=== PATIENT | male | born 1930 | race Two or more races ===

== ENCOUNTER 2017-03-19 10:44 | Inpatient (IN) | payer MEDICAID ==
[~2017-03-19] VITALS: Ht 160 cm; Wt 72.6 kg
[2017-03-19 10:45] VITALS: BP 132/61
[2017-03-19 11:13] LABS: BASOPHILS % (AUTO) 0.6 % (0.0-2.0); EOSINOPHILS % (AUTO) 1.2 % (0.0-3.0); LYMPHOCYTES % (AUTO) 19.1 % (20.0-45.0); MEAN CORPUSCULAR HEMOGLOBIN 29.5 PG (27.0-31.0); MEAN CORPUSCULAR HGB CONC 32.2 G/DL (32.0-36.0); MEAN CORPUSCULAR VOLUME 92 FL (80-99); MEAN PLATELET VOLUME 6.8 FL (6.5-10.1); MONOCYTES % (AUTO) 8.9 % (1.0-10.0); NEUTROPHILS % (AUTO) 70.3 % (45.0-75.0); PLATELET COUNT 199 K/UL (150-450); RED CELL DISTRIBUTION WIDTH 12.7 % (11.6-14.8); WHITE BLOOD COUNT 10.2 K/UL (4.8-10.8)
[2017-03-19] MEDS ORDERED: FLEET ENEMA133 ML RECTAL (11:20)
[2017-03-19] MEDS ORDERED: FERROUS SULFAT325 MG ORAL (11:20)
[2017-03-19] MEDS ORDERED: COLACE100 MG ORAL (11:20)
[2017-03-19] MEDS ORDERED: ASPIR 8181 MG ORAL (11:20)
[2017-03-19] MEDS ORDERED: MILK OF MA400 MG/51 ORAL (11:20)
[2017-03-19] MEDS ORDERED: NAMENDA5 MG ORAL (11:20)
[2017-03-19] MEDS ORDERED: DONEPEZIL HCL10 M2 ORAL (11:20)
[2017-03-19] MEDS ORDERED: TYLENOL325 MG ORAL (11:20)
[2017-03-19] MEDS ORDERED: BISACODYL5 MG RECTAL (11:20)
[2017-03-19 11:21] LABS: APPEARANCE,URINE CLEAR; KETONES,URINE NEGATIVE (NEGATIVE); LEUKOCYTE ESTERASE ,URINE NEGATIVE (NEGATIVE); NITRITE,URINE NEGATIVE (NEGATIVE); PH,URINE 6 (4.5-8.0); PROTEIN,URINE 1+ (NEGATIVE); UROBILINOGEN,URINE NORMAL MG/DL (0.0-1.0)
[2017-03-19 11:30] LABS: TROPONIN I < 0.30 ng/mL (<=0.30)
[2017-03-19 11:33] LABS: ALANINE AMINOTRANSFERASE 14 U/L (3-41); ANION GAP 13 (5-15); ASPARTATE AMINO TRANSFERASE 26 U/L (5-40); CALCIUM 9.7 mg/dL (8.6-10.2); CARBON DIOXIDE 32 mEQ/L (20-30); CHLORIDE 91 mEQ/L (98-107); CREATININE 1.3 mg/dL (0.7-1.2); HEMOLYSIS 2; POTASSIUM 3.2 mEQ/L (3.4-4.9); SODIUM 136 mEQ/L (135-145); TOTAL PROTEIN 7.3 g/dL (6.6-8.7)
[2017-03-19 11:39] LABS: BACTERIA,URINE OCCASIONAL /HPF; RBC,URINE 0-2 /HPF (0 - 0); SQUAMOUS EPITHELIAL CELL,UR OCCASIONAL /LPF (NONE/OCC); WBC,URINE 0-2 /HPF (0 - 0)
[2017-03-19 11:44] LABS: CKMB < 1.5 ng/mL (< 6.7)
[2017-03-19 12:00] VITALS: BP 137/65
--- NOTE | 2017-03-19 12:00 | Diagnostic Imaging Report ---
Indication: Chest Pain Comparison: None A single view chest radiograph was obtained. Findings: Scattered interstitial prominence noted nonspecific. Heart size is normal. Aorta is mildly ectatic. Bones are osteopenic. Impression: Prominence of the pulmonary interstitium, nonspecific.
[2017-03-19] MEDS ORDERED: cefTRIAXone 1 GM in NS 55 ML IVPB ONE (12:45)
[2017-03-19 14:00] VITALS: BP 132/61
--- NOTE | 2017-03-19 14:07 | Emergency Room Report ---
History of Present Illness General Chief Complaint: Abnormal Labs Source: Medical Record, EMS Present Illness HPI 86-year-old male presents to ED for evaluation. Per EMS patient noted to have low potassium. Last blood work showed potassium of 2.9. Upon arrival patient showing no signs of distress. [facility]. Patient has dementia. No reported fevers or chills. No reported chest pain or shortness of breath. No aggravating or relieving factors. No other associated symptoms Allergies: Coded Allergies: No Known Allergies (Unverified , 03/19/17) Patient History Past Medical History: DM, HTN, dementia Past Surgical History: none Pertinent Family History: none Social History: Denies: alcohol use, drug use, smoking Immunizations: UTD Reviewed Nursing Documentation: PMH: Agreed, PSxH: Agreed Nursing Documentation-PMH Past Medical History: No History, Except For Hx Hypertension: Yes Hx Diabetes: Yes Hx Dialysis: No - ACUTE KIDNEY FAILURE Hx Neurological Problems: Yes - ALZHEIMER Hx Cerebrovascular Accident: No - HIP FX Review of Systems All Other Systems: negative except mentioned in HPI Physical Exam Vital Signs Date Time Temp Pulse Resp B/P Pulse Ox O2 Delivery O2 Flow Rate FiO2 03/19/17 10:39 99.1 103 20 118/85 97 03/19/17 10:45 Room Air Sp02 EP Interpretation: reviewed, normal General Appearance: no apparent distress, other - dementia Head: normocephalic, atraumatic Eyes: bilateral eye PERRL, bilateral eye normal inspection ENT: hearing grossly normal, normal pharynx, no angioedema, normal voice Neck: full range of motion, supple/symm/no masses Respiratory: chest non-tender, lungs clear, normal breath sounds, speaking full sentences Cardiovascular #1: regular rate, rhythm, no edema Cardiovascular #2: 2+ carotid (R), 2+ carotid (L), 2+ radial (R), 2+ radial (L) , 2+ dorsalis pedis (R), 2+ dorsalis pedis (L) Gastrointestinal: normal bowel sounds, non tender, soft, non-distended, no guarding, no rebound Rectal: deferred Genitourinary: normal inspection, no CVA tenderness Musculoskeletal: back normal, gait/station normal, normal range of motion, non- tender Neurologic: other - dementia Psychiatric: other - dementia Reflexes: 3+ bicep (R), 3+ bicep (L), 3+ tricep (R), 3+ tricep (L), 3+ knee (R) , 3+ knee (L) Skin: normal color, no rash, warm/dry, well hydrated Lymphatic: no adenopathy Medical Decision Making Diagnostic Impression: Primary Impression: Hypokalemia Additional Impressions: ARF (acute renal failure) Qualified Codes: N17.9 - Acute kidney failure, unspecified UTI (urinary tract infection) Qualified Codes: N39.0 - Urinary tract infection, site not specified ER Course 86 yo M presents to ED for evaluation of abnormal labs. Noted to have low potassium Differential-hypokalemia, dehydration, sepsis Patient placed on stretcher. After initial history physical exam reveals an elderly male in no acute distress. I ordered labs, IV fluids, EKG, chest x-ray Labs-no leukocytosis, hemoglobin/hematocrit stable, creatinine 1.3, potassium 3.2, UA positive bacteria EKG-normal sinus rhythm no acute changes Chest x-ray unremarkable Given IV fluids, potassium repleted, abx given Case discussed with Dr. Elizabeth and he agreed to admit the patient to his service for further care and support diagnosis - hypokalemia, ARF, UTI admitted to floor in serious condition Labs Test 03/19/17 11:01 03/19/17 11:05 White Blood Count 10.2 K/UL (4.8-10.8) Red Blood Count 5.10 M/UL (4.70-6.10) Hemoglobin 15.1 G/DL (14.2-18.0) Hematocrit 46.8 % (42.0-52.0) Mean Corpuscular Volume 92 FL (80-99) Mean Corpuscular Hemoglobin 29.5 PG (27.0-31.0) Mean Corpuscular Hemoglobin Concent 32.2 G/DL (32.0-36.0) Red Cell Distribution Width 12.7 % (11.6-14.8) Platelet Count 199 K/UL (150-450) Mean Platelet Volume 6.8 FL (6.5-10.1) Neutrophils (%) (Auto) 70.3 % (45.0-75.0) Lymphocytes (%) (Auto) 19.1 % (20.0-45.0) Monocytes (%) (Auto) 8.9 % (1.0-10.0) Eosinophils (%) (Auto) 1.2 % (0.0-3.0) Basophils (%) (Auto) 0.6 % (0.0-2.0) Sodium Level 136 mEQ/L (135-145) Potassium Level 3.2 mEQ/L (3.4-4.9) Chloride Level 91 mEQ/L (98-107) Carbon Dioxide Level 32 mEQ/L (20-30) Anion Gap 13 (5-15) Blood Urea Nitrogen 14 mg/dL (7-23) Creatinine 1.3 mg/dL (0.7-1.2) Estimat Glomerular Filtration Rate mL/min (>60) Glucose Level 178 mg/dL (74-106) Calcium Level 9.7 mg/dL (8.6-10.2) Total Bilirubin 0.6 mg/dL (0.0-1.2) Aspartate Amino Transf (AST/SGOT) 26 U/L (5-40) Alanine Aminotransferase (ALT/SGPT) 14 U/L (3-41) Alkaline Phosphatase 149 U/L (40-129) Total Creatine Kinase 54 U/L (38-174) Creatine Kinase MB < 1.5 ng/mL (< 6.7) Creatine Kinase MB Relative Index Troponin I < 0.30 ng/mL (<=0.30) Pro-B-Type Natriuretic Peptide 412 pg/mL (0-450) Total Protein 7.3 g/dL (6.6-8.7) Albumin 3.8 g/dL (3.5-5.2) Globulin 3.5 g/dL Albumin/Globulin Ratio 1.0 (1.0-2.7) Urine Color Pale yellow Urine Appearance Clear Urine pH 6 (4.5-8.0) Urine Specific [place] 1.015 (1.005-1.035) Urine Protein 1+ (NEGATIVE) Urine Glucose (UA) 2+ (NEGATIVE) Urine Ketones Negative (NEGATIVE) Urine Occult Blood 1+ (NEGATIVE) Urine Nitrite Negative (NEGATIVE) Urine Bilirubin Negative (NEGATIVE) Urine Urobilinogen Normal MG/DL (0.0-1.0) Urine Leukocyte Esterase Negative (NEGATIVE) Urine RBC 0-2 /HPF (0 - 0) Urine WBC 0-2 /HPF (0 - 0) Urine Squamous Epithelial Cells Occasional /LPF Urine Bacteria Occasional /HPF (NONE) EKG Diagnostic Results Rate: normal Rhythm: NSR ST Segments: no acute changes ASA given to the pt in ED: No Rhythm Strip Diag. Results EP Interpretation: yes Rhythm: NSR, no PVC's, no ectopy Chest X-Ray Diagnostic Results EP Interpretation: No Findings: no consolidation, no effusion, no pneumothorax, no acute cardiopulmonary disease Number of Views: 1 Last Vital Signs Date Time Temp Pulse Resp B/P Pulse Ox O2 Delivery O2 Flow Rate FiO2 03/19/17 10:45 89 16 Room Air 03/19/17 10:45 99.9 132/61 95 Status: improved Disposition: ADMITTED INPATIENT Condition: Serious Referrals: Gurmeet Elizabeth MD (PCP) ELLIS ESQUEDA M.D. March 19, 2017 14:07
[2017-03-19] MEDS ORDERED: Fleet's Enema 133ml RECTAL PRN (14:45)
[2017-03-19] MEDS ORDERED: Acetaminophen 500mg (ES) tab ORAL ONE (14:45)
[2017-03-19] MEDS ORDERED: Milk of Magnesia 30ml Ud ORAL PRN (14:45)
[2017-03-19 16:14] VITALS: BP 150/68
[2017-03-19] MEDS: Docusate 100mg cap ORAL SCH (17:06)
--- NOTE | 2017-03-19 19:28 | History and Physical Report ---
DATE OF ADMISSION: 03/19/2017 HISTORY OF PRESENT ILLNESS: The patient is transferred to the ER because the patient had a potassium of 2.9 [facility] the [facility]. The patient also has azotemia and being admitted for azotemia, dehydration, and hypokalemia. The patient denies nausea, vomiting, or diarrhea. No fever or chills. No shortness of breath. Denies cough. No abdominal pain. PAST MEDICAL HISTORY: 1. GERD. 2. History of hypertension. 3. History of anemia. 4. History of psychosis and mood disorder. PAST SURGICAL HISTORY: Denies. SOCIAL HISTORY: Denies smoking, alcohol, or illicit drug abuse. FAMILY HISTORY: Noncontributory. REVIEW OF SYSTEMS: HEENT: Denies headache. Respiratory: Denies shortness of breath. Denies cough. Cardiovascular: Denies chest pain. GI: Denies nausea, vomiting, or diarrhea. Extremities: Denies pain in the lower extremities. 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 PHYSICAL EXAMINATION: VITAL SIGNS: Temperature is 97.2 degrees, pulse 70, and blood pressure 130/70. HEENT: PERRLA. NECK: Supple. No lymphadenopathy. CHEST: Clear to auscultation. GI: Soft, nontender, and nondistended. No organomegaly. EXTREMITIES: No edema. Moves all four extremities. NEUROLOGIC: Sensory is intact to light touch. LABORATORY DATA: Laboratory hernandez is significant for creatinine of 1.3, carbon dioxide of 32, and potassium of 3.2. ASSESSMENT: 1. Hypokalemia. 2. Dehydration. 3. Azotemia. PLAN: I have asked Dr. Ashraf to see the patient for the hypokalemia as well as for dehydration and for IV fluids. Gurmeet Elizabeth M.D. DR: RED JOB#: [id number] CC:
[2017-03-19 19:49] VITALS: BP 119/66
[2017-03-19] MEDS: Memantine 5 MG TAB ORAL SCH (21:11)
[2017-03-19] MEDS: Donepezil 10mg tab ORAL SCH (21:11)
[2017-03-19 23:52] VITALS: BP 126/68
[2017-03-20] VITALS: BP 126/68
[2017-03-20 04:00] VITALS: BP 125/68
[2017-03-20 06:43] LABS: BASOPHILS % (AUTO) 0.7 % (0.0-2.0); EOSINOPHILS % (AUTO) 1.5 % (0.0-3.0); LYMPHOCYTES % (AUTO) 24.4 % (20.0-45.0); MEAN CORPUSCULAR HEMOGLOBIN 30.2 PG (27.0-31.0); MEAN CORPUSCULAR VOLUME 92 FL (80-99); MEAN PLATELET VOLUME 7.1 FL (6.5-10.1); MONOCYTES % (AUTO) 9.7 % (1.0-10.0); NEUTROPHILS % (AUTO) 63.8 % (45.0-75.0); PLATELET COUNT 188 K/UL (150-450); RED BLOOD COUNT 4.51 M/UL (4.70-6.10); RED CELL DISTRIBUTION WIDTH 12.7 % (11.6-14.8); WHITE BLOOD COUNT 9.6 K/UL (4.8-10.8)
[2017-03-20 06:59] LABS: HEMOGLOBIN A1C 5.9 % (< 6.0)
[2017-03-20 07:25] LABS: THYROID STIMULATING HORMONE 0.374 uIU/mL (0.300-4.500)
[2017-03-20 07:33] LABS: ALANINE AMINOTRANSFERASE 11 U/L (3-41); ALBUMIN/GLOBULIN RATIO 0.7 (1.0-2.7); ANION GAP 13 (5-15); ASPARTATE AMINO TRANSFERASE 20 U/L (5-40); CALCIUM 9.6 mg/dL (8.6-10.2); CARBON DIOXIDE 29 mEQ/L (20-30); CHLORIDE 94 mEQ/L (98-107); CREATININE 1.3 mg/dL (0.7-1.2); CRP QUANT 17.9 mg/dL (< 0.5); HEMOLYSIS 7; MAGNESIUM 1.4 mg/dL (1.7-2.5); PHOSPHORUS 2.8 mg/dL (2.5-4.8); POTASSIUM 3.2 mEQ/L (3.4-4.9); SODIUM 136 mEQ/L (135-145); TOTAL PROTEIN 7.3 g/dL (6.6-8.7); URIC ACID 7.3 mg/dL (3.0-7.5)
[2017-03-20 08:00] VITALS: BP 116/70
[2017-03-20] MEDS: Memantine 5 MG TAB ORAL SCH ×2 (09:14→21:15)
[2017-03-20] MEDS: Aspirin EC 81mg tab ORAL SCH (09:16)
[2017-03-20] MEDS: Acetaminophen 500mg (ES) tab ORAL PRN (09:16)
[2017-03-20] MEDS: Docusate 100mg cap ORAL SCH ×3 (09:16→17:31)
--- NOTE | 2017-03-20 10:41 | General Progress Note ---
Assessment/Plan Problem List: (1) Hypokalemia ICD Codes: E87.6 - Hypokalemia SNOMED: 51084646 (2) ARF (acute renal failure) ICD Codes: N17.9 - Acute kidney failure, unspecified SNOMED: 20518558 Qualifiers: Qualified Codes: N17.9 - Acute kidney failure, unspecified Status: progressing Assessment/Plan check lytes arf dehyration is improving afebrile vitals stable Subjective ROS Limited/Unobtainable: Yes Constitutional: Reports: no symptoms Allergies: Coded Allergies: No Known Allergies (Unverified , 03/19/17) Objective Last 24 Hour Vital Signs Date Time Temp Pulse Resp B/P Pulse Ox O2 Delivery O2 Flow Rate FiO2 03/20/17 10:15 97.5 03/20/17 08:00 97.5 103 18 116/70 95 Room Air 03/20/17 04:00 98.4 99 18 125/68 94 Room Air 03/20/17 00:00 98.4 102 18 126/68 94 Room Air 03/19/17 23:52 98.4 102 18 126/68 94 Room Air 03/19/17 19:49 98.6 112 20 119/66 92 Room Air 03/19/17 16:14 97.3 98 23 150/68 93 Room Air 03/19/17 15:19 95 17 130/65 96 Room Air 03/19/17 14:00 98.7 92 18 132/61 97 Room Air 03/19/17 12:00 98.6 94 19 137/65 97 Room Air 03/19/17 10:45 89 16 Room Air 03/19/17 10:45 99.9 89 16 132/61 95 Room Air Intake and Output 03/19/17 03/20/17 19:00 07:00 Intake Total 555 ml Output Total 326 ml 700 ml Balance 229 ml -700 ml IV Total 555 ml Output Urine Total 325 ml 700 ml Stool Total 1 ml # Bowel Movements 2 Laboratory Tests 03/19/17 11:01: White Blood Count 10.2, Red Blood Count 5.10, Hemoglobin 15.1, Hematocrit 46.8, Mean Corpuscular Volume 92, Mean Corpuscular Hemoglobin 29.5, Mean Corpuscular Hemoglobin Concent 32.2, Red Cell Distribution Width 12.7, Platelet Count 199, Mean Platelet Volume 6.8, Neutrophils (%) (Auto) 70.3, Lymphocytes (%) (Auto) 19.1L, Monocytes (%) (Auto) 8.9, Eosinophils (%) (Auto) 1.2, Basophils (%) (Auto ) 0.6, Sodium Level 136, Potassium Level 3.2L, Chloride Level 91L, Carbon Dioxide Level 32H, Anion Gap 13, Blood Urea Nitrogen 14, Creatinine 1.3H, Estimat Glomerular Filtration Rate , Glucose Level 178H, Calcium Level 9.7, Total Bilirubin 0.6, Aspartate Amino Transf (AST/SGOT) 26, Alanine Aminotransferase (ALT/SGPT) 14, Alkaline Phosphatase 149H, Total Creatine Kinase 54, Creatine Kinase MB < 1.5, Creatine Kinase MB Relative Index , Troponin I < 0.30, Pro-B-Type Natriuretic Peptide 412, Total Protein 7.3, Albumin 3.8, Globulin 3.5, Albumin/Globulin Ratio 1.0 03/19/17 11:05: Urine Color Pale yellow, Urine Appearance Clear, Urine pH 6, Urine Specific Dixon 1.015, Urine Protein 1+H, Urine Glucose (UA) 2+H, Urine Ketones Negative , Urine Occult Blood 1+H, Urine Nitrite Negative, Urine Bilirubin Negative, Urine Urobilinogen Normal, Urine Leukocyte Esterase Negative, Urine RBC 0-2H, Urine WBC 0-2, Urine Squamous Epithelial Cells Occasional, Urine Bacteria Occasional 03/20/17 05:20: White Blood Count 9.6, Red Blood Count 4.51L, Hemoglobin 13.6L, Hematocrit 41.3L , Mean Corpuscular Volume 92, Mean Corpuscular Hemoglobin 30.2, Mean Corpuscular Hemoglobin Concent 33.0, Red Cell Distribution Width 12.7, Platelet Count 188, Mean Platelet Volume 7.1, Neutrophils (%) (Auto) 63.8, Lymphocytes (% ) (Auto) 24.4, Monocytes (%) (Auto) 9.7, Eosinophils (%) (Auto) 1.5, Basophils ( %) (Auto) 0.7, Sodium Level 136, Potassium Level 3.2L, Chloride Level 94L, Carbon Dioxide Level 29, Anion Gap 13, Blood Urea Nitrogen 15, Creatinine 1.3H, Estimat Glomerular Filtration Rate , Glucose Level 140H, Calcium Level 9.6, Total Bilirubin 0.6, Aspartate Amino Transf (AST/SGOT) 20, Alanine Aminotransferase (ALT/SGPT) 11, Alkaline Phosphatase 135H, Total Creatine Kinase 44, Pro-B-Type Natriuretic Peptide 571H, Total Protein 7.3, Albumin 3.1L , Globulin 4.2, Albumin/Globulin Ratio 0.7L, Hemoglobin A1c 5.9, Uric Acid 7.3, Phosphorus Level 2.8, Magnesium Level 1.4L, Gamma Glutamyl Transpeptidase 58, C- Reactive Protein, Quantitative 17.9H, Thyroid Stimulating Hormone (TSH) 0.374 Height (Feet): 5 Height (Inches): 3.00 Weight (Pounds): 160 EENT: PERRL/EOMI Neck: supple Cardiovascular: normal rate Respiratory/Chest: lungs clear Gurmeet Elizabeth MD March 20, 2017 10:41
--- NOTE | 2017-03-20 11:02 | Consultation ---
Consult Note Consult Note asked to eval for hypokalemia 86-year-old male presents to ED for evaluation. Per EMS patient noted to have low potassium. Last blood work showed potassium of 2.9. Upon arrival patient showing no signs of distress. Patient resides in [facility]. Patient has dementia. No reported fevers or chills. No reported chest pain or shortness of breath. No aggravating or relieving factors. No other associated symptoms Past Medical History: DM, HTN, dementia Past Surgical History: none Past Medical History: No History, Except For Hx Hypertension: Yes Hx Diabetes: Yes Hx Dialysis: No - ACUTE KIDNEY FAILURE Hx Neurological Problems: Yes - ALZHEIMER Hx Cerebrovascular Accident: No - HIP FX Patient examined- data reviewed . Assessment/Plan status: elevated serum Cr , with UA abnormal (2+ protein) , likely Diabetic Nephropathy Hypokalemia ? increase loss of GI Dementia DM Plan: K supplement IV bollous U Na Flomax FU lytes and renal parameters MARIA ESTHER CARIAS March 20, 2017 11:02
[2017-03-20 12:00] VITALS: BP 119/68
--- NOTE | 2017-03-20 12:47 | Cardiology Report ---
APPROVED REPORT EKG Measurement Heart [id number] Normal sinus rhythm Normal ECG
[2017-03-20 16:00] VITALS: BP 115/59
[2017-03-20 19:38] VITALS: BP 141/56
[2017-03-20] MEDS: Tamsulosin 0.4mg cap ORAL SCH (21:15)
[2017-03-20] MEDS: Donepezil 10mg tab ORAL SCH (21:15)
--- NOTE | 2017-03-20 23:07 | Consultation ---
Consult Note Consult Note HEMATOLOGY/ONCOLOGY CONSULT REASON FOR CONSULTATION: weight loss DATE OF ADMISSION: 03/19/2017 DATE OF CONSULT: 03/20/17 MERE MD: ANA HISTORY OF PRESENT ILLNESS: 86y old male with a pmhx DM, HTN transferred to the ER from [facility], because the [facility]. The patient also has azotemia and being admitted for azotemia, dehydration, and hypokalemia. The patient denies nausea, vomiting, or diarrhea. No fever or chills. No shortness of breath. Denies cough. No abdominal pain. Patient's BSA was 1.76 73kg and oncology service was consulted for further evaluation and treatment. PAST MEDICAL HISTORY: 1. GERD. 2. History of hypertension. 3. History of anemia. 4. History of psychosis and mood disorder. PAST SURGICAL HISTORY: Denies. SOCIAL HISTORY: Denies smoking, alcohol, or illicit drug abuse. FAMILY HISTORY: Noncontributory. REVIEW OF SYSTEMS: Constitutional: No fever, no chills, no night sweats, no fatigue Skin: No rashes, lumps, itchiness, dryness HEENT: No LUO, ear ache, visual changes, double vision, nosebleeds, sore throat, lumps, swollen glands Breasts: No lumps, pain, discharge Pulmonary: No cough, sputum, shortness of breath, coughing up blood, hemoptysis Cardiovascular: No chest pain, tightness, palpitations, syncope, claudication, orthopnea, PND GI: No nausea, vomiting, diarrhea, melena, hematochezia, change in appetite, abdominal pain : No dysuria, frequency, urgency, urinary incontinence, foamy urine Musculoskeletal: No joint swelling or muscle pain, trauma, back pain Neurologic: No dizziness, fainting, seizures, changes in smell or taste Psychiatric: No nervousness, stress, or depression, anxiety, hallucinations Endocrine: No weight change, heat or cold intolerance, tremor, insomnia PHYSICAL EXAMINATION: VITAL SIGNS: Reviewed and clinically stable HEENT: PERRLA. NECK: Supple. No lymphadenopathy. CHEST: Clear to auscultation. GI: Soft, nontender, and nondistended. No organomegaly. EXTREMITIES: No edema. Moves all four extremities. NEUROLOGIC: Sensory is intact to light touch. LABORATORY DATA: Creatinine of 1.3, carbon dioxide of 32, and potassium of 3.2. ASSESSMENT AND RECS: #. Weight loss - will need to obtain [facility] and send off for tumor markers. His BSA is 1.76, this is his 1st admission at [facility], need to establish a baseline. At this time, given advanced age and current functional status, hold off from aggressive imaging as would likely not receive aggressive therapy if malignancy found #. Anemia 2/2 chronic disease - monitor closely, is mild #. Hypokalemia. #. Dehydration. #. Azotemia. #. DM hx #. HTN Damian Batres March 20, 2017 23:07
[2017-03-21] VITALS: BP 139/57
[2017-03-21 04:00] VITALS: BP 142/55
[2017-03-21 07:44] LABS: ALANINE AMINOTRANSFERASE 12 U/L (3-41); ALBUMIN/GLOBULIN RATIO 0.7 (1.0-2.7); ANION GAP 13 (5-15); ASPARTATE AMINO TRANSFERASE 20 U/L (5-40); CALCIUM 9.5 mg/dL (8.6-10.2); CARBON DIOXIDE 29 mEQ/L (20-30); CHLORIDE 96 mEQ/L (98-107); CREATININE 1.3 mg/dL (0.7-1.2); HEMOLYSIS 2; MAGNESIUM 1.4 mg/dL (1.7-2.5); PHOSPHORUS 3.1 mg/dL (2.5-4.8); POTASSIUM 3.5 mEQ/L (3.4-4.9); SODIUM 138 mEQ/L (135-145)
[2017-03-21 07:53] VITALS: BP 109/60
[2017-03-21] MEDS: Memantine 5 MG TAB ORAL SCH ×2 (07:58→21:01)
[2017-03-21] MEDS: Docusate 100mg cap ORAL SCH ×3 (07:59→17:00)
[2017-03-21] MEDS: Aspirin EC 81mg tab ORAL SCH (07:59)
--- NOTE | 2017-03-21 10:51 | General Progress Note ---
Assessment/Plan Assessment/Plan ASSESSMENT AND RECS: #. Weight loss - will need to obtain records from shelter, his BSA is 1.76 , this is his 1st admission at [facility], need to establish a baseline. At this time, given advanced age and current functional status, hold off from aggressive imaging as would likely not receive aggressive therapy if malignancy found. tumor markers have been reviewed and thus far have yasemin negative #. Anemia 2/2 chronic disease - monitor closely, is mild only, does not require transfusions #. Hypokalemia #. Dehydration #. Azotemia #. DM hx #. HTN Subjective Constitutional: Reports: no symptoms HEENT: Reports: no symptoms Cardiovascular: Reports: no symptoms Respiratory: Reports: no symptoms Genitourinary: Reports: no symptoms Neurologic/Psychiatric: Reports: no symptoms Endocrine: Reports: no symptoms Hematologic/Lymphatic: Reports: no symptoms Allergies: Coded Allergies: No Known Allergies (Unverified , 03/19/17) Subjective stable, no events to review, no fevers or chills noted Objective Last 24 Hour Vital Signs Date Time Temp Pulse Resp B/P Pulse Ox O2 Delivery O2 Flow Rate FiO2 03/21/17 07:53 97.2 105 21 109/60 92 Room Air 03/21/17 04:00 98.2 58 20 142/55 97 Room Air 03/21/17 00:00 98.2 58 18 139/57 96 Room Air 03/20/17 19:38 98.9 98 20 141/56 98 Room Air 03/20/17 16:00 97.8 88 18 115/59 97 Room Air 03/20/17 12:00 98.2 93 18 119/68 97 Room Air Intake and Output 03/20/17 03/21/17 19:00 07:00 Intake Total 1200 ml Output Total 600 ml 550 ml Balance 600 ml -550 ml Intake Oral 700 ml IV Total 500 ml Output Urine Total 600 ml 550 ml # Bowel Movements 1 1 Laboratory Tests 03/20/17 13:00: Urine Random Sodium 66 03/21/17 04:35: Sodium Level 138, Potassium Level 3.5, Chloride Level 96L, Carbon Dioxide Level 29, Anion Gap 13, Blood Urea Nitrogen 18, Creatinine 1.3H, Estimat Glomerular Filtration Rate , Glucose Level 139H, Calcium Level 9.5, Phosphorus Level 3.1, Magnesium Level 1.4L, Ferritin 121, Total Bilirubin 0.5, Aspartate Amino Transf (AST/SGOT) 20, Alanine Aminotransferase (ALT/SGPT) 12, Alkaline Phosphatase 134H , Total Protein 7.0, Albumin 3.0L, Globulin 4.0, Albumin/Globulin Ratio 0.7L, Alpha Fetoprotein [Pending], Carcinoembryonic Antigen 2.0, CA 19-9 Antigen 6.35 , CA 125 Antigen [Pending] Height (Feet): 5 Height (Inches): 3.00 Weight (Pounds): 160 General Appearance: no apparent distress EENT: TMs normal Neck: normal alignment Cardiovascular: regular rhythm Respiratory/Chest: normal breath sounds Abdomen: no organomegaly Extremities: non-tender Edema: 1+ Leg (L), 1+ Leg (R) Edema: mild edema Neurologic: alert Skin: warm/dry Damian Batres March 21, 2017 10:51
[2017-03-21 12:00] VITALS: BP 108/61
--- NOTE | 2017-03-21 12:19 | General Progress Note ---
Assessment/Plan Status: stable Assessment/Plan Status: elevated serum Cr , with UA abnormal (2+ protein) , likely Diabetic Nephropathy Hypokalemia ? increase loss of GI : corrected Dementia DM Plan: K supplement Mag supplement- U Na : 66 Flomax FU lytes and renal parameters Subjective ROS Limited/Unobtainable: No Allergies: Coded Allergies: No Known Allergies (Unverified , 03/19/17) Objective Last 24 Hour Vital Signs Date Time Temp Pulse Resp B/P Pulse Ox O2 Delivery O2 Flow Rate FiO2 03/21/17 07:53 97.2 105 21 109/60 92 Room Air 03/21/17 04:00 98.2 58 20 142/55 97 Room Air 03/21/17 00:00 98.2 58 18 139/57 96 Room Air 03/20/17 19:38 98.9 98 20 141/56 98 Room Air 03/20/17 16:00 97.8 88 18 115/59 97 Room Air Intake and Output 03/20/17 03/21/17 19:00 07:00 Intake Total 1200 ml Output Total 600 ml 550 ml Balance 600 ml -550 ml Intake Oral 700 ml IV Total 500 ml Output Urine Total 600 ml 550 ml # Bowel Movements 1 1 Laboratory Tests 03/20/17 13:00: Urine Random Sodium 66 03/21/17 04:35: Sodium Level 138, Potassium Level 3.5, Chloride Level 96L, Carbon Dioxide Level 29, Anion Gap 13, Blood Urea Nitrogen 18, Creatinine 1.3H, Estimat Glomerular Filtration Rate , Glucose Level 139H, Calcium Level 9.5, Phosphorus Level 3.1, Magnesium Level 1.4L, Ferritin 121, Total Bilirubin 0.5, Aspartate Amino Transf (AST/SGOT) 20, Alanine Aminotransferase (ALT/SGPT) 12, Alkaline Phosphatase 134H , Total Protein 7.0, Albumin 3.0L, Globulin 4.0, Albumin/Globulin Ratio 0.7L, Alpha Fetoprotein [Pending], Carcinoembryonic Antigen 2.0, CA 19-9 Antigen 6.35 , CA 125 Antigen [Pending] Height (Feet): 5 Height (Inches): 3.00 Weight (Pounds): 160 General Appearance: no apparent distress Cardiovascular: other - variable Abdomen: soft Objective PE not changed MARIA ESTHER CARIAS March 21, 2017 12:19
[2017-03-21 16:00] VITALS: BP 120/58
[2017-03-21 20:10] VITALS: BP 124/70
[2017-03-21] MEDS: Tamsulosin 0.4mg cap ORAL SCH (21:01)
[2017-03-21] MEDS: Donepezil 10mg tab ORAL SCH (21:03)
[2017-03-22 00:03] VITALS: BP 134/70
[2017-03-22] MEDS: Acetaminophen 500mg (ES) tab ORAL PRN (01:50)
[2017-03-22 08:05] VITALS: BP 133/95
[2017-03-22] MEDS: Docusate 100mg cap ORAL SCH ×3 (08:37→17:26)
[2017-03-22] MEDS: Memantine 5 MG TAB ORAL SCH ×2 (08:37→21:56)
[2017-03-22] MEDS: Aspirin EC 81mg tab ORAL SCH (08:37)
--- NOTE | 2017-03-22 09:42 | General Progress Note ---
Assessment/Plan Status: stable Assessment/Plan Status: elevated serum Cr , with UA abnormal (2+ protein) , likely Diabetic Nephropathy Hypokalemia ? increase loss of GI : corrected Dementia DM Plan: no labs today K supplement as needed Mag supplement- as needed U Na : 66 Flomax FU lytes and renal parameters ? DC Subjective ROS Limited/Unobtainable: No Constitutional: Reports: malaise Allergies: Coded Allergies: No Known Allergies (Unverified , 03/19/17) Objective Last 24 Hour Vital Signs Date Time Temp Pulse Resp B/P Pulse Ox O2 Delivery O2 Flow Rate FiO2 03/22/17 08:05 97.9 85 19 133/95 95 Room Air 03/22/17 02:49 97.2 03/22/17 00:03 97.2 99 22 134/70 94 Room Air 03/21/17 20:10 98.4 95 22 124/70 92 Room Air 03/21/17 16:00 96.6 96 20 120/58 93 Room Air 03/21/17 12:00 96.4 104 20 108/61 92 Room Air Intake and Output 03/21/17 03/22/17 19:00 07:00 Intake Total 300 ml 200 ml Output Total 500 ml 400 ml Balance -200 ml -200 ml Intake Oral 300 ml IV Total 200 ml Output Urine Total 500 ml 400 ml # Voids 2 Height (Feet): 5 Height (Inches): 3.00 Weight (Pounds): 160 General Appearance: no apparent distress Objective PE not changed MARIA ESTHER CARIAS March 22, 2017 09:42
[2017-03-22 12:15] VITALS: BP 142/81
--- NOTE | 2017-03-22 14:45 | General Progress Note ---
Assessment/Plan Problem List: (1) Hypokalemia ICD Codes: E87.6 - Hypokalemia SNOMED: [id number] (2) ARF (acute renal failure) ICD Codes: N17.9 - Acute kidney failure, unspecified SNOMED: 96757604 Qualifiers: Qualified Codes: N17.9 - Acute kidney failure, unspecified Status: progressing Assessment/Plan afebrile lyte abnormality is improving vitals stable Subjective ROS Limited/Unobtainable: Yes Constitutional: Reports: no symptoms Allergies: Coded Allergies: No Known Allergies (Unverified , 03/19/17) Objective Last 24 Hour Vital Signs Date Time Temp Pulse Resp B/P Pulse Ox O2 Delivery O2 Flow Rate FiO2 03/22/17 12:15 97.8 75 20 142/81 98 Room Air 03/22/17 08:05 97.9 85 19 133/95 95 Room Air 03/22/17 02:49 97.2 03/22/17 00:03 97.2 99 22 134/70 94 Room Air 03/21/17 20:10 98.4 95 22 124/70 92 Room Air 03/21/17 16:00 96.6 96 20 120/58 93 Room Air Intake and Output 03/21/17 03/22/17 19:00 07:00 Intake Total 300 ml 200 ml Output Total 500 ml 400 ml Balance -200 ml -200 ml Intake Oral 300 ml IV Total 200 ml Output Urine Total 500 ml 400 ml # Voids 2 Height (Feet): 5 Height (Inches): 3.00 Weight (Pounds): 160 EENT: PERRL/EOMI Neck: supple Cardiovascular: normal rate Respiratory/Chest: lungs clear Gurmeet Elizabeth MD March 22, 2017 14:45
[2017-03-22 15:48] VITALS: BP 127/68
--- NOTE | 2017-03-22 16:52 | General Progress Note ---
Assessment/Plan Assessment/Plan ASSESSMENT AND RECS: #. Weight loss - will need to obtain records from [facility] and send off for tumor markers. #. Anemia 2/2 chronic disease - monitor closely, is mild #. Hypokalemia. #. Dehydration. #. Azotemia. #. DM hx #. HTN Medardo Otero M.D. March 20, 2017 23:07 Subjective Constitutional: Reports: no symptoms HEENT: Reports: no symptoms Cardiovascular: Reports: no symptoms Respiratory: Reports: no symptoms Gastrointestinal/Abdominal: Reports: no symptoms Genitourinary: Reports: no symptoms Neurologic/Psychiatric: Reports: no symptoms Endocrine: Reports: no symptoms Hematologic/Lymphatic: Reports: no symptoms Allergies: Coded Allergies: No Known Allergies (Unverified , 03/19/17) Objective Last 24 Hour Vital Signs Date Time Temp Pulse Resp B/P Pulse Ox O2 Delivery O2 Flow Rate FiO2 03/22/17 15:48 98.0 85 20 127/68 97 Room Air 03/22/17 12:15 97.8 75 20 142/81 98 Room Air 03/22/17 08:05 97.9 85 19 133/95 95 Room Air 03/22/17 02:49 97.2 03/22/17 00:03 97.2 99 22 134/70 94 Room Air 03/21/17 20:10 98.4 95 22 124/70 92 Room Air Intake and Output 03/21/17 03/22/17 19:00 07:00 Intake Total 300 ml 200 ml Output Total 500 ml 400 ml Balance -200 ml -200 ml Intake Oral 300 ml IV Total 200 ml Output Urine Total 500 ml 400 ml # Voids 2 Height (Feet): 5 Height (Inches): 3.00 Weight (Pounds): 160 General Appearance: no apparent distress EENT: normal ENT inspection Neck: supple Cardiovascular: regular rhythm Respiratory/Chest: lungs clear Abdomen: non tender Pelvis: no masses Extremities: non-tender Edema: no edema noted Arm (L), no edema noted Arm (R), no edema noted Leg (L), no edema noted Leg (R), no edema noted Pedal (L), no edema noted Pedal (R), no edema noted Generalized Neurologic: alert Skin: warm/dry Lymphatic: normal anterior cervical (L), normal anterior cervical (R), normal axillary (L), normal axillary (R), normal inguinal (L), normal inguinal (R), normal other, normal posterior cervical (L), normal posterior cervical (R), normal submandibular (L), normal submandibular (R), normal supraclavicular (L), normal supraclavicular (R) KOKO SALAZAR March 22, 2017 16:52
[2017-03-22 19:59] VITALS: BP 125/68
[2017-03-22] MEDS: Donepezil 10mg tab ORAL SCH (21:57)
[2017-03-22] MEDS: Tamsulosin 0.4mg cap ORAL SCH (21:57)
[2017-03-23] VITALS: BP 119/66
[2017-03-23 04:00] VITALS: BP 114/68
[2017-03-23 08:00] VITALS: BP 122/61
[2017-03-23] MEDS: Memantine 5 MG TAB ORAL SCH ×2 (09:09→21:19)
[2017-03-23] MEDS: Docusate 100mg cap ORAL SCH ×3 (09:09→17:13)
[2017-03-23] MEDS: Aspirin EC 81mg tab ORAL SCH (09:09)
--- NOTE | 2017-03-23 09:16 | General Progress Note ---
Assessment/Plan Problem List: (1) Hypokalemia ICD Codes: E87.6 - Hypokalemia SNOMED: 94110481 (2) ARF (acute renal failure) ICD Codes: N17.9 - Acute kidney failure, unspecified SNOMED: 64133916 Qualifiers: Qualified Codes: N17.9 - Acute kidney failure, unspecified Status: progressing Assessment/Plan lyte abnormailty afebrile vitals stable no cp dc planning lytes normalized Subjective ROS Limited/Unobtainable: Yes Allergies: Coded Allergies: No Known Allergies (Unverified , 03/19/17) Objective Last 24 Hour Vital Signs Date Time Temp Pulse Resp B/P Pulse Ox O2 Delivery O2 Flow Rate FiO2 03/23/17 08:00 97.5 98 20 122/61 98 Room Air 03/23/17 04:00 97.9 69 20 114/68 97 Room Air 03/23/17 00:00 97.9 72 20 119/66 99 Room Air 03/22/17 19:59 97.9 91 20 125/68 99 Room Air 03/22/17 15:48 98.0 85 20 127/68 97 Room Air 03/22/17 12:15 97.8 75 20 142/81 98 Room Air Intake and Output 03/22/17 03/23/17 19:00 07:00 Intake Total 1380 ml 120 ml Output Total 1380 ml 750 ml Balance 0 ml -630 ml Intake Oral 1380 ml 120 ml Output Urine Total 1380 ml 750 ml # Voids 4 # Bowel Movements 1 Height (Feet): 5 Height (Inches): 3.00 Weight (Pounds): 160 Cardiovascular: normal rate Respiratory/Chest: lungs clear Gurmeet Elizabeth MD March 23, 2017 09:16
[2017-03-23] MEDS ORDERED: NS 275ml ONE (09:32)
[2017-03-23] MEDS ORDERED: NS 550ML IV ONE (09:32)
--- NOTE | 2017-03-23 10:28 | General Progress Note ---
Assessment/Plan Status: stable Assessment/Plan Status: elevated serum Cr , with UA abnormal (2+ protein) , likely Diabetic Nephropathy Hypokalemia ? increase loss of GI : corrected Dementia DM Plan: no labs today K supplement as needed Mag supplement- as needed U Na : 66 Flomax FU lytes and renal parameters ? DC Subjective ROS Limited/Unobtainable: No Constitutional: Reports: malaise Allergies: Coded Allergies: No Known Allergies (Unverified , 03/19/17) Objective Last 24 Hour Vital Signs Date Time Temp Pulse Resp B/P Pulse Ox O2 Delivery O2 Flow Rate FiO2 03/23/17 08:00 97.5 98 20 122/61 98 Room Air 03/23/17 04:00 97.9 69 20 114/68 97 Room Air 03/23/17 00:00 97.9 72 20 119/66 99 Room Air 03/22/17 19:59 97.9 91 20 125/68 99 Room Air 03/22/17 15:48 98.0 85 20 127/68 97 Room Air 03/22/17 12:15 97.8 75 20 142/81 98 Room Air Intake and Output 03/22/17 03/23/17 19:00 07:00 Intake Total 1380 ml 120 ml Output Total 1380 ml 750 ml Balance 0 ml -630 ml Intake Oral 1380 ml 120 ml Output Urine Total 1380 ml 750 ml # Voids 4 # Bowel Movements 1 Height (Feet): 5 Height (Inches): 3.00 Weight (Pounds): 160 General Appearance: no apparent distress Objective PE not changed MARIA ESTHER CARIAS March 23, 2017 10:28
[2017-03-23 11:56] VITALS: BP 129/76
--- NOTE | 2017-03-23 13:32 | General Progress Note ---
Assessment/Plan Assessment/Plan ASSESSMENT AND RECS: #. Weight loss - will need to obtain records from [facility], his BSA is 1.76 , this is his 1st admission at [facility], need to establish a baseline. At this time, given advanced age and current functional status, hold off from aggressive imaging as would likely not receive aggressive therapy if malignancy found. tumor markers have been reviewed and thus far have been negative #. Anemia 2/2 chronic disease - monitor closely, is mild only, does not require transfusions #. Hypokalemia #. Dehydration #. Azotemia #. DM hx #. HTN Subjective Constitutional: Reports: no symptoms HEENT: Reports: no symptoms Cardiovascular: Reports: no symptoms Respiratory: Reports: no symptoms Gastrointestinal/Abdominal: Reports: poor appetite Genitourinary: Reports: no symptoms Neurologic/Psychiatric: Reports: no symptoms Endocrine: Reports: no symptoms Hematologic/Lymphatic: Reports: anemia Allergies: Coded Allergies: No Known Allergies (Unverified , 03/19/17) Subjective stable, no events to review, no fevers or chills noted Objective Last 24 Hour Vital Signs Date Time Temp Pulse Resp B/P Pulse Ox O2 Delivery O2 Flow Rate FiO2 03/23/17 11:56 97.7 90 16 129/76 96 Room Air 03/23/17 08:00 97.5 98 20 122/61 98 Room Air 03/23/17 04:00 97.9 69 20 114/68 97 Room Air 03/23/17 00:00 97.9 72 20 119/66 99 Room Air 03/22/17 19:59 97.9 91 20 125/68 99 Room Air 03/22/17 15:48 98.0 85 20 127/68 97 Room Air Intake and Output 03/22/17 03/23/17 19:00 07:00 Intake Total 1380 ml 120 ml Output Total 1380 ml 750 ml Balance 0 ml -630 ml Intake Oral 1380 ml 120 ml Output Urine Total 1380 ml 750 ml # Voids 4 # Bowel Movements 1 Height (Feet): 5 Height (Inches): 3.00 Weight (Pounds): 160 General Appearance: alert EENT: TMs normal Neck: supple Cardiovascular: regular rhythm Respiratory/Chest: no respiratory distress Abdomen: no organomegaly Extremities: non-tender Edema: 1+ Leg (L), 1+ Leg (R) Edema: mild edema Neurologic: alert Skin: warm/dry Kleynberg,Damian L. March 23, 2017 13:32
[2017-03-23 16:00] VITALS: BP 133/74
[2017-03-23 20:10] VITALS: BP 128/70
[2017-03-23] MEDS: Donepezil 10mg tab ORAL SCH (21:19)
[2017-03-23] MEDS: Tamsulosin 0.4mg cap ORAL SCH (21:19)
[2017-03-24 00:12] VITALS: BP 127/77
[2017-03-24 04:00] VITALS: BP 126/71
[2017-03-24] MEDS: Acetaminophen 500mg (ES) tab ORAL PRN (04:03)
[2017-03-24 08:01] VITALS: BP 122/68
--- NOTE | 2017-03-24 08:02 | General Progress Note ---
Assessment/Plan Problem List: (1) Hypokalemia ICD Codes: E87.6 - Hypokalemia SNOMED: 72322300 (2) ARF (acute renal failure) ICD Codes: N17.9 - Acute kidney failure, unspecified SNOMED: 24802014 Qualifiers: Qualified Codes: N17.9 - Acute kidney failure, unspecified Status: progressing Assessment/Plan afebrile lytes normalized dc to snf Subjective ROS Limited/Unobtainable: Yes Constitutional: Reports: no symptoms Allergies: Coded Allergies: No Known Allergies (Unverified , 03/19/17) Objective Last 24 Hour Vital Signs Date Time Temp Pulse Resp B/P Pulse Ox O2 Delivery O2 Flow Rate FiO2 03/24/17 04:00 97.5 86 22 126/71 94 Room Air 03/24/17 00:12 97.5 96 22 127/77 95 Room Air 03/23/17 20:10 97.5 88 22 128/70 94 Room Air 03/23/17 16:00 97.3 87 21 133/74 95 Room Air 03/23/17 11:56 97.7 90 16 129/76 96 Room Air 03/23/17 08:00 97.5 98 20 122/61 98 Room Air Intake and Output 03/23/17 03/24/17 19:00 07:00 Intake Total 480 ml Output Total 400 ml 900 ml Balance 80 ml -900 ml Intake Oral 480 ml Output Urine Total 400 ml 900 ml # Bowel Movements 2 1 Height (Feet): 5 Height (Inches): 3.00 Weight (Pounds): 160 Cardiovascular: normal rate Respiratory/Chest: lungs clear Abdomen: soft Gurmeet Elizabeth MD March 24, 2017 08:02
[2017-03-24] MEDS: Docusate 100mg cap ORAL SCH ×2 (08:25→12:55)
[2017-03-24] MEDS: Aspirin EC 81mg tab ORAL SCH (08:25)
[2017-03-24] MEDS: Memantine 5 MG TAB ORAL SCH (08:25)
[2017-03-24 12:02] VITALS: BP 124/72
--- NOTE | 2017-03-24 12:35 | General Progress Note ---
Assessment/Plan Assessment/Plan ASSESSMENT AND RECS: #. Weight loss - will need to obtain records from [facility], his BSA is 1.76 , this is his 1st admission at [place], need to establish a baseline. At this time, given advanced age and current functional status, hold off from aggressive imaging as would likely not receive aggressive therapy if malignancy found. tumor markers have been reviewed and thus far have been negative #. Anemia 2/2 chronic disease - monitor closely, is mild only, does not require transfusions, hgb >7 #. Hypokalemia #. Dehydration #. Azotemia #. DM hx #. HTN Subjective Constitutional: Reports: no symptoms HEENT: Reports: no symptoms Cardiovascular: Reports: no symptoms Respiratory: Reports: no symptoms Gastrointestinal/Abdominal: Reports: poor fluid intake Genitourinary: Reports: no symptoms Neurologic/Psychiatric: Reports: no symptoms Endocrine: Reports: no symptoms Hematologic/Lymphatic: Reports: anemia Allergies: Coded Allergies: No Known Allergies (Unverified , 03/19/17) Subjective stable, no events to review, no fevers Objective Last 24 Hour Vital Signs Date Time Temp Pulse Resp B/P Pulse Ox O2 Delivery O2 Flow Rate FiO2 03/24/17 12:02 97.3 87 20 124/72 96 Room Air 03/24/17 08:01 97.6 106 20 122/68 98 Room Air 03/24/17 04:00 97.5 86 22 126/71 94 Room Air 03/24/17 00:12 97.5 96 22 127/77 95 Room Air 03/23/17 20:10 97.5 88 22 128/70 94 Room Air 03/23/17 16:00 97.3 87 21 133/74 95 Room Air Intake and Output 03/23/17 03/24/17 19:00 07:00 Intake Total 480 ml Output Total 400 ml 900 ml Balance 80 ml -900 ml Intake Oral 480 ml Output Urine Total 400 ml 900 ml # Bowel Movements 2 1 Height (Feet): 5 Height (Inches): 3.00 Weight (Pounds): 160 General Appearance: alert EENT: normal ENT inspection Neck: supple Cardiovascular: normal rate Respiratory/Chest: normal breath sounds Abdomen: no organomegaly Extremities: non-tender Edema: 1+ Leg (L), 1+ Leg (R) Edema: mild edema Neurologic: alert Skin: warm/dry Damian Batres March 24, 2017 12:35
--- NOTE | 2017-03-25 07:52 | Discharge Summary ---
Discharge Summary Hospital Course Date of Admission March 19, 2017 at 12:18 Date of Discharge March 24, 2017 at 14:10 Admitting Diagnosis ARF, hypokalemia SANDRA Middleton is a 86 year old male who was admitted on March 19, 2017 at 12:18 for Acute Renal Failure,Hypokalemia Hospital Course d/c summary #[id number] Discharge Medications Continued Medications: Acetaminophen (Tylenol) 325 Mg Tablet 650 MG ORAL Q6H PRN for Prn Pain/Headache/Temp > 101, #30 TAB 0 Refills Aspirin* (Aspir 81*) 81 Mg Tablet.dr 81 MG ORAL DAILY, TAB Bisacodyl* (Dulcolax*) 5 Mg Tablet.dr 10 MG RECTAL DAILY PRN for Constipation, #10 TAB 0 Refills Docusate Sodium* (Colace*) 100 Mg Capsule 100 MG ORAL DAILY, CAP Donepezil Hcl* (Donepezil Hcl*) 10 Mg Tab.rapdis 10 MG ORAL BEDTIME, TAB Ferrous Sulfate* (Ferrous Sulfate*) 325 Mg Tablet 325 MG ORAL THREE TIMES A DAY, #90 TAB 0 Refills Magnesium Hydroxide* (Milk Of Magnesia*) 400 Mg/5 Ml Oral.susp 30 ML ORAL DAILY PRN for Constipation, ML Memantine Hcl* (Namenda*) 5 Mg Tablet 5 MG ORAL TWICE A DAY, TAB Na Phos,M-B/Na Phos,Di-Ba* (Fleet Enema*) 133 Ml Enema 133 ML RECTAL DAILY PRN for Constipation, ML 0 Refills Discharge Condition Upon Discharge: stable Discharge Disposition Patient was discharged to SNF/Subacute Facility(03) Discharge Diagnoses: Discharge Instructions Discharge Instructions Special Instructions I have been assigned to complete a D/C Summary on this account. I was not involved in the patient management Jane Herrera NP (Vanchtein) March 25, 2017 07:52
--- NOTE | 2017-03-26 02:01 | Discharge Summary 2 SIG ---
DATE OF ADMISSION: 03/19/2017 DATE OF DISCHARGE: 03/24/2017 REASON FOR ADMISSION: 86-year-old male was sent from the alf facility for evaluation of hypokalemia and weight loss. In the emergency department, the patient himself could not provide any information since he had an underlying dementia. There was no reported fever or chills. No reported chest pain or shortness of breath. The patient with underlying history of diabetes, hypertension and Alzheimer dementia. Vital signs were stable. The patient noted to have potassium- 3.2, BUN- 14 and creatinine- 1.3. Troponin was negative. EKG revealed normal sinus rhythm. No acute changes. Chest x-ray was unremarkable. No leukocytosis. Stable hemoglobin and hematocrit. Urinalysis revealed +1 protein, +2 glucose, no pyuria, negative for nitrate, and occasional bacteria. The patient was given IV bolus. Potassium was repleted. The patient was given empiric antibiotics for possible UTI . The patient was admitted for further management. ADMITTING DIAGNOSES: 1. Acute renal failure vs chronic with elevated creatinine 2. Hypokalemia. 3. Possible urinary tract infection. 4. Dementia. 5. Diabetes mellitus. HOSPITAL COURSE: The patient was admitted to the floor. Nephrology and hematology/ oncology consults were requested. Cement Paver seen and evaluated the patient in lieu of the acute renal failure as well as the proteinuria. According to the applied biology professor, possibly diabetic nephropathy. The patient was managed with IV fluids. Potassium was replaced as needed. Magnesium was replaced as needed. The patient was started on Flomax. Renal parameters and electrolytes were closely monitored. Nephrotoxics were avoided. Hypokalemia corrected likely to increased loss from the GI tract. Urine sodium was checked and was 66. Per metal weather stripper / oncologist due to reported from SNF weight loss cancer tumor markers were checked. Alpha-fetoprotein, CEA, CA 19-9, PSA, and CA-125 - all negative. The patient had a mild anemia. Albumin- 3.0. There was no baseline since this was a first admission for this patient to the [facility]. Given advanced age and current functional status, oncologist /metal weather stripper choose to hold down from aggressive imaging as the patient likely will not receive aggressive therapies should malignancy be found. Anemia was mild, not required blood transfusion. Dehydration resolved after IV hydration. Creatinine without change, chronic renal insufficiency, likely diabetic nephropathy . Blood pressure was stable without any antihypertensive medication. Blood sugar was elevated just for one day, other than that it was normal . Hemoglobin A1c - 5.9. The patient was stable for discharge. FINAL DIAGNOSES: , 1. Acute renal failure on chronic renal insufficiency 2. Likely diabetic nephropathy. 3. Electrolyte imbalance (hypokalemia, hypomagnesemia). 4. Dementia. 5. Dehydration-resolved. 6. Anemia of chronic disease. 7. History of hypertension. 8. History of diabetes. DISCHARGE MEDICATIONS: See medication reconciliation list. DISCHARGE INSTRUCTIONS: The patient was discharged to alf facility. FOLLOWUP: Follow up with medical doctor at the facility. Gurmeet Elizabeth M.D. I have been assigned to dictate discharge summary on this account and I was not involved in the patient's management. Jane MoranWoodhull Medical CenterCharles N.PMendez DR: AUTUMN JOB#: [id number] CC: LILY
== END 2017-03-24 14:10 | DRG 460 ==
LOC: EDBD 10:44 → EMR 11:50 → 4W 12:18 → EDBEDREQ 15:17 → 4W 18:51
DX: N17.9 Acute kidney failure, unspecified (principal); E11.21 Type 2 diabetes mellitus with diabetic nephropathy; G30.9 Alzheimer's disease, unspecified; F02.80 Dementia in other diseases classified elsewhere, unspecified severity, without behavioral disturbance, psychotic disturbance, mood disturbance, and anxiety; E87.6 Hypokalemia; E86.0 Dehydration; K21.9 Gastro-esophageal reflux disease without esophagitis; I10 Essential (primary) hypertension; D63.8 Anemia in other chronic diseases classified elsewhere; E83.42 Hypomagnesemia; R63.4 Abnormal weight loss
CPT/HCPCS: 36415; 71010; 80053; 81003; 82105; 82378; 82550; 82553; 82728; 82962; 82977; 83036; 83735; 83880; 84100; 84153; 84300; 84443; 84484; 84550; 85025; 86140; 86301; 86304; 87081; 93005; J8499

== ENCOUNTER 2017-07-14 09:10 | Inpatient (IN) | payer MEDICAID ==
[~2017-07-14] VITALS: Ht 165.1 cm; Wt 72.6 kg
[~2017-07-14 09:10] MED LIST: ASPIR 8181 MG ORAL; BISACODYL5 MG RECTAL; COLACE100 MG ORAL; DONEPEZIL HCL10 M2 ORAL; FERROUS SULFAT325 MG ORAL; FLEET ENEMA133 ML RECTAL; MILK OF MA400 MG/51 ORAL; NAMENDA5 MG ORAL; TYLENOL325 MG ORAL
[2017-07-14] MEDS ORDERED: TRAZODONE HCL50 MG ORAL (09:16)
--- NOTE | 2017-07-14 09:16 | Emergency Room Report ---
History of Present Illness General Source: Medical Record, PMD Present Illness HPI [id number] sent from SNF by PMD For 2 days rectal bleeding EMS left before I was able to obtain additional information Patient unreliable historian d/t dementia PMD Not sure how long he has had rectal bleed PMD not sure what medical problems he has had Patient denies chest pain, SOB, abd pain, nausea/vomiting, fever/chills Medical problems from previous admission 1. Acute renal failure on chronic renal insufficiency 2. Likely diabetic nephropathy. 3. Electrolyte imbalance (hypokalemia, hypomagnesemia). 4. Dementia. 5. Dehydration-resolved. 6. Anemia of chronic disease. 7. History of hypertension. 8. History of diabetes. Allergies: Coded Allergies: No Known Allergies (Unverified , 03/19/17) Patient History Past Medical History: DM, HTN, dementia Past Surgical History: none Pertinent Family History: none Social History: Denies: smoking, alcohol use, drug use Immunizations: UTD Reviewed Nursing Documentation: PMH: Agreed, PSxH: Agreed Nursing Documentation-PMH Hx Hypertension: Yes Hx Diabetes: Yes - type2 Hx Dialysis: No - ACUTE KIDNEY FAILURE Hx Neurological Problems: Yes - ALZHEIMER Hx Cerebrovascular Accident: No - HIP FX Hx Dementia: Yes Hx Alzheimer's Disease: Yes Review of Systems All Other Systems: limited - dementia Physical Exam Sp02 EP Interpretation: reviewed, normal General Appearance: normal inspection, well appearing, no apparent distress, alert, GCS 15, non-toxic, other - Well appearing elderly male Head: normocephalic, atraumatic Eyes: bilateral eye PERRL, bilateral eye EOMI ENT: normal ENT inspection, hearing grossly normal, normal voice Neck: normal inspection, full range of motion, supple, no bony tend Respiratory: normal inspection, lungs clear, normal breath sounds, no respiratory distress, no retraction, no wheezing Cardiovascular #1: regular rate, rhythm, no edema Gastrointestinal: normal inspection, normal bowel sounds, non tender, soft, no guarding, no hernia Rectal: normal rectal tone, other - Scattered areas of bright red blood around rectum and in diaper. No active hemorrhage. No fissure. No hemmorhoids. Genitourinary: no CVA tenderness Musculoskeletal: normal inspection, back normal, normal range of motion, Jose Luis' s Sign negative Neurologic: normal inspection, alert, oriented x3, responsive, passenger conductor III-XII nml as tested, motor strength/tone normal, speech normal Psychiatric: normal inspection, judgement/insight normal, mood/affect normal Skin: normal inspection, normal color, no rash Lymphatic: normal inspection Medical Decision Making Medicare Attestation I Lauro Dow MD hereby attest that the medical record entry for date of service, 07/14/17 accurately reflects signatures/notations that I made in my capacity as MD when I treated/diagnosed the above listed Medicare beneficiary. I attest that this information is true, accurate and complete to the best of my knowledge. I understand that any falsification, omission, or concealment of material fact may subject me to administrative, civil, or criminal liability. This patient warrants hospital admission for extreme of age and has a condition that cannot be treated as outpatient. Diagnostic Impression: Primary Impression: Rectal bleeding Additional Impressions: YAMIL (acute kidney injury) CKD (chronic kidney disease) Qualified Codes: N18.9 - Chronic kidney disease, unspecified Pancreatitis Qualified Codes: K85.90 - Acute pancreatitis without necrosis or infection, unspecified Proctitis Colitis ER Course VSS. Afebrile No active rectal bleed Endorsed to Dr Han for med/surg admission at 1000am Dr Acuna consulted at Dr Han's result No need for acute transfusion at this time H&H stable Lipase elevated but CT does not show pancreatitis CT does show colitis/proctitis which could be source for bright red blood per rectum SerumCr 1.4 is at baseline EKG Diagnostic Results Rate: normal Rhythm: NSR ST Segments: no acute changes ASA given to the pt in ED: No Rhythm Strip Diag. Results EP Interpretation: yes Rate: 75 Rhythm: NSR, no PVC's, no ectopy Status: improved Disposition: ADMITTED INPATIENT Condition: Serious LAURO DOW M.D. Jul 14, 2017 09:16
[2017-07-14 09:45] LABS: BASOPHILS % (AUTO) 0.8 % (0.0-2.0); EOSINOPHILS % (AUTO) 2.1 % (0.0-3.0); LYMPHOCYTES % (AUTO) 27.4 % (20.0-45.0); MEAN CORPUSCULAR HEMOGLOBIN 30.1 PG (27.0-31.0); MEAN CORPUSCULAR HGB CONC 32.5 G/DL (32.0-36.0); MEAN CORPUSCULAR VOLUME 93 FL (80-99); MONOCYTES % (AUTO) 6.5 % (1.0-10.0); NEUTROPHILS % (AUTO) 63.3 % (45.0-75.0); PLATELET COUNT 198 K/UL (150-450); RED BLOOD COUNT 5.42 M/UL (4.70-6.10); RED CELL DISTRIBUTION WIDTH 12.4 % (11.6-14.8); WHITE BLOOD COUNT 7.1 K/UL (4.8-10.8)
[2017-07-14 09:51] VITALS: BP 113/60
[2017-07-14 09:51] LABS: APPEARANCE,URINE CLEAR; KETONES,URINE NEGATIVE (NEGATIVE); LEUKOCYTE ESTERASE ,URINE NEGATIVE (NEGATIVE); NITRITE,URINE NEGATIVE (NEGATIVE); PH,URINE 6 (4.5-8.0); PROTEIN,URINE NEGATIVE (NEGATIVE); UROBILINOGEN,URINE NORMAL MG/DL (0.0-1.0)
[2017-07-14 09:55] LABS: ALANINE AMINOTRANSFERASE 11 U/L (3-41); ANION GAP 11 (5-15); ASPARTATE AMINO TRANSFERASE 18 U/L (5-40); CARBON DIOXIDE 32 mEQ/L (20-30); CHLORIDE 95 mEQ/L (98-107); CREATININE 1.4 mg/dL (0.7-1.2); HEMOLYSIS 7; LIPASE 85 U/L (< 60); POTASSIUM 3.4 mEQ/L (3.4-4.9); SODIUM 138 mEQ/L (135-145); TOTAL PROTEIN 8.1 g/dL (6.6-8.7)
[2017-07-14 09:58] LABS: INR 0.9 (0.9-1.1); PROTHROMBIN TIME 9.8 SEC (9.30-11.50)
[2017-07-14 10:12] LABS: BACTERIA,URINE OCCASIONAL /HPF; SQUAMOUS EPITHELIAL CELL,UR OCCASIONAL /LPF (NONE/OCC); WBC,URINE 0-2 /HPF (0 - 0)
--- NOTE | 2017-07-14 11:08 | Diagnostic Imaging Report ---
Indication: PAIN rectal bleeding x2 days, elevated lipase Technique: Spiral acquisitions obtained through the abdomen and pelvis. No oral contrast utilized, per emergency room physician request No IV contrast utilized, per referring physician request.. Multiplanar reconstructions were generated. Total dose length product 943 mGycm. CTDIvol(s) 17 mGy. Dose reduction achieved using automated exposure control Comparison: None Findings: Lack of enteric contrast limits assessment of the GI tract. The appendix is normal. There is marked wall thickening of the rectum and distal sigmoid, as well as infiltration of the perirectal and perisigmoid fat. There is equivocal minimal infiltration of the fat surrounding the cecum as well as the distal transverse colon, but no gross wall thickening is evident. There are a few scattered colonic diverticula. No small bowel distention. No free or loculated intraperitoneal air or fluid. There is a tiny fat-containing umbilical hernia. Lack of IV contrast limits assessment of the solid organs. The liver is grossly unremarkable. The gallbladder and bile ducts are unremarkable. The pancreas is somewhat atrophic. The spleen, adrenals are unremarkable. The kidneys are unremarkable. No pelvic mass or adenopathy. Unremarkable bladder, prostate, seminal vesicles. The included lung bases demonstrate multiple calcified nodules. There is a noncalcified somewhat irregular opacity measuring 10 mm, incompletely included, at the right lung base. Scattered areas of reticulonodular opacity are seen at both lung bases. The bones demonstrate fairly extensive degenerative spondylosis. Surgical hardware is seen reducing an old left hip fracture. Unusual dense focal infiltration of the subcutaneous fat of the bilateral upper buttocks is noted. Impression: Marked wall thickening of the rectum and distal sigmoid, with associated infiltration of the perirectal and perisigmoid fat. Findings most likely represent colitis/proctitis, otherwise nonspecific as regards etiology. The possibility of underlying neoplasm should also be considered. Diverticulitis is a less likely possibility, as no definite diverticula are noted in this area. No evidence of associated abscess. Very questionable minimal infiltration of the fat surrounding the proximal ascending and distal transverse colon, without associated wall thickening. Doubt significance, but if real could indicate mild focal colitis changes. Bilateral pulmonary parenchymal calcified nodules and reticulonodular opacities, likely on the basis of post inflammatory change. 10 mm noncalcified irregular opacity at the right lung base, incompletely included. Consider further evaluation with chest CT if clinically indicated Unusual dense focal infiltration of the deep subcutaneous fat of the bilateral upper buttocks. Significance uncertain, could represent small areas of contusion. Incidental findings as noted, including small fat-containing umbilical hernia, somewhat atrophic pancreas, degenerative spondylosis, postsurgical and posttraumatic changes of the left hip The CT scanner at [facility] is accredited by the [employer] and the scans are performed using protocols designed to limit radiation exposure to as low as reasonably achievable to attain images of sufficient resolution adequate for diagnostic evaluation.
[2017-07-14] MEDS ORDERED: Nulytely 4L ORAL ONE (12:15)
[2017-07-14] MEDS ORDERED: Sorbitol Solution UD 30ml ORAL ONE (12:30)
[2017-07-14 12:34] VITALS: BP 119/67
[2017-07-14] MEDS: D5 1/2NS 1,000 ML IV SCH (14:17)
[2017-07-14] MEDS ORDERED: D5 1/2NS 1000ml IV ONE (16:13)
[2017-07-14 16:59] VITALS: BP 126/46
[2017-07-14] MEDS: Memantine 10mg tab ORAL SCH (17:09)
[2017-07-14 20:00] VITALS: BP 125/58
[2017-07-14] MEDS: TraZODone HCl 25 mg tablet ORAL SCH (21:11)
[2017-07-14] MEDS: Donepezil 10mg tab ORAL SCH (21:11)
--- NOTE | 2017-07-14 23:30 | Consultation ---
DATE OF CONSULTATION: 07/14/2017 CHIEF COMPLAINT: Rectal bleeding. HISTORY OF PRESENT ILLNESS: Most of the history was obtained per chart. This is an 87-year-old male with a past medical history of dementia, hypertension, renal insufficiency, and diabetes, came to the hospital with rectal bleeding. Imaging showed evidence of proctitis, thickening of the colonic wall, suggestive of the ileocolitis, unlikely to be diverticulitis. This patient was admitted for GI bleeding. PAST MEDICAL HISTORY: 1. Diabetes. 2. Hypertension. 3. Renal insufficiency. 4. Dementia. ALLERGIES: No known allergies. MEDICATIONS: Please see medication reconciliation list. SOCIAL HISTORY: Unable to obtain. PAST SURGICAL HISTORY: None. FAMILY HISTORY: Noncontributory. REVIEW OF SYSTEMS: Limited given the patient's current dementia. PHYSICAL EXAMINATION: GENERAL: This is a well-developed man, in no acute distress. VITAL SIGNS: Temperature is 98.2, pulse 85, respirations 17, and blood pressure 113/60. HEENT: Normocephalic and atraumatic. Sclerae anicteric. NECK: Supple. No lymphadenopathy. CARDIOVASCULAR: Regular rhythm. Plus S1 and S2. LUNGS: Clear to auscultation bilaterally. ABDOMEN: Positive bowel sounds. Soft and nontender. No rebound. No guarding. No peritoneal sign. EXTREMITIES: No cyanosis. No clubbing. No edema. LABORATORY AND DIAGNOSTIC DATA: White count is 7.1, hemoglobin 16, hematocrit 50, and platelet count is 198,000. Chemistry, sodium 138, potassium 3.4, BUN is 20, and creatinine is 1.4. Lipase was elevated at 85. Imaging studies, CT of the abdomen and pelvis showed evidence of atrophic pancreas, thickening of the rectosigmoid area, no obvious other findings except for umbilical hernia. ASSESSMENT AND PLAN: This is an 87-year-old male with gastrointestinal bleeding. CT showed evidence of proctitis and colitis. Plan to send the stool studies for culture and C. difficile. The patient to be prepped to have a colonoscopy tomorrow. Monitor for laboratories, hold off transfusion at this time. Repeat amylase and lipase for tomorrow. I want to thank, Dr. Elizabeth, for this kind referral. Bladimir Eduarda Escalante DR: MELODY JOB#: [id number] CC:
[2017-07-15] VITALS (10 sets, daily range): BP systolic 118–139; BP diastolic 65–90
[2017-07-15 06:58] LABS: BASOPHILS % (AUTO) 0.5 % (0.0-2.0); EOSINOPHILS % (AUTO) 3.1 % (0.0-3.0); LYMPHOCYTES % (AUTO) 33.4 % (20.0-45.0); MEAN CORPUSCULAR HEMOGLOBIN 31.9 PG (27.0-31.0); MEAN CORPUSCULAR HGB CONC 34.8 G/DL (32.0-36.0); MEAN CORPUSCULAR VOLUME 92 FL (80-99); MEAN PLATELET VOLUME 7.5 FL (6.5-10.1); MONOCYTES % (AUTO) 7.8 % (1.0-10.0); NEUTROPHILS % (AUTO) 55.3 % (45.0-75.0); PLATELET COUNT 178 K/UL (150-450); RED BLOOD COUNT 4.81 M/UL (4.70-6.10); RED CELL DISTRIBUTION WIDTH 12.5 % (11.6-14.8); WHITE BLOOD COUNT 7.7 K/UL (4.8-10.8)
[2017-07-15] MEDS ORDERED: Propofol 10mg/ml 20ml IV ONE (07:00)
[2017-07-15] MEDS ORDERED: Midazolam 2mg/2ml Inj ONE (07:00)
[2017-07-15 07:13] LABS: ANION GAP 13 (5-15); CALCIUM 9.7 mg/dL (8.6-10.2); CARBON DIOXIDE 29 mEQ/L (20-30); CHLORIDE 96 mEQ/L (98-107); CREATININE 1.1 mg/dL (0.7-1.2); HEMOLYSIS 4; POTASSIUM 3.2 mEQ/L (3.4-4.9); SODIUM 138 mEQ/L (135-145)
[2017-07-15] MEDS ORDERED: NS 550ML IV ONE (07:30)
--- NOTE | 2017-07-15 07:32 | Pre-Procedure Note/Attestation ---
Pre-Procedure Note/Attestation Complete Prior to Procedure Planned Procedure: not applicable Procedure Narrative: colonoscopy Indications for Procedure Pre-Operative Diagnosis: hematochezia, abnormal CT Attestation I attest that I discussed the nature of the procedure; its benefits; risks and complications; and alternatives (and the risks and benefits of such alternatives ), prior to the procedure, with the patient (or the patient's legal sales representative). I attest that, if there was a reasonable possibility of needing a blood transfusion, the patient (or the patient's legal sales representative) was given the [facility] standardized written summary, pursuant to the Lexa Yaneth Blood Safety Act ([place] Health and Safety Code # 1645, as amended). I attest that I re-evaluated the patient just prior to the surgery and that there has been no change in the patient's H&P, except as documented below: BOUCHRA BLUE Jul 15, 2017 07:32
--- NOTE | 2017-07-15 08:09 | General Progress Note ---
Assessment/Plan Assessment/Plan Assessment - Hematochezia - abnormal CT - DM - OBS Recommendations - NPO - Monitor labs - Colonoscopy today Post procedure - Colonoscopy: Proctitis from 5-15 cm, possible sigmoid inflammation, multiple biopsies obtained - Recommendation: PO diet, Mesalamine enemas, f/u path Subjective Allergies: Coded Allergies: No Known Allergies (Unverified , 03/19/17) Subjective Patient seen in GI lab confused NAD d/w family re planned procedure Objective Last 24 Hour Vital Signs Date Time Temp Pulse Resp B/P (MAP) Pulse Ox O2 Delivery O2 Flow Rate FiO2 07/15/17 04:00 96.4 81 19 139/90 97 Room Air 07/15/17 00:00 96.6 87 19 121/65 97 Room Air 07/14/17 20:00 97.0 96 20 125/58 Room Air 07/14/17 16:59 97.9 85 19 126/46 94 Room Air 07/14/17 12:34 97.1 75 20 119/67 96 Room Air 07/14/17 12:07 98.2 79 16 113/60 98 Room Air 07/14/17 12:05 98.2 79 16 98 Room Air 07/14/17 09:51 98.2 85 17 113/60 97 Room Air 07/14/17 09:11 98.2 87 16 130/76 99 Room Air Laboratory Tests 07/14/17 09:25: Urine Color Pale yellow, Urine Appearance Clear, Urine pH 6, Urine Specific [place] 1.015, Urine Protein Negative, Urine Glucose (UA) Negative, Urine Ketones Negative, Urine Occult Blood 1+H, Urine Nitrite Negative, Urine Bilirubin Negative, Urine Urobilinogen Normal, Urine Leukocyte Esterase Negative , Urine RBC 2-4H, Urine WBC 0-2, Urine Squamous Epithelial Cells Occasional, Urine Bacteria Occasional 07/14/17 09:33: White Blood Count 7.1, Red Blood Count 5.42, Hemoglobin 16.3, Hematocrit 50.2, Mean Corpuscular Volume 93, Mean Corpuscular Hemoglobin 30.1, Mean Corpuscular Hemoglobin Concent 32.5, Red Cell Distribution Width 12.4, Platelet Count 198, Mean Platelet Volume 8.0, Neutrophils (%) (Auto) 63.3, Lymphocytes (%) (Auto) 27.4, Monocytes (%) (Auto) 6.5, Eosinophils (%) (Auto) 2.1, Basophils (%) (Auto ) 0.8, Prothrombin Time 9.8, Prothromb Time International Ratio 0.9, Activated Partial Thromboplast Time 27, Sodium Level 138, Potassium Level 3.4, Chloride Level 95L, Carbon Dioxide Level 32H, Anion Gap 11, Blood Urea Nitrogen 20, Creatinine 1.4H, Estimat Glomerular Filtration Rate , Glucose Level 218H, Calcium Level 10.0, Total Bilirubin 0.6, Aspartate Amino Transf (AST/SGOT) 18, Alanine Aminotransferase (ALT/SGPT) 11, Alkaline Phosphatase 165H, Total Protein 8.1, Albumin 4.1, Globulin 4.0, Albumin/Globulin Ratio 1.0, Lipase 85H 07/14/17 11:30: Stool Occult Blood Positive 07/14/17 12:30: Stool Occult Blood [Pending] 07/15/17 05:35: White Blood Count 7.7, Red Blood Count 4.81, Hemoglobin 15.4, Hematocrit 44.2, Mean Corpuscular Volume 92, Mean Corpuscular Hemoglobin 31.9H, Mean Corpuscular Hemoglobin Concent 34.8, Red Cell Distribution Width 12.5, Platelet Count 178, Mean Platelet Volume 7.5, Neutrophils (%) (Auto) 55.3, Lymphocytes (%) (Auto) 33.4, Monocytes (%) (Auto) 7.8, Eosinophils (%) (Auto) 3.1H, Basophils (%) (Auto ) 0.5, Sodium Level 138, Potassium Level 3.2L, Chloride Level 96L, Carbon Dioxide Level 29, Anion Gap 13, Blood Urea Nitrogen 14, Creatinine 1.1, Estimat Glomerular Filtration Rate , Glucose Level 166H, Calcium Level 9.7 Height (Feet): 5 Height (Inches): 5.00 Weight (Pounds): 160 Objective NCAT supple CTA RRR abd soft ND NT no edema non focal, confused HILARIOBOUCHRA PAT Jul 15, 2017 08:09
--- NOTE | 2017-07-15 08:41 | Anethesia Preoperative Eval ---
Anesthesia Pre-op PMH/ROS General Date of Evaluation: Jul 15, 2017 Time of Evaluation: 07:22 Anesthesiologist: Aisha ASA Score: ASA 3 Mallampati Score Class I : Soft palate, uvula, fauces, pillars visible Class II: Soft palate, uvula, fauces visible Class III: Soft palate, base of uvula visible Class IV: Only hard plate visible Mallampati Classification: Class II Surgeon: Imani Diagnosis: Rectal bleeding Surgical Procedure: Colonoscopy Anesthesia History: none Family History: no anesthesia problems Allergies: Coded Allergies: No Known Allergies (Unverified , 03/19/17) Medications: see eMAR Past Medical History Cardiovascular: Reports: HTN, Denies: CAD, [place], valve dz, arrhythmia, other Pulmonary: Denies: asthma, COPD, OMAR, other Gastrointestinal/Genitourinary: Reports: GERD Neurologic/Psychiatric: Reports: dementia, Denies: CVA, depression/anxiety, TIA, other Endocrine: Reports: DM, Denies: hypothyroidism, steroids, other HEENT: Denies: cataract (L), cataract (R), glaucoma, RENO-SPARKS (L), RENO-SPARKS (R), other Hematology/Immune: Denies: anemia, DVT, bleeding disorder, other Musculoskeletal/Integumentary: Denies: OA, RA, DJD, DDD, edema, other PMH Narrative: as above admitted for acute rectal bleeding PSxH Narrative: see chart Anesthesia Pre-op Phys. Exam Physician Exam Last Vital Signs Date Time Temp Pulse Resp B/P (MAP) Pulse Ox O2 Delivery O2 Flow Rate FiO2 07/15/17 08:30 97.8 77 13 136/77 100 Nasal Cannula 3.0 Constitutional: NAD Neurologic: other - unable to obtaine Cardiovascular: RRR Respiratory: CTA Gastrointestinal: S/NT/ND Airway Exam Mallampati Score: Class III MO: limited Neck: stiff ROM: limited Teeth: missing Dentures: no upper, no lower Anesthesia Pre-op A/P Labs Hematology Test 07/14/17 09:33 07/15/17 05:35 White Blood Count 7.1 K/UL (4.8-10.8) 7.7 K/UL (4.8-10.8) Red Blood Count 5.42 M/UL (4.70-6.10) 4.81 M/UL (4.70-6.10) Hemoglobin 16.3 G/DL (14.2-18.0) 15.4 G/DL (14.2-18.0) Hematocrit 50.2 % (42.0-52.0) 44.2 % (42.0-52.0) Mean Corpuscular Volume 93 FL (80-99) 92 FL (80-99) Mean Corpuscular Hemoglobin 30.1 PG (27.0-31.0) 31.9 PG (27.0-31.0) H Mean Corpuscular Hemoglobin Concent 32.5 G/DL (32.0-36.0) 34.8 G/DL (32.0-36.0) Red Cell Distribution Width 12.4 % (11.6-14.8) 12.5 % (11.6-14.8) Platelet Count 198 K/UL (150-450) 178 K/UL (150-450) Mean Platelet Volume 8.0 FL (6.5-10.1) 7.5 FL (6.5-10.1) Neutrophils (%) (Auto) 63.3 % (45.0-75.0) 55.3 % (45.0-75.0) Lymphocytes (%) (Auto) 27.4 % (20.0-45.0) 33.4 % (20.0-45.0) Monocytes (%) (Auto) 6.5 % (1.0-10.0) 7.8 % (1.0-10.0) Eosinophils (%) (Auto) 2.1 % (0.0-3.0) 3.1 % (0.0-3.0) H Basophils (%) (Auto) 0.8 % (0.0-2.0) 0.5 % (0.0-2.0) Coagulation Test 07/14/17 09:33 Prothrombin Time 9.8 SEC (9.30-11.50) Prothromb Time International Ratio 0.9 (0.9-1.1) Activated Partial Thromboplast Time 27 SEC (23-33) Chemistry Test 07/14/17 09:33 07/15/17 05:35 Sodium Level 138 mEQ/L (135-145) 138 mEQ/L (135-145) Potassium Level 3.4 mEQ/L (3.4-4.9) 3.2 mEQ/L (3.4-4.9) L Chloride Level 95 mEQ/L (98-107) L 96 mEQ/L (98-107) L Carbon Dioxide Level 32 mEQ/L (20-30) H 29 mEQ/L (20-30) Anion Gap 11 (5-15) 13 (5-15) Blood Urea Nitrogen 20 mg/dL (7-23) 14 mg/dL (7-23) Creatinine 1.4 mg/dL (0.7-1.2) H 1.1 mg/dL (0.7-1.2) Estimat Glomerular Filtration Rate mL/min (>60) mL/min (>60) Glucose Level 218 mg/dL (74-106) H 166 mg/dL (74-106) H Calcium Level 10.0 mg/dL (8.6-10.2) 9.7 mg/dL (8.6-10.2) Total Bilirubin 0.6 mg/dL (0.0-1.2) Aspartate Amino Transf (AST/SGOT) 18 U/L (5-40) Alanine Aminotransferase (ALT/SGPT) 11 U/L (3-41) Alkaline Phosphatase 165 U/L (40-129) H Total Protein 8.1 g/dL (6.6-8.7) Albumin 4.1 g/dL (3.5-5.2) Globulin 4.0 g/dL Albumin/Globulin Ratio 1.0 (1.0-2.7) Lipase 85 U/L (< 60) H Risk Assessment & Plan Assessment: ASA 3 Plan: MAC Status Change Before Surgery: No Pre-Antibiotics Drug: none AWA COATES M.D. Jul 15, 2017 08:41
--- NOTE | 2017-07-15 08:43 | Immediate Post-Op Evaluation ---
Immediate Post-Op Evalulation Immediate Post-Op Evalulation Procedure: Colonoscopy Date of Evaluation: Jul 15, 2017 Time of Evaluation: 08:10 IV Fluids: 300 Blood Products: none Estimated Blood Loss: min Urinary Output: none Blood Pressure Systolic: 132 Blood Pressure Diastolic: 72 Pulse Rate: 74 Respiratory Rate: 20 O2 Sat by Pulse Oximetry: 98 Temperature (Fahrenheit): 97.6 Pain Score (1-10): 2 Nausea: No Vomiting: No Complications none Patient Status: reacts, patent, none Hydration Status: adequate AWA COATES M.D. Jul 15, 2017 08:43
--- NOTE | 2017-07-15 08:45 | 48 Hour Post Anesthesia Eval ---
Post Anesthesia Evaluation Procedure: Colonoscopy Date of Evaluation: Jul 15, 2017 Time of Evaluation: 08:43 Blood Pressure Systolic: 128 0: 68 Pulse Rate: 72 Respiratory Rate: 20 Temperature (Fahrenheit): 97.6 O2 Sat by Pulse Oximetry: 98 Airway: patent Nausea: No Vomiting: No Pain Intensity: 2 Hydration Status: adequate Cardiopulmonary Status: stable Mental Status/LOC: patient returned to baseline Follow-up Care/Observations: n/a Post-Anesthesia Complications: none Follow-up care needed: N/A AWA COATES M.D. Jul 15, 2017 08:45
--- NOTE | 2017-07-15 10:16 | History and Physical Report ---
DATE OF ADMISSION: 07/14/2017 REASON FOR ADMISSION: Rectal bleeding. HISTORY OF PRESENT ILLNESS: The patient according to the staff at the group home had 2 rectal bleeds. The patient also denies any abdominal pain. Denies nausea, vomiting, or diarrhea. The patient is a relatively poor historian. Denies shortness of breath. Denies cough. Denies chills. PAST MEDICAL HISTORY: Constipation, iron-deficiency anemia, advanced dementia, and mood disorder. PAST SURGICAL HISTORY: Denies. ALLERGIES: No known allergies. MEDICATIONS: Bisacodyl, aspirin, Colace, benazepril, ferrous sulfate, Namenda, and trazodone. FAMILY HISTORY: Noncontributory. SOCIAL HISTORY: Denies history of alcohol or illicit drug abuse. He lives in a group home. REVIEW OF SYSTEMS: HEENT: Denies headaches. Respiratory: Denies shortness of breath. Denies cough. Cardiovascular: Denies chest pain. Gastrointestinal: Denies nausea, vomiting, or diarrhea. Extremities: Denies pain. However, the patient is a very poor historian. PHYSICAL EXAMINATION: VITAL SIGNS: Temperature is 98.2, pulse is 87, and blood pressure is 130/76. HEENT: PERRLA. NECK: Supple. No lymphadenopathy. CHEST: Clear to auscultation. GASTROINTESTINAL: Soft, nontender, and nondistended. No organomegaly. EXTREMITIES: No edema. NEUROLOGIC: Reflexes are equal on both sides. Oriented to name only. LABORATORY DATA: Labs showed WBC of 7.1, hemoglobin 16.3, and platelets 198. Sodium is 138, potassium 3.4, BUN of 20, creatinine 1.4, glucose of 218. Lipase of 85. ASSESSMENT AND PLAN: 1. Rectal bleeding. I have asked Dr. Escalante to see the patient for the gastrointestinal bleed, rectal bleeding, and further workup. 2. For azotemia, I have asked Dr. Ashraf to see him for the azotemia dehydration. Gurmeet Elizabeth M.D. DR: DEBBY JOB#: [id number] CC:
[2017-07-15] MEDS: D5 1/2NS 1,000 ML IV SCH (11:00)
[2017-07-15] MEDS: Mesalamine Enema 4gm/60ml RECTAL SCH ×2 (11:00→20:36)
[2017-07-15] MEDS: Memantine 10mg tab ORAL SCH ×2 (11:00→17:01)
--- NOTE | 2017-07-15 12:56 | Consultation ---
Consult Note Consult Note asked to eval for Cr 1.4 admitted with Lower GI bleed Assessment/Plan - Cr 1.4 likely dehydration - Hematochezia - abnormal CT - DM - OBS - Anemia Plan: Per GI Hydrate Monitor renal parameters and lytes and H&H Per orders MARIA ESTHER CARIAS Jul 15, 2017 12:56
[2017-07-15] MEDS: Donepezil 10mg tab ORAL SCH (20:35)
[2017-07-15] MEDS: TraZODone HCl 25 mg tablet ORAL SCH (20:35)
--- NOTE | 2017-07-15 21:01 | General Progress Note ---
Assessment/Plan Problem List: (1) Colitis ICD Codes: K52.9 - Noninfective gastroenteritis and colitis, unspecified SNOMED: 13259722 (2) Rectal bleeding ICD Codes: K62.5 - Hemorrhage of anus and rectum SNOMED: 23750467 (3) CKD (chronic kidney disease) ICD Codes: N18.9 - Chronic kidney disease, unspecified SNOMED: 549938610 Qualifiers: Qualified Codes: N18.9 - Chronic kidney disease, unspecified Status: progressing Assessment/Plan afebrile vitals stable gi bleed colonscopy per gi obs cri check h/h moniter for bleeding Subjective ROS Limited/Unobtainable: Yes Constitutional: Reports: no symptoms Allergies: Coded Allergies: No Known Allergies (Unverified , 03/19/17) Objective Last 24 Hour Vital Signs Date Time Temp Pulse Resp B/P (MAP) Pulse Ox O2 Delivery O2 Flow Rate FiO2 07/15/17 20:00 97.2 85 20 125/72 94 Room Air 07/15/17 15:56 97.0 79 19 121/71 Room Air 07/15/17 12:30 97.0 77 19 120/70 95 Room Air 07/15/17 09:02 97.6 82 20 118/75 95 Room Air 07/15/17 08:45 72 20 98 07/15/17 08:43 74 20 98 07/15/17 08:30 97.8 77 13 136/77 100 Nasal Cannula 3.0 07/15/17 08:17 74 14 138/79 100 Nasal Cannula 3.0 07/15/17 08:12 74 13 131/80 97 Nasal Cannula 3.0 07/15/17 08:07 97.2 78 15 132/81 97 Nasal Cannula 3.0 07/15/17 04:00 96.4 81 19 139/90 97 Room Air 07/15/17 00:00 96.6 87 19 121/65 97 Room Air Intake and Output 07/15/17 07/16/17 18:59 06:59 Intake Total 960 ml Output Total 380 ml Balance 580 ml Intake Oral 360 ml IV Total 600 ml Output Urine Total 380 ml # Voids 6 # Bowel Movements 1 Laboratory Tests 07/15/17 05:35: White Blood Count 7.7, Red Blood Count 4.81, Hemoglobin 15.4, Hematocrit 44.2, Mean Corpuscular Volume 92, Mean Corpuscular Hemoglobin 31.9H, Mean Corpuscular Hemoglobin Concent 34.8, Red Cell Distribution Width 12.5, Platelet Count 178, Mean Platelet Volume 7.5, Neutrophils (%) (Auto) 55.3, Lymphocytes (%) (Auto) 33.4, Monocytes (%) (Auto) 7.8, Eosinophils (%) (Auto) 3.1H, Basophils (%) (Auto ) 0.5, Sodium Level 138, Potassium Level 3.2L, Chloride Level 96L, Carbon Dioxide Level 29, Anion Gap 13, Blood Urea Nitrogen 14, Creatinine 1.1, Estimat Glomerular Filtration Rate , Glucose Level 166H, Calcium Level 9.7 Height (Feet): 5 Height (Inches): 5.00 Weight (Pounds): 160 Neck: supple Cardiovascular: normal rate Gurmeet Elizabeth MD Jul 15, 2017 21:01
--- NOTE | 2017-07-15 21:33 | Endoscopy Procedure Note ---
Endoscopy Procedure Note Indication for Procedure: gib Procedures Performed: colonoscopy Operative Findings/Diagnosis: Proctitis from 5-15 cm, possible sigmoid inflammation, Specimen: yes Pt Tolerated Procedure Well: Yes Estimated Blood Loss: none Anesthesiologist: see note Anesthesia: MAC Medication Given: see anesthesia record Implant(s) used?: No 50 yrs or older w/o bx or poly: Not Applicable 10yrs. F/U not recommended: Not Applicable If not recommended, why?: BOUCHRA BLUE Jul 15, 2017 21:33
--- NOTE | 2017-07-15 21:35 | Brief Operative Note ---
Immediate Post Operative Note Operative Note Chief Complaint: BRBPR Pre-op Diagnosis: hematochezia, abnormal CT Procedure: colon bx Post-op Diagnosis: Proctitis from 5-15 cm, possible sigmoid inflammation, Surgeon: fredi Anesthesiologist: see report Anesthesia: MAC Specimen: yes Complications: none Condition: stable Fluids: per anesthesia Estimated Blood Loss: none Drains: none Implant(s) used?: No BOUCHRA BLUE Jul 15, 2017 21:35
--- NOTE | 2017-07-15 22:00 | Procedure Note ---
DATE OF PROCEDURE: 07/15/2017 PROCEDURE: Colonoscopy with biopsy. SURGEON: Shayy Viramontes M.D. ANESTHESIA: Please see the Anesthesia report for details. PRE-ENDOSCOPIC DIAGNOSES: Hematochezia and abnormal CT scan. POST-ENDOSCOPIC DIAGNOSIS: Proctitis with mild patchy sigmoid inflammation, status post random biopsies. DESCRIPTION OF PROCEDURE: The procedure, its risks, indications, and alternatives were explained to the patient's family and an informed consent was obtained. The patient was then sedated in the left lateral decubitus position and a diagnostic colonoscope was introduced into the rectum and advanced to the terminal ileum up to 50 cm without difficulty. The colonoscope was then gradually withdrawn and mucosa examined carefully. Examination of the terminal ileal mucosa and much of the proximal colonic mucosa was unremarkable. In the sigmoid colon at approximately 30 cm davin, there was some patchy inflammation. The rectum had severe inflammation starting at about 5 to 6 cm into the rectum and going up to about 15 cm. The very distal rectum appeared to be spared. Inflammatory changes consisted of mucosal edema, friability, and granularity. Random biopsies were obtained throughout the colon as well as the terminal ileum and sent to pathology for review. The colonoscope was removed and the patient was sent to recovery in good condition. COMPLICATIONS: None ASSESSMENT: This examination was notable for distal colitis. The rectal level inflammation seen on this examination corresponds to the changes seen on the CT scan. The other areas noted on the CT scan as being mildly abnormal, however, appeared to be normal on this examination. Biopsies will be evaluated to rule out microscopic evidence of disease. In the meantime, the patient can be started on Rowasa enemas for presumptive diagnosis of inflammatory bowel disease. Further recommendation will be made once the pathology has been reviewed. RECOMMENDATIONS: 1. Begin Rowasa enemas every 12 hours. 2. Resume oral diet. Thank you for asking me to participate in the care of this patient. Shayy Viramontes M.D. DR: Gigi JOB#: [id number] CC:
[2017-07-16] VITALS: BP 116/64
[2017-07-16 04:00] VITALS: BP 118/79
[2017-07-16 08:09] VITALS: BP 98/58
[2017-07-16] MEDS: Memantine 10mg tab ORAL SCH ×2 (09:49→18:22)
[2017-07-16 11:26] VITALS: BP 122/81
--- NOTE | 2017-07-16 11:30 | Consultation ---
DATE OF CONSULTATION: 07/15/2017 HEMATOLOGY/ONCOLOGY CONSULTATION CONSULTING PHYSICIAN: Damian Batres M.D. REQUESTING PHYSICIAN: Gurmeet Elizabeth M.D. REASON FOR CONSULTATION: Evaluation of GI bleed and rectal bleeding. IDENTIFICATION DATA: Dear Dr. Gurmeet Elizabeth, The patient is a pleasant 87-year-old male with past medical history significant for constipation, history of iron-deficiency anemia, advanced dementia, and mood disorder, at this time presents with two episodes of rectal bleeding at the residential, otherwise denies any abdominal pain. night sweats noted at this moment. Denies any cough. Nephrology service consulted. Creatinine 1.4. GI service consulted as well. Imaging did show evidence of proctitis, thickening of the colonic wall, suggestive of ileocolitis, unlikely diverticulitis. PAST MEDICAL HISTORY: Diabetes mellitus, hypertension, renal insufficiency, and dementia. PAST SURGICAL HISTORY: None noted. MEDICATIONS: Reviewed. ALLERGIES: No known drug allergies. SOCIAL HISTORY: Difficult to obtain. FAMILY HISTORY: Noncontributory. REVIEW OF SYSTEMS: Limited . PHYSICAL EXAMINATION: VITAL SIGNS: Reviewed. GENERAL: The patient is in no acute distress. PULMONARY: Decreased breath sounds. CARDIOVASCULAR: Regular rate. No S3 or S4. ABDOMEN: Soft, nontender, and nondistended. EXTREMITIES: A 1+ edema. LABORATORY AND DIAGNOSTIC DATA: WBC of 7.1, hemoglobin 16, hematocrit 50, and platelet count of 198,000. CAT scan of the abdomen and pelvis shows atrophic pancreas and thickening of the rectosigmoid area. ASSESSMENT AND PLAN: 1. Gastrointestinal bleed noted. Currently, hemoglobin and hematocrit is stable. Continue to monitor this. CT did show evidence of proctitis and colitis. The patient did undergo a colonoscopy, results are pending. It was completed on 07/15/2017. 2. Colitis, noninfected. Continue to monitor as per GI team. 3. Acute kidney injury, creatinine currently has improved. administration. 4. failure, very mild at this time. Continue to monitor. Potentially reactive process. Thank you for the consultation. Damian Batres M.D. DR: CHLOE JOB#: [id number] CC:
[2017-07-16 11:32] LABS: BASOPHILS % (AUTO) 1.1 % (0.0-2.0); EOSINOPHILS % (AUTO) 4.7 % (0.0-3.0); LYMPHOCYTES % (AUTO) 35.8 % (20.0-45.0); MEAN CORPUSCULAR HEMOGLOBIN 30.6 PG (27.0-31.0); MEAN CORPUSCULAR HGB CONC 33.1 G/DL (32.0-36.0); MEAN CORPUSCULAR VOLUME 93 FL (80-99); MEAN PLATELET VOLUME 7.1 FL (6.5-10.1); MONOCYTES % (AUTO) 6.9 % (1.0-10.0); NEUTROPHILS % (AUTO) 51.5 % (45.0-75.0); PLATELET COUNT 179 K/UL (150-450); RED BLOOD COUNT 4.83 M/UL (4.70-6.10); RED CELL DISTRIBUTION WIDTH 12.4 % (11.6-14.8)
[2017-07-16 11:56] LABS: ALANINE AMINOTRANSFERASE 9 U/L (3-41); ALBUMIN/GLOBULIN RATIO 0.8 (1.0-2.7); ANION GAP 9 (5-15); ASPARTATE AMINO TRANSFERASE 16 U/L (5-40); CALCIUM 9.3 mg/dL (8.6-10.2); CARBON DIOXIDE 28 mEQ/L (20-30); CHLORIDE 102 mEQ/L (98-107); CHOLESTEROL 154 mg/dL (< 200); CHOLESTEROL/HDL RATIO 3.3 (3.3-4.4); CREATININE 1.3 mg/dL (0.7-1.2); HEMOLYSIS 7; LDL CHOLESTEROL (CALC.) 85 mg/dL (60-99); SODIUM 139 mEQ/L (135-145); TOTAL PROTEIN 6.8 g/dL (6.6-8.7)
[2017-07-16 11:57] LABS: CRP QUANT 3.7 mg/dL (< 0.5); MAGNESIUM 1.4 mg/dL (1.7-2.5); PHOSPHORUS 3.2 mg/dL (2.5-4.8); URIC ACID 7.6 mg/dL (3.0-7.5)
[2017-07-16 12:12] LABS: THYROID STIMULATING HORMONE 0.221 uIU/mL (0.300-4.500)
[2017-07-16] MEDS: Mesalamine Enema 4gm/60ml RECTAL SCH ×2 (13:01→20:47)
--- NOTE | 2017-07-16 13:58 | General Progress Note ---
Assessment/Plan Problem List: (1) Colitis ICD Codes: K52.9 - Noninfective gastroenteritis and colitis, unspecified SNOMED: 08883342 (2) Rectal bleeding ICD Codes: K62.5 - Hemorrhage of anus and rectum SNOMED: 56384608 (3) CKD (chronic kidney disease) ICD Codes: N18.9 - Chronic kidney disease, unspecified SNOMED: 825070868 Qualifiers: Qualified Codes: N18.9 - Chronic kidney disease, unspecified Status: progressing Assessment/Plan afebrile vitals stable gi bleeding none today psych patient moniter for bleeding Subjective ROS Limited/Unobtainable: Yes Constitutional: Reports: no symptoms Allergies: Coded Allergies: No Known Allergies (Unverified , 03/19/17) Objective Last 24 Hour Vital Signs Date Time Temp Pulse Resp B/P (MAP) Pulse Ox O2 Delivery O2 Flow Rate FiO2 07/16/17 11:26 98.2 91 20 122/81 98 Room Air 07/16/17 08:09 98.0 94 20 98/58 98 Room Air 07/16/17 04:00 98.1 102 118/79 95 Room Air 07/16/17 00:00 97.0 82 20 116/64 97 Room Air 07/15/17 20:00 97.2 85 20 125/72 94 Room Air 07/15/17 15:56 97.0 79 19 121/71 Room Air Intake and Output 07/16/17 07/17/17 19:00 07:00 Intake Total 840 ml Output Total 400 ml Balance 440 ml Intake Oral 840 ml Output Urine Total 400 ml # Bowel Movements 3 Laboratory Tests 07/16/17 11:25: White Blood Count 6.0, Red Blood Count 4.83, Hemoglobin 14.8, Hematocrit 44.7, Mean Corpuscular Volume 93, Mean Corpuscular Hemoglobin 30.6, Mean Corpuscular Hemoglobin Concent 33.1, Red Cell Distribution Width 12.4, Platelet Count 179, Mean Platelet Volume 7.1, Neutrophils (%) (Auto) 51.5, Lymphocytes (%) (Auto) 35.8, Monocytes (%) (Auto) 6.9, Eosinophils (%) (Auto) 4.7H, Basophils (%) (Auto ) 1.1, Sodium Level 139, Potassium Level 4.0, Chloride Level 102, Carbon Dioxide Level 28, Anion Gap 9, Blood Urea Nitrogen 19, Creatinine 1.3H, Estimat Glomerular Filtration Rate , Glucose Level 113H, Hemoglobin A1c 7.0H, Uric Acid 7.6H, Calcium Level 9.3, Phosphorus Level 3.2, Magnesium Level 1.4L, Total Bilirubin 0.4, Gamma Glutamyl Transpeptidase 68H, Aspartate Amino Transf (AST/ SGOT) 16, Alanine Aminotransferase (ALT/SGPT) 9, Alkaline Phosphatase 126, Total Creatine Kinase 49, C-Reactive Protein, Quantitative 3.7H, Pro-B-Type Natriuretic Peptide 170, Total Protein 6.8, Albumin 3.2L, Globulin 3.6, Albumin/ Globulin Ratio 0.8L, Triglycerides Level 115, Cholesterol Level 154, LDL Cholesterol 85, HDL Cholesterol 46, Cholesterol/HDL Ratio 3.3, Vitamin B12 Level 1369H, Thyroid Stimulating Hormone (TSH) 0.221L Height (Feet): 5 Height (Inches): 5.00 Weight (Pounds): 160 EENT: PERRL/EOMI Neck: supple Cardiovascular: normal rate Respiratory/Chest: lungs clear Gurmeet Elizabeth MD Jul 16, 2017 13:58
--- NOTE | 2017-07-16 14:03 | General Progress Note ---
Assessment/Plan Status: stable Status Narrative mag Low Assessment/Plan - Cr 1.4 likely dehydration now 1.3 - Hematochezia - abnormal CT - DM - OBS - Anemia stable H&H Plan: Mag supplement Per GI Hydrate Monitor renal parameters and lytes and H&H Per orders Subjective ROS Limited/Unobtainable: No Constitutional: Reports: malaise Allergies: Coded Allergies: No Known Allergies (Unverified , 03/19/17) Objective Last 24 Hour Vital Signs Date Time Temp Pulse Resp B/P (MAP) Pulse Ox O2 Delivery O2 Flow Rate FiO2 07/16/17 11:26 98.2 91 20 122/81 98 Room Air 07/16/17 08:09 98.0 94 20 98/58 98 Room Air 07/16/17 04:00 98.1 102 118/79 95 Room Air 07/16/17 00:00 97.0 82 20 116/64 97 Room Air 07/15/17 20:00 97.2 85 20 125/72 94 Room Air 07/15/17 15:56 97.0 79 19 121/71 Room Air Intake and Output 07/16/17 07/17/17 19:00 07:00 Intake Total 840 ml Output Total 400 ml Balance 440 ml Intake Oral 840 ml Output Urine Total 400 ml # Bowel Movements 3 Laboratory Tests 07/16/17 11:25: White Blood Count 6.0, Red Blood Count 4.83, Hemoglobin 14.8, Hematocrit 44.7, Mean Corpuscular Volume 93, Mean Corpuscular Hemoglobin 30.6, Mean Corpuscular Hemoglobin Concent 33.1, Red Cell Distribution Width 12.4, Platelet Count 179, Mean Platelet Volume 7.1, Neutrophils (%) (Auto) 51.5, Lymphocytes (%) (Auto) 35.8, Monocytes (%) (Auto) 6.9, Eosinophils (%) (Auto) 4.7H, Basophils (%) (Auto ) 1.1, Sodium Level 139, Potassium Level 4.0, Chloride Level 102, Carbon Dioxide Level 28, Anion Gap 9, Blood Urea Nitrogen 19, Creatinine 1.3H, Estimat Glomerular Filtration Rate , Glucose Level 113H, Hemoglobin A1c 7.0H, Uric Acid 7.6H, Calcium Level 9.3, Phosphorus Level 3.2, Magnesium Level 1.4L, Total Bilirubin 0.4, Gamma Glutamyl Transpeptidase 68H, Aspartate Amino Transf (AST/ SGOT) 16, Alanine Aminotransferase (ALT/SGPT) 9, Alkaline Phosphatase 126, Total Creatine Kinase 49, C-Reactive Protein, Quantitative 3.7H, Pro-B-Type Natriuretic Peptide 170, Total Protein 6.8, Albumin 3.2L, Globulin 3.6, Albumin/ Globulin Ratio 0.8L, Triglycerides Level 115, Cholesterol Level 154, LDL Cholesterol 85, HDL Cholesterol 46, Cholesterol/HDL Ratio 3.3, Vitamin B12 Level 1369H, Thyroid Stimulating Hormone (TSH) 0.221L Height (Feet): 5 Height (Inches): 5.00 Weight (Pounds): 160 General Appearance: no apparent distress Objective no change MARIA ESTHER CARIAS Jul 16, 2017 14:03
[2017-07-16 15:49] VITALS: BP 123/73
--- NOTE | 2017-07-16 17:44 | General Progress Note ---
Assessment/Plan Assessment/Plan ASSESSMENT AND PLAN: 1. Gastrointestinal bleed noted. Currently, hemoglobin and hematocrit is stable. ---> Continue to monitor this. --> CT did show evidence of proctitis and colitis. --> colo showed Proctitis from 5-15 cm, possible sigmoid inflammation, biopsies obtained 3. Acute kidney injury, creatinine currently has improved. Subjective Constitutional: Reports: no symptoms HEENT: Reports: no symptoms Cardiovascular: Reports: no symptoms Respiratory: Reports: no symptoms Gastrointestinal/Abdominal: Reports: no symptoms Genitourinary: Reports: no symptoms Neurologic/Psychiatric: Reports: no symptoms Endocrine: Reports: no symptoms Hematologic/Lymphatic: Reports: no symptoms Allergies: Coded Allergies: No Known Allergies (Unverified , 03/19/17) Subjective no distress, bm with no blood Objective Last 24 Hour Vital Signs Date Time Temp Pulse Resp B/P (MAP) Pulse Ox O2 Delivery O2 Flow Rate FiO2 07/16/17 15:49 97.6 80 20 123/73 95 Room Air 07/16/17 11:26 98.2 91 20 122/81 98 Room Air 07/16/17 08:09 98.0 94 20 98/58 98 Room Air 07/16/17 04:00 98.1 102 118/79 95 Room Air 07/16/17 00:00 97.0 82 20 116/64 97 Room Air 07/15/17 20:00 97.2 85 20 125/72 94 Room Air Intake and Output 07/16/17 07/17/17 19:00 07:00 Intake Total 840 ml Output Total 400 ml Balance 440 ml Intake Oral 840 ml Output Urine Total 400 ml # Bowel Movements 3 Laboratory Tests 07/16/17 11:25: White Blood Count 6.0, Red Blood Count 4.83, Hemoglobin 14.8, Hematocrit 44.7, Mean Corpuscular Volume 93, Mean Corpuscular Hemoglobin 30.6, Mean Corpuscular Hemoglobin Concent 33.1, Red Cell Distribution Width 12.4, Platelet Count 179, Mean Platelet Volume 7.1, Neutrophils (%) (Auto) 51.5, Lymphocytes (%) (Auto) 35.8, Monocytes (%) (Auto) 6.9, Eosinophils (%) (Auto) 4.7H, Basophils (%) (Auto ) 1.1, Sodium Level 139, Potassium Level 4.0, Chloride Level 102, Carbon Dioxide Level 28, Anion Gap 9, Blood Urea Nitrogen 19, Creatinine 1.3H, Estimat Glomerular Filtration Rate , Glucose Level 113H, Hemoglobin A1c 7.0H, Uric Acid 7.6H, Calcium Level 9.3, Phosphorus Level 3.2, Magnesium Level 1.4L, Total Bilirubin 0.4, Gamma Glutamyl Transpeptidase 68H, Aspartate Amino Transf (AST/ SGOT) 16, Alanine Aminotransferase (ALT/SGPT) 9, Alkaline Phosphatase 126, Total Creatine Kinase 49, C-Reactive Protein, Quantitative 3.7H, Pro-B-Type Natriuretic Peptide 170, Total Protein 6.8, Albumin 3.2L, Globulin 3.6, Albumin/ Globulin Ratio 0.8L, Triglycerides Level 115, Cholesterol Level 154, LDL Cholesterol 85, HDL Cholesterol 46, Cholesterol/HDL Ratio 3.3, Vitamin B12 Level 1369H, Thyroid Stimulating Hormone (TSH) 0.221L Height (Feet): 5 Height (Inches): 5.00 Weight (Pounds): 160 General Appearance: no apparent distress EENT: normal ENT inspection Neck: normal alignment Cardiovascular: normal peripheral pulses Abdomen: no organomegaly 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
[2017-07-16 20:08] VITALS: BP 128/71
[2017-07-16] MEDS: TraZODone HCl 25 mg tablet ORAL SCH (20:46)
[2017-07-16] MEDS: Donepezil 10mg tab ORAL SCH (20:46)
--- NOTE | 2017-07-16 21:30 | General Progress Note ---
Assessment/Plan Assessment/Plan Assessment - Proctitis from 5-15 cm, possible sigmoid inflammation, multiple biopsies obtained - DM - OBS Recommendations - PO diet - f/u path - mesalamine enemas - Monitor labs Subjective Allergies: Coded Allergies: No Known Allergies (Unverified , 03/19/17) Subjective (+) BM no bleeding Objective Last 24 Hour Vital Signs Date Time Temp Pulse Resp B/P (MAP) Pulse Ox O2 Delivery O2 Flow Rate FiO2 07/16/17 20:08 97.0 82 17 128/71 93 Room Air 07/16/17 15:49 97.6 80 20 123/73 95 Room Air 07/16/17 11:26 98.2 91 20 122/81 98 Room Air 07/16/17 08:09 98.0 94 20 98/58 98 Room Air 07/16/17 04:00 98.1 102 118/79 95 Room Air 07/16/17 00:00 97.0 82 20 116/64 97 Room Air Intake and Output 07/16/17 07/17/17 19:00 07:00 Intake Total 1200 ml Output Total 400 ml Balance 800 ml Intake Oral 1200 ml Output Urine Total 400 ml # Voids 3 # Bowel Movements 3 Laboratory Tests 07/16/17 11:25: White Blood Count 6.0, Red Blood Count 4.83, Hemoglobin 14.8, Hematocrit 44.7, Mean Corpuscular Volume 93, Mean Corpuscular Hemoglobin 30.6, Mean Corpuscular Hemoglobin Concent 33.1, Red Cell Distribution Width 12.4, Platelet Count 179, Mean Platelet Volume 7.1, Neutrophils (%) (Auto) 51.5, Lymphocytes (%) (Auto) 35.8, Monocytes (%) (Auto) 6.9, Eosinophils (%) (Auto) 4.7H, Basophils (%) (Auto ) 1.1, Sodium Level 139, Potassium Level 4.0, Chloride Level 102, Carbon Dioxide Level 28, Anion Gap 9, Blood Urea Nitrogen 19, Creatinine 1.3H, Estimat Glomerular Filtration Rate , Glucose Level 113H, Hemoglobin A1c 7.0H, Uric Acid 7.6H, Calcium Level 9.3, Phosphorus Level 3.2, Magnesium Level 1.4L, Total Bilirubin 0.4, Gamma Glutamyl Transpeptidase 68H, Aspartate Amino Transf (AST/ SGOT) 16, Alanine Aminotransferase (ALT/SGPT) 9, Alkaline Phosphatase 126, Total Creatine Kinase 49, C-Reactive Protein, Quantitative 3.7H, Pro-B-Type Natriuretic Peptide 170, Total Protein 6.8, Albumin 3.2L, Globulin 3.6, Albumin/ Globulin Ratio 0.8L, Triglycerides Level 115, Cholesterol Level 154, LDL Cholesterol 85, HDL Cholesterol 46, Cholesterol/HDL Ratio 3.3, Vitamin B12 Level 1369H, Thyroid Stimulating Hormone (TSH) 0.221L Height (Feet): 5 Height (Inches): 5.00 Weight (Pounds): 160 Objective NCAT supple CTA RRR abd soft ND NT no edema non focal, confused BOUCHRA BLUE Jul 16, 2017 21:30
[2017-07-17 00:31] VITALS: BP 125/80
[2017-07-17 04:00] VITALS: BP 113/65
[2017-07-17 07:50] VITALS: BP 104/56
[2017-07-17] MEDS: Mesalamine Enema 4gm/60ml RECTAL SCH ×2 (08:38→21:43)
[2017-07-17] MEDS: Memantine 10mg tab ORAL SCH ×2 (08:38→17:15)
--- NOTE | 2017-07-17 10:22 | General Progress Note ---
Assessment/Plan Assessment/Plan Assessment - Proctitis from 5-15 cm, possible sigmoid inflammation, multiple biopsies obtained - DM - OBS Recommendations - PO diet - f/u patholy results - mesalamine enemas -> add po mesalamine - Monitor labs Subjective Allergies: Coded Allergies: No Known Allergies (Unverified , 03/19/17) Subjective (+) BM tolerating PO d/w sitter at bedside no GI complaints patient refusing Rowasa Enemas path still pending Objective Last 24 Hour Vital Signs Date Time Temp Pulse Resp B/P (MAP) Pulse Ox O2 Delivery O2 Flow Rate FiO2 07/17/17 07:50 97.2 83 19 104/56 93 Room Air 07/17/17 04:00 97.2 85 17 113/65 96 Room Air 07/17/17 00:31 97.9 80 17 125/80 94 Room Air 07/16/17 20:08 97.0 82 17 128/71 93 Room Air 07/16/17 15:49 97.6 80 20 123/73 95 Room Air 07/16/17 11:26 98.2 91 20 122/81 98 Room Air Intake and Output 07/17/17 07/18/17 19:00 07:00 # Bowel Movements 1 Laboratory Tests 07/16/17 11:25: White Blood Count 6.0, Red Blood Count 4.83, Hemoglobin 14.8, Hematocrit 44.7, Mean Corpuscular Volume 93, Mean Corpuscular Hemoglobin 30.6, Mean Corpuscular Hemoglobin Concent 33.1, Red Cell Distribution Width 12.4, Platelet Count 179, Mean Platelet Volume 7.1, Neutrophils (%) (Auto) 51.5, Lymphocytes (%) (Auto) 35.8, Monocytes (%) (Auto) 6.9, Eosinophils (%) (Auto) 4.7H, Basophils (%) (Auto ) 1.1, Sodium Level 139, Potassium Level 4.0, Chloride Level 102, Carbon Dioxide Level 28, Anion Gap 9, Blood Urea Nitrogen 19, Creatinine 1.3H, Estimat Glomerular Filtration Rate , Glucose Level 113H, Hemoglobin A1c 7.0H, Uric Acid 7.6H, Calcium Level 9.3, Phosphorus Level 3.2, Magnesium Level 1.4L, Total Bilirubin 0.4, Gamma Glutamyl Transpeptidase 68H, Aspartate Amino Transf (AST/ SGOT) 16, Alanine Aminotransferase (ALT/SGPT) 9, Alkaline Phosphatase 126, Total Creatine Kinase 49, C-Reactive Protein, Quantitative 3.7H, Pro-B-Type Natriuretic Peptide 170, Total Protein 6.8, Albumin 3.2L, Globulin 3.6, Albumin/ Globulin Ratio 0.8L, Triglycerides Level 115, Cholesterol Level 154, LDL Cholesterol 85, HDL Cholesterol 46, Cholesterol/HDL Ratio 3.3, Vitamin B12 Level 1369H, Thyroid Stimulating Hormone (TSH) 0.221L Height (Feet): 5 Height (Inches): 5.00 Weight (Pounds): 160 Objective NCAT supple CTA RRR abd soft ND NT no edema non focal, confused BOUCHRA BLUE Jul 17, 2017 10:22
[2017-07-17 12:00] VITALS: BP 126/92
--- NOTE | 2017-07-17 15:47 | General Progress Note ---
Assessment/Plan Status: stable Assessment/Plan - Cr 1.4 likely dehydration now 1.3 - Hematochezia - abnormal CT - DM - OBS - Anemia stable H&H Plan: Per GI Hydrate Monitor renal parameters and lytes and H&H Per orders Subjective ROS Limited/Unobtainable: No Constitutional: Reports: malaise Allergies: Coded Allergies: No Known Allergies (Unverified , 03/19/17) Objective Last 24 Hour Vital Signs Date Time Temp Pulse Resp B/P (MAP) Pulse Ox O2 Delivery O2 Flow Rate FiO2 07/17/17 12:00 96.3 82 19 126/92 95 Room Air 07/17/17 07:50 97.2 83 19 104/56 93 Room Air 07/17/17 04:00 97.2 85 17 113/65 96 Room Air 07/17/17 00:31 97.9 80 17 125/80 94 Room Air 07/16/17 20:08 97.0 82 17 128/71 93 Room Air 07/16/17 15:49 97.6 80 20 123/73 95 Room Air Intake and Output 07/17/17 07/18/17 19:00 07:00 # Bowel Movements 1 Height (Feet): 5 Height (Inches): 5.00 Weight (Pounds): 160 General Appearance: no apparent distress Objective no change MARIA ESTHER CARIAS Jul 17, 2017 15:47
[2017-07-17 16:23] VITALS: BP 134/70
[2017-07-17 20:05] VITALS: BP 104/66
[2017-07-17] MEDS: Donepezil 10mg tab ORAL SCH (21:39)
[2017-07-17] MEDS: TraZODone HCl 25 mg tablet ORAL SCH (21:40)
--- NOTE | 2017-07-17 21:44 | General Progress Note ---
Assessment/Plan Problem List: (1) Colitis ICD Codes: K52.9 - Noninfective gastroenteritis and colitis, unspecified SNOMED: 28199080 (2) Rectal bleeding ICD Codes: K62.5 - Hemorrhage of anus and rectum SNOMED: 89795943 (3) CKD (chronic kidney disease) ICD Codes: N18.9 - Chronic kidney disease, unspecified SNOMED: 221134158 Qualifiers: Qualified Codes: N18.9 - Chronic kidney disease, unspecified Status: progressing Assessment/Plan afebrile vitals stable gi bleeding no gi bleeding dc in am to snf h/h stable Subjective ROS Limited/Unobtainable: Yes Allergies: Coded Allergies: No Known Allergies (Unverified , 03/19/17) Objective Last 24 Hour Vital Signs Date Time Temp Pulse Resp B/P (MAP) Pulse Ox O2 Delivery O2 Flow Rate FiO2 07/17/17 20:05 97.4 74 18 104/66 95 Room Air 07/17/17 16:23 97.3 78 20 134/70 95 Room Air 07/17/17 12:00 96.3 82 19 126/92 95 Room Air 07/17/17 07:50 97.2 83 19 104/56 93 Room Air 07/17/17 04:00 97.2 85 17 113/65 96 Room Air 07/17/17 00:31 97.9 80 17 125/80 94 Room Air Intake and Output 07/17/17 07/18/17 19:00 07:00 Intake Total 400 ml Output Total 450 ml 50 ml Balance -50 ml -50 ml Intake Oral 400 ml Output Urine Total 450 ml 50 ml # Bowel Movements 2 1 Height (Feet): 5 Height (Inches): 5.00 Weight (Pounds): 160 EENT: PERRL/EOMI Respiratory/Chest: lungs clear Abdomen: soft Gurmeet Elizabeth MD Jul 17, 2017 21:44
[2017-07-18 00:02] VITALS: BP 110/60
[2017-07-18 04:08] VITALS: BP 111/66
[2017-07-18 08:00] VITALS: BP 96/62
--- NOTE | 2017-07-18 08:42 | General Progress Note ---
Assessment/Plan Assessment/Plan ASSESSMENT AND PLAN: 1. Gastrointestinal bleed noted. Currently, hemoglobin and hematocrit is stable. ---> Remains stable, no need for iron. --> CT did show evidence of proctitis and colitis. --> colo showed Proctitis from 5-15 cm, possible sigmoid inflammation, biopsies obtained 3. Acute kidney injury, creatinine currently has improved. Subjective Date patient seen: Jul 17, 2017 Constitutional: Reports: no symptoms HEENT: Reports: no symptoms Cardiovascular: Reports: no symptoms Respiratory: Reports: no symptoms Gastrointestinal/Abdominal: Reports: no symptoms Genitourinary: Reports: no symptoms Neurologic/Psychiatric: Reports: no symptoms Endocrine: Reports: no symptoms Hematologic/Lymphatic: Reports: no symptoms Allergies: Coded Allergies: No Known Allergies (Unverified , 03/19/17) Subjective no rectal bleeding, afebrile Objective Last 24 Hour Vital Signs Date Time Temp Pulse Resp B/P (MAP) Pulse Ox O2 Delivery O2 Flow Rate FiO2 07/18/17 08:00 97.0 91 17 96/62 96 Room Air 07/18/17 04:08 97.2 68 16 111/66 98 Room Air 07/18/17 00:02 97.9 70 18 110/60 96 07/17/17 20:05 97.4 74 18 104/66 95 Room Air 07/17/17 16:23 97.3 78 20 134/70 95 Room Air 07/17/17 12:00 96.3 82 19 126/92 95 Room Air Height (Feet): 5 Height (Inches): 5.00 Weight (Pounds): 160 General Appearance: no apparent distress EENT: normal ENT inspection Neck: normal alignment Cardiovascular: normal peripheral pulses, normal rate Respiratory/Chest: chest wall non-tender Abdomen: no organomegaly Skin: normal pigmentation Damian Batres Jul 18, 2017 08:42
[2017-07-18] MEDS: Memantine 10mg tab ORAL SCH (09:35)
[2017-07-18] MEDS: Mesalamine Enema 4gm/60ml RECTAL SCH (09:35)
--- NOTE | 2017-07-18 09:53 | General Progress Note ---
Assessment/Plan Status: stable Assessment/Plan - Cr 1.4 likely dehydration now 1.3 - Hematochezia - abnormal CT - DM - OBS - Anemia stable H&H Plan: no labs today Per GI ? DC Monitor renal parameters and lytes and H&H Per orders Subjective ROS Limited/Unobtainable: No Allergies: Coded Allergies: No Known Allergies (Unverified , 03/19/17) Objective Last 24 Hour Vital Signs Date Time Temp Pulse Resp B/P (MAP) Pulse Ox O2 Delivery O2 Flow Rate FiO2 07/18/17 08:00 97.0 91 17 96/62 96 Room Air 07/18/17 04:08 97.2 68 16 111/66 98 Room Air 07/18/17 00:02 97.9 70 18 110/60 96 07/17/17 20:05 97.4 74 18 104/66 95 Room Air 07/17/17 16:23 97.3 78 20 134/70 95 Room Air 07/17/17 12:00 96.3 82 19 126/92 95 Room Air Height (Feet): 5 Height (Inches): 5.00 Weight (Pounds): 160 General Appearance: no apparent distress Objective no change MARIA ESTHER CARIAS Jul 18, 2017 09:53
[2017-07-18 12:00] VITALS: BP 111/69
--- NOTE | 2017-07-18 13:07 | General Progress Note ---
Assessment/Plan Assessment/Plan ASSESSMENT AND PLAN: 1. Gastrointestinal bleed noted. Currently, hemoglobin and hematocrit is stable. ---> Remains stable, no need for iron. --> no rectal bleeding --> CT did show evidence of proctitis and colitis. --> colo showed Proctitis from 5-15 cm, possible sigmoid inflammation, biopsies obtained 3. Acute kidney injury, creatinine currently has improved. Subjective Constitutional: Reports: no symptoms HEENT: Reports: no symptoms Cardiovascular: Reports: no symptoms Respiratory: Reports: no symptoms Gastrointestinal/Abdominal: Reports: no symptoms Genitourinary: Reports: no symptoms Neurologic/Psychiatric: Reports: no symptoms Endocrine: Reports: no symptoms Hematologic/Lymphatic: Reports: no symptoms Allergies: Coded Allergies: No Known Allergies (Unverified , 03/19/17) Subjective no changes, no labs, dc planned for today Objective Last 24 Hour Vital Signs Date Time Temp Pulse Resp B/P (MAP) Pulse Ox O2 Delivery O2 Flow Rate FiO2 07/18/17 12:00 97.2 75 17 111/69 96 Room Air 07/18/17 08:00 97.0 91 17 96/62 96 Room Air 07/18/17 04:08 97.2 68 16 111/66 98 Room Air 07/18/17 00:02 97.9 70 18 110/60 96 07/17/17 20:05 97.4 74 18 104/66 95 Room Air 07/17/17 16:23 97.3 78 20 134/70 95 Room Air Intake and Output 07/18/17 07/19/17 19:00 07:00 Intake Total 250 ml Output Total 550 ml Balance -300 ml Intake Oral 250 ml Output Urine Total 550 ml Height (Feet): 5 Height (Inches): 5.00 Weight (Pounds): 160 General Appearance: no apparent distress EENT: normal ENT inspection Neck: normal inspection Respiratory/Chest: no respiratory distress Edema: no edema noted Pedal (L), no edema noted Pedal (R) Neurologic: embalmer 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
--- NOTE | 2017-07-18 15:26 | General Progress Note ---
Assessment/Plan Assessment/Plan Assessment - Proctitis from 5-15 cm, possible sigmoid inflammation, multiple biopsies obtained - path c/w distal colitis - DM - OBS Recommendations - PO diet - po mesalamine - Monitor labs - d/c planning Subjective Allergies: Coded Allergies: No Known Allergies (Unverified , 03/19/17) Subjective (+) BM tolerating PO d/w sitter at bedside no GI complaints path - proctitis Objective Last 24 Hour Vital Signs Date Time Temp Pulse Resp B/P (MAP) Pulse Ox O2 Delivery O2 Flow Rate FiO2 07/18/17 12:00 97.2 75 17 111/69 96 Room Air 07/18/17 08:00 97.0 91 17 96/62 96 Room Air 07/18/17 04:08 97.2 68 16 111/66 98 Room Air 07/18/17 00:02 97.9 70 18 110/60 96 07/17/17 20:05 97.4 74 18 104/66 95 Room Air 07/17/17 16:23 97.3 78 20 134/70 95 Room Air Intake and Output 07/18/17 07/19/17 19:00 07:00 Intake Total 370 ml Output Total 550 ml Balance -180 ml Intake Oral 370 ml Output Urine Total 550 ml Height (Feet): 5 Height (Inches): 5.00 Weight (Pounds): 160 Objective NCAT supple CTA RRR abd soft ND NT no edema non focal, confused BOUCHRA BLUE Jul 18, 2017 15:26
[2017-07-21] MEDS ORDERED: ROWASA4 GM/60 ML RECTAL (08:57)
[2017-07-21] MEDS ORDERED: ASACOL HD800 MG ORAL (08:57)
--- NOTE | 2017-07-21 09:02 | Discharge Summary ---
Discharge Summary Hospital Course Date of Admission Jul 14, 2017 at 11:52 Date of Discharge Jul 18, 2017 at 16:07 Admitting Diagnosis Rectal bleeding HPI Yoshi Middleton is a 87 year old male who was admitted on Jul 14, 2017 at 11:52 for Rectal Bleeding Hospital Course dc summary #[id number] Discharge Medications New Medications: Mesalamine (Asacol Hd) 800 Mg Tablet.dr 1600 MG ORAL THREE TIMES A DAY for 90 Days, TAB Do not break outer coating Mesalamine (Mesalamine) 4 Gm/60 Ml Enema 4 GM RECTAL Q12HR, #30 EA Continued Medications: Acetaminophen (Tylenol) 325 Mg Tablet 650 MG ORAL Q6H PRN for Prn Pain/Headache/Temp > 101, #30 TAB 0 Refills Aspirin* (Aspir 81*) 81 Mg Tablet.dr 81 MG ORAL DAILY, TAB Bisacodyl* (Dulcolax*) 5 Mg Tablet.dr 10 MG RECTAL DAILY PRN for Constipation, #10 TAB 0 Refills Docusate Sodium* (Colace*) 100 Mg Capsule 100 MG ORAL DAILY, CAP Donepezil Hcl* (Donepezil Hcl*) 10 Mg Tab.rapdis 10 MG ORAL BEDTIME, TAB Ferrous Sulfate* (Ferrous Sulfate*) 325 Mg Tablet 325 MG ORAL BID, #90 TAB 0 Refills Magnesium Hydroxide* (Milk Of Magnesia*) 400 Mg/5 Ml Oral.susp 30 ML ORAL DAILY PRN for Constipation, ML Memantine Hcl* (Namenda*) 5 Mg Tablet 5 MG ORAL TWICE A DAY, TAB Na Phos,M-B/Na Phos,Di-Ba* (Fleet Enema*) 133 Ml Enema 133 ML RECTAL DAILY PRN for Constipation, ML 0 Refills Trazodone Hcl* (Desyrel*) 50 Mg Tablet 25 MG ORAL BEDTIME, TAB Discharge Condition Upon Discharge: stable Discharge Disposition Patient was discharged to SNF/Subacute Facility(03) Discharge Diagnoses: Discharge Instructions Discharge Instructions Special Instructions I have been assigned to complete a D/C Summary on this account. I was not involved in the patient management Jane Herrera NP ([facility]) Jul 21, 2017 09:02
--- NOTE | 2017-07-22 00:15 | Discharge Summary 2 SIG ---
DATE OF ADMISSION: 07/14/2017 DATE OF DISCHARGE: 07/18/2017 REASON FOR ADMISSION: This is an 87-year-old male with history of hypertension, diabetes, Alzheimer dementia, anemia, and chronic renal insufficiency, was [facility] for evaluation for two days of rectal bleeding. Upon evaluation in the emergency department, noted that hemoglobin and hematocrit were stable. Lipase elevated at 85. CT of the abdomen and pelvis revealed no evidence of pancreatitis, but showed evidence of colitis and proctitis. CT of the abdomen and pelvis was done without IV contrast because creatinine was 1.4. Again findings were most likely representing colitis/pancreatitis/proctitis. GI consult was requested. The patient subsequently undergone colonoscopy with biopsy on 07/15/2017, which found proctitis with mild patchy sigmoid inflammation. Biopsy revealed no active or chronic colitis. No hyperplasia. No malignancy. The patient was started on Rowasa enema q.12 h. and Asacol oral t.i.d. Nephrology followed. Per Nephrology, the patient initially have acute kidney injury likely due to the dehydration. With IV hydration, creatinine initially improved to 1.1 and then up to 1.3 again baseline for this patient. Hemoglobin and hematocrit remained in the baseline and stable. Per Hematology, hemoglobin and hematocrit remained stable. No need for the iron. No evidence of active rectal bleeding. The patient was cleared for discharge. DISCHARGE DIAGNOSES: 1. Rectal bleeding. 2. Proctitis. 3. Status post colonoscopy with biopsy. 4. Acute kidney injury on chronic renal insufficiency likely due to dehydration. 5. Dehydration, resolved. 6. Alzheimer dementia. DISCHARGE MEDICATIONS: See medication reconciliation list. DISCHARGE INSTRUCTIONS: [facility]charged to jail facility. FOLLOWUP: Follow up with medical doctor at the facility. ADMITTING DIAGNOSES: 1. Rectal bleeding. 2. Alzheimer dementia. 3. Acute kidney injury. Gurmeet Elizabeth M.D. I have been assigned to dictate discharge summary on this account and I was not involved in the patient's management. Jane Morannyu [facility] hospitalCharles NMendezPMendez DR: Colette JOB#: [id number] CC:
== END 2017-07-18 16:07 | DRG 253 ==
LOC: EDBD 09:10 → EMR 09:47 → EDBEDREQ 10:46 → 4E 11:52
PROC: 0DBE8ZX Excision of Large Intestine, Via Natural or Artificial Opening Endoscopic, Diagnostic (ICD-10-PCS; principal; 2017-07-15 07:37)
DX: K62.5 Hemorrhage of anus and rectum (principal); N17.9 Acute kidney failure, unspecified; E11.22 Type 2 diabetes mellitus with diabetic chronic kidney disease; G30.9 Alzheimer's disease, unspecified; E86.0 Dehydration; F02.80 Dementia in other diseases classified elsewhere, unspecified severity, without behavioral disturbance, psychotic disturbance, mood disturbance, and anxiety; D64.9 Anemia, unspecified; K62.89 Other specified diseases of anus and rectum; I12.9 Hypertensive chronic kidney disease with stage 1 through stage 4 chronic kidney disease, or unspecified chronic kidney disease; N18.9 Chronic kidney disease, unspecified; K52.9 Noninfective gastroenteritis and colitis, unspecified
CPT/HCPCS: 36415; 74176; 80048; 80053; 80061; 81003; 82270; 82550; 82607; 82962; 82977; 83036; 83690; 83735; 83880; 84100; 84443; 84550; 85025; 85610; 85730; 86140; 86850; 86900; 86901; 87045; 87081; 94003; 94150; 99285; J2250; J8499

== ENCOUNTER 2018-02-16 11:08 | Inpatient (IN) | payer MEDICAID ==
[~2018-02-16] VITALS: Ht 167.6 cm; Wt 71.2 kg
[~2018-02-16 11:08] MED LIST changes: +ASACOL HD800 MG ORAL; +ROWASA4 GM/60 ML RECTAL; +TRAZODONE HCL50 MG ORAL
[2018-02-16] MEDS ORDERED: MELATONIN1 M2 PO (11:20)
[2018-02-16 11:49] LABS: BASOPHILS % (AUTO) 0.8 % (0.0-2.0); EOSINOPHILS % (AUTO) 4.4 % (0.0-3.0); HEMATOCRIT 43.7 % (42.0-52.0); HEMOGLOBIN 14.7 G/DL (14.2-18.0); LYMPHOCYTES % (AUTO) 22.2 % (20.0-45.0); MEAN CORPUSCULAR VOLUME 90 FL (80-99); MONOCYTES % (AUTO) 9.2 % (1.0-10.0); NEUTROPHILS % (AUTO) 63.4 % (45.0-75.0); PLATELET COUNT 153 K/UL (150-450); RED BLOOD COUNT 4.84 M/UL (4.70-6.10); RED CELL DISTRIBUTION WIDTH 11.3 % (11.6-14.8); WHITE BLOOD COUNT 7.9 K/UL (4.8-10.8)
[2018-02-16 11:50] VITALS: BP 131/66
[2018-02-16 12:03] LABS: ANION GAP 5 mmol/L (5-15); BLOOD UREA NITROGEN 24 mg/dL (7-18); CALCIUM 8.9 MG/DL (8.5-10.1); CARBON DIOXIDE 32 MMOL/L (21-32); CHLORIDE 96 MMOL/L (98-107); CREATININE 1.5 MG/DL (0.55-1.30); POTASSIUM 3.5 MMOL/L (3.5-5.1); SODIUM 133 MMOL/L (136-145)
[2018-02-16 12:17] LABS: ALANINE AMINOTRANSFERASE 21 U/L (12-78); ALBUMIN/GLOBULIN RATIO 0.7 (1.0-2.7); ALKALINE PHOSPHATASE 133 U/L (46-116); ASPARTATE AMINO TRANSFERASE 23 U/L (15-37); BILIRUBIN,TOTAL 0.8 MG/DL (0.2-1.0); CKMB 0.8 NG/ML (0.0-3.6); CREATINE KINASE 150 U/L (26-308); PHOSPHORUS 3.2 MG/DL (2.5-4.9)
[2018-02-16] MEDS ORDERED: Albuterol ud Inhalation HHN ONE (12:30)
[2018-02-16] MEDS ORDERED: Ipratropium 0.02% Inh Soln 2.5ml UD HHN ONE (12:30)
[2018-02-16] MEDS ORDERED: Albuterol/Ipratropium 3ml neb HHN ONE (12:30)
[2018-02-16 12:46] LABS: APPEARANCE,URINE CLEAR; BILIRUBIN, URINE NEGATIVE (NEGATIVE); COLOR,URINE YELLOW; GLUCOSE, URINE (UA) NEGATIVE (NEGATIVE); KETONES,URINE NEGATIVE (NEGATIVE); LEUKOCYTE ESTERASE ,URINE NEGATIVE (NEGATIVE); NITRITE,URINE NEGATIVE (NEGATIVE); PH,URINE 6 (4.5-8.0); PROTEIN,URINE 2+ (NEGATIVE); UROBILINOGEN,URINE NORMAL MG/DL (0.0-1.0)
[2018-02-16 13:33] VITALS: BP 130/68
--- NOTE | 2018-02-16 13:42 | Emergency Room Report ---
History of Present Illness General Chief Complaint: Dyspnea/Respdistress Source: Medical Record Present Illness HPI Patient is an 87-year-old male sent in by PMD for increased productive cough and difficulty with breathing. Patient had been sent in from shelter. Patient had prior history of dementia. History is markedly limited by patient' s mental status. Allergies: Coded Allergies: No Known Allergies (Unverified , 03/19/17) Patient History Past Medical History: see triage record Reviewed Nursing Documentation: PMH: Agreed; PSxH: Agreed Nursing Documentation-PMH Past Medical History Deferred: Pt Cognitively Impaired Hx Cardiac Problems: Yes - Hypomagnesia Hx Hypertension: Yes Hx Diabetes: Yes - DM II Hx Cancer: No Hx Gastrointestinal Problems: No - hemmorhage of anus and rectum, acute kidney failure, hypomagnesemia Hx Dialysis: No - ACUTE KIDNEY FAILURE Hx Neurological Problems: Yes - diffculty walking, muscle weakness Hx Cerebrovascular Accident: No - HIP FX Hx Dementia: Yes Hx Alzheimer's Disease: Yes Hx Weakness: Yes Review of Systems All Other Systems: limited - by mental status Physical Exam Vital Signs Date Time Temp Pulse Resp B/P (MAP) Pulse Ox O2 Delivery O2 Flow Rate FiO2 02/16/18 11:10 99.1 90 20 119/76 90 Room Air 99.1 02/16/18 12:34 21 Sp02 EP Interpretation: reviewed, normal General Appearance: alert, obese, Chronically Ill Head: atraumatic ENT: normal ENT inspection, hearing grossly normal Neck: normal inspection, no bony tend, limited range of motion Respiratory: normal inspection, no retraction, wheezing Cardiovascular #1: regular rate, rhythm, no edema Gastrointestinal: normal inspection, non tender, soft, no guarding, no hernia Genitourinary: no CVA tenderness Musculoskeletal: normal inspection, back normal, normal range of motion Neurologic: alert, responsive, speech normal, other - aphasic Psychiatric: normal inspection, judgement/insight normal, mood/affect normal Skin: normal inspection, normal color, no rash Medical Decision Making Diagnostic Impression: Primary Impression: CHF exacerbation Additional Impressions: Type 2 diabetes mellitus Dementia ER Course Patient was ever shortness of breath. Differential included but was not limited to anemia, pneumonia, pneumothorax, myocardial infarction, pericardial effusion, congestive heart failure, acidosis. Because of complexity of patient' s case laboratory testing and imaging studies were ordered. EKG interpreted by me showed normal sinus rhythm with a rate of [address] changes. The patient was given breathing treatment. Dr. Gurmeet Bowers was contacted for inpatient management due to primary care physician Labs Test 02/16/18 11:35 02/16/18 12:07 White Blood Count 7.9 K/UL (4.8-10.8) Red Blood Count 4.84 M/UL (4.70-6.10) Hemoglobin 14.7 G/DL (14.2-18.0) Hematocrit 43.7 % (42.0-52.0) Mean Corpuscular Volume 90 FL (80-99) Mean Corpuscular Hemoglobin 30.4 PG (27.0-31.0) Mean Corpuscular Hemoglobin Concent 33.6 G/DL (32.0-36.0) Red Cell Distribution Width 11.3 % (11.6-14.8) Platelet Count 153 K/UL (150-450) Mean Platelet Volume 7.1 FL (6.5-10.1) Neutrophils (%) (Auto) 63.4 % (45.0-75.0) Lymphocytes (%) (Auto) 22.2 % (20.0-45.0) Monocytes (%) (Auto) 9.2 % (1.0-10.0) Eosinophils (%) (Auto) 4.4 % (0.0-3.0) Basophils (%) (Auto) 0.8 % (0.0-2.0) Sodium Level 133 MMOL/L (136-145) Potassium Level 3.5 MMOL/L (3.5-5.1) Chloride Level 96 MMOL/L (98-107) Carbon Dioxide Level 32 MMOL/L (21-32) Anion Gap 5 mmol/L (5-15) Blood Urea Nitrogen 24 mg/dL (7-18) Creatinine 1.5 MG/DL (0.55-1.30) Estimat Glomerular Filtration Rate mL/min (>60) Glucose Level 227 MG/DL (74-106) Lactic Acid Level 1.70 mmol/L (0.66-2.22) Calcium Level 8.9 MG/DL (8.5-10.1) Phosphorus Level 3.2 MG/DL (2.5-4.9) Magnesium Level 1.5 MG/DL (1.8-2.4) Total Bilirubin 0.8 MG/DL (0.2-1.0) Aspartate Amino Transf (AST/SGOT) 23 U/L (15-37) Alanine Aminotransferase (ALT/SGPT) 21 U/L (12-78) Alkaline Phosphatase 133 U/L (46-116) Total Creatine Kinase 150 U/L (26-308) Creatine Kinase MB 0.8 NG/ML (0.0-3.6) Creatine Kinase MB Relative Index 0.5 Troponin I 0.012 ng/mL (0.000-0.056) Pro-B-Type Natriuretic Peptide 485 pg/mL (0-125) Total Protein 7.5 G/DL (6.4-8.2) Albumin 3.0 G/DL (3.4-5.0) Globulin 4.5 g/dL Albumin/Globulin Ratio 0.7 (1.0-2.7) Urine Color Yellow Urine Appearance Clear Urine pH 6 (4.5-8.0) Urine Specific [place] 1.015 (1.005-1.035) Urine Protein 2+ (NEGATIVE) Urine Glucose (UA) Negative (NEGATIVE) Urine Ketones Negative (NEGATIVE) Urine Occult Blood 1+ (NEGATIVE) Urine Nitrite Negative (NEGATIVE) Urine Bilirubin Negative (NEGATIVE) Urine Urobilinogen Normal MG/DL (0.0-1.0) Urine Leukocyte Esterase Negative (NEGATIVE) Urine RBC 5-10 /HPF (0 - 0) Urine WBC 0-2 /HPF (0 - 0) Urine Squamous Epithelial Cells Occasional /LPF Urine Bacteria Few /HPF (NONE) EKG Diagnostic Results Rate: normal Rhythm: NSR ST Segments: no acute changes Rhythm Strip Diag. Results EP Interpretation: yes Rhythm: NSR, no PVC's, no ectopy Last Vital Signs Date Time Temp Pulse Resp B/P (MAP) Pulse Ox O2 Delivery O2 Flow Rate FiO2 02/16/18 12:55 85 18 94 Room Air 02/16/18 12:39 21 02/16/18 11:50 97.9 131/66 97.9 Status: unchanged Disposition: ADMITTED INPATIENT Condition: Serious Referrals: Gurmeet Elizabeth MD (PCP) Mikael Flores Feb 16, 2018 13:42
--- NOTE | 2018-02-16 13:49 | Diagnostic Imaging Report ---
Indication: Dyspnea Comparison: 03/19/2017 A single view chest radiograph was obtained. Findings: No definite infiltrate or pulmonary vascular congestion identified. The heart is enlarged. The aorta is mildly enlarged consistent with atherosclerotic vascular disease. The bones are osteopenic. Impression: No acute disease
[2018-02-16 15:26] VITALS: BP 125/69
[2018-02-16] MEDS ORDERED: ROBITUSSIN COU237 M1 PO ×2 (16:22→16:24)
--- NOTE | 2018-02-16 17:30 | Consultation ---
Consult Note Consult Note asked to eval for renal failure and abnormal lytes Patient is an 87-year-old male sent in by PMD for increased productive cough and difficulty with breathing. [facility]. Patient had prior history of dementia. History is markedly limited by patient' s mental status. Past Medical History Deferred: Pt Cognitively Impaired Hx Cardiac Problems: Yes - Hypomagnesia Hx Hypertension: Yes Hx Diabetes: Yes - DM II Hx Gastrointestinal Problems: No - hemmorhage of anus and rectum, acute kidney failure, hypomagnesemia Hx Dialysis: No - ACUTE KIDNEY FAILURE Hx Neurological Problems: Yes - diffculty walking, muscle weakness Hx Cerebrovascular Accident: No - HIP FX Hx Dementia: Yes Hx Alzheimer's Disease: Yes Hx Weakness: Yes examined data reviewed . Assessment/Plan CHF exacerbation Renal failure- likely diabetic Type 2 diabetes mellitus, proteinuria Dementia Plan: Slow hydrate- urine studies correct MARIA ESTHER Beckwith Feb 16, 2018 17:30
[2018-02-16] MEDS ORDERED: Bisacodyl EC 5mg tab ORAL PRN ×3 (17:45→18:45)
[2018-02-16] MEDS ORDERED: Milk of Magnesia 30ml Ud ORAL PRN (18:15)
[2018-02-16] MEDS: Docusate 100mg cap ORAL SCH (18:36)
[2018-02-16 20:00] VITALS: BP 124/71
[2018-02-16] MEDS: Tamsulosin 0.4mg cap ORAL SCH (20:40)
[2018-02-16] MEDS: TraZODone HCl 25 mg tablet ORAL SCH (20:40)
[2018-02-16] MEDS: Donepezil 10mg tab ORAL SCH (20:40)
[2018-02-16] MEDS ORDERED: Albuterol/Ipratropium 3ml neb HHN PRN (21:45)
--- NOTE | 2018-02-16 22:07 | Consultation ---
Consult Note Assessment/Plan [facility] DICT # [id number] LANDON PAYNE M.D. Feb 16, 2018 22:07
[2018-02-16] MEDS: Guaifenesin/DM 10ml syrup ORAL PRN (22:41)
--- NOTE | 2018-02-16 23:00 | Consultation ---
DATE OF CONSULTATION: 02/16/2018 PULMONARY CONSULTATION CONSULTING PHYSICIAN: Sebastian Pappas M.D. REFERRING PHYSICIAN: Gurmeet Elizabeth M.D. REASON FOR CONSULTATION: Respiratory illness. HISTORY OF PRESENT ILLNESS: The patient is an 87-year-old male with a history of dementia, proctitis in the past, and diabetes, who presented with several days of shortness of breath, cough, and congestion from a facility. History is limited given the patient's mental status. He is sitting and unwilling to cooperate with the exam at the time of my evaluation. Nonetheless since presenting to the hospital, he has been afebrile. Vital signs have been stable except for brief periods of sinus tachycardia. Chest x-ray done in the emergency department and reviewed by myself did not demonstrate any acute findings. The patient's white count was 7.9. The remainder of his labs were normal except for a creatinine of 1.5. It was 1.3 at the time of his last discharge. He also had a sodium of 133, elevated CRP, and low albumin. Urinalysis, 2+ protein and 1+ occult blood. Rapid influenza A and B was negative. The patient was admitted in July with proctitis. He had endoscopy at that time. Nonetheless, he is admitted for further management of a respiratory illness. He has not received any antibiotics. PAST MEDICAL HISTORY: 1. Dementia. 2. Proctitis. 3. Possible underlying kidney disease. MEDICATIONS: Prior to admission medications reviewed. Current medications reviewed. ALLERGIES: No known drug allergies. SOCIAL HISTORY: [facility] resident. No known history of tobacco, alcohol, or drug use. FAMILY HISTORY: Unobtainable. REVIEW OF SYSTEMS: Unobtainable. PHYSICAL EXAMINATION: VITAL SIGNS: Temperature is 97.3, pulse 114, blood pressure 124/71, respiratory rate 20, and saturation 96% on room air. GENERAL: An elderly confused demented male, non-cooperative, and disheveled. HEENT: Normocephalic and atraumatic. Oropharynx is clear. NECK: Supple without lymphadenopathy or jugular venous distention. CHEST: Coarse bilateral breath sounds with end-expiratory wheezing. HEART: Regular rate and rhythm. ABDOMEN: Soft, nontender, and nondistended. EXTREMITIES: No cyanosis, clubbing, or edema. ANCILLARY DATA: White count 7.9, hemoglobin 14.3, and platelet count 153,000. Sodium 133, potassium 3.5, chloride 96, bicarbonate 32, BUN 24, and creatinine 1.5. Glucose 227. Lactic acid 1.7. Calcium 8.9, phosphorus 3.2, and magnesium 1.5. Total bilirubin 0.8. AST 23, ALT 21, and alkaline phosphatase 133. CK 150. Troponin 0.012. CRP 6.2. ProBNP 485. Albumin 3 and globulin 0.7. IMAGING: Chest x-ray does not show any acute findings. ASSESSMENT: The patient is an 87-year-old male with a history of diabetes, possible chronic kidney disease, dementia, admission previously with proctitis, now presenting for respiratory illness likely viral upper respiratory infection with superimposed tracheobronchitis. He had significant bronchospasm and wheezing. There was initially concern for a decompensated heart failure from the emergency room, but he appears euvolemic on exam. In fact, he may have a degree of prerenal azotemia. PROBLEM LIST: 1. Viral upper respiratory infection plus or minus superimposed tracheobronchitis. 2. Bronchospasm and wheezing. 3. Acute kidney injury, unlikely chronic kidney disease. 4. Elevated BNP, but no evidence of heart failure. 5. Dementia. 6. 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 7. Diabetes. TREATMENT PLAN: 1. Optimize pulmonary hygiene/mobilize as tolerated. 2. P.r.n. O2. 3. Gwawl-bqa-dhtnc and p.r.n. DuoNebs. 4. P.r.n. Robitussin DM. 5. Observe off antibiotics with a low threshold to start community-acquired pneumonia coverage. 6. Monitor volumes and renal function, agree with gentle IV fluid hydration. 7. Follow up echocardiogram. 8. Swallow evaluation. 9. Aspiration precautions. 10. DVT prophylaxis with heparin subcutaneous. 11. The patient is a Full Code. Dr. Elizabeth, thank you for allowing me to assist in the care of your patient. If I may be of any assistance in the future, please do not hesitate to ask. Sebastian Pappas M.D. : SAHRA JOB#: [id number] CC:
--- NOTE | 2018-02-16 23:00 | History and Physical Report ---
DATE OF ADMISSION: 02/16/2018 HISTORY OF PRESENT ILLNESS: The patient is a poor historian, comes here, admitted for CHF exacerbation. The patient also was coughing at the long-term. He had difficulty breathing. The patient has also had some wheezing as well. The patient denies nausea, vomiting, diarrhea. Denies fever, chills. Denies orthopnea. Denies headache. PAST MEDICAL HISTORY: Electrolyte imbalance, organic brain syndrome, history of hypertension, history of diabetes mellitus, history of renal failure, history of lower extremity weakness, history of BPH, GERD, constipation. ALLERGIES: There are no known allergies. PAST SURGICAL HISTORY: Denies. MEDICATIONS: Bisacodyl, Colace, benazepril, ferrous sulfate, melatonin, trazodone. FAMILY HISTORY: Noncontributory. SOCIAL HISTORY: Unable to obtain. REVIEW OF SYSTEMS: Unable to obtain. Poor historian. PHYSICAL EXAMINATION: VITAL SIGNS: Temperature 97.9, pulse 88, blood pressure 125/69. HEENT: PERRLA. NECK: Supple. CHEST: Bibasilar wheezing CARDIOVASCULAR: Regular rate and rhythm. GASTROINTESTINAL: Soft. Positive bowel sounds. Nontender. EXTREMITIES: A 1+ edema. Reflexes on both sides. He has generalized weakness. LABORATORY DATA: WBC of 7.9, hemoglobin 14.7, platelet of 153,000. Sodium 133, potassium 3.5, BUN of 24, creatinine 1.5, glucose of 227. ASSESSMENT AND PLAN: Rule out CHF exacerbation, shortness of breath, cough. I have asked Dr. Ashraf and Dr. Sebastian Pappas to see the patient for the management of fluid and management of the CHF as well as for the hypokalemia and hyponatremia. Gurmeet Elizabeth M.D. DR: Srinath JOB#: [id number] CC:
[2018-02-17] VITALS: BP 120/80
[2018-02-17] MEDS: Albuterol/Ipratropium 3ml neb HHN SCH ×5 (01:00→18:56)
[2018-02-17] MEDS: Guaifenesin/DM 10ml syrup ORAL PRN ×3 (03:21→22:55)
[2018-02-17 04:00] VITALS: BP 132/78
[2018-02-17] MEDS: NovoLOG Insulin Flexpen SUBQ SCH ×4 (07:20→21:44)
[2018-02-17 07:31] LABS: BASOPHILS % (AUTO) 0.7 % (0.0-2.0); EOSINOPHILS % (AUTO) 2.1 % (0.0-3.0); HEMATOCRIT 43.4 % (42.0-52.0); HEMOGLOBIN 14.9 G/DL (14.2-18.0); LYMPHOCYTES % (AUTO) 14.1 % (20.0-45.0); MEAN CORPUSCULAR VOLUME 91 FL (80-99); MONOCYTES % (AUTO) 9.6 % (1.0-10.0); NEUTROPHILS % (AUTO) 73.5 % (45.0-75.0); PLATELET COUNT 160 K/UL (150-450); RED BLOOD COUNT 4.78 M/UL (4.70-6.10); RED CELL DISTRIBUTION WIDTH 11.2 % (11.6-14.8); WHITE BLOOD COUNT 10.1 K/UL (4.8-10.8)
[2018-02-17 07:53] LABS: ALANINE AMINOTRANSFERASE 20 U/L (12-78); ALBUMIN 3.1 G/DL (3.4-5.0); ALBUMIN/GLOBULIN RATIO 0.7 (1.0-2.7); ALKALINE PHOSPHATASE 141 U/L (46-116); ANION GAP 4 mmol/L (5-15); ASPARTATE AMINO TRANSFERASE 26 U/L (15-37); BLOOD UREA NITROGEN 32 mg/dL (7-18); CALCIUM 8.5 MG/DL (8.5-10.1); CARBON DIOXIDE 32 MMOL/L (21-32); CHLORIDE 99 MMOL/L (98-107); CHOLESTEROL 149 MG/DL (< 200); CREATINE KINASE 193 U/L (26-308); CREATININE 1.7 MG/DL (0.55-1.30); GAMMA GLUTAMYL TRANSPEPTIDASE 102 U/L (5-85); HDL CHOLESTEROL 51 MG/DL (40-60); PHOSPHORUS 3.5 MG/DL (2.5-4.9); POTASSIUM 3.5 MMOL/L (3.5-5.1); SODIUM 135 MMOL/L (136-145); TRIGLYCERIDES 57 MG/DL (30-150)
[2018-02-17 08:00] VITALS: BP 105/64
--- NOTE | 2018-02-17 08:54 | Pulmonology Progress Note ---
Assessment/Plan Assessment/Plan ASSESSMENT: The patient is an 87-year-old male with a history of diabetes, possible chronic kidney disease, dementia, admission previously with proctitis, now presenting for respiratory illness likely viral upper respiratory infection with superimposed tracheobronchitis. He had significant bronchospasm and wheezing. There was initially concern for acute decompensated heart failure from the emergency room, but he appears euvolemic on exam. In fact, he may have a degree of prerenal azotemia. PROBLEM LIST: 1. Viral upper respiratory infection plus or minus superimposed tracheobronchitis. 2. Bronchospasm and wheezing. 3. Acute kidney injury, unlikely chronic kidney disease. 4. Elevated BNP, but no evidence of heart failure. 5. Dementia. 6. 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 7. Diabetes. TREATMENT PLAN: 1. Optimize pulmonary hygiene/mobilize as tolerated. 2. P.r.n. O2. 3. Yscyq-tsy-ylcxd and p.r.n. DuoNebs. 4. P.r.n. Robitussin DM. 5. Observe off antibiotics with a low threshold to start community-acquired pneumonia coverage. 6. Monitor volumes and renal function, agree with gentle IV fluid hydration. 7. Follow up echocardiogram. 8. Swallow evaluation. 9. Aspiration precautions. 10. DVT prophylaxis with heparin subcutaneous. 11. The patient is a Full Code. Subjective Allergies: Coded Allergies: No Known Allergies (Unverified , 03/19/17) Subjective AFVSS, stable on 2-3L + cough, + congestion, + wheezing, no F/C ABG noted Cr 1.7 Objective Last 24 Hour Vital Signs Date Time Temp Pulse Resp B/P (MAP) Pulse Ox O2 Delivery O2 Flow Rate FiO2 02/17/18 04:00 106 02/17/18 04:00 97.8 106 19 132/78 96 Room Air 97.8 02/17/18 01:05 119 94 Nasal Cannula 4.0 36 02/17/18 01:05 Nasal Cannula 4.0 36 02/17/18 00:00 98.0 121 22 120/80 94 Room Air 98.0 02/17/18 00:00 121 02/16/18 23:26 97 Nasal Cannula 3.0 32 02/16/18 23:26 Nasal Cannula 3.0 32 02/16/18 20:00 97.3 114 20 124/71 96 Room Air 97.3 02/16/18 20:00 118 02/16/18 15:49 97.9 88 21 125/69 92 Room Air 21 97.9 02/16/18 15:26 97.9 88 21 125/69 92 Room Air 21 97.9 02/16/18 13:33 96 29 130/68 93 Room Air 02/16/18 12:55 85 18 94 Room Air 02/16/18 12:39 84 17 Room Air 21 02/16/18 12:34 83 17 91 Room Air 21 02/16/18 11:50 95 20 Room Air 02/16/18 11:50 97.9 95 20 131/66 94 Room Air 97.9 02/16/18 11:10 99.1 90 20 119/76 90 Room Air 99.1 Intake and Output 02/16/18 02/17/18 19:00 07:00 Intake Total 20 ml 600 ml Balance 20 ml 600 ml Intake IV Total 20 ml 600 ml # Voids 1 2 # Bowel Movements 1 General Appearance: no acute distress, other - confused HEENT: normocephalic, atraumatic, anicteric, mucous membranes moist Respiratory/Chest: rhonchi - scattered anterior, clear with coughing Cardiovascular: normal peripheral pulses, normal rate, regular rhythm Abdomen: normal bowel sounds, soft, non tender, no organomegaly, non distended , no mass Extremities: no cyanosis, no clubbing, no edema Microbiology Date/Time Source Procedure Growth Status 02/16/18 13:49 Nasal Nares Influenza Types A,B Antigen ([facility]) - Final Complete Laboratory Tests 02/16/18 11:35: White Blood Count 7.9, Red Blood Count 4.84, Hemoglobin 14.7, Hematocrit 43.7, Mean Corpuscular Volume 90, Mean Corpuscular Hemoglobin 30.4, Mean Corpuscular Hemoglobin Concent 33.6, Red Cell Distribution Width 11.3L, Platelet Count 153, Mean Platelet Volume 7.1, Neutrophils (%) (Auto) 63.4, Lymphocytes (%) (Auto) 22.2, Monocytes (%) (Auto) 9.2, Eosinophils (%) (Auto) 4.4H, Basophils (%) (Auto ) 0.8, Sodium Level 133L, Potassium Level 3.5, Chloride Level 96L, Carbon Dioxide Level 32, Anion Gap 5, Blood Urea Nitrogen 24H, Creatinine 1.5H, Estimat Glomerular Filtration Rate , Glucose Level 227H, Lactic Acid Level 1.70 , Calcium Level 8.9, Phosphorus Level 3.2, Magnesium Level 1.5L, Total Bilirubin 0.8, Aspartate Amino Transf (AST/SGOT) 23, Alanine Aminotransferase ( ALT/SGPT) 21, Alkaline Phosphatase 133H, Total Creatine Kinase 150, Creatine Kinase MB 0.8, Creatine Kinase MB Relative Index 0.5, Troponin I 0.012, C- Reactive Protein, Quantitative 6.2H, Pro-B-Type Natriuretic Peptide 485H, Total Protein 7.5, Albumin 3.0L, Globulin 4.5, Albumin/Globulin Ratio 0.7L 02/16/18 12:07: Urine Color Yellow, Urine Appearance Clear, Urine pH 6, Urine Specific [place] 1.015, Urine Protein 2+H, Urine Glucose (UA) Negative, Urine Ketones Negative, Urine Occult Blood 1+H, Urine Nitrite Negative, Urine Bilirubin Negative, Urine Urobilinogen Normal, Urine Leukocyte Esterase Negative, Urine RBC 5-10H, Urine WBC 0-2, Urine Squamous Epithelial Cells Occasional, Urine Bacteria Few 02/16/18 21:43: Arterial Blood pH 7.458H, Arterial Blood Partial Pressure CO2 45.4H, Arterial Blood Partial Pressure O2 49.5*L, Arterial Blood HCO3 31.4H, Arterial Blood Oxygen Saturation 87.0L, Arterial Blood Base Excess 6.5, [place]rem[place] Test Positive 02/17/18 07:10: White Blood Count 10.1, Red Blood Count 4.78, Hemoglobin 14.9, Hematocrit 43.4, Mean Corpuscular Volume 91, Mean Corpuscular Hemoglobin 31.2H, Mean Corpuscular Hemoglobin Concent 34.4, Red Cell Distribution Width 11.2L, Platelet Count 160, Mean Platelet Volume 7.4, Neutrophils (%) (Auto) 73.5, Lymphocytes (%) (Auto) 14.1L, Monocytes (%) (Auto) 9.6, Eosinophils (%) (Auto) 2.1, Basophils (%) (Auto ) 0.7, Sodium Level 135L, Potassium Level 3.5, Chloride Level 99, Carbon Dioxide Level 32, Anion Gap 4L, Blood Urea Nitrogen 32H, Creatinine 1.7H, Estimat Glomerular Filtration Rate , Glucose Level 203H, Calcium Level 8.5, Phosphorus Level 3.5, Magnesium Level 1.8, Total Bilirubin 1.0, Aspartate Amino Transf (AST/SGOT) 26, Alanine Aminotransferase (ALT/SGPT) 20, Alkaline Phosphatase 141H, Total Creatine Kinase 193, Troponin I 0.000, Pro-B-Type Natriuretic Peptide 265H, Total Protein 7.4, Albumin 3.1L, Globulin 4.3, Albumin /Globulin Ratio 0.7L, Hemoglobin A1c 7.8H, Uric Acid 8.3H, Gamma Glutamyl Transpeptidase 102H, Triglycerides Level 57, Cholesterol Level 149, LDL Cholesterol 93, HDL Cholesterol 51, Cholesterol/HDL Ratio 2.9L, Vitamin B12 Level 425, Folate 15.7, Thyroid Stimulating Hormone (TSH) 0.179L Current Medications Medications (Trade) Dose Ordered Sig/Filemon Route PRN Reason Start Time Stop Time Status Last Admin Dose Admin Acetaminophen (Tylenol) 650 mg Q4H PRN ORAL Mild Pain/Temp > 100.5 02/16/18 18:30 03/18/18 18:29 Albuterol/ Ipratropium (Albuterol/ Ipratropium) 3 ml Q4H PRN HHN Shortness of Breath 02/16/18 21:45 02/21/18 21:44 Albuterol/ Ipratropium (Albuterol/ Ipratropium) 3 ml Q6HRT HHN 02/17/18 01:00 02/22/18 00:59 Aspirin (Ecotrin) 81 mg DAILY ORAL 02/17/18 09:00 03/19/18 08:59 Bisacodyl (Dulcolax) 10 mg DAILYPRN PRN ORAL Constipation 02/16/18 18:45 03/18/18 17:44 Dextrose (Dextrose 50%) STAT PRN IV Hypoglycemia 02/16/18 22:15 03/18/18 22:14 Dextrose (Dextrose 50%) 25 ml STAT PRN IV Hypoglycemia 02/16/18 22:15 03/18/18 22:14 Docusate Sodium (Colace) 100 mg TID ORAL 02/16/18 18:00 03/18/18 17:59 02/16/18 18:36 Donepezil HCl (Aricept) 10 mg BEDTIME ORAL 02/16/18 21:00 03/18/18 20:59 02/16/18 20:40 Guaifenesin/ Dextromethorphan (Robitussin DM Syrup) 10 ml Q4H PRN ORAL For Cough 02/16/18 20:30 03/18/18 20:29 02/17/18 03:21 Heparin Sodium (Porcine) (Heparin 5000 units/ml) 5,000 units EVERY 12 HOURS SUBQ 02/17/18 09:00 03/19/18 08:59 Insulin Aspart (NovoLOG) BEFORE MEALS AND HS SUBQ 02/17/18 06:30 03/19/18 06:29 02/17/18 07:20 Lansoprazole (Prevacid) 30 mg DAILY ORAL 02/16/18 18:00 03/18/18 17:59 02/16/18 18:36 Memantine (Namenda) 10 mg BID ORAL 02/17/18 09:00 03/19/18 08:59 Sodium Chloride 1,000 ml @ 50 mls/hr Q20H IV 02/16/18 18:00 03/18/18 17:59 02/16/18 18:38 Tamsulosin HCl (Flomax) 0.4 mg BEDTIME ORAL 02/16/18 21:00 03/18/18 20:59 02/16/18 20:40 Trazodone HCl (Desyrel) 25 mg BEDTIME ORAL 02/16/18 21:00 03/18/18 20:59 02/16/18 20:40 LANDON PAYNE M.D. Feb 17, 2018 08:54
[2018-02-17] MEDS ORDERED: Docusate 100mg cap ORAL SCH (09:00)
[2018-02-17] MEDS ORDERED: Aspirin Baby 81mg ORAL SCH (09:00)
[2018-02-17] MEDS: Memantine 10mg tab ORAL SCH ×2 (09:56→19:32)
[2018-02-17] MEDS: Aspirin EC 81mg tab ORAL SCH (09:57)
[2018-02-17] MEDS: Docusate 100mg cap ORAL SCH ×3 (09:57→19:32)
[2018-02-17] MEDS: Heparin 5000 units/ml inj SUBQ SCH ×2 (10:03→21:44)
[2018-02-17 12:00] VITALS: BP 110/65
--- NOTE | 2018-02-17 13:11 | Nephrology Progress Note ---
Assessment/Plan Problem List: (1) Renal failure (ARF), acute on chronic Assessment: CKD- Nephropathy (2) CHF exacerbation (3) Type 2 diabetes mellitus (4) Dementia Assessment CHF exacerbation Renal failure- likely diabetic Type 2 diabetes mellitus, proteinuria Dementia Plan Plan: Slow hydrate- urine studies correct lytes avoid nephrotoxics Objective Objective Last 24 Hour Vital Signs Date Time Temp Pulse Resp B/P (MAP) Pulse Ox O2 Delivery O2 Flow Rate FiO2 02/17/18 09:15 99 18 100 Nasal Cannula 4.0 36 02/17/18 09:15 Nasal Cannula 4.0 36 02/17/18 09:05 92 22 98 Nasal Cannula 4.0 36 02/17/18 09:05 98 Nasal Cannula 4.0 36 02/17/18 08:00 98.6 101 20 105/64 97 Room Air 98.6 02/17/18 04:00 106 02/17/18 04:00 97.8 106 19 132/78 96 Room Air 97.8 02/17/18 01:05 119 94 Nasal Cannula 4.0 36 02/17/18 01:05 Nasal Cannula 4.0 36 02/17/18 00:00 98.0 121 22 120/80 94 Room Air 98.0 02/17/18 00:00 121 02/16/18 23:26 97 Nasal Cannula 3.0 32 02/16/18 23:26 Nasal Cannula 3.0 32 02/16/18 20:00 97.3 114 20 124/71 96 Room Air 97.3 02/16/18 20:00 118 02/16/18 15:49 97.9 88 21 125/69 92 Room Air 21 97.9 02/16/18 15:26 97.9 88 21 125/69 92 Room Air 21 97.9 02/16/18 13:33 96 29 130/68 93 Room Air Intake and Output 02/16/18 02/17/18 19:00 07:00 Intake Total 20 ml 600 ml Balance 20 ml 600 ml IV Total 20 ml 600 ml # Voids 1 2 # Bowel Movements 1 Laboratory Tests 02/16/18 21:43: Arterial Blood pH 7.458H, Arterial Blood Partial Pressure CO2 45.4H, Arterial Blood Partial Pressure O2 49.5*L, Arterial Blood HCO3 31.4H, Arterial Blood Oxygen Saturation 87.0L, Arterial Blood Base Excess 6.5, Tremaine Test Positive 02/17/18 07:10: White Blood Count 10.1, Red Blood Count 4.78, Hemoglobin 14.9, Hematocrit 43.4, Mean Corpuscular Volume 91, Mean Corpuscular Hemoglobin 31.2H, Mean Corpuscular Hemoglobin Concent 34.4, Red Cell Distribution Width 11.2L, Platelet Count 160, Mean Platelet Volume 7.4, Neutrophils (%) (Auto) 73.5, Lymphocytes (%) (Auto) 14.1L, Monocytes (%) (Auto) 9.6, Eosinophils (%) (Auto) 2.1, Basophils (%) (Auto ) 0.7, Sodium Level 135L, Potassium Level 3.5, Chloride Level 99, Carbon Dioxide Level 32, Anion Gap 4L, Blood Urea Nitrogen 32H, Creatinine 1.7H, Estimat Glomerular Filtration Rate , Glucose Level 203H, Hemoglobin A1c 7.8H, Uric Acid 8.3H, Calcium Level 8.5, Phosphorus Level 3.5, Magnesium Level 1.8, Total Bilirubin 1.0, Gamma Glutamyl Transpeptidase 102H, Aspartate Amino Transf (AST/SGOT) 26, Alanine Aminotransferase (ALT/SGPT) 20, Alkaline Phosphatase 141H , Total Creatine Kinase 193, Troponin I 0.000, Pro-B-Type Natriuretic Peptide 265H, Total Protein 7.4, Albumin 3.1L, Globulin 4.3, Albumin/Globulin Ratio 0.7L , Triglycerides Level 57, Cholesterol Level 149, LDL Cholesterol 93, HDL Cholesterol 51, Cholesterol/HDL Ratio 2.9L, Vitamin B12 Level 425, Folate 15.7, Thyroid Stimulating Hormone (TSH) 0.179L Height (Feet): 5 Height (Inches): 6.00 Weight (Pounds): 147 General Appearance: no apparent distress, lethargic Respiratory/Chest: decreased breath sounds Abdomen: distended MARIA ESTHER CARIAS Feb 17, 2018 13:11
--- NOTE | 2018-02-17 16:20 | Cardiology Report ---
APPROVED REPORT EXAM: Two-dimensional and M-mode echocardiogram with Doppler and color Doppler. M-Mode DIMENSIONS IVSd1.6 (0.7-1.1cm)Left Atrium (MM)3.4 (1.6-4.0cm) LVDd4.5 (3.5-5.6cm)Aortic Root4.0 (2.0-3.7cm) PWd1.9 (0.7-1.1cm)Aortic Cusp Exc.2.2 (1.5-2.0cm) LVDs3.1 (2.5-4.0cm) PWs2.3 cm Technically difficult study due to poor acoustical windows. Normal left ventricular chamber size, GROSSLY NORMAL systolic function and wall motion to extent visualized. Left ventricular ejection fraction estimated to be 50-55 %. Study quality precludes accurate assessment of regional wall motion. Mild left ventricular hypertrophy. No evidence of pericardial effusion. All other cardiac chamber sizes are within normal limits. Focal aortic valve sclerosis with adequate cusp excursion. Aortic root dilatation. Thickened mitral valve leaflets with normal excursion. Mitral annulus and aortic root calcification. Pulmonic valve not well visualized. Normal tricuspid valve structure. IVC at normal size with physiologic collapse. A color flow and spectral Doppler study was performed and revealed: Trace aortic regurgitation. No mitral regurgitation. Mitral diastolic velocities suggest reduced left ventricular relaxation c/w mild LV diastolic dysfunction (Grade I). Trace tricuspid regurgitation. Tricuspid systolic velocities suggests peak right ventricular systolic pressure of 15 mmHg.
--- NOTE | 2018-02-17 16:26 | Cardiology Report ---
APPROVED REPORT EKG Measurement Heart [id number] Normal sinus rhythm Nonspecific T wave abnormality Prolonged QT Abnormal ECG
[2018-02-17 20:00] VITALS: BP 133/78
--- NOTE | 2018-02-17 21:16 | General Progress Note ---
Assessment/Plan Problem List: (1) Dementia ICD Codes: F03.90 - Unspecified dementia without behavioral disturbance SNOMED: 34872146 (2) Type 2 diabetes mellitus ICD Codes: E11.9 - Type 2 diabetes mellitus without complications SNOMED: 83393108 (3) CHF exacerbation ICD Codes: I50.9 - Heart failure, unspecified SNOMED: 01781738 Status: progressing Assessment/Plan afebrile vitals stable r/o cva dm reviewed chart and labs Subjective ROS Limited/Unobtainable: Yes Allergies: Coded Allergies: No Known Allergies (Unverified , 03/19/17) Objective Last 24 Hour Vital Signs Date Time Temp Pulse Resp B/P (MAP) Pulse Ox O2 Delivery O2 Flow Rate FiO2 02/17/18 20:00 97.0 86 18 133/78 98 97.0 02/17/18 19:11 83 20 97 Nasal Cannula 4.0 36 02/17/18 18:57 94 Nasal Cannula 4.0 36 02/17/18 18:57 Nasal Cannula 4.0 36 02/17/18 18:56 76 22 94 Nasal Cannula 4.0 36 02/17/18 16:00 88 02/17/18 13:17 101 18 100 Nasal Cannula 4.0 36 02/17/18 13:06 95 22 98 Nasal Cannula 4.0 36 02/17/18 12:00 94 02/17/18 12:00 97.5 99 20 110/65 95 Nasal Cannula 2.0 97.5 02/17/18 09:15 99 18 100 Nasal Cannula 4.0 36 02/17/18 09:15 Nasal Cannula 4.0 36 02/17/18 09:05 92 22 98 Nasal Cannula 4.0 36 02/17/18 09:05 98 Nasal Cannula 4.0 36 02/17/18 08:00 98.6 101 20 105/64 97 Room Air 98.6 02/17/18 08:00 102 02/17/18 04:00 106 02/17/18 04:00 97.8 106 19 132/78 96 Room Air 97.8 02/17/18 01:05 119 94 Nasal Cannula 4.0 36 02/17/18 01:05 Nasal Cannula 4.0 36 02/17/18 00:00 98.0 121 22 120/80 94 Room Air 98.0 4/10/18 00:00 121 02/16/18 23:26 97 Nasal Cannula 3.0 32 02/16/18 23:26 Nasal Cannula 3.0 32 Intake and Output 02/16/18 02/17/18 19:00 07:00 Intake Total 20 ml 600 ml Balance 20 ml 600 ml IV Total 20 ml 600 ml # Voids 1 2 # Bowel Movements 1 Laboratory Tests 02/16/18 21:43: Arterial Blood pH 7.458H, Arterial Blood Partial Pressure CO2 45.4H, Arterial Blood Partial Pressure O2 49.5*L, Arterial Blood HCO3 31.4H, Arterial Blood Oxygen Saturation 87.0L, Arterial Blood Base Excess 6.5, Tremaine Test Positive 02/17/18 07:10: White Blood Count 10.1, Red Blood Count 4.78, Hemoglobin 14.9, Hematocrit 43.4, Mean Corpuscular Volume 91, Mean Corpuscular Hemoglobin 31.2H, Mean Corpuscular Hemoglobin Concent 34.4, Red Cell Distribution Width 11.2L, Platelet Count 160, Mean Platelet Volume 7.4, Neutrophils (%) (Auto) 73.5, Lymphocytes (%) (Auto) 14.1L, Monocytes (%) (Auto) 9.6, Eosinophils (%) (Auto) 2.1, Basophils (%) (Auto ) 0.7, Sodium Level 135L, Potassium Level 3.5, Chloride Level 99, Carbon Dioxide Level 32, Anion Gap 4L, Blood Urea Nitrogen 32H, Creatinine 1.7H, Estimat Glomerular Filtration Rate , Glucose Level 203H, Hemoglobin A1c 7.8H, Uric Acid 8.3H, Calcium Level 8.5, Phosphorus Level 3.5, Magnesium Level 1.8, Total Bilirubin 1.0, Gamma Glutamyl Transpeptidase 102H, Aspartate Amino Transf (AST/SGOT) 26, Alanine Aminotransferase (ALT/SGPT) 20, Alkaline Phosphatase 141H , Total Creatine Kinase 193, Troponin I 0.000, Pro-B-Type Natriuretic Peptide 265H, Total Protein 7.4, Albumin 3.1L, Globulin 4.3, Albumin/Globulin Ratio 0.7L , Triglycerides Level 57, Cholesterol Level 149, LDL Cholesterol 93, HDL Cholesterol 51, Cholesterol/HDL Ratio 2.9L, Vitamin B12 Level 425, Folate 15.7, Thyroid Stimulating Hormone (TSH) 0.179L Height (Feet): 5 Height (Inches): 6.00 Weight (Pounds): 147 General Appearance: confused Cardiovascular: normal rate Respiratory/Chest: lungs clear Gurmeet Elizabeth MD Feb 17, 2018 21:16
[2018-02-17] MEDS: Donepezil 10mg tab ORAL SCH (21:40)
[2018-02-17] MEDS: TraZODone HCl 25 mg tablet ORAL SCH (21:40)
[2018-02-17] MEDS: Tamsulosin 0.4mg cap ORAL SCH (21:40)
[2018-02-18] VITALS: BP 137/68
[2018-02-18] MEDS: Albuterol/Ipratropium 3ml neb HHN SCH ×4 (00:39→19:34)
[2018-02-18 04:00] VITALS: BP 126/76
[2018-02-18] MEDS: Guaifenesin/DM 10ml syrup ORAL PRN (06:15)
[2018-02-18] MEDS: NovoLOG Insulin Flexpen SUBQ SCH ×4 (06:17→21:23)
--- NOTE | 2018-02-18 07:39 | Pulmonology Progress Note ---
Assessment/Plan Assessment/Plan ASSESSMENT: The patient is an 87-year-old male with a history of diabetes, possible chronic kidney disease, dementia, admission previously with proctitis, now presenting for respiratory illness likely viral upper respiratory infection with superimposed tracheobronchitis. He had significant bronchospasm and wheezing. There was initially concern for acute decompensated heart failure from the emergency room, but he appears euvolemic on exam. In fact, he may have a degree of prerenal azotemia. PROBLEM LIST: 1. Viral upper respiratory infection plus or minus superimposed tracheobronchitis. 2. Bronchospasm and wheezing. 3. Acute kidney injury on underlying chronic kidney disease. 4. Elevated BNP, but no evidence of heart failure. 5. Dementia. 6. 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 7. Diabetes. 8. 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 Optimize pulmonary hygiene/mobilize as tolerated. 2. P.r.n. O2. 3. Qtymn-rqr-aaddt and p.r.n. DuoNebs. 4. P.r.n. Robitussin DM. 5. Observe off antibiotics with a low threshold to start community-acquired pneumonia coverage. 6. Monitor volumes and renal function, continue gentle IV fluid hydration. 7. Repeat duplex 2-3 days, no need to A/C for BTK DVT, F/U D-dimer 8. Aspiration precautions. 9. DVT prophylaxis with heparin subcutaneous. 10. The patient is a Full Code. Subjective Allergies: Coded Allergies: No Known Allergies (Unverified , 03/19/17) Subjective AFVSS, stable on 2-4L less cough, less congestion, no wheezing, no F/C Prelim duplex with possible BTK DVT, TTE with normal LV fxn Objective Last 24 Hour Vital Signs Date Time Temp Pulse Resp B/P (MAP) Pulse Ox O2 Delivery O2 Flow Rate FiO2 02/18/18 04:00 97.3 96 20 126/76 95 Nasal Cannula 2.0 97.3 02/18/18 04:00 95 02/18/18 00:49 76 20 98 Nasal Cannula 4.0 36 02/18/18 00:39 75 22 95 Nasal Cannula 4.0 36 02/18/18 00:00 84 02/18/18 00:00 97.2 90 16 137/68 94 Nasal Cannula 2.0 97.2 02/17/18 20:00 97.0 86 18 133/78 98 97.0 02/17/18 20:00 75 02/17/18 20:00 Nasal Cannula 2.0 02/17/18 19:11 83 20 97 Nasal Cannula 4.0 36 02/17/18 18:57 94 Nasal Cannula 4.0 36 02/17/18 18:57 Nasal Cannula 4.0 36 02/17/18 18:56 76 22 94 Nasal Cannula 4.0 36 02/17/18 16:00 88 02/17/18 13:17 101 18 100 Nasal Cannula 4.0 36 02/17/18 13:06 95 22 98 Nasal Cannula 4.0 36 02/17/18 12:00 94 02/17/18 12:00 97.5 99 20 110/65 95 Nasal Cannula 2.0 97.5 02/17/18 09:15 99 18 100 Nasal Cannula 4.0 36 02/17/18 09:15 Nasal Cannula 4.0 36 02/17/18 09:05 92 22 98 Nasal Cannula 4.0 36 02/17/18 09:05 98 Nasal Cannula 4.0 36 02/17/18 08:00 98.6 101 20 105/64 97 Room Air 98.6 02/17/18 08:00 102 Intake and Output 02/17/18 02/18/18 19:00 07:00 Intake Total 460 ml 600 ml Balance 460 ml 600 ml Intake Oral 410 ml IV Total 50 ml 600 ml # Voids 4 2 # Bowel Movements 1 General Appearance: no acute distress, cachetic, other - confused elderly HEENT: normocephalic, atraumatic, anicteric, mucous membranes moist Respiratory/Chest: chest wall non-tender, lungs clear, normal breath sounds, no respiratory distress, no accessory muscle use Cardiovascular: normal peripheral pulses, normal rate, regular rhythm Abdomen: normal bowel sounds, soft, non tender, no organomegaly, non distended Extremities: no cyanosis, no clubbing, no edema Microbiology Date/Time Source Procedure Growth Status 02/16/18 11:35 Blood Blood Culture - Preliminary NO GROWTH AFTER 24 HOURS Resulted 02/16/18 11:20 Blood Blood Culture - Preliminary NO GROWTH AFTER 24 HOURS Resulted 02/16/18 13:49 Nasal Nares Influenza Types A,B Antigen ([facility]) - Final Complete Current Medications Medications (Trade) Dose Ordered Sig/Filemon Route PRN Reason Start Time Stop Time Status Last Admin Dose Admin Acetaminophen (Tylenol) 650 mg Q4H PRN ORAL Mild Pain/Temp > 100.5 02/16/18 18:30 03/18/18 18:29 02/17/18 10:22 Albuterol/ Ipratropium (Albuterol/ Ipratropium) 3 ml Q4H PRN HHN Shortness of Breath 02/16/18 21:45 02/21/18 21:44 Albuterol/ Ipratropium (Albuterol/ Ipratropium) 3 ml Q6HRT HHN 02/17/18 01:00 02/22/18 00:59 02/18/18 00:39 Aspirin (Ecotrin) 81 mg DAILY ORAL 02/17/18 09:00 03/19/18 08:59 02/17/18 09:57 Bisacodyl (Dulcolax) 10 mg DAILYPRN PRN ORAL Constipation 02/16/18 18:45 03/18/18 17:44 Dextrose (Dextrose 50%) STAT PRN IV Hypoglycemia 02/16/18 22:15 03/18/18 22:14 Dextrose (Dextrose 50%) 25 ml STAT PRN IV Hypoglycemia 02/16/18 22:15 03/18/18 22:14 Docusate Sodium (Colace) 100 mg TID ORAL 02/16/18 18:00 03/18/18 17:59 02/17/18 19:32 Donepezil HCl (Aricept) 10 mg BEDTIME ORAL 02/16/18 21:00 03/18/18 20:59 02/17/18 21:40 Guaifenesin/ Dextromethorphan (Robitussin DM Syrup) 10 ml Q4H PRN ORAL For Cough 02/16/18 20:30 03/18/18 20:29 02/18/18 06:15 Heparin Sodium (Porcine) (Heparin 5000 units/ml) 5,000 units EVERY 12 HOURS SUBQ 02/17/18 09:00 03/19/18 08:59 02/17/18 21:44 Insulin Aspart (NovoLOG) BEFORE MEALS AND HS SUBQ 02/17/18 06:30 03/19/18 06:29 02/18/18 06:17 Lansoprazole (Prevacid) 30 mg DAILY ORAL 02/16/18 18:00 03/18/18 17:59 02/17/18 09:57 Memantine (Namenda) 10 mg BID ORAL 02/17/18 09:00 03/19/18 08:59 02/17/18 19:32 Sodium Chloride 1,000 ml @ 50 mls/hr Q20H IV 02/16/18 18:00 03/18/18 17:59 02/17/18 15:57 Tamsulosin HCl (Flomax) 0.4 mg BEDTIME ORAL 02/16/18 21:00 03/18/18 20:59 02/17/18 21:40 Trazodone HCl (Desyrel) 25 mg BEDTIME ORAL 02/16/18 21:00 03/18/18 20:59 02/17/18 21:40 LANDON PAYNE M.D. Feb 18, 2018 07:39
[2018-02-18 08:00] VITALS: BP 119/66
[2018-02-18] MEDS: Aspirin EC 81mg tab ORAL SCH (08:04)
[2018-02-18] MEDS: Memantine 10mg tab ORAL SCH ×2 (08:04→17:01)
[2018-02-18] MEDS: Docusate 100mg cap ORAL SCH ×3 (08:05→17:01)
[2018-02-18] MEDS: Heparin 5000 units/ml inj SUBQ SCH ×2 (08:07→21:22)
[2018-02-18 12:00] VITALS: BP 137/73
--- NOTE | 2018-02-18 12:13 | Nephrology Progress Note ---
Assessment/Plan Problem List: (1) Renal failure (ARF), acute on chronic Assessment: CKD- Nephropathy (2) CHF exacerbation (3) Type 2 diabetes mellitus (4) Dementia Assessment CHF exacerbation Renal failure- likely diabetic Type 2 diabetes mellitus, proteinuria Dementia Plan Plan: Slow hydrate- urine studies correct lytes avoid nephrotoxics Subjective ROS Limited/Unobtainable: No Constitutional: Reports: malaise, weakness Objective Objective Last 24 Hour Vital Signs Date Time Temp Pulse Resp B/P (MAP) Pulse Ox O2 Delivery O2 Flow Rate FiO2 02/18/18 09:37 92 02/18/18 08:00 97.3 91 20 119/66 100 Nasal Cannula 4.0 36 97.3 02/18/18 07:56 96 20 100 Nasal Cannula 4.0 36 02/18/18 07:45 98 Nasal Cannula 4.0 36 02/18/18 07:45 92 20 98 Nasal Cannula 4.0 36 02/18/18 07:45 Nasal Cannula 4.0 36 02/18/18 04:00 97.3 96 20 126/76 95 Nasal Cannula 2.0 97.3 02/18/18 04:00 95 02/18/18 00:49 76 20 98 Nasal Cannula 4.0 36 02/18/18 00:39 75 22 95 Nasal Cannula 4.0 36 02/18/18 00:00 84 02/18/18 00:00 97.2 90 16 137/68 94 Nasal Cannula 2.0 97.2 02/17/18 20:00 97.0 86 18 133/78 98 97.0 02/17/18 20:00 75 02/17/18 20:00 Nasal Cannula 2.0 02/17/18 19:11 83 20 97 Nasal Cannula 4.0 36 02/17/18 18:57 94 Nasal Cannula 4.0 36 02/17/18 18:57 Nasal Cannula 4.0 36 02/17/18 18:56 76 22 94 Nasal Cannula 4.0 36 02/17/18 16:00 88 02/17/18 13:17 101 18 100 Nasal Cannula 4.0 36 02/17/18 13:06 95 22 98 Nasal Cannula 4.0 36 Intake and Output 02/17/18 02/18/18 19:00 07:00 Intake Total 460 ml 670 ml Balance 460 ml 670 ml Intake Oral 410 ml 70 ml IV Total 50 ml 600 ml # Voids 4 2 # Bowel Movements 1 Laboratory Tests 02/18/18 09:30: D-Dimer 1.04H Height (Feet): 5 Height (Inches): 6.00 Weight (Pounds): 181 General Appearance: no apparent distress Cardiovascular: normal rate Respiratory/Chest: decreased breath sounds Abdomen: soft MARIA ESTHER CARIAS Feb 18, 2018 12:13
--- NOTE | 2018-02-18 14:36 | General Progress Note ---
Assessment/Plan Problem List: (1) Dementia ICD Codes: F03.90 - Unspecified dementia without behavioral disturbance SNOMED: 88749835 (2) Type 2 diabetes mellitus ICD Codes: E11.9 - Type 2 diabetes mellitus without complications SNOMED: 44737706 (3) CHF exacerbation ICD Codes: I50.9 - Heart failure, unspecified SNOMED: 80107247 Status: progressing Assessment/Plan azotemia low k r/o cva dm reviewed chart and labs Subjective ROS Limited/Unobtainable: Yes Constitutional: Reports: no symptoms Allergies: Coded Allergies: No Known Allergies (Unverified , 03/19/17) Objective Last 24 Hour Vital Signs Date Time Temp Pulse Resp B/P (MAP) Pulse Ox O2 Delivery O2 Flow Rate FiO2 02/18/18 12:00 97.5 84 20 137/73 100 Nasal Cannula 4.0 36 97.5 02/18/18 12:00 85 02/18/18 09:37 92 02/18/18 08:00 97.3 91 20 119/66 100 Nasal Cannula 4.0 36 97.3 02/18/18 07:56 96 20 100 Nasal Cannula 4.0 36 02/18/18 07:45 98 Nasal Cannula 4.0 36 02/18/18 07:45 92 20 98 Nasal Cannula 4.0 36 02/18/18 07:45 Nasal Cannula 4.0 36 02/18/18 04:00 97.3 96 20 126/76 95 Nasal Cannula 2.0 97.3 02/18/18 04:00 95 02/18/18 00:49 76 20 98 Nasal Cannula 4.0 36 02/18/18 00:39 75 22 95 Nasal Cannula 4.0 36 02/18/18 00:00 84 02/18/18 00:00 97.2 90 16 137/68 94 Nasal Cannula 2.0 97.2 02/17/18 20:00 97.0 86 18 133/78 98 97.0 02/17/18 20:00 75 02/17/18 20:00 Nasal Cannula 2.0 02/17/18 19:11 83 20 97 Nasal Cannula 4.0 36 02/17/18 18:57 94 Nasal Cannula 4.0 36 02/17/18 18:57 Nasal Cannula 4.0 36 02/17/18 18:56 76 22 94 Nasal Cannula 4.0 36 02/17/18 16:00 88 Intake and Output 02/17/18 02/18/18 19:00 07:00 Intake Total 460 ml 670 ml Balance 460 ml 670 ml Intake Oral 410 ml 70 ml IV Total 50 ml 600 ml # Voids 4 2 # Bowel Movements 1 Laboratory Tests 02/18/18 09:30: D-Dimer 1.04H, C-Reactive Protein, Quantitative 16.0H Height (Feet): 5 Height (Inches): 6.00 Weight (Pounds): 181 General Appearance: confused Cardiovascular: normal rate Respiratory/Chest: lungs clear Abdomen: soft Gurmeet Elizabeth MD Feb 18, 2018 14:36
[2018-02-18 16:00] VITALS: BP 121/60
[2018-02-18 20:00] VITALS: BP 119/56
[2018-02-18] MEDS: TraZODone HCl 25 mg tablet ORAL SCH (21:21)
[2018-02-18] MEDS: Donepezil 10mg tab ORAL SCH (21:21)
[2018-02-18] MEDS: Tamsulosin 0.4mg cap ORAL SCH (21:21)
[2018-02-19] VITALS: BP 112/70
[2018-02-19] MEDS: Albuterol/Ipratropium 3ml neb HHN SCH ×4 (01:20→20:27)
[2018-02-19 04:00] VITALS: BP 118/54
[2018-02-19] MEDS: NovoLOG Insulin Flexpen SUBQ SCH ×4 (06:26→21:14)
[2018-02-19 08:00] VITALS: BP 133/77
[2018-02-19 08:00] LABS: BASOPHILS % (AUTO) 0.6 % (0.0-2.0); EOSINOPHILS % (AUTO) 3.1 % (0.0-3.0); HEMATOCRIT 39.2 % (42.0-52.0); HEMOGLOBIN 13.4 G/DL (14.2-18.0); LYMPHOCYTES % (AUTO) 15.2 % (20.0-45.0); MEAN CORPUSCULAR VOLUME 91 FL (80-99); MONOCYTES % (AUTO) 8.3 % (1.0-10.0); NEUTROPHILS % (AUTO) 72.7 % (45.0-75.0); PLATELET COUNT 142 K/UL (150-450); RED CELL DISTRIBUTION WIDTH 11.4 % (11.6-14.8); WHITE BLOOD COUNT 8.3 K/UL (4.8-10.8)
[2018-02-19 08:21] LABS: ALANINE AMINOTRANSFERASE 22 U/L (12-78); ALBUMIN 2.8 G/DL (3.4-5.0); ALBUMIN/GLOBULIN RATIO 0.6 (1.0-2.7); ALKALINE PHOSPHATASE 135 U/L (46-116); ANION GAP 6 mmol/L (5-15); ASPARTATE AMINO TRANSFERASE 30 U/L (15-37); BILIRUBIN,TOTAL 0.7 MG/DL (0.2-1.0); BLOOD UREA NITROGEN 22 mg/dL (7-18); CALCIUM 8.7 MG/DL (8.5-10.1); CARBON DIOXIDE 30 MMOL/L (21-32); CHLORIDE 103 MMOL/L (98-107); CREATININE 1.3 MG/DL (0.55-1.30); PHOSPHORUS 2.4 MG/DL (2.5-4.9); POTASSIUM 3.2 MMOL/L (3.5-5.1); SODIUM 139 MMOL/L (136-145)
[2018-02-19] MEDS: Aspirin EC 81mg tab ORAL SCH (08:26)
[2018-02-19] MEDS: Docusate 100mg cap ORAL SCH (08:26)
[2018-02-19] MEDS: Memantine 10mg tab ORAL SCH ×2 (08:26→18:33)
[2018-02-19] MEDS: Heparin 5000 units/ml inj SUBQ SCH ×2 (08:28→20:54)
[2018-02-19 12:00] VITALS: BP 134/73
--- NOTE | 2018-02-19 12:04 | Nephrology Progress Note ---
Assessment/Plan Problem List: (1) Renal failure (ARF), acute on chronic Assessment: CKD- Nephropathy (2) CHF exacerbation (3) Type 2 diabetes mellitus (4) Dementia Assessment CHF exacerbation Renal failure- likely diabetic Type 2 diabetes mellitus, proteinuria Dementia Plan Plan: K and Mag supplement Slow hydrate- urine studies correct lytes avoid nephrotoxics Subjective ROS Limited/Unobtainable: No Constitutional: Reports: malaise Objective Objective Last 24 Hour Vital Signs Date Time Temp Pulse Resp B/P (MAP) Pulse Ox O2 Delivery O2 Flow Rate FiO2 02/19/18 08:00 98.0 94 19 133/77 96 Room Air 98.0 02/19/18 08:00 92 02/19/18 07:37 89 20 95 Nasal Cannula 3.0 32 02/19/18 07:27 Nasal Cannula 4.0 36 02/19/18 07:27 88 19 98 Nasal Cannula 4.0 36 02/19/18 07:27 98 Nasal Cannula 4.0 36 02/19/18 04:00 98.9 93 20 118/54 96 Room Air 98.9 02/19/18 04:00 92 02/19/18 01:30 90 20 99 Nasal Cannula 4.0 36 02/19/18 01:20 89 20 96 Nasal Cannula 4.0 36 02/19/18 00:00 93 02/19/18 00:00 98.4 87 20 112/70 94 Room Air 98.4 02/18/18 20:19 97 20 100 Nasal Cannula 4.0 36 02/18/18 20:00 98.2 106 20 119/56 96 Room Air 98.2 02/18/18 20:00 106 02/18/18 19:36 Nasal Cannula 4.0 36 02/18/18 19:36 92 20 98 Nasal Cannula 4.0 36 02/18/18 19:35 98 Nasal Cannula 4.0 36 02/18/18 19:31 97.5 02/18/18 18:32 97.5 02/18/18 16:00 97.5 98 20 121/60 100 Nasal Cannula 4.0 36 97.5 02/18/18 16:00 105 02/18/18 13:45 Nasal Cannula 02/18/18 13:45 Nasal Cannula Intake and Output 02/18/18 02/19/18 19:00 07:00 Intake Total 450 ml 300 ml Balance 450 ml 300 ml Intake Oral 400 ml IV Total 50 ml 300 ml # Voids 3 6 # Bowel Movements 2 1 Laboratory Tests 02/19/18 06:55: White Blood Count 8.3, Red Blood Count 4.30L, Hemoglobin 13.4L, Hematocrit 39.2L , Mean Corpuscular Volume 91, Mean Corpuscular Hemoglobin 31.3H, Mean Corpuscular Hemoglobin Concent 34.3, Red Cell Distribution Width 11.4L, Platelet Count 142L, Mean Platelet Volume 7.4, Neutrophils (%) (Auto) 72.7, Lymphocytes (%) (Auto) 15.2L, Monocytes (%) (Auto) 8.3, Eosinophils (%) (Auto) 3.1H, Basophils (%) (Auto) 0.6, Sodium Level 139, Potassium Level 3.2L, Chloride Level 103, Carbon Dioxide Level 30, Anion Gap 6, Blood Urea Nitrogen 22H, Creatinine 1.3, Estimat Glomerular Filtration Rate , Glucose Level 164H, Uric Acid 7.4H, Calcium Level 8.7, Phosphorus Level 2.4L, Magnesium Level 1.5L, Total Bilirubin 0.7, Aspartate Amino Transf (AST/SGOT) 30, Alanine Aminotransferase (ALT/SGPT) 22, Alkaline Phosphatase 135H, Pro-B-Type Natriuretic Peptide 424H, Total Protein 7.3, Albumin 2.8L, Globulin 4.5, Albumin /Globulin Ratio 0.6L Height (Feet): 5 Height (Inches): 6.00 Weight (Pounds): 179 General Appearance: no apparent distress Cardiovascular: normal rate Respiratory/Chest: decreased breath sounds Abdomen: soft Objective no change MARIA ESTHER CARIAS Feb 19, 2018 12:04
[2018-02-19] MEDS: Magnesium Oxide 400mg tab ORAL SCH ×2 (13:28→18:33)
[2018-02-19] MEDS: Docusate 100mg/10ml Liq ORAL SCH ×2 (13:28→18:33)
--- NOTE | 2018-02-19 15:18 | Pulmonology Progress Note ---
Assessment/Plan Assessment/Plan ASSESSMENT: The patient is an 87-year-old male with a history of diabetes, possible chronic kidney disease, dementia, admission previously with proctitis, now presenting for respiratory illness likely viral upper respiratory infection with superimposed tracheobronchitis. He had significant bronchospasm and wheezing. There was initially concern for acute decompensated heart failure from the emergency room, but he appears euvolemic on exam. In fact, he may have a degree of prerenal azotemia. PROBLEM LIST: 1. Viral upper respiratory infection plus or minus superimposed tracheobronchitis. 2. Bronchospasm and wheezing. 3. Acute kidney injury on underlying chronic kidney disease - IMPROVED 4. Elevated BNP, but no evidence of heart failure. 5. Dementia. 6. 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 7. Diabetes. 8. 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 Optimize pulmonary hygiene/mobilize as tolerated. 2. P.r.n. O2. 3. [id number] and p.r.n. DuoNebs. 4. P.r.n. Robitussin DM. 5. Observe off antibiotics with a low threshold to start community-acquired pneumonia coverage. 6. Monitor volumes and renal function, continue gentle IV fluid hydration. 7. Repeat duplex in a few days, no need to A/C for BTK DVT 8. Aspiration precautions. 9. DVT prophylaxis with heparin subcutaneous. 10. The patient is a Full Code. Subjective Allergies: Coded Allergies: No Known Allergies (Unverified , 03/19/17) Subjective AFVSS, stable O2 needs less cough, less congestion, no wheezing, no F/C Cr better with IVF Objective Last 24 Hour Vital Signs Date Time Temp Pulse Resp B/P (MAP) Pulse Ox O2 Delivery O2 Flow Rate FiO2 02/19/18 13:23 104 21 93 Room Air 21 02/19/18 13:13 101 21 92 Room Air 21 02/19/18 12:00 95.1 86 18 134/73 93 Room Air 95.1 02/19/18 12:00 91 02/19/18 08:00 98.0 94 19 133/77 96 Room Air 98.0 02/19/18 08:00 92 02/19/18 07:37 89 20 95 Nasal Cannula 3.0 32 02/19/18 07:27 Nasal Cannula 4.0 36 02/19/18 07:27 88 19 98 Nasal Cannula 4.0 36 02/19/18 07:27 98 Nasal Cannula 4.0 36 02/19/18 04:00 98.9 93 20 118/54 96 Room Air 98.9 02/19/18 04:00 92 02/19/18 01:30 90 20 99 Nasal Cannula 4.0 36 02/19/18 01:20 89 20 96 Nasal Cannula 4.0 36 02/19/18 00:00 93 02/19/18 00:00 98.4 87 20 112/70 94 Room Air 98.4 02/18/18 20:19 97 20 100 Nasal Cannula 4.0 36 02/18/18 20:00 98.2 106 20 119/56 96 Room Air 98.2 02/18/18 20:00 106 02/18/18 19:36 Nasal Cannula 4.0 36 02/18/18 19:36 92 20 98 Nasal Cannula 4.0 36 02/18/18 19:35 98 Nasal Cannula 4.0 36 02/18/18 19:31 97.5 02/18/18 18:32 97.5 02/18/18 16:00 97.5 98 20 121/60 100 Nasal Cannula 4.0 36 97.5 02/18/18 16:00 105 Intake and Output 02/18/18 02/19/18 18:59 06:59 Intake Total 450 ml 350 ml Balance 450 ml 350 ml Intake Oral 400 ml IV Total 50 ml 350 ml # Voids 3 6 # Bowel Movements 2 1 General Appearance: WD/WN, cachetic, other - confused elderly male HEENT: normocephalic, atraumatic, anicteric, mucous membranes moist Respiratory/Chest: chest wall non-tender, lungs clear, normal breath sounds, no respiratory distress, no accessory muscle use Cardiovascular: normal peripheral pulses, normal rate, regular rhythm Abdomen: normal bowel sounds, soft, non tender, no organomegaly, non distended Extremities: no cyanosis, no clubbing, no edema Microbiology Date/Time Source Procedure Growth Status 02/16/18 22:35 Sputum Gram Stain - Final Resulted 02/16/18 22:35 Sputum Sputum Culture Pending Resulted 02/16/18 15:30 Nasal Nares MRSA Culture - Final NO METHICILLIN RESISTANT STAPH AUREUS... Complete 02/16/18 15:30 Rectum VRE Culture - Final NO VANCOMYCIN RESISTANT ENTEROCOCCUS ... Complete Laboratory Tests 02/19/18 06:55: White Blood Count 8.3, Red Blood Count 4.30L, Hemoglobin 13.4L, Hematocrit 39.2L , Mean Corpuscular Volume 91, Mean Corpuscular Hemoglobin 31.3H, Mean Corpuscular Hemoglobin Concent 34.3, Red Cell Distribution Width 11.4L, Platelet Count 142L, Mean Platelet Volume 7.4, Neutrophils (%) (Auto) 72.7, Lymphocytes (%) (Auto) 15.2L, Monocytes (%) (Auto) 8.3, Eosinophils (%) (Auto) 3.1H, Basophils (%) (Auto) 0.6, Sodium Level 139, Potassium Level 3.2L, Chloride Level 103, Carbon Dioxide Level 30, Anion Gap 6, Blood Urea Nitrogen 22H, Creatinine 1.3, Estimat Glomerular Filtration Rate , Glucose Level 164H, Uric Acid 7.4H, Calcium Level 8.7, Phosphorus Level 2.4L, Magnesium Level 1.5L, Total Bilirubin 0.7, Aspartate Amino Transf (AST/SGOT) 30, Alanine Aminotransferase (ALT/SGPT) 22, Alkaline Phosphatase 135H, Pro-B-Type Natriuretic Peptide 424H, Total Protein 7.3, Albumin 2.8L, Globulin 4.5, Albumin /Globulin Ratio 0.6L Current Medications Medications (Trade) Dose Ordered Sig/Filemon Route PRN Reason Start Time Stop Time Status Last Admin Dose Admin Acetaminophen (Tylenol) 650 mg Q4H PRN ORAL Mild Pain/Temp > 100.5 02/16/18 18:30 03/18/18 18:29 02/18/18 18:32 Albuterol/ Ipratropium (Albuterol/ Ipratropium) 3 ml Q4H PRN HHN Shortness of Breath 02/16/18 21:45 02/21/18 21:44 Albuterol/ Ipratropium (Albuterol/ Ipratropium) 3 ml Q6HRT HHN 02/17/18 01:00 02/22/18 00:59 02/19/18 13:12 Aspirin (Ecotrin) 81 mg DAILY ORAL 02/17/18 09:00 03/19/18 08:59 02/19/18 08:26 Bisacodyl (Dulcolax) 10 mg DAILYPRN PRN ORAL Constipation 02/16/18 18:45 03/18/18 17:44 Dextrose (Dextrose 50%) STAT PRN IV Hypoglycemia 02/16/18 22:15 03/18/18 22:14 Dextrose (Dextrose 50%) 25 ml STAT PRN IV Hypoglycemia 02/16/18 22:15 03/18/18 22:14 Docusate Sodium (Colace) 100 mg TID ORAL 02/19/18 13:00 03/18/18 17:59 02/19/18 13:28 Donepezil HCl (Aricept) 10 mg BEDTIME ORAL 02/16/18 21:00 03/18/18 20:59 02/18/18 21:21 Guaifenesin/ Dextromethorphan (Robitussin DM Syrup) 10 ml Q4H PRN ORAL For Cough 02/16/18 20:30 03/18/18 20:29 02/18/18 06:15 Heparin Sodium (Porcine) (Heparin 5000 units/ml) 5,000 units EVERY 12 HOURS SUBQ 02/17/18 09:00 03/19/18 08:59 02/19/18 08:28 Insulin Aspart (NovoLOG) BEFORE MEALS AND HS SUBQ 02/17/18 06:30 03/19/18 06:29 02/19/18 11:55 Lansoprazole (Prevacid) 30 mg DAILY ORAL 02/16/18 18:00 03/18/18 17:59 02/19/18 08:26 Magnesium Oxide (Mag-Ox 400mg) 400 mg THREE TIMES A DAY ORAL 02/19/18 13:00 03/21/18 12:59 02/19/18 13:28 Memantine (Namenda) 10 mg BID ORAL 02/17/18 09:00 03/19/18 08:59 02/19/18 08:26 Potassium Chloride (K-Dur) 40 meq DAILY ORAL 02/19/18 11:00 03/21/18 10:59 02/19/18 11:54 Sodium Chloride 1,000 ml @ 50 mls/hr Q20H IV 02/16/18 18:00 03/18/18 17:59 02/19/18 06:22 Tamsulosin HCl (Flomax) 0.4 mg BEDTIME ORAL 02/16/18 21:00 03/18/18 20:59 02/18/18 21:21 Trazodone HCl (Desyrel) 25 mg BEDTIME ORAL 02/16/18 21:00 03/18/18 20:59 02/18/18 21:21 LANDON PAYNE M.D. Feb 19, 2018 15:18
[2018-02-19 16:00] VITALS: BP 136/92
[2018-02-19 20:00] VITALS: BP 122/90
--- NOTE | 2018-02-19 20:26 | General Progress Note ---
Assessment/Plan Problem List: (1) Dementia ICD Codes: F03.90 - Unspecified dementia without behavioral disturbance SNOMED: 00810612 (2) Type 2 diabetes mellitus ICD Codes: E11.9 - Type 2 diabetes mellitus without complications SNOMED: 39533509 (3) CHF exacerbation ICD Codes: I50.9 - Heart failure, unspecified SNOMED: 31945415 Status: stable Assessment/Plan agitated consulted psychitrist dc in am improving r/o cva reviewed chart and labs Subjective ROS Limited/Unobtainable: Yes Constitutional: Reports: no symptoms Allergies: Coded Allergies: No Known Allergies (Unverified , 03/19/17) Objective Last 24 Hour Vital Signs Date Time Temp Pulse Resp B/P (MAP) Pulse Ox O2 Delivery O2 Flow Rate FiO2 02/19/18 16:00 98.1 77 18 136/92 93 Room Air 98.1 02/19/18 16:00 95 02/19/18 13:23 104 21 93 Room Air 21 02/19/18 13:13 101 21 92 Room Air 21 02/19/18 12:00 95.1 86 18 134/73 93 Room Air 95.1 02/19/18 12:00 91 02/19/18 08:00 98.0 94 19 133/77 96 Room Air 98.0 02/19/18 08:00 92 02/19/18 07:37 89 20 95 Nasal Cannula 3.0 32 02/19/18 07:27 Nasal Cannula 4.0 36 02/19/18 07:27 88 19 98 Nasal Cannula 4.0 36 02/19/18 07:27 98 Nasal Cannula 4.0 36 02/19/18 04:00 98.9 93 20 118/54 96 Room Air 98.9 02/19/18 04:00 92 02/19/18 01:30 90 20 99 Nasal Cannula 4.0 36 02/19/18 01:20 89 20 96 Nasal Cannula 4.0 36 02/19/18 00:00 93 02/19/18 00:00 98.4 87 20 112/70 94 Room Air 98.4 Intake and Output 02/18/18 02/19/18 19:00 07:00 Intake Total 450 ml 300 ml Balance 450 ml 300 ml Intake Oral 400 ml IV Total 50 ml 300 ml # Voids 3 6 # Bowel Movements 2 1 Laboratory Tests 02/19/18 06:55: White Blood Count 8.3, Red Blood Count 4.30L, Hemoglobin 13.4L, Hematocrit 39.2L , Mean Corpuscular Volume 91, Mean Corpuscular Hemoglobin 31.3H, Mean Corpuscular Hemoglobin Concent 34.3, Red Cell Distribution Width 11.4L, Platelet Count 142L, Mean Platelet Volume 7.4, Neutrophils (%) (Auto) 72.7, Lymphocytes (%) (Auto) 15.2L, Monocytes (%) (Auto) 8.3, Eosinophils (%) (Auto) 3.1H, Basophils (%) (Auto) 0.6, Sodium Level 139, Potassium Level 3.2L, Chloride Level 103, Carbon Dioxide Level 30, Anion Gap 6, Blood Urea Nitrogen 22H, Creatinine 1.3, Estimat Glomerular Filtration Rate , Glucose Level 164H, Uric Acid 7.4H, Calcium Level 8.7, Phosphorus Level 2.4L, Magnesium Level 1.5L, Total Bilirubin 0.7, Aspartate Amino Transf (AST/SGOT) 30, Alanine Aminotransferase (ALT/SGPT) 22, Alkaline Phosphatase 135H, Pro-B-Type Natriuretic Peptide 424H, Total Protein 7.3, Albumin 2.8L, Globulin 4.5, Albumin /Globulin Ratio 0.6L Height (Feet): 5 Height (Inches): 6.00 Weight (Pounds): 179 Neck: supple Cardiovascular: normal rate Respiratory/Chest: lungs clear Abdomen: soft Gurmeet Elizabeth MD Feb 19, 2018 20:26
[2018-02-19] MEDS: TraZODone HCl 25 mg tablet ORAL SCH (20:48)
[2018-02-19] MEDS: Donepezil 10mg tab ORAL SCH (20:48)
[2018-02-19] MEDS: Guaifenesin/DM 10ml syrup ORAL PRN (20:48)
[2018-02-19] MEDS: Tamsulosin 0.4mg cap ORAL SCH (20:48)
--- NOTE | 2018-02-19 23:08 | General Progress Note ---
Assessment/Plan Status: stable, progressing Assessment/Plan encephalopathy dementia with behavioral disturbance zyprexa thorazine prn Subjective Date patient seen: Feb 19, 2018 Allergies: Coded Allergies: No Known Allergies (Unverified , 03/19/17) Objective Last 24 Hour Vital Signs Date Time Temp Pulse Resp B/P (MAP) Pulse Ox O2 Delivery O2 Flow Rate FiO2 02/19/18 20:35 117 20 97 Nasal Cannula 4.0 36 02/19/18 20:25 92 Room Air 21 02/19/18 20:25 Nasal Cannula 4.0 36 02/19/18 20:25 114 20 92 Room Air 21 02/19/18 20:00 98.2 105 19 122/90 90 Nasal Cannula 2.0 98.2 02/19/18 20:00 105 02/19/18 16:00 98.1 77 18 136/92 93 Room Air 98.1 02/19/18 16:00 95 02/19/18 13:23 104 21 93 Room Air 21 02/19/18 13:13 101 21 92 Room Air 21 02/19/18 12:00 95.1 86 18 134/73 93 Room Air 95.1 02/19/18 12:00 91 02/19/18 08:00 98.0 94 19 133/77 96 Room Air 98.0 02/19/18 08:00 92 02/19/18 07:37 89 20 95 Nasal Cannula 3.0 32 02/19/18 07:27 Nasal Cannula 4.0 36 02/19/18 07:27 88 19 98 Nasal Cannula 4.0 36 02/19/18 07:27 98 Nasal Cannula 4.0 36 02/19/18 04:00 98.9 93 20 118/54 96 Room Air 98.9 02/19/18 04:00 92 02/19/18 01:30 90 20 99 Nasal Cannula 4.0 36 02/19/18 01:20 89 20 96 Nasal Cannula 4.0 36 02/19/18 00:00 93 02/19/18 00:00 98.4 87 20 112/70 94 Room Air 98.4 Intake and Output 02/18/18 02/19/18 19:00 07:00 Intake Total 450 ml 300 ml Balance 450 ml 300 ml Intake Oral 400 ml IV Total 50 ml 300 ml # Voids 3 6 # Bowel Movements 2 1 Laboratory Tests 02/19/18 06:55: White Blood Count 8.3, Red Blood Count 4.30L, Hemoglobin 13.4L, Hematocrit 39.2L , Mean Corpuscular Volume 91, Mean Corpuscular Hemoglobin 31.3H, Mean Corpuscular Hemoglobin Concent 34.3, Red Cell Distribution Width 11.4L, Platelet Count 142L, Mean Platelet Volume 7.4, Neutrophils (%) (Auto) 72.7, Lymphocytes (%) (Auto) 15.2L, Monocytes (%) (Auto) 8.3, Eosinophils (%) (Auto) 3.1H, Basophils (%) (Auto) 0.6, Sodium Level 139, Potassium Level 3.2L, Chloride Level 103, Carbon Dioxide Level 30, Anion Gap 6, Blood Urea Nitrogen 22H, Creatinine 1.3, Estimat Glomerular Filtration Rate , Glucose Level 164H, Uric Acid 7.4H, Calcium Level 8.7, Phosphorus Level 2.4L, Magnesium Level 1.5L, Total Bilirubin 0.7, Aspartate Amino Transf (AST/SGOT) 30, Alanine Aminotransferase (ALT/SGPT) 22, Alkaline Phosphatase 135H, Pro-B-Type Natriuretic Peptide 424H, Total Protein 7.3, Albumin 2.8L, Globulin 4.5, Albumin /Globulin Ratio 0.6L Height (Feet): 5 Height (Inches): 6.00 Weight (Pounds): 179 Melly Estrada M.D. Feb 19, 2018 23:08
--- NOTE | 2018-02-19 23:08 | Consultation ---
History of Present Illness General Date patient seen: Feb 18, 2018 Chief Complaint: Dyspnea/Respdistress Present Illness HPI 87-year-old male with a history of dementia, proctitis in the past, and diabetes, who presented with several days of shortness of breath, cough, and congestion from a facility. the pt was confused and agitated the pt has waxing and waning of consciousness Allergies: Coded Allergies: No Known Allergies (Unverified , 03/19/17) Medication History Scheduled Aspirin* (Aspir 81*), 81 MG ORAL DAILY, (Reported) Docusate Sodium* (Colace*), 100 MG ORAL DAILY, (Reported) Donepezil Hcl* (Donepezil Hcl*), 10 MG ORAL BEDTIME, (Reported) Ferrous Sulfate* (Ferrous Sulfate*), 325 MG ORAL BID, (Reported) Memantine Hcl* (Namenda*), 10 MG ORAL TWICE A DAY, (Reported) Mesalamine (Asacol Hd), 1,600 MG ORAL THREE TIMES A DAY Mesalamine (Mesalamine), 4 GM RECTAL Q12HR Trazodone Hcl* (Desyrel*), 25 MG ORAL BEDTIME, (Reported) Scheduled PRN Acetaminophen (Tylenol), 650 MG ORAL Q6H PRN for Prn Pain/Headache/Temp > 101, ( Reported) Bisacodyl* (Dulcolax*), 10 MG RECTAL DAILY PRN for Constipation, (Reported) Magnesium Hydroxide* (Milk Of Magnesia*), 30 ML ORAL DAILY PRN for Constipation, (Reported) Na Phos,M-B/Na Phos,Di-Ba* (Fleet Enema*), 133 ML RECTAL EVERY OTHER DAY PRN for Constipation, (Reported) Miscellaneous Medications Guaifenesin/Dextromethorphan (Robitussin Cough-Chest Dm Liq), 100 ML PO, ( Reported) Guaifenesin/Dextromethorphan (Robitussin Cough-Chest Dm Liq), 100 ML PO, ( Reported) Melatonin (Melatonin), 3 MG PO, (Reported) Patient History Limited by: medical condition History Provided By: Patient, Significant Other, PMD Healthcare decision maker In file Resuscitation status Full Code Advanced Directive on File No Past Medical/Surgical History Past Medical/Surgical History: (1) Dementia (2) Type 2 diabetes mellitus (3) CHF exacerbation (4) Renal failure (ARF), acute on chronic Review of Systems Psychiatric: Reports: prior hx, anxiety, depressed feelings, emotional problems Physical Exam General Appearance: no apparent distress, alert, confused, agitated Last 24 Hour Vital Signs Date Time Temp Pulse Resp B/P (MAP) Pulse Ox O2 Delivery O2 Flow Rate FiO2 02/19/18 20:35 117 20 97 Nasal Cannula 4.0 36 02/19/18 20:25 92 Room Air 21 02/19/18 20:25 Nasal Cannula 4.0 36 02/19/18 20:25 114 20 92 Room Air 21 02/19/18 20:00 98.2 105 19 122/90 90 Nasal Cannula 2.0 98.2 02/19/18 20:00 105 02/19/18 16:00 98.1 77 18 136/92 93 Room Air 98.1 02/19/18 16:00 95 02/19/18 13:23 104 21 93 Room Air 21 02/19/18 13:13 101 21 92 Room Air 21 02/19/18 12:00 95.1 86 18 134/73 93 Room Air 95.1 02/19/18 12:00 91 02/19/18 08:00 98.0 94 19 133/77 96 Room Air 98.0 02/19/18 08:00 92 02/19/18 07:37 89 20 95 Nasal Cannula 3.0 32 02/19/18 07:27 Nasal Cannula 4.0 36 02/19/18 07:27 88 19 98 Nasal Cannula 4.0 36 02/19/18 07:27 98 Nasal Cannula 4.0 36 02/19/18 04:00 98.9 93 20 118/54 96 Room Air 98.9 02/19/18 04:00 92 02/19/18 01:30 90 20 99 Nasal Cannula 4.0 36 02/19/18 01:20 89 20 96 Nasal Cannula 4.0 36 02/19/18 00:00 93 02/19/18 00:00 98.4 87 20 112/70 94 Room Air 98.4 Intake and Output 02/18/18 02/19/18 19:00 07:00 Intake Total 450 ml 300 ml Balance 450 ml 300 ml Intake Oral 400 ml IV Total 50 ml 300 ml # Voids 3 6 # Bowel Movements 2 1 Laboratory Tests Test 02/19/18 06:55 White Blood Count 8.3 K/UL (4.8-10.8) Red Blood Count 4.30 M/UL (4.70-6.10) L Hemoglobin 13.4 G/DL (14.2-18.0) L Hematocrit 39.2 % (42.0-52.0) L Mean Corpuscular Volume 91 FL (80-99) Mean Corpuscular Hemoglobin 31.3 PG (27.0-31.0) H Mean Corpuscular Hemoglobin Concent 34.3 G/DL (32.0-36.0) Red Cell Distribution Width 11.4 % (11.6-14.8) L Platelet Count 142 K/UL (150-450) L Mean Platelet Volume 7.4 FL (6.5-10.1) Neutrophils (%) (Auto) 72.7 % (45.0-75.0) Lymphocytes (%) (Auto) 15.2 % (20.0-45.0) L Monocytes (%) (Auto) 8.3 % (1.0-10.0) Eosinophils (%) (Auto) 3.1 % (0.0-3.0) H Basophils (%) (Auto) 0.6 % (0.0-2.0) Sodium Level 139 MMOL/L (136-145) Potassium Level 3.2 MMOL/L (3.5-5.1) L Chloride Level 103 MMOL/L (98-107) Carbon Dioxide Level 30 MMOL/L (21-32) Anion Gap 6 mmol/L (5-15) Blood Urea Nitrogen 22 mg/dL (7-18) H Creatinine 1.3 MG/DL (0.55-1.30) Estimat Glomerular Filtration Rate mL/min (>60) Glucose Level 164 MG/DL (74-106) H Uric Acid 7.4 MG/DL (2.6-7.2) H Calcium Level 8.7 MG/DL (8.5-10.1) Phosphorus Level 2.4 MG/DL (2.5-4.9) L Magnesium Level 1.5 MG/DL (1.8-2.4) L Total Bilirubin 0.7 MG/DL (0.2-1.0) Aspartate Amino Transf (AST/SGOT) 30 U/L (15-37) Alanine Aminotransferase (ALT/SGPT) 22 U/L (12-78) Alkaline Phosphatase 135 U/L (46-116) H Pro-B-Type Natriuretic Peptide 424 pg/mL (0-125) H Total Protein 7.3 G/DL (6.4-8.2) Albumin 2.8 G/DL (3.4-5.0) L Globulin 4.5 g/dL Albumin/Globulin Ratio 0.6 (1.0-2.7) L Height (Feet): 5 Height (Inches): 6.00 Weight (Pounds): 179 Medications Current Medications Medications (Trade) Dose Ordered Sig/Filemon Route PRN Reason Start Time Stop Time Status Last Admin Dose Admin Acetaminophen (Tylenol) 650 mg Q4H PRN ORAL Mild Pain/Temp > 100.5 02/16/18 18:30 03/18/18 18:29 02/18/18 18:32 Albuterol/ Ipratropium (Albuterol/ Ipratropium) 3 ml Q4H PRN HHN Shortness of Breath 02/16/18 21:45 02/21/18 21:44 Albuterol/ Ipratropium (Albuterol/ Ipratropium) 3 ml Q6HRT HHN 02/17/18 01:00 02/22/18 00:59 02/19/18 20:27 Aspirin (Ecotrin) 81 mg DAILY ORAL 02/17/18 09:00 03/19/18 08:59 02/19/18 08:26 Bisacodyl (Dulcolax) 10 mg DAILYPRN PRN ORAL Constipation 02/16/18 18:45 03/18/18 17:44 Chlorpromazine (Thorazine) 25 mg Q6H PRN IM Agitation 02/19/18 21:00 03/21/18 20:59 Dextrose (Dextrose 50%) STAT PRN IV Hypoglycemia 02/16/18 22:15 03/18/18 22:14 Dextrose (Dextrose 50%) 25 ml STAT PRN IV Hypoglycemia 02/16/18 22:15 03/18/18 22:14 Docusate Sodium (Colace) 100 mg TID ORAL 02/19/18 13:00 03/18/18 17:59 02/19/18 18:33 Donepezil HCl (Aricept) 10 mg BEDTIME ORAL 02/16/18 21:00 03/18/18 20:59 02/19/18 20:48 Guaifenesin/ Dextromethorphan (Robitussin DM Syrup) 10 ml Q4H PRN ORAL For Cough 02/16/18 20:30 03/18/18 20:29 02/19/18 20:48 Heparin Sodium (Porcine) (Heparin 5000 units/ml) 5,000 units EVERY 12 HOURS SUBQ 02/17/18 09:00 03/19/18 08:59 02/19/18 20:54 Insulin Aspart (NovoLOG) BEFORE MEALS AND HS SUBQ 02/17/18 06:30 03/19/18 06:29 02/19/18 21:14 Lansoprazole (Prevacid) 30 mg DAILY ORAL 02/16/18 18:00 03/18/18 17:59 02/19/18 08:26 Magnesium Oxide (Mag-Ox 400mg) 400 mg THREE TIMES A DAY ORAL 02/19/18 13:00 03/21/18 12:59 02/19/18 18:33 Memantine (Namenda) 10 mg BID ORAL 02/17/18 09:00 03/19/18 08:59 02/19/18 18:33 Potassium Chloride (K-Dur) 40 meq DAILY ORAL 02/19/18 11:00 03/21/18 10:59 02/19/18 11:54 Sodium Chloride 1,000 ml @ 50 mls/hr Q20H IV 02/16/18 18:00 03/18/18 17:59 02/19/18 06:22 Tamsulosin HCl (Flomax) 0.4 mg BEDTIME ORAL 02/16/18 21:00 03/18/18 20:59 02/19/18 20:48 Trazodone HCl (Desyrel) 25 mg BEDTIME ORAL 02/16/18 21:00 03/18/18 20:59 02/19/18 20:48 Assessment/Plan Assessment/Plan encephalopathy dementia with behavioral disturbance stacyrexrory french prn Melly Estrada M.D. Feb 19, 2018 23:08
[2018-02-20] VITALS: BP 135/54
[2018-02-20] MEDS: Albuterol/Ipratropium 3ml neb HHN SCH ×4 (02:57→20:51)
[2018-02-20] MEDS: NovoLOG Insulin Flexpen SUBQ SCH ×4 (06:37→21:28)
--- NOTE | 2018-02-20 07:05 | Wound Care Consultation ---
Wound Assessment Wound Assessment #1: Wound Number: 1 Wound Present on Admission: Yes New Wound: No Status Change of Wound: No Wound Location Body Site Modif: right Wound Location Body Site: heel Wound Type: pressure ulcer Crystal Test: Does not Crystal Pressure Ulcer Stage: I Wound Length: 3.0 Wound Width: 4.5 Percent of Wound [place]/Red: 100 Wound Drainage Amount: None Wound Drainage Odor: None/Absent Tissue Surrounding Wound: Erythemic Wound General Appearance: Reddened Wound Assessment #2: Wound Number: 2 Wound Present on Admission: Yes New Wound: No Status Change of Wound: No Wound Location Body Site Modif: right, lower, anterior Wound Location Body Site: leg Wound Type: scab Crystal Test: Does not Crystal Wound Length: 1.0 Wound Width: 1.0 Wound Depth: utd Percent of Wound Bed Yellow/Wh: 100 - dry Wound Drainage Amount: None Wound Drainage Odor: None/Absent Tissue Surrounding Wound: Intact Wound Assessment #3: Wound Number: 3 Wound Present on Admission: Yes New Wound: No Status Change of Wound: No Wound Location Body Site Modif: right Wound Location Body Site: elbow Crystal Test: Does not Crystal Traumatic Injury Wounds: Skin Tear Wound Thickness: Partial Thickness Wound Length: 2.0 Wound Width: 2.0 Percent of Wound [place]/Red: 100 Wound Drainage Amount: None Wound Drainage Odor: None/Absent Tissue Surrounding Wound: Intact Wound General Appearance: Reddened Wound Comment #1 Right elbow skin tear #2 Right anterior leg with dry scab #3 Right heel stage I pressure ulcer #4 Rashes on lower extremity Recommendation -F/u with MD regarding the rashes -Local wound per protocol for skin tear on right elbow and stage I pressure ulcer on the right heel -Optimize nutrition -Keep clean and dry -Turn and reposition -Offload both heels -Heel protector on both heels -Assess and f/u accordingly for any changes JARRELL CASTILLO RN Feb 20, 2018 07:05
[2018-02-20 07:56] VITALS: BP 135/54
[2018-02-20 08:00] VITALS: BP 138/65
--- NOTE | 2018-02-20 08:16 | Pulmonology Progress Note ---
Assessment/Plan Assessment/Plan ASSESSMENT: The patient is an 87-year-old male with a history of diabetes, possible chronic kidney disease, dementia, admission previously with proctitis, now presenting for respiratory illness likely viral upper respiratory infection with superimposed tracheobronchitis. He had significant bronchospasm and wheezing. There was initially concern for acute decompensated heart failure from the emergency room, but he appears euvolemic on exam. In fact, he may have a degree of prerenal azotemia. PROBLEM LIST: 1. Viral upper respiratory infection plus or minus superimposed tracheobronchitis. (H flu in sputum) 2. Bronchospasm and wheezing. 3. Acute kidney injury on underlying chronic kidney disease - IMPROVED 4. Elevated BNP, but no evidence of heart failure. 5. Dementia. 6. 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 7. Diabetes. 8. 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 -P.r.n. O2. -Ahghs-dzp-xlcxz and p.r.n. DuoNebs. -P.r.n. Robitussin DM. -Start PO Levaquin for CAP -Monitor volumes and renal function, continue gentle IV fluid hydration. -Repeat duplex, no need to A/C for BTK DVT -Aspiration precautions. -DVT prophylaxis with heparin subcutaneous. -The patient is a Full Code. Subjective Allergies: Coded Allergies: No Known Allergies (Unverified , 03/19/17) Subjective AFVSS, inc O2 needs ON,this am 95% onRA H flu in sputum + cough, less congestion, no wheezing, no F/C Objective Last 24 Hour Vital Signs Date Time Temp Pulse Resp B/P (MAP) Pulse Ox O2 Delivery O2 Flow Rate FiO2 02/20/18 08:03 97 Venturi Mask 6.0 35 02/20/18 08:03 88 18 97 Venturi Mask 6.0 35 02/20/18 08:03 Venturi Mask 6.0 35 02/20/18 07:56 99.5 100 20 135/54 95 Nasal Cannula 2.0 99.5 02/20/18 04:00 97 02/20/18 03:04 96 20 95 Venturi Mask 8.0 40 02/20/18 02:55 97 20 91 Nasal Cannula 4.0 36 02/20/18 00:00 97 4/13/18 00:00 99.5 100 20 135/54 95 Nasal Cannula 2.0 99.5 02/19/18 20:35 117 20 97 Nasal Cannula 4.0 36 02/19/18 20:25 92 Room Air 21 02/19/18 20:25 Nasal Cannula 4.0 36 02/19/18 20:25 114 20 92 Room Air 21 02/19/18 20:00 98.2 105 19 122/90 90 Nasal Cannula 2.0 98.2 02/19/18 20:00 105 02/19/18 16:00 98.1 77 18 136/92 93 Room Air 98.1 02/19/18 16:00 95 02/19/18 13:23 104 21 93 Room Air 21 02/19/18 13:13 101 21 92 Room Air 21 02/19/18 12:00 95.1 86 18 134/73 93 Room Air 95.1 02/19/18 12:00 91 Intake and Output 02/19/18 02/20/18 19:00 07:00 Intake Total 600 ml Balance 600 ml IV Total 600 ml # Voids 4 5 # Bowel Movements 1 2 General Appearance: no acute distress, cachetic HEENT: normocephalic, atraumatic, anicteric, mucous membranes moist Respiratory/Chest: rhonchi Cardiovascular: normal peripheral pulses, normal rate, regular rhythm, regularly irregular Abdomen: normal bowel sounds, soft, non tender, no organomegaly, non distended Extremities: no cyanosis, no clubbing, no edema Current Medications Medications (Trade) Dose Ordered Sig/Filemon Route PRN Reason Start Time Stop Time Status Last Admin Dose Admin Acetaminophen (Tylenol) 650 mg Q4H PRN ORAL Mild Pain/Temp > 100.5 02/16/18 18:30 03/18/18 18:29 02/18/18 18:32 Albuterol/ Ipratropium (Albuterol/ Ipratropium) 3 ml Q4H PRN HHN Shortness of Breath 02/16/18 21:45 02/21/18 21:44 Albuterol/ Ipratropium (Albuterol/ Ipratropium) 3 ml Q6HRT HHN 02/17/18 01:00 02/22/18 00:59 02/20/18 08:03 Aspirin (Ecotrin) 81 mg DAILY ORAL 02/17/18 09:00 03/19/18 08:59 02/19/18 08:26 Bisacodyl (Dulcolax) 10 mg DAILYPRN PRN ORAL Constipation 02/16/18 18:45 03/18/18 17:44 Chlorpromazine (Thorazine) 25 mg Q6H PRN IM Agitation 02/19/18 21:00 03/21/18 20:59 Dextrose (Dextrose 50%) STAT PRN IV Hypoglycemia 02/16/18 22:15 03/18/18 22:14 Dextrose (Dextrose 50%) 25 ml STAT PRN IV Hypoglycemia 02/16/18 22:15 03/18/18 22:14 Docusate Sodium (Colace) 100 mg TID ORAL 02/19/18 13:00 03/18/18 17:59 02/19/18 18:33 Guaifenesin/ Dextromethorphan (Robitussin DM Syrup) 10 ml Q4H PRN ORAL For Cough 02/16/18 20:30 03/18/18 20:29 02/19/18 20:48 Heparin Sodium (Porcine) (Heparin 5000 units/ml) 5,000 units EVERY 12 HOURS SUBQ 02/17/18 09:00 03/19/18 08:59 02/19/18 20:54 Insulin Aspart (NovoLOG) BEFORE MEALS AND HS SUBQ 02/17/18 06:30 03/19/18 06:29 02/20/18 06:37 Lansoprazole (Prevacid) 30 mg DAILY ORAL 02/16/18 18:00 03/18/18 17:59 02/19/18 08:26 Magnesium Oxide (Mag-Ox 400mg) 400 mg THREE TIMES A DAY ORAL 02/19/18 13:00 03/21/18 12:59 02/19/18 18:33 Olanzapine (ZyPREXA) 2.5 mg BID ORAL 02/20/18 09:00 03/22/18 08:59 Potassium Chloride (K-Dur) 40 meq DAILY ORAL 02/19/18 11:00 03/21/18 10:59 02/19/18 11:54 Sodium Chloride 1,000 ml @ 50 mls/hr Q20H IV 02/16/18 18:00 03/18/18 17:59 02/19/18 06:22 Tamsulosin HCl (Flomax) 0.4 mg BEDTIME ORAL 02/16/18 21:00 03/18/18 20:59 02/19/18 20:48 Trazodone HCl (Desyrel) 25 mg BEDTIME ORAL 02/16/18 21:00 03/18/18 20:59 02/19/18 20:48 LANDON PAYNE M.D. Feb 20, 2018 08:16
[2018-02-20] MEDS: Docusate 100mg/10ml Liq ORAL SCH ×3 (08:43→17:05)
[2018-02-20] MEDS: OLANZapine 2.5mg tab ORAL SCH ×2 (08:43→17:35)
[2018-02-20] MEDS: Aspirin EC 81mg tab ORAL SCH (08:43)
[2018-02-20] MEDS: Magnesium Oxide 400mg tab ORAL SCH ×3 (08:43→17:04)
[2018-02-20 09:32] LABS: BASOPHILS % (AUTO) 0.7 % (0.0-2.0); EOSINOPHILS % (AUTO) 2.5 % (0.0-3.0); HEMATOCRIT 42.7 % (42.0-52.0); HEMOGLOBIN 14.2 G/DL (14.2-18.0); LYMPHOCYTES % (AUTO) 20.7 % (20.0-45.0); MEAN CORPUSCULAR VOLUME 92 FL (80-99); MONOCYTES % (AUTO) 9.2 % (1.0-10.0); PLATELET COUNT 165 K/UL (150-450); RED BLOOD COUNT 4.64 M/UL (4.70-6.10); RED CELL DISTRIBUTION WIDTH 11.2 % (11.6-14.8); WHITE BLOOD COUNT 9.2 K/UL (4.8-10.8)
[2018-02-20 09:46] LABS: ANION GAP 7 mmol/L (5-15); BLOOD UREA NITROGEN 18 mg/dL (7-18); CALCIUM 8.9 MG/DL (8.5-10.1); CARBON DIOXIDE 30 MMOL/L (21-32); CHLORIDE 104 MMOL/L (98-107); CREATININE 1.2 MG/DL (0.55-1.30); POTASSIUM 3.4 MMOL/L (3.5-5.1); SODIUM 141 MMOL/L (136-145)
[2018-02-20] MEDS: cefTRIAXone 1 GM in D5W 55 ML IVPB SCH (10:18)
[2018-02-20] MEDS: Heparin 5000 units/ml inj SUBQ SCH ×2 (10:20→21:27)
--- NOTE | 2018-02-20 10:47 | Diagnostic Imaging Report ---
Indication: Cough Technique: One view of the chest Comparison: 02/16/2018 Findings: Inspiration is suboptimal. There are some atelectatic changes at the left lung base as well as areas of linear atelectasis or scarring in the left lung periphery. The heart size is upper limits of normal. There are degenerative changes of the right shoulder. Contrast is seen in the colon presumably from a recent video swallowing study Impression: Hypoventilatory exam with left basilar atelectasis No definite acute process otherwise
--- NOTE | 2018-02-20 10:51 | Nephrology Progress Note ---
Assessment/Plan Problem List: (1) Renal failure (ARF), acute on chronic Assessment: CKD- Nephropathy (2) CHF exacerbation (3) Type 2 diabetes mellitus (4) Dementia Assessment CHF exacerbation Renal failure- likely diabetic Type 2 diabetes mellitus, proteinuria Dementia Plan Plan: K and Mag supplement Slow hydrate- urine studies correct lytes avoid nephrotoxics Subjective ROS Limited/Unobtainable: No Constitutional: Reports: malaise Objective Objective Last 24 Hour Vital Signs Date Time Temp Pulse Resp B/P (MAP) Pulse Ox O2 Delivery O2 Flow Rate FiO2 02/20/18 08:12 88 20 96 Venturi Mask 6.0 35 02/20/18 08:03 97 Venturi Mask 6.0 35 02/20/18 08:03 88 18 97 Venturi Mask 6.0 35 02/20/18 08:03 Venturi Mask 6.0 35 02/20/18 08:00 98.1 94 20 138/65 95 Room Air 98.1 02/20/18 08:00 86 02/20/18 07:56 99.5 100 20 135/54 95 Nasal Cannula 2.0 99.5 02/20/18 04:00 97 02/20/18 03:04 96 20 95 Venturi Mask 8.0 40 02/20/18 02:55 97 20 91 Nasal Cannula 4.0 36 02/20/18 00:00 97 02/20/18 00:00 99.5 100 20 135/54 95 Nasal Cannula 2.0 99.5 02/19/18 20:35 117 20 97 Nasal Cannula 4.0 36 02/19/18 20:25 92 Room Air 21 02/19/18 20:25 Nasal Cannula 4.0 36 02/19/18 20:25 114 20 92 Room Air 21 02/19/18 20:00 98.2 105 19 122/90 90 Nasal Cannula 2.0 98.2 02/19/18 20:00 105 02/19/18 16:00 98.1 77 18 136/92 93 Room Air 98.1 02/19/18 16:00 95 02/19/18 13:23 104 21 93 Room Air 21 02/19/18 13:13 101 21 92 Room Air 21 02/19/18 12:00 95.1 86 18 134/73 93 Room Air 95.1 02/19/18 12:00 91 Intake and Output 02/19/18 02/20/18 19:00 07:00 Intake Total 600 ml Balance 600 ml IV Total 600 ml # Voids 4 5 # Bowel Movements 1 2 Laboratory Tests 02/20/18 08:35: White Blood Count 9.2, Red Blood Count 4.64L, Hemoglobin 14.2, Hematocrit 42.7, Mean Corpuscular Volume 92, Mean Corpuscular Hemoglobin 30.5, Mean Corpuscular Hemoglobin Concent 33.2, Red Cell Distribution Width 11.2L, Platelet Count 165, Mean Platelet Volume 7.5, Neutrophils (%) (Auto) 67.0, Lymphocytes (%) (Auto) 20.7, Monocytes (%) (Auto) 9.2, Eosinophils (%) (Auto) 2.5, Basophils (%) (Auto ) 0.7, Sodium Level 141, Potassium Level 3.4L, Chloride Level 104, Carbon Dioxide Level 30, Anion Gap 7, Blood Urea Nitrogen 18, Creatinine 1.2, Estimat Glomerular Filtration Rate , Glucose Level 152H, Calcium Level 8.9 02/20/18 08:52: Arterial Blood pH 7.410, Arterial Blood Partial Pressure CO2 43.6, Arterial Blood Partial Pressure O2 52.3L, Arterial Blood HCO3 27.0H, Arterial Blood Oxygen Saturation 87.3L, Arterial Blood Base Excess 2.0, Tremaine Test Positive Height (Feet): 5 Height (Inches): 6.00 Weight (Pounds): 177 General Appearance: no apparent distress Respiratory/Chest: lungs clear Abdomen: soft Objective no change MARIA ESTHER CARIAS Feb 20, 2018 10:51
[2018-02-20 12:00] VITALS: BP 123/64
--- NOTE | 2018-02-20 12:42 | General Progress Note ---
Assessment/Plan Status: stable, progressing Assessment/Plan encephalopathy dementia with behavioral disturbance zyprexa thorazine prn Subjective Date patient seen: Feb 20, 2018 Neurologic/Psychiatric: Reports: anxiety, depressed, emotional problems Allergies: Coded Allergies: No Known Allergies (Unverified , 03/19/17) Subjective the next to bed the pt calmer the pt was confused Objective Last 24 Hour Vital Signs Date Time Temp Pulse Resp B/P (MAP) Pulse Ox O2 Delivery O2 Flow Rate FiO2 02/20/18 12:00 97.5 110 20 123/64 95 Room Air 97.5 02/20/18 08:12 88 20 96 Venturi Mask 6.0 35 02/20/18 08:03 97 Venturi Mask 6.0 35 02/20/18 08:03 88 18 97 Venturi Mask 6.0 35 02/20/18 08:03 Venturi Mask 6.0 35 02/20/18 08:00 98.1 94 20 138/65 95 Room Air 98.1 02/20/18 08:00 86 02/20/18 07:56 99.5 100 20 135/54 95 Nasal Cannula 2.0 99.5 02/20/18 04:00 97 02/20/18 03:04 96 20 95 Venturi Mask 8.0 40 02/20/18 02:55 97 20 91 Nasal Cannula 4.0 36 02/20/18 00:00 97 02/20/18 00:00 99.5 100 20 135/54 95 Nasal Cannula 2.0 99.5 02/19/18 20:35 117 20 97 Nasal Cannula 4.0 36 02/19/18 20:25 92 Room Air 21 02/19/18 20:25 Nasal Cannula 4.0 36 02/19/18 20:25 114 20 92 Room Air 21 02/19/18 20:00 98.2 105 19 122/90 90 Nasal Cannula 2.0 98.2 02/19/18 20:00 105 02/19/18 16:00 98.1 77 18 136/92 93 Room Air 98.1 02/19/18 16:00 95 02/19/18 13:23 104 21 93 Room Air 21 02/19/18 13:13 101 21 92 Room Air 21 Intake and Output 02/19/18 02/20/18 19:00 07:00 Intake Total 600 ml Balance 600 ml IV Total 600 ml # Voids 4 5 # Bowel Movements 1 2 Laboratory Tests 02/20/18 08:35: White Blood Count 9.2, Red Blood Count 4.64L, Hemoglobin 14.2, Hematocrit 42.7, Mean Corpuscular Volume 92, Mean Corpuscular Hemoglobin 30.5, Mean Corpuscular Hemoglobin Concent 33.2, Red Cell Distribution Width 11.2L, Platelet Count 165, Mean Platelet Volume 7.5, Neutrophils (%) (Auto) 67.0, Lymphocytes (%) (Auto) 20.7, Monocytes (%) (Auto) 9.2, Eosinophils (%) (Auto) 2.5, Basophils (%) (Auto ) 0.7, Sodium Level 141, Potassium Level 3.4L, Chloride Level 104, Carbon Dioxide Level 30, Anion Gap 7, Blood Urea Nitrogen 18, Creatinine 1.2, Estimat Glomerular Filtration Rate , Glucose Level 152H, Calcium Level 8.9 02/20/18 08:52: Arterial Blood pH 7.410, Arterial Blood Partial Pressure CO2 43.6, Arterial Blood Partial Pressure O2 52.3L, Arterial Blood HCO3 27.0H, Arterial Blood Oxygen Saturation 87.3L, Arterial Blood Base Excess 2.0, Tremaine Test Positive Height (Feet): 5 Height (Inches): 6.00 Weight (Pounds): 177 General Appearance: no apparent distress, alert, confused Melly Estrada M.D. Feb 20, 2018 12:42
--- NOTE | 2018-02-20 14:49 | Diagnostic Imaging Report ---
ndication: Chest pain Technique: IV administration nonionic contrast. Spiral acquisitions obtained from the lung bases to the lung apices. Multiplanar and 3-D reconstructions were generated. Total dose length product 918.18 mGycm. CTDIvol(s) 30.37 mGy. Dose reduction achieved using automated exposure control Comparison: none Findings: There is good quality opacification of the pulmonary arteries. There is some image degradation due to respiratory motion artifact, which precludes exclusion of small distal emboli, particularly at the mid and lower lungs. No definite intraluminal filling defects or other findings to suggest acute pulmonary embolus demonstrated. No evidence of thoracic aortic aneurysm or dissection. Normal caliber pulmonary arteries. No evidence of right ventricular dilatation. The lungs demonstrate scattered multiple patchy and nodular opacities. Atelectatic changes are seen at both lung bases. No pleural effusions. Scattered peripheral parenchymal calcifications are seen in the posterior medial right lung and scattered within the left upper lobe. The heart is borderline enlarged. No mediastinal or hilar mass or adenopathy. No pericardial effusion. The esophagus is unremarkable. The included portions of the thyroid are unremarkable. No axillary or chest wall mass or adenopathy. The bones demonstrate a mild wedge compression fracture deformity of the T6 vertebral body. There are degenerative spondylosis changes The included upper abdominal anatomy demonstrates mild hepatocolonic interposition, is otherwise unremarkable. Impression: Limited exam, due to image degradation from respiratory motion artifact. No gross large vessel pulmonary was demonstrated Fairly extensive bilateral nonspecific parenchymal disease, likely pneumonia versus pulmonary edema. There is also a component of atelectasis. Bilateral calcifications, indicative of old granulomatous disease, indicate there may also be a chronic component to the parenchymal changes Borderline cardiomegaly T6 vertebral body compression fracture deformity, age indeterminate. Consider MRI for better characterization if this is considered clinically relevant Degenerative spondylosis The CT scanner at [facility] is accredited by the [employer] and the scans are performed using protocols designed to limit radiation exposure to as low as reasonably achievable to attain images of sufficient resolution adequate for diagnostic evaluation.
[2018-02-20 16:00] VITALS: BP 121/65
--- NOTE | 2018-02-20 19:30 | Consultation ---
DATE OF CONSULTATION: 02/20/2018 INFECTIOUS DISEASE CONSULTATION CONSULTING PHYSICIAN: Enrike Hadley M.D. PRIMARY ATTENDING PHYSICIAN: Gurmeet Elizabeth M.D. REASON FOR CONSULT: Tracheobronchitis. HISTORY OF PRESENT ILLNESS: The patient is a 51-year-old male, admitted from a halfway facility on 02/16/2018 with cough and difficulty of breathing. The patient has baseline dementia. He is not a source of history. Most of the history obtained by the son that is sitting at bedside. PAST MEDICAL HISTORY: Significant for diabetes mellitus type 2, Alzheimer's dementia, had previous admission with proctitis and left hip replacement surgery. SOCIAL HISTORY: Originally from [place]. Single, have 11 kids, [facility] resident. REVIEW OF SYSTEMS: No fever. No chills. The patient is bedbound and cannot walk since hip surgery around one year ago. No other history obtainable. He had some chest pain this morning, that are now resolved. PHYSICAL EXAMINATION: GENERAL APPEARANCE: Looks comfortable, pain free, awake. VITAL SIGNS: Temperature 97.5 degrees, pulse 110, and blood pressure 123/64. HEAD AND NECK: [place] conjunctiva. HEART: Regular. LUNGS: Decreased sounds at expansion. ABDOMEN: Soft. Nontender. EXTREMITY: He has no edema. LABORATORY AND DIAGNOSTIC DATA: WBC 9.2, hemoglobin 14.2, hematocrit 42.7 and platelets 165,000. Sodium 141, potassium 3.4, chloride 104, bicarbonate 30, BUN 18 and creatinine 1.2. Creatinine at the time of admission was 1.5. Hemoglobin A1c was 7.8. UA was negative. ABG showed hypoxemic with PaO2 of 52.3. Blood culture x2 are negative. Influenza A and B are negative. VRE and MRSA negative. Sputum culture grew Haemophilus influenzae beta lactamase negative. Chest x-ray showed no acute process. IMPRESSION: Tracheobronchitis. Culture grew Haemophilus influenzae. The patient is hypoxemic. Package Reinspector want to rule out pulmonary emboli, has diabetes mellitus type 2, acute renal failure and Alzheimer's dementia. RECOMMENDATION: Continue with current antibiotic, ceftriaxone. At the time of discharge may be discharged with p.o. amoxicillin. At the end of my exam, I thank Dr. Elizabeth, for involving me in the care of this patient. Enrike Hadley M.D. DR: DAINA JOB#: [id number] CC: LILY
[2018-02-20 20:00] VITALS: BP 112/67
[2018-02-20] MEDS: Tamsulosin 0.4mg cap ORAL SCH (21:25)
[2018-02-20] MEDS: TraZODone HCl 25 mg tablet ORAL SCH (21:25)
--- NOTE | 2018-02-20 22:13 | General Progress Note ---
Assessment/Plan Problem List: (1) Dementia ICD Codes: F03.90 - Unspecified dementia without behavioral disturbance SNOMED: 52085722 (2) Type 2 diabetes mellitus ICD Codes: E11.9 - Type 2 diabetes mellitus without complications SNOMED: 22374651 (3) CHF exacerbation ICD Codes: I50.9 - Heart failure, unspecified SNOMED: 98548696 Status: deteriorating Assessment/Plan low grade temp hypoxic on oxygen dr do wants t okeep him overnight r/o pna consulted id Subjective Allergies: Coded Allergies: No Known Allergies (Unverified , 03/19/17) Subjective hypoxic Objective Last 24 Hour Vital Signs Date Time Temp Pulse Resp B/P (MAP) Pulse Ox O2 Delivery O2 Flow Rate FiO2 02/20/18 20:52 Venturi Mask 6.0 35 02/20/18 20:52 95 Venturi Mask 6.0 35 02/20/18 20:52 99 18 95 Venturi Mask 6.0 35 02/20/18 20:00 98.2 102 20 112/67 90 Venturi Mask 6.0 35 98.2 02/20/18 20:00 97 02/20/18 16:00 98.2 94 20 121/65 98 Venturi Mask 6.0 35 98.2 02/20/18 16:00 77 02/20/18 13:18 103 20 96 Venturi Mask 6.0 35 02/20/18 13:11 101 18 96 Venturi Mask 6.0 35 02/20/18 12:00 97.5 110 20 123/64 95 Venturi Mask 6.0 35 97.5 02/20/18 12:00 89 02/20/18 08:12 88 20 96 Venturi Mask 6.0 35 02/20/18 08:03 97 Venturi Mask 6.0 35 02/20/18 08:03 88 18 97 Venturi Mask 6.0 35 02/20/18 08:03 Venturi Mask 6.0 35 02/20/18 08:00 98.1 94 20 138/65 95 Room Air 98.1 02/20/18 08:00 86 02/20/18 07:56 99.5 100 20 135/54 95 Nasal Cannula 2.0 99.5 02/20/18 04:00 97 02/20/18 03:04 96 20 95 Venturi Mask 8.0 40 02/20/18 02:55 97 20 91 Nasal Cannula 4.0 36 02/20/18 00:00 97 02/20/18 00:00 99.5 100 20 135/54 95 Nasal Cannula 2.0 99.5 Intake and Output 02/19/18 02/20/18 19:00 07:00 Intake Total 600 ml Balance 600 ml IV Total 600 ml # Voids 4 5 # Bowel Movements 1 2 Laboratory Tests 02/20/18 08:35: White Blood Count 9.2, Red Blood Count 4.64L, Hemoglobin 14.2, Hematocrit 42.7, Mean Corpuscular Volume 92, Mean Corpuscular Hemoglobin 30.5, Mean Corpuscular Hemoglobin Concent 33.2, Red Cell Distribution Width 11.2L, Platelet Count 165, Mean Platelet Volume 7.5, Neutrophils (%) (Auto) 67.0, Lymphocytes (%) (Auto) 20.7, Monocytes (%) (Auto) 9.2, Eosinophils (%) (Auto) 2.5, Basophils (%) (Auto ) 0.7, Sodium Level 141, Potassium Level 3.4L, Chloride Level 104, Carbon Dioxide Level 30, Anion Gap 7, Blood Urea Nitrogen 18, Creatinine 1.2, Estimat Glomerular Filtration Rate , Glucose Level 152H, Calcium Level 8.9 02/20/18 08:52: Arterial Blood pH 7.410, Arterial Blood Partial Pressure CO2 43.6, Arterial Blood Partial Pressure O2 52.3L, Arterial Blood HCO3 27.0H, Arterial Blood Oxygen Saturation 87.3L, Arterial Blood Base Excess 2.0, Tremaine Test Positive Height (Feet): 5 Height (Inches): 6.00 Weight (Pounds): 177 General Appearance: confused Respiratory/Chest: rhonchi - bilaterally Gurmeet Elizabeth MD Feb 20, 2018 22:13
[2018-02-21] VITALS: BP 156/57
[2018-02-21] MEDS: Albuterol/Ipratropium 3ml neb HHN SCH ×3 (00:52→12:51)
[2018-02-21 04:00] VITALS: BP 129/61
[2018-02-21] MEDS: NovoLOG Insulin Flexpen SUBQ SCH ×4 (06:33→21:03)
[2018-02-21 08:00] VITALS: BP 127/48
--- NOTE | 2018-02-21 08:58 | Nephrology Progress Note ---
Assessment/Plan Problem List: (1) Renal failure (ARF), acute on chronic Assessment: CKD- Nephropathy (2) CHF exacerbation (3) Type 2 diabetes mellitus (4) Dementia Assessment CHF exacerbation Renal failure- likely diabetic, Cr now wnl Type 2 diabetes mellitus, proteinuria Dementia Plan Plan: No labs today K and Mag supplement as needed Slow hydrate- urine studies correct lytes avoid nephrotoxics Subjective ROS Limited/Unobtainable: No Constitutional: Reports: malaise Objective Objective Last 24 Hour Vital Signs Date Time Temp Pulse Resp B/P (MAP) Pulse Ox O2 Delivery O2 Flow Rate FiO2 02/21/18 08:00 97.5 97 20 127/48 100 97.5 02/21/18 07:32 99 20 96 Venturi Mask 6.0 35 02/21/18 07:25 95 Venturi Mask 6.0 35 02/21/18 07:25 Venturi Mask 6.0 35 02/21/18 07:24 93 18 95 Venturi Mask 6.0 35 02/21/18 04:00 98.6 109 20 129/61 91 Venturi Mask 6.0 35 98.6 02/21/18 04:00 104 02/21/18 01:00 108 20 95 Venturi Mask 6.0 35 02/21/18 00:53 102 18 94 Venturi Mask 6.0 35 02/21/18 00:00 101 02/21/18 00:00 100.4 100 20 156/57 90 Venturi Mask 6.0 35 100.4 02/20/18 21:05 99 20 96 Venturi Mask 6.0 35 02/20/18 20:52 Venturi Mask 6.0 35 02/20/18 20:52 95 Venturi Mask 6.0 35 02/20/18 20:52 99 18 95 Venturi Mask 6.0 35 02/20/18 20:00 98.2 102 20 112/67 90 Venturi Mask 6.0 35 98.2 02/20/18 20:00 97 02/20/18 16:00 98.2 94 20 121/65 98 Venturi Mask 6.0 35 98.2 02/20/18 16:00 77 02/20/18 13:18 103 20 96 Venturi Mask 6.0 35 02/20/18 13:11 101 18 96 Venturi Mask 6.0 35 02/20/18 12:00 97.5 110 20 123/64 95 Venturi Mask 6.0 35 97.5 02/20/18 12:00 89 Intake and Output 02/20/18 02/21/18 19:00 07:00 Intake Total 145 ml Balance 145 ml Intake Oral 90 ml IV Total 55 ml # Voids 3 2 Height (Feet): 5 Height (Inches): 6.00 Weight (Pounds): 175 General Appearance: no apparent distress Cardiovascular: normal rate Respiratory/Chest: decreased breath sounds Abdomen: soft Objective no change MARIA ESTHER CARIAS Feb 21, 2018 08:58
[2018-02-21] MEDS: Aspirin EC 81mg tab ORAL SCH (09:25)
[2018-02-21] MEDS: Docusate 100mg/10ml Liq ORAL SCH ×3 (09:25→17:09)
[2018-02-21] MEDS: OLANZapine 2.5mg tab ORAL SCH ×2 (09:25→17:09)
[2018-02-21] MEDS: Magnesium Oxide 400mg tab ORAL SCH ×3 (09:25→17:09)
[2018-02-21] MEDS: Heparin 5000 units/ml inj SUBQ SCH ×2 (09:27→21:03)
[2018-02-21] MEDS: cefTRIAXone 1 GM in D5W 55 ML IVPB SCH (10:58)
--- NOTE | 2018-02-21 11:01 | Infectious Diseases Prog Note ---
Assessment/Plan Assessment/Plan antibiotics : ceftriaxone A 1. hemophilus influenza pneumonia 2. renal failure improving 3. CHF 4. DM P 1. continue ceftriaxone 2. will follow up cultures Subjective ROS Limited/Unobtainable: Yes Allergies: Coded Allergies: No Known Allergies (Unverified , 03/19/17) Objective Vital Signs Last 24 Hour Vital Signs Date Time Temp Pulse Resp B/P (MAP) Pulse Ox O2 Delivery O2 Flow Rate FiO2 02/21/18 08:00 97.5 97 20 127/48 100 97.5 02/21/18 07:32 99 20 96 Venturi Mask 6.0 35 02/21/18 07:25 95 Venturi Mask 6.0 35 02/21/18 07:25 Venturi Mask 6.0 35 02/21/18 07:24 93 18 95 Venturi Mask 6.0 35 02/21/18 04:00 98.6 109 20 129/61 91 Venturi Mask 6.0 35 98.6 02/21/18 04:00 104 02/21/18 01:00 108 20 95 Venturi Mask 6.0 35 02/21/18 00:53 102 18 94 Venturi Mask 6.0 35 02/21/18 00:00 101 02/21/18 00:00 100.4 100 20 156/57 90 Venturi Mask 6.0 35 100.4 02/20/18 21:05 99 20 96 Venturi Mask 6.0 35 02/20/18 20:52 Venturi Mask 6.0 35 02/20/18 20:52 95 Venturi Mask 6.0 35 02/20/18 20:52 99 18 95 Venturi Mask 6.0 35 02/20/18 20:00 98.2 102 20 112/67 90 Venturi Mask 6.0 35 98.2 02/20/18 20:00 97 02/20/18 16:00 98.2 94 20 121/65 98 Venturi Mask 6.0 35 98.2 02/20/18 16:00 77 02/20/18 13:18 103 20 96 Venturi Mask 6.0 35 02/20/18 13:11 101 18 96 Venturi Mask 6.0 35 02/20/18 12:00 97.5 110 20 123/64 95 Venturi Mask 6.0 35 97.5 02/20/18 12:00 89 Height (Feet): 5 Height (Inches): 6.00 Weight (Pounds): 175 Respiratory/Chest: lungs clear Cardiovascular: normal rate, regular rhythm, no gallop/murmur Abdomen: soft, non tender Extremities: no edema Current Medications Medications (Trade) Dose Ordered Sig/Filemon Route PRN Reason Start Time Stop Time Status Last Admin Dose Admin Acetaminophen (Tylenol) 650 mg Q4H PRN ORAL Mild Pain/Temp > 100.5 02/16/18 18:30 03/18/18 18:29 02/18/18 18:32 Albuterol/ Ipratropium (Albuterol/ Ipratropium) 3 ml Q4H PRN HHN Shortness of Breath 02/16/18 21:45 02/21/18 21:44 Albuterol/ Ipratropium (Albuterol/ Ipratropium) 3 ml Q6HRT HHN 02/17/18 01:00 02/22/18 00:59 02/21/18 07:24 Aspirin (Ecotrin) 81 mg DAILY ORAL 02/17/18 09:00 03/19/18 08:59 02/21/18 09:25 Bisacodyl (Dulcolax) 10 mg DAILYPRN PRN ORAL Constipation 02/16/18 18:45 03/18/18 17:44 Ceftriaxone Sodium 1 gm/ Dextrose 55 ml @ 110 mls/hr Q24H IVPB 02/20/18 10:00 02/27/18 09:59 02/20/18 10:18 Chlorpromazine (Thorazine) 25 mg Q6H PRN IM Agitation 02/19/18 21:00 03/21/18 20:59 Dextrose (Dextrose 50%) STAT PRN IV Hypoglycemia 02/16/18 22:15 03/18/18 22:14 Dextrose (Dextrose 50%) 25 ml STAT PRN IV Hypoglycemia 02/16/18 22:15 03/18/18 22:14 Docusate Sodium (Colace) 100 mg TID ORAL 02/19/18 13:00 03/18/18 17:59 02/21/18 09:25 Guaifenesin/ Dextromethorphan (Robitussin DM Syrup) 10 ml Q4H PRN ORAL For Cough 02/16/18 20:30 5/9/18 20:29 02/19/18 20:48 Heparin Sodium (Porcine) (Heparin 5000 units/ml) 5,000 units EVERY 12 HOURS SUBQ 02/17/18 09:00 03/19/18 08:59 02/21/18 09:27 Insulin Aspart (NovoLOG) BEFORE MEALS AND HS SUBQ 02/17/18 06:30 03/19/18 06:29 02/21/18 06:33 Lansoprazole (Prevacid) 30 mg DAILY ORAL 02/16/18 18:00 03/18/18 17:59 02/21/18 09:25 Magnesium Oxide (Mag-Ox 400mg) 400 mg THREE TIMES A DAY ORAL 02/19/18 13:00 03/21/18 12:59 02/21/18 09:25 Olanzapine (ZyPREXA) 2.5 mg BID ORAL 02/20/18 09:00 03/22/18 08:59 02/21/18 09:25 Potassium Chloride (K-Dur) 40 meq BID ORAL 02/20/18 18:00 03/21/18 10:59 02/21/18 09:25 Tamsulosin HCl (Flomax) 0.4 mg BEDTIME ORAL 02/16/18 21:00 03/18/18 20:59 02/20/18 21:25 Trazodone HCl (Desyrel) 25 mg BEDTIME ORAL 02/16/18 21:00 03/18/18 20:59 02/20/18 21:25 ANGLE WRIGHT Feb 21, 2018 11:01
[2018-02-21 12:00] VITALS: BP 133/71
--- NOTE | 2018-02-21 13:19 | Cardiac Electrophysiology PN ---
Subjective Subjective [id number] Objective Last 24 Hour Vital Signs Date Time Temp Pulse Resp B/P (MAP) Pulse Ox O2 Delivery O2 Flow Rate FiO2 02/21/18 12:58 92 20 97 Venturi Mask 6.0 35 02/21/18 12:51 88 18 97 Venturi Mask 6.0 35 02/21/18 12:00 97.7 97 20 133/71 100 97.7 02/21/18 08:00 97.5 97 20 127/48 100 97.5 02/21/18 07:32 99 20 96 Venturi Mask 6.0 35 02/21/18 07:25 95 Venturi Mask 6.0 35 02/21/18 07:25 Venturi Mask 6.0 35 02/21/18 07:24 93 18 95 Venturi Mask 6.0 35 02/21/18 04:00 98.6 109 20 129/61 91 Venturi Mask 6.0 35 98.6 02/21/18 04:00 104 02/21/18 01:00 108 20 95 Venturi Mask 6.0 35 02/21/18 00:53 102 18 94 Venturi Mask 6.0 35 02/21/18 00:00 101 02/21/18 00:00 100.4 100 20 156/57 90 Venturi Mask 6.0 35 100.4 02/20/18 21:05 99 20 96 Venturi Mask 6.0 35 02/20/18 20:52 Venturi Mask 6.0 35 02/20/18 20:52 95 Venturi Mask 6.0 35 02/20/18 20:52 99 18 95 Venturi Mask 6.0 35 02/20/18 20:00 98.2 102 20 112/67 90 Venturi Mask 6.0 35 98.2 02/20/18 20:00 97 02/20/18 16:00 98.2 94 20 121/65 98 Venturi Mask 6.0 35 98.2 02/20/18 16:00 77 Intake and Output 02/20/18 02/21/18 19:00 07:00 Intake Total 145 ml Balance 145 ml Intake Oral 90 ml IV Total 55 ml # Voids 3 2 Kyle Reynoso MD Feb 21, 2018 13:19
[2018-02-21] MEDS: dilTIAZem HCl 30mg tab ORAL SCH ×2 (13:32→22:37)
--- NOTE | 2018-02-21 14:57 | General Progress Note ---
Assessment/Plan Problem List: (1) Dementia ICD Codes: F03.90 - Unspecified dementia without behavioral disturbance SNOMED: 06792639 (2) Type 2 diabetes mellitus ICD Codes: E11.9 - Type 2 diabetes mellitus without complications SNOMED: 67135620 (3) CHF exacerbation ICD Codes: I50.9 - Heart failure, unspecified SNOMED: 55138325 Status: progressing Assessment/Plan low grade temp hypoxic on oxygen dvt treatment per dr lagunas pna improving abx per id afebrile hypoxia improved dementia reviewed chart and labs Subjective ROS Limited/Unobtainable: Yes Allergies: Coded Allergies: No Known Allergies (Unverified , 03/19/17) Subjective hypoxic Objective Last 24 Hour Vital Signs Date Time Temp Pulse Resp B/P (MAP) Pulse Ox O2 Delivery O2 Flow Rate FiO2 02/21/18 13:32 92 133/71 02/21/18 12:58 92 20 97 Venturi Mask 6.0 35 02/21/18 12:51 88 18 97 Venturi Mask 6.0 35 02/21/18 12:00 97.7 97 20 133/71 100 97.7 02/21/18 12:00 94 02/21/18 08:00 95 02/21/18 08:00 97.5 97 20 127/48 100 97.5 02/21/18 07:32 99 20 96 Venturi Mask 6.0 35 02/21/18 07:25 95 Venturi Mask 6.0 35 02/21/18 07:25 Venturi Mask 6.0 35 02/21/18 07:24 93 18 95 Venturi Mask 6.0 35 02/21/18 04:00 98.6 109 20 129/61 91 Venturi Mask 6.0 35 98.6 02/21/18 04:00 104 02/21/18 01:00 108 20 95 Venturi Mask 6.0 35 02/21/18 00:53 102 18 94 Venturi Mask 6.0 35 02/21/18 00:00 101 02/21/18 00:00 100.4 100 20 156/57 90 Venturi Mask 6.0 35 100.4 02/20/18 21:05 99 20 96 Venturi Mask 6.0 35 02/20/18 20:52 Venturi Mask 6.0 35 02/20/18 20:52 95 Venturi Mask 6.0 35 02/20/18 20:52 99 18 95 Venturi Mask 6.0 35 02/20/18 20:00 98.2 102 20 112/67 90 Venturi Mask 6.0 35 98.2 02/20/18 20:00 97 02/20/18 16:00 98.2 94 20 121/65 98 Venturi Mask 6.0 35 98.2 02/20/18 16:00 77 Intake and Output 02/20/18 02/21/18 19:00 07:00 Intake Total 145 ml Balance 145 ml Intake Oral 90 ml IV Total 55 ml # Voids 3 2 Height (Feet): 5 Height (Inches): 6.00 Weight (Pounds): 175 General Appearance: confused Respiratory/Chest: no respiratory distress Gurmeet Elizabeth MD Feb 21, 2018 14:57
[2018-02-21 16:00] VITALS: BP 121/68
--- NOTE | 2018-02-21 17:19 | Pulmonology Progress Note ---
Assessment/Plan Assessment/Plan ASSESSMENT: The patient is an 87-year-old male with a history of diabetes, possible chronic kidney disease, dementia, admission previously with proctitis, now presenting for respiratory illness likely viral upper respiratory infection with superimposed tracheobronchitis. He had significant bronchospasm and wheezing. There was initially concern for acute decompensated heart failure from the emergency room, but he appears euvolemic on exam. In fact, he may have a degree of prerenal azotemia. PROBLEM LIST: 1. H flu pneumonia with scattered b infiltrates 2. Bronchospasm and wheezing. 3. Acute kidney injury on underlying chronic kidney disease - RESOLVED 4. Elevated BNP, but no evidence of heart failure. 5. Dementia. 6. 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 7. Diabetes. 8. Below the knee DVT (possible paired tibial), no e/o central PE on CT-A 9. Paroxysmal AF TREATMENT PLAN: -Optimize pulmonary hygiene/mobilize as tolerated. -P.r.n. O2. -D/C DUOnebs, change to ATROVENT and LEVALBUTEROL given AF -P.r.n. Robitussin DM. -CTx (D2), F/U Cx's and ID recs -Monitor volumes and renal function, D/C IVF -Repeat duplex pending, no need to A/C for BTK DVT -Dilt per cards/EPS -Aspiration precautions. -DVT prophylaxis with heparin subcutaneous. -The patient is a Full Code. Subjective Allergies: Coded Allergies: No Known Allergies (Unverified , 03/19/17) Subjective AFVSS, O2 needs unchanged Less cough, some mobilization, no F/C, no SOB Per RN coughing while eating On nectar thick and mech soft based on VSS Briefly went into AF this am, back in NSR Objective Last 24 Hour Vital Signs Date Time Temp Pulse Resp B/P (MAP) Pulse Ox O2 Delivery O2 Flow Rate FiO2 02/21/18 16:00 98.2 100 20 121/68 98 98.2 02/21/18 16:00 102 02/21/18 13:32 92 133/71 02/21/18 12:58 92 20 97 Venturi Mask 6.0 35 02/21/18 12:51 88 18 97 Venturi Mask 6.0 35 02/21/18 12:00 97.7 97 20 133/71 100 97.7 02/21/18 12:00 94 02/21/18 08:00 95 02/21/18 08:00 97.5 97 20 127/48 100 97.5 02/21/18 07:32 99 20 96 Venturi Mask 6.0 35 02/21/18 07:25 95 Venturi Mask 6.0 35 02/21/18 07:25 Venturi Mask 6.0 35 02/21/18 07:24 93 18 95 Venturi Mask 6.0 35 02/21/18 04:00 98.6 109 20 129/61 91 Venturi Mask 6.0 35 98.6 02/21/18 04:00 104 02/21/18 01:00 108 20 95 Venturi Mask 6.0 35 02/21/18 00:53 102 18 94 Venturi Mask 6.0 35 02/21/18 00:00 101 02/21/18 00:00 100.4 100 20 156/57 90 Venturi Mask 6.0 35 100.4 02/20/18 21:05 99 20 96 Venturi Mask 6.0 35 02/20/18 20:52 Venturi Mask 6.0 35 02/20/18 20:52 95 Venturi Mask 6.0 35 02/20/18 20:52 99 18 95 Venturi Mask 6.0 35 02/20/18 20:00 98.2 102 20 112/67 90 Venturi Mask 6.0 35 98.2 02/20/18 20:00 97 Intake and Output 02/20/18 02/21/18 19:00 07:00 Intake Total 145 ml Balance 145 ml Intake Oral 90 ml IV Total 55 ml # Voids 3 2 General Appearance: no acute distress, cachetic - frail HEENT: normocephalic, atraumatic, anicteric, mucous membranes moist Respiratory/Chest: rhonchi - scattered Cardiovascular: normal peripheral pulses, normal rate, regular rhythm Abdomen: normal bowel sounds, soft, non tender, no organomegaly, non distended Extremities: no cyanosis, no clubbing, no edema Current Medications Medications (Trade) Dose Ordered Sig/Filemon Route PRN Reason Start Time Stop Time Status Last Admin Dose Admin Acetaminophen (Tylenol) 650 mg Q4H PRN ORAL Mild Pain/Temp > 100.5 02/16/18 18:30 03/18/18 18:29 02/18/18 18:32 Albuterol/ Ipratropium (Albuterol/ Ipratropium) 3 ml Q4H PRN HHN Shortness of Breath 02/16/18 21:45 02/21/18 21:44 Albuterol/ Ipratropium (Albuterol/ Ipratropium) 3 ml Q6HRT HHN 02/17/18 01:00 02/22/18 00:59 02/21/18 12:51 Aspirin (Ecotrin) 81 mg DAILY ORAL 02/17/18 09:00 03/19/18 08:59 02/21/18 09:25 Bisacodyl (Dulcolax) 10 mg DAILYPRN PRN ORAL Constipation 02/16/18 18:45 03/18/18 17:44 Ceftriaxone Sodium 1 gm/ Dextrose 55 ml @ 110 mls/hr Q24H IVPB 02/20/18 10:00 02/27/18 09:59 02/21/18 10:58 Chlorpromazine (Thorazine) 25 mg Q6H PRN IM Agitation 02/19/18 21:00 03/21/18 20:59 Dextrose (Dextrose 50%) STAT PRN IV Hypoglycemia 02/16/18 22:15 03/18/18 22:14 Dextrose (Dextrose 50%) 25 ml STAT PRN IV Hypoglycemia 02/16/18 22:15 03/18/18 22:14 Diltiazem HCl (Cardizem) 30 mg EVERY 8 HOURS ORAL 02/21/18 14:00 03/23/18 13:59 02/21/18 13:32 Docusate Sodium (Colace) 100 mg TID ORAL 02/19/18 13:00 03/18/18 17:59 02/21/18 17:09 Guaifenesin/ Dextromethorphan (Robitussin DM Syrup) 10 ml Q4H PRN ORAL For Cough 02/16/18 20:30 03/18/18 20:29 02/19/18 20:48 Heparin Sodium (Porcine) (Heparin 5000 units/ml) 5,000 units EVERY 12 HOURS SUBQ 02/17/18 09:00 03/19/18 08:59 02/21/18 09:27 Insulin Aspart (NovoLOG) BEFORE MEALS AND HS SUBQ 02/17/18 06:30 03/19/18 06:29 02/21/18 13:19 Lansoprazole (Prevacid) 30 mg DAILY ORAL 02/16/18 18:00 03/18/18 17:59 02/21/18 09:25 Magnesium Oxide (Mag-Ox 400mg) 400 mg THREE TIMES A DAY ORAL 02/19/18 13:00 03/21/18 12:59 02/21/18 17:09 Olanzapine (ZyPREXA) 2.5 mg BID ORAL 02/20/18 09:00 03/22/18 08:59 02/21/18 17:09 Potassium Chloride (K-Dur) 40 meq BID ORAL 02/20/18 18:00 03/21/18 10:59 02/21/18 17:09 Tamsulosin HCl (Flomax) 0.4 mg BEDTIME ORAL 02/16/18 21:00 03/18/18 20:59 02/20/18 21:25 Trazodone HCl (Desyrel) 25 mg BEDTIME ORAL 02/16/18 21:00 03/18/18 20:59 02/20/18 21:25 LANDON PAYNE M.D. Feb 21, 2018 17:19
[2018-02-21] MEDS ORDERED: Levalbuterol Inh UD 1.25mg/0.5ml HHN PRN (17:30)
[2018-02-21] MEDS ORDERED: Ipratropium 0.02% Inh Soln 2.5ml UD HHN PRN (17:30)
--- NOTE | 2018-02-21 19:00 | Consultation ---
DATE OF CONSULTATION: 02/21/2018 CARDIOLOGY CONSULTATION CONSULTING PHYSICIAN: Kyle Reynoso M.D. REFERRING PHYSICIAN: Gurmeet Elizabeth M.D. REASON FOR CONSULTATION: Supraventricular tachycardia. HISTORY OF PRESENT ILLNESS: The patient is an 87-year-old gentleman with history of hypertension, diabetes, dementia, and history of hepatitis, who presents to the emergency room with increasing shortness of breath, cough, and congestion. The patient had x-ray that showed no acute findings. White count is only 7.9. Rapid influenza A and B was also negative. The patient was admitted and overnight, the patient had episodes of supraventricular tachycardia, heart rate up to 180 beats per minute. Cardiology consultation was obtained for further evaluation. PAST MEDICAL HISTORY: 1. Hypertension. 2. Dementia. 3. Proctitis. MEDICATIONS: Per reconciliation. ALLERGIES: He has no known drug allergies. SOCIAL HISTORY: long-term resident. Does not smoke or drink alcohol. REVIEW OF SYSTEMS: Cannot be obtained. PHYSICAL EXAMINATION: VITAL SIGNS: Blood pressure is 132/71, pulse is 92, respirations 18, and he is afebrile. HEAD AND NECK: No JVD. LUNGS: Clear. CARDIOVASCULAR: Regular S1 and S2 with no gallop. ABDOMEN: Soft. EXTREMITIES: No pitting edema. LABORATORY AND DIAGNOSTIC DATA: Labs show white count of 9.2, hemoglobin of 14.2, hematocrit 42.7, and platelet count is 165. Sodium 133, potassium 3.4, BUN of 18, creatinine of 1.2, and glucose of 152. Troponins were negative. D-dimer is 1.04. The chest CT showed no pulmonary embolism or dissection. His echocardiogram showed ejection fraction of 50% to 55%. ASSESSMENT AND PLAN: 1. Runs of supraventricular tachycardia. His echocardiogram showed normal left ventricular systolic function. His cardiac enzymes are negative. I will start the patient on Cardizem 30 mg t.i.d. and watch the patient clinically. We will check a thyroid function test as well. 2. Haemophilus influenzae pneumonia, on IV antibiotic per Infectious Disease. 3. Diabetes. 4. Renal failure. Further evaluation by Dr. Ashraf. 5. Dementia. Thank you very much, Dr. Elizabeth, for allowing me to participate in the care of this patient. Please do not hesitate to contact me for any questions regarding my evaluation. Kyle Reynoso M.D. DR: KYLE JOB#: [id number] CC:
[2018-02-21] MEDS: Ipratropium 0.02% Inh Soln 2.5ml UD HHN SCH (19:59)
[2018-02-21] MEDS: Levalbuterol Inh UD 1.25mg/0.5ml HHN SCH (19:59)
[2018-02-21 20:00] VITALS: BP 127/64
[2018-02-21] MEDS: TraZODone HCl 25 mg tablet ORAL SCH (20:59)
[2018-02-21] MEDS: Tamsulosin 0.4mg cap ORAL SCH (20:59)
[2018-02-22] VITALS (8 sets, daily range): BP systolic 111–153; BP diastolic 58–89
[2018-02-22] MEDS: Levalbuterol Inh UD 1.25mg/0.5ml HHN SCH ×4 (00:49→19:55)
[2018-02-22] MEDS: Ipratropium 0.02% Inh Soln 2.5ml UD HHN SCH ×4 (00:49→19:54)
[2018-02-22] MEDS: dilTIAZem HCl 30mg tab ORAL SCH ×3 (06:34→21:43)
[2018-02-22] MEDS: NovoLOG Insulin Flexpen SUBQ SCH ×4 (06:55→21:45)
[2018-02-22 07:52] LABS: BASOPHILS % (AUTO) 0.8 % (0.0-2.0); EOSINOPHILS % (AUTO) 5.6 % (0.0-3.0); HEMATOCRIT 42.3 % (42.0-52.0); HEMOGLOBIN 14.4 G/DL (14.2-18.0); LYMPHOCYTES % (AUTO) 25.2 % (20.0-45.0); MEAN CORPUSCULAR VOLUME 92 FL (80-99); MONOCYTES % (AUTO) 8.1 % (1.0-10.0); NEUTROPHILS % (AUTO) 60.3 % (45.0-75.0); PLATELET COUNT 174 K/UL (150-450); RED BLOOD COUNT 4.59 M/UL (4.70-6.10); RED CELL DISTRIBUTION WIDTH 11.1 % (11.6-14.8); WHITE BLOOD COUNT 6.2 K/UL (4.8-10.8)
[2018-02-22 08:23] LABS: ALANINE AMINOTRANSFERASE 20 U/L (12-78); ALBUMIN 2.6 G/DL (3.4-5.0); ALBUMIN/GLOBULIN RATIO 0.5 (1.0-2.7); ALKALINE PHOSPHATASE 134 U/L (46-116); ANION GAP 8 mmol/L (5-15); ASPARTATE AMINO TRANSFERASE 25 U/L (15-37); BILIRUBIN,TOTAL 0.7 MG/DL (0.2-1.0); BLOOD UREA NITROGEN 22 mg/dL (7-18); CALCIUM 9.6 MG/DL (8.5-10.1); CARBON DIOXIDE 29 MMOL/L (21-32); CHLORIDE 103 MMOL/L (98-107); CREATININE 1.4 MG/DL (0.55-1.30); PHOSPHORUS 3.6 MG/DL (2.5-4.9); POTASSIUM 3.7 MMOL/L (3.5-5.1); SODIUM 140 MMOL/L (136-145)
[2018-02-22] MEDS: Magnesium Oxide 400mg tab ORAL SCH ×3 (08:23→17:18)
[2018-02-22] MEDS: OLANZapine 2.5mg tab ORAL SCH ×2 (08:23→17:18)
[2018-02-22] MEDS: Aspirin EC 81mg tab ORAL SCH (08:23)
[2018-02-22] MEDS: Docusate 100mg/10ml Liq ORAL SCH ×3 (08:24→17:18)
[2018-02-22] MEDS: Heparin 5000 units/ml inj SUBQ SCH ×2 (08:24→21:44)
[2018-02-22] MEDS: cefTRIAXone 1 GM in D5W 55 ML IVPB SCH (10:04)
--- NOTE | 2018-02-22 10:36 | Infectious Diseases Prog Note ---
Assessment/Plan Assessment/Plan A 1. haemophilus influenza pneumonia 2. renal failure 3. CHF 4. DM 5. calf vein DVT P 1. continue ceftriaxone Subjective ROS Limited/Unobtainable: Yes Allergies: Coded Allergies: No Known Allergies (Unverified , 03/19/17) Objective Vital Signs Last 24 Hour Vital Signs Date Time Temp Pulse Resp B/P (MAP) Pulse Ox O2 Delivery O2 Flow Rate FiO2 02/22/18 08:00 96.9 87 17 116/58 97 Room Air 96.9 02/22/18 08:00 98 02/22/18 07:45 102 18 94 Room Air 21 02/22/18 07:35 Room Air 21 02/22/18 07:35 21 02/22/18 07:35 92 18 92 Room Air 21 02/22/18 07:35 92 Room Air 21 02/22/18 06:34 100 130/61 02/22/18 06:10 100 130/61 02/22/18 04:00 97 02/22/18 04:00 97.0 99 20 129/74 90 Room Air 21 97.0 02/22/18 01:05 98 16 91 Room Air 21 02/22/18 00:48 98 16 91 Room Air 21 02/22/18 00:48 21 02/22/18 00:00 98.1 100 16 125/68 91 Room Air 21 98.1 02/22/18 00:00 98 02/21/18 22:37 98 127/64 02/21/18 22:12 98 16 Room Air 21 02/21/18 20:14 98 16 92 Room Air 6.0 21 02/21/18 20:00 97.9 98 16 127/64 92 97.9 02/21/18 20:00 101 02/21/18 19:57 21 02/21/18 19:57 102 20 93 Room Air 21 02/21/18 19:55 Room Air 21 02/21/18 19:51 93 Room Air 21 02/21/18 16:00 98.2 100 20 121/68 98 98.2 02/21/18 16:00 102 02/21/18 13:32 92 133/71 02/21/18 12:58 92 20 97 Venturi Mask 6.0 35 02/21/18 12:51 88 18 97 Venturi Mask 6.0 35 02/21/18 12:00 97.7 97 20 133/71 100 97.7 02/21/18 12:00 94 Height (Feet): 5 Height (Inches): 6.00 Weight (Pounds): 170 General Appearance: no acute distress HEENT: mucous membranes moist Respiratory/Chest: lungs clear Cardiovascular: normal rate Abdomen: soft, non tender Extremities: no edema Neurologic/Psychiatric: unresponsiveness Laboratory Tests Test 02/22/18 06:30 White Blood Count 6.2 K/UL (4.8-10.8) Red Blood Count 4.59 M/UL (4.70-6.10) L Hemoglobin 14.4 G/DL (14.2-18.0) Hematocrit 42.3 % (42.0-52.0) Mean Corpuscular Volume 92 FL (80-99) Mean Corpuscular Hemoglobin 31.4 PG (27.0-31.0) H Mean Corpuscular Hemoglobin Concent 34.1 G/DL (32.0-36.0) Red Cell Distribution Width 11.1 % (11.6-14.8) L Platelet Count 174 K/UL (150-450) Mean Platelet Volume 6.9 FL (6.5-10.1) Neutrophils (%) (Auto) 60.3 % (45.0-75.0) Lymphocytes (%) (Auto) 25.2 % (20.0-45.0) Monocytes (%) (Auto) 8.1 % (1.0-10.0) Eosinophils (%) (Auto) 5.6 % (0.0-3.0) H Basophils (%) (Auto) 0.8 % (0.0-2.0) Sodium Level 140 MMOL/L (136-145) Potassium Level 3.7 MMOL/L (3.5-5.1) Chloride Level 103 MMOL/L (98-107) Carbon Dioxide Level 29 MMOL/L (21-32) Anion Gap 8 mmol/L (5-15) Blood Urea Nitrogen 22 mg/dL (7-18) H Creatinine 1.4 MG/DL (0.55-1.30) H Estimat Glomerular Filtration Rate mL/min (>60) Glucose Level 167 MG/DL (74-106) H Calcium Level 9.6 MG/DL (8.5-10.1) Phosphorus Level 3.6 MG/DL (2.5-4.9) Magnesium Level 1.8 MG/DL (1.8-2.4) Total Bilirubin 0.7 MG/DL (0.2-1.0) Aspartate Amino Transf (AST/SGOT) 25 U/L (15-37) Alanine Aminotransferase (ALT/SGPT) 20 U/L (12-78) Alkaline Phosphatase 134 U/L (46-116) H Total Protein 7.9 G/DL (6.4-8.2) Albumin 2.6 G/DL (3.4-5.0) L Globulin 5.3 g/dL Albumin/Globulin Ratio 0.5 (1.0-2.7) L Current Medications Medications (Trade) Dose Ordered Sig/Filemon Route PRN Reason Start Time Stop Time Status Last Admin Dose Admin Acetaminophen (Tylenol) 650 mg Q4H PRN ORAL Mild Pain/Temp > 100.5 02/16/18 18:30 03/18/18 18:29 02/18/18 18:32 Aspirin (Ecotrin) 81 mg DAILY ORAL 02/17/18 09:00 03/19/18 08:59 02/22/18 08:23 Bisacodyl (Dulcolax) 10 mg DAILYPRN PRN ORAL Constipation 02/16/18 18:45 03/18/18 17:44 Ceftriaxone Sodium 1 gm/ Dextrose 55 ml @ 110 mls/hr Q24H IVPB 02/20/18 10:00 02/27/18 09:59 02/22/18 10:04 Chlorpromazine (Thorazine) 25 mg Q6H PRN IM Agitation 02/19/18 21:00 03/21/18 20:59 Dextrose (Dextrose 50%) STAT PRN IV Hypoglycemia 02/16/18 22:15 03/18/18 22:14 Dextrose (Dextrose 50%) 25 ml STAT PRN IV Hypoglycemia 02/16/18 22:15 03/18/18 22:14 Diltiazem HCl (Cardizem) 30 mg EVERY 8 HOURS ORAL 02/21/18 14:00 03/23/18 13:59 02/22/18 06:34 Docusate Sodium (Colace) 100 mg TID ORAL 02/19/18 13:00 03/18/18 17:59 02/22/18 08:24 Guaifenesin/ Dextromethorphan (Robitussin DM Syrup) 10 ml Q4H PRN ORAL For Cough 02/16/18 20:30 03/18/18 20:29 02/19/18 20:48 Heparin Sodium (Porcine) (Heparin 5000 units/ml) 5,000 units EVERY 12 HOURS SUBQ 02/17/18 09:00 03/19/18 08:59 02/22/18 08:24 Insulin Aspart (NovoLOG) BEFORE MEALS AND HS SUBQ 02/17/18 06:30 03/19/18 06:29 02/22/18 06:55 Ipratropium [place] (Atrovent) 500 mcg Q4H PRN HHN Shortness of Breath 02/21/18 17:30 02/26/18 17:29 Ipratropium [place] (Atrovent) 500 mcg Q6HRT HHN 02/21/18 19:00 02/26/18 18:59 02/22/18 07:42 Lansoprazole (Prevacid) 30 mg DAILY ORAL 02/16/18 18:00 03/18/18 17:59 02/22/18 08:23 Levalbuterol HCl (Xopenex) 0.63 mg Q4H PRN HHN SOB and wheezing 02/21/18 17:30 02/26/18 17:29 Levalbuterol HCl (Xopenex) 0.63 mg Q6HRT HHN 02/21/18 19:00 02/26/18 18:59 02/22/18 07:42 Magnesium Oxide (Mag-Ox 400mg) 400 mg THREE TIMES A DAY ORAL 02/19/18 13:00 03/21/18 12:59 02/22/18 08:23 Olanzapine (ZyPREXA) 2.5 mg BID ORAL 02/20/18 09:00 03/22/18 08:59 02/22/18 08:23 Potassium Chloride (K-Dur) 40 meq BID ORAL 02/20/18 18:00 03/21/18 10:59 02/22/18 08:23 Tamsulosin HCl (Flomax) 0.4 mg BEDTIME ORAL 02/16/18 21:00 03/18/18 20:59 02/21/18 20:59 Trazodone HCl (Desyrel) 25 mg BEDTIME ORAL 02/16/18 21:00 03/18/18 20:59 02/21/18 20:59 MONIK RICHARD Feb 22, 2018 10:36
--- NOTE | 2018-02-22 15:54 | Pulmonology Progress Note ---
Assessment/Plan Assessment/Plan ASSESSMENT: The patient is an 87-year-old male with a history of diabetes, possible chronic kidney disease, dementia, admission previously with proctitis, now presenting for respiratory illness likely viral upper respiratory infection with superimposed tracheobronchitis. He had significant bronchospasm and wheezing. There was initially concern for acute decompensated heart failure from the emergency room, but he appears euvolemic on exam. In fact, he may have a degree of prerenal azotemia. PROBLEM LIST: 1. H flu pneumonia with scattered b infiltrates 2. Bronchospasm and wheezing - IMPROVED 3. Acute kidney injury on underlying chronic kidney disease 4. Elevated BNP, but no evidence of heart failure. 5. Dementia. 6. 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 7. Diabetes. 8. Below the knee DVT, NOT SEEN ON F/U IMAGING 9. Paroxysmal AF TREATMENT PLAN: -Optimize pulmonary hygiene/mobilize as tolerated. -P.r.n. O2. -ATROVENT and LEVALBUTEROL HHN's -P.r.n. Robitussin DM. -CTx (D3), F/U Cx's and ID recs -Monitor volumes and renal function -Dilt per cards/EPS -Aspiration precautions. -DVT prophylaxis with heparin subcutaneous. -The patient is a Full Code -D/C planning back to SNF. Subjective Allergies: Coded Allergies: No Known Allergies (Unverified , 03/19/17) Subjective AFVSS, stable on RA Repeat Duplex no DVT No change in cough, some mobilization, no F/C, no SOB Per RN coughing worse after eating On nectar thick and mech soft based on VSS Has remained in NSR Objective Last 24 Hour Vital Signs Date Time Temp Pulse Resp B/P (MAP) Pulse Ox O2 Delivery O2 Flow Rate FiO2 02/22/18 15:25 98.1 102 19 113/67 95 Room Air 98.1 02/22/18 13:15 104 116/63 02/22/18 13:04 92 18 97 Nasal Cannula 2.0 28 02/22/18 12:55 94 18 90 Room Air 21 02/22/18 12:55 21 02/22/18 12:00 94 02/22/18 12:00 96.9 89 17 111/59 99 Room Air 96.9 02/22/18 08:00 96.9 87 17 116/58 97 Room Air 96.9 02/22/18 08:00 98 02/22/18 07:45 102 18 94 Room Air 21 02/22/18 07:35 Room Air 21 02/22/18 07:35 21 02/22/18 07:35 92 18 92 Room Air 21 02/22/18 07:35 92 Room Air 21 02/22/18 06:34 100 130/61 02/22/18 06:10 100 130/61 02/22/18 04:00 97 02/22/18 04:00 97.0 99 20 129/74 90 Room Air 21 97.0 02/22/18 01:05 98 16 91 Room Air 21 02/22/18 00:48 98 16 91 Room Air 21 02/22/18 00:48 21 02/22/18 00:00 98.1 100 16 125/68 91 Room Air 21 98.1 02/22/18 00:00 98 02/21/18 22:37 98 127/64 02/21/18 22:12 98 16 Room Air 21 02/21/18 20:14 98 16 92 Room Air 6.0 21 02/21/18 20:00 97.9 98 16 127/64 92 97.9 02/21/18 20:00 101 02/21/18 19:57 21 02/21/18 19:57 102 20 93 Room Air 21 02/21/18 19:55 Room Air 21 02/21/18 19:51 93 Room Air 21 02/21/18 16:00 98.2 100 20 121/68 98 98.2 02/21/18 16:00 102 Intake and Output 02/21/18 02/22/18 19:00 07:00 Intake Total 170 ml Balance 170 ml Intake Oral 170 ml # Voids 5 3 General Appearance: WD/WN, no acute distress HEENT: normocephalic, atraumatic, anicteric, mucous membranes moist Respiratory/Chest: chest wall non-tender, lungs clear, normal breath sounds, no respiratory distress Cardiovascular: normal peripheral pulses, normal rate, regular rhythm Abdomen: normal bowel sounds, soft, non tender, no organomegaly, non distended , no mass Extremities: no cyanosis, no clubbing, no edema Laboratory Tests 02/22/18 06:30: White Blood Count 6.2, Red Blood Count 4.59L, Hemoglobin 14.4, Hematocrit 42.3, Mean Corpuscular Volume 92, Mean Corpuscular Hemoglobin 31.4H, Mean Corpuscular Hemoglobin Concent 34.1, Red Cell Distribution Width 11.1L, Platelet Count 174, Mean Platelet Volume 6.9, Neutrophils (%) (Auto) 60.3, Lymphocytes (%) (Auto) 25.2, Monocytes (%) (Auto) 8.1, Eosinophils (%) (Auto) 5.6H, Basophils (%) (Auto ) 0.8, Sodium Level 140, Potassium Level 3.7, Chloride Level 103, Carbon Dioxide Level 29, Anion Gap 8, Blood Urea Nitrogen 22H, Creatinine 1.4H, Estimat Glomerular Filtration Rate , Glucose Level 167H, Calcium Level 9.6, Phosphorus Level 3.6, Magnesium Level 1.8, Total Bilirubin 0.7, Aspartate Amino Transf (AST/SGOT) 25, Alanine Aminotransferase (ALT/SGPT) 20, Alkaline Phosphatase 134H, Total Protein 7.9, Albumin 2.6L, Globulin 5.3, Albumin/ Globulin Ratio 0.5L Current Medications Medications (Trade) Dose Ordered Sig/Filemon Route PRN Reason Start Time Stop Time Status Last Admin Dose Admin Acetaminophen (Tylenol) 650 mg Q4H PRN ORAL Mild Pain/Temp > 100.5 02/16/18 18:30 03/18/18 18:29 02/18/18 18:32 Aspirin (Ecotrin) 81 mg DAILY ORAL 02/17/18 09:00 03/19/18 08:59 02/22/18 08:23 Bisacodyl (Dulcolax) 10 mg DAILYPRN PRN ORAL Constipation 02/16/18 18:45 03/18/18 17:44 Ceftriaxone Sodium 1 gm/ Dextrose 55 ml @ 110 mls/hr Q24H IVPB 02/20/18 10:00 02/27/18 09:59 02/22/18 10:04 Chlorpromazine (Thorazine) 25 mg Q6H PRN IM Agitation 02/19/18 21:00 03/21/18 20:59 Dextrose (Dextrose 50%) STAT PRN IV Hypoglycemia 02/16/18 22:15 03/18/18 22:14 Dextrose (Dextrose 50%) 25 ml STAT PRN IV Hypoglycemia 02/16/18 22:15 03/18/18 22:14 Diltiazem HCl (Cardizem) 30 mg EVERY 8 HOURS ORAL 02/21/18 14:00 03/23/18 13:59 02/22/18 13:15 Docusate Sodium (Colace) 100 mg TID ORAL 02/19/18 13:00 03/18/18 17:59 02/22/18 13:14 Guaifenesin/ Dextromethorphan (Robitussin DM Syrup) 10 ml Q4H PRN ORAL For Cough 02/16/18 20:30 03/18/18 20:29 02/19/18 20:48 Heparin Sodium (Porcine) (Heparin 5000 units/ml) 5,000 units EVERY 12 HOURS SUBQ 02/17/18 09:00 03/19/18 08:59 02/22/18 08:24 Insulin Aspart (NovoLOG) BEFORE MEALS AND HS SUBQ 02/17/18 06:30 03/19/18 06:29 02/22/18 11:27 Ipratropium [place] (Atrovent) 500 mcg Q4H PRN HHN Shortness of Breath 02/21/18 17:30 02/26/18 17:29 Ipratropium [place] (Atrovent) 500 mcg Q6HRT HHN 02/21/18 19:00 02/26/18 18:59 02/22/18 12:55 Lansoprazole (Prevacid) 30 mg DAILY ORAL 02/16/18 18:00 03/18/18 17:59 02/22/18 08:23 Levalbuterol HCl (Xopenex) 0.63 mg Q4H PRN HHN SOB and wheezing 02/21/18 17:30 02/26/18 17:29 Levalbuterol HCl (Xopenex) 0.63 mg Q6HRT HHN 02/21/18 19:00 02/26/18 18:59 02/22/18 12:54 Magnesium Oxide (Mag-Ox 400mg) 400 mg THREE TIMES A DAY ORAL 02/19/18 13:00 03/21/18 12:59 02/22/18 13:14 Olanzapine (ZyPREXA) 2.5 mg BID ORAL 02/20/18 09:00 03/22/18 08:59 02/22/18 08:23 Potassium Chloride (K-Dur) 40 meq BID ORAL 02/20/18 18:00 03/21/18 10:59 02/22/18 08:23 Tamsulosin HCl (Flomax) 0.4 mg BEDTIME ORAL 02/16/18 21:00 03/18/18 20:59 02/21/18 20:59 Trazodone HCl (Desyrel) 25 mg BEDTIME ORAL 02/16/18 21:00 03/18/18 20:59 02/21/18 20:59 LANDON PAYNE M.D. Feb 22, 2018 15:54
--- NOTE | 2018-02-22 16:06 | Nephrology Progress Note ---
Assessment/Plan Problem List: (1) Renal failure (ARF), acute on chronic Assessment: CKD- Nephropathy (2) CHF exacerbation (3) Type 2 diabetes mellitus (4) Dementia Assessment Cr 1.4 today CHF exacerbation Renal failure- likely diabetic, Type 2 diabetes mellitus, proteinuria Dementia Plan Plan: K and Mag supplement as needed Slow hydrate- urine studies correct lytes avoid nephrotoxics Subjective ROS Limited/Unobtainable: No Objective Objective Last 24 Hour Vital Signs Date Time Temp Pulse Resp B/P (MAP) Pulse Ox O2 Delivery O2 Flow Rate FiO2 02/22/18 15:25 98.1 102 19 113/67 95 Room Air 98.1 02/22/18 13:15 104 116/63 02/22/18 13:04 92 18 97 Nasal Cannula 2.0 28 02/22/18 12:55 94 18 90 Room Air 21 02/22/18 12:55 21 02/22/18 12:00 94 02/22/18 12:00 96.9 89 17 111/59 99 Room Air 96.9 02/22/18 08:00 96.9 87 17 116/58 97 Room Air 96.9 02/22/18 08:00 98 02/22/18 07:45 102 18 94 Room Air 21 02/22/18 07:35 Room Air 21 02/22/18 07:35 21 02/22/18 07:35 92 18 92 Room Air 21 02/22/18 07:35 92 Room Air 21 02/22/18 06:34 100 130/61 02/22/18 06:10 100 130/61 02/22/18 04:00 97 02/22/18 04:00 97.0 99 20 129/74 90 Room Air 21 97.0 02/22/18 01:05 98 16 91 Room Air 21 02/22/18 00:48 98 16 91 Room Air 21 02/22/18 00:48 21 02/22/18 00:00 98.1 100 16 125/68 91 Room Air 21 98.1 02/22/18 00:00 98 02/21/18 22:37 98 127/64 02/21/18 22:12 98 16 Room Air 21 02/21/18 20:14 98 16 92 Room Air 6.0 21 02/21/18 20:00 97.9 98 16 127/64 92 97.9 02/21/18 20:00 101 02/21/18 19:57 21 02/21/18 19:57 102 20 93 Room Air 21 02/21/18 19:55 Room Air 21 02/21/18 19:51 93 Room Air 21 Intake and Output 02/21/18 02/22/18 19:00 07:00 Intake Total 170 ml Balance 170 ml Intake Oral 170 ml # Voids 5 3 Laboratory Tests 02/22/18 06:30: White Blood Count 6.2, Red Blood Count 4.59L, Hemoglobin 14.4, Hematocrit 42.3, Mean Corpuscular Volume 92, Mean Corpuscular Hemoglobin 31.4H, Mean Corpuscular Hemoglobin Concent 34.1, Red Cell Distribution Width 11.1L, Platelet Count 174, Mean Platelet Volume 6.9, Neutrophils (%) (Auto) 60.3, Lymphocytes (%) (Auto) 25.2, Monocytes (%) (Auto) 8.1, Eosinophils (%) (Auto) 5.6H, Basophils (%) (Auto ) 0.8, Sodium Level 140, Potassium Level 3.7, Chloride Level 103, Carbon Dioxide Level 29, Anion Gap 8, Blood Urea Nitrogen 22H, Creatinine 1.4H, Estimat Glomerular Filtration Rate , Glucose Level 167H, Calcium Level 9.6, Phosphorus Level 3.6, Magnesium Level 1.8, Total Bilirubin 0.7, Aspartate Amino Transf (AST/SGOT) 25, Alanine Aminotransferase (ALT/SGPT) 20, Alkaline Phosphatase 134H, Total Protein 7.9, Albumin 2.6L, Globulin 5.3, Albumin/ Globulin Ratio 0.5L Height (Feet): 5 Height (Inches): 6.00 Weight (Pounds): 170 General Appearance: no apparent distress Cardiovascular: normal rate Respiratory/Chest: decreased breath sounds Abdomen: soft Objective no change MARIA ESTHER CARIAS Feb 22, 2018 16:06
[2018-02-22] MEDS ORDERED: LEVAQUIN500 MG ORAL (16:46)
--- NOTE | 2018-02-22 20:35 | General Progress Note ---
Assessment/Plan Problem List: (1) Dementia ICD Codes: F03.90 - Unspecified dementia without behavioral disturbance SNOMED: 74052355 (2) Type 2 diabetes mellitus ICD Codes: E11.9 - Type 2 diabetes mellitus without complications SNOMED: 83549741 (3) CHF exacerbation ICD Codes: I50.9 - Heart failure, unspecified SNOMED: 19011571 Status: progressing Assessment/Plan low grade temp hypoxic afebrile hypoxia improved dementia chrnoic dvt pna resolved Subjective ROS Limited/Unobtainable: Yes Allergies: Coded Allergies: No Known Allergies (Unverified , 03/19/17) Subjective hypoxic Objective Last 24 Hour Vital Signs Date Time Temp Pulse Resp B/P (MAP) Pulse Ox O2 Delivery O2 Flow Rate FiO2 02/22/18 20:05 104 18 96 Nasal Cannula 2.0 28 02/22/18 19:55 103 18 93 Nasal Cannula 2.0 28 02/22/18 19:55 93 Nasal Cannula 2.0 28 02/22/18 19:55 Nasal Cannula 2.0 28 02/22/18 16:00 102 02/22/18 15:25 98.1 102 19 113/67 95 Room Air 98.1 02/22/18 13:15 104 116/63 02/22/18 13:04 92 18 97 Nasal Cannula 2.0 28 02/22/18 12:55 94 18 90 Room Air 21 02/22/18 12:55 21 02/22/18 12:00 94 02/22/18 12:00 96.9 89 17 111/59 99 Room Air 96.9 02/22/18 08:00 96.9 87 17 116/58 97 Room Air 96.9 02/22/18 08:00 98 02/22/18 07:45 102 18 94 Room Air 21 02/22/18 07:35 Room Air 21 02/22/18 07:35 21 02/22/18 07:35 92 18 92 Room Air 21 02/22/18 07:35 92 Room Air 21 02/22/18 06:34 100 130/61 02/22/18 06:10 100 130/61 02/22/18 04:00 97 02/22/18 04:00 97.0 99 20 129/74 90 Room Air 21 97.0 02/22/18 01:05 98 16 91 Room Air 21 02/22/18 00:48 98 16 91 Room Air 21 02/22/18 00:48 21 02/22/18 00:00 98.1 100 16 125/68 91 Room Air 21 98.1 02/22/18 00:00 98 02/21/18 22:37 98 127/64 02/21/18 22:12 98 16 Room Air 21 Intake and Output 02/21/18 02/22/18 19:00 07:00 Intake Total 170 ml Balance 170 ml Intake Oral 170 ml # Voids 5 3 Laboratory Tests 02/22/18 06:30: White Blood Count 6.2, Red Blood Count 4.59L, Hemoglobin 14.4, Hematocrit 42.3, Mean Corpuscular Volume 92, Mean Corpuscular Hemoglobin 31.4H, Mean Corpuscular Hemoglobin Concent 34.1, Red Cell Distribution Width 11.1L, Platelet Count 174, Mean Platelet Volume 6.9, Neutrophils (%) (Auto) 60.3, Lymphocytes (%) (Auto) 25.2, Monocytes (%) (Auto) 8.1, Eosinophils (%) (Auto) 5.6H, Basophils (%) (Auto ) 0.8, Sodium Level 140, Potassium Level 3.7, Chloride Level 103, Carbon Dioxide Level 29, Anion Gap 8, Blood Urea Nitrogen 22H, Creatinine 1.4H, Estimat Glomerular Filtration Rate , Glucose Level 167H, Calcium Level 9.6, Phosphorus Level 3.6, Magnesium Level 1.8, Total Bilirubin 0.7, Aspartate Amino Transf (AST/SGOT) 25, Alanine Aminotransferase (ALT/SGPT) 20, Alkaline Phosphatase 134H, Total Protein 7.9, Albumin 2.6L, Globulin 5.3, Albumin/ Globulin Ratio 0.5L Height (Feet): 5 Height (Inches): 6.00 Weight (Pounds): 170 Cardiovascular: normal rate Respiratory/Chest: lungs clear Gurmeet Elizabeth MD Feb 22, 2018 20:35
[2018-02-22] MEDS ORDERED: Guaifenesin/DM 10ml syrup ORAL PRN (21:00)
[2018-02-22] MEDS ORDERED: TraZODone HCl 25 mg tablet ORAL SCH (21:00)
[2018-02-22] MEDS ORDERED: Tamsulosin 0.4mg cap ORAL SCH (21:00)
[2018-02-22] MEDS ORDERED: Ipratropium 0.02% Inh Soln 2.5ml UD HHN PRN (21:30)
[2018-02-22] MEDS ORDERED: Levalbuterol Inh UD 1.25mg/0.5ml HHN PRN (21:30)
[2018-02-23] VITALS: BP 123/75
[2018-02-23] MEDS: Ipratropium 0.02% Inh Soln 2.5ml UD HHN SCH ×3 (01:29→13:43)
[2018-02-23] MEDS: Levalbuterol Inh UD 1.25mg/0.5ml HHN SCH ×3 (01:29→13:43)
[2018-02-23 04:00] VITALS: BP 118/71
[2018-02-23] MEDS: dilTIAZem HCl 30mg tab ORAL SCH ×2 (05:27→13:24)
[2018-02-23] MEDS: NovoLOG Insulin Flexpen SUBQ SCH ×2 (06:07→11:57)
[2018-02-23 08:00] VITALS: BP 91/52
[2018-02-23] MEDS: Docusate 100mg/10ml Liq ORAL SCH ×2 (08:23→12:46)
[2018-02-23] MEDS: Magnesium Oxide 400mg tab ORAL SCH ×2 (08:24→12:46)
[2018-02-23] MEDS ORDERED: Aspirin EC 81mg tab ORAL SCH (09:00)
[2018-02-23] MEDS ORDERED: OLANZapine 2.5mg tab ORAL SCH (09:00)
[2018-02-23] MEDS: Heparin 5000 units/ml inj SUBQ SCH (09:16)
[2018-02-23] MEDS ORDERED: cefTRIAXone 1 GM in D5W 55 ML IVPB SCH (10:00)
--- NOTE | 2018-02-23 10:21 | Nephrology Progress Note ---
Assessment/Plan Problem List: (1) Renal failure (ARF), acute on chronic Assessment: CKD- Nephropathy (2) CHF exacerbation (3) Type 2 diabetes mellitus (4) Dementia Assessment Cr 1.4 today CHF exacerbation Renal failure- likely diabetic, Type 2 diabetes mellitus, proteinuria Dementia Plan Plan: No labs today K and Mag supplement as needed Slow hydrate- urine studies correct lytes avoid nephrotoxics Subjective ROS Limited/Unobtainable: No Constitutional: Reports: malaise, weakness Objective Objective Last 24 Hour Vital Signs Date Time Temp Pulse Resp B/P (MAP) Pulse Ox O2 Delivery O2 Flow Rate FiO2 02/23/18 07:44 96 18 98 Nasal Cannula 2.0 02/23/18 07:34 98 20 94 Nasal Cannula 2.0 02/23/18 07:33 Nasal Cannula 2.0 02/23/18 07:32 94 Nasal Cannula 2.0 02/23/18 05:27 107 118/71 02/23/18 04:00 98.7 107 20 118/71 90 98.7 02/23/18 01:39 114 20 98 Nasal Cannula 3.0 32 02/23/18 01:29 112 20 95 Nasal Cannula 3.0 32 02/23/18 00:00 Nasal Cannula 2.0 02/23/18 00:00 97.2 109 21 123/75 90 97.2 02/22/18 21:43 72 153/89 02/22/18 20:30 98.4 72 22 153/89 92 98.4 02/22/18 20:30 Nasal Cannula 2.0 02/22/18 20:05 104 18 96 Nasal Cannula 2.0 28 02/22/18 20:00 97.7 99 22 130/71 92 Nasal Cannula 2.0 97.7 02/22/18 19:55 103 18 93 Nasal Cannula 2.0 28 02/22/18 19:55 93 Nasal Cannula 2.0 28 02/22/18 19:55 Nasal Cannula 2.0 28 02/22/18 16:00 102 02/22/18 15:25 98.1 102 19 113/67 95 Room Air 98.1 02/22/18 13:15 104 116/63 02/22/18 13:04 92 18 97 Nasal Cannula 2.0 28 02/22/18 12:55 94 18 90 Room Air 21 4/15/18 12:55 21 02/22/18 12:00 94 02/22/18 12:00 96.9 89 17 111/59 99 Room Air 96.9 Intake and Output 02/22/18 02/23/18 19:00 07:00 Intake Total 385 ml 420 ml Balance 385 ml 420 ml Intake Oral 330 ml 420 ml IV Total 55 ml # Voids 2 Height (Feet): 5 Height (Inches): 6.00 Weight (Pounds): 157 General Appearance: no apparent distress Objective no change MARIA ESTHER CARIAS Feb 23, 2018 10:21
[2018-02-23] MEDS ORDERED: HEPARIN SO5000 UNIT2 SUBQ (10:39)
[2018-02-23 12:00] VITALS: BP 133/80
--- NOTE | 2018-02-23 13:18 | Pulmonology Progress Note ---
Assessment/Plan Assessment/Plan ASSESSMENT: The patient is an 87-year-old male with a history of diabetes, possible chronic kidney disease, dementia, admission previously with proctitis, now presenting for respiratory illness likely viral upper respiratory infection with superimposed tracheobronchitis. He had significant bronchospasm and wheezing. There was initially concern for acute decompensated heart failure from the emergency room, but he appears euvolemic on exam. In fact, he may have a degree of prerenal azotemia. PROBLEM LIST: 1. H flu pneumonia with scattered b infiltrates 2. Bronchospasm and wheezing - IMPROVED 3. Acute kidney injury on underlying chronic kidney disease 4. Elevated BNP, but no evidence of heart failure. 5. Dementia. 6. 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 7. Diabetes. 8. Below the knee DVT, NOT SEEN ON F/U IMAGING 9. Paroxysmal AF TREATMENT PLAN: -Optimize pulmonary hygiene/mobilize as tolerated. -P.r.n. O2. -ATROVENT and LEVALBUTEROL HHN's -P.r.n. Robitussin DM. -CTx (D4), F/U Cx's and ID recs -Monitor volumes and renal function -Dilt per cards/EPS -Aspiration precautions. -DVT prophylaxis with heparin subcutaneous. -The patient is a Full Code -D/C planning back to SNF. Subjective Allergies: Coded Allergies: No Known Allergies (Unverified , 03/19/17) Subjective AFVSS, stable on RA No change in cough, some mobilization, no F/C, no SO On nectar thick and mech soft based on VSS Has remained in NSR Objective Last 24 Hour Vital Signs Date Time Temp Pulse Resp B/P (MAP) Pulse Ox O2 Delivery O2 Flow Rate FiO2 02/23/18 12:00 97.0 104 20 133/80 93 Room Air 97.0 02/23/18 08:00 98.0 94 20 91/52 98 Nasal Cannula 2.0 98.0 02/23/18 07:44 96 18 98 Nasal Cannula 2.0 02/23/18 07:34 98 20 94 Nasal Cannula 2.0 02/23/18 07:33 Nasal Cannula 2.0 02/23/18 07:32 94 Nasal Cannula 2.0 02/23/18 05:27 107 118/71 02/23/18 04:00 98.7 107 20 118/71 90 98.7 02/23/18 01:39 114 20 98 Nasal Cannula 3.0 32 02/23/18 01:29 112 20 95 Nasal Cannula 3.0 32 02/23/18 00:00 Nasal Cannula 2.0 02/23/18 00:00 97.2 109 21 123/75 90 97.2 02/22/18 21:43 72 153/89 02/22/18 20:30 98.4 72 22 153/89 92 98.4 02/22/18 20:30 Nasal Cannula 2.0 02/22/18 20:05 104 18 96 Nasal Cannula 2.0 28 02/22/18 20:00 97.7 99 22 130/71 92 Nasal Cannula 2.0 97.7 02/22/18 19:55 103 18 93 Nasal Cannula 2.0 28 02/22/18 19:55 93 Nasal Cannula 2.0 28 02/22/18 19:55 Nasal Cannula 2.0 28 02/22/18 16:00 102 02/22/18 15:25 98.1 102 19 113/67 95 Room Air 98.1 Intake and Output 02/22/18 02/23/18 19:00 07:00 Intake Total 385 ml 420 ml Balance 385 ml 420 ml Intake Oral 330 ml 420 ml IV Total 55 ml # Voids 2 General Appearance: WD/WN, no acute distress HEENT: normocephalic, atraumatic, anicteric, mucous membranes moist Respiratory/Chest: chest wall non-tender, lungs clear, normal breath sounds, no respiratory distress, no accessory muscle use Cardiovascular: normal peripheral pulses, normal rate, regular rhythm Abdomen: normal bowel sounds, soft, non tender, no organomegaly, non distended Extremities: no cyanosis, no clubbing, no edema Laboratory Tests 02/23/18 11:00: C-Reactive Protein, Quantitative 13.0H Current Medications Medications (Trade) Dose Ordered Sig/Filemon Route PRN Reason Start Time Stop Time Status Last Admin Dose Admin Acetaminophen (Tylenol) 650 mg Q4H PRN ORAL Mild Pain/Temp > 100.5 02/22/18 21:00 03/24/18 20:59 Aspirin (Ecotrin) 81 mg DAILY ORAL 02/23/18 09:00 03/19/18 08:59 02/23/18 08:24 Bisacodyl (Dulcolax) 10 mg DAILYPRN PRN ORAL Constipation 02/23/18 18:45 03/18/18 17:44 Ceftriaxone Sodium 1 gm/ Dextrose 55 ml @ 110 mls/hr Q24H IVPB 02/23/18 10:00 02/27/18 09:59 02/23/18 10:19 Chlorpromazine (Thorazine) 25 mg Q6H PRN IM Agitation 02/22/18 21:00 03/21/18 20:59 Dextrose (Dextrose 50%) STAT PRN IV Hypoglycemia 02/22/18 22:15 03/18/18 22:14 Dextrose (Dextrose 50%) 25 ml STAT PRN IV Hypoglycemia 02/22/18 22:15 03/18/18 22:14 Diltiazem HCl (Cardizem) 30 mg EVERY 8 HOURS ORAL 02/22/18 22:00 03/23/18 13:59 02/23/18 05:27 Docusate Sodium (Colace) 100 mg TID ORAL 02/23/18 09:00 03/18/18 17:59 02/23/18 12:46 Guaifenesin/ Dextromethorphan (Robitussin DM Syrup) 10 ml Q4H PRN ORAL For Cough 02/22/18 21:00 03/24/18 20:59 Heparin Sodium (Porcine) (Heparin 5000 units/ml) 5,000 units EVERY 12 HOURS SUBQ 02/22/18 21:00 03/19/18 08:59 02/23/18 09:16 Insulin Aspart (NovoLOG) BEFORE MEALS AND HS SUBQ 02/22/18 21:00 03/19/18 06:29 02/23/18 11:57 Ipratropium [place] (Atrovent) 500 mcg Q4H PRN HHN Shortness of Breath 02/22/18 21:30 02/26/18 17:29 Ipratropium [place] (Atrovent) 500 mcg Q6HRT HHN 02/23/18 01:00 02/26/18 18:59 02/23/18 07:34 Lansoprazole (Prevacid) 30 mg DAILY ORAL 02/23/18 09:00 03/18/18 17:59 02/23/18 08:23 Levalbuterol HCl (Xopenex) 0.63 mg Q4H PRN HHN SOB and wheezing 02/22/18 21:30 02/26/18 17:29 Levalbuterol HCl (Xopenex) 0.63 mg Q6HRT HHN 02/23/18 01:00 02/26/18 18:59 02/23/18 07:35 Magnesium Oxide (Mag-Ox 400mg) 400 mg THREE TIMES A DAY ORAL 02/23/18 09:00 03/21/18 12:59 02/23/18 12:46 Olanzapine (ZyPREXA) 2.5 mg BID ORAL 02/23/18 09:00 03/22/18 08:59 02/23/18 08:23 Potassium Chloride (K-Dur) 40 meq DAILY ORAL 02/24/18 09:00 03/21/18 10:59 Tamsulosin HCl (Flomax) 0.4 mg BEDTIME ORAL 02/22/18 21:00 03/18/18 20:59 02/22/18 21:42 Trazodone HCl (Desyrel) 25 mg BEDTIME ORAL 02/22/18 21:00 03/18/18 20:59 02/22/18 21:42 LANDON PAYNE M.D. Feb 23, 2018 13:18
[2018-02-23 13:24] VITALS: BP 133/80
--- NOTE | 2018-02-23 13:41 | Infectious Diseases Prog Note ---
Assessment/Plan Assessment/Plan A 1. haemophilus influenza pneumonia 2. renal failure 3. CHF 4. DM 5. calf vein DVT P 1. Agree with discharge to SNF with PO Levaquin Subjective ROS Limited/Unobtainable: Yes Constitutional: Reports: other - doing better, afebrile Allergies: Coded Allergies: No Known Allergies (Unverified , 03/19/17) Objective Vital Signs Last 24 Hour Vital Signs Date Time Temp Pulse Resp B/P (MAP) Pulse Ox O2 Delivery O2 Flow Rate FiO2 02/23/18 13:24 104 133/80 02/23/18 12:00 97.0 104 20 133/80 93 Room Air 97.0 02/23/18 08:00 98.0 94 20 91/52 98 Nasal Cannula 2.0 98.0 02/23/18 07:44 96 18 98 Nasal Cannula 2.0 02/23/18 07:34 98 20 94 Nasal Cannula 2.0 02/23/18 07:33 Nasal Cannula 2.0 02/23/18 07:32 94 Nasal Cannula 2.0 02/23/18 05:27 107 118/71 02/23/18 04:00 98.7 107 20 118/71 90 98.7 02/23/18 01:39 114 20 98 Nasal Cannula 3.0 32 02/23/18 01:29 112 20 95 Nasal Cannula 3.0 32 02/23/18 00:00 Nasal Cannula 2.0 02/23/18 00:00 97.2 109 21 123/75 90 97.2 02/22/18 21:43 72 153/89 02/22/18 20:30 98.4 72 22 153/89 92 98.4 02/22/18 20:30 Nasal Cannula 2.0 02/22/18 20:05 104 18 96 Nasal Cannula 2.0 28 02/22/18 20:00 97.7 99 22 130/71 92 Nasal Cannula 2.0 97.7 02/22/18 19:55 103 18 93 Nasal Cannula 2.0 28 02/22/18 19:55 93 Nasal Cannula 2.0 28 02/22/18 19:55 Nasal Cannula 2.0 28 02/22/18 16:00 102 02/22/18 15:25 98.1 102 19 113/67 95 Room Air 98.1 Height (Feet): 5 Height (Inches): 6.00 Weight (Pounds): 157 General Appearance: no acute distress HEENT: mucous membranes moist Respiratory/Chest: lungs clear Cardiovascular: normal rate Abdomen: soft, non tender Extremities: no edema Neurologic/Psychiatric: other - sleeping Laboratory Tests Test 02/23/18 11:00 C-Reactive Protein, Quantitative 13.0 mg/dL (0.00-0.90) H Current Medications Medications (Trade) Dose Ordered Sig/Filemon Route PRN Reason Start Time Stop Time Status Last Admin Dose Admin Acetaminophen (Tylenol) 650 mg Q4H PRN ORAL Mild Pain/Temp > 100.5 02/22/18 21:00 03/24/18 20:59 Aspirin (Ecotrin) 81 mg DAILY ORAL 02/23/18 09:00 03/19/18 08:59 02/23/18 08:24 Bisacodyl (Dulcolax) 10 mg DAILYPRN PRN ORAL Constipation 02/23/18 18:45 03/18/18 17:44 Ceftriaxone Sodium 1 gm/ Dextrose 55 ml @ 110 mls/hr Q24H IVPB 02/23/18 10:00 02/27/18 09:59 02/23/18 10:19 Chlorpromazine (Thorazine) 25 mg Q6H PRN IM Agitation 02/22/18 21:00 03/21/18 20:59 Dextrose (Dextrose 50%) STAT PRN IV Hypoglycemia 02/22/18 22:15 03/18/18 22:14 Dextrose (Dextrose 50%) 25 ml STAT PRN IV Hypoglycemia 02/22/18 22:15 03/18/18 22:14 Diltiazem HCl (Cardizem) 30 mg EVERY 8 HOURS ORAL 02/22/18 22:00 03/23/18 13:59 02/23/18 13:24 Docusate Sodium (Colace) 100 mg TID ORAL 02/23/18 09:00 03/18/18 17:59 02/23/18 12:46 Guaifenesin/ Dextromethorphan (Robitussin DM Syrup) 10 ml Q4H PRN ORAL For Cough 02/22/18 21:00 03/24/18 20:59 Heparin Sodium (Porcine) (Heparin 5000 units/ml) 5,000 units EVERY 12 HOURS SUBQ 02/22/18 21:00 03/19/18 08:59 02/23/18 09:16 Insulin Aspart (NovoLOG) BEFORE MEALS AND HS SUBQ 02/22/18 21:00 03/19/18 06:29 02/23/18 11:57 Ipratropium Rogers (Atrovent) 500 mcg Q4H PRN HHN Shortness of Breath 02/22/18 21:30 02/26/18 17:29 Ipratropium Rogers (Atrovent) 500 mcg Q6HRT HHN 02/23/18 01:00 02/26/18 18:59 02/23/18 07:34 Lansoprazole (Prevacid) 30 mg DAILY ORAL 02/23/18 09:00 03/18/18 17:59 02/23/18 08:23 Levalbuterol HCl (Xopenex) 0.63 mg Q4H PRN HHN SOB and wheezing 02/22/18 21:30 02/26/18 17:29 Levalbuterol HCl (Xopenex) 0.63 mg Q6HRT HHN 02/23/18 01:00 02/26/18 18:59 02/23/18 07:35 Magnesium Oxide (Mag-Ox 400mg) 400 mg THREE TIMES A DAY ORAL 02/23/18 09:00 03/21/18 12:59 02/23/18 12:46 Olanzapine (ZyPREXA) 2.5 mg BID ORAL 02/23/18 09:00 03/22/18 08:59 02/23/18 08:23 Potassium Chloride (K-Dur) 40 meq DAILY ORAL 02/24/18 09:00 03/21/18 10:59 Tamsulosin HCl (Flomax) 0.4 mg BEDTIME ORAL 02/22/18 21:00 03/18/18 20:59 02/22/18 21:42 Trazodone HCl (Desyrel) 25 mg BEDTIME ORAL 02/22/18 21:00 03/18/18 20:59 02/22/18 21:42 MONIK RICHARD Feb 23, 2018 13:41
--- NOTE | 2018-02-23 14:01 | Cardiac Electrophysiology PN ---
Assessment/Plan Assessment/Plan 1. Runs of supraventricular tachycardia. His echocardiogram showed normal left ventricular systolic function. His cardiac enzymes are negative. Continue Cardizem 30 mg t.i.d. 2. Haemophilus influenzae pneumonia, on IV antibiotic per Infectious Disease. 3. Diabetes. 4. Renal failure. Further evaluation by Dr. Ashraf. 5. Dementia. Subjective Subjective Transferred to [facility]. Getting Oxygen. No CP. RT at bedside Objective Last 24 Hour Vital Signs Date Time Temp Pulse Resp B/P (MAP) Pulse Ox O2 Delivery O2 Flow Rate FiO2 02/23/18 13:43 100 22 92 Room Air 02/23/18 13:24 104 133/80 02/23/18 12:00 97.0 104 20 133/80 93 Room Air 97.0 02/23/18 08:00 98.0 94 20 91/52 98 Nasal Cannula 2.0 98.0 02/23/18 07:44 96 18 98 Nasal Cannula 2.0 02/23/18 07:34 98 20 94 Nasal Cannula 2.0 02/23/18 07:33 Nasal Cannula 2.0 02/23/18 07:32 94 Nasal Cannula 2.0 02/23/18 05:27 107 118/71 02/23/18 04:00 98.7 107 20 118/71 90 98.7 02/23/18 01:39 114 20 98 Nasal Cannula 3.0 32 02/23/18 01:29 112 20 95 Nasal Cannula 3.0 32 02/23/18 00:00 Nasal Cannula 2.0 02/23/18 00:00 97.2 109 21 123/75 90 97.2 02/22/18 21:43 72 153/89 02/22/18 20:30 98.4 72 22 153/89 92 98.4 02/22/18 20:30 Nasal Cannula 2.0 02/22/18 20:05 104 18 96 Nasal Cannula 2.0 28 02/22/18 20:00 97.7 99 22 130/71 92 Nasal Cannula 2.0 97.7 02/22/18 19:55 103 18 93 Nasal Cannula 2.0 28 02/22/18 19:55 93 Nasal Cannula 2.0 28 02/22/18 19:55 Nasal Cannula 2.0 28 02/22/18 16:00 102 02/22/18 15:25 98.1 102 19 113/67 95 Room Air 98.1 Intake and Output 02/22/18 02/23/18 19:00 07:00 Intake Total 385 ml 420 ml Balance 385 ml 420 ml Intake Oral 330 ml 420 ml IV Total 55 ml # Voids 2 Laboratory Tests Test 02/23/18 11:00 C-Reactive Protein, Quantitative 13.0 mg/dL (0.00-0.90) H Objective HEAD AND NECK: No JVD. LUNGS: Clear. CARDIOVASCULAR: Regular S1 and S2 with no gallop. ABDOMEN: Soft. EXTREMITIES: No pitting edema. Kyle Reynoso MD Feb 23, 2018 14:01
[2018-02-23] MEDS ORDERED: Bisacodyl EC 5mg tab ORAL PRN (18:45)
--- NOTE | 2018-02-24 00:05 | General Progress Note ---
Assessment/Plan Assessment/Plan encephalopathy dementia with behavioral disturbance zyprexa thorazine prn Subjective Date patient seen: Feb 23, 2018 Allergies: Coded Allergies: No Known Allergies (Unverified , 03/19/17) Subjective the next to bed the pt calmer the pt was confused Objective Last 24 Hour Vital Signs Date Time Temp Pulse Resp B/P (MAP) Pulse Ox O2 Delivery O2 Flow Rate FiO2 02/23/18 13:53 103 20 97 Nasal Cannula 2.0 02/23/18 13:43 100 22 92 Room Air 02/23/18 13:24 104 133/80 02/23/18 12:00 97.0 104 20 133/80 93 Room Air 97.0 02/23/18 08:00 98.0 94 20 91/52 98 Nasal Cannula 2.0 98.0 02/23/18 07:44 96 18 98 Nasal Cannula 2.0 02/23/18 07:34 98 20 94 Nasal Cannula 2.0 02/23/18 07:33 Nasal Cannula 2.0 02/23/18 07:32 94 Nasal Cannula 2.0 02/23/18 05:27 107 118/71 02/23/18 04:00 98.7 107 20 118/71 90 98.7 02/23/18 01:39 114 20 98 Nasal Cannula 3.0 32 02/23/18 01:29 112 20 95 Nasal Cannula 3.0 32 Intake and Output 02/23/18 02/24/18 19:00 07:00 Intake Total 55 ml Balance 55 ml IV Total 55 ml Laboratory Tests 02/23/18 11:00: C-Reactive Protein, Quantitative 13.0H Height (Feet): 5 Height (Inches): 6.00 Weight (Pounds): 157 Melly Estrada M.D. Feb 24, 2018 00:05
--- NOTE | 2018-02-24 00:06 | General Progress Note ---
Assessment/Plan Assessment/Plan encephalopathy dementia with behavioral disturbance zyprexa thorazine prn Subjective Date patient seen: Feb 22, 2018 Allergies: Coded Allergies: No Known Allergies (Unverified , 03/19/17) Subjective the next to bed the pt calmer Objective Last 24 Hour Vital Signs Date Time Temp Pulse Resp B/P (MAP) Pulse Ox O2 Delivery O2 Flow Rate FiO2 02/23/18 13:53 103 20 97 Nasal Cannula 2.0 02/23/18 13:43 100 22 92 Room Air 02/23/18 13:24 104 133/80 02/23/18 12:00 97.0 104 20 133/80 93 Room Air 97.0 02/23/18 08:00 98.0 94 20 91/52 98 Nasal Cannula 2.0 98.0 02/23/18 07:44 96 18 98 Nasal Cannula 2.0 02/23/18 07:34 98 20 94 Nasal Cannula 2.0 02/23/18 07:33 Nasal Cannula 2.0 02/23/18 07:32 94 Nasal Cannula 2.0 02/23/18 05:27 107 118/71 02/23/18 04:00 98.7 107 20 118/71 90 98.7 02/23/18 01:39 114 20 98 Nasal Cannula 3.0 32 02/23/18 01:29 112 20 95 Nasal Cannula 3.0 32 Intake and Output 02/23/18 02/24/18 19:00 07:00 Intake Total 55 ml Balance 55 ml IV Total 55 ml Laboratory Tests 02/23/18 11:00: C-Reactive Protein, Quantitative 13.0H Height (Feet): 5 Height (Inches): 6.00 Weight (Pounds): 157 Melly Estrada M.D. Feb 24, 2018 00:06
[2018-02-24] MEDS ORDERED: Levofloxacin 500mg tab ORAL SCH (09:00)
--- NOTE | 2018-02-24 15:31 | Diagnostic Imaging Report ---
Indications: Dysphagia Technique: Patient ingested multiple substances under the supervision of speech pathology. Video fluoroscopic recording performed. Total fluoroscopy time 185.2 seconds. Total dose area product [id number] mGycm2 Comparison: none Findings: Early pooling of contrast is seen within the vallecula and piriform sinuses. No significant delayed pooling. No definite aspiration or penetration demonstrated. Impression: Negative for aspiration or penetration Please refer to speech pathology report for detailed analysis
--- NOTE | 2018-02-25 14:47 | Discharge Summary ---
Discharge Summary Hospital Course Date of Admission Feb 16, 2018 at 13:09 Date of Discharge Feb 23, 2018 at 16:45 Admitting Diagnosis CHF EXACEBRATION HPI Yoshi Middleton is a 87 year old male who was admitted on Feb 16, 2018 at 13:09 for Congestive Heart Failure Exacerbation. Sent in by PMD for increased productive cough and difficulty with breathing. Patient had been sent in [facility]. Patient had prior history of dementia. History is markedly limited by patient's mental status. Past Medical History Deferred: Pt Cognitively Impaired Hx Cardiac Problems: Yes - Hypomagnesia Hx Hypertension: Yes Hx Diabetes: Yes - DM II Hx Cancer: No Hx Gastrointestinal Problems: No - hemmorhage of anus and rectum, acute kidney failure, hypomagnesemia Hx Dialysis: No - ACUTE KIDNEY FAILURE Hx Neurological Problems: Yes - diffculty walking, muscle weakness Hx Cerebrovascular Accident: No - HIP FX Hx Dementia: Yes Hx Alzheimer's Disease: Yes Hx Weakness: Yes Procedures Procedure: Swallow Function Video Indications: Dysphagia Impression: Negative for aspiration or penetration 2DEchocardiogram w/Doppler Left ventricular ejection fraction estimated to be 50-55 %. Procedure: CTA Chest w Contrast Indication: Chest pain Impression: Limited exam, due to image degradation from respiratory motion artifact. No gross large vessel pulmonary was demonstrated Fairly extensive bilateral nonspecific parenchymal disease, likely pneumonia versus pulmonary edema. There is also a component of atelectasis. Bilateral calcifications, indicative of old granulomatous disease, indicate there may also be a chronic component to the parenchymal changes Borderline cardiomegaly T6 vertebral body compression fracture deformity, age indeterminate. Consider MRI for better characterization if this is considered clinically relevant Degenerative spondylosis Hospital Course Rule out CHF exacerbation, shortness of breath, cough. Dr. Ashraf and Dr. Sebastian Pappas to see the patient for the management of fluid and management of the CHF as well as for hypokalemia and hyponatremia. Nephro noted renal failure, likely diabetic. Plan was to slowly hydrate, collect urine studies and correct any electrolytes. Cardiology summary noted below: PROBLEM LIST: 1. Viral upper respiratory infection plus or minus superimposed tracheobronchitis. 2. Bronchospasm and wheezing. 3. Acute kidney injury, unlikely chronic kidney disease. 4. Elevated BNP, but no evidence of heart failure. 5. Dementia. 6. 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 7. Diabetes. TREATMENT PLAN: 1. Optimize pulmonary hygiene/mobilize as tolerated. 2. P.r.n. O2. 3. Hrnje-zch-tmgma and p.r.n. DuoNebs. 4. P.r.n. Robitussin DM. 5. Observe off antibiotics with a low threshold to start community-acquired pneumonia coverage. 6. Monitor volumes and renal function, agree with gentle IV fluid hydration. 7. Follow up echocardiogram. 8. Swallow evaluation. 9. Aspiration precautions. 10. DVT prophylaxis with heparin subcutaneous. 11. The patient is a Full Code. Psychiatric Assessment/Plan Status: stable, progressing Assessment/Plan encephalopathy dementia with behavioral disturbance Recommendations: zyprexa thorazine prn Discharge course: CHF exacerbation managed. Hypoxia improved, the patient became afebrile. Pneumonia had resolved. Noted patient has dementia and hx of chronic DVT. Patient was stable for discharge. Discharge Condition Upon Discharge: stable Discharge Disposition Patient was discharged to SNF/Subacute Facility(03) Please refer to nursing medication reconciliation list for discharge medications. Discharge Diagnoses: (1) CHF exacerbation (2) Renal failure (ARF), acute on chronic Discharge Instructions Discharge Instructions Special Instructions NURSE NOTES: Patient d/c to [facility] as ordered. Report given to JAMAICA Mayer. No belongings. Removed IV access. Transfer package given to [facility] personnel. Patient left unit safely, accompanied w/ [facility] personnel. Note I have been assigned to do the discharge summary for this patient and did not provide any care for the patient. Savannah Ash N.P. Feb 25, 2018 14:47
--- NOTE | 2018-02-25 15:36 | Diagnostic Imaging Report ---
APPROVED REPORT CPT Code: 02154 Present Symptoms Comments: BILATERAL LEGS PAIN. RIGHT LEG: Venous imaging reveals a patent deep venous system. There is no evidence of thrombus within the femoral, popliteal or tibial segments. The greater saphenous vein is also within normal limits. Doppler indicates normal spontaneous flow within these segments. LEFT LEG: Venous imaging reveals acute thrombus in one of the paired calf veins (posterior tibial). Imaging also reveals patency of the common femoral, popliteal and calf veins (posterior tibial and anterior tibial).
--- NOTE | 2018-02-25 18:37 | General Progress Note ---
Assessment/Plan Status: stable, progressing Assessment/Plan encephalopathy dementia with behavioral disturbance zyprexa thorazine prn Subjective Date patient seen: Feb 25, 2018 Neurologic/Psychiatric: Reports: anxiety, depressed, emotional problems Allergies: Coded Allergies: No Known Allergies (Unverified , 03/19/17) Subjective the pt calmer Objective Height (Feet): 5 Height (Inches): 6.00 Weight (Pounds): 157 General Appearance: no apparent distress, alert, confused Melly Estrada M.D. Feb 25, 2018 18:37
--- NOTE | 2018-02-27 00:09 | Diagnostic Imaging Report ---
APPROVED REPORT CPT Code: 63058 Present Symptoms Comments: BILATERAL LEGS PAIN. RIGHT LEG: Venous imaging reveals a patent deep venous system. There is no evidence of thrombus within the femoral, popliteal or tibial segments. The greater saphenous vein is also within normal limits. Doppler indicates normal spontaneous flow within these segments. LEFT LEG: Venous imaging reveals chronic thrombus in the superficial femoral vein. Imaging also reveals patency of the common femoral, popliteal and calf veins. The greater saphenous vein is also within normal limits. Doppler indicates normal spontaneous flow within these segments.
== END 2018-02-23 16:45 | DRG 194 ==
LOC: EDBD 11:08 → EMR 11:25 → EDBEDREQ 12:26 → 2E 13:09 → EDBEDREQ 15:06 → 4E 02-22 20:33
DX: I13.0 Hypertensive heart and chronic kidney disease with heart failure and stage 1 through stage 4 chronic kidney disease, or unspecified chronic kidney disease (principal); J14 Pneumonia due to Hemophilus influenzae; N17.9 Acute kidney failure, unspecified; I82.499 Acute embolism and thrombosis of other specified deep vein of unspecified lower extremity; E11.22 Type 2 diabetes mellitus with diabetic chronic kidney disease; F03.91 Unspecified dementia, unspecified severity, with behavioral disturbance; I48.0 Paroxysmal atrial fibrillation; I47.1 Supraventricular tachycardia; I50.9 Heart failure, unspecified; J20.8 Acute bronchitis due to other specified organisms; E87.1 Hypo-osmolality and hyponatremia; E11.9 Type 2 diabetes mellitus without complications; N40.0 Benign prostatic hyperplasia without lower urinary tract symptoms; F09 Unspecified mental disorder due to known physiological condition; I11.0 Hypertensive heart disease with heart failure; K21.9 Gastro-esophageal reflux disease without esophagitis; J06.9 Acute upper respiratory infection, unspecified; N18.9 Chronic kidney disease, unspecified
CPT/HCPCS: 36415; 36600; 71045; 71275; 74230; 80048; 80053; 80061; 81003; 82550; 82553; 82607; 82746; 82803; 82962; 82977; 83036; 83605; 83735; 83880; 84100; 84443; 84484; 84550; 85025; 85379; 86140; 86710; 87040; 87070; 87081; 87205; 93005; 93306; 93970; 94640; 94664; 94760; 99285; J1815; J7620; J8499

== ENCOUNTER 2018-09-11 11:58 | Emergency (ER) | payer MEDICAID ==
[~2018-09-11] VITALS: Ht 172.7 cm; Wt 72.6 kg
[~2018-09-11 11:58] MED LIST changes: +HEPARIN SO5000 UNIT2 SUBQ; +LEVAQUIN500 MG ORAL; +MELATONIN1 M2 PO; +ROBITUSSIN COU237 M1 PO
[2018-09-11 12:15] VITALS: BP 106/64
--- NOTE | 2018-09-11 12:25 | Emergency Room Report ---
History of Present Illness General Chief Complaint: General Complaint Source: Medical Record Present Illness HPI 88-year-old male with history of dementia sent from long term for a fall, apparently patient has contusion on his forehead, and there is no much other details be given as patient is demented. I was called by Dr. Elizabeth who gave me this history. Allergies: Coded Allergies: No Known Allergies (Unverified , 03/19/17) Patient History Limited by: medical condition Past Medical History: see triage record Reviewed Nursing Documentation: PMH: Agreed; PSxH: Agreed Nursing Documentation-PMH Past Medical History: No History, Except For Hx Cardiac Problems: Yes Hx Hypertension: Yes Hx Diabetes: Yes Hx Cancer: No Hx Gastrointestinal Problems: No - hemmorhage of anus and rectum, acute kidney failure, hypomagnesemia Hx Dialysis: No - ACUTE KIDNEY FAILURE Hx Neurological Problems: Yes - diffculty walking, muscle weakness Hx Cerebrovascular Accident: No - HIP FX Hx Dementia: Yes Hx Alzheimer's Disease: Yes Hx Weakness: Yes Review of Systems Constitutional: Denies: fever Eye: Denies: acuity changes Respiratory: Denies: cough, shortness of breath Cardiovascular: Denies: chest pain Gastrointestinal: Denies: nausea, vomiting Skin: Denies: rash Neurological: Denies: headache All Other Systems: limited Physical Exam Vital Signs Date Time Temp Pulse Resp B/P (MAP) Pulse Ox O2 Delivery O2 Flow Rate FiO2 09/11/18 12:06 98.4 90 18 112/63 96 Room Air General Appearance: well appearing, no apparent distress Head: normocephalic, atraumatic - except R frontal contusion Eyes: bilateral eye EOMI ENT: normal ENT inspection, hearing grossly normal, normal pharynx, no angioedema, normal voice, uvula midline, moist mucus membranes Neck: normal inspection, full range of motion, supple, no meningismus, no bony tend Respiratory: normal inspection, chest non-tender, lungs clear, normal breath sounds, no rhonchi, no respiratory distress, no retraction, no accessory muscle use, no wheezing, speaking full sentences Cardiovascular #1: normal inspection, regular rate, rhythm, no edema, no gallop , no JVD, no murmur, no rub Cardiovascular #2: 2+ radial (R), 2+ radial (L), 2+ dorsalis pedis (R), 2+ dorsalis pedis (L) Gastrointestinal: non tender, soft, no mass, non-distended, no guarding, no rebound Rectal: deferred Genitourinary: no CVA tenderness Musculoskeletal: normal inspection, back normal, normal range of motion, non- tender, no calf tenderness, pelvis stable 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 Otherwise MSK exam normal. labs, chest and pelvis x-ray, CT head and cervical spine, normal, will discharge. Pt with mechanical fall and we will discharge back to [facility] as per discussion with Dr. Elizabeth. Rhythm Strip Diag. Results Rhythm Strip Time: 14:15 EP Interpretation: yes Rate: 84 Rhythm: NSR, no PVC's, no ectopy Chest X-Ray Diagnostic Results Chest X-Ray Diagnostic Results : Chest X-Ray Ordered: Yes # of Views/Limited/Complete: 1 View Indication: Other - fall EP Interpretation: Yes Interpretation: no consolidation, no effusion, no pneumothorax, no acute cardiopulmonary disease Impression: No acute disease Electronically Signed by: Kinjal Shaw MD Other X-Ray Diagnostic Results Other X-Ray Diagnostic Results : X-Ray ordered: pelvis # of Views/Limited Vs Complete: 1 View Indication: Other - fall EP Interpretation: Yes Interpretation: no dislocation, no soft tissue swelling, no fractures, nonspecific bowel gas, other - L hip prosthesis with no fx Impression: No acute disease Electronically Signed by: Kinjal Shaw MD Last Vital Signs Date Time Temp Pulse Resp B/P (MAP) Pulse Ox O2 Delivery O2 Flow Rate FiO2 09/11/18 12:06 98.4 90 18 112/63 96 Room Air Disposition: XFER SNF Condition: Stable KINJAL SHAW M.D Sep 11, 2018 12:25
[2018-09-11 12:44] LABS: BASOPHILS % (AUTO) 1.1 % (0.0-2.0); EOSINOPHILS % (AUTO) 4.2 % (0.0-3.0); HEMOGLOBIN 15.2 G/DL (14.2-18.0); LYMPHOCYTES % (AUTO) 30.5 % (20.0-45.0); MEAN CORPUSCULAR VOLUME 91 FL (80-99); MONOCYTES % (AUTO) 9.7 % (1.0-10.0); NEUTROPHILS % (AUTO) 54.5 % (45.0-75.0); PLATELET COUNT 158 K/UL (150-450); RED BLOOD COUNT 4.97 M/UL (4.70-6.10); RED CELL DISTRIBUTION WIDTH 11.2 % (11.6-14.8); WHITE BLOOD COUNT 5.2 K/UL (4.8-10.8)
[2018-09-11 12:56] LABS: ANION GAP 7 mmol/L (5-15); BLOOD UREA NITROGEN 19 mg/dL (7-18); CARBON DIOXIDE 28 MMOL/L (21-32); CHLORIDE 106 MMOL/L (98-107); CREATININE 1.5 MG/DL (0.55-1.30); SODIUM 141 MMOL/L (136-145)
[2018-09-11 13:01] LABS: ALANINE AMINOTRANSFERASE 29 U/L (12-78); ALBUMIN 3.1 G/DL (3.4-5.0); ALBUMIN/GLOBULIN RATIO 0.7 (1.0-2.7); ALKALINE PHOSPHATASE 124 U/L (46-116); ASPARTATE AMINO TRANSFERASE 37 U/L (15-37); BILIRUBIN,TOTAL 0.5 MG/DL (0.2-1.0)
--- NOTE | 2018-09-11 13:37 | Diagnostic Imaging Report ---
Indication: Headache. Trauma Technique: Contiguous 5 mm thick transaxial imaging of the head obtained in a Siemens Sensation [address] scanner. Soft tissue and bone windows generated. Automatic Exposure Control was utilized. Total Dose length Product (DLP): 1372.[address] Dose Index Volume (CTDIvol): 70.38 mGy Comparison: none Findings: There is moderate prominence of the ventricles, basal cisterns, and cerebral sulci consistent with atrophy. Moderate, nonspecific, white matter hypoattenuation is noted throughout the brain consistent with chronic small vessel disease. There is no midline shift, edema, acute hemorrhage, mass effect, or abnormal extra-axial fluid collections. Bones and extra osseous soft tissues are unremarkable. Impression: No acute intracranial bleed, mass effect or edema. Moderate atrophy of the brain. Evidence of chronic small vessel disease involving white matter tracts. The CT scanner at [facility] is accredited by the [employer] and the scans are performed using dose optimization techniques as appropriate to a performed exam including Automatic Exposure control.
--- NOTE | 2018-09-11 13:45 | Diagnostic Imaging Report ---
Indication: Neck pain. Technique: Continuous helical imaging of the cervical spine was obtained transaxially from the skull base to the upper thoracic spine. 2-D coronal and sagittal reformatted images were obtained. Automatic Exposure Control was utilized. Total Dose length Product (DLP): 355.[address] Dose Index Volume (CTDIvol): 17.53 mGy Comparison: None Findings: There is no acute fracture or malalignment identified. There is no soft tissue swelling identified. Moderate uncovertebral arthritis is demonstrated at multiple levels. Some of the intervertebral discs show narrowing and osteophytes. Carotid calcifications noted at the bifurcation. Impression: No acute injury Moderate spondylosis Atherosclerotic vascular disease The CT scanner at [facility] is accredited by the [employer] and the scans are performed using dose optimization techniques as appropriate to a performed exam including Automatic Exposure control.
--- NOTE | 2018-09-11 13:54 | Diagnostic Imaging Report ---
Indication: pain Pelvic trauma and pain Findings: Single AP view of the pelvis was performed. Bones are osteopenic. There is a left dynamic hip screw. No acute fractures appreciated. Degenerative changes of the lower lumbar spine noted. Vascular calcifications are present. IMPRESSION: No acute injury appreciated
--- NOTE | 2018-09-11 13:54 | Diagnostic Imaging Report ---
Indication: Chest pain and trauma Comparison: 02/20/2018 A single view chest radiograph was obtained. Findings: No definite infiltrate or pulmonary vascular congestion identified. The heart is enlarged. The aorta is mildly enlarged consistent with atherosclerotic vascular disease. The bones are osteopenic. Impression: No acute disease
[2018-09-11 15:33] VITALS: BP 129/73
== END 2018-09-11 15:33 ==
LOC: EDBD 11:58 → EMR 12:32
DX: S00.83XA Contusion of other part of head, initial encounter (principal); W19.XXXA Unspecified fall, initial encounter; Y92.129 Unspecified place in nursing home as the place of occurrence of the external cause; G30.9 Alzheimer's disease, unspecified; F02.80 Dementia in other diseases classified elsewhere, unspecified severity, without behavioral disturbance, psychotic disturbance, mood disturbance, and anxiety; I10 Essential (primary) hypertension; E11.9 Type 2 diabetes mellitus without complications; M47.812 Spondylosis without myelopathy or radiculopathy, cervical region
CPT/HCPCS: 36415; 70450; 71045; 72125; 72170; 80053; 84484; 85025; 99284

== ENCOUNTER 2019-12-05 17:05 | Inpatient (IN) | payer MEDICAID ==
[~2019-12-05] VITALS: Ht 165.1 cm; Wt 80.4 kg
[2019-12-05] MEDS ORDERED: Ipratropium 0.02% Inh Soln 2.5ml UD HHN ONE (17:15)
[2019-12-05] MEDS ORDERED: Albuterol ud Inhalation HHN ONE (17:15)
[2019-12-05] MEDS ORDERED: Acetaminophen 650 MG SUPP RECTAL ONE (17:15)
--- NOTE | 2019-12-05 17:20 | Emergency Room Report ---
History of Present Illness General Chief Complaint: Dyspnea/Respdistress Source: Patient, Medical Record, EMS Present Illness HPI Patient is sent from [facility] because of fever. He was placed on oxygen because of hypoxia. Patient has Alzheimer's dementia and answers yes to most questions. He denies vomiting or diarrhea. He does say he has dysuria. Apparently Tylenol was given in the morning. Review of systems is unreliable. Patient last admitted August 2018. Problem list: 1. Viral upper respiratory infection plus or minus superimposed tracheobronchitis. 2. Bronchospasm and wheezing. 3. Acute kidney injury, unlikely chronic kidney disease. 4. Elevated BNP, but no evidence of heart failure. 5. Dementia. 6. 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 7. Diabetes. Final diagnosis was congestive heart failure Allergies: Coded Allergies: No Known Allergies (Unverified , 03/19/17) Patient History Limited by: medical condition Past Medical History: see triage record, old chart reviewed Social History: Denies: smoking Social History Narrative retirement facility -[facility] Reviewed Nursing Documentation: PMH: Agreed; PSxH: Agreed Nursing Documentation-PMH Hx Cardiac Problems: Yes Hx Hypertension: Yes Hx Diabetes: Yes Hx Cancer: No Hx Gastrointestinal Problems: No - hemmorhage of anus and rectum, acute kidney failure, hypomagnesemia Hx Dialysis: No - ACUTE KIDNEY FAILURE Hx Neurological Problems: Yes - diffculty walking, muscle weakness Hx Cerebrovascular Accident: No - HIP FX Hx Dementia: Yes Hx Alzheimer's Disease: Yes Hx Weakness: Yes Review of Systems All Other Systems: limited Physical Exam Vital Signs Date Time Temp Pulse Resp B/P (MAP) Pulse Ox O2 Delivery O2 Flow Rate FiO2 12/05/19 17:06 98.6 104 20 110/65 (80) 93 Nasal Cannula Sp02 EP Interpretation: reviewed, abnormal - Interpreted as low by me General Appearance: no apparent distress, Chronically Ill Head: normocephalic Eyes: bilateral eye PERRL, bilateral eye other - Arcus ENT: dry mucus membranes Neck: supple, no meningismus Respiratory: no respiratory distress, rhonchi Cardiovascular #1: regular rate, rhythm, edema - Trace Cardiovascular #2: 2+ radial (L) Gastrointestinal: non tender, decreased bowel sounds Genitourinary: no CVA tenderness Musculoskeletal: back normal, moves extm spontaneously Neurologic: alert, sensory intact, motor weakness Psychiatric: depressed affect, other - Her recent memory Skin: warm/dry - Feels hot Medical Decision Making Diagnostic Impression: Primary Impression: Sepsis Qualified Codes: A41.9 - Sepsis, unspecified organism; R65.20 - Severe sepsis without septic shock; N17.9 - Acute kidney failure, unspecified Additional Impressions: Left lower lobe pneumonia Qualified Codes: J18.9 - Pneumonia, unspecified organism Alzheimer's dementia Qualified Codes: G30.9 - Alzheimer's disease, unspecified; F02.80 - Dementia in other diseases classified elsewhere without behavioral disturbance Renal failure (ARF), acute on chronic Qualified Codes: N17.9 - Acute kidney failure, unspecified; N18.3 - Chronic kidney disease, stage 3 (moderate) UTI (urinary tract infection) Qualified Codes: N39.0 - Urinary tract infection, site not specified Hyperglycemia ER Course Patient presents with fever and hypoxia. Differential includes pneumonia, sepsis, urinary tract infection, exacerbation of CHF, acute myocardial infarction, electrolyte imbalance amongst others. Patient was evaluated with EKG, chest x-ray and labs. Patient placed on supplemental oxygen. Breathing treatment ordered. IV hydration begun. Sinus tachycardia nonspecific ST-T wave changes. X-ray left lower lobe pneumonia SEPSIS RE-EVALUATION: Patient less tachycardic. Capillary fill good. Mentation slightly improved. Called with lactic acid of 5 by lab. Sepsis resuscitation already begun and antibiotics ordered. IJerel MD, Performed the Sepsis Re-evaluation at 18:25. 2140 sepsis re-eval. Lactic acid increased. Increased to 30 ml/kg (had been judicious due to CHF history and elevated BNP). Patient admitted telemetry. Laboratory Tests Test 12/05/19 17:40 12/05/19 18:32 12/05/19 18:40 White Blood Count 15.9 K/UL (4.8-10.8) H Red Blood Count 4.75 M/UL (4.70-6.10) Hemoglobin 14.7 G/DL (14.2-18.0) Hematocrit 42.9 % (42.0-52.0) Mean Corpuscular Volume 90 FL (80-99) Mean Corpuscular Hemoglobin 31.0 PG (27.0-31.0) Mean Corpuscular Hemoglobin Concent 34.2 G/DL (32.0-36.0) Red Cell Distribution Width 12.0 % (11.6-14.8) Platelet Count 169 K/UL (150-450) Mean Platelet Volume 7.5 FL (6.5-10.1) Neutrophils (%) (Auto) % (45.0-75.0) Lymphocytes (%) (Auto) % (20.0-45.0) Monocytes (%) (Auto) % (1.0-10.0) Eosinophils (%) (Auto) % (0.0-3.0) Basophils (%) (Auto) % (0.0-2.0) Differential Total Cells Counted 100 Neutrophils % (Manual) 87 % (45-75) H Lymphocytes % (Manual) 7 % (20-45) L Monocytes % (Manual) 4 % (1-10) Eosinophils % (Manual) 0 % (0-3) Basophils % (Manual) 0 % (0-2) Band Neutrophils 2 % (0-8) Platelet Estimate Adequate Platelet Morphology Normal Red Blood Cell Morphology Normal Prothrombin Time 12.3 SEC (9.30-11.50) H Prothrombin Time INR 1.2 (0.9-1.1) H Activated Partial Thromboplast Time 31 SEC (23-33) Sodium Level 141 MMOL/L (136-145) Potassium Level 4.1 MMOL/L (3.5-5.1) Chloride Level 103 MMOL/L (98-107) Carbon Dioxide Level 25 MMOL/L (21-32) Anion Gap 13 mmol/L (5-15) Blood Urea Nitrogen 39 mg/dL (7-18) H Creatinine 2.6 MG/DL (0.55-1.30) H Estimate Glomerular Filtration Rate mL/min (>60) Glucose Level 295 MG/DL (74-106) H Lactic Acid Level 5.30 mmol/L (0.4-2.0) H 5.90 mmol/L (0.66-2.22) H Calcium Level 8.7 MG/DL (8.5-10.1) Total Bilirubin 6.6 MG/DL (0.2-1.0) H Direct Bilirubin 5.5 MG/DL (0.0-0.3) H Aspartate Amino Transferase (AST) 106 U/L (15-37) H Alanine Aminotransferase (ALT) 83 U/L (12-78) H Alkaline Phosphatase 390 U/L (46-116) H Total Creatine Kinase 138 U/L (26-308) Troponin I 0.000 ng/mL (0.000-0.056) Pro-B-Type Natriuretic Peptide 4188 pg/mL (0-125) H Total Protein 7.6 G/DL (6.4-8.2) Albumin 2.5 G/DL (3.4-5.0) L Globulin 5.1 g/dL Albumin/Globulin Ratio 0.5 (1.0-2.7) L Urine Color Brown Urine Appearance Clear Urine pH 8 (4.5-8.0) Urine Specific [place] 1.010 (1.005-1.035) Urine Protein 3+ (NEGATIVE) H Urine Glucose (UA) Negative (NEGATIVE) Urine Ketones Negative (NEGATIVE) Urine Blood 4+ (NEGATIVE) H Urine Nitrite Negative (NEGATIVE) Urine Bilirubin 2+ (NEGATIVE) H Urine Ictotest Positive (NEGATIVE) Urine Urobilinogen 8 MG/DL (0.0-1.0) H Urine Leukocyte Esterase 3+ (NEGATIVE) H Urine RBC 10-15 /HPF (0 - 0) H Urine WBC 5-10 /HPF (0 - 0) H Urine Squamous Epithelial Cells None /LPF (NONE/OCC) Urine Bacteria Moderate /HPF (NONE) H Microbiology Date/Time Source Procedure Growth Status 12/05/19 17:40 Nasal Nares - Final Complete 12/05/19 17:40 Nasal Nares - Final Complete EKG Diagnostic Results Rate: tachycardiac Rhythm: NSR ST Segments: no acute changes - Flattened T waves Rhythm Strip Diag. Results EP Interpretation: yes Rhythm: no PVC's, no ectopy, other - Sinus tachycardia Chest X-Ray Diagnostic Results Chest X-Ray Diagnostic Results : Chest X-Ray Ordered: Yes # of Views/Limited/Complete: 1 View Indication: Other EP Interpretation: Yes Interpretation: no effusion, no pneumothorax, other - Left lower lobe infiltrate Impression: Other Electronically Signed by: Electronically signed by Jerel Montgomery MD Last Vital Signs Date Time Temp Pulse Resp B/P (MAP) Pulse Ox O2 Delivery O2 Flow Rate FiO2 12/06/19 00:00 96 12/06/19 00:00 99.0 20 109/71 (84) 98 12/06/19 00:00 Nasal Cannula 3.0 12/05/19 22:00 28 Status: improved Disposition: ADMITTED INPATIENT Condition: Serious Jerel Montgomery MD Dec 05, 2019 17:20
[2019-12-05 17:25] VITALS: BP 118/70
--- NOTE | 2019-12-05 17:45 | NUR ---
ED Nurse Note: pt brought in to ER by ambulance from [facility] due to congestion x2 weeks. pt aao x1 to name only and bedridden. calm and able to follow commands. congestion and wheezing noted on bilateral lungs and pt is having difficulty to clear thick secretion. hot to touch, SOB noted. pt is on 2L/min via NC and saturating at 99%. 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
[2019-12-05] MEDS ORDERED: Piperacillin/Tazobactam 3.375 GM in NS 110 ML IVPB ONE (18:00)
[2019-12-05] MEDS ORDERED: Vancomycin 1 GM in NS 275 ML IVPB ONE (18:00)
[2019-12-05 18:07] LABS: INR 1.2 (0.9-1.1)
[2019-12-05 18:09] LABS: ANION GAP 13 mmol/L (5-15); BLOOD UREA NITROGEN 39 mg/dL (7-18); CALCIUM 8.7 MG/DL (8.5-10.1); CARBON DIOXIDE 25 MMOL/L (21-32); CHLORIDE 103 MMOL/L (98-107); CREATININE 2.6 MG/DL (0.55-1.30); POTASSIUM 4.1 MMOL/L (3.5-5.1); SODIUM 141 MMOL/L (136-145)
[2019-12-05 18:12] LABS: HEMATOCRIT 42.9 % (42.0-52.0); HEMOGLOBIN 14.7 G/DL (14.2-18.0); MEAN CORPUSCULAR VOLUME 90 FL (80-99); PLATELET COUNT 169 K/UL (150-450); RED BLOOD COUNT 4.75 M/UL (4.70-6.10); WHITE BLOOD COUNT 15.9 K/UL (4.8-10.8)
[2019-12-05 18:26] LABS: ALANINE AMINOTRANSFERASE 83 U/L (12-78); ALBUMIN 2.5 G/DL (3.4-5.0); ALBUMIN/GLOBULIN RATIO 0.5 (1.0-2.7); ALKALINE PHOSPHATASE 390 U/L (46-116); ASPARTATE AMINO TRANSFERASE 106 U/L (15-37); BILIRUBIN,TOTAL 6.6 MG/DL (0.2-1.0); CREATINE KINASE 138 U/L (26-308)
[2019-12-05 18:39] LABS: BILIRUBIN,DIRECT 5.5 MG/DL (0.0-0.3)
--- NOTE | 2019-12-05 18:40 | NUR ---
ED Nurse Note: Urine sent to lab.
--- NOTE | 2019-12-05 19:16 | NUR ---
HAND-OFF: Report given to JAMAICA Pollock. vancomycin needs to be initiated after Levaquin and lactic reflux will be drawn after Levaquin. posterior skin needs to be checked.
[2019-12-05 19:25] LABS: APPEARANCE,URINE CLEAR; BILIRUBIN, URINE 2+ (NEGATIVE); COLOR,URINE BROWN; GLUCOSE, URINE (UA) NEGATIVE (NEGATIVE); KETONES,URINE NEGATIVE (NEGATIVE); LEUKOCYTE ESTERASE ,URINE 3+ (NEGATIVE); NITRITE,URINE NEGATIVE (NEGATIVE); PH,URINE 8 (4.5-8.0); PROTEIN,URINE 3+ (NEGATIVE); UROBILINOGEN,URINE 8 MG/DL (0.0-1.0)
[2019-12-05 21:00] VITALS: BP 134/78
--- NOTE | 2019-12-05 21:00 | NUR ---
ED Nurse Note: Pt resting with eyes closed, non-labored breathing, no signs of distress, IV fluids and Vanco running per order, will continue to monitor
[2019-12-05] MEDS ORDERED: Sodium Chloride 2,200 ML IVLG ONE (21:45)
--- NOTE | 2019-12-05 22:00 | NUR ---
TRANSFER TO FLOOR: Patient transferred to as ordered, per Dr Elizabeth. Report given Kin, RN. Belongings and medications given to . Family and or S/O informed of transfer.
--- NOTE | 2019-12-05 22:05 | NUR ---
NURSE NOTES: Given report from JAMAICA oPllock. Pt admitted from ER. Pt is awake and confused. On O2 3L via nasal cannula and SaO2 95% noted. Iv site intact and no sign of infiltration noted. Denied pain at this time. Applied Tele monitor . Cleaned Pt and applied lotion and cream. No open wound noted. Checked belonging list. Given admission instruction. No fever noted. Noted Lactic acid 5.9. Placed fall precaution. Will continue to care plan and left message to Dr. Elizabeth for admission order and awaiting call back.
[2019-12-05 22:10] VITALS: BP 129/71
[2019-12-05] MEDS ORDERED: CRANBERRY450 M5 PO (22:46)
[2019-12-05] MEDS ORDERED: CARDIZEM30 M1 PO (22:48)
[2019-12-05] MEDS ORDERED: HUMALOG100 UNIT/3 SUBQ (22:57)
[2019-12-05] MEDS ORDERED: TYLENOL325 MG ORAL (22:57)
[2019-12-05] MEDS ORDERED: RISPERDAL0.5 MG ORAL ×2 (22:57)
[2019-12-05] MEDS ORDERED: PRO-STAT LIQUID30 ML ORAL (22:57)
[2019-12-05] MEDS ORDERED: FLOMAX0.4 MG ORAL (22:57)
[2019-12-05] MEDS ORDERED: POTASSIUM CHLO20 ME3 PO (22:57)
[2019-12-05] MEDS ORDERED: Albuterol/Ipratropium 3ml neb HHN PRN (23:15)
--- NOTE | 2019-12-05 23:15 | History and Physical Report ---
DATE OF ADMISSION: 12/05/2019 HISTORY OF PRESENT ILLNESS: The patient is admitted for pneumonia. The patient is a poor historian, cannot get any reliable history. Also, the patient is admitted for elevated LFTs and acute renal failure as well as sepsis and fever at the snf, left lower lobe pneumonia on the x-ray, congested at the snf as well as altered, admitted for all those reasons. Cannot get any history from the patient. PAST MEDICAL HISTORY: The patient has advanced dementia, constipation, history of insomnia and CHF, and history of chronic renal insufficiency. PAST SURGICAL HISTORY: Denies. ALLERGIES: No known allergies. MEDICATIONS: Bisacodyl, Colace, ferrous sulfate, benazepril, melatonin, and trazodone. FAMILY HISTORY: Noncontributory. SOCIAL HISTORY: Unable to obtain. REVIEW OF SYSTEMS: Unable to obtain. The patient is a poor historian. PHYSICAL EXAMINATION: VITAL SIGNS: Temperature is 98.6, pulse is 104, and blood pressure is 110/65. HEENT: PERRLA. NECK: Supple. No lymphadenopathy. CHEST: Bibasilar rhonchi. CARDIOVASCULAR: Tachycardic. GASTROINTESTINAL: Soft. Positive bowel sounds. No organomegaly. ABDOMEN: Soft. EXTREMITIES: No edema. Reflexes in both sides. Does not follow neurological exam, more altered than his baseline. LABORATORY DATA: Laboratory hernandez, WBC of 15.9, hemoglobin of 14.7, and platelets 169,000. Sodium 141, potassium 4.1, BUN of 39, creatinine 2.6, and glucose of 295. Lactic acid of 5.3. Total bilirubin of 6.6. AST of 106, ALT of 83, and alkaline phosphatase of 390. ASSESSMENT AND PLAN: Pneumonia on the x-ray, elevated LFTs, acute renal failure, sepsis, fever, and pneumonia. I have asked Dr. Ashraf, Dr. Escalante, Dr. Reynoso, Dr. Lincoln, and Dr. Enrike Hadley to see the patient. They also helped for the above-mentioned diagnoses and symptoms and abnormalities as well. Antibiotics per Dr. Enrike Hadley. Dr. Lincoln has also been consulted for pneumonia and we will also rule out congestive heart failure. Dr. Moore will help with that as well and Dr. Ashraf has been also consulted for the acute renal failure and Dr. Escalante has been consulted to help with finding etiology of the LFTs elevations. Gurmeet Elizabeth M.D. DR: MOLINA JOB#: [id number] CC:
[2019-12-06] VITALS: BP 109/71
[2019-12-06 03:11] LABS: ALANINE AMINOTRANSFERASE 65 U/L (12-78); ALBUMIN 2.1 G/DL (3.4-5.0); ALBUMIN/GLOBULIN RATIO 0.5 (1.0-2.7); ALKALINE PHOSPHATASE 307 U/L (46-116); ANION GAP 12 mmol/L (5-15); ASPARTATE AMINO TRANSFERASE 72 U/L (15-37); BILIRUBIN,TOTAL 6.6 MG/DL (0.2-1.0); BLOOD UREA NITROGEN 35 mg/dL (7-18); CALCIUM 7.9 MG/DL (8.5-10.1); CARBON DIOXIDE 23 MMOL/L (21-32); CHLORIDE 109 MMOL/L (98-107); POTASSIUM 3.8 MMOL/L (3.5-5.1); SODIUM 143 MMOL/L (136-145)
[2019-12-06 03:17] LABS: HEMATOCRIT 39.2 % (42.0-52.0); HEMOGLOBIN 13.4 G/DL (14.2-18.0); MEAN CORPUSCULAR VOLUME 91 FL (80-99); PLATELET COUNT 148 K/UL (150-450); RED BLOOD COUNT 4.31 M/UL (4.70-6.10); RED CELL DISTRIBUTION WIDTH 12.2 % (11.6-14.8); WHITE BLOOD COUNT 15.8 K/UL (4.8-10.8)
[2019-12-06 03:21] LABS: BILIRUBIN,DIRECT 5.7 MG/DL (0.0-0.3)
[2019-12-06 04:00] VITALS: BP 106/57
--- NOTE | 2019-12-06 07:42 | NUR ---
HAND-OFF: Report given to JAMAICA Haynes. Pt is sleeping on the bed and no sign of acute distress noted.
--- NOTE | 2019-12-06 07:50 | NUR ---
NURSE NOTES: received pt in the bed, awake, confused, vital signs stable, no co pain, no SOB, skin warm and dry to touch, intact, respiration regular, NPO, condom catheter, bed in low position, call light within reach.
[2019-12-06 08:00] VITALS: BP 108/58
[2019-12-06 12:00] VITALS: BP 95/44
--- NOTE | 2019-12-06 12:24 | Diagnostic Imaging Report ---
Indication: Dyspnea Comparison: 09-11-18 A single view chest radiograph was obtained. Findings: The lungs are hypoinflated and as such limited in evaluation. Cardiac silhouette is accentuated and prominent. Bronchovascular markings are also prominent. Some degree of mild CHF is somewhat difficult to exclude. Correlate clinically. IMPRESSION: Limited evaluation. Mild CHF not excludable. Correlate clinically
[2019-12-06] MEDS: Piperacillin/Tazobactam 3.375 GM in NS 110 ML IVPB SCH ×2 (13:57→21:40)
[2019-12-06] MEDS: dilTIAZem HCl 30mg tab ORAL SCH ×2 (14:00→22:00)
--- NOTE | 2019-12-06 14:00 | NUR ---
NURSE NOTES: pt resting, no co pain, tolerate diet well, bed bath given, repositioned, continue monitoring.
--- NOTE | 2019-12-06 14:30 | Consultation ---
DATE OF CONSULTATION: 12/06/2019 PULMONARY CONSULTATION CONSULTING PHYSICIAN: Kevin Lincoln M.D. REASON FOR CONSULT: CHF/pneumonia. HISTORY OF PRESENT ILLNESS: This is an 89-year-old male who has been transferred from [facility] because of fever. He states he was placed on oxygen because of hypoxemia. The patient is unable to provide any clear history. Currently, he is saturating well on nasal oxygen. The patient has dementia and unable to provide any clear history. PAST MEDICAL HISTORY: Notable for history of previous bronchospasm, history of acute kidney injury, dementia, diabetes mellitus, CHF. CURRENT MEDICATIONS: Include Cardizem, DuoNeb, Risperdal. REVIEW OF SYSTEMS: Unreliable. PREVIOUS SURGERIES: Hip fracture. PHYSICAL EXAMINATION: GENERAL: Reveals an 89-year-old male. HEENT: Unremarkable. LUNGS: Clear breath sounds bilaterally with normal heart sounds. ABDOMEN: Soft. EXTREMITIES: There is no appreciable edema. VITAL SIGNS: O2 saturation 96% on 3 L of oxygen, blood pressure , heart rate 104, respirations 18, afebrile. LABORATORY DATA: Lab testing shows white count 15,000, hemoglobin of 13, platelet count is 148,000. negative. Lactic acid 5.3, now 2.7. Creatinine of 2. Urinalysis shows pyuria. IMAGING STUDIES: Per ER documentation shows a finding suspicious for left lower lobe pneumonia. IMPRESSION: 1. Left lower lobe pneumonia. 2. Sepsis with lactic acidemia. 3. Acute renal insufficiency. 4. History of CHF. 5. Dementia. DISCUSSION: Fluid resuscitation will be ordered. The patient needs broad-spectrum antibiotics. He has received Levaquin in the emergency room as well as Zosyn. I will initiate Zosyn therapy and also requires vancomycin. We will follow carefully as respiratory actuarial consultant. Kevin Lincoln M.D. DR: HUMA JOB#: [id number] CC:
--- NOTE | 2019-12-06 14:33 | Consultation ---
Consult Note Consult Note asked to eval for renal failure- Seen in Rm [id number]- examined not historian ER: Patient is sent from [facility] because of fever. He was placed on oxygen because of hypoxia. Patient has Alzheimer's dementia and answers yes to most questions. He denies vomiting or diarrhea. He does say he has dysuria. Apparently Tylenol was given in the morning. Review of systems is unreliable. Patient last admitted August 2018. Problem list: 1. Viral upper respiratory infection plus or minus superimposed tracheobronchitis. 2. Bronchospasm and wheezing. 3. Acute kidney injury, unlikely chronic kidney disease. 4. Elevated BNP, but no evidence of heart failure. 5. Dementia. 6. 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 7. Diabetes. Final diagnosis was congestive heart failure No Known Allergies (Unverified , 03/19/17) Assessment/Plan Acute on Chronic renal failure- CHF- Past echo 55% EjFx Sepsis, High Lactate- Leukocytosis Left lower lobe pneumonia Alzheimer's dementia UTI (urinary tract infection) Hyperglycemia, DM II 2D echo slow hydrate BP and BS in check per orders Jose Ashraf MD Dec 06, 2019 14:33
--- NOTE | 2019-12-06 15:00 | Cardiac Electrophysiology PN ---
Subjective Subjective [id number] Objective Last 24 Hour Vital Signs Date Time Temp Pulse Resp B/P (MAP) Pulse Ox O2 Delivery O2 Flow Rate FiO2 12/06/19 14:00 102 95/44 12/06/19 12:00 99.1 110 24 95/44 (61) 96 12/06/19 12:00 102 12/06/19 12:00 Nasal Cannula 3.0 12/06/19 08:00 102 12/06/19 08:00 Nasal Cannula 3.0 12/06/19 08:00 97.4 98 16 108/58 (75) 96 12/06/19 04:00 Nasal Cannula 3.0 12/06/19 04:00 88 12/06/19 04:00 98.7 92 20 106/57 (73) 97 12/06/19 00:00 96 12/06/19 00:00 99.0 77 20 109/71 (84) 98 12/06/19 00:00 Nasal Cannula 3.0 12/05/19 22:30 Nasal Cannula 3.0 12/05/19 22:10 98.8 107 20 129/71 (90) 96 12/05/19 22:00 98.3 90 20 134/78 99 Nasal Cannula 2.0 28 12/05/19 21:00 98.3 90 20 134/78 99 Nasal Cannula 2.0 28 12/05/19 18:44 98.0 12/05/19 17:34 103 24 99 Nasal Cannula 2.0 28 105 21 97 12/05/19 17:25 98.6 92 20 118/70 96 Nasal Cannula 12/05/19 17:25 104 20 Room Air 12/05/19 17:06 98.6 104 20 110/65 (80) 93 Nasal Cannula Intake and Output 12/05/19 12/06/19 19:00 07:00 Intake Total 110 ml 1625 ml Output Total 700 ml Balance 110 ml 925 ml Intake Oral 0 ml IV Total 110 ml 1625 ml Output Urine Total 700 ml # Bowel Movements 1 Laboratory Tests Test 12/05/19 17:40 12/05/19 18:32 12/05/19 18:40 12/06/19 02:25 White Blood Count 15.9 K/UL (4.8-10.8) H 15.8 K/UL (4.8-10.8) H Red Blood Count 4.75 M/UL (4.70-6.10) 4.31 M/UL (4.70-6.10) L Hemoglobin 14.7 G/DL (14.2-18.0) 13.4 G/DL (14.2-18.0) L Hematocrit 42.9 % (42.0-52.0) 39.2 % (42.0-52.0) L Mean Corpuscular Volume 90 FL (80-99) 91 FL (80-99) Mean Corpuscular Hemoglobin 31.0 PG (27.0-31.0) 31.1 PG (27.0-31.0) H Mean Corpuscular Hemoglobin Concent 34.2 G/DL (32.0-36.0) 34.1 G/DL (32.0-36.0) Red Cell Distribution Width 12.0 % (11.6-14.8) 12.2 % (11.6-14.8) Platelet Count 169 K/UL (150-450) 148 K/UL (150-450) L Mean Platelet Volume 7.5 FL (6.5-10.1) 7.2 FL (6.5-10.1) Neutrophils (%) (Auto) % (45.0-75.0) % (45.0-75.0) Lymphocytes (%) (Auto) % (20.0-45.0) % (20.0-45.0) Monocytes (%) (Auto) % (1.0-10.0) % (1.0-10.0) Eosinophils (%) (Auto) % (0.0-3.0) % (0.0-3.0) Basophils (%) (Auto) % (0.0-2.0) % (0.0-2.0) Differential Total Cells Counted 100 Neutrophils % (Manual) 87 % (45-75) H Lymphocytes % (Manual) 7 % (20-45) L Monocytes % (Manual) 4 % (1-10) Eosinophils % (Manual) 0 % (0-3) Basophils % (Manual) 0 % (0-2) Band Neutrophils 2 % (0-8) Platelet Estimate Adequate Platelet Morphology Normal Red Blood Cell Morphology Normal Prothrombin Time 12.3 SEC (9.30-11.50) H Prothromb Time International Ratio 1.2 (0.9-1.1) H Activated Partial Thromboplast Time 31 SEC (23-33) Sodium Level 141 MMOL/L (136-145) 143 MMOL/L (136-145) Potassium Level 4.1 MMOL/L (3.5-5.1) 3.8 MMOL/L (3.5-5.1) Chloride Level 103 MMOL/L (98-107) 109 MMOL/L (98-107) H Carbon Dioxide Level 25 MMOL/L (21-32) 23 MMOL/L (21-32) Anion Gap 13 mmol/L (5-15) 12 mmol/L (5-15) Blood Urea Nitrogen 39 mg/dL (7-18) H 35 mg/dL (7-18) H Creatinine 2.6 MG/DL (0.55-1.30) H 2.0 MG/DL (0.55-1.30) H Estimat Glomerular Filtration Rate mL/min (>60) mL/min (>60) Glucose Level 295 MG/DL (74-106) H 242 MG/DL (74-106) H Lactic Acid Level 5.30 mmol/L (0.4-2.0) H 5.90 mmol/L (0.66-2.22) H 2.90 mmol/L (0.4-2.0) H Calcium Level 8.7 MG/DL (8.5-10.1) 7.9 MG/DL (8.5-10.1) L Total Bilirubin 6.6 MG/DL (0.2-1.0) H 6.6 MG/DL (0.2-1.0) H Direct Bilirubin 5.5 MG/DL (0.0-0.3) H 5.7 MG/DL (0.0-0.3) H Aspartate Amino Transf (AST/SGOT) 106 U/L (15-37) H 72 U/L (15-37) H Alanine Aminotransferase (ALT/SGPT) 83 U/L (12-78) H 65 U/L (12-78) Alkaline Phosphatase 390 U/L (46-116) H 307 U/L (46-116) H Total Creatine Kinase 138 U/L (26-308) Troponin I 0.000 ng/mL (0.000-0.056) Pro-B-Type Natriuretic Peptide 4188 pg/mL (0-125) H Total Protein 7.6 G/DL (6.4-8.2) 6.7 G/DL (6.4-8.2) Albumin 2.5 G/DL (3.4-5.0) L 2.1 G/DL (3.4-5.0) L Globulin 5.1 g/dL 4.6 g/dL Albumin/Globulin Ratio 0.5 (1.0-2.7) L 0.5 (1.0-2.7) L Urine Color Brown Urine Appearance Clear Urine pH 8 (4.5-8.0) Urine Specific [place] 1.010 (1.005-1.035) Urine Protein 3+ (NEGATIVE) H Urine Glucose (UA) Negative (NEGATIVE) Urine Ketones Negative (NEGATIVE) Urine Blood 4+ (NEGATIVE) H Urine Nitrite Negative (NEGATIVE) Urine Bilirubin 2+ (NEGATIVE) H Urine Ictotest Positive (NEGATIVE) Urine Urobilinogen 8 MG/DL (0.0-1.0) H Urine Leukocyte Esterase 3+ (NEGATIVE) H Urine RBC 10-15 /HPF (0 - 0) H Urine WBC 5-10 /HPF (0 - 0) H Urine Squamous Epithelial Cells None /LPF (NONE/OCC) Urine Bacteria Moderate /HPF (NONE) H Test 12/06/19 08:45 Lactic Acid Level 2.70 mmol/L (0.4-2.0) H Microbiology Date/Time Source Procedure Growth Status 12/05/19 17:40 Nasal Nares - Final Complete 12/05/19 17:40 Nasal Nares - Final Complete 12/05/19 18:40 Urine,Clean Catch Urine Culture - Preliminary Resulted 12/05/19 18:30 Rectum Received Kyle Reynoso MD Dec 06, 2019 15:00
--- NOTE | 2019-12-06 15:15 | Consultation ---
DATE OF CONSULTATION: 12/06/2019 INFECTIOUS DISEASE CONSULTATION CONSULTING PHYSICIAN: Enrike Hadley M.D. PRIMARY ATTENDING PHYSICIAN: Gurmeet Elizabeth M.D. REASON FOR CONSULTATION: Sepsis, pneumonia. HISTORY OF PRESENT ILLNESS: This is an 89-year-old male, admitted from a nursing facility because of fever. He was hypoxemic, tachycardic, had lactic acidosis, and leukocytosis. He was admitted with impression of severe sepsis and pneumonia. The patient is a poor historian. PAST MEDICAL HISTORY: Significant for Alzheimer dementia, diabetes mellitus, hypertension, BPH, COPD, acute renal failure. PAST SURGICAL HISTORY: Left hip replacement. ALLERGIES: No known drug allergies. MEDICATIONS: Cardizem, Zosyn, vancomycin, Risperdal, albuterol, ipratropium inhaler, get a dose of Levaquin in the ER. SOCIAL HISTORY: Originally from [place]. Lives in snf. , has 11 kids. REVIEW OF SYSTEMS: Very limited. He is just nodding mostly. PHYSICAL EXAMINATION: VITAL SIGNS: Temperature 97.4, pulse 98, blood pressure 108/58. Pulse at the time of admission was 104 and went up to 107. GENERAL APPEARANCE: Seems to be well-developed. HEAD AND NECK: [place] conjunctivae. HEART: Normal rate. LUNGS: Clear. ABDOMEN: Soft, nontender. EXTREMITIES: Have no edema. SKIN: Has icterus. NEUROLOGIC: He is awake, responsive. LABORATORY AND DIAGNOSTIC DATA: Sodium 143, potassium 3.8, chloride 109, bicarb 23, BUN 35, creatinine 2, glucose 242. Lactic acid was 5.3 at the time of admission, currently is 2.7. Total bilirubin 6.6, direct bilirubin is 5.7. AST is 72, alkaline phosphatase is 307. WBC 15.8, hemoglobin 13.4, hematocrit 39.2, and platelet 148,000. Rapid flu test was negative. Urine culture is pending. UA showed wbc's of 5 to 10, rbc's of 10 to 15, bilirubin 2+, nitrite negative, bacteria moderate. Chest x-ray shows some parahilar congestion, but official report is pending. IMPRESSION: Severe sepsis with tachycardia, lactic acidosis, leukocytosis, may have pneumonia, may have obstructive jaundice, has pyuria and bacteriuria, may have UTI, has diabetes mellitus, hypertension, Alzheimer dementia, acute renal failure. RECOMMENDATION: We will continue with Zosyn and vancomycin. We will follow up the cultures. We will order abdominal ultrasound to rule out cholecystitis and kidney stone. At the end of my exam, I thank Dr. Elizabeth for involving me in the care of this patient. Enrike Hadley M.D. DR: TERI JOB#: [id number] CC: LILY
--- NOTE | 2019-12-06 15:22 | NUR ---
CASE MANAGEMENT:INITIAL REVIEW 53 YR OLD MALE BIBA FROM [facility] CC;DYSPNEA. REPIRATORY DISTRESS. SI;PNA 98.6 104 20 110/65 93% NC WBC 15.9 BUN 39 CREAT 2.6 BG 295 T-BILI 6.6 AST 106 ALT 83 BNP 4188 LAC ACID 5.90 TROP=NEG CXR - Limited evaluation. Mild CHF not excludable. Correlate clinically IS;ACETAMINOPHEN SUPP RECTAL X1 VONCOMYCIN IV X1 ZOSYN IV X1 LEVAQUIN IN X1 ADMITTED TO SDU SDU STATUS DCP; [facility]
--- NOTE | 2019-12-06 15:32 | GI Initial Consult Note ---
History of Present Illness General Date patient seen: Dec 06, 2019 Time patient seen: 15:31 Reason for Hospitalization: Dyspnea/Respdistress Referring physician: RAMIREZ PEREZ Reason for Consultation: ELEVATED LFTs Present Illness HPI Patient is sent from [facility] because of fever. He was placed on oxygen because of hypoxia. Patient has Alzheimer's dementia and answers yes to most questions. He denies vomiting or diarrhea. He does say he has dysuria. Apparently Tylenol was given in the morning. Review of systems is unreliable. GI consulted for elevated LFTs. ROS limited, patient with history of dementia. Labs reviewed; total bilirubin 6.6, direct bilirubin 5.7, AST 72, ALT 65, alkaline phosphatase 307, creatinine 2.0. At this time abdominal ultrasound is pending. Patient has history of colonoscopy July 2017 notable for distal colitis. Home Meds Reported Medications Tamsulosin HCl (Flomax) 0.4 Mg Cap.er.24h, 0.4 MG ORAL DAILY for BPH, CAP 12/05/19 Acetaminophen (Tylenol) 325 Mg Tablet, 650 MG ORAL Q4HR PRN for Mild Pain/Temp > 100.5, #30 TAB 0 Refills 12/05/19 Risperidone* (RISPERDAL*) 0.5 Mg Tablet, 0.5 MG ORAL QHS for SHEZOPHRENIA, #30 TAB 0 Refills 12/05/19 Risperidone* (RISPERDAL*) 0.5 Mg Tablet, 0.5 MG ORAL DAILY for SCHEZOPHRENIA, # 30 TAB 0 Refills 12/05/19 Amino Acids/Protein Hydrolys (PRO-STAT LIQUID) 30 Ml Liquid.pkt, 30 ML ORAL DAILY for LOW ALBUMIN, ML 12/05/19 Potassium Chloride (Potassium Chloride) 20 Meq Tablet.er, 20 MEQ PO DAILY for K suppliment, TAB 12/05/19 Insulin Lispro (HUMALOG) 100 Unit/1 Ml Insuln.pen, 0 SUBQ for DM, #1 EA 0 Refills 12/05/19 Diltiazem Hcl* (CARDIZEM*) 30 Mg Tablet, 30 MG PO Q8HR for htn, TAB 12/05/19 Cranberry Fruit (CRANBERRY) 450 Mg Tablet, 900 MG PO BID for uti, TAB 12/05/19 Magnesium Hydroxide* (MILK OF MAGNESIA*) 400 Mg/5 Ml Oral.susp, 30 ML ORAL DAILY PRN for Constipation, ML 03/19/17 Na Phos,M-B/Na Phos,Di-Ba* (FLEET ENEMA*) 133 Ml Enema, 133 ML RECTAL EVERY OTHER DAY PRN for Constipation, ML 0 Refills 03/19/17 Bisacodyl* (DULCOLAX*) 5 Mg Tablet.dr, 10 MG RECTAL DAILY PRN for Constipation, #10 TAB 0 Refills 03/19/17 Docusate Sodium* (COLACE*) 100 Mg Capsule, 100 MG ORAL DAILY, CAP 03/19/17 Aspirin* (ASPIR 81*) 81 Mg Tablet.dr, 81 MG ORAL DAILY, TAB 03/19/17 Discontinued Reported Medications Acetaminophen (Tylenol) 325 Mg Tablet, 650 MG ORAL Q6H PRN for Prn Pain/Headache /Temp > 101, #30 TAB 0 Refills 03/19/17 Med list reviewed/reconciled: Yes Allergies: Coded Allergies: No Known Allergies (Unverified , 03/19/17) Patient History PMH Narrative Patient last admitted August 2018. Problem list: 1. Viral upper respiratory infection plus or minus superimposed tracheobronchitis. 2. Bronchospasm and wheezing. 3. Acute kidney injury, unlikely chronic kidney disease. 4. Elevated BNP, but no evidence of heart failure. 5. Dementia. 6. 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 7. Diabetes. Final diagnosis was congestive heart failure Limited by: medical condition Past Medical History: see triage record, old chart reviewed Social History: Denies: smoking Social History Narrative [facility] facility [facility] Nursing Documentation: PMH: Agreed; PSxH: Agreed Nursing Documentation-PMH Hx Cardiac Problems: Yes Hx Hypertension: Yes Hx Diabetes: Yes Hx Cancer: No Hx Gastrointestinal Problems: No - hemmorhage of anus and rectum, acute kidney failure, hypomagnesemia Hx Dialysis: No - ACUTE KIDNEY FAILURE Hx Neurological Problems: Yes - diffculty walking, muscle weakness Hx Cerebrovascular Accident: No - HIP FX Hx Dementia: Yes Hx Alzheimer's Disease: Yes Hx Weakness: Yes Social History: Denies: smoking, alcohol use, drug use, other Review of Systems All Other Systems: limited Physical Exam Vital Signs Date Time Temp Pulse Resp B/P (MAP) Pulse Ox O2 Delivery O2 Flow Rate FiO2 12/05/19 17:06 98.6 104 20 110/65 (80) 93 Nasal Cannula 12/05/19 17:34 2.0 28 Sp02 EP Interpretation: reviewed, normal Labs Laboratory Tests Test 12/05/19 17:40 12/05/19 18:32 12/05/19 18:40 12/06/19 02:25 White Blood Count 15.9 K/UL (4.8-10.8) H 15.8 K/UL (4.8-10.8) H Red Blood Count 4.75 M/UL (4.70-6.10) 4.31 M/UL (4.70-6.10) L Hemoglobin 14.7 G/DL (14.2-18.0) 13.4 G/DL (14.2-18.0) L Hematocrit 42.9 % (42.0-52.0) 39.2 % (42.0-52.0) L Mean Corpuscular Volume 90 FL (80-99) 91 FL (80-99) Mean Corpuscular Hemoglobin 31.0 PG (27.0-31.0) 31.1 PG (27.0-31.0) H Mean Corpuscular Hemoglobin Concent 34.2 G/DL (32.0-36.0) 34.1 G/DL (32.0-36.0) Red Cell Distribution Width 12.0 % (11.6-14.8) 12.2 % (11.6-14.8) Platelet Count 169 K/UL (150-450) 148 K/UL (150-450) L Mean Platelet Volume 7.5 FL (6.5-10.1) 7.2 FL (6.5-10.1) Neutrophils (%) (Auto) % (45.0-75.0) % (45.0-75.0) Lymphocytes (%) (Auto) % (20.0-45.0) % (20.0-45.0) Monocytes (%) (Auto) % (1.0-10.0) % (1.0-10.0) Eosinophils (%) (Auto) % (0.0-3.0) % (0.0-3.0) Basophils (%) (Auto) % (0.0-2.0) % (0.0-2.0) Differential Total Cells Counted 100 Neutrophils % (Manual) 87 % (45-75) H Lymphocytes % (Manual) 7 % (20-45) L Monocytes % (Manual) 4 % (1-10) Eosinophils % (Manual) 0 % (0-3) Basophils % (Manual) 0 % (0-2) Band Neutrophils 2 % (0-8) Platelet Estimate Adequate Platelet Morphology Normal Red Blood Cell Morphology Normal Prothrombin Time 12.3 SEC (9.30-11.50) H Prothromb Time International Ratio 1.2 (0.9-1.1) H Activated Partial Thromboplast Time 31 SEC (23-33) Sodium Level 141 MMOL/L (136-145) 143 MMOL/L (136-145) Potassium Level 4.1 MMOL/L (3.5-5.1) 3.8 MMOL/L (3.5-5.1) Chloride Level 103 MMOL/L (98-107) 109 MMOL/L (98-107) H Carbon Dioxide Level 25 MMOL/L (21-32) 23 MMOL/L (21-32) Anion Gap 13 mmol/L (5-15) 12 mmol/L (5-15) Blood Urea Nitrogen 39 mg/dL (7-18) H 35 mg/dL (7-18) H Creatinine 2.6 MG/DL (0.55-1.30) H 2.0 MG/DL (0.55-1.30) H Estimat Glomerular Filtration Rate mL/min (>60) mL/min (>60) Glucose Level 295 MG/DL (74-106) H 242 MG/DL (74-106) H Lactic Acid Level 5.30 mmol/L (0.4-2.0) H 5.90 mmol/L (0.66-2.22) H 2.90 mmol/L (0.4-2.0) H Calcium Level 8.7 MG/DL (8.5-10.1) 7.9 MG/DL (8.5-10.1) L Total Bilirubin 6.6 MG/DL (0.2-1.0) H 6.6 MG/DL (0.2-1.0) H Direct Bilirubin 5.5 MG/DL (0.0-0.3) H 5.7 MG/DL (0.0-0.3) H Aspartate Amino Transf (AST/SGOT) 106 U/L (15-37) H 72 U/L (15-37) H Alanine Aminotransferase (ALT/SGPT) 83 U/L (12-78) H 65 U/L (12-78) Alkaline Phosphatase 390 U/L (46-116) H 307 U/L (46-116) H Total Creatine Kinase 138 U/L (26-308) Troponin I 0.000 ng/mL (0.000-0.056) Pro-B-Type Natriuretic Peptide 4188 pg/mL (0-125) H Total Protein 7.6 G/DL (6.4-8.2) 6.7 G/DL (6.4-8.2) Albumin 2.5 G/DL (3.4-5.0) L 2.1 G/DL (3.4-5.0) L Globulin 5.1 g/dL 4.6 g/dL Albumin/Globulin Ratio 0.5 (1.0-2.7) L 0.5 (1.0-2.7) L Urine Color Brown Urine Appearance Clear Urine pH 8 (4.5-8.0) Urine Specific [place] 1.010 (1.005-1.035) Urine Protein 3+ (NEGATIVE) H Urine Glucose (UA) Negative (NEGATIVE) Urine Ketones Negative (NEGATIVE) Urine Blood 4+ (NEGATIVE) H Urine Nitrite Negative (NEGATIVE) Urine Bilirubin 2+ (NEGATIVE) H Urine Ictotest Positive (NEGATIVE) Urine Urobilinogen 8 MG/DL (0.0-1.0) H Urine Leukocyte Esterase 3+ (NEGATIVE) H Urine RBC 10-15 /HPF (0 - 0) H Urine WBC 5-10 /HPF (0 - 0) H Urine Squamous Epithelial Cells None /LPF (NONE/OCC) Urine Bacteria Moderate /HPF (NONE) H Test 12/06/19 08:45 Lactic Acid Level 2.70 mmol/L (0.4-2.0) H General Appearance: no apparent distress Head: normocephalic EENT: PERRL/EOMI, normal ENT inspection Neck: supple Respiratory: normal breath sounds, no respiratory distress Cardiovascular: normal rate Gastrointestinal: normal inspection, non tender, soft, normal bowel sounds, non -distended Rectal: deferred Genitourinary: deferred Musculoskeletal: normal inspection, back normal Neurologic: alert, responsive, normal inspection Skin: normal inspection, normal color, no rash, warm/dry, palpation normal, well hydrated Lymphatic: normal inspection, no adenopathy Current Medications Current Medications Medications (Trade) Dose Ordered Sig/Filemon Route PRN Reason Start Time Stop Time Status Last Admin Dose Admin Albuterol/ Ipratropium (Albuterol/ Ipratropium) 3 ml Q4H PRN HHN Shortness of Breath 12/05/19 23:15 12/10/19 23:14 Dextrose (Dextrose 50%) 25 ml Q30M PRN IV Hypoglycemia 12/06/19 11:45 01/05/20 11:44 Dextrose (Dextrose 50%) 50 ml Q30M PRN IV Hypoglycemia 12/06/19 11:45 01/05/20 11:44 Diltiazem HCl (Cardizem) 30 mg EVERY 8 HOURS ORAL 12/06/19 14:00 01/05/20 13:59 Docusate Sodium (Colace) 100 mg TWICE A DAY ORAL 12/06/19 18:00 01/05/20 17:59 Insulin Aspart (NovoLOG) BEFORE MEALS AND HS SUBQ 12/06/19 16:30 01/05/20 16:29 Pantoprazole (Protonix) 40 mg DAILY ORAL 12/06/19 14:45 01/05/20 14:44 12/06/19 15:21 Piperacillin Sod/ Tazobactam Sod 3.375 gm/Sodium Chloride 110 ml @ 27.5 mls/hr EVERY 8 HOURS IVPB 12/06/19 14:00 12/11/19 13:59 12/06/19 13:57 Risperidone (RisperDAL) 0.5 mg Q12HR ORAL 12/06/19 09:00 01/05/20 08:59 12/06/19 09:52 Sodium Chloride 1,000 ml @ 50 mls/hr Q20H IV 12/06/19 14:45 01/05/20 14:44 12/06/19 15:21 Tamsulosin HCl (Flomax) 0.4 mg BEDTIME ORAL 12/06/19 21:00 01/05/20 20:59 Vancomycin HCl (Vanco rx to dose) 1 ea DAILY PRN MISC Per rx protocol 12/06/19 10:30 2/26/20 10:29 GI: Plan Problems: (1) Hyperbilirubinemia (2) Cholestasis (3) Biliary obstruction (4) Elevated LFTs Plan This is a 89-year-old male patient that presented with hyperbilirubinemia with no transaminitis 2/2 to cholestasis vs biliary obstruction. Follow-up abdominal ultrasound to rule out any biliary obstruction, may need MRCP Less likely autoimmune given no history of hyperbilirubinemia from previous admissions May need liver biopsy at some point for definitive diagnosis Avoid hepatotoxic's Repeat liver function test for tomorrow, check GGT, hepatitis panel We will follow along on a daily basis with any additional recommendations Discussed with Dr. Escalante. Thank you for this patient referral, we will follow. The patient was seen and examined at bedside and all new and available data was reviewed in the patients chart. I agree with the above findings, impression and plan. (Patient seen earlier today. Signature stamp does not reflect patient encounter time.). - MD Nilsa Chavez AnhVivek MUNGUIA Dec 06, 2019 15:32
--- NOTE | 2019-12-06 15:58 | Diagnostic Imaging Report ---
Indication: Elevated liver function tests Technique: Grayscale and duplex Doppler imaging of the abdomen performed. Comparison: None Findings: The study was limited due to bowel gas body habitus. The liver is mildly heterogeneous with questionable surface nodularity. Doppler interrogation of the main portal vein shows patency with hepatopedal, monophasic flow. There is no biliary ductal dilatation identified. Gallbladder is grossly unremarkable. There demonstrated part of the pancreas, aorta and IVC show no obvious abnormalities. The structures are poorly seen. Both kidneys are poorly seen. There is no obvious hydronephrosis. IMPRESSION: No acute findings Very limited study
[2019-12-06 16:00] VITALS: BP 119/60
[2019-12-06] MEDS: Docusate 100mg cap ORAL SCH (17:42)
[2019-12-06] MEDS: NovoLOG Insulin Flexpen SUBQ SCH ×2 (17:42→21:40)
--- NOTE | 2019-12-06 17:45 | Consultation ---
DATE OF CONSULTATION: 12/06/2019 CARDIOLOGY CONSULTATION CONSULTING PHYSICIAN: Kyle Reynoso M.D. REFERRING PHYSICIAN: Gurmeet Elizabeth M.D. REASON FOR CONSULTATION: Hypertension and shortness of breath. HISTORY OF PRESENT ILLNESS: This is an 89-year-old patient, resident of nursing facility with history of hypertension, diabetes, chronic kidney disease, COPD, Alzheimer dementia, schizophrenia, depression, gastroesophageal acid reflux disease who also presented from [facility] for fever, was placed on oxygen for hypoxemia. The patient is unable to provide any meaningful information. Currently is on nasal oxygen and saturating well. REVIEW OF SYSTEMS: Negative other than what was mentioned in the history of present illness. PAST MEDICAL HISTORY: As mentioned above. FAMILY HISTORY: Noncontributory. SOCIAL HISTORY: He is a [facility] resident. Does not smoke or drink alcohol. MEDICATIONS: Include Cardizem, Risperdal, DuoNeb. PAST SURGICAL HISTORY: Includes hip fracture. PHYSICAL EXAMINATION: VITAL SIGNS: Show blood pressure of 95/44, pulse is 102, respirations 18, temperature 99.1. HEAD AND NECK: Shows no JVD. LUNGS: Decreased breath sounds. CARDIOVASCULAR: Shows regular S1 and S2 with no gallop. ABDOMEN: Soft. EXTREMITIES: No pitting edema. LABORATORY AND DIAGNOSTIC DATA: Labs show white count 15.9, hematocrit 13.5, hematocrit 39, and platelet count 148. Sodium 142, potassium 3.9, BUN of 35, creatinine 2.0. Lactic acid was 5.9. Total bilirubin is 6.6. Alkaline phosphatase of 307. EKG shows sinus tachycardia, rate of [address]-T wave abnormalities. ASSESSMENT AND PLAN: 1. Hypertension. Blood pressure is stable. Continue Cardizem 30 mg every 8 hours. Echocardiogram was ordered, but the result is pending. 2. Shortness of breath secondary to pneumonia. Again, echocardiogram is pending. The patient has history of congestive heart failure. 3. Pneumonia, on vancomycin and Zosyn per Dr. Barth. 4. History of dementia. 5. Renal failure. 6. Lactic acidosis. 7. Hyperbilirubinemia with total bilirubin of 6.6, direct bilirubin of 5.5. Further evaluation by GI. 8. Renal failure with BUN of 35 and creatinine of 2.0. Thank you very much for allowing me to participate in the care of this patient. Please do not hesitate to contact me for any questions regarding my evaluation. Kyle Reynoso M.D. DR: RAZ JOB#: [id number] CC:
--- NOTE | 2019-12-06 19:09 | NUR ---
HAND-OFF: Report given to GARO BERUMEN, NO DISTRESS AT THIS TIME.
--- NOTE | 2019-12-06 19:30 | NUR ---
NURSE NOTES: Received Pt is resting on the bed and awake and confused. On O2 3L via nasal cannula and SasO2 96% noted. Denied pain at this time. On Tele monitor with ST with HR: 110's. Iv site intact and no sign of infiltration noted. On running with 1/2NS@ 50cc/hr. In placed condom cath and dark kelvin color urine noted. Placed fall precaution. Will continue to care plan.
[2019-12-06 20:00] VITALS: BP 103/48
[2019-12-06] MEDS ORDERED: RISPERDAL1 MG PO (20:36)
[2019-12-06] MEDS ORDERED: PRO-STAT LIQUID30 ML ORAL (20:36)
[2019-12-06] MEDS ORDERED: ASPIRIN81 MG ORAL (20:36)
[2019-12-06] MEDS ORDERED: ACETAMINOPHEN325 M1 ORAL (20:36)
[2019-12-06] MEDS: Tamsulosin 0.4mg cap ORAL SCH (21:37)
--- NOTE | 2019-12-06 21:45 | History and Physical Report ---
DATE OF ADMISSION: 12/05/2019 HISTORY OF PRESENT ILLNESS: The patient is a poor historian. Cannot get reliable history from him, but he is admitted for fever at the facility, rule out sepsis, also has pneumonia, congested at the facility. Admitted for pneumonia, rule out sepsis. The patient also has had some cough as well. The patient also was placed on oxygen because of hypoxia. The patient denied chills, however, is a poor historian. PAST MEDICAL HISTORY: Significant for dementia, history of NIDDM, history of hypertension, history of diabetes. The patient also has history of weakness, history of difficulty walking, ataxia, BPH, electrolyte imbalance, constipation. PAST SURGICAL HISTORY: Denies. ALLERGIES: No known allergies. FAMILY HISTORY: Noncontributory. SOCIAL HISTORY: Denies history of smoking, alcohol, or illicit drugs. Comes from a prison, however, is a poor historian. MEDICATIONS: Takes aspirin, Bisacodyl, diltiazem, docusate, insulin, risperidone, Flomax. PHYSICAL EXAMINATION: VITAL SIGNS: Temperature 98.7, pulse is 92, blood pressure 106/57. HEENT: PERRLA. NECK: Supple. No lymphadenopathy. CHEST: Bibasilar rhonchi. Congested. CARDIOVASCULAR: Tachycardiac at times. No murmurs. GASTROINTESTINAL: Soft, nontender, nondistended. No organomegaly. EXTREMITIES: No edema. NEUROLOGIC: Does not follow neurological exam . Reflexes equal on both sides. Dorsalis pedis pulses are present. LABORATORY DATA: WBC of 15.9, hemoglobin 14.7, platelets 169. Sodium 143, potassium 3.8, chloride 109, glucose of 242, creatinine of 2, BUN of 35. Elevated lactic acid. Total bilirubin of 6.6, alkaline phosphatase of 307, AST of 72, and ALT of 65. Chest x-ray shows pneumonia. ASSESSMENT AND PLAN: Pneumonia, fever, rule out sepsis, elevated LFTs, acute renal failure, most likely dehydration, and also has hypoxemia. I have asked Dr. Ashraf, Dr. Escalante, Dr. Moore, Dr. Lincoln, and Dr. Enrike Hadley to see the patient to help with the management of the above-mentioned diagnoses, abnormalities, and symptoms. We will admit the patient to telemetry. Gurmeet Elizabeth M.D. DR: JAMES JOB#: [id number] CC:
[2019-12-07] VITALS: BP 113/58
--- NOTE | 2019-12-07 02:00 | NUR ---
NURSE NOTES: Pt is sleeping on the bed and no sign of acute distress noted. On O2 3L via nasal cannula and SaO2 97% noted. Provided good sleep environment. Placed fall precaution. Will continue to monitor any change of condition.
[2019-12-07 04:00] VITALS: BP 116/57
[2019-12-07 05:45] LABS: HEMATOCRIT 38.2 % (42.0-52.0); MEAN CORPUSCULAR VOLUME 92 FL (80-99); PLATELET COUNT 150 K/UL (150-450); RED BLOOD COUNT 4.16 M/UL (4.70-6.10); RED CELL DISTRIBUTION WIDTH 12.3 % (11.6-14.8); WHITE BLOOD COUNT 15.2 K/UL (4.8-10.8)
[2019-12-07] MEDS: Piperacillin/Tazobactam 3.375 GM in NS 110 ML IVPB SCH ×3 (06:02→21:29)
--- NOTE | 2019-12-07 06:03 | Consultation ---
History of Present Illness General Chief Complaint: Dyspnea/Respdistress Referring physician: RAMIREZ PEREZ Reason for Consultation: ELEVATED LFTs Present Illness Allergies: Coded Allergies: No Known Allergies (Unverified , 03/19/17) Medication History Scheduled Acetaminophen* (Acetaminophen 325MG Tablet*), 650 MG ORAL DAILY, (Reported) Amino Acids/Protein Hydrolys (Pro-Stat Liquid), 30 ML ORAL DAILY, (Reported) Aspirin* (Aspirin*), 81 MG ORAL DAILY, (Reported) Cranberry Fruit (Cranberry), 900 MG PO BID, (Reported) Diltiazem Hcl* (Cardizem*), 30 MG PO Q8HR, (Reported) Docusate Sodium* (Colace*), 100 MG ORAL DAILY, (Reported) Potassium Chloride (Potassium Chloride), 20 MEQ PO DAILY, (Reported) Risperidone* (Risperdal*), 0.5 MG ORAL DAILY, (Reported) Risperidone* (Risperdal*), 1 MG PO DAILY, (Reported) Tamsulosin HCl (Flomax), 0.4 MG ORAL DAILY, (Reported) Scheduled PRN Acetaminophen (Tylenol), 650 MG ORAL Q4HR PRN for Mild Pain/Temp > 100.5, ( Reported) Bisacodyl* (Dulcolax*), 10 MG RECTAL DAILY PRN for IF MOM INEFFECTIVE, (Reported ) Magnesium Hydroxide* (Milk Of Magnesia*), 30 ML ORAL DAILY PRN for Constipation, (Reported) Na Phos,M-B/Na Phos,Di-Ba* (Fleet Enema*), 133 ML RECTAL EVERY OTHER DAY PRN for IF DUCOLAX INEFFECTIVE, (Reported) Miscellaneous Medications Insulin Lispro (Humalog), 0 SUBQ, (Reported) Discontinued Medications Acetaminophen (Tylenol), 650 MG ORAL Q6H PRN for Prn Pain/Headache/Temp > 101, ( Reported) Discontinued Reason: Medication dose changed Risperidone* (Risperdal*), 0.5 MG ORAL QHS, (Reported) Discontinued Reason: Prescription changed Patient History Healthcare decision maker Resuscitation status Full Code Advanced Directive on File Physical Exam Last 24 Hour Vital Signs Date Time Temp Pulse Resp B/P (MAP) Pulse Ox O2 Delivery O2 Flow Rate FiO2 12/07/19 04:00 98.9 113 20 116/57 (76) 96 12/07/19 04:00 Nasal Cannula 3.0 12/07/19 04:00 115 12/07/19 00:42 107 12/07/19 00:00 97.9 108 22 113/58 (76) 96 12/07/19 00:00 Nasal Cannula 3.0 12/06/19 22:00 110 103/48 12/06/19 20:00 97.7 115 22 103/48 (66) 96 12/06/19 20:00 Nasal Cannula 3.0 12/06/19 20:00 109 12/06/19 16:00 99.0 110 22 119/60 (79) 97 12/06/19 16:00 Nasal Cannula 3.0 12/06/19 16:00 99 12/06/19 14:00 102 95/44 12/06/19 12:00 99.1 110 24 95/44 (61) 96 12/06/19 12:00 102 12/06/19 12:00 Nasal Cannula 3.0 12/06/19 08:00 102 12/06/19 08:00 Nasal Cannula 3.0 12/06/19 08:00 97.4 98 16 108/58 (75) 96 Intake and Output 12/06/19 12/07/19 19:00 07:00 Intake Total 385.0 ml 610.0 ml Output Total 150 ml Balance 235.0 ml 610.0 ml Intake Oral 100 ml IV Total 285.0 ml 610.0 ml Output Urine Total 150 ml # Voids 2 # Bowel Movements 2 Laboratory Tests Test 12/06/19 08:45 12/06/19 19:50 12/07/19 01:00 12/07/19 04:30 Lactic Acid Level 2.70 mmol/L (0.4-2.0) H Random Vancomycin Level Pending Hepatitis A IgM Antibody Pending Hepatitis B Surface Antigen Pending Hepatitis B Core IgM Antibody Pending Hepatitis C Antibody Pending HIV (1&2) Antibody Rapid Negative (NEGATIVE) Cortisol AM Sample Pending White Blood Count Pending Red Blood Count Pending Hemoglobin Pending Hematocrit Pending Mean Corpuscular Volume Pending Mean Corpuscular Hemoglobin Pending Mean Corpuscular Hemoglobin Concent Pending Red Cell Distribution Width Pending Platelet Count Pending Mean Platelet Volume Pending Neutrophils (%) (Auto) Pending Lymphocytes (%) (Auto) Pending Monocytes (%) (Auto) Pending Eosinophils (%) (Auto) Pending Basophils (%) (Auto) Pending Sodium Level Pending Potassium Level Pending Chloride Level Pending Carbon Dioxide Level Pending Blood Urea Nitrogen Pending Creatinine Pending Estimat Glomerular Filtration Rate Pending Glucose Level Pending Hemoglobin A1c Pending Uric Acid Pending Calcium Level Pending Phosphorus Level Pending Magnesium Level Pending Iron Level Pending Unsaturated Iron Binding Pending Ferritin Pending Total Bilirubin Pending Gamma Glutamyl Transpeptidase Pending Aspartate Amino Transf (AST/SGOT) Pending Alanine Aminotransferase (ALT/SGPT) Pending Alkaline Phosphatase Pending Troponin I Pending C-Reactive Protein, Quantitative Pending Pro-B-Type Natriuretic Peptide Pending Total Protein Pending Albumin Pending Globulin Pending Triglycerides Level Pending Cholesterol Level Pending LDL Cholesterol Pending HDL Cholesterol Pending Cholesterol/HDL Ratio Pending Vitamin B12 Level Pending Folate Pending Thyroid Stimulating Hormone (TSH) Pending Height (Feet): 5 Height (Inches): 6.00 Weight (Pounds): 174 Medications Current Medications Medications (Trade) Dose Ordered Sig/Filemon Route PRN Reason Start Time Stop Time Status Last Admin Dose Admin Albuterol/ Ipratropium (Albuterol/ Ipratropium) 3 ml Q4H PRN HHN Shortness of Breath 12/05/19 23:15 12/10/19 23:14 Dextrose (Dextrose 50%) 25 ml Q30M PRN IV Hypoglycemia 12/06/19 11:45 01/05/20 11:44 Dextrose (Dextrose 50%) 50 ml Q30M PRN IV Hypoglycemia 12/06/19 11:45 01/05/20 11:44 Diltiazem HCl (Cardizem) 30 mg EVERY 8 HOURS ORAL 12/06/19 14:00 01/05/20 13:59 Docusate Sodium (Colace) 100 mg TWICE A DAY ORAL 12/06/19 18:00 01/05/20 17:59 12/06/19 17:42 Insulin Aspart (NovoLOG) BEFORE MEALS AND HS SUBQ 12/06/19 16:30 01/05/20 16:29 12/06/19 21:40 Pantoprazole (Protonix) 40 mg DAILY ORAL 12/06/19 14:45 01/05/20 14:44 12/06/19 15:21 Piperacillin Sod/ Tazobactam Sod 3.375 gm/Sodium Chloride 110 ml @ 27.5 mls/hr EVERY 8 HOURS IVPB 12/06/19 14:00 12/11/19 13:59 12/06/19 21:40 Risperidone (RisperDAL) 0.5 mg Q12HR ORAL 12/06/19 09:00 01/05/20 08:59 12/06/19 21:37 Sodium Chloride 1,000 ml @ 50 mls/hr Q20H IV 12/06/19 14:45 01/05/20 14:44 12/06/19 15:21 Tamsulosin HCl (Flomax) 0.4 mg BEDTIME ORAL 12/06/19 21:00 01/05/20 20:59 12/06/19 21:37 Vancomycin HCl (Vanco rx to dose) 1 ea DAILY PRN MISC Per rx protocol 12/06/19 10:30 01/05/20 10:29 Assessment/Plan Assessment/Plan: Hematology Consultation RFA: Dyspnea/Respdistress Referring physician: RAMIREZ MEJIAS Reason for Consultation: Thrombocytopenia DOS: 12/06/2019 ID [id number] old is sent from [facility] because of fever. He was placed on oxygen because of hypoxia. Patient has Alzheimer's dementia and answers yes to most questions. He denies vomiting or diarrhea. He does say he has dysuria. Apparently Tylenol was given in the morning. Review of systems is unreliable. GI consulted for elevated LFTs. ROS limited, patient with history of dementia. Labs reviewed; total bilirubin 6.6, direct bilirubin 5.7, AST 72, ALT 65, alkaline phosphatase 307, creatinine 2.0. At this time abdominal ultrasound is pending. Patient has history of colonoscopy July 2017 notable for distal colitis. Has been Seen by [facility]. Noted to have low platelet count and heme consulted, w/u ordered. Home Meds Reported Medications Tamsulosin HCl (Flomax) 0.4 Mg Cap.er.24h, 0.4 MG ORAL DAILY for BPH, CAP 12/05/19 Acetaminophen (Tylenol) 325 Mg Tablet, 650 MG ORAL Q4HR PRN for Mild Pain/Temp > 100.5, #30 TAB 0 Refills 12/05/19 Risperidone* (RISPERDAL*) 0.5 Mg Tablet, 0.5 MG ORAL QHS for SHEZOPHRENIA, #30 TAB 0 Refills 12/05/19 Risperidone* (RISPERDAL*) 0.5 Mg Tablet, 0.5 MG ORAL DAILY for SCHEZOPHRENIA, # 30 TAB 0 Refills 12/05/19 Amino Acids/Protein Hydrolys (PRO-STAT LIQUID) 30 Ml Liquid.pkt, 30 ML ORAL DAILY for LOW ALBUMIN, ML 12/05/19 Potassium Chloride (Potassium Chloride) 20 Meq Tablet.er, 20 MEQ PO DAILY for K suppliment, TAB 12/05/19 Insulin Lispro (HUMALOG) 100 Unit/1 Ml Insuln.pen, 0 SUBQ for DM, #1 EA 0 Refills 12/05/19 Diltiazem Hcl* (CARDIZEM*) 30 Mg Tablet, 30 MG PO Q8HR for htn, TAB 12/05/19 Cranberry Fruit (CRANBERRY) 450 Mg Tablet, 900 MG PO BID for uti, TAB 12/05/19 Magnesium Hydroxide* (MILK OF MAGNESIA*) 400 Mg/5 Ml Oral.susp, 30 ML ORAL DAILY PRN for Constipation, ML 03/19/17 Na Phos,M-B/Na Phos,Di-Ba* (FLEET ENEMA*) 133 Ml Enema, 133 ML RECTAL EVERY OTHER DAY PRN for Constipation, ML 0 Refills 03/19/17 Bisacodyl* (DULCOLAX*) 5 Mg Tablet.dr, 10 MG RECTAL DAILY PRN for Constipation, #10 TAB 0 Refills 03/19/17 Docusate Sodium* (COLACE*) 100 Mg Capsule, 100 MG ORAL DAILY, CAP 03/19/17 Aspirin* (ASPIR 81*) 81 Mg Tablet.dr, 81 MG ORAL DAILY, TAB 03/19/17 Discontinued Reported Medications Acetaminophen (Tylenol) 325 Mg Tablet, 650 MG ORAL Q6H PRN for Prn Pain/Headache /Temp > 101, #30 TAB 0 Refills 03/19/17 Med list reviewed/reconciled: Yes Allergies: Coded Allergies: No Known Allergies (Unverified , 03/19/17) Patient History PMH Narrative Patient last admitted August 2018. Problem list: 1. Viral upper respiratory infection plus or minus superimposed tracheobronchitis. 2. Bronchospasm and wheezing. 3. Acute kidney injury, unlikely chronic kidney disease. 4. Elevated BNP, but no evidence of heart failure. 5. Dementia. 6. 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 7. Diabetes. Final diagnosis was congestive heart failure Limited by: medical condition Past Medical History: see triage record, old chart reviewed Social History: Denies: smoking Social History Narrative [facility] Reviewed Nursing Documentation: PMH: Agreed; PSxH: Agreed Nursing Documentation-PMH Hx Cardiac Problems: Yes Hx Hypertension: Yes Hx Diabetes: Yes Hx Cancer: No Hx Gastrointestinal Problems: No - hemmorhage of anus and rectum, acute kidney failure, hypomagnesemia Hx Dialysis: No - ACUTE KIDNEY FAILURE Hx Neurological Problems: Yes - diffculty walking, muscle weakness Hx Cerebrovascular Accident: No - HIP FX Hx Dementia: Yes Hx Alzheimer's Disease: Yes Hx Weakness: Yes Social History: Denies: smoking, alcohol use, drug use, other Review of Systems All Other Systems: limited Physical Exam Vitals: noted General: no apparent distress HEENT: supple Resp: normal breath sounds, no respiratory distress Cardiovascular: normal rate Gastrointestinal: normal inspection, non tender, soft, normal bowel sounds, non -distended Skin: normal inspection, normal color, no rash, warm/dry, palpation normal, well hydrated Lymphatic: normal inspection, no adenopathy Labs: noted Imaging: noted Assessment and Recs: # Thrombocytopenia -- is likely related to sepsis from pna, currently in 100- 150 range --> smear has been ordered and reviewed --> meds are noted --> okay to continue on abx --> plt trend 169-->148k --> hold off steriods --> hep and hiv pend # Leukocytosis due to pna/lactic acidosis --> as per above --> smear has been reviewed --> as per id, on vanc/zosyn # Anemia of chronic disease --> in this case due to hemodilution # Hyperbilirubinemia --> gi aware as per their recs -> may need ercp/mrcp as per gi # Cholestasis # Biliary obstruction # Elevated LFTs # PNA/Sepsis Appreciate consultation and will tasha Rousseau. Damian Batres MD Dec 07, 2019 06:03
[2019-12-07] MEDS: dilTIAZem HCl 30mg tab ORAL SCH ×3 (06:07→21:29)
[2019-12-07 06:35] LABS: ALANINE AMINOTRANSFERASE 52 U/L (12-78); ALBUMIN 1.9 G/DL (3.4-5.0); ALBUMIN/GLOBULIN RATIO 0.4 (1.0-2.7); ALKALINE PHOSPHATASE 244 U/L (46-116); ANION GAP 7 mmol/L (5-15); ASPARTATE AMINO TRANSFERASE 45 U/L (15-37); BILIRUBIN,TOTAL 5.7 MG/DL (0.2-1.0); BLOOD UREA NITROGEN 33 mg/dL (7-18); CALCIUM 8.2 MG/DL (8.5-10.1); CARBON DIOXIDE 27 MMOL/L (21-32); CHLORIDE 113 MMOL/L (98-107); CHOLESTEROL 73 MG/DL (< 200); CREATININE 1.9 MG/DL (0.55-1.30); FERRITIN 274 NG/ML (8-388); GAMMA GLUTAMYL TRANSPEPTIDASE 130 U/L (5-85); HDL CHOLESTEROL 13 MG/DL (40-60); POTASSIUM 3.3 MMOL/L (3.5-5.1); SODIUM 147 MMOL/L (136-145); TRIGLYCERIDES 80 MG/DL (30-150)
[2019-12-07] MEDS: NovoLOG Insulin Flexpen SUBQ SCH ×4 (06:36→20:18)
--- NOTE | 2019-12-07 07:00 | NUR ---
NURSE NOTES: received patient report from yvette malhotra. patient is on bed asleep. not in acute distress. on [address] on th emonitor. bed is low and lcoked for safety. will follow plan of care.
[2019-12-07 07:15] LABS: % IRON SATURATION 4 % (15-50); IRON 6 ug/dL (50-175); TOTAL IRON BINDING CAPACITY 152 ug/dL (250-450)
--- NOTE | 2019-12-07 07:22 | NUR ---
HAND-OFF: Report given to JAMAICA Styles. Pt is restin on the bed and no sign of acute distress noted.
[2019-12-07 08:00] VITALS: BP 105/60
[2019-12-07] MEDS: Docusate 100mg cap ORAL SCH ×2 (08:05→16:45)
--- NOTE | 2019-12-07 08:48 | NUR ---
NURSE NOTES: left a message to dr Elizabeth regarding patients temperature of 100.3. awaits callback and new order.
--- NOTE | 2019-12-07 09:21 | NUR ---
NURSE NOTES: dr cook acknowledged the report and ordered to call dr juan cook for order for fever. will continue to monitor.
[2019-12-07] MEDS ORDERED: Vancomycin 1.5gm/NS Premix q24h IVPB SCH (10:00)
--- NOTE | 2019-12-07 10:41 | Pulmonology Progress Note ---
Assessment/Plan Assessment/Plan IMPRESSION: 1. Left lower lobe pneumonia. 2. Sepsis with lactic acidemia. 3. Acute renal insufficiency. 4. History of CHF. 5. Dementia. 6. Jaundice DISCUSSION: Fluid resuscitation. Continue broad-spectrum antibiotics. I will follow carefully as respiratory clinical science consultant. Kevin Lincoln M.D. Subjective Interval Events: None new; looks comfortable Constitutional: Reports: no symptoms HEENT: Repors: no symptoms Respiratory: Reports: no symptoms Cardiovascular: Reports: no symptoms Gastrointestinal/Abdominal: Reports: no symptoms Genitourinary: Reports: no symptoms Allergies: Coded Allergies: No Known Allergies (Unverified , 03/19/17) Objective Last 24 Hour Vital Signs Date Time Temp Pulse Resp B/P (MAP) Pulse Ox O2 Delivery O2 Flow Rate FiO2 12/07/19 08:00 Nasal Cannula 3.0 12/07/19 08:00 100.0 111 26 105/60 (75) 96 12/07/19 07:44 107 12/07/19 06:07 110 121/60 12/07/19 04:00 98.9 113 20 116/57 (76) 96 12/07/19 04:00 Nasal Cannula 3.0 12/07/19 04:00 115 12/07/19 00:42 107 12/07/19 00:00 97.9 108 22 113/58 (76) 96 12/07/19 00:00 Nasal Cannula 3.0 12/06/19 22:00 110 103/48 12/06/19 20:00 97.7 115 22 103/48 (66) 96 12/06/19 20:00 Nasal Cannula 3.0 12/06/19 20:00 109 12/06/19 16:00 99.0 110 22 119/60 (79) 97 12/06/19 16:00 Nasal Cannula 3.0 12/06/19 16:00 99 12/06/19 14:00 102 95/44 12/06/19 12:00 99.1 110 24 95/44 (61) 96 12/06/19 12:00 102 12/06/19 12:00 Nasal Cannula 3.0 Intake and Output 12/06/19 12/07/19 19:00 07:00 Intake Total 385.0 ml 770.0 ml Output Total 150 ml 600 ml Balance 235.0 ml 170.0 ml Intake Oral 100 ml 60 ml IV Total 285.0 ml 710.0 ml Output Urine Total 150 ml 600 ml # Voids 2 1 # Bowel Movements 2 General Appearance: no acute distress HEENT: normocephalic Respiratory/Chest: chest wall non-tender, lungs clear Cardiovascular: normal peripheral pulses, normal rate Abdomen: normal bowel sounds, soft, non tender Extremities: no cyanosis Microbiology Date/Time Source Procedure Growth Status 12/05/19 17:40 Blood Blood Culture - Preliminary NO GROWTH AFTER 24 HOURS Resulted 12/05/19 17:30 Blood Blood Culture - Preliminary NO GROWTH AFTER 24 HOURS Resulted 12/05/19 17:40 Nasal Nares - Final Complete 12/05/19 17:40 Nasal Nares - Final Complete 12/05/19 18:40 Urine,Clean Catch Urine Culture - Preliminary Gram Negative Bacillus 1 Resulted 12/05/19 18:30 Rectum Received Laboratory Tests 12/06/19 19:50: Random Vancomycin Level 4.2, Hepatitis A IgM Antibody Negative, Hepatitis B Surface Antigen Negative, Hepatitis B Core IgM Antibody Negative, Hepatitis C Antibody 0.3, HIV (1&2) Antibody Rapid Negative 12/07/19 01:00: Cortisol AM Sample [Pending] 12/07/19 04:30: White Blood Count 15.2H, Red Blood Count 4.16L, Hemoglobin 13.0L, Hematocrit 38.2L, Mean Corpuscular Volume 92, Mean Corpuscular Hemoglobin 31.3H, Mean Corpuscular Hemoglobin Concent 34.1, Red Cell Distribution Width 12.3, Platelet Count 150, Mean Platelet Volume 7.0, Neutrophils (%) (Auto) , Lymphocytes (%) ( Auto) , Monocytes (%) (Auto) , Eosinophils (%) (Auto) , Basophils (%) (Auto) , Differential Total Cells Counted 100, Neutrophils % (Manual) 93H, Lymphocytes % (Manual) 4L, Monocytes % (Manual) 3, Eosinophils % (Manual) 0, Basophils % ( Manual) 0, Band Neutrophils 0, Platelet Estimate Adequate, Platelet Morphology Normal, Red Blood Cell Morphology Normal, Sodium Level 147H, Potassium Level 3.3L, Chloride Level 113H, Carbon Dioxide Level 27, Anion Gap 7, Blood Urea Nitrogen 33H, Creatinine 1.9H, Estimat Glomerular Filtration Rate , Glucose Level 192H, Hemoglobin A1c 7.2H, Uric Acid 4.2, Calcium Level 8.2L, Phosphorus Level 2.0L, Magnesium Level 1.8, Iron Level 6L, Total Iron Binding Capacity 152L , Percent Iron Saturation 4L, Unsaturated Iron Binding 146, Ferritin 274, Total Bilirubin 5.7H, Direct Bilirubin 5.0H, Gamma Glutamyl Transpeptidase 130H, Aspartate Amino Transf (AST/SGOT) 45H, Alanine Aminotransferase (ALT/SGPT) 52, Alkaline Phosphatase 244H, Troponin I 0.000, C-Reactive Protein, Quantitative 41.2H, Pro-B-Type Natriuretic Peptide 1173H, Total Protein 6.4, Albumin 1.9L, Globulin 4.5, Albumin/Globulin Ratio 0.4L, Triglycerides Level 80, Cholesterol Level 73, LDL Cholesterol 40, HDL Cholesterol 13L, Cholesterol/HDL Ratio 5.6H, Vitamin B12 Level 227, Folate 9.0, Thyroid Stimulating Hormone (TSH) 0.183L Current Medications Medications (Trade) Dose Ordered Sig/Filemon Route PRN Reason Start Time Stop Time Status Last Admin Dose Admin Acetaminophen (Tylenol) 325 mg Q6H PRN ORAL Mild Pain/Temp > 100.5 12/07/19 09:30 01/06/20 09:29 Albuterol/ Ipratropium (Albuterol/ Ipratropium) 3 ml Q4H PRN HHN Shortness of Breath 12/05/19 23:15 12/10/19 23:14 Dextrose (Dextrose 50%) 25 ml Q30M PRN IV Hypoglycemia 12/06/19 11:45 01/05/20 11:44 Dextrose (Dextrose 50%) 50 ml Q30M PRN IV Hypoglycemia 12/06/19 11:45 01/05/20 11:44 Diltiazem HCl (Cardizem) 30 mg EVERY 8 HOURS ORAL 12/06/19 14:00 01/05/20 13:59 12/07/19 06:07 Docusate Sodium (Colace) 100 mg TWICE A DAY ORAL 12/06/19 18:00 01/05/20 17:59 12/07/19 08:05 Insulin Aspart (NovoLOG) BEFORE MEALS AND HS SUBQ 12/06/19 16:30 01/05/20 16:29 12/07/19 06:36 Pantoprazole (Protonix) 40 mg DAILY ORAL 12/06/19 14:45 01/05/20 14:44 12/07/19 08:05 Piperacillin Sod/ Tazobactam Sod 3.375 gm/Sodium Chloride 110 ml @ 27.5 mls/hr EVERY 8 HOURS IVPB 12/06/19 14:00 12/11/19 13:59 12/07/19 06:02 Potassium Phosphate 20 mm/ Sodium Chloride 281.6667 ml @ 46.944 m... ONCE ONCE IV 12/07/19 11:00 12/07/19 16:59 Risperidone (RisperDAL) 0.5 mg Q12HR ORAL 12/06/19 09:00 01/05/20 08:59 12/07/19 08:06 Sodium Chloride 1,000 ml @ 50 mls/hr Q20H IV 12/06/19 14:45 01/05/20 14:44 12/07/19 09:50 Tamsulosin HCl (Flomax) 0.4 mg BEDTIME ORAL 12/06/19 21:00 01/05/20 20:59 12/06/19 21:37 Vancomycin HCl (Vanco rx to dose) 1 ea DAILY PRN MISC Per rx protocol 12/06/19 10:30 01/05/20 10:29 Vancomycin/Sodium Chloride 275 ml @ 137.5 mls/ hr ONCE IVPB 12/07/19 10:00 12/07/19 12:00 12/07/19 09:57 Kevin Lincoln MD Dec 07, 2019 10:41
[2019-12-07] MEDS ORDERED: Potassium Phosphate 20 MM in NS 275 ML IV ONE (11:00)
--- NOTE | 2019-12-07 11:08 | Cardiac Electrophysiology PN ---
Assessment/Plan Assessment/Plan 1. Hypertension. Continue Cardizem 30 mg every 8 hours. Echocardiogram still pending. 2. Shortness of breath secondary to pneumonia. Echocardiogram still pending. The patient has history of congestive heart failure. 3. Pneumonia, on vancomycin and Zosyn per Dr. Barth. 4. History of dementia. 5. Renal failure. 6. Lactic acidosis. 7. Hyperbilirubinemia with total bilirubin of 6.6, direct bilirubin of 5.5. Fu Dr Escalante MRI abdomen couldn't be done as unable to lay flat 8. Renal failure with BUN of 35 and creatinine of 2.0. ENEDINA RN Subjective Subjective Was just brought back from MRI. Couldn't complete as was moving. Objective Last 24 Hour Vital Signs Date Time Temp Pulse Resp B/P (MAP) Pulse Ox O2 Delivery O2 Flow Rate FiO2 12/07/19 08:00 Nasal Cannula 3.0 12/07/19 08:00 100.0 111 26 105/60 (75) 96 12/07/19 07:44 107 12/07/19 06:07 110 121/60 12/07/19 04:00 98.9 113 20 116/57 (76) 96 12/07/19 04:00 Nasal Cannula 3.0 12/07/19 04:00 115 12/07/19 00:42 107 12/07/19 00:00 97.9 108 22 113/58 (76) 96 12/07/19 00:00 Nasal Cannula 3.0 12/06/19 22:00 110 103/48 12/06/19 20:00 97.7 115 22 103/48 (66) 96 12/06/19 20:00 Nasal Cannula 3.0 12/06/19 20:00 109 12/06/19 16:00 99.0 110 22 119/60 (79) 97 12/06/19 16:00 Nasal Cannula 3.0 12/06/19 16:00 99 12/06/19 14:00 102 95/44 12/06/19 12:00 99.1 110 24 95/44 (61) 96 12/06/19 12:00 102 12/06/19 12:00 Nasal Cannula 3.0 Intake and Output 12/06/19 12/07/19 19:00 07:00 Intake Total 385.0 ml 770.0 ml Output Total 150 ml 600 ml Balance 235.0 ml 170.0 ml Intake Oral 100 ml 60 ml IV Total 285.0 ml 710.0 ml Output Urine Total 150 ml 600 ml # Voids 2 1 # Bowel Movements 2 Laboratory Tests Test 12/06/19 19:50 12/07/19 01:00 12/07/19 04:30 Random Vancomycin Level 4.2 ug/mL Hepatitis A IgM Antibody Negative (Negative) Hepatitis B Surface Antigen Negative (Negative) Hepatitis B Core IgM Antibody Negative (Negative) Hepatitis C Antibody 0.3 s/co ratio (0.0-0.9) HIV (1&2) Antibody Rapid Negative (NEGATIVE) Cortisol AM Sample Pending White Blood Count 15.2 K/UL (4.8-10.8) H Red Blood Count 4.16 M/UL (4.70-6.10) L Hemoglobin 13.0 G/DL (14.2-18.0) L Hematocrit 38.2 % (42.0-52.0) L Mean Corpuscular Volume 92 FL (80-99) Mean Corpuscular Hemoglobin 31.3 PG (27.0-31.0) H Mean Corpuscular Hemoglobin Concent 34.1 G/DL (32.0-36.0) Red Cell Distribution Width 12.3 % (11.6-14.8) Platelet Count 150 K/UL (150-450) Mean Platelet Volume 7.0 FL (6.5-10.1) Neutrophils (%) (Auto) % (45.0-75.0) Lymphocytes (%) (Auto) % (20.0-45.0) Monocytes (%) (Auto) % (1.0-10.0) Eosinophils (%) (Auto) % (0.0-3.0) Basophils (%) (Auto) % (0.0-2.0) Differential Total Cells Counted 100 Neutrophils % (Manual) 93 % (45-75) H Lymphocytes % (Manual) 4 % (20-45) L Monocytes % (Manual) 3 % (1-10) Eosinophils % (Manual) 0 % (0-3) Basophils % (Manual) 0 % (0-2) Band Neutrophils 0 % (0-8) Platelet Estimate Adequate Platelet Morphology Normal Red Blood Cell Morphology Normal Sodium Level 147 MMOL/L (136-145) H Potassium Level 3.3 MMOL/L (3.5-5.1) L Chloride Level 113 MMOL/L (98-107) H Carbon Dioxide Level 27 MMOL/L (21-32) Anion Gap 7 mmol/L (5-15) Blood Urea Nitrogen 33 mg/dL (7-18) H Creatinine 1.9 MG/DL (0.55-1.30) H Estimat Glomerular Filtration Rate mL/min (>60) Glucose Level 192 MG/DL (74-106) H Hemoglobin A1c 7.2 % (4.3-6.0) H Uric Acid 4.2 MG/DL (2.6-7.2) Calcium Level 8.2 MG/DL (8.5-10.1) L Phosphorus Level 2.0 MG/DL (2.5-4.9) L Magnesium Level 1.8 MG/DL (1.8-2.4) Iron Level 6 ug/dL (50-175) L Total Iron Binding Capacity 152 ug/dL (250-450) L Percent Iron Saturation 4 % (15-50) L Unsaturated Iron Binding 146 ug/dL (112-346) Ferritin 274 NG/ML (8-388) Total Bilirubin 5.7 MG/DL (0.2-1.0) H Direct Bilirubin 5.0 MG/DL (0.0-0.3) H Gamma Glutamyl Transpeptidase 130 U/L (5-85) H Aspartate Amino Transf (AST/SGOT) 45 U/L (15-37) H Alanine Aminotransferase (ALT/SGPT) 52 U/L (12-78) Alkaline Phosphatase 244 U/L (46-116) H Troponin I 0.000 ng/mL (0.000-0.056) C-Reactive Protein, Quantitative 41.2 mg/dL (0.00-0.90) H Pro-B-Type Natriuretic Peptide 1173 pg/mL (0-125) H Total Protein 6.4 G/DL (6.4-8.2) Albumin 1.9 G/DL (3.4-5.0) L Globulin 4.5 g/dL Albumin/Globulin Ratio 0.4 (1.0-2.7) L Triglycerides Level 80 MG/DL (30-150) Cholesterol Level 73 MG/DL (< 200) LDL Cholesterol 40 mg/dL (<100) HDL Cholesterol 13 MG/DL (40-60) L Cholesterol/HDL Ratio 5.6 (3.3-4.4) H Vitamin B12 Level 227 PG/ML (193-986) Folate 9.0 NG/ML (8.6-58.9) Thyroid Stimulating Hormone (TSH) 0.183 uiU/mL (0.358-3.740) Microbiology Date/Time Source Procedure Growth Status 12/05/19 17:40 Blood Blood Culture - Preliminary NO GROWTH AFTER 24 HOURS Resulted 12/05/19 17:30 Blood Blood Culture - Preliminary NO GROWTH AFTER 24 HOURS Resulted 12/05/19 17:40 Nasal Nares - Final Complete 12/05/19 17:40 Nasal Nares - Final Complete 12/05/19 18:40 Urine,Clean Catch Urine Culture - Preliminary Gram Negative Bacillus 1 Resulted 12/05/19 18:30 Rectum Received Objective HEAD AND NECK: Shows no JVD. LUNGS: Decreased breath sounds. CARDIOVASCULAR: Shows regular S1 and S2 with no gallop. ABDOMEN: Soft. EXTREMITIES: No pitting edema. Kyle Reynoso MD Dec 07, 2019 11:08
--- NOTE | 2019-12-07 11:12 | NUR ---
12/07...CONCERNING MRCP, PT O2 SATS DROPPED INTO THE 60'S WHEN LAID FLAT FOR THE MRI EXAM. PT WAS QUICKLY GIVEN MORE O2 AND PUT BACK ON [facility], WHERE PT O2 SAT IMPROVED. PT BROUGHT BACK TO ROOM, UNABLE TO TOLERATE EXAM. JAMAICA PICKENS WAS PRESENT AND WILL INFORM THE NAILA CLIFFORD 11:11
[2019-12-07 12:00] VITALS: BP 113/63
--- NOTE | 2019-12-07 12:07 | Nephrology Progress Note ---
Assessment/Plan Problem List: (1) Renal failure (ARF), acute on chronic (2) Alzheimer's dementia (3) Sepsis (4) UTI (urinary tract infection) Assessment Acute on Chronic renal failure- CHF- Past echo 55% EjFx Sepsis, High Lactate- Leukocytosis Left lower lobe pneumonia Alzheimer's dementia UTI (urinary tract infection) Hyperglycemia, DM II Plan 2D echo pending slow hydrate monitor renal parameters correct electrolytes BP and BS in check per orders Subjective ROS Limited/Unobtainable: No Constitutional: Reports: malaise, weakness Objective Objective Last 24 Hour Vital Signs Date Time Temp Pulse Resp B/P (MAP) Pulse Ox O2 Delivery O2 Flow Rate FiO2 12/07/19 08:00 Nasal Cannula 3.0 12/07/19 08:00 100.0 111 26 105/60 (75) 96 12/07/19 07:44 107 12/07/19 06:07 110 121/60 12/07/19 04:00 98.9 113 20 116/57 (76) 96 12/07/19 04:00 Nasal Cannula 3.0 12/07/19 04:00 115 12/07/19 00:42 107 12/07/19 00:00 97.9 108 22 113/58 (76) 96 12/07/19 00:00 Nasal Cannula 3.0 12/06/19 22:00 110 103/48 12/06/19 20:00 97.7 115 22 103/48 (66) 96 12/06/19 20:00 Nasal Cannula 3.0 12/06/19 20:00 109 12/06/19 16:00 99.0 110 22 119/60 (79) 97 12/06/19 16:00 Nasal Cannula 3.0 12/06/19 16:00 99 12/06/19 14:00 102 95/44 Intake and Output 12/06/19 12/07/19 19:00 07:00 Intake Total 385.0 ml 770.0 ml Output Total 150 ml 600 ml Balance 235.0 ml 170.0 ml Intake Oral 100 ml 60 ml IV Total 285.0 ml 710.0 ml Output Urine Total 150 ml 600 ml # Voids 2 1 # Bowel Movements 2 Laboratory Tests 12/06/19 19:50: Random Vancomycin Level 4.2, Hepatitis A IgM Antibody Negative, Hepatitis B Surface Antigen Negative, Hepatitis B Core IgM Antibody Negative, Hepatitis C Antibody 0.3, HIV (1&2) Antibody Rapid Negative 12/07/19 01:00: Cortisol AM Sample [Pending] 12/07/19 04:30: White Blood Count 15.2H, Red Blood Count 4.16L, Hemoglobin 13.0L, Hematocrit 38.2L, Mean Corpuscular Volume 92, Mean Corpuscular Hemoglobin 31.3H, Mean Corpuscular Hemoglobin Concent 34.1, Red Cell Distribution Width 12.3, Platelet Count 150, Mean Platelet Volume 7.0, Neutrophils (%) (Auto) , Lymphocytes (%) ( Auto) , Monocytes (%) (Auto) , Eosinophils (%) (Auto) , Basophils (%) (Auto) , Differential Total Cells Counted 100, Neutrophils % (Manual) 93H, Lymphocytes % (Manual) 4L, Monocytes % (Manual) 3, Eosinophils % (Manual) 0, Basophils % ( Manual) 0, Band Neutrophils 0, Platelet Estimate Adequate, Platelet Morphology Normal, Red Blood Cell Morphology Normal, Sodium Level 147H, Potassium Level 3.3L, Chloride Level 113H, Carbon Dioxide Level 27, Anion Gap 7, Blood Urea Nitrogen 33H, Creatinine 1.9H, Estimat Glomerular Filtration Rate , Glucose Level 192H, Hemoglobin A1c 7.2H, Uric Acid 4.2, Calcium Level 8.2L, Phosphorus Level 2.0L, Magnesium Level 1.8, Iron Level 6L, Total Iron Binding Capacity 152L , Percent Iron Saturation 4L, Unsaturated Iron Binding 146, Ferritin 274, Total Bilirubin 5.7H, Direct Bilirubin 5.0H, Gamma Glutamyl Transpeptidase 130H, Aspartate Amino Transf (AST/SGOT) 45H, Alanine Aminotransferase (ALT/SGPT) 52, Alkaline Phosphatase 244H, Troponin I 0.000, C-Reactive Protein, Quantitative 41.2H, Pro-B-Type Natriuretic Peptide 1173H, Total Protein 6.4, Albumin 1.9L, Globulin 4.5, Albumin/Globulin Ratio 0.4L, Triglycerides Level 80, Cholesterol Level 73, LDL Cholesterol 40, HDL Cholesterol 13L, Cholesterol/HDL Ratio 5.6H, Vitamin B12 Level 227, Folate 9.0, Thyroid Stimulating Hormone (TSH) 0.183L Height (Feet): 5 Height (Inches): 6.00 Weight (Pounds): 174 General Appearance: mild distress Cardiovascular: tachycardia Respiratory/Chest: decreased breath sounds Abdomen: distended Jose Ashraf MD Dec 07, 2019 12:07
--- NOTE | 2019-12-07 12:12 | Infectious Diseases Prog Note ---
Assessment/Plan Assessment/Plan IMPRESSION: Severe sepsis with tachycardia, lactic acidosis, leukocytosis, jaundice, US normal, hepatitis panel: negative Gram negative UTI, Diabetes mellitus, hypertension, Alzheimer dementia, acute renal failure. RECOMMENDATION: We will continue with Zosyn May discontinue vancomycin. We will follow up the cultures Subjective ROS Limited/Unobtainable: Yes Constitutional: Reports: fever, other - Pmml=512 Allergies: Coded Allergies: No Known Allergies (Unverified , 03/19/17) Objective Vital Signs Last 24 Hour Vital Signs Date Time Temp Pulse Resp B/P (MAP) Pulse Ox O2 Delivery O2 Flow Rate FiO2 12/07/19 08:00 Nasal Cannula 3.0 12/07/19 08:00 100.0 111 26 105/60 (75) 96 12/07/19 07:44 107 12/07/19 06:07 110 121/60 12/07/19 04:00 98.9 113 20 116/57 (76) 96 12/07/19 04:00 Nasal Cannula 3.0 12/07/19 04:00 115 12/07/19 00:42 107 12/07/19 00:00 97.9 108 22 113/58 (76) 96 12/07/19 00:00 Nasal Cannula 3.0 12/06/19 22:00 110 103/48 12/06/19 20:00 97.7 115 22 103/48 (66) 96 12/06/19 20:00 Nasal Cannula 3.0 12/06/19 20:00 109 12/06/19 16:00 99.0 110 22 119/60 (79) 97 12/06/19 16:00 Nasal Cannula 3.0 12/06/19 16:00 99 12/06/19 14:00 102 95/44 Height (Feet): 5 Height (Inches): 6.00 Weight (Pounds): 174 General Appearance: no acute distress HEENT: mucous membranes moist Respiratory/Chest: lungs clear Cardiovascular: tachycardia Abdomen: soft, non tender Extremities: no edema Neurologic/Psychiatric: alert Microbiology Date/Time Source Procedure Growth Status 12/05/19 17:40 Blood Blood Culture - Preliminary NO GROWTH AFTER 24 HOURS Resulted 12/05/19 17:30 Blood Blood Culture - Preliminary NO GROWTH AFTER 24 HOURS Resulted 12/05/19 17:40 Nasal Nares - Final Complete 12/05/19 17:40 Nasal Nares - Final Complete 12/05/19 18:40 Urine,Clean Catch Urine Culture - Preliminary Gram Negative Bacillus 1 Resulted 12/05/19 18:30 Rectum Received Laboratory Tests Test 12/06/19 19:50 12/07/19 01:00 12/07/19 04:30 Random Vancomycin Level 4.2 ug/mL Hepatitis A IgM Antibody Negative (Negative) Hepatitis B Surface Antigen Negative (Negative) Hepatitis B Core IgM Antibody Negative (Negative) Hepatitis C Antibody 0.3 s/co ratio (0.0-0.9) HIV (1&2) Antibody Rapid Negative (NEGATIVE) Cortisol AM Sample Pending White Blood Count 15.2 K/UL (4.8-10.8) H Red Blood Count 4.16 M/UL (4.70-6.10) L Hemoglobin 13.0 G/DL (14.2-18.0) L Hematocrit 38.2 % (42.0-52.0) L Mean Corpuscular Volume 92 FL (80-99) Mean Corpuscular Hemoglobin 31.3 PG (27.0-31.0) H Mean Corpuscular Hemoglobin Concent 34.1 G/DL (32.0-36.0) Red Cell Distribution Width 12.3 % (11.6-14.8) Platelet Count 150 K/UL (150-450) Mean Platelet Volume 7.0 FL (6.5-10.1) Neutrophils (%) (Auto) % (45.0-75.0) Lymphocytes (%) (Auto) % (20.0-45.0) Monocytes (%) (Auto) % (1.0-10.0) Eosinophils (%) (Auto) % (0.0-3.0) Basophils (%) (Auto) % (0.0-2.0) Differential Total Cells Counted 100 Neutrophils % (Manual) 93 % (45-75) H Lymphocytes % (Manual) 4 % (20-45) L Monocytes % (Manual) 3 % (1-10) Eosinophils % (Manual) 0 % (0-3) Basophils % (Manual) 0 % (0-2) Band Neutrophils 0 % (0-8) Platelet Estimate Adequate Platelet Morphology Normal Red Blood Cell Morphology Normal Sodium Level 147 MMOL/L (136-145) H Potassium Level 3.3 MMOL/L (3.5-5.1) L Chloride Level 113 MMOL/L (98-107) H Carbon Dioxide Level 27 MMOL/L (21-32) Anion Gap 7 mmol/L (5-15) Blood Urea Nitrogen 33 mg/dL (7-18) H Creatinine 1.9 MG/DL (0.55-1.30) H Estimat Glomerular Filtration Rate mL/min (>60) Glucose Level 192 MG/DL (74-106) H Hemoglobin A1c 7.2 % (4.3-6.0) H Uric Acid 4.2 MG/DL (2.6-7.2) Calcium Level 8.2 MG/DL (8.5-10.1) L Phosphorus Level 2.0 MG/DL (2.5-4.9) L Magnesium Level 1.8 MG/DL (1.8-2.4) Iron Level 6 ug/dL (50-175) L Total Iron Binding Capacity 152 ug/dL (250-450) L Percent Iron Saturation 4 % (15-50) L Unsaturated Iron Binding 146 ug/dL (112-346) Ferritin 274 NG/ML (8-388) Total Bilirubin 5.7 MG/DL (0.2-1.0) H Direct Bilirubin 5.0 MG/DL (0.0-0.3) H Gamma Glutamyl Transpeptidase 130 U/L (5-85) H Aspartate Amino Transf (AST/SGOT) 45 U/L (15-37) H Alanine Aminotransferase (ALT/SGPT) 52 U/L (12-78) Alkaline Phosphatase 244 U/L (46-116) H Troponin I 0.000 ng/mL (0.000-0.056) C-Reactive Protein, Quantitative 41.2 mg/dL (0.00-0.90) H Pro-B-Type Natriuretic Peptide 1173 pg/mL (0-125) H Total Protein 6.4 G/DL (6.4-8.2) Albumin 1.9 G/DL (3.4-5.0) L Globulin 4.5 g/dL Albumin/Globulin Ratio 0.4 (1.0-2.7) L Triglycerides Level 80 MG/DL (30-150) Cholesterol Level 73 MG/DL (< 200) LDL Cholesterol 40 mg/dL (<100) HDL Cholesterol 13 MG/DL (40-60) L Cholesterol/HDL Ratio 5.6 (3.3-4.4) H Vitamin B12 Level 227 PG/ML (193-986) Folate 9.0 NG/ML (8.6-58.9) Thyroid Stimulating Hormone (TSH) 0.183 uiU/mL (0.358-3.740) Current Medications Medications (Trade) Dose Ordered Sig/Filemon Route PRN Reason Start Time Stop Time Status Last Admin Dose Admin Acetaminophen (Tylenol) 325 mg Q6H PRN ORAL Mild Pain/Temp > 100.5 12/07/19 09:30 01/06/20 09:29 Albuterol/ Ipratropium (Albuterol/ Ipratropium) 3 ml Q4H PRN HHN Shortness of Breath 12/05/19 23:15 12/10/19 23:14 12/07/19 12:02 Dextrose (Dextrose 50%) 25 ml Q30M PRN IV Hypoglycemia 12/06/19 11:45 01/05/20 11:44 Dextrose (Dextrose 50%) 50 ml Q30M PRN IV Hypoglycemia 12/06/19 11:45 01/05/20 11:44 Diltiazem HCl (Cardizem) 30 mg EVERY 8 HOURS ORAL 12/06/19 14:00 01/05/20 13:59 12/07/19 06:07 Docusate Sodium (Colace) 100 mg TWICE A DAY ORAL 12/06/19 18:00 01/05/20 17:59 12/07/19 08:05 Insulin Aspart (NovoLOG) BEFORE MEALS AND HS SUBQ 12/06/19 16:30 01/05/20 16:29 12/07/19 11:46 Pantoprazole (Protonix) 40 mg DAILY ORAL 12/06/19 14:45 01/05/20 14:44 12/07/19 08:05 Piperacillin Sod/ Tazobactam Sod 3.375 gm/Sodium Chloride 110 ml @ 27.5 mls/hr EVERY 8 HOURS IVPB 12/06/19 14:00 12/11/19 13:59 12/07/19 06:02 Potassium Phosphate 20 mm/ Sodium Chloride 281.6667 ml @ 46.944 m... ONCE ONCE IV 12/07/19 11:00 12/07/19 16:59 12/07/19 11:43 Risperidone (RisperDAL) 0.5 mg Q12HR ORAL 12/06/19 09:00 01/05/20 08:59 12/07/19 08:06 Sodium Chloride 1,000 ml @ 50 mls/hr Q20H IV 12/06/19 14:45 01/05/20 14:44 12/07/19 09:50 Tamsulosin HCl (Flomax) 0.4 mg BEDTIME ORAL 12/06/19 21:00 01/05/20 20:59 12/06/19 21:37 Vancomycin HCl (Vanco rx to dose) 1 ea DAILY PRN MISC Per rx protocol 12/06/19 10:30 01/05/20 10:29 Enrike Hadley MD Dec 07, 2019 12:12
--- NOTE | 2019-12-07 13:10 | GI Progress Note ---
Assessment/Plan Problems: (1) Elevated LFTs ICD Codes: R94.5 - Abnormal results of liver function studies SNOMED: 499930238, 448771856 (2) Biliary obstruction ICD Codes: K83.1 - Obstruction of bile duct SNOMED: 470838076 (3) Cholestasis ICD Codes: K83.1 - Obstruction of bile duct SNOMED: 54133898 (4) Hyperbilirubinemia ICD Codes: E80.6 - Other disorders of bilirubin metabolism SNOMED: 62257144 Status: unchanged Status Narrative Discussed with Dr. Escalante. Assessment/Plan This is a 89-year-old male patient that presented with hyperbilirubinemia with no transaminitis 2/2 to cholestasis vs biliary obstruction. abdominal US reviewed hepatitis panel negative GGT elevation MRCP when more stable Less likely autoimmune given no history of hyperbilirubinemia from previous admissions May need liver biopsy at some point for definitive diagnosis Avoid hepatotoxic's Repeat liver function test for tomorrow We will follow along on a daily basis with any additional recommendations The patient was seen and examined at bedside and all new and available data was reviewed in the patients chart. I agree with the above findings, impression and plan. (Patient seen earlier today. Signature stamp does not reflect patient encounter time.). - Bladimir Escalante MD Subjective Subjective limited Objective Last 24 Hour Vital Signs Date Time Temp Pulse Resp B/P (MAP) Pulse Ox O2 Delivery O2 Flow Rate FiO2 12/07/19 12:14 100 22 97 Nasal Cannula 3.0 32 102 20 95 12/07/19 12:00 Nasal Cannula 3.0 12/07/19 08:00 Nasal Cannula 3.0 12/07/19 08:00 100.0 111 26 105/60 (75) 96 12/07/19 07:44 107 12/07/19 07:00 102 22 96 Nasal Cannula 3.0 32 12/07/19 06:07 110 121/60 12/07/19 04:00 98.9 113 20 116/57 (76) 96 12/07/19 04:00 Nasal Cannula 3.0 12/07/19 04:00 115 12/07/19 00:42 107 12/07/19 00:00 97.9 108 22 113/58 (76) 96 12/07/19 00:00 Nasal Cannula 3.0 1/27/20 22:00 110 103/48 12/06/19 20:00 97.7 115 22 103/48 (66) 96 12/06/19 20:00 Nasal Cannula 3.0 12/06/19 20:00 109 12/06/19 16:00 99.0 110 22 119/60 (79) 97 12/06/19 16:00 Nasal Cannula 3.0 12/06/19 16:00 99 12/06/19 14:00 102 95/44 Intake and Output 12/06/19 12/07/19 19:00 07:00 Intake Total 385.0 ml 770.0 ml Output Total 150 ml 600 ml Balance 235.0 ml 170.0 ml Intake Oral 100 ml 60 ml IV Total 285.0 ml 710.0 ml Output Urine Total 150 ml 600 ml # Voids 2 1 # Bowel Movements 2 Laboratory Tests Test 12/06/19 19:50 12/07/19 01:00 12/07/19 04:30 Random Vancomycin Level 4.2 ug/mL Hepatitis A IgM Antibody Negative (Negative) Hepatitis B Surface Antigen Negative (Negative) Hepatitis B Core IgM Antibody Negative (Negative) Hepatitis C Antibody 0.3 s/co ratio (0.0-0.9) HIV (1&2) Antibody Rapid Negative (NEGATIVE) Cortisol AM Sample 17.9 UG/DL White Blood Count 15.2 K/UL (4.8-10.8) H Red Blood Count 4.16 M/UL (4.70-6.10) L Hemoglobin 13.0 G/DL (14.2-18.0) L Hematocrit 38.2 % (42.0-52.0) L Mean Corpuscular Volume 92 FL (80-99) Mean Corpuscular Hemoglobin 31.3 PG (27.0-31.0) H Mean Corpuscular Hemoglobin Concent 34.1 G/DL (32.0-36.0) Red Cell Distribution Width 12.3 % (11.6-14.8) Platelet Count 150 K/UL (150-450) Mean Platelet Volume 7.0 FL (6.5-10.1) Neutrophils (%) (Auto) % (45.0-75.0) Lymphocytes (%) (Auto) % (20.0-45.0) Monocytes (%) (Auto) % (1.0-10.0) Eosinophils (%) (Auto) % (0.0-3.0) Basophils (%) (Auto) % (0.0-2.0) Differential Total Cells Counted 100 Neutrophils % (Manual) 93 % (45-75) H Lymphocytes % (Manual) 4 % (20-45) L Monocytes % (Manual) 3 % (1-10) Eosinophils % (Manual) 0 % (0-3) Basophils % (Manual) 0 % (0-2) Band Neutrophils 0 % (0-8) Platelet Estimate Adequate Platelet Morphology Normal Red Blood Cell Morphology Normal Sodium Level 147 MMOL/L (136-145) H Potassium Level 3.3 MMOL/L (3.5-5.1) L Chloride Level 113 MMOL/L (98-107) H Carbon Dioxide Level 27 MMOL/L (21-32) Anion Gap 7 mmol/L (5-15) Blood Urea Nitrogen 33 mg/dL (7-18) H Creatinine 1.9 MG/DL (0.55-1.30) H Estimat Glomerular Filtration Rate mL/min (>60) Glucose Level 192 MG/DL (74-106) H Hemoglobin A1c 7.2 % (4.3-6.0) H Uric Acid 4.2 MG/DL (2.6-7.2) Calcium Level 8.2 MG/DL (8.5-10.1) L Phosphorus Level 2.0 MG/DL (2.5-4.9) L Magnesium Level 1.8 MG/DL (1.8-2.4) Iron Level 6 ug/dL (50-175) L Total Iron Binding Capacity 152 ug/dL (250-450) L Percent Iron Saturation 4 % (15-50) L Unsaturated Iron Binding 146 ug/dL (112-346) Ferritin 274 NG/ML (8-388) Total Bilirubin 5.7 MG/DL (0.2-1.0) H Direct Bilirubin 5.0 MG/DL (0.0-0.3) H Gamma Glutamyl Transpeptidase 130 U/L (5-85) H Aspartate Amino Transf (AST/SGOT) 45 U/L (15-37) H Alanine Aminotransferase (ALT/SGPT) 52 U/L (12-78) Alkaline Phosphatase 244 U/L (46-116) H Troponin I 0.000 ng/mL (0.000-0.056) C-Reactive Protein, Quantitative 41.2 mg/dL (0.00-0.90) H Pro-B-Type Natriuretic Peptide 1173 pg/mL (0-125) H Total Protein 6.4 G/DL (6.4-8.2) Albumin 1.9 G/DL (3.4-5.0) L Globulin 4.5 g/dL Albumin/Globulin Ratio 0.4 (1.0-2.7) L Triglycerides Level 80 MG/DL (30-150) Cholesterol Level 73 MG/DL (< 200) LDL Cholesterol 40 mg/dL (<100) HDL Cholesterol 13 MG/DL (40-60) L Cholesterol/HDL Ratio 5.6 (3.3-4.4) H Vitamin B12 Level 227 PG/ML (193-986) Folate 9.0 NG/ML (8.6-58.9) Thyroid Stimulating Hormone (TSH) 0.183 uiU/mL (0.358-3.740) Height (Feet): 5 Height (Inches): 6.00 Weight (Pounds): 174 General Appearance: alert Cardiovascular: normal rate Respiratory/Chest: normal breath sounds, no respiratory distress Abdominal Exam: non tender Demetrio Ash NP Dec 07, 2019 13:09
--- NOTE | 2019-12-07 13:18 | Consultation ---
History of Present Illness General Date patient seen: Dec 07, 2019 Reason for Hospitalization: Dyspnea/Respdistress Present Illness HPI this is a 89 year old male is sent from Health system because of fever and hypoxia. Patient has Alzheimer's dementia and answers yes to most questions. He denies vomiting or diarrhea. He does say he has dysuria. On admission noted to have elevated LFTs. surgery called to evaluate and assist with care ROS limited, patient with history of dementia. Labs reviewed; total bilirubin elevated, direct bilirubin elevated. At this time abdominal ultrasound is limited given study results. Patient has history of colonoscopy July 2017 notable for distal colitis. MRCP pending. Leukocytosis. Allergies: Coded Allergies: No Known Allergies (Unverified , 03/19/17) Medication History Scheduled Acetaminophen* (Acetaminophen 325MG Tablet*), 650 MG ORAL DAILY, (Reported) Amino Acids/Protein Hydrolys (Pro-Stat Liquid), 30 ML ORAL DAILY, (Reported) Aspirin* (Aspirin*), 81 MG ORAL DAILY, (Reported) Cranberry Fruit (Cranberry), 900 MG PO BID, (Reported) Diltiazem Hcl* (Cardizem*), 30 MG PO Q8HR, (Reported) Docusate Sodium* (Colace*), 100 MG ORAL DAILY, (Reported) Potassium Chloride (Potassium Chloride), 20 MEQ PO DAILY, (Reported) Risperidone* (Risperdal*), 0.5 MG ORAL DAILY, (Reported) Risperidone* (Risperdal*), 1 MG PO DAILY, (Reported) Tamsulosin HCl (Flomax), 0.4 MG ORAL DAILY, (Reported) Scheduled PRN Acetaminophen (Tylenol), 650 MG ORAL Q4HR PRN for Mild Pain/Temp > 100.5, ( Reported) Bisacodyl* (Dulcolax*), 10 MG RECTAL DAILY PRN for IF MOM INEFFECTIVE, (Reported ) Magnesium Hydroxide* (Milk Of Magnesia*), 30 ML ORAL DAILY PRN for Constipation, (Reported) Na Phos,M-B/Na Phos,Di-Ba* (Fleet Enema*), 133 ML RECTAL EVERY OTHER DAY PRN for IF DUCOLAX INEFFECTIVE, (Reported) Miscellaneous Medications Insulin Lispro (Humalog), 0 SUBQ, (Reported) Discontinued Medications Acetaminophen (Tylenol), 650 MG ORAL Q6H PRN for Prn Pain/Headache/Temp > 101, ( Reported) Discontinued Reason: Medication dose changed Risperidone* (Risperdal*), 0.5 MG ORAL QHS, (Reported) Discontinued Reason: Prescription changed Patient History Limited by: age, medical condition History Provided By: Patient, Medical Record, PMD Healthcare decision maker Resuscitation status Full Code Advanced Directive on File Past Medical/Surgical History Past Medical/Surgical History: (1) CHF exacerbation (2) Hyperglycemia (3) Sepsis (4) Alzheimer's dementia (5) Renal failure (ARF), acute on chronic (6) UTI (urinary tract infection) (7) Left lower lobe pneumonia (8) Hyperbilirubinemia (9) Cholestasis (10) Biliary obstruction (11) Elevated LFTs Review of Systems Review of Symptoms General ROS: no weight loss or fever Psychological ROS: no depression or mood changes, no memory loss Ophthalmic ROS: no visual changes or eye irritation ENT ROS: no nasal congestion, hearing loss, dizziness Allergy and Immunology ROS: no allergic symptoms or urticaria Hematological and Lymphatic ROS: no swollen glands, unusual bleeding or bruising Endocrine ROS: no polyuria, polydipsia, weight changes, temperature intolerance Respiratory ROS: no cough, shortness of breath, or wheezing Cardiovascular ROS: no chest pain or dyspnea on exertion Gastrointestinal ROS: denies abdominal pain, bright red blood in stool. Musculoskeletal ROS: no myalgias or arthralgias Neurological ROS: no TIA or stroke symptoms Dermatological ROS: no new or changing skin lesions, rashes or pruritis Very limited given patient's advanced dementia Physical Exam Physical Exam General appearance: alert, cooperative, no distress, appears stated age Head: Normocephalic, without obvious abnormality, atraumatic Eyes: conjunctivae/corneas clear. PERRL, EOM's intact. Fundi benign Throat: Lips, mucosa, and tongue normal. Teeth and gums normal Neck: supple, symmetrical, trachea midline, no adenopathy, thyroid: not enlarged, symmetric, no tenderness/mass/nodules, no carotid bruit and no JVD Lungs: clear to auscultation bilaterally Heart: regular rate and rhythm, S1, S2 normal, no murmur, click, rub or gallop Abdomen: soft, non-tender. Bowel sounds normal. No masses, no organomegaly Extremities: extremities normal, atraumatic, no cyanosis or edema Pulses: 2+ and symmetric Skin: Skin color, texture, turgor normal. No rashes or lesions Neurologic: Grossly normal Last 24 Hour Vital Signs Date Time Temp Pulse Resp B/P (MAP) Pulse Ox O2 Delivery O2 Flow Rate FiO2 12/07/19 12:14 100 22 97 Nasal Cannula 3.0 32 102 20 95 12/07/19 12:00 Nasal Cannula 3.0 12/07/19 08:00 Nasal Cannula 3.0 12/07/19 08:00 100.0 111 26 105/60 (75) 96 12/07/19 07:44 107 12/07/19 07:00 102 22 96 Nasal Cannula 3.0 32 12/07/19 06:07 110 121/60 12/07/19 04:00 98.9 113 20 116/57 (76) 96 12/07/19 04:00 Nasal Cannula 3.0 12/07/19 04:00 115 12/07/19 00:42 107 12/07/19 00:00 97.9 108 22 113/58 (76) 96 12/07/19 00:00 Nasal Cannula 3.0 12/06/19 22:00 110 103/48 12/06/19 20:00 97.7 115 22 103/48 (66) 96 12/06/19 20:00 Nasal Cannula 3.0 12/06/19 20:00 109 12/06/19 16:00 99.0 110 22 119/60 (79) 97 12/06/19 16:00 Nasal Cannula 3.0 12/06/19 16:00 99 12/06/19 14:00 102 95/44 Intake and Output 12/06/19 12/07/19 19:00 07:00 Intake Total 385.0 ml 770.0 ml Output Total 150 ml 600 ml Balance 235.0 ml 170.0 ml Intake Oral 100 ml 60 ml IV Total 285.0 ml 710.0 ml Output Urine Total 150 ml 600 ml # Voids 2 1 # Bowel Movements 2 Laboratory Tests Test 12/06/19 19:50 12/07/19 01:00 12/07/19 04:30 Random Vancomycin Level 4.2 ug/mL Hepatitis A IgM Antibody Negative (Negative) Hepatitis B Surface Antigen Negative (Negative) Hepatitis B Core IgM Antibody Negative (Negative) Hepatitis C Antibody 0.3 s/co ratio (0.0-0.9) HIV (1&2) Antibody Rapid Negative (NEGATIVE) Cortisol AM Sample 17.9 UG/DL White Blood Count 15.2 K/UL (4.8-10.8) H Red Blood Count 4.16 M/UL (4.70-6.10) L Hemoglobin 13.0 G/DL (14.2-18.0) L Hematocrit 38.2 % (42.0-52.0) L Mean Corpuscular Volume 92 FL (80-99) Mean Corpuscular Hemoglobin 31.3 PG (27.0-31.0) H Mean Corpuscular Hemoglobin Concent 34.1 G/DL (32.0-36.0) Red Cell Distribution Width 12.3 % (11.6-14.8) Platelet Count 150 K/UL (150-450) Mean Platelet Volume 7.0 FL (6.5-10.1) Neutrophils (%) (Auto) % (45.0-75.0) Lymphocytes (%) (Auto) % (20.0-45.0) Monocytes (%) (Auto) % (1.0-10.0) Eosinophils (%) (Auto) % (0.0-3.0) Basophils (%) (Auto) % (0.0-2.0) Differential Total Cells Counted 100 Neutrophils % (Manual) 93 % (45-75) H Lymphocytes % (Manual) 4 % (20-45) L Monocytes % (Manual) 3 % (1-10) Eosinophils % (Manual) 0 % (0-3) Basophils % (Manual) 0 % (0-2) Band Neutrophils 0 % (0-8) Platelet Estimate Adequate Platelet Morphology Normal Red Blood Cell Morphology Normal Sodium Level 147 MMOL/L (136-145) H Potassium Level 3.3 MMOL/L (3.5-5.1) L Chloride Level 113 MMOL/L (98-107) H Carbon Dioxide Level 27 MMOL/L (21-32) Anion Gap 7 mmol/L (5-15) Blood Urea Nitrogen 33 mg/dL (7-18) H Creatinine 1.9 MG/DL (0.55-1.30) H Estimat Glomerular Filtration Rate mL/min (>60) Glucose Level 192 MG/DL (74-106) H Hemoglobin A1c 7.2 % (4.3-6.0) H Uric Acid 4.2 MG/DL (2.6-7.2) Calcium Level 8.2 MG/DL (8.5-10.1) L Phosphorus Level 2.0 MG/DL (2.5-4.9) L Magnesium Level 1.8 MG/DL (1.8-2.4) Iron Level 6 ug/dL (50-175) L Total Iron Binding Capacity 152 ug/dL (250-450) L Percent Iron Saturation 4 % (15-50) L Unsaturated Iron Binding 146 ug/dL (112-346) Ferritin 274 NG/ML (8-388) Total Bilirubin 5.7 MG/DL (0.2-1.0) H Direct Bilirubin 5.0 MG/DL (0.0-0.3) H Gamma Glutamyl Transpeptidase 130 U/L (5-85) H Aspartate Amino Transf (AST/SGOT) 45 U/L (15-37) H Alanine Aminotransferase (ALT/SGPT) 52 U/L (12-78) Alkaline Phosphatase 244 U/L (46-116) H Troponin I 0.000 ng/mL (0.000-0.056) C-Reactive Protein, Quantitative 41.2 mg/dL (0.00-0.90) H Pro-B-Type Natriuretic Peptide 1173 pg/mL (0-125) H Total Protein 6.4 G/DL (6.4-8.2) Albumin 1.9 G/DL (3.4-5.0) L Globulin 4.5 g/dL Albumin/Globulin Ratio 0.4 (1.0-2.7) L Triglycerides Level 80 MG/DL (30-150) Cholesterol Level 73 MG/DL (< 200) LDL Cholesterol 40 mg/dL (<100) HDL Cholesterol 13 MG/DL (40-60) L Cholesterol/HDL Ratio 5.6 (3.3-4.4) H Vitamin B12 Level 227 PG/ML (193-986) Folate 9.0 NG/ML (8.6-58.9) Thyroid Stimulating Hormone (TSH) 0.183 uiU/mL (0.358-3.740) Height (Feet): 5 Height (Inches): 6.00 Weight (Pounds): 174 Medications Current Medications Medications (Trade) Dose Ordered Sig/Filemon Route PRN Reason Start Time Stop Time Status Last Admin Dose Admin Acetaminophen (Tylenol) 325 mg Q6H PRN ORAL Mild Pain/Temp > 100.5 12/07/19 09:30 01/06/20 09:29 Albuterol/ Ipratropium (Albuterol/ Ipratropium) 3 ml Q4H PRN HHN Shortness of Breath 12/05/19 23:15 12/10/19 23:14 12/07/19 12:02 Dextrose (Dextrose 50%) 25 ml Q30M PRN IV Hypoglycemia 12/06/19 11:45 01/05/20 11:44 Dextrose (Dextrose 50%) 50 ml Q30M PRN IV Hypoglycemia 12/06/19 11:45 01/05/20 11:44 Diltiazem HCl (Cardizem) 30 mg EVERY 8 HOURS ORAL 12/06/19 14:00 01/05/20 13:59 12/07/19 06:07 Docusate Sodium (Colace) 100 mg TWICE A DAY ORAL 12/06/19 18:00 01/05/20 17:59 12/07/19 08:05 Insulin Aspart (NovoLOG) BEFORE MEALS AND HS SUBQ 12/06/19 16:30 01/05/20 16:29 12/07/19 11:46 Pantoprazole (Protonix) 40 mg DAILY ORAL 12/06/19 14:45 01/05/20 14:44 12/07/19 08:05 Piperacillin Sod/ Tazobactam Sod 3.375 gm/Sodium Chloride 110 ml @ 27.5 mls/hr EVERY 8 HOURS IVPB 12/06/19 14:00 12/11/19 13:59 12/07/19 06:02 Potassium Phosphate 20 mm/ Sodium Chloride 281.6667 ml @ 46.944 m... ONCE ONCE IV 12/07/19 11:00 12/07/19 16:59 12/07/19 11:43 Risperidone (RisperDAL) 0.5 mg Q12HR ORAL 12/06/19 09:00 01/05/20 08:59 12/07/19 08:06 Sodium Chloride 1,000 ml @ 50 mls/hr Q20H IV 12/06/19 14:45 01/05/20 14:44 12/07/19 09:50 Tamsulosin HCl (Flomax) 0.4 mg BEDTIME ORAL 12/06/19 21:00 01/05/20 20:59 12/06/19 21:37 Assessment/Plan Problem List: (1) Sepsis Assessment & Plan: 89-year-old male with leukocytosis, fevers, tachycardia, abnormal labs. Abdominal ultrasound nondiagnostic MRCP pending Likely biliary obstruction potentially due to mass versus stone possible cholangitis discussed with GI Continue IV antibiotics per infectious disease No acute surgical invention planned IV fluids Trend labs Resuscitation We will follow with recommendations Thank you for let me participate in patient's care ICD Codes: A41.9 - Sepsis, unspecified organism SNOMED: 72235931 Qualifiers: Qualified Codes: A41.9 - Sepsis, unspecified organism; R65.20 - Severe sepsis without septic shock; N17.9 - Acute kidney failure, unspecified (2) Biliary obstruction Assessment & Plan: Findings: The study was limited due to bowel gas body habitus. The liver is mildly heterogeneous with questionable surface nodularity. Doppler interrogation of the main portal vein shows patency with hepatopedal, monophasic flow. There is no biliary ductal dilatation identified. Gallbladder is grossly unremarkable. There demonstrated part of the pancreas, aorta and IVC show no obvious abnormalities. The structures are poorly seen. Both kidneys are poorly seen. There is no obvious hydronephrosis. IMPRESSION: No acute findings Very limited study ICD Codes: K83.1 - Obstruction of bile duct SNOMED: 902924378 (3) Elevated LFTs ICD Codes: R94.5 - Abnormal results of liver function studies SNOMED: 431406979, [id number] [facility] Hospital declaration INPATIENT level of care is warranted for this patient because patient is a 89 year old with who presents with suspicion of . I have a high level of concern because . Patient is at high risk for . Plan of care/treatment include . Patient care is expected to be greater than 2 midnights. OBSERVATION level of care is warranted for this patient. Patient is a 89 year old with who presents with . Patient will be admitted for 1 midnight, but if additional night(s) is/are necessary, patient will be converted to inpatient status for the entire hospitalization Disposition: Once the patient is stable to leave the hospital, I anticipate the patient will likely be discharged to the following environment: Estimated discharge date: I spent 70 minutes on this patient's case, and minutes was dedicated to counseling and/or care coordination. MIPS (Merit-based Incentive Payment System) Applicable CPT: 36852, 87346 CHECK ALL THAT ARE MET: Measure #5 (CHF): All ages. Prescribe TERESA/ARB upon discharge for patients with left ventricular systolic dysfunction. If not, the reason is clearly documented in the medical chart. Measure #8 (CHF): All ages. Prescribe a beta aria upon discharge for patients with left ventricular systolic dysfunction. If not, the reason is clearly documented in the medical chart. Measure #47 Advance care plan or surrogate decision maker documented in the medical record. Measure #130 The provider has documented, updated, or reviewed the patients current medication list and has documented it in the patients note. Measure #374 (All): Send report to referring provider. Measure #407(Sepsis due to MSSA bacteremia): Age 18+ Patient treated with a beta-lactam antibiotic (Nafcillin, Oxacillin or Cefazolin) as definitive therapy. MEDICAL COMPLEXITY High complexity medical decision making (need 2/3 categories) Problem - need 4 points Acute/new problem with new plan for workup (4 points, 1 max) Acute/new problem without additional workup (3 points, 1 max) Unstable chronic problem actively being managed (2 point each, 2 max) Stable chronic problem actively being managed (1 point each, 2 max) Self-limited/transient process (constipation, muscle ache, etc) (1 point each , 2 max) Data - need 4 points Reviewed labs/imaging studies (1 points, 2 max) Independent review of imaging (EKG, xrays, etc) (2 points, 2 max) Discussed case with consult/other MD/RN (2 points, 2 max) High Risk - qualify if have one of the following: Severe exacerbation of acute problem, acute mental status change, IV narcotics , monitoring drug levels (vancomycin, INR, tacrolimus etc) Ajit Mcnulty Dec 07, 2019 13:18
--- NOTE | 2019-12-07 14:27 | NUR ---
ST NOTES: REFERRED FOR SWALLOW EVAL BY DR PEREZ, SEE FULL REPORT. 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 PER HE ARCHIBALD LT ARTIFICIAL NUTRITION, FULL CODE. 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 HE HAD MILD ESOPHAGEAL DYSPHAGIA WITH TRACE RETROGRADE BACKFLOW THROUGH THE PHARYNGOESOPHAGEAL SEGMENT OPENING. HE WAS PLACED ON A [facility] MEC SOFT GROUND AND NECTAR THICK LIQUID DIET AT THAT TIME. AT SNF ON [facility] [place] SOFT BITE DIET AND THIN LIQUIDS. NONFAT MILK NO JUICE. [facility] (RECENTLY DOWNGRADED FROM GROUND) AND THIN LIQUIDS IN CHART. PER RNNELIA, THE PATIENT WAS NOT ABLE TO SWALLOW EVEN 1/2 TSP NECTAR THICK LIQUIDS SO SHE SUCTIONED IT OUT OF HIS MOUTH. INTAKE RECORD HE TOOK 50-100% OF DIET. PER JANIE DIXON, THE PATIENT WAS COUGHING ON [facility] SOFT GROUND AND THIN LIQUIDS DURING MEAL AND HE WOULD SOMETIMES SPIT OUT THE FOOD. SPOKE WITH HIS DTR WHO SAID HE IS FROM [place] AND HAS A GOOD APPETITE. EXPLAINED THE NEED FOR SHORT TERM NGT UNTIL HE HAS THE MOD BARIUM SWALLOW STUDY TO KNOW HOW TO BEST FEED HIM. ALERT WITH CUES ON 2 LITERS NC. ABLE TO COMMUNICATE SOME NEEDS IN BREATHY VOICE. MOUTH BREATHING ON 3 L NC RESP RATE UP TO 20 TO 26 HIGH, Fi02 35% GOOD SATS 96. 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 GIVEN TSP OF NECTAR THICK LIQUID (TO ASSESS MBSS READINESS), HE SWALLOWED AFTER A 2 TO 4 SECONDS WITH FAIR HYOLARYNGEAL EXCURSION, NO OVERT ASPIRATION BUT HAS HIGH SILENT ASPIRATION RISK (AND HAS A PNA NOW) RISK FOR SLOW AND POOR INTAKE LIKELY (VERY TIRED AND PERIODS OF CHOKING WITH MEALS/LIQUIDS) PLAN: CONSERVATIVELY, CONSIDER TEMPORARY NONORAL FEEDINGS 12FR NGT FOR NOW CONTINUE WITH ORAL CARE CONSIDER MOD BARIUM SWALLOW STUDY TOMORROW OR WHEN READY TO FURTHER ASSESS SWALLOW, DETERMINE SILENT ASP RISK, AND ATTEMPT TRIAL TX ALTHOUGH HIS POLST STATES OK TO HAVE LT ARTIFICIAL NUTRITION, THE PATIENT HAS ADVANCED DEMENTIA AND LIKELY SHOULD CONTINUE TO HAVE PO FOR COMFORT FEEDING AND QUALITY OF LIFE PURPOSES (HE LIKES TO EAT PER HIS DTR). RNNELIA, LEFT MESSAGE WITH DR PEREZ AND DEEPTI BUNN NUTRIENT MANAGEMENT SPECIALIST AGREED WITH NGT AND MBSS. EDUCATED/TRAINED RN IN POSTED ORAL CARE AND ASP PREC WITH NGT FEEDINGS WHEN RUNNING. HIS PERSIAN-SPEAKING DTR WAS IN AGREEMENT WITH ABOVE NOTED PLAN Addendum: 12/07/19 at 1443 by YUNG NULL MANAGER ECONOMIC DID NOT TOLERATE 12 PERSIAN NGT INSERTION AND HIS DTR WANTS HIM TO HAVE SOME PO FOR QUALITY OF LIFE. WILL HOLD OFF ON NGT FOR NOW. PO TRIALS OF JELLO TSP GIVEN, HE CHEWED FOR A FEW SECONDS AND SWALLOWED (COUGHED AFTER SWALLOW 1/3 TIMES).
[2019-12-07] MEDS ORDERED: Varibar Nectar 240ml MC PRN (14:45)
[2019-12-07] MEDS ORDERED: Varibar Pudding 230ml MC PRN (14:45)
[2019-12-07] MEDS ORDERED: Varibar Honey 250ml MC PRN (14:45)
--- NOTE | 2019-12-07 15:04 | NUR ---
NURSE NOTES: per recs from ST caitlin Monterroso, hold NGT insertion until video swallow is done kirstie. keep NPO.
--- NOTE | 2019-12-07 15:21 | NUR ---
RD ASSESSMENT & RECOMMENDATIONS SEE CARE ACTIVITY FOR COMPLETE ASSESSMENT DAILY ESTIMATED NEEDS: Needs based on DM, CHF, 67 kg adj 25-30 kcals/kg total kcals 1-1.3 g protein/kg 67-87 g total protein 20-25 mL/kg total fluid mLs NUTRITION DIAGNOSIS: * Swallowing difficulty R/T dysphagia as evidenced by BRICKLAYER SEWER recommends temporary nonoral feeds at this time. * Altered nutrition related lab values r/t diabetes, CHF, clinical condition as evidenced by elev BGs (192, 242), A1C of 7.2, elev BNP (1173), low phos (2.0), low K (3.3), elev T bili (5.7). CURRENT DIET:now NPO PO DIET RECOMMENDATIONS: WHEN SAFE FOR ORAL DIET -> CCHO MED, LOW NA/ texture per BRICKLAYER SEWER ENTERAL NUTRITION RECOMMENDATIONS: Glucerna 1.5 @50ml/hr x 24 hrs to provide 1200ml, 1800kcal, 99g prot, 911ml free water * W/ GI access, initiate Glucerna 1.5 @ 20ml/hr x 6 hrs * Advance 10ml q 4-6 hrs as tolerated to goal rate * HOB Over 30 degrees/ water flush per MD. ADDITIONAL RECOMMENDATIONS: * Calibrated bed scale wt * Monitor BGs closely, need for long acting insulin * Monitor lytes closely, replete as needed (low K and phos) * Monitor for ability for oral diet: NGT ordered at this time * Monitor liver fxn and renal fxn-> both improving at this time Addendum: 12/07/19 at [address] NOTE: "DID NOT TOLERATE 12 THAI NGT INSERTION AND HIS DTR WANTS HIM TO HAVE SOME PO FOR QUALITY OF LIFE. WILL HOLD OFF ON NGT FOR NOW."
[2019-12-07 16:00] VITALS: BP 115/57
--- NOTE | 2019-12-07 16:11 | NUR ---
BUILDING STONECUTTERSPECIMEN PREPARATION ASSISTANT SI: PNA T. 100.0 HR 111 RR 26 B/P 105/60 NC 3L O2 SAT @ 98% WBC 15.2 NA 147 K 3.3 BUN 33 CR 1.9 BNP 1173 IS: K-PHOS IV IVF NS @ 50ML/HR ZOSYN IV STEP DOWN STATUS
--- NOTE | 2019-12-07 19:10 | NUR ---
NURSE NOTES: Pt report received from NELIA BERUMEN. MANDI. pt remains stable. pt is alert and oriented times 1. pt is on Nasal Canula showing 99% O2 sat, no resp distress. pt is on panel monitor showing NSR, no cardiac distress noted. pt bed is low, locked, armed, bed rails up times 3, call light within reach will follow plan of care.
--- NOTE | 2019-12-07 19:21 | NUR ---
NURSE NOTES: report given to lexi malhotra
[2019-12-07 20:00] VITALS: BP 109/51
[2019-12-07] MEDS: Tamsulosin 0.4mg cap ORAL SCH (20:24)
--- NOTE | 2019-12-07 21:04 | General Progress Note ---
Assessment/Plan Problem List: (1) Sepsis ICD Codes: A41.9 - Sepsis, unspecified organism SNOMED: 98706116 Qualifiers: Qualified Codes: A41.9 - Sepsis, unspecified organism; R65.20 - Severe sepsis without septic shock; N17.9 - Acute kidney failure, unspecified (2) Alzheimer's dementia ICD Codes: G30.9 - Alzheimer's disease, unspecified; F02.80 - Dementia in other diseases classified elsewhere without behavioral disturbance SNOMED: 54660876 Qualifiers: Qualified Codes: G30.9 - Alzheimer's disease, unspecified; F02.80 - Dementia in other diseases classified elsewhere without behavioral disturbance (3) Elevated LFTs ICD Codes: R94.5 - Abnormal results of liver function studies SNOMED: 982808278, 846983801 (4) Cholestasis ICD Codes: K83.1 - Obstruction of bile duct SNOMED: 52605859 (5) Hyperbilirubinemia ICD Codes: E80.6 - Other disorders of bilirubin metabolism SNOMED: 42720481 (6) Left lower lobe pneumonia ICD Codes: J18.9 - Pneumonia, unspecified organism SNOMED: 365520675 Qualifiers: Qualified Codes: J18.9 - Pneumonia, unspecified organism (7) Renal failure (ARF), acute on chronic ICD Codes: N17.9 - Acute kidney failure, unspecified; N18.9 - Chronic kidney disease, unspecified SNOMED: 241535793 Qualifiers: Qualified Codes: N17.9 - Acute kidney failure, unspecified; N18.3 - Chronic kidney disease, stage 3 (moderate) Status: progressing, unchanged Assessment/Plan: low k still elevated lft pna sepsis abx per id confused reviewed chart and labs dm.elevated sugar stable cr Subjective ROS Limited/Unobtainable: Yes Allergies: Coded Allergies: No Known Allergies (Unverified , 03/19/17) Objective Last 24 Hour Vital Signs Date Time Temp Pulse Resp B/P (MAP) Pulse Ox O2 Delivery O2 Flow Rate FiO2 12/07/19 16:00 Nasal Cannula 3.0 12/07/19 16:00 98.4 96 25 115/57 (76) 97 12/07/19 15:28 100 12/07/19 13:14 100 113/63 12/07/19 12:14 100 22 97 Nasal Cannula 3.0 32 102 20 95 12/07/19 12:00 Nasal Cannula 3.0 12/07/19 12:00 97.9 106 24 113/63 (80) 97 12/07/19 11:47 102 12/07/19 08:00 Nasal Cannula 3.0 12/07/19 08:00 100.0 111 26 105/60 (75) 96 12/07/19 07:44 107 12/07/19 07:00 102 22 96 Nasal Cannula 3.0 32 12/07/19 06:07 110 121/60 12/07/19 04:00 98.9 113 20 116/57 (76) 96 12/07/19 04:00 Nasal Cannula 3.0 12/07/19 04:00 115 12/07/19 00:42 107 12/07/19 00:00 97.9 108 22 113/58 (76) 96 12/07/19 00:00 Nasal Cannula 3.0 12/06/19 22:00 110 103/48 Intake and Output 12/06/19 12/07/19 19:00 07:00 Intake Total 385.0 ml 770.0 ml Output Total 150 ml 600 ml Balance 235.0 ml 170.0 ml Intake Oral 100 ml 60 ml IV Total 285.0 ml 710.0 ml Output Urine Total 150 ml 600 ml # Voids 2 1 # Bowel Movements 2 Laboratory Tests 12/07/19 01:00: Cortisol AM Sample 17.9 12/07/19 04:30: White Blood Count 15.2H, Red Blood Count 4.16L, Hemoglobin 13.0L, Hematocrit 38.2L, Mean Corpuscular Volume 92, Mean Corpuscular Hemoglobin 31.3H, Mean Corpuscular Hemoglobin Concent 34.1, Red Cell Distribution Width 12.3, Platelet Count 150, Mean Platelet Volume 7.0, Neutrophils (%) (Auto) , Lymphocytes (%) ( Auto) , Monocytes (%) (Auto) , Eosinophils (%) (Auto) , Basophils (%) (Auto) , Differential Total Cells Counted 100, Neutrophils % (Manual) 93H, Lymphocytes % (Manual) 4L, Monocytes % (Manual) 3, Eosinophils % (Manual) 0, Basophils % ( Manual) 0, Band Neutrophils 0, Platelet Estimate Adequate, Platelet Morphology Normal, Red Blood Cell Morphology Normal, Sodium Level 147H, Potassium Level 3.3L, Chloride Level 113H, Carbon Dioxide Level 27, Anion Gap 7, Blood Urea Nitrogen 33H, Creatinine 1.9H, Estimat Glomerular Filtration Rate , Glucose Level 192H, Hemoglobin A1c 7.2H, Uric Acid 4.2, Calcium Level 8.2L, Phosphorus Level 2.0L, Magnesium Level 1.8, Iron Level 6L, Total Iron Binding Capacity 152L , Percent Iron Saturation 4L, Unsaturated Iron Binding 146, Ferritin 274, Total Bilirubin 5.7H, Direct Bilirubin 5.0H, Gamma Glutamyl Transpeptidase 130H, Aspartate Amino Transf (AST/SGOT) 45H, Alanine Aminotransferase (ALT/SGPT) 52, Alkaline Phosphatase 244H, Troponin I 0.000, C-Reactive Protein, Quantitative 41.2H, Pro-B-Type Natriuretic Peptide 1173H, Total Protein 6.4, Albumin 1.9L, Globulin 4.5, Albumin/Globulin Ratio 0.4L, Triglycerides Level 80, Cholesterol Level 73, LDL Cholesterol 40, HDL Cholesterol 13L, Cholesterol/HDL Ratio 5.6H, Vitamin B12 Level 227, Folate 9.0, Thyroid Stimulating Hormone (TSH) 0.183L Height (Feet): 5 Height (Inches): 6.00 Weight (Pounds): 174 General Appearance: confused Respiratory/Chest: normal breath sounds Abdomen: soft Gurmeet Elizabeth MD Dec 07, 2019 21:04
[2019-12-08] VITALS: BP 101/51
[2019-12-08 04:00] VITALS: BP 104/45
[2019-12-08 05:51] LABS: INR 1.1 (0.9-1.1)
[2019-12-08 05:54] LABS: HEMATOCRIT 37.3 % (42.0-52.0); HEMOGLOBIN 12.6 G/DL (14.2-18.0); MEAN CORPUSCULAR VOLUME 92 FL (80-99); PLATELET COUNT 141 K/UL (150-450); RED BLOOD COUNT 4.05 M/UL (4.70-6.10); RED CELL DISTRIBUTION WIDTH 12.7 % (11.6-14.8); WHITE BLOOD COUNT 16.7 K/UL (4.8-10.8)
[2019-12-08] MEDS: dilTIAZem HCl 30mg tab ORAL SCH ×3 (05:54→21:05)
[2019-12-08] MEDS: Piperacillin/Tazobactam 3.375 GM in NS 110 ML IVPB SCH ×3 (05:54→21:05)
[2019-12-08] MEDS: NovoLOG Insulin Flexpen SUBQ SCH ×4 (06:00→20:31)
[2019-12-08 06:42] LABS: ALANINE AMINOTRANSFERASE 36 U/L (12-78); ALBUMIN 1.7 G/DL (3.4-5.0); ALBUMIN/GLOBULIN RATIO 0.4 (1.0-2.7); ALKALINE PHOSPHATASE 214 U/L (46-116); ANION GAP 11 mmol/L (5-15); ASPARTATE AMINO TRANSFERASE 38 U/L (15-37); BILIRUBIN,TOTAL 7.2 MG/DL (0.2-1.0); BLOOD UREA NITROGEN 41 mg/dL (7-18); CALCIUM 8.3 MG/DL (8.5-10.1); CARBON DIOXIDE 26 MMOL/L (21-32); CHLORIDE 114 MMOL/L (98-107); PHOSPHORUS 3.3 MG/DL (2.5-4.9); POTASSIUM 3.2 MMOL/L (3.5-5.1); SODIUM 150 MMOL/L (136-145)
[2019-12-08 06:49] LABS: AMYLASE 86 U/L (25-115)
[2019-12-08 07:04] LABS: BILIRUBIN,DIRECT 6.2 MG/DL (0.0-0.3)
--- NOTE | 2019-12-08 07:18 | NUR ---
NURSE NOTES: RECE,D BED SIDE REPORT FROM EDWIN [employer] SOFTWARE ARCHITECT OF [employer] PROJECT MANAGER. RECEIVED PT WITH HOD ELEVATED 45 DEGREE AWAKE AND ALERT [place] SPEAKING ONLY ,DENIES CP OR SOB AT THIS TIME.PT USING O2 @ 3l/mints via n/c o2 sat 97% noted at this time.FULL BODY ASSESSMENT DONE.PT REPOSITIONED IN BED TO PROVIDE COMFORT AND TO PREVENT FURTHER SKIN BREAK DOWN.PT IS NPO ON SCHEDULE FOR ST EVAL AT BED SIDE THIS AM. WILL CONT TO MONITOR.
--- NOTE | 2019-12-08 07:28 | NUR ---
HAND-OFF: Report given to RAMIREZ BERUMEN. pt reamins stable.
[2019-12-08 08:00] VITALS: BP 103/54
--- NOTE | 2019-12-08 09:14 | Pulmonology Progress Note ---
Assessment/Plan Assessment/Plan IMPRESSION: 1. Left lower lobe pneumonia. Reviewed CXR with radiology; no definite pneumonia seen. 2. Sepsis with lactic acidemia. 3. Acute renal insufficiency. 4. History of CHF. 5. Dementia. 6. Jaundice; has intra-abdominal/biliary issue; GI and surgery following DISCUSSION: Fluid resuscitation. Continue broad-spectrum antibiotics. I will follow carefully as respiratory microsoft infrastructure consultant. GI/surgery following Kevin Lincoln M.D. Subjective Interval Events: GI and surgery notes reviewed Constitutional: Reports: no symptoms HEENT: Repors: no symptoms Respiratory: Reports: no symptoms Cardiovascular: Reports: no symptoms Gastrointestinal/Abdominal: Reports: no symptoms Allergies: Coded Allergies: No Known Allergies (Unverified , 03/19/17) Objective Last 24 Hour Vital Signs Date Time Temp Pulse Resp B/P (MAP) Pulse Ox O2 Delivery O2 Flow Rate FiO2 12/08/19 09:04 95 19 94 Nasal Cannula 3.0 32 12/08/19 05:54 106 107/51 12/08/19 04:00 99 12/08/19 04:00 99.0 103 21 104/45 (64) 99 12/08/19 04:00 Nasal Cannula 3.0 12/08/19 00:00 104 12/08/19 00:00 Nasal Cannula 3.0 12/08/19 00:00 99.0 104 22 101/51 (68) 99 12/07/19 21:29 106 118/60 12/07/19 20:00 99.6 94 23 109/51 (70) 98 12/07/19 20:00 93 12/07/19 20:00 Nasal Cannula 3.0 12/07/19 16:00 Nasal Cannula 3.0 12/07/19 16:00 98.4 96 25 115/57 (76) 97 12/07/19 15:28 100 12/07/19 13:14 100 113/63 12/07/19 12:14 100 22 97 Nasal Cannula 3.0 32 102 20 95 12/07/19 12:00 Nasal Cannula 3.0 12/07/19 12:00 97.9 106 24 113/63 (80) 97 12/07/19 11:47 102 Intake and Output 12/07/19 12/08/19 19:00 07:00 Intake Total 800.2772 ml 560.0 ml Output Total 200 ml 600 ml Balance 600.2772 ml -40.0 ml Intake Oral 120 ml IV Total 680.2772 ml 560.0 ml Output Urine Total 200 ml 600 ml # Voids 2 General Appearance: no acute distress HEENT: normocephalic Respiratory/Chest: chest wall non-tender, lungs clear Cardiovascular: normal peripheral pulses Abdomen: soft, non tender Microbiology Date/Time Source Procedure Growth Status 12/05/19 17:40 Blood Blood Culture - Preliminary NO GROWTH AFTER 48 HOURS Resulted 12/05/19 17:30 Blood Blood Culture - Preliminary NO GROWTH AFTER 48 HOURS Resulted 12/05/19 18:30 Nasal Nares Left MRSA Culture - Final NO METHICILLIN RESISTANT STAPH AUREUS... Complete 12/05/19 17:40 Nasal Nares - Final Complete 12/05/19 17:40 Nasal Nares - Final Complete 12/05/19 18:40 Urine,Clean Catch Urine Culture - Preliminary Proteus Mirabilis Resulted 12/05/19 18:30 Rectum - Final NO CARBAPENEM-RESISTANT ENTEROBACTERI... Complete 12/05/19 18:30 Rectum VRE Culture - Final Enterococcus Faecium - Vre Complete Laboratory Tests 12/08/19 04:30: White Blood Count 16.7H, Red Blood Count 4.05L, Hemoglobin 12.6L, Hematocrit 37.3L, Mean Corpuscular Volume 92, Mean Corpuscular Hemoglobin 31.1H, Mean Corpuscular Hemoglobin Concent 33.7, Red Cell Distribution Width 12.7, Platelet Count 141L, Mean Platelet Volume 6.9, Neutrophils (%) (Auto) , Lymphocytes (%) ( Auto) , Monocytes (%) (Auto) , Eosinophils (%) (Auto) , Basophils (%) (Auto) , Neutrophils % (Manual) [Pending], Lymphocytes % (Manual) [Pending], Platelet Estimate [Pending], Platelet Morphology [Pending], Erythrocyte Sedimentation Rate [Pending], Prothrombin Time 12.0H, Prothromb Time International Ratio 1.1, Activated Partial Thromboplast Time 32, Sodium Level 150H, Potassium Level 3.2L , Chloride Level 114H, Carbon Dioxide Level 26, Anion Gap 11, Blood Urea Nitrogen 41H, Creatinine 2.0H, Estimat Glomerular Filtration Rate , Glucose Level 159H, Lactic Acid Level 1.50, Uric Acid 3.7, Calcium Level 8.3L, Phosphorus Level 3.3, Magnesium Level 1.9, Total Bilirubin 7.2H, Direct Bilirubin 6.2H, Aspartate Amino Transf (AST/SGOT) 38H, Alanine Aminotransferase (ALT/SGPT) 36, Alkaline Phosphatase 214H, C-Reactive Protein, Quantitative 45.7H , Pro-B-Type Natriuretic Peptide 1227H, Total Protein 6.2L, Albumin 1.7L, Globulin 4.5, Albumin/Globulin Ratio 0.4L, Amylase Level 86, Lipase 272 Current Medications Medications (Trade) Dose Ordered Sig/Filemon Route PRN Reason Start Time Stop Time Status Last Admin Dose Admin Acetaminophen (Tylenol) 325 mg Q6H PRN ORAL Mild Pain/Temp > 100.5 12/07/19 09:30 01/06/20 09:29 Albuterol/ Ipratropium (Albuterol/ Ipratropium) 3 ml Q4H PRN HHN Shortness of Breath 12/05/19 23:15 12/10/19 23:14 12/07/19 12:02 Barium Sulfate (Varibar Honey) 250 ml NOW PRN RAD 12/07/19 14:45 12/10/19 14:35 Barium Sulfate (Varibar [place]) 240 ml NOW PRN RAD 12/07/19 14:45 12/10/19 14:35 Barium Sulfate (Varibar Pudding) 230 ml NOW PRN RAD 12/07/19 14:45 12/10/19 14:35 Dextrose (Dextrose 50%) 25 ml Q30M PRN IV Hypoglycemia 12/06/19 11:45 01/05/20 11:44 Dextrose (Dextrose 50%) 50 ml Q30M PRN IV Hypoglycemia 12/06/19 11:45 01/05/20 11:44 Diltiazem HCl (Cardizem) 30 mg EVERY 8 HOURS ORAL 12/06/19 14:00 01/05/20 13:59 12/08/19 05:54 Docusate Sodium (Colace) 100 mg TWICE A DAY ORAL 12/06/19 18:00 01/05/20 17:59 12/07/19 08:05 Insulin Aspart (NovoLOG) BEFORE MEALS AND HS SUBQ 12/06/19 16:30 01/05/20 16:29 12/07/19 16:45 Pantoprazole (Protonix) 40 mg DAILY ORAL 12/06/19 14:45 01/05/20 14:44 12/07/19 08:05 Piperacillin Sod/ Tazobactam Sod 3.375 gm/Sodium Chloride 110 ml @ 27.5 mls/hr EVERY 8 HOURS IVPB 12/06/19 14:00 12/11/19 13:59 12/08/19 05:54 Potassium Chloride 100 ml @ 100 mls/hr Q1HR IVPB 12/08/19 10:00 12/08/19 12:59 Risperidone (RisperDAL) 0.5 mg Q12HR ORAL 12/06/19 09:00 01/05/20 08:59 12/07/19 20:25 Sodium Chloride 1,000 ml @ 50 mls/hr Q20H IV 12/06/19 14:45 01/05/20 14:44 12/08/19 05:55 Tamsulosin HCl (Flomax) 0.4 mg BEDTIME ORAL 12/06/19 21:00 01/05/20 20:59 12/07/19 20:24 Kevin Lincoln MD Dec 08, 2019 09:14
[2019-12-08] MEDS: Docusate 100mg cap ORAL SCH ×2 (09:36→19:08)
--- NOTE | 2019-12-08 10:15 | NUR ---
NURSE NOTES:WOUND CARE NOTES:Pt presented on admission with Non-blanching erythema sacraum with surrounding darker skin tone R and L Gluteus. R heel is maroon and boggy with marginal erythema.(L)5cm x (W)6cm. L heel is dry firm and blanchable. NO other skin concerns noted. Tx.Plan: Apply Moisture Barrier Paste to buttocks. Cover Sacrum with Optifoam drsg. Change every 3 days and prn. Apply Cavilon Skin Barrier to Both heels. Cover each heel with Optifoam drsg. Change every 7 days and prn. Reposition at least every 2hours or as tolerated. Off-load heels with pillow.
--- NOTE | 2019-12-08 11:45 | General Progress Note ---
Assessment/Plan Status: progressing, unchanged Assessment/Plan: Problems: (1) Elevated LFTs ICD Codes: R94.5 - Abnormal results of liver function studies SNOMED: 386030977, 927326149 (2) Biliary obstruction ICD Codes: K83.1 - Obstruction of bile duct SNOMED: 457569512 (3) Cholestasis ICD Codes: K83.1 - Obstruction of bile duct SNOMED: 29606895 (4) Hyperbilirubinemia ICD Codes: E80.6 - Other disorders of bilirubin metabolism Assessment/Plan This is a 89-year-old male patient that presented with hyperbilirubinemia with no transaminitis 2/2 to cholestasis vs biliary obstruction. abdominal US reviewed hepatitis panel negative GGT elevation MRCP ? cholestasis due to sepsis repeat labs fu MRCP neg hepatitis panel pending swallow eval Avoid hepatotoxic's Repeat liver function test for tomorrow We will follow along on a daily basis with any additional recommendations Subjective ROS Limited/Unobtainable: No Allergies: Coded Allergies: No Known Allergies (Unverified , 03/19/17) Objective Last 24 Hour Vital Signs Date Time Temp Pulse Resp B/P (MAP) Pulse Ox O2 Delivery O2 Flow Rate FiO2 12/08/19 09:04 95 19 94 Nasal Cannula 3.0 32 12/08/19 08:00 Nasal Cannula 3.0 12/08/19 08:00 102 12/08/19 08:00 97.9 100 22 103/54 (70) 94 12/08/19 05:54 106 107/51 12/08/19 04:00 99 12/08/19 04:00 99.0 103 21 104/45 (64) 99 12/08/19 04:00 Nasal Cannula 3.0 12/08/19 00:00 104 12/08/19 00:00 Nasal Cannula 3.0 12/08/19 00:00 99.0 104 22 101/51 (68) 99 12/07/19 21:29 106 118/60 12/07/19 20:00 99.6 94 23 109/51 (70) 98 12/07/19 20:00 93 12/07/19 20:00 Nasal Cannula 3.0 12/07/19 16:00 Nasal Cannula 3.0 12/07/19 16:00 98.4 96 25 115/57 (76) 97 1/28/20 15:28 100 12/07/19 13:14 100 113/63 12/07/19 12:14 100 22 97 Nasal Cannula 3.0 32 102 20 95 12/07/19 12:00 Nasal Cannula 3.0 12/07/19 12:00 97.9 106 24 113/63 (80) 97 12/07/19 11:47 102 Intake and Output 12/07/19 12/08/19 19:00 07:00 Intake Total 800.2772 ml 560.0 ml Output Total 200 ml 600 ml Balance 600.2772 ml -40.0 ml Intake Oral 120 ml IV Total 680.2772 ml 560.0 ml Output Urine Total 200 ml 600 ml # Voids 2 Laboratory Tests 12/08/19 04:30: White Blood Count 16.7H, Red Blood Count 4.05L, Hemoglobin 12.6L, Hematocrit 37.3L, Mean Corpuscular Volume 92, Mean Corpuscular Hemoglobin 31.1H, Mean Corpuscular Hemoglobin Concent 33.7, Red Cell Distribution Width 12.7, Platelet Count 141L, Mean Platelet Volume 6.9, Neutrophils (%) (Auto) , Lymphocytes (%) ( Auto) , Monocytes (%) (Auto) , Eosinophils (%) (Auto) , Basophils (%) (Auto) , Differential Total Cells Counted 100, Neutrophils % (Manual) 88H, Lymphocytes % (Manual) 8L, Monocytes % (Manual) 4, Eosinophils % (Manual) 0, Basophils % ( Manual) 0, Band Neutrophils 0, Platelet Estimate DecreasedL, Platelet Morphology Normal, Red Blood Cell Morphology Normal, Erythrocyte Sedimentation Rate 84H, Prothrombin Time 12.0H, Prothromb Time International Ratio 1.1, Activated Partial Thromboplast Time 32, Sodium Level 150H, Potassium Level 3.2L , Chloride Level 114H, Carbon Dioxide Level 26, Anion Gap 11, Blood Urea Nitrogen 41H, Creatinine 2.0H, Estimat Glomerular Filtration Rate , Glucose Level 159H, Lactic Acid Level 1.50, Uric Acid 3.7, Calcium Level 8.3L, Phosphorus Level 3.3, Magnesium Level 1.9, Total Bilirubin 7.2H, Direct Bilirubin 6.2H, Aspartate Amino Transf (AST/SGOT) 38H, Alanine Aminotransferase (ALT/SGPT) 36, Alkaline Phosphatase 214H, C-Reactive Protein, Quantitative 45.7H , Pro-B-Type Natriuretic Peptide 1227H, Total Protein 6.2L, Albumin 1.7L, Globulin 4.5, Albumin/Globulin Ratio 0.4L, Amylase Level 86, Lipase 272 Height (Feet): 5 Height (Inches): 6.00 Weight (Pounds): 159 General Appearance: lethargic EENT: normal ENT inspection Neck: supple Cardiovascular: normal rate Respiratory/Chest: decreased breath sounds Abdomen: normal bowel sounds, non tender, soft Extremities: non-tender Bladimir Escalante MD Dec 08, 2019 11:45
[2019-12-08 12:00] VITALS: BP 105/77
--- NOTE | 2019-12-08 13:01 | Infectious Diseases Prog Note ---
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 Hypernatremia RECOMMENDATION: We will continue with Zosyn We will follow up the cultures & MRCP Subjective ROS Limited/Unobtainable: Yes Constitutional: Denies: fever Allergies: Coded Allergies: No Known Allergies (Unverified , 03/19/17) Objective Vital Signs Last 24 Hour Vital Signs Date Time Temp Pulse Resp B/P (MAP) Pulse Ox O2 Delivery O2 Flow Rate FiO2 12/08/19 12:00 Nasal Cannula 3.0 12/08/19 09:04 95 19 94 Nasal Cannula 3.0 32 12/08/19 08:00 Nasal Cannula 3.0 12/08/19 08:00 102 12/08/19 08:00 97.9 100 22 103/54 (70) 94 12/08/19 05:54 106 107/51 12/08/19 04:00 99 12/08/19 04:00 99.0 103 21 104/45 (64) 99 12/08/19 04:00 Nasal Cannula 3.0 12/08/19 00:00 104 12/08/19 00:00 Nasal Cannula 3.0 12/08/19 00:00 99.0 104 22 101/51 (68) 99 12/07/19 21:29 106 118/60 12/07/19 20:00 99.6 94 23 109/51 (70) 98 12/07/19 20:00 93 12/07/19 20:00 Nasal Cannula 3.0 12/07/19 16:00 Nasal Cannula 3.0 12/07/19 16:00 98.4 96 25 115/57 (76) 97 12/07/19 15:28 100 12/07/19 13:14 100 113/63 Height (Feet): 5 Height (Inches): 6.00 Weight (Pounds): 159 General Appearance: no acute distress HEENT: other - dry mouth Respiratory/Chest: lungs clear, other - oxygen by nasal cannula Cardiovascular: normal rate Abdomen: soft, non tender Extremities: no edema Neurologic/Psychiatric: other - sleeping Microbiology Date/Time Source Procedure Growth Status 12/05/19 17:40 Blood Blood Culture - Preliminary NO GROWTH AFTER 48 HOURS Resulted 12/05/19 17:30 Blood Blood Culture - Preliminary NO GROWTH AFTER 48 HOURS Resulted 12/05/19 18:30 Nasal Nares Left MRSA Culture - Final NO METHICILLIN RESISTANT STAPH AUREUS... Complete 12/05/19 17:40 Nasal Nares - Final Complete 12/05/19 17:40 Nasal Nares - Final Complete 12/05/19 18:40 Urine,Clean Catch Urine Culture - Preliminary Proteus Mirabilis Resulted 12/05/19 18:30 Rectum - Final NO CARBAPENEM-RESISTANT ENTEROBACTERI... Complete 12/05/19 18:30 Rectum VRE Culture - Final Enterococcus Faecium - Vre Complete Laboratory Tests Test 12/08/19 04:30 White Blood Count 16.7 K/UL (4.8-10.8) H Red Blood Count 4.05 M/UL (4.70-6.10) L Hemoglobin 12.6 G/DL (14.2-18.0) L Hematocrit 37.3 % (42.0-52.0) L Mean Corpuscular Volume 92 FL (80-99) Mean Corpuscular Hemoglobin 31.1 PG (27.0-31.0) H Mean Corpuscular Hemoglobin Concent 33.7 G/DL (32.0-36.0) Red Cell Distribution Width 12.7 % (11.6-14.8) Platelet Count 141 K/UL (150-450) L Mean Platelet Volume 6.9 FL (6.5-10.1) Neutrophils (%) (Auto) % (45.0-75.0) Lymphocytes (%) (Auto) % (20.0-45.0) Monocytes (%) (Auto) % (1.0-10.0) Eosinophils (%) (Auto) % (0.0-3.0) Basophils (%) (Auto) % (0.0-2.0) Differential Total Cells Counted 100 Neutrophils % (Manual) 88 % (45-75) H Lymphocytes % (Manual) 8 % (20-45) L Monocytes % (Manual) 4 % (1-10) Eosinophils % (Manual) 0 % (0-3) Basophils % (Manual) 0 % (0-2) Band Neutrophils 0 % (0-8) Platelet Estimate Decreased L Platelet Morphology Normal Red Blood Cell Morphology Normal Erythrocyte Sedimentation Rate 84 MM/HR (0-20) H Prothrombin Time 12.0 SEC (9.30-11.50) H Prothromb Time International Ratio 1.1 (0.9-1.1) Activated Partial Thromboplast Time 32 SEC (23-33) Sodium Level 150 MMOL/L (136-145) H Potassium Level 3.2 MMOL/L (3.5-5.1) L Chloride Level 114 MMOL/L (98-107) H Carbon Dioxide Level 26 MMOL/L (21-32) Anion Gap 11 mmol/L (5-15) Blood Urea Nitrogen 41 mg/dL (7-18) H Creatinine 2.0 MG/DL (0.55-1.30) H Estimat Glomerular Filtration Rate mL/min (>60) Glucose Level 159 MG/DL (74-106) H Lactic Acid Level 1.50 mmol/L (0.4-2.0) Uric Acid 3.7 MG/DL (2.6-7.2) Calcium Level 8.3 MG/DL (8.5-10.1) L Phosphorus Level 3.3 MG/DL (2.5-4.9) Magnesium Level 1.9 MG/DL (1.8-2.4) Total Bilirubin 7.2 MG/DL (0.2-1.0) H Direct Bilirubin 6.2 MG/DL (0.0-0.3) H Aspartate Amino Transf (AST/SGOT) 38 U/L (15-37) H Alanine Aminotransferase (ALT/SGPT) 36 U/L (12-78) Alkaline Phosphatase 214 U/L (46-116) H C-Reactive Protein, Quantitative 45.7 mg/dL (0.00-0.90) H Pro-B-Type Natriuretic Peptide 1227 pg/mL (0-125) H Total Protein 6.2 G/DL (6.4-8.2) L Albumin 1.7 G/DL (3.4-5.0) L Globulin 4.5 g/dL Albumin/Globulin Ratio 0.4 (1.0-2.7) L Amylase Level 86 U/L (25-115) Lipase 272 U/L (73-393) Current Medications Medications (Trade) Dose Ordered Sig/Filemon Route PRN Reason Start Time Stop Time Status Last Admin Dose Admin Acetaminophen (Tylenol) 325 mg Q6H PRN ORAL Mild Pain/Temp > 100.5 12/07/19 09:30 01/06/20 09:29 Albuterol/ Ipratropium (Albuterol/ Ipratropium) 3 ml Q4H PRN HHN Shortness of Breath 12/05/19 23:15 12/10/19 23:14 12/07/19 12:02 Barium Sulfate (Varibar Honey) 250 ml NOW PRN MC RAD 12/07/19 14:45 12/10/19 14:35 Barium Sulfate (Varibar [place]) 240 ml NOW PRN MC RAD 12/07/19 14:45 12/10/19 14:35 Barium Sulfate (Varibar Pudding) 230 ml NOW PRN MC RAD 12/07/19 14:45 12/10/19 14:35 Dextrose (Dextrose 50%) 25 ml Q30M PRN IV Hypoglycemia 12/06/19 11:45 01/05/20 11:44 Dextrose (Dextrose 50%) 50 ml Q30M PRN IV Hypoglycemia 12/06/19 11:45 01/05/20 11:44 Diltiazem HCl (Cardizem) 30 mg EVERY 8 HOURS ORAL 12/06/19 14:00 01/05/20 13:59 12/08/19 05:54 Docusate Sodium (Colace) 100 mg TWICE A DAY ORAL 12/06/19 18:00 01/05/20 17:59 12/08/19 09:36 Insulin Aspart (NovoLOG) BEFORE MEALS AND HS SUBQ 12/06/19 16:30 01/05/20 16:29 12/08/19 12:33 Pantoprazole (Protonix) 40 mg DAILY ORAL 12/06/19 14:45 01/05/20 14:44 12/08/19 09:36 Piperacillin Sod/ Tazobactam Sod 3.375 gm/Sodium Chloride 110 ml @ 27.5 mls/hr EVERY 8 HOURS IVPB 12/06/19 14:00 12/11/19 13:59 12/08/19 05:54 Potassium Chloride 100 ml @ 100 mls/hr Q1HR IVPB 12/08/19 10:00 12/08/19 12:59 12/08/19 12:17 Risperidone (RisperDAL) 0.5 mg Q12HR ORAL 12/06/19 09:00 01/05/20 08:59 12/08/19 09:36 Sodium Chloride 1,000 ml @ 50 mls/hr Q20H IV 12/06/19 14:45 01/05/20 14:44 12/08/19 05:55 Tamsulosin HCl (Flomax) 0.4 mg BEDTIME ORAL 12/06/19 21:00 01/05/20 20:59 12/07/19 20:24 Enrike Hadley MD Dec 08, 2019 13:01
--- NOTE | 2019-12-08 13:43 | Nephrology Progress Note ---
Assessment/Plan Problem List: (1) Renal failure (ARF), acute on chronic (2) Alzheimer's dementia (3) Sepsis (4) UTI (urinary tract infection) Assessment Acute on Chronic renal failure- CHF- Past echo 55% EjFx Sepsis, High Lactate- Leukocytosis Left lower lobe pneumonia Alzheimer's dementia UTI (urinary tract infection) Hyperglycemia, DM II Plan 2D echo noted KCL IV slow hydrate monitor renal parameters correct electrolytes BP and BS in check per orders Subjective ROS Limited/Unobtainable: No Constitutional: Reports: malaise, weakness Objective Objective Last 24 Hour Vital Signs Date Time Temp Pulse Resp B/P (MAP) Pulse Ox O2 Delivery O2 Flow Rate FiO2 12/08/19 12:00 Nasal Cannula 3.0 12/08/19 09:04 95 19 94 Nasal Cannula 3.0 32 12/08/19 08:00 Nasal Cannula 3.0 12/08/19 08:00 102 12/08/19 08:00 97.9 100 22 103/54 (70) 94 12/08/19 05:54 106 107/51 12/08/19 04:00 99 12/08/19 04:00 99.0 103 21 104/45 (64) 99 12/08/19 04:00 Nasal Cannula 3.0 12/08/19 00:00 104 12/08/19 00:00 Nasal Cannula 3.0 12/08/19 00:00 99.0 104 22 101/51 (68) 99 12/07/19 21:29 106 118/60 12/07/19 20:00 99.6 94 23 109/51 (70) 98 12/07/19 20:00 93 12/07/19 20:00 Nasal Cannula 3.0 12/07/19 16:00 Nasal Cannula 3.0 12/07/19 16:00 98.4 96 25 115/57 (76) 97 12/07/19 15:28 100 Intake and Output 12/07/19 12/08/19 19:00 07:00 Intake Total 800.2772 ml 560.0 ml Output Total 200 ml 600 ml Balance 600.2772 ml -40.0 ml Intake Oral 120 ml IV Total 680.2772 ml 560.0 ml Output Urine Total 200 ml 600 ml # Voids 2 Laboratory Tests 12/08/19 04:30: White Blood Count 16.7H, Red Blood Count 4.05L, Hemoglobin 12.6L, Hematocrit 37.3L, Mean Corpuscular Volume 92, Mean Corpuscular Hemoglobin 31.1H, Mean Corpuscular Hemoglobin Concent 33.7, Red Cell Distribution Width 12.7, Platelet Count 141L, Mean Platelet Volume 6.9, Neutrophils (%) (Auto) , Lymphocytes (%) ( Auto) , Monocytes (%) (Auto) , Eosinophils (%) (Auto) , Basophils (%) (Auto) , Differential Total Cells Counted 100, Neutrophils % (Manual) 88H, Lymphocytes % (Manual) 8L, Monocytes % (Manual) 4, Eosinophils % (Manual) 0, Basophils % ( Manual) 0, Band Neutrophils 0, Platelet Estimate DecreasedL, Platelet Morphology Normal, Red Blood Cell Morphology Normal, Erythrocyte Sedimentation Rate 84H, Prothrombin Time 12.0H, Prothromb Time International Ratio 1.1, Activated Partial Thromboplast Time 32, Sodium Level 150H, Potassium Level 3.2L , Chloride Level 114H, Carbon Dioxide Level 26, Anion Gap 11, Blood Urea Nitrogen 41H, Creatinine 2.0H, Estimat Glomerular Filtration Rate , Glucose Level 159H, Lactic Acid Level 1.50, Uric Acid 3.7, Calcium Level 8.3L, Phosphorus Level 3.3, Magnesium Level 1.9, Total Bilirubin 7.2H, Direct Bilirubin 6.2H, Aspartate Amino Transf (AST/SGOT) 38H, Alanine Aminotransferase (ALT/SGPT) 36, Alkaline Phosphatase 214H, C-Reactive Protein, Quantitative 45.7H , Pro-B-Type Natriuretic Peptide 1227H, Total Protein 6.2L, Albumin 1.7L, Globulin 4.5, Albumin/Globulin Ratio 0.4L, Amylase Level 86, Lipase 272 Height (Feet): 5 Height (Inches): 6.00 Weight (Pounds): 159 General Appearance: no apparent distress Cardiovascular: tachycardia Respiratory/Chest: decreased breath sounds Abdomen: distended Jose Ashraf MD Dec 08, 2019 13:43
--- NOTE | 2019-12-08 14:11 | NUR ---
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 97.9 HR 106 RR 22 B/P 103/54 3L NC O2 SAT @ 98% WBC 16.7 ESR 84 NA 150 K 3.2 BUN 41 CR 2.0 AST 38 ALK PHOS 204 BNP 1227 IS: IVF NS @ 50ML/HR ZOSYN IV KCL IV STEP DOWN STATUS
--- NOTE | 2019-12-08 14:26 | NUR ---
ST NOTES: SWALLOW STATUS: PATIENT UNABLE TO HAVE MODIFIED BARIUM SWALLOW STUDY AND PATIENT'S DTR WANTS HIM TO HAVE PO FOR QUALITY OF LIFE PURPOSES. PATIENT APPEARED TO TOLERATE TSP LEVEL OF NECTAR THICK LIQUIDS YESTERDAY. WILL ORDER LIQUIFIED PUREED LIKE NECTAR THICK SOUP CONSISTENCY TSP ONLY WITH POSTED ASPIRATION AND REFLUX PRECAUTIONS. STAFF AND FAMILY EDUCATED/TRAINED IN POSTED PRECAUTIONS (SEE SWALLOW EVAL FOR DETAILS). PER RD SEND CCHO-MED AND LOW NA DIET. WOULD BENEFIT FROM HIGH CALORIE SUPPLEMENTS. PLAN: INITIATE CCHO-MED LOW NA LIQUIFIED PUREED LIKE NECTAR THICK SOUP CONSISTENCY WITH POSTED PRECAUTIONS. D/W PATIENT'S DTR AND RAMIREZ BERUMEN Addendum: 12/08/19 at 1437 by YUNG NULL CUSTOMER SERVICE TELLER PATIENT REQUIRED PHARYNGEAL SUCTION OF MILD AMOUNTS OF PHLEGM COATED WITH YELLOW JELLO AFTER HIS DAUGHTER GAVE HIM SOME JELLO AND NECTAR THICK WATER WITH A TSP. POSTED ASPIRATION AND REFLUX PRECAUTIONS AND SUCTION PRN. DAUGHTER WANTS HIM TO HAVE PO AND COMFORT FEEDING FOR QUALITY OF LIFE PURPOSES. D/W J[place] GUZMÁN
--- NOTE | 2019-12-08 14:38 | Hematology/Onc Progress Note ---
Assessment/Plan Assessment/Plan Assessment and Recs: # Thrombocytopenia -- is likely related to sepsis from pna, currently in 100- 150 range --> smear has been ordered and reviewed --> meds are noted --> okay to continue on abx --> plt trend 169-->148k-->141 --> hold off steriods --> hep and hiv pend --> us abd negative for cirrhosis/hsm # Leukocytosis due to pna/lactic acidosis --> as per above --> smear has been reviewed --> as per id, on vanc/zosyn-->zosyn --> wbc trend: 16.7 # Anemia of chronic disease --> in this case due to hemodilution # Hyperbilirubinemia --> gi aware as per their recs -> may need ercp/mrcp as per gi # Cholestasis # Biliary obstruction # Elevated LFTs # PNA/Sepsis Appreciate consultation and will tasha Rn. Subjective Allergies: Coded Allergies: No Known Allergies (Unverified , 03/19/17) Subjective 12/08: awake, no acute events, wbc 16.7, afebrile, on abx, us abd negative Objective Objective Current Medications Medications (Trade) Dose Ordered Sig/Filemon Route PRN Reason Start Time Stop Time Status Last Admin Dose Admin Acetaminophen (Tylenol) 325 mg Q6H PRN ORAL Mild Pain/Temp > 100.5 12/07/19 09:30 01/06/20 09:29 Albuterol/ Ipratropium (Albuterol/ Ipratropium) 3 ml Q4H PRN HHN Shortness of Breath 12/05/19 23:15 12/10/19 23:14 12/07/19 12:02 Barium Sulfate (Varibar Honey) 250 ml NOW PRN MC RAD 12/07/19 14:45 12/10/19 14:35 Barium Sulfate (Varibar Heath) 240 ml NOW PRN MC RAD 12/07/19 14:45 12/10/19 14:35 Barium Sulfate (Varibar Pudding) 230 ml NOW PRN MC RAD 12/07/19 14:45 12/10/19 14:35 Dextrose (Dextrose 50%) 25 ml Q30M PRN IV Hypoglycemia 12/06/19 11:45 01/05/20 11:44 Dextrose (Dextrose 50%) 50 ml Q30M PRN IV Hypoglycemia 12/06/19 11:45 01/05/20 11:44 Diltiazem HCl (Cardizem) 30 mg EVERY 8 HOURS ORAL 12/06/19 14:00 01/05/20 13:59 12/08/19 05:54 Docusate Sodium (Colace) 100 mg TWICE A DAY ORAL 12/06/19 18:00 01/05/20 17:59 12/08/19 09:36 Insulin Aspart (NovoLOG) BEFORE MEALS AND HS SUBQ 12/06/19 16:30 01/05/20 16:29 12/08/19 12:33 Pantoprazole (Protonix) 40 mg DAILY ORAL 12/06/19 14:45 01/05/20 14:44 12/08/19 09:36 Piperacillin Sod/ Tazobactam Sod 3.375 gm/Sodium Chloride 110 ml @ 27.5 mls/hr EVERY 8 HOURS IVPB 12/06/19 14:00 12/11/19 13:59 12/08/19 13:58 Risperidone (RisperDAL) 0.5 mg Q12HR ORAL 12/06/19 09:00 01/05/20 08:59 12/08/19 09:36 Sodium Chloride 1,000 ml @ 50 mls/hr Q20H IV 12/06/19 14:45 01/05/20 14:44 12/08/19 05:55 Tamsulosin HCl (Flomax) 0.4 mg BEDTIME ORAL 12/06/19 21:00 01/05/20 20:59 12/07/19 20:24 Last 24 Hour Vital Signs Date Time Temp Pulse Resp B/P (MAP) Pulse Ox O2 Delivery O2 Flow Rate FiO2 12/08/19 12:00 Nasal Cannula 3.0 12/08/19 12:00 98.8 91 22 105/77 (86) 91 12/08/19 09:04 95 19 94 Nasal Cannula 3.0 32 12/08/19 08:00 Nasal Cannula 3.0 12/08/19 08:00 102 12/08/19 08:00 97.9 100 22 103/54 (70) 94 12/08/19 05:54 106 107/51 12/08/19 04:00 99 12/08/19 04:00 99.0 103 21 104/45 (64) 99 12/08/19 04:00 Nasal Cannula 3.0 12/08/19 00:00 104 12/08/19 00:00 Nasal Cannula 3.0 12/08/19 00:00 99.0 104 22 101/51 (68) 99 12/07/19 21:29 106 118/60 12/07/19 20:00 99.6 94 23 109/51 (70) 98 12/07/19 20:00 93 12/07/19 20:00 Nasal Cannula 3.0 12/07/19 16:00 Nasal Cannula 3.0 12/07/19 16:00 98.4 96 25 115/57 (76) 97 12/07/19 15:28 100 12/07/19 13:14 100 113/63 12/07/19 12:14 100 22 97 Nasal Cannula 3.0 32 102 20 95 12/07/19 12:00 Nasal Cannula 3.0 12/07/19 12:00 97.9 106 24 113/63 (80) 97 12/07/19 11:47 102 12/07/19 08:00 Nasal Cannula 3.0 12/07/19 08:00 100.0 111 26 105/60 (75) 96 12/07/19 07:44 107 12/07/19 07:00 102 22 96 Nasal Cannula 3.0 32 12/07/19 06:07 110 121/60 12/07/19 04:00 98.9 113 20 116/57 (76) 96 12/07/19 04:00 Nasal Cannula 3.0 12/07/19 04:00 115 12/07/19 00:42 107 12/07/19 00:00 97.9 108 22 113/58 (76) 96 12/07/19 00:00 Nasal Cannula 3.0 12/06/19 22:00 110 103/48 12/06/19 20:00 97.7 115 22 103/48 (66) 96 12/06/19 20:00 Nasal Cannula 3.0 12/06/19 20:00 109 12/06/19 16:00 99.0 110 22 119/60 (79) 97 12/06/19 16:00 Nasal Cannula 3.0 12/06/19 16:00 99 Intake and Output 12/07/19 12/08/19 19:00 07:00 Intake Total 800.2772 ml 560.0 ml Output Total 200 ml 600 ml Balance 600.2772 ml -40.0 ml Intake Oral 120 ml IV Total 680.2772 ml 560.0 ml Output Urine Total 200 ml 600 ml # Voids 2 Labs Test 12/05/19 17:40 12/05/19 18:32 12/05/19 18:40 12/06/19 02:25 White Blood Count 15.9 K/UL (4.8-10.8) 15.8 K/UL (4.8-10.8) Red Blood Count 4.75 M/UL (4.70-6.10) 4.31 M/UL (4.70-6.10) Hemoglobin 14.7 G/DL (14.2-18.0) 13.4 G/DL (14.2-18.0) Hematocrit 42.9 % (42.0-52.0) 39.2 % (42.0-52.0) Mean Corpuscular Volume 90 FL (80-99) 91 FL (80-99) Mean Corpuscular Hemoglobin 31.0 PG (27.0-31.0) 31.1 PG (27.0-31.0) Mean Corpuscular Hemoglobin Concent 34.2 G/DL (32.0-36.0) 34.1 G/DL (32.0-36.0) Red Cell Distribution Width 12.0 % (11.6-14.8) 12.2 % (11.6-14.8) Platelet Count 169 K/UL (150-450) 148 K/UL (150-450) Mean Platelet Volume 7.5 FL (6.5-10.1) 7.2 FL (6.5-10.1) Neutrophils (%) (Auto) % (45.0-75.0) % (45.0-75.0) Lymphocytes (%) (Auto) % (20.0-45.0) % (20.0-45.0) Monocytes (%) (Auto) % (1.0-10.0) % (1.0-10.0) Eosinophils (%) (Auto) % (0.0-3.0) % (0.0-3.0) Basophils (%) (Auto) % (0.0-2.0) % (0.0-2.0) Differential Total Cells Counted 100 Neutrophils % (Manual) 87 % (45-75) Lymphocytes % (Manual) 7 % (20-45) Monocytes % (Manual) 4 % (1-10) Eosinophils % (Manual) 0 % (0-3) Basophils % (Manual) 0 % (0-2) Band Neutrophils 2 % (0-8) Platelet Estimate Adequate Platelet Morphology Normal Red Blood Cell Morphology Normal Prothrombin Time 12.3 SEC (9.30-11.50) Prothromb Time International Ratio 1.2 (0.9-1.1) Activated Partial Thromboplast Time 31 SEC (23-33) Sodium Level 141 MMOL/L (136-145) 143 MMOL/L (136-145) Potassium Level 4.1 MMOL/L (3.5-5.1) 3.8 MMOL/L (3.5-5.1) Chloride Level 103 MMOL/L (98-107) 109 MMOL/L (98-107) Carbon Dioxide Level 25 MMOL/L (21-32) 23 MMOL/L (21-32) Anion Gap 13 mmol/L (5-15) 12 mmol/L (5-15) Blood Urea Nitrogen 39 mg/dL (7-18) 35 mg/dL (7-18) Creatinine 2.6 MG/DL (0.55-1.30) 2.0 MG/DL (0.55-1.30) Estimat Glomerular Filtration Rate mL/min (>60) mL/min (>60) Glucose Level 295 MG/DL (74-106) 242 MG/DL (74-106) Lactic Acid Level 5.30 mmol/L (0.4-2.0) 5.90 mmol/L (0.66-2.22) 2.90 mmol/L (0.4-2.0) Calcium Level 8.7 MG/DL (8.5-10.1) 7.9 MG/DL (8.5-10.1) Total Bilirubin 6.6 MG/DL (0.2-1.0) 6.6 MG/DL (0.2-1.0) Direct Bilirubin 5.5 MG/DL (0.0-0.3) 5.7 MG/DL (0.0-0.3) Aspartate Amino Transf (AST/SGOT) 106 U/L (15-37) 72 U/L (15-37) Alanine Aminotransferase (ALT/SGPT) 83 U/L (12-78) 65 U/L (12-78) Alkaline Phosphatase 390 U/L (46-116) 307 U/L (46-116) Total Creatine Kinase 138 U/L (26-308) Troponin I 0.000 ng/mL (0.000-0.056) Pro-B-Type Natriuretic Peptide 4188 pg/mL (0-125) Total Protein 7.6 G/DL (6.4-8.2) 6.7 G/DL (6.4-8.2) Albumin 2.5 G/DL (3.4-5.0) 2.1 G/DL (3.4-5.0) Globulin 5.1 g/dL 4.6 g/dL Albumin/Globulin Ratio 0.5 (1.0-2.7) 0.5 (1.0-2.7) Urine Color Brown Urine Appearance Clear Urine pH 8 (4.5-8.0) Urine Specific [place] 1.010 (1.005-1.035) Urine Protein 3+ (NEGATIVE) Urine Glucose (UA) Negative (NEGATIVE) Urine Ketones Negative (NEGATIVE) Urine Blood 4+ (NEGATIVE) Urine Nitrite Negative (NEGATIVE) Urine Bilirubin 2+ (NEGATIVE) Urine Ictotest Positive (NEGATIVE) Urine Urobilinogen 8 MG/DL (0.0-1.0) Urine Leukocyte Esterase 3+ (NEGATIVE) Urine RBC 10-15 /HPF (0 - 0) Urine WBC 5-10 /HPF (0 - 0) Urine Squamous Epithelial Cells None /LPF (NONE/OCC) Urine Bacteria Moderate /HPF (NONE) Test 12/06/19 08:45 12/06/19 19:50 12/07/19 01:00 12/07/19 04:30 Lactic Acid Level 2.70 mmol/L (0.4-2.0) Random Vancomycin Level 4.2 ug/mL Hepatitis A IgM Antibody Negative (Negative) Hepatitis B Surface Antigen Negative (Negative) Hepatitis B Core IgM Antibody Negative (Negative) Hepatitis C Antibody 0.3 s/co ratio (0.0-0.9) HIV (1&2) Antibody Rapid Negative (NEGATIVE) Cortisol AM Sample 17.9 UG/DL White Blood Count 15.2 K/UL (4.8-10.8) Red Blood Count 4.16 M/UL (4.70-6.10) Hemoglobin 13.0 G/DL (14.2-18.0) Hematocrit 38.2 % (42.0-52.0) Mean Corpuscular Volume 92 FL (80-99) Mean Corpuscular Hemoglobin 31.3 PG (27.0-31.0) Mean Corpuscular Hemoglobin Concent 34.1 G/DL (32.0-36.0) Red Cell Distribution Width 12.3 % (11.6-14.8) Platelet Count 150 K/UL (150-450) Mean Platelet Volume 7.0 FL (6.5-10.1) Neutrophils (%) (Auto) % (45.0-75.0) Lymphocytes (%) (Auto) % (20.0-45.0) Monocytes (%) (Auto) % (1.0-10.0) Eosinophils (%) (Auto) % (0.0-3.0) Basophils (%) (Auto) % (0.0-2.0) Differential Total Cells Counted 100 Neutrophils % (Manual) 93 % (45-75) Lymphocytes % (Manual) 4 % (20-45) Monocytes % (Manual) 3 % (1-10) Eosinophils % (Manual) 0 % (0-3) Basophils % (Manual) 0 % (0-2) Band Neutrophils 0 % (0-8) Platelet Estimate Adequate Platelet Morphology Normal Red Blood Cell Morphology Normal Sodium Level 147 MMOL/L (136-145) Potassium Level 3.3 MMOL/L (3.5-5.1) Chloride Level 113 MMOL/L (98-107) Carbon Dioxide Level 27 MMOL/L (21-32) Anion Gap 7 mmol/L (5-15) Blood Urea Nitrogen 33 mg/dL (7-18) Creatinine 1.9 MG/DL (0.55-1.30) Estimat Glomerular Filtration Rate mL/min (>60) Glucose Level 192 MG/DL (74-106) Hemoglobin A1c 7.2 % (4.3-6.0) Uric Acid 4.2 MG/DL (2.6-7.2) Calcium Level 8.2 MG/DL (8.5-10.1) Phosphorus Level 2.0 MG/DL (2.5-4.9) Magnesium Level 1.8 MG/DL (1.8-2.4) Iron Level 6 ug/dL (50-175) Total Iron Binding Capacity 152 ug/dL (250-450) Percent Iron Saturation 4 % (15-50) Unsaturated Iron Binding 146 ug/dL (112-346) Ferritin 274 NG/ML (8-388) Total Bilirubin 5.7 MG/DL (0.2-1.0) Direct Bilirubin 5.0 MG/DL (0.0-0.3) Gamma Glutamyl Transpeptidase 130 U/L (5-85) Aspartate Amino Transf (AST/SGOT) 45 U/L (15-37) Alanine Aminotransferase (ALT/SGPT) 52 U/L (12-78) Alkaline Phosphatase 244 U/L (46-116) Troponin I 0.000 ng/mL (0.000-0.056) C-Reactive Protein, Quantitative 41.2 mg/dL (0.00-0.90) Pro-B-Type Natriuretic Peptide 1173 pg/mL (0-125) Total Protein 6.4 G/DL (6.4-8.2) Albumin 1.9 G/DL (3.4-5.0) Globulin 4.5 g/dL Albumin/Globulin Ratio 0.4 (1.0-2.7) Triglycerides Level 80 MG/DL (30-150) Cholesterol Level 73 MG/DL (< 200) LDL Cholesterol 40 mg/dL (<100) HDL Cholesterol 13 MG/DL (40-60) Cholesterol/HDL Ratio 5.6 (3.3-4.4) Vitamin B12 Level 227 PG/ML (193-986) Folate 9.0 NG/ML (8.6-58.9) Thyroid Stimulating Hormone (TSH) 0.183 uiU/mL (0.358-3.740) Test 12/08/19 04:30 White Blood Count 16.7 K/UL (4.8-10.8) Red Blood Count 4.05 M/UL (4.70-6.10) Hemoglobin 12.6 G/DL (14.2-18.0) Hematocrit 37.3 % (42.0-52.0) Mean Corpuscular Volume 92 FL (80-99) Mean Corpuscular Hemoglobin 31.1 PG (27.0-31.0) Mean Corpuscular Hemoglobin Concent 33.7 G/DL (32.0-36.0) Red Cell Distribution Width 12.7 % (11.6-14.8) Platelet Count 141 K/UL (150-450) Mean Platelet Volume 6.9 FL (6.5-10.1) Neutrophils (%) (Auto) % (45.0-75.0) Lymphocytes (%) (Auto) % (20.0-45.0) Monocytes (%) (Auto) % (1.0-10.0) Eosinophils (%) (Auto) % (0.0-3.0) Basophils (%) (Auto) % (0.0-2.0) Differential Total Cells Counted 100 Neutrophils % (Manual) 88 % (45-75) Lymphocytes % (Manual) 8 % (20-45) Monocytes % (Manual) 4 % (1-10) Eosinophils % (Manual) 0 % (0-3) Basophils % (Manual) 0 % (0-2) Band Neutrophils 0 % (0-8) Platelet Estimate Decreased Platelet Morphology Normal Red Blood Cell Morphology Normal Erythrocyte Sedimentation Rate 84 MM/HR (0-20) Prothrombin Time 12.0 SEC (9.30-11.50) Prothromb Time International Ratio 1.1 (0.9-1.1) Activated Partial Thromboplast Time 32 SEC (23-33) Sodium Level 150 MMOL/L (136-145) Potassium Level 3.2 MMOL/L (3.5-5.1) Chloride Level 114 MMOL/L (98-107) Carbon Dioxide Level 26 MMOL/L (21-32) Anion Gap 11 mmol/L (5-15) Blood Urea Nitrogen 41 mg/dL (7-18) Creatinine 2.0 MG/DL (0.55-1.30) Estimat Glomerular Filtration Rate mL/min (>60) Glucose Level 159 MG/DL (74-106) Lactic Acid Level 1.50 mmol/L (0.4-2.0) Uric Acid 3.7 MG/DL (2.6-7.2) Calcium Level 8.3 MG/DL (8.5-10.1) Phosphorus Level 3.3 MG/DL (2.5-4.9) Magnesium Level 1.9 MG/DL (1.8-2.4) Total Bilirubin 7.2 MG/DL (0.2-1.0) Direct Bilirubin 6.2 MG/DL (0.0-0.3) Aspartate Amino Transf (AST/SGOT) 38 U/L (15-37) Alanine Aminotransferase (ALT/SGPT) 36 U/L (12-78) Alkaline Phosphatase 214 U/L (46-116) C-Reactive Protein, Quantitative 45.7 mg/dL (0.00-0.90) Pro-B-Type Natriuretic Peptide 1227 pg/mL (0-125) Total Protein 6.2 G/DL (6.4-8.2) Albumin 1.7 G/DL (3.4-5.0) Globulin 4.5 g/dL Albumin/Globulin Ratio 0.4 (1.0-2.7) Amylase Level 86 U/L (25-115) Lipase 272 U/L (73-393) Height (Feet): 5 Height (Inches): 6.00 Weight (Pounds): 159 Objective Physical Exam Vitals: noted General: no apparent distress HEENT: supple Resp: normal breath sounds, no respiratory distress, NC+ Cardiovascular: normal rate Gastrointestinal: normal inspection, non tender, soft, normal bowel sounds, non -distended Skin: normal inspection, normal color, no rash, warm/dry, palpation normal, well hydrated Lymphatic: normal inspection, no adenopathy Damian Batres MD Dec 08, 2019 14:38
--- NOTE | 2019-12-08 14:49 | Surgery Progress Note ---
Surgery Progress Note Subjective Additional Comments labs worsening could not have MRCP exam unchanged GI input noted Objective Last 24 Hour Vital Signs Date Time Temp Pulse Resp B/P (MAP) Pulse Ox O2 Delivery O2 Flow Rate FiO2 12/08/19 12:00 Nasal Cannula 3.0 12/08/19 12:00 98.8 91 22 105/77 (86) 91 12/08/19 09:04 95 19 94 Nasal Cannula 3.0 32 12/08/19 08:00 Nasal Cannula 3.0 12/08/19 08:00 102 12/08/19 08:00 97.9 100 22 103/54 (70) 94 12/08/19 05:54 106 107/51 12/08/19 04:00 99 12/08/19 04:00 99.0 103 21 104/45 (64) 99 12/08/19 04:00 Nasal Cannula 3.0 12/08/19 00:00 104 12/08/19 00:00 Nasal Cannula 3.0 12/08/19 00:00 99.0 104 22 101/51 (68) 99 12/07/19 21:29 106 118/60 12/07/19 20:00 99.6 94 23 109/51 (70) 98 12/07/19 20:00 93 12/07/19 20:00 Nasal Cannula 3.0 12/07/19 16:00 Nasal Cannula 3.0 12/07/19 16:00 98.4 96 25 115/57 (76) 97 12/07/19 15:28 100 I&O Intake and Output 12/07/19 12/08/19 19:00 07:00 Intake Total 800.2772 ml 560.0 ml Output Total 200 ml 600 ml Balance 600.2772 ml -40.0 ml Intake Oral 120 ml IV Total 680.2772 ml 560.0 ml Output Urine Total 200 ml 600 ml # Voids 2 Dressing: other Wound: other Drains: other Cardiovascular: RSR Respiratory: decreased breath sounds Abdomen: soft, non-tender, present bowel sounds, non-distended Extremities: no tenderness, no cyanosis Laboratory Tests Test 12/08/19 04:30 White Blood Count 16.7 K/UL (4.8-10.8) H Red Blood Count 4.05 M/UL (4.70-6.10) L Hemoglobin 12.6 G/DL (14.2-18.0) L Hematocrit 37.3 % (42.0-52.0) L Mean Corpuscular Volume 92 FL (80-99) Mean Corpuscular Hemoglobin 31.1 PG (27.0-31.0) H Mean Corpuscular Hemoglobin Concent 33.7 G/DL (32.0-36.0) Red Cell Distribution Width 12.7 % (11.6-14.8) Platelet Count 141 K/UL (150-450) L Mean Platelet Volume 6.9 FL (6.5-10.1) Neutrophils (%) (Auto) % (45.0-75.0) Lymphocytes (%) (Auto) % (20.0-45.0) Monocytes (%) (Auto) % (1.0-10.0) Eosinophils (%) (Auto) % (0.0-3.0) Basophils (%) (Auto) % (0.0-2.0) Differential Total Cells Counted 100 Neutrophils % (Manual) 88 % (45-75) H Lymphocytes % (Manual) 8 % (20-45) L Monocytes % (Manual) 4 % (1-10) Eosinophils % (Manual) 0 % (0-3) Basophils % (Manual) 0 % (0-2) Band Neutrophils 0 % (0-8) Platelet Estimate Decreased L Platelet Morphology Normal Red Blood Cell Morphology Normal Erythrocyte Sedimentation Rate 84 MM/HR (0-20) H Prothrombin Time 12.0 SEC (9.30-11.50) H Prothromb Time International Ratio 1.1 (0.9-1.1) Activated Partial Thromboplast Time 32 SEC (23-33) Sodium Level 150 MMOL/L (136-145) H Potassium Level 3.2 MMOL/L (3.5-5.1) L Chloride Level 114 MMOL/L (98-107) H Carbon Dioxide Level 26 MMOL/L (21-32) Anion Gap 11 mmol/L (5-15) Blood Urea Nitrogen 41 mg/dL (7-18) H Creatinine 2.0 MG/DL (0.55-1.30) H Estimat Glomerular Filtration Rate mL/min (>60) Glucose Level 159 MG/DL (74-106) H Lactic Acid Level 1.50 mmol/L (0.4-2.0) Uric Acid 3.7 MG/DL (2.6-7.2) Calcium Level 8.3 MG/DL (8.5-10.1) L Phosphorus Level 3.3 MG/DL (2.5-4.9) Magnesium Level 1.9 MG/DL (1.8-2.4) Total Bilirubin 7.2 MG/DL (0.2-1.0) H Direct Bilirubin 6.2 MG/DL (0.0-0.3) H Aspartate Amino Transf (AST/SGOT) 38 U/L (15-37) H Alanine Aminotransferase (ALT/SGPT) 36 U/L (12-78) Alkaline Phosphatase 214 U/L (46-116) H C-Reactive Protein, Quantitative 45.7 mg/dL (0.00-0.90) H Pro-B-Type Natriuretic Peptide 1227 pg/mL (0-125) H Total Protein 6.2 G/DL (6.4-8.2) L Albumin 1.7 G/DL (3.4-5.0) L Globulin 4.5 g/dL Albumin/Globulin Ratio 0.4 (1.0-2.7) L Amylase Level 86 U/L (25-115) Lipase 272 U/L (73-393) Plan Problems: (1) Sepsis Assessment & Plan: 89-year-old male with leukocytosis, fevers, tachycardia, abnormal labs. Abdominal ultrasound nondiagnostic MRCP pending - eval for ERCP given condition Likely biliary obstruction potentially due to mass versus stone possible cholangitis discussed with GI Continue IV antibiotics per infectious disease No acute surgical invention planned IV fluids Trend labs Resuscitation We will follow with recommendations Thank you for let me participate in patient's care (2) Biliary obstruction Assessment & Plan: Findings: The study was limited due to bowel gas body habitus. The liver is mildly heterogeneous with questionable surface nodularity. Doppler interrogation of the main portal vein shows patency with hepatopedal, monophasic flow. There is no biliary ductal dilatation identified. Gallbladder is grossly unremarkable. There demonstrated part of the pancreas, aorta and IVC show no obvious abnormalities. The structures are poorly seen. Both kidneys are poorly seen. There is no obvious hydronephrosis. IMPRESSION: No acute findings Very limited study (3) Elevated LFTs Ajit Mcnulty Dec 08, 2019 14:49
[2019-12-08 16:00] VITALS: BP 100/53
--- NOTE | 2019-12-08 19:20 | NUR ---
NURSE NOTES: Pt report received from RAMIREZ BERUMEN. pt is alert and oriented times 1. pt remains stable. pt is on 3L NC, able to stat at 98% no acute signs symptoms of resp distress. 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 pt bed is low, locked, armed, bed rails up times 3, call light within reach. will follow plan of care.
--- NOTE | 2019-12-08 19:30 | NUR ---
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
[2019-12-08 20:00] VITALS: BP 107/60
[2019-12-08] MEDS: Tamsulosin 0.4mg cap ORAL SCH (20:32)
--- NOTE | 2019-12-08 21:21 | General Progress Note ---
Assessment/Plan Problem List: (1) Sepsis ICD Codes: A41.9 - Sepsis, unspecified organism SNOMED: 34250588 Qualifiers: Qualified Codes: A41.9 - Sepsis, unspecified organism; R65.20 - Severe sepsis without septic shock; N17.9 - Acute kidney failure, unspecified (2) Alzheimer's dementia ICD Codes: G30.9 - Alzheimer's disease, unspecified; F02.80 - Dementia in other diseases classified elsewhere without behavioral disturbance SNOMED: 83749587 Qualifiers: Qualified Codes: G30.9 - Alzheimer's disease, unspecified; F02.80 - Dementia in other diseases classified elsewhere without behavioral disturbance (3) Elevated LFTs ICD Codes: R94.5 - Abnormal results of liver function studies SNOMED: 610763732, 316047272 (4) Cholestasis ICD Codes: K83.1 - Obstruction of bile duct SNOMED: 77077384 (5) Hyperbilirubinemia ICD Codes: E80.6 - Other disorders of bilirubin metabolism SNOMED: 94226964 (6) Left lower lobe pneumonia ICD Codes: J18.9 - Pneumonia, unspecified organism SNOMED: 136530772 Qualifiers: Qualified Codes: J18.9 - Pneumonia, unspecified organism (7) Renal failure (ARF), acute on chronic ICD Codes: N17.9 - Acute kidney failure, unspecified; N18.9 - Chronic kidney disease, unspecified SNOMED: 220844223 Qualifiers: Qualified Codes: N17.9 - Acute kidney failure, unspecified; N18.3 - Chronic kidney disease, stage 3 (moderate) Status: progressing, unchanged Assessment/Plan: low k improving discuss w gi re etiology of elev lft not much change pna sepsis abx per id confused reviewed chart and labs dm.elevated sugar s Subjective ROS Limited/Unobtainable: Yes Allergies: Coded Allergies: No Known Allergies (Unverified , 03/19/17) Objective Last 24 Hour Vital Signs Date Time Temp Pulse Resp B/P (MAP) Pulse Ox O2 Delivery O2 Flow Rate FiO2 12/08/19 21:05 101 145/70 12/08/19 20:15 97 Nasal Cannula 3.0 32 12/08/19 20:15 85 20 97 Nasal Cannula 3.0 32 12/08/19 16:00 87 12/08/19 16:00 97.5 88 22 100/53 (69) 99 12/08/19 16:00 Nasal Cannula 3.0 12/08/19 15:16 91 105/77 12/08/19 12:00 Nasal Cannula 3.0 12/08/19 12:00 98.8 91 22 105/77 (86) 91 12/08/19 12:00 87 12/08/19 09:04 95 19 94 Nasal Cannula 3.0 32 12/08/19 08:00 Nasal Cannula 3.0 12/08/19 08:00 102 12/08/19 08:00 97.9 100 22 103/54 (70) 94 12/08/19 05:54 106 107/51 12/08/19 04:00 99 12/08/19 04:00 99.0 103 21 104/45 (64) 99 12/08/19 04:00 Nasal Cannula 3.0 12/08/19 00:00 104 12/08/19 00:00 Nasal Cannula 3.0 12/08/19 00:00 99.0 104 22 101/51 (68) 99 12/07/19 21:29 106 118/60 Intake and Output 12/07/19 12/08/19 19:00 07:00 Intake Total 800.2772 ml 560.0 ml Output Total 200 ml 600 ml Balance 600.2772 ml -40.0 ml Intake Oral 120 ml IV Total 680.2772 ml 560.0 ml Output Urine Total 200 ml 600 ml # Voids 2 Laboratory Tests 12/08/19 04:30: White Blood Count 16.7H, Red Blood Count 4.05L, Hemoglobin 12.6L, Hematocrit 37.3L, Mean Corpuscular Volume 92, Mean Corpuscular Hemoglobin 31.1H, Mean Corpuscular Hemoglobin Concent 33.7, Red Cell Distribution Width 12.7, Platelet Count 141L, Mean Platelet Volume 6.9, Neutrophils (%) (Auto) , Lymphocytes (%) ( Auto) , Monocytes (%) (Auto) , Eosinophils (%) (Auto) , Basophils (%) (Auto) , Differential Total Cells Counted 100, Neutrophils % (Manual) 88H, Lymphocytes % (Manual) 8L, Monocytes % (Manual) 4, Eosinophils % (Manual) 0, Basophils % ( Manual) 0, Band Neutrophils 0, Platelet Estimate DecreasedL, Platelet Morphology Normal, Red Blood Cell Morphology Normal, Erythrocyte Sedimentation Rate 84H, Prothrombin Time 12.0H, Prothromb Time International Ratio 1.1, Activated Partial Thromboplast Time 32, Sodium Level 150H, Potassium Level 3.2L , Chloride Level 114H, Carbon Dioxide Level 26, Anion Gap 11, Blood Urea Nitrogen 41H, Creatinine 2.0H, Estimat Glomerular Filtration Rate , Glucose Level 159H, Lactic Acid Level 1.50, Uric Acid 3.7, Calcium Level 8.3L, Phosphorus Level 3.3, Magnesium Level 1.9, Total Bilirubin 7.2H, Direct Bilirubin 6.2H, Aspartate Amino Transf (AST/SGOT) 38H, Alanine Aminotransferase (ALT/SGPT) 36, Alkaline Phosphatase 214H, C-Reactive Protein, Quantitative 45.7H , Pro-B-Type Natriuretic Peptide 1227H, Total Protein 6.2L, Albumin 1.7L, Globulin 4.5, Albumin/Globulin Ratio 0.4L, Amylase Level 86, Lipase 272 Height (Feet): 5 Height (Inches): 6.00 Weight (Pounds): 159 General Appearance: lethargic, confused Cardiovascular: normal rate Respiratory/Chest: lungs clear Abdomen: soft Gurmeet Elizabeth MD Dec 08, 2019 21:21
[2019-12-09] VITALS: BP 117/60
[2019-12-09 04:00] VITALS: BP 110/58
[2019-12-09 05:43] LABS: HEMATOCRIT 36.4 % (42.0-52.0); HEMOGLOBIN 12.3 G/DL (14.2-18.0); MEAN CORPUSCULAR VOLUME 93 FL (80-99); PLATELET COUNT 128 K/UL (150-450); RED BLOOD COUNT 3.93 M/UL (4.70-6.10); RED CELL DISTRIBUTION WIDTH 12.9 % (11.6-14.8); WHITE BLOOD COUNT 14.1 K/UL (4.8-10.8)
[2019-12-09] MEDS: Piperacillin/Tazobactam 3.375 GM in NS 110 ML IVPB SCH ×3 (06:10→22:51)
[2019-12-09] MEDS: dilTIAZem HCl 30mg tab ORAL SCH ×3 (06:11→22:50)
[2019-12-09 06:13] LABS: ALANINE AMINOTRANSFERASE 33 U/L (12-78); ALBUMIN 1.7 G/DL (3.4-5.0); ALBUMIN/GLOBULIN RATIO 0.4 (1.0-2.7); ALKALINE PHOSPHATASE 213 U/L (46-116); ANION GAP 10 mmol/L (5-15); ASPARTATE AMINO TRANSFERASE 45 U/L (15-37); BILIRUBIN,TOTAL 8.2 MG/DL (0.2-1.0); BLOOD UREA NITROGEN 43 mg/dL (7-18); CALCIUM 8.5 MG/DL (8.5-10.1); CARBON DIOXIDE 27 MMOL/L (21-32); CHLORIDE 116 MMOL/L (98-107); CREATININE 1.9 MG/DL (0.55-1.30); SODIUM 153 MMOL/L (136-145)
[2019-12-09] MEDS: NovoLOG Insulin Flexpen SUBQ SCH ×4 (06:15→22:52)
[2019-12-09 06:17] LABS: BILIRUBIN,DIRECT 7.2 MG/DL (0.0-0.3)
[2019-12-09 06:22] LABS: PHOSPHORUS 2.6 MG/DL (2.5-4.9)
--- NOTE | 2019-12-09 07:11 | NUR ---
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 REC,D PT WITH HOB ELEVATED 45 DEGREE AWAKE AND ALERT DENIES CP OR SOB AT THIS TIME.PT USING O2 @ 2L/MINTS VIA N/C.PT REPOSITIONED IN BED MADE COMFORTABLE POSSIBLE . PT ASSISTED WITH FEEDING.PT ENCOURAGED TO EAT.PT HAS A H.L G# 18 ON RT FA PATENT.PT RECEIVING IVF,S 1/2 NS @ 50CC/HRS INFUSING WELL . NO ACUTE DISTRESS NOTED AT THIS TIME. WILL CONT TO MONITOR.
--- NOTE | 2019-12-09 07:15 | NUR ---
NURSE NOTES:HELD BREAKFAST TRAY .GARFIELD U.S TECH PERFORMING ABD US PER M.D BENJAMINI ORDERS. ABD U.S WAS DONE THREE DAYS AGO BUT REPORT IS NOT CLEAR. WILL CONT TO MONITOR.
--- NOTE | 2019-12-09 07:20 | NUR ---
HAND-OFF: Report given to RAMIREZ BERUMEN. Pt remains stable.
[2019-12-09 08:00] VITALS: BP 108/62
--- NOTE | 2019-12-09 08:45 | NUR ---
NURSE NOTES: PT HAVING RESPIRATORY DISTRESS DURING LUCIO CREDIT AUTHORIZER WAS FEEDING THE PATIENT,STOOPED FEEDING THE AND PLACED A TELEPHONE CALL TO DR PEREZ AND MADE AWARE & NOTIED REGARDING PT HAD A RESPIRATORY DISTRESS AND UNABLE TO LAYING FLAT AND PROVIDE ORAL SUCTIONING .PT SEEMS BETTER AFTER PROVING ORAL SUCTIONING. WILL CONT TO MONITOR.
--- NOTE | 2019-12-09 08:50 | NUR ---
NURSE NOTES:PT K+ 3.0.DR HENDRIX CAME TO SEE THE PT & MADE AWARE & NOTIFIED REGARDING LOW POTASSIUM LEVEL 3.0. M.D STATING THAT HE WILL ORDER POTASSIUM SUPPLEMENT. WILL CONT TO MONITOR.
--- NOTE | 2019-12-09 09:02 | Infectious Diseases Prog Note ---
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 Hypernatremia RECOMMENDATION: We will continue with Zosyn We will follow up the cultures & repeated abdominal US Subjective ROS Limited/Unobtainable: Yes Constitutional: Denies: fever Respiratory: Reports: other - respiratory distress with eating Gastrointestinal/Abdominal: Reports: no symptoms Allergies: Coded Allergies: No Known Allergies (Unverified , 03/19/17) Objective Vital Signs Last 24 Hour Vital Signs Date Time Temp Pulse Resp B/P (MAP) Pulse Ox O2 Delivery O2 Flow Rate FiO2 12/09/19 08:00 Nasal Cannula 3.0 12/09/19 06:11 101 112/64 12/09/19 04:00 Nasal Cannula 3.0 12/09/19 04:00 88 12/09/19 04:00 98.1 89 21 110/58 (75) 99 12/09/19 00:00 Nasal Cannula 3.0 12/09/19 00:00 99 12/09/19 00:00 98.1 97 20 117/60 (79) 99 12/08/19 21:05 101 145/70 12/08/19 20:15 97 Nasal Cannula 3.0 32 12/08/19 20:15 85 20 97 Nasal Cannula 3.0 32 12/08/19 20:00 98.1 88 23 107/60 (76) 99 12/08/19 20:00 86 12/08/19 20:00 Nasal Cannula 3.0 12/08/19 16:00 87 12/08/19 16:00 97.5 88 22 100/53 (69) 99 12/08/19 16:00 Nasal Cannula 3.0 12/08/19 15:16 91 105/77 12/08/19 12:00 Nasal Cannula 3.0 12/08/19 12:00 98.8 91 22 105/77 (86) 91 12/08/19 12:00 87 12/08/19 09:04 95 19 94 Nasal Cannula 3.0 32 Height (Feet): 5 Height (Inches): 6.00 Weight (Pounds): 159 HEENT: mucous membranes moist Respiratory/Chest: normal breath sounds, other - oxygen by nasal cannula Cardiovascular: tachycardia Abdomen: soft, non tender Extremities: no edema Neurologic/Psychiatric: alert, responsive Laboratory Tests Test 12/09/19 04:00 White Blood Count 14.1 K/UL (4.8-10.8) H Red Blood Count 3.93 M/UL (4.70-6.10) L Hemoglobin 12.3 G/DL (14.2-18.0) L Hematocrit 36.4 % (42.0-52.0) L Mean Corpuscular Volume 93 FL (80-99) Mean Corpuscular Hemoglobin 31.3 PG (27.0-31.0) H Mean Corpuscular Hemoglobin Concent 33.8 G/DL (32.0-36.0) Red Cell Distribution Width 12.9 % (11.6-14.8) Platelet Count 128 K/UL (150-450) L Mean Platelet Volume 7.4 FL (6.5-10.1) Neutrophils (%) (Auto) % (45.0-75.0) Lymphocytes (%) (Auto) % (20.0-45.0) Monocytes (%) (Auto) % (1.0-10.0) Eosinophils (%) (Auto) % (0.0-3.0) Basophils (%) (Auto) % (0.0-2.0) Differential Total Cells Counted 100 Neutrophils % (Manual) 82 % (45-75) H Lymphocytes % (Manual) 12 % (20-45) L Monocytes % (Manual) 6 % (1-10) Eosinophils % (Manual) 0 % (0-3) Basophils % (Manual) 0 % (0-2) Band Neutrophils 0 % (0-8) Platelet Estimate Decreased L Platelet Morphology Normal Red Blood Cell Morphology Normal Sodium Level 153 MMOL/L (136-145) H Potassium Level 3.0 MMOL/L (3.5-5.1) L Chloride Level 116 MMOL/L (98-107) H Carbon Dioxide Level 27 MMOL/L (21-32) Anion Gap 10 mmol/L (5-15) Blood Urea Nitrogen 43 mg/dL (7-18) H Creatinine 1.9 MG/DL (0.55-1.30) H Estimat Glomerular Filtration Rate mL/min (>60) Glucose Level 159 MG/DL (74-106) H Calcium Level 8.5 MG/DL (8.5-10.1) Phosphorus Level 2.6 MG/DL (2.5-4.9) Magnesium Level 2.0 MG/DL (1.8-2.4) Total Bilirubin 8.2 MG/DL (0.2-1.0) H Direct Bilirubin 7.2 MG/DL (0.0-0.3) H Aspartate Amino Transf (AST/SGOT) 45 U/L (15-37) H Alanine Aminotransferase (ALT/SGPT) 33 U/L (12-78) Alkaline Phosphatase 213 U/L (46-116) H C-Reactive Protein, Quantitative 36.8 mg/dL (0.00-0.90) H Pro-B-Type Natriuretic Peptide 1268 pg/mL (0-125) H Total Protein 6.3 G/DL (6.4-8.2) L Albumin 1.7 G/DL (3.4-5.0) L Globulin 4.6 g/dL Albumin/Globulin Ratio 0.4 (1.0-2.7) L Current Medications Medications (Trade) Dose Ordered Sig/Filemon Route PRN Reason Start Time Stop Time Status Last Admin Dose Admin Acetaminophen (Tylenol) 325 mg Q6H PRN ORAL Mild Pain/Temp > 100.5 12/07/19 09:30 01/06/20 09:29 Albuterol/ Ipratropium (Albuterol/ Ipratropium) 3 ml Q4H PRN HHN Shortness of Breath 12/05/19 23:15 12/10/19 23:14 12/07/19 12:02 Barium Sulfate (Varibar Honey) 250 ml NOW PRN MC RAD 12/07/19 14:45 12/10/19 14:35 Barium Sulfate (Varibar Flintstone) 240 ml NOW PRN MC RAD 12/07/19 14:45 12/10/19 14:35 Barium Sulfate (Varibar Pudding) 230 ml NOW PRN MC RAD 12/07/19 14:45 12/10/19 14:35 Dextrose 1,000 ml @ 100 mls/hr Q10H IV 12/09/19 08:30 01/08/20 08:29 Dextrose (Dextrose 50%) 25 ml Q30M PRN IV Hypoglycemia 12/06/19 11:45 01/05/20 11:44 Dextrose (Dextrose 50%) 50 ml Q30M PRN IV Hypoglycemia 12/06/19 11:45 01/05/20 11:44 Diltiazem HCl (Cardizem) 30 mg EVERY 8 HOURS ORAL 12/06/19 14:00 01/05/20 13:59 12/09/19 06:11 Docusate Sodium (Colace) 100 mg TWICE A DAY ORAL 12/06/19 18:00 01/05/20 17:59 12/08/19 19:08 Insulin Aspart (NovoLOG) BEFORE MEALS AND HS SUBQ 12/06/19 16:30 01/05/20 16:29 12/09/19 06:15 Pantoprazole (Protonix) 40 mg DAILY ORAL 12/06/19 14:45 01/05/20 14:44 12/08/19 09:36 Piperacillin Sod/ Tazobactam Sod 3.375 gm/Sodium Chloride 110 ml @ 27.5 mls/hr EVERY 8 HOURS IVPB 12/06/19 14:00 12/11/19 13:59 12/09/19 06:10 Risperidone (RisperDAL) 0.5 mg Q12HR ORAL 12/06/19 09:00 01/05/20 08:59 12/08/19 20:32 Sodium Chloride 1,000 ml @ 50 mls/hr Q20H IV 12/06/19 14:45 01/05/20 14:44 12/09/19 02:33 Tamsulosin HCl (Flomax) 0.4 mg BEDTIME ORAL 12/06/19 21:00 01/05/20 20:59 12/08/19 20:32 Enrike Hadley MD Dec 09, 2019 09:02
--- NOTE | 2019-12-09 10:06 | Nephrology Progress Note ---
Assessment/Plan Problem List: (1) Renal failure (ARF), acute on chronic (2) Alzheimer's dementia (3) Sepsis (4) UTI (urinary tract infection) Assessment Acute on Chronic renal failure- CHF- Past echo 55% EjFx Sepsis, High Lactate- Leukocytosis Left lower lobe pneumonia Alzheimer's dementia UTI (urinary tract infection) Hyperglycemia, DM II Plan 2D echo noted KCL IV and Po as needed slow hydrate- D5w monitor renal parameters correct electrolytes BP and BS in check per orders Subjective ROS Limited/Unobtainable: No Constitutional: Reports: malaise, weakness Objective Objective Last 24 Hour Vital Signs Date Time Temp Pulse Resp B/P (MAP) Pulse Ox O2 Delivery O2 Flow Rate FiO2 12/09/19 08:00 97.3 83 22 108/62 (77) 98 12/09/19 08:00 Nasal Cannula 3.0 12/09/19 06:11 101 112/64 12/09/19 04:00 Nasal Cannula 3.0 12/09/19 04:00 88 12/09/19 04:00 98.1 89 21 110/58 (75) 99 12/09/19 00:00 Nasal Cannula 3.0 12/09/19 00:00 99 12/09/19 00:00 98.1 97 20 117/60 (79) 99 12/08/19 21:05 101 145/70 12/08/19 20:15 97 Nasal Cannula 3.0 32 12/08/19 20:15 85 20 97 Nasal Cannula 3.0 32 12/08/19 20:00 98.1 88 23 107/60 (76) 99 12/08/19 20:00 86 12/08/19 20:00 Nasal Cannula 3.0 12/08/19 16:00 87 12/08/19 16:00 97.5 88 22 100/53 (69) 99 12/08/19 16:00 Nasal Cannula 3.0 12/08/19 15:16 91 105/77 12/08/19 12:00 Nasal Cannula 3.0 12/08/19 12:00 98.8 91 22 105/77 (86) 91 12/08/19 12:00 87 Intake and Output 12/08/19 12/09/19 19:00 07:00 Intake Total 440 ml 610.0 ml Output Total 900 ml 900 ml Balance -460 ml -290.0 ml Intake Oral 190 ml IV Total 250 ml 610.0 ml Output Urine Total 900 ml 900 ml Laboratory Tests 12/09/19 04:00: White Blood Count 14.1H, Red Blood Count 3.93L, Hemoglobin 12.3L, Hematocrit 36.4L, Mean Corpuscular Volume 93, Mean Corpuscular Hemoglobin 31.3H, Mean Corpuscular Hemoglobin Concent 33.8, Red Cell Distribution Width 12.9, Platelet Count 128L, Mean Platelet Volume 7.4, Neutrophils (%) (Auto) , Lymphocytes (%) ( Auto) , Monocytes (%) (Auto) , Eosinophils (%) (Auto) , Basophils (%) (Auto) , Differential Total Cells Counted 100, Neutrophils % (Manual) 82H, Lymphocytes % (Manual) 12L, Monocytes % (Manual) 6, Eosinophils % (Manual) 0, Basophils % ( Manual) 0, Band Neutrophils 0, Platelet Estimate DecreasedL, Platelet Morphology Normal, Red Blood Cell Morphology Normal, Sodium Level 153H, Potassium Level 3.0L, Chloride Level 116H, Carbon Dioxide Level 27, Anion Gap 10 , Blood Urea Nitrogen 43H, Creatinine 1.9H, Estimat Glomerular Filtration Rate , Glucose Level 159H, Calcium Level 8.5, Phosphorus Level 2.6, Magnesium Level 2.0, Total Bilirubin 8.2H, Direct Bilirubin 7.2H, Aspartate Amino Transf (AST/ SGOT) 45H, Alanine Aminotransferase (ALT/SGPT) 33, Alkaline Phosphatase 213H, C- Reactive Protein, Quantitative 36.8H, Pro-B-Type Natriuretic Peptide 1268H, Total Protein 6.3L, Albumin 1.7L, Globulin 4.6, Albumin/Globulin Ratio 0.4L Height (Feet): 5 Height (Inches): 6.00 Weight (Pounds): 159 General Appearance: no apparent distress Cardiovascular: tachycardia Respiratory/Chest: decreased breath sounds Abdomen: soft Jose Ashraf MD Dec 09, 2019 10:06
[2019-12-09] MEDS: Docusate 100mg cap ORAL SCH ×2 (10:11→18:00)
--- NOTE | 2019-12-09 11:02 | Diagnostic Imaging Report ---
Indication: Abdominal distention, abnormal liver function tests, abnormal renal function tests Technique: Aggarwal-scale and duplex images of the upper abdomen were obtained Comparison: Limited abdominal sonogram dated 12/06/2019 Findings: Exam is limited by patient body habitus and overlying bowel gas Gallbladder is distended. No definite stones, wall thickening, nor pericholecystic fluid. Sonographic Robledo's sign is negative. Common bile duct measures 5 mm in diameter. No intrahepatic biliary ductal dilatation. Liver demonstrates normal echogenicity, no focal abnormality. Note, however, that the left hepatic lobe is not visualized, obscured by bowel gas. Previously questioned hepatic surface nodularity is not evident on this exam. Portal vein and hepatic veins are patent. Pancreas is obscured by bowel gas. Spleen is unremarkable. Left kidney measures 10.6 cm in length. Right kidney measures 9 cm length. Both kidneys demonstrate equivocally slightly increased echogenicity. There is no hydronephrosis. No focal abnormality . Abdominal aorta is obscured by bowel gas . The bladder demonstrates some trabeculation of the bladder wall Impression: Limited exam, with nonvisualization of the left hepatic lobe, pancreas, and abdominal aorta Gallbladder is distended, but there are no gallstones and no wall thickening demonstrated. Negative for dilated bile ducts Equivocally mildly increased renal echogenicity, if real could indicate medical renal disease. Negative for evidence of hydronephrosis Trabeculated bladder wall, could indicate chronic bladder outlet obstruction
--- NOTE | 2019-12-09 11:28 | GI Progress Note ---
Assessment/Plan Problems: (1) Elevated LFTs ICD Codes: R94.5 - Abnormal results of liver function studies SNOMED: 923089239, 660898908 (2) Biliary obstruction ICD Codes: K83.1 - Obstruction of bile duct SNOMED: 606718095 (3) Cholestasis ICD Codes: K83.1 - Obstruction of bile duct SNOMED: 94256460 (4) Hyperbilirubinemia ICD Codes: E80.6 - Other disorders of bilirubin metabolism SNOMED: 95603439 Status: unchanged Status Narrative Discussed with Dr. Escalante. Assessment/Plan This is a 89-year-old male patient that presented with hyperbilirubinemia with no transaminitis 2/2 to cholestasis vs biliary obstruction. abdominal US reviewed hepatitis panel negative GGT elevation MRCP unable to be done, patient becomes hypoxic ? cholestasis due to sepsis may need liver biopsy repeat labs pending swallow eval Avoid hepatotoxic's Repeat liver function test for tomorrow We will follow along on a daily basis with any additional recommendations The patient was seen and examined at bedside and all new and available data was reviewed in the patients chart. I agree with the above findings, impression and plan. (Patient seen earlier today. Signature stamp does not reflect patient encounter time.). - Bladimir Escalante MD Subjective Subjective SOB Objective Last 24 Hour Vital Signs Date Time Temp Pulse Resp B/P (MAP) Pulse Ox O2 Delivery O2 Flow Rate FiO2 12/09/19 08:41 96 Nasal Cannula 3.0 32 12/09/19 08:40 91 22 96 Nasal Cannula 3.0 32 12/09/19 08:00 97.3 83 22 108/62 (77) 98 12/09/19 08:00 Nasal Cannula 3.0 12/09/19 06:11 101 112/64 12/09/19 04:00 Nasal Cannula 3.0 12/09/19 04:00 88 12/09/19 04:00 98.1 89 21 110/58 (75) 99 12/09/19 00:00 Nasal Cannula 3.0 12/09/19 00:00 99 12/09/19 00:00 98.1 97 20 117/60 (79) 99 12/08/19 21:05 101 145/70 12/08/19 20:15 97 Nasal Cannula 3.0 32 12/08/19 20:15 85 20 97 Nasal Cannula 3.0 32 12/08/19 20:00 98.1 88 23 107/60 (76) 99 12/08/19 20:00 86 12/08/19 20:00 Nasal Cannula 3.0 12/08/19 16:00 87 12/08/19 16:00 97.5 88 22 100/53 (69) 99 12/08/19 16:00 Nasal Cannula 3.0 12/08/19 15:16 91 105/77 12/08/19 12:00 Nasal Cannula 3.0 12/08/19 12:00 98.8 91 22 105/77 (86) 91 12/08/19 12:00 87 Intake and Output 12/08/19 12/09/19 19:00 07:00 Intake Total 440 ml 610.0 ml Output Total 900 ml 900 ml Balance -460 ml -290.0 ml Intake Oral 190 ml IV Total 250 ml 610.0 ml Output Urine Total 900 ml 900 ml Laboratory Tests Test 12/09/19 04:00 White Blood Count 14.1 K/UL (4.8-10.8) H Red Blood Count 3.93 M/UL (4.70-6.10) L Hemoglobin 12.3 G/DL (14.2-18.0) L Hematocrit 36.4 % (42.0-52.0) L Mean Corpuscular Volume 93 FL (80-99) Mean Corpuscular Hemoglobin 31.3 PG (27.0-31.0) H Mean Corpuscular Hemoglobin Concent 33.8 G/DL (32.0-36.0) Red Cell Distribution Width 12.9 % (11.6-14.8) Platelet Count 128 K/UL (150-450) L Mean Platelet Volume 7.4 FL (6.5-10.1) Neutrophils (%) (Auto) % (45.0-75.0) Lymphocytes (%) (Auto) % (20.0-45.0) Monocytes (%) (Auto) % (1.0-10.0) Eosinophils (%) (Auto) % (0.0-3.0) Basophils (%) (Auto) % (0.0-2.0) Differential Total Cells Counted 100 Neutrophils % (Manual) 82 % (45-75) H Lymphocytes % (Manual) 12 % (20-45) L Monocytes % (Manual) 6 % (1-10) Eosinophils % (Manual) 0 % (0-3) Basophils % (Manual) 0 % (0-2) Band Neutrophils 0 % (0-8) Platelet Estimate Decreased L Platelet Morphology Normal Red Blood Cell Morphology Normal Sodium Level 153 MMOL/L (136-145) H Potassium Level 3.0 MMOL/L (3.5-5.1) L Chloride Level 116 MMOL/L (98-107) H Carbon Dioxide Level 27 MMOL/L (21-32) Anion Gap 10 mmol/L (5-15) Blood Urea Nitrogen 43 mg/dL (7-18) H Creatinine 1.9 MG/DL (0.55-1.30) H Estimat Glomerular Filtration Rate mL/min (>60) Glucose Level 159 MG/DL (74-106) H Calcium Level 8.5 MG/DL (8.5-10.1) Phosphorus Level 2.6 MG/DL (2.5-4.9) Magnesium Level 2.0 MG/DL (1.8-2.4) Total Bilirubin 8.2 MG/DL (0.2-1.0) H Direct Bilirubin 7.2 MG/DL (0.0-0.3) H Aspartate Amino Transf (AST/SGOT) 45 U/L (15-37) H Alanine Aminotransferase (ALT/SGPT) 33 U/L (12-78) Alkaline Phosphatase 213 U/L (46-116) H C-Reactive Protein, Quantitative 36.8 mg/dL (0.00-0.90) H Pro-B-Type Natriuretic Peptide 1268 pg/mL (0-125) H Total Protein 6.3 G/DL (6.4-8.2) L Albumin 1.7 G/DL (3.4-5.0) L Globulin 4.6 g/dL Albumin/Globulin Ratio 0.4 (1.0-2.7) L Height (Feet): 5 Height (Inches): 6.00 Weight (Pounds): 159 General Appearance: alert Cardiovascular: normal rate Respiratory/Chest: other - SOB Abdominal Exam: soft Demetrio Ash DISTRICT MANAGER Dec 09, 2019 11:28
[2019-12-09 12:00] VITALS: BP 104/56
--- NOTE | 2019-12-09 12:26 | Surgery Progress Note ---
Surgery Progress Note Subjective Additional Comments lft's worsening leukocytosis trending down no n/v/f/c Objective Last 24 Hour Vital Signs Date Time Temp Pulse Resp B/P (MAP) Pulse Ox O2 Delivery O2 Flow Rate FiO2 12/09/19 08:41 96 Nasal Cannula 3.0 32 12/09/19 08:40 91 22 96 Nasal Cannula 3.0 32 12/09/19 08:00 97.3 83 22 108/62 (77) 98 12/09/19 08:00 Nasal Cannula 3.0 12/09/19 06:11 101 112/64 12/09/19 04:00 Nasal Cannula 3.0 12/09/19 04:00 88 12/09/19 04:00 98.1 89 21 110/58 (75) 99 12/09/19 00:00 Nasal Cannula 3.0 12/09/19 00:00 99 12/09/19 00:00 98.1 97 20 117/60 (79) 99 12/08/19 21:05 101 145/70 12/08/19 20:15 97 Nasal Cannula 3.0 32 12/08/19 20:15 85 20 97 Nasal Cannula 3.0 32 12/08/19 20:00 98.1 88 23 107/60 (76) 99 12/08/19 20:00 86 12/08/19 20:00 Nasal Cannula 3.0 12/08/19 16:00 87 12/08/19 16:00 97.5 88 22 100/53 (69) 99 12/08/19 16:00 Nasal Cannula 3.0 12/08/19 15:16 91 105/77 I&O Intake and Output 12/08/19 12/09/19 19:00 07:00 Intake Total 440 ml 610.0 ml Output Total 900 ml 900 ml Balance -460 ml -290.0 ml Intake Oral 190 ml IV Total 250 ml 610.0 ml Output Urine Total 900 ml 900 ml Dressing: other Wound: other Drains: other Cardiovascular: RSR Respiratory: decreased breath sounds Abdomen: soft, present bowel sounds, non-distended Extremities: no cyanosis Laboratory Tests Test 12/09/19 04:00 White Blood Count 14.1 K/UL (4.8-10.8) H Red Blood Count 3.93 M/UL (4.70-6.10) L Hemoglobin 12.3 G/DL (14.2-18.0) L Hematocrit 36.4 % (42.0-52.0) L Mean Corpuscular Volume 93 FL (80-99) Mean Corpuscular Hemoglobin 31.3 PG (27.0-31.0) H Mean Corpuscular Hemoglobin Concent 33.8 G/DL (32.0-36.0) Red Cell Distribution Width 12.9 % (11.6-14.8) Platelet Count 128 K/UL (150-450) L Mean Platelet Volume 7.4 FL (6.5-10.1) Neutrophils (%) (Auto) % (45.0-75.0) Lymphocytes (%) (Auto) % (20.0-45.0) Monocytes (%) (Auto) % (1.0-10.0) Eosinophils (%) (Auto) % (0.0-3.0) Basophils (%) (Auto) % (0.0-2.0) Differential Total Cells Counted 100 Neutrophils % (Manual) 82 % (45-75) H Lymphocytes % (Manual) 12 % (20-45) L Monocytes % (Manual) 6 % (1-10) Eosinophils % (Manual) 0 % (0-3) Basophils % (Manual) 0 % (0-2) Band Neutrophils 0 % (0-8) Platelet Estimate Decreased L Platelet Morphology Normal Red Blood Cell Morphology Normal Sodium Level 153 MMOL/L (136-145) H Potassium Level 3.0 MMOL/L (3.5-5.1) L Chloride Level 116 MMOL/L (98-107) H Carbon Dioxide Level 27 MMOL/L (21-32) Anion Gap 10 mmol/L (5-15) Blood Urea Nitrogen 43 mg/dL (7-18) H Creatinine 1.9 MG/DL (0.55-1.30) H Estimat Glomerular Filtration Rate mL/min (>60) Glucose Level 159 MG/DL (74-106) H Calcium Level 8.5 MG/DL (8.5-10.1) Phosphorus Level 2.6 MG/DL (2.5-4.9) Magnesium Level 2.0 MG/DL (1.8-2.4) Total Bilirubin 8.2 MG/DL (0.2-1.0) H Direct Bilirubin 7.2 MG/DL (0.0-0.3) H Aspartate Amino Transf (AST/SGOT) 45 U/L (15-37) H Alanine Aminotransferase (ALT/SGPT) 33 U/L (12-78) Alkaline Phosphatase 213 U/L (46-116) H C-Reactive Protein, Quantitative 36.8 mg/dL (0.00-0.90) H Pro-B-Type Natriuretic Peptide 1268 pg/mL (0-125) H Total Protein 6.3 G/DL (6.4-8.2) L Albumin 1.7 G/DL (3.4-5.0) L Globulin 4.6 g/dL Albumin/Globulin Ratio 0.4 (1.0-2.7) L Plan Problems: (1) Sepsis Assessment & Plan: 89-year-old male with leukocytosis, fevers, tachycardia, abnormal labs. Abdominal ultrasound nondiagnostic MRCP pending - eval for ERCP given condition appreciate GI input in discussion with GI likely believed to be related to hepatic insufficiency Continue IV antibiotics per infectious disease No acute surgical invention planned IV fluids Trend labs Resuscitation We will follow with recommendations Thank you for let me participate in patient's care (2) Biliary obstruction Assessment & Plan: Findings: The study was limited due to bowel gas body habitus. The liver is mildly heterogeneous with questionable surface nodularity. Doppler interrogation of the main portal vein shows patency with hepatopedal, monophasic flow. There is no biliary ductal dilatation identified. Gallbladder is grossly unremarkable. There demonstrated part of the pancreas, aorta and IVC show no obvious abnormalities. The structures are poorly seen. Both kidneys are poorly seen. There is no obvious hydronephrosis. IMPRESSION: No acute findings Very limited study Gallbladder is distended, but there are no gallstones and no wall thickening demonstrated. Negative for dilated bile ducts Equivocally mildly increased renal echogenicity, if real could indicate medical renal disease. Negative for evidence of hydronephrosis (3) Elevated LFTs Ajit Mcnulty Dec 09, 2019 12:26
--- NOTE | 2019-12-09 12:27 | NUR ---
12/09...CONCERNING MRCP, CHECKED ON PT AT 11:00. J[place] GRAHAM STATED PT IS UNSTABLE WITH RESPIRATORY DISTRESS. PREVIOUSLY STATED, PT O2 SATS KEPT FALLING WHEN WE ATTEMPTED TO SCAN THE PT WHEN HE WAS LAYING FLAT, J[place] PICKENS OBSERVED WHILE IN MRI DEPT. DISCUSSED THE SITUATION WITH BLACK FAROOQ IN PERSON TODAY, SO HE IS AWARE. TJB 12:27
--- NOTE | 2019-12-09 13:37 | NUR ---
[employer] SUPER[employer] FURNACE TENDER SI: BILIARY OBSTRUCTION,PNA T. 98.9 HR 85 RR 18 B/P 104/56 3L NC O2 SAT @ 98% WBC 14.1 NA 153 K 3.0 BUN 43 CR 1.9 AST 45 ALK PHOS 233 BNP 1268 ABD US+Limited exam, with nonvisualization of the left hepatic lobe, pancreas,AND ABDOMINAL AORTA. IS: IVF D5 @ 100ML/HR ZOSYN IV ALB HHN PROTONIX STEP DOWN STATUS
--- NOTE | 2019-12-09 15:18 | NUR ---
ST NOTES: SWALLOW STATUS: PER NURSE NOTES: PT HAVING RESPIRATORY DISTRESS DURING LUCIO MAIL ORDER BILLER WAS FEEDING THE PATIENT,STOPPED FEEDING THE AND PLACED A TELEPHONE CALL TO DR PEREZ AND MADE AWARE & NOTIFIED REGARDING PT HAD A RESPIRATORY DISTRESS AND UNABLE TO LAYING FLAT AND PROVIDE ORAL SUCTIONING .PT SEEMS BETTER AFTER PROVING ORAL SUCTIONING. WILL CONT TO MONITOR. PATIENT IS NOW NPO. UNABLE TO COMPLETE MOD BARIUM SWALLOW TODAY BUT PATIENT APPEARS AT HIGH RISK FOR ASPIRATION EVEN ON LOWEST DYSPHAGIA DIET OF LIQUIFIED PUREED LIKE NECTAR THICK LIQUIDS TSP ONLY. PLAN: CONSIDER LONGER TERM NONORAL FEEDINGS (PEG) SINCE PATIENT IS NOT RECEPTIVE TO NGT PLACEMENT. DR CHUA TO TALK TO FAMILY ABOUT PEG AND ORAL GRATIFICATION AFTER PEG PLACEMENT AND ONLY AFTER HE HAS A MODIFIED BARIUM SWALLOW STUDY INPATIENT OR OUTPATIENT IF HE IS D/C TO SNF. PER RNRAMIREZ, HE DID TALK TO THE FAMILY EMPHASIZING NEED FOR PEG AND LATER ORAL GRATIFICATION. CONTINUE WITH ORAL CARE AND SUCTION PRN
[2019-12-09 16:00] VITALS: BP 129/87
--- NOTE | 2019-12-09 16:01 | Hematology/Onc Progress Note ---
Assessment/Plan Assessment/Plan Assessment and Recs: # Thrombocytopenia -- is likely related to sepsis from pna, currently in 100- 150 range --> smear has been ordered and reviewed --> meds are noted --> okay to continue on abx --> plt trend 169-->148k-->141-->128 --> hold off steriods --> hep and hiv pend --> us abd negative for cirrhosis/hsm # Leukocytosis due to pna/lactic acidosis --> as per above --> smear has been reviewed --> as per id, on vanc/zosyn-->zosyn --> wbc trend: 16.7 -->14.1 # Anemia of chronic disease --> in this case due to hemodilution --> hgb trend: 12.3 # Hyperbilirubinemia --> gi aware as per their recs -> may need ercp/mrcp as per gi # Cholestasis # Biliary obstruction # Elevated LFTs # PNA/Sepsis Appreciate consultation and will tasha Rn. Subjective Allergies: Coded Allergies: No Known Allergies (Unverified , 03/19/17) Subjective 12/08: awake, no acute events, wbc 16.7, afebrile, on abx, us abd negative 12/09: no acute distress, lft's worsening, wbc improving, nc 3l Objective Objective Current Medications Medications (Trade) Dose Ordered Sig/Filemon Route PRN Reason Start Time Stop Time Status Last Admin Dose Admin Acetaminophen (Tylenol) 325 mg Q6H PRN ORAL Mild Pain/Temp > 100.5 12/07/19 09:30 01/06/20 09:29 Albuterol/ Ipratropium (Albuterol/ Ipratropium) 3 ml Q4H PRN HHN Shortness of Breath 12/05/19 23:15 12/10/19 23:14 12/07/19 12:02 Barium Sulfate (Varibar Honey) 250 ml NOW PRN MC RAD 12/07/19 14:45 12/10/19 14:35 Barium Sulfate (Varibar [place] [employer]) 240 ml NOW PRN MC RAD 12/07/19 14:45 12/10/19 14:35 Barium Sulfate (Varibar Pudding) 230 ml NOW PRN MC RAD 12/07/19 14:45 12/10/19 14:35 Dextrose 1,000 ml @ 100 mls/hr Q10H IV 12/09/19 08:30 01/08/20 08:29 12/09/19 10:13 Dextrose (Dextrose 50%) 25 ml Q30M PRN IV Hypoglycemia 12/06/19 11:45 01/05/20 11:44 Dextrose (Dextrose 50%) 50 ml Q30M PRN IV Hypoglycemia 12/06/19 11:45 01/05/20 11:44 Diltiazem HCl (Cardizem) 30 mg EVERY 8 HOURS ORAL 12/06/19 14:00 01/05/20 13:59 12/09/19 15:05 Docusate Sodium (Colace) 100 mg TID ORAL 12/09/19 13:00 01/05/20 17:59 12/09/19 10:11 Insulin Aspart (NovoLOG) BEFORE MEALS AND HS SUBQ 12/06/19 16:30 01/05/20 16:29 12/09/19 13:15 Pantoprazole (Protonix) 40 mg BID ORAL 12/09/19 18:00 01/05/20 14:44 12/09/19 10:12 Piperacillin Sod/ Tazobactam Sod 3.375 gm/Sodium Chloride 110 ml @ 27.5 mls/hr EVERY 8 HOURS IVPB 12/06/19 14:00 12/11/19 13:59 12/09/19 15:14 Potassium Chloride (K-Dur) 40 meq TWICE A DAY ORAL 12/09/19 10:00 01/08/20 09:59 12/09/19 13:21 Risperidone (RisperDAL) 0.5 mg Q12HR ORAL 12/06/19 09:00 01/05/20 08:59 12/09/19 10:12 Tamsulosin HCl (Flomax) 0.4 mg BEDTIME ORAL 12/06/19 21:00 01/05/20 20:59 12/08/19 20:32 Last 24 Hour Vital Signs Date Time Temp Pulse Resp B/P (MAP) Pulse Ox O2 Delivery O2 Flow Rate FiO2 12/09/19 15:05 95 123/54 12/09/19 12:00 98.9 85 18 104/56 (72) 97 12/09/19 12:00 Nasal Cannula 3.0 12/09/19 08:41 96 Nasal Cannula 3.0 32 12/09/19 08:40 91 22 96 Nasal Cannula 3.0 32 12/09/19 08:00 87 12/09/19 08:00 97.3 83 22 108/62 (77) 98 12/09/19 08:00 Nasal Cannula 3.0 12/09/19 06:11 101 112/64 12/09/19 04:00 Nasal Cannula 3.0 12/09/19 04:00 88 12/09/19 04:00 98.1 89 21 110/58 (75) 99 12/09/19 00:00 Nasal Cannula 3.0 12/09/19 00:00 99 12/09/19 00:00 98.1 97 20 117/60 (79) 99 12/08/19 21:05 101 145/70 12/08/19 20:15 97 Nasal Cannula 3.0 32 12/08/19 20:15 85 20 97 Nasal Cannula 3.0 32 12/08/19 20:00 98.1 88 23 107/60 (76) 99 12/08/19 20:00 86 12/08/19 20:00 Nasal Cannula 3.0 12/08/19 16:00 87 12/08/19 16:00 97.5 88 22 100/53 (69) 99 12/08/19 16:00 Nasal Cannula 3.0 12/08/19 15:16 91 105/77 12/08/19 12:00 Nasal Cannula 3.0 12/08/19 12:00 98.8 91 22 105/77 (86) 91 12/08/19 12:00 87 12/08/19 09:04 95 19 94 Nasal Cannula 3.0 32 12/08/19 08:00 Nasal Cannula 3.0 12/08/19 08:00 102 12/08/19 08:00 97.9 100 22 103/54 (70) 94 12/08/19 05:54 106 107/51 12/08/19 04:00 99 12/08/19 04:00 99.0 103 21 104/45 (64) 99 12/08/19 04:00 Nasal Cannula 3.0 12/08/19 00:00 104 12/08/19 00:00 Nasal Cannula 3.0 12/08/19 00:00 99.0 104 22 101/51 (68) 99 12/07/19 21:29 106 118/60 12/07/19 20:00 99.6 94 23 109/51 (70) 98 12/07/19 20:00 93 12/07/19 20:00 Nasal Cannula 3.0 12/07/19 16:00 Nasal Cannula 3.0 12/07/19 16:00 98.4 96 25 115/57 (76) 97 Intake and Output 12/08/19 12/09/19 19:00 07:00 Intake Total 440 ml 610.0 ml Output Total 900 ml 900 ml Balance -460 ml -290.0 ml Intake Oral 190 ml IV Total 250 ml 610.0 ml Output Urine Total 900 ml 900 ml Labs Test 12/06/19 19:50 12/07/19 01:00 12/07/19 04:30 12/08/19 04:30 Random Vancomycin Level 4.2 ug/mL Hepatitis A IgM Antibody Negative (Negative) Hepatitis B Surface Antigen Negative (Negative) Hepatitis B Core IgM Antibody Negative (Negative) Hepatitis C Antibody 0.3 s/co ratio (0.0-0.9) HIV (1&2) Antibody Rapid Negative (NEGATIVE) Cortisol AM Sample 17.9 UG/DL White Blood Count 15.2 K/UL (4.8-10.8) 16.7 K/UL (4.8-10.8) Red Blood Count 4.16 M/UL (4.70-6.10) 4.05 M/UL (4.70-6.10) Hemoglobin 13.0 G/DL (14.2-18.0) 12.6 G/DL (14.2-18.0) Hematocrit 38.2 % (42.0-52.0) 37.3 % (42.0-52.0) Mean Corpuscular Volume 92 FL (80-99) 92 FL (80-99) Mean Corpuscular Hemoglobin 31.3 PG (27.0-31.0) 31.1 PG (27.0-31.0) Mean Corpuscular Hemoglobin Concent 34.1 G/DL (32.0-36.0) 33.7 G/DL (32.0-36.0) Red Cell Distribution Width 12.3 % (11.6-14.8) 12.7 % (11.6-14.8) Platelet Count 150 K/UL (150-450) 141 K/UL (150-450) Mean Platelet Volume 7.0 FL (6.5-10.1) 6.9 FL (6.5-10.1) Neutrophils (%) (Auto) % (45.0-75.0) % (45.0-75.0) Lymphocytes (%) (Auto) % (20.0-45.0) % (20.0-45.0) Monocytes (%) (Auto) % (1.0-10.0) % (1.0-10.0) Eosinophils (%) (Auto) % (0.0-3.0) % (0.0-3.0) Basophils (%) (Auto) % (0.0-2.0) % (0.0-2.0) Differential Total Cells Counted 100 100 Neutrophils % (Manual) 93 % (45-75) 88 % (45-75) Lymphocytes % (Manual) 4 % (20-45) 8 % (20-45) Monocytes % (Manual) 3 % (1-10) 4 % (1-10) Eosinophils % (Manual) 0 % (0-3) 0 % (0-3) Basophils % (Manual) 0 % (0-2) 0 % (0-2) Band Neutrophils 0 % (0-8) 0 % (0-8) Platelet Estimate Adequate Decreased Platelet Morphology Normal Normal Red Blood Cell Morphology Normal Normal Sodium Level 147 MMOL/L (136-145) 150 MMOL/L (136-145) Potassium Level 3.3 MMOL/L (3.5-5.1) 3.2 MMOL/L (3.5-5.1) Chloride Level 113 MMOL/L (98-107) 114 MMOL/L (98-107) Carbon Dioxide Level 27 MMOL/L (21-32) 26 MMOL/L (21-32) Anion Gap 7 mmol/L (5-15) 11 mmol/L (5-15) Blood Urea Nitrogen 33 mg/dL (7-18) 41 mg/dL (7-18) Creatinine 1.9 MG/DL (0.55-1.30) 2.0 MG/DL (0.55-1.30) Estimat Glomerular Filtration Rate mL/min (>60) mL/min (>60) Glucose Level 192 MG/DL (74-106) 159 MG/DL (74-106) Hemoglobin A1c 7.2 % (4.3-6.0) Uric Acid 4.2 MG/DL (2.6-7.2) 3.7 MG/DL (2.6-7.2) Calcium Level 8.2 MG/DL (8.5-10.1) 8.3 MG/DL (8.5-10.1) Phosphorus Level 2.0 MG/DL (2.5-4.9) 3.3 MG/DL (2.5-4.9) Magnesium Level 1.8 MG/DL (1.8-2.4) 1.9 MG/DL (1.8-2.4) Iron Level 6 ug/dL (50-175) Total Iron Binding Capacity 152 ug/dL (250-450) Percent Iron Saturation 4 % (15-50) Unsaturated Iron Binding 146 ug/dL (112-346) Ferritin 274 NG/ML (8-388) Total Bilirubin 5.7 MG/DL (0.2-1.0) 7.2 MG/DL (0.2-1.0) Direct Bilirubin 5.0 MG/DL (0.0-0.3) 6.2 MG/DL (0.0-0.3) Gamma Glutamyl Transpeptidase 130 U/L (5-85) Aspartate Amino Transf (AST/SGOT) 45 U/L (15-37) 38 U/L (15-37) Alanine Aminotransferase (ALT/SGPT) 52 U/L (12-78) 36 U/L (12-78) Alkaline Phosphatase 244 U/L (46-116) 214 U/L (46-116) Troponin I 0.000 ng/mL (0.000-0.056) C-Reactive Protein, Quantitative 41.2 mg/dL (0.00-0.90) 45.7 mg/dL (0.00-0.90) Pro-B-Type Natriuretic Peptide 1173 pg/mL (0-125) 1227 pg/mL (0-125) Total Protein 6.4 G/DL (6.4-8.2) 6.2 G/DL (6.4-8.2) Albumin 1.9 G/DL (3.4-5.0) 1.7 G/DL (3.4-5.0) Globulin 4.5 g/dL 4.5 g/dL Albumin/Globulin Ratio 0.4 (1.0-2.7) 0.4 (1.0-2.7) Triglycerides Level 80 MG/DL (30-150) Cholesterol Level 73 MG/DL (< 200) LDL Cholesterol 40 mg/dL (<100) HDL Cholesterol 13 MG/DL (40-60) Cholesterol/HDL Ratio 5.6 (3.3-4.4) Vitamin B12 Level 227 PG/ML (193-986) Folate 9.0 NG/ML (8.6-58.9) Thyroid Stimulating Hormone (TSH) 0.183 uiU/mL (0.358-3.740) Erythrocyte Sedimentation Rate 84 MM/HR (0-20) Prothrombin Time 12.0 SEC (9.30-11.50) Prothromb Time International Ratio 1.1 (0.9-1.1) Activated Partial Thromboplast Time 32 SEC (23-33) Lactic Acid Level 1.50 mmol/L (0.4-2.0) Amylase Level 86 U/L (25-115) Lipase 272 U/L (73-393) Test 12/09/19 04:00 White Blood Count 14.1 K/UL (4.8-10.8) Red Blood Count 3.93 M/UL (4.70-6.10) Hemoglobin 12.3 G/DL (14.2-18.0) Hematocrit 36.4 % (42.0-52.0) Mean Corpuscular Volume 93 FL (80-99) Mean Corpuscular Hemoglobin 31.3 PG (27.0-31.0) Mean Corpuscular Hemoglobin Concent 33.8 G/DL (32.0-36.0) Red Cell Distribution Width 12.9 % (11.6-14.8) Platelet Count 128 K/UL (150-450) Mean Platelet Volume 7.4 FL (6.5-10.1) Neutrophils (%) (Auto) % (45.0-75.0) Lymphocytes (%) (Auto) % (20.0-45.0) Monocytes (%) (Auto) % (1.0-10.0) Eosinophils (%) (Auto) % (0.0-3.0) Basophils (%) (Auto) % (0.0-2.0) Differential Total Cells Counted 100 Neutrophils % (Manual) 82 % (45-75) Lymphocytes % (Manual) 12 % (20-45) Monocytes % (Manual) 6 % (1-10) Eosinophils % (Manual) 0 % (0-3) Basophils % (Manual) 0 % (0-2) Band Neutrophils 0 % (0-8) Platelet Estimate Decreased Platelet Morphology Normal Red Blood Cell Morphology Normal Sodium Level 153 MMOL/L (136-145) Potassium Level 3.0 MMOL/L (3.5-5.1) Chloride Level 116 MMOL/L (98-107) Carbon Dioxide Level 27 MMOL/L (21-32) Anion Gap 10 mmol/L (5-15) Blood Urea Nitrogen 43 mg/dL (7-18) Creatinine 1.9 MG/DL (0.55-1.30) Estimat Glomerular Filtration Rate mL/min (>60) Glucose Level 159 MG/DL (74-106) Calcium Level 8.5 MG/DL (8.5-10.1) Phosphorus Level 2.6 MG/DL (2.5-4.9) Magnesium Level 2.0 MG/DL (1.8-2.4) Total Bilirubin 8.2 MG/DL (0.2-1.0) Direct Bilirubin 7.2 MG/DL (0.0-0.3) Aspartate Amino Transf (AST/SGOT) 45 U/L (15-37) Alanine Aminotransferase (ALT/SGPT) 33 U/L (12-78) Alkaline Phosphatase 213 U/L (46-116) C-Reactive Protein, Quantitative 36.8 mg/dL (0.00-0.90) Pro-B-Type Natriuretic Peptide 1268 pg/mL (0-125) Total Protein 6.3 G/DL (6.4-8.2) Albumin 1.7 G/DL (3.4-5.0) Globulin 4.6 g/dL Albumin/Globulin Ratio 0.4 (1.0-2.7) Height (Feet): 5 Height (Inches): 6.00 Weight (Pounds): 159 Objective Physical Exam Vitals: noted General: no apparent distress HEENT: supple Resp: normal breath sounds, no respiratory distress, NC+ Cardiovascular: normal rate Gastrointestinal: normal inspection, non tender, soft, normal bowel sounds, non -distended Skin: normal inspection, normal color, no rash, warm/dry, palpation normal, well hydrated Lymphatic: normal inspection, no adenopathy Damian Batres MD Dec 09, 2019 16:01
--- NOTE | 2019-12-09 16:15 | Pulmonology Progress Note ---
Assessment/Plan Assessment/Plan IMPRESSION: 1. Left lower lobe pneumonia. Reviewed CXR with radiology; no definite pneumonia seen. 2. Sepsis with lactic acidemia. 3. Acute renal insufficiency. 4. History of CHF. 5. Dementia. 6. Jaundice; has intra-abdominal/biliary issue; GI and surgery following DISCUSSION: Fluid resuscitation. Continue broad-spectrum antibiotics. I will follow carefully as respiratory erp implementation consultant. GI/surgery following Kevin Lincoln M.D. Subjective Interval Events: Noted to be choking on food; now npo Constitutional: Reports: no symptoms HEENT: Repors: no symptoms Respiratory: Reports: no symptoms Cardiovascular: Reports: no symptoms Gastrointestinal/Abdominal: Reports: no symptoms Allergies: Coded Allergies: No Known Allergies (Unverified , 03/19/17) Objective Last 24 Hour Vital Signs Date Time Temp Pulse Resp B/P (MAP) Pulse Ox O2 Delivery O2 Flow Rate FiO2 12/09/19 15:05 95 123/54 12/09/19 12:00 98.9 85 18 104/56 (72) 97 12/09/19 12:00 Nasal Cannula 3.0 12/09/19 08:41 96 Nasal Cannula 3.0 32 12/09/19 08:40 91 22 96 Nasal Cannula 3.0 32 12/09/19 08:00 87 12/09/19 08:00 97.3 83 22 108/62 (77) 98 12/09/19 08:00 Nasal Cannula 3.0 12/09/19 06:11 101 112/64 12/09/19 04:00 Nasal Cannula 3.0 12/09/19 04:00 88 12/09/19 04:00 98.1 89 21 110/58 (75) 99 12/09/19 00:00 Nasal Cannula 3.0 12/09/19 00:00 99 12/09/19 00:00 98.1 97 20 117/60 (79) 99 12/08/19 21:05 101 145/70 12/08/19 20:15 97 Nasal Cannula 3.0 32 12/08/19 20:15 85 20 97 Nasal Cannula 3.0 32 12/08/19 20:00 98.1 88 23 107/60 (76) 99 12/08/19 20:00 86 12/08/19 20:00 Nasal Cannula 3.0 Intake and Output 12/08/19 12/09/19 19:00 07:00 Intake Total 440 ml 610.0 ml Output Total 900 ml 900 ml Balance -460 ml -290.0 ml Intake Oral 190 ml IV Total 250 ml 610.0 ml Output Urine Total 900 ml 900 ml General Appearance: no acute distress HEENT: normocephalic Respiratory/Chest: chest wall non-tender, decreased breath sounds Cardiovascular: normal peripheral pulses, normal rate Abdomen: normal bowel sounds Extremities: no cyanosis Laboratory Tests 12/09/19 04:00: White Blood Count 14.1H, Red Blood Count 3.93L, Hemoglobin 12.3L, Hematocrit 36.4L, Mean Corpuscular Volume 93, Mean Corpuscular Hemoglobin 31.3H, Mean Corpuscular Hemoglobin Concent 33.8, Red Cell Distribution Width 12.9, Platelet Count 128L, Mean Platelet Volume 7.4, Neutrophils (%) (Auto) , Lymphocytes (%) ( Auto) , Monocytes (%) (Auto) , Eosinophils (%) (Auto) , Basophils (%) (Auto) , Differential Total Cells Counted 100, Neutrophils % (Manual) 82H, Lymphocytes % (Manual) 12L, Monocytes % (Manual) 6, Eosinophils % (Manual) 0, Basophils % ( Manual) 0, Band Neutrophils 0, Platelet Estimate DecreasedL, Platelet Morphology Normal, Red Blood Cell Morphology Normal, Sodium Level 153H, Potassium Level 3.0L, Chloride Level 116H, Carbon Dioxide Level 27, Anion Gap 10 , Blood Urea Nitrogen 43H, Creatinine 1.9H, Estimat Glomerular Filtration Rate , Glucose Level 159H, Calcium Level 8.5, Phosphorus Level 2.6, Magnesium Level 2.0, Total Bilirubin 8.2H, Direct Bilirubin 7.2H, Aspartate Amino Transf (AST/ SGOT) 45H, Alanine Aminotransferase (ALT/SGPT) 33, Alkaline Phosphatase 213H, C- Reactive Protein, Quantitative 36.8H, Pro-B-Type Natriuretic Peptide 1268H, Total Protein 6.3L, Albumin 1.7L, Globulin 4.6, Albumin/Globulin Ratio 0.4L Current Medications Medications (Trade) Dose Ordered Sig/Filemon Route PRN Reason Start Time Stop Time Status Last Admin Dose Admin Acetaminophen (Tylenol) 325 mg Q6H PRN ORAL Mild Pain/Temp > 100.5 12/07/19 09:30 01/06/20 09:29 Albuterol/ Ipratropium (Albuterol/ Ipratropium) 3 ml Q4H PRN HHN Shortness of Breath 12/05/19 23:15 12/10/19 23:14 12/07/19 12:02 Barium Sulfate (Varibar Honey) 250 ml NOW PRN MC RAD 12/07/19 14:45 12/10/19 14:35 Barium Sulfate (Varibar [place]) 240 ml NOW PRN MC RAD 12/07/19 14:45 12/10/19 14:35 Barium Sulfate (Varibar Pudding) 230 ml NOW PRN MC RAD 12/07/19 14:45 12/10/19 14:35 Dextrose 1,000 ml @ 100 mls/hr Q10H IV 12/09/19 08:30 01/08/20 08:29 12/09/19 10:13 Dextrose (Dextrose 50%) 25 ml Q30M PRN IV Hypoglycemia 12/06/19 11:45 01/05/20 11:44 Dextrose (Dextrose 50%) 50 ml Q30M PRN IV Hypoglycemia 12/06/19 11:45 01/05/20 11:44 Diltiazem HCl (Cardizem) 30 mg EVERY 8 HOURS ORAL 12/06/19 14:00 01/05/20 13:59 12/09/19 15:05 Docusate Sodium (Colace) 100 mg TID ORAL 12/09/19 13:00 01/05/20 17:59 12/09/19 10:11 Insulin Aspart (NovoLOG) BEFORE MEALS AND HS SUBQ 12/06/19 16:30 01/05/20 16:29 12/09/19 13:15 Pantoprazole (Protonix) 40 mg BID ORAL 12/09/19 18:00 01/05/20 14:44 12/09/19 10:12 Piperacillin Sod/ Tazobactam Sod 3.375 gm/Sodium Chloride 110 ml @ 27.5 mls/hr EVERY 8 HOURS IVPB 12/06/19 14:00 12/11/19 13:59 12/09/19 15:14 Potassium Chloride (K-Dur) 40 meq TWICE A DAY ORAL 12/09/19 10:00 01/08/20 09:59 12/09/19 13:21 Risperidone (RisperDAL) 0.5 mg Q12HR ORAL 12/06/19 09:00 01/05/20 08:59 12/09/19 10:12 Tamsulosin HCl (Flomax) 0.4 mg BEDTIME ORAL 12/06/19 21:00 01/05/20 20:59 12/08/19 20:32 Kevin Lincoln MD Dec 09, 2019 16:15
--- NOTE | 2019-12-09 16:29 | Cardiac Electrophysiology PN ---
Assessment/Plan Assessment/Plan 1. Hypertension. On Cardizem 30 mg every 8 hours. Echo Nl EF 2. Shortness of breath secondary to pneumonia. 3. Nonsustained VT 5 beats. K was replaced. Nl EF 4. Pneumonia, on vancomycin and Zosyn per Dr. Barth. 5. Renal failure. 6. Lactic acidosis. 7. Hyperbilirubinemia with total bilirubin of 6.6, direct bilirubin of 5.5. Fu Dr Escalante MRI abdomen couldn't be done as unable to lay flat 8. Renal failure with BUN of 35 and creatinine of 2.0. 9. Dysphagia. May need PEG 10. Dementia. DW RN Subjective Subjective In SR. RN at bedside.Coughs when eating despite soup diet. Had 5 beats of VT. Objective Last 24 Hour Vital Signs Date Time Temp Pulse Resp B/P (MAP) Pulse Ox O2 Delivery O2 Flow Rate FiO2 12/09/19 15:05 95 123/54 12/09/19 12:00 98.9 85 18 104/56 (72) 97 12/09/19 12:00 Nasal Cannula 3.0 12/09/19 08:41 96 Nasal Cannula 3.0 32 12/09/19 08:40 91 22 96 Nasal Cannula 3.0 32 12/09/19 08:00 87 12/09/19 08:00 97.3 83 22 108/62 (77) 98 12/09/19 08:00 Nasal Cannula 3.0 12/09/19 06:11 101 112/64 12/09/19 04:00 Nasal Cannula 3.0 12/09/19 04:00 88 12/09/19 04:00 98.1 89 21 110/58 (75) 99 12/09/19 00:00 Nasal Cannula 3.0 12/09/19 00:00 99 12/09/19 00:00 98.1 97 20 117/60 (79) 99 12/08/19 21:05 101 145/70 12/08/19 20:15 97 Nasal Cannula 3.0 32 12/08/19 20:15 85 20 97 Nasal Cannula 3.0 32 12/08/19 20:00 98.1 88 23 107/60 (76) 99 12/08/19 20:00 86 12/08/19 20:00 Nasal Cannula 3.0 Intake and Output 12/08/19 12/09/19 18:59 06:59 Intake Total 390 ml 660.0 ml Output Total 900 ml 900 ml Balance -510 ml -240.0 ml Intake Oral 190 ml IV Total 200 ml 660.0 ml Output Urine Total 900 ml 900 ml Laboratory Tests Test 12/09/19 04:00 White Blood Count 14.1 K/UL (4.8-10.8) H Red Blood Count 3.93 M/UL (4.70-6.10) L Hemoglobin 12.3 G/DL (14.2-18.0) L Hematocrit 36.4 % (42.0-52.0) L Mean Corpuscular Volume 93 FL (80-99) Mean Corpuscular Hemoglobin 31.3 PG (27.0-31.0) H Mean Corpuscular Hemoglobin Concent 33.8 G/DL (32.0-36.0) Red Cell Distribution Width 12.9 % (11.6-14.8) Platelet Count 128 K/UL (150-450) L Mean Platelet Volume 7.4 FL (6.5-10.1) Neutrophils (%) (Auto) % (45.0-75.0) Lymphocytes (%) (Auto) % (20.0-45.0) Monocytes (%) (Auto) % (1.0-10.0) Eosinophils (%) (Auto) % (0.0-3.0) Basophils (%) (Auto) % (0.0-2.0) Differential Total Cells Counted 100 Neutrophils % (Manual) 82 % (45-75) H Lymphocytes % (Manual) 12 % (20-45) L Monocytes % (Manual) 6 % (1-10) Eosinophils % (Manual) 0 % (0-3) Basophils % (Manual) 0 % (0-2) Band Neutrophils 0 % (0-8) Platelet Estimate Decreased L Platelet Morphology Normal Red Blood Cell Morphology Normal Sodium Level 153 MMOL/L (136-145) H Potassium Level 3.0 MMOL/L (3.5-5.1) L Chloride Level 116 MMOL/L (98-107) H Carbon Dioxide Level 27 MMOL/L (21-32) Anion Gap 10 mmol/L (5-15) Blood Urea Nitrogen 43 mg/dL (7-18) H Creatinine 1.9 MG/DL (0.55-1.30) H Estimat Glomerular Filtration Rate mL/min (>60) Glucose Level 159 MG/DL (74-106) H Calcium Level 8.5 MG/DL (8.5-10.1) Phosphorus Level 2.6 MG/DL (2.5-4.9) Magnesium Level 2.0 MG/DL (1.8-2.4) Total Bilirubin 8.2 MG/DL (0.2-1.0) H Direct Bilirubin 7.2 MG/DL (0.0-0.3) H Aspartate Amino Transf (AST/SGOT) 45 U/L (15-37) H Alanine Aminotransferase (ALT/SGPT) 33 U/L (12-78) Alkaline Phosphatase 213 U/L (46-116) H C-Reactive Protein, Quantitative 36.8 mg/dL (0.00-0.90) H Pro-B-Type Natriuretic Peptide 1268 pg/mL (0-125) H Total Protein 6.3 G/DL (6.4-8.2) L Albumin 1.7 G/DL (3.4-5.0) L Globulin 4.6 g/dL Albumin/Globulin Ratio 0.4 (1.0-2.7) L Objective HEAD AND NECK: Shows no JVD. LUNGS: Decreased breath sounds. CARDIOVASCULAR: Shows regular S1 and S2 with no gallop. ABDOMEN: Soft. EXTREMITIES: No pitting edema. Kyle Reynoso MD Dec 09, 2019 16:29
--- NOTE | 2019-12-09 19:25 | NUR ---
HAND-OFF: Report given to .SONDRA BERUMEN.
--- NOTE | 2019-12-09 19:30 | NUR ---
NURSE NOTES: Received report from SANTOS RN using SBAR. Patient is awake , but unable to communicate. on NC 3L with no SOB. O2 saturation is 95-98%. ST w/ 1st degree AVB. vss. Temp is 100.3F. cooling measure initiated.IV on RFA 22G and D5W at 100/hr running. no facial grimace or moaning noted.condom cath in place with dark kelvin. Bed in lowest position , bed alarm on.will continue to monitor patient closely.
[2019-12-09 20:00] VITALS: BP 115/60
--- NOTE | 2019-12-09 21:40 | General Progress Note ---
Assessment/Plan Problem List: (1) Sepsis ICD Codes: A41.9 - Sepsis, unspecified organism SNOMED: 00214910 Qualifiers: Qualified Codes: A41.9 - Sepsis, unspecified organism; R65.20 - Severe sepsis without septic shock; N17.9 - Acute kidney failure, unspecified (2) Alzheimer's dementia ICD Codes: G30.9 - Alzheimer's disease, unspecified; F02.80 - Dementia in other diseases classified elsewhere without behavioral disturbance SNOMED: 70518146 Qualifiers: Qualified Codes: G30.9 - Alzheimer's disease, unspecified; F02.80 - Dementia in other diseases classified elsewhere without behavioral disturbance (3) Elevated LFTs ICD Codes: R94.5 - Abnormal results of liver function studies SNOMED: 370412780, 452515387 (4) Cholestasis ICD Codes: K83.1 - Obstruction of bile duct SNOMED: 40247810 (5) Hyperbilirubinemia ICD Codes: E80.6 - Other disorders of bilirubin metabolism SNOMED: 20847485 (6) Left lower lobe pneumonia ICD Codes: J18.9 - Pneumonia, unspecified organism SNOMED: 048142964 Qualifiers: Qualified Codes: J18.9 - Pneumonia, unspecified organism (7) Renal failure (ARF), acute on chronic ICD Codes: N17.9 - Acute kidney failure, unspecified; N18.9 - Chronic kidney disease, unspecified SNOMED: 786623491 Qualifiers: Qualified Codes: N17.9 - Acute kidney failure, unspecified; N18.3 - Chronic kidney disease, stage 3 (moderate) Status: progressing, unchanged Assessment/Plan: aspiration risk? peg per dr kuo congested afebrile dm.elevated sugar Subjective ROS Limited/Unobtainable: Yes Allergies: Coded Allergies: No Known Allergies (Unverified , 03/19/17) Objective Last 24 Hour Vital Signs Date Time Temp Pulse Resp B/P (MAP) Pulse Ox O2 Delivery O2 Flow Rate FiO2 12/09/19 20:00 103 12/09/19 20:00 100.3 109 24 115/60 (78) 97 12/09/19 16:00 96 12/09/19 16:00 Nasal Cannula 3.0 12/09/19 16:00 98.9 101 18 129/87 (101) 94 12/09/19 15:05 95 123/54 12/09/19 12:00 83 12/09/19 12:00 98.9 85 18 104/56 (72) 97 12/09/19 12:00 Nasal Cannula 3.0 12/09/19 08:41 96 Nasal Cannula 3.0 32 12/09/19 08:40 91 22 96 Nasal Cannula 3.0 32 12/09/19 08:00 87 12/09/19 08:00 97.3 83 22 108/62 (77) 98 12/09/19 08:00 Nasal Cannula 3.0 12/09/19 06:11 101 112/64 12/09/19 04:00 Nasal Cannula 3.0 12/09/19 04:00 88 12/09/19 04:00 98.1 89 21 110/58 (75) 99 12/09/19 00:00 Nasal Cannula 3.0 12/09/19 00:00 99 12/09/19 00:00 98.1 97 20 117/60 (79) 99 Intake and Output 12/08/19 12/09/19 19:00 07:00 Intake Total 440 ml 610.0 ml Output Total 900 ml 900 ml Balance -460 ml -290.0 ml Intake Oral 190 ml IV Total 250 ml 610.0 ml Output Urine Total 900 ml 900 ml Laboratory Tests 12/09/19 04:00: White Blood Count 14.1H, Red Blood Count 3.93L, Hemoglobin 12.3L, Hematocrit 36.4L, Mean Corpuscular Volume 93, Mean Corpuscular Hemoglobin 31.3H, Mean Corpuscular Hemoglobin Concent 33.8, Red Cell Distribution Width 12.9, Platelet Count 128L, Mean Platelet Volume 7.4, Neutrophils (%) (Auto) , Lymphocytes (%) ( Auto) , Monocytes (%) (Auto) , Eosinophils (%) (Auto) , Basophils (%) (Auto) , Differential Total Cells Counted 100, Neutrophils % (Manual) 82H, Lymphocytes % (Manual) 12L, Monocytes % (Manual) 6, Eosinophils % (Manual) 0, Basophils % ( Manual) 0, Band Neutrophils 0, Platelet Estimate DecreasedL, Platelet Morphology Normal, Red Blood Cell Morphology Normal, Sodium Level 153H, Potassium Level 3.0L, Chloride Level 116H, Carbon Dioxide Level 27, Anion Gap 10 , Blood Urea Nitrogen 43H, Creatinine 1.9H, Estimat Glomerular Filtration Rate , Glucose Level 159H, Calcium Level 8.5, Phosphorus Level 2.6, Magnesium Level 2.0, Total Bilirubin 8.2H, Direct Bilirubin 7.2H, Aspartate Amino Transf (AST/ SGOT) 45H, Alanine Aminotransferase (ALT/SGPT) 33, Alkaline Phosphatase 213H, C- Reactive Protein, Quantitative 36.8H, Pro-B-Type Natriuretic Peptide 1268H, Total Protein 6.3L, Albumin 1.7L, Globulin 4.6, Albumin/Globulin Ratio 0.4L Height (Feet): 5 Height (Inches): 6.00 Weight (Pounds): 159 Cardiovascular: normal rate Respiratory/Chest: lungs clear Abdomen: soft Gurmeet Elizabeth MD Dec 09, 2019 21:40
[2019-12-09] MEDS: Tamsulosin 0.4mg cap ORAL SCH (22:49)
[2019-12-10] VITALS: BP 119/54
[2019-12-10] MEDS ORDERED: Acetaminophen 650 MG SUPP RECTAL PRN (00:15)
--- NOTE | 2019-12-10 02:00 | NUR ---
NURSE NOTES: Patient is sleeping with no acute distress noted. vss stable. Temp 99.9. cooling measure continued.ST with HR of 107. turned and repositioned. provided sponge bath.oral care done. no s/s of pain.
[2019-12-10 04:00] VITALS: BP 123/52
[2019-12-10 04:45] LABS: BASOPHILS % (AUTO) 0.3 % (0.0-2.0); EOSINOPHILS % (AUTO) 0.6 % (0.0-3.0); HEMATOCRIT 37.5 % (42.0-52.0); HEMOGLOBIN 12.5 G/DL (14.2-18.0); LYMPHOCYTES % (AUTO) 10.5 % (20.0-45.0); MEAN CORPUSCULAR VOLUME 92 FL (80-99); MONOCYTES % (AUTO) 8.2 % (1.0-10.0); NEUTROPHILS % (AUTO) 80.4 % (45.0-75.0); PLATELET COUNT 135 K/UL (150-450); RED BLOOD COUNT 4.09 M/UL (4.70-6.10); RED CELL DISTRIBUTION WIDTH 12.9 % (11.6-14.8); WHITE BLOOD COUNT 10.8 K/UL (4.8-10.8)
[2019-12-10 05:10] LABS: ALANINE AMINOTRANSFERASE 35 U/L (12-78); ALBUMIN 1.6 G/DL (3.4-5.0); ALBUMIN/GLOBULIN RATIO 0.4 (1.0-2.7); ALKALINE PHOSPHATASE 220 U/L (46-116); ANION GAP 8 mmol/L (5-15); ASPARTATE AMINO TRANSFERASE 58 U/L (15-37); BILIRUBIN,TOTAL 9.1 MG/DL (0.2-1.0); BLOOD UREA NITROGEN 38 mg/dL (7-18); CALCIUM 8.5 MG/DL (8.5-10.1); CARBON DIOXIDE 27 MMOL/L (21-32); CHLORIDE 116 MMOL/L (98-107); CREATININE 1.9 MG/DL (0.55-1.30); POTASSIUM 3.7 MMOL/L (3.5-5.1); SODIUM 151 MMOL/L (136-145)
[2019-12-10 05:41] LABS: BILIRUBIN,DIRECT 7.9 MG/DL (0.0-0.3)
--- NOTE | 2019-12-10 06:11 | Hematology/Onc Progress Note ---
Assessment/Plan Assessment/Plan Assessment and Recs: # Thrombocytopenia -- is likely related to sepsis from pna, currently in 100- 150 range --> smear has been ordered and reviewed --> meds are noted --> okay to continue on abx --> plt trend 169-->148k-->141-->128 --> hold off steriods --> hep and hiv NEG --> us abd negative for cirrhosis/hsm # Leukocytosis due to pna/lactic acidosis --> as per above --> smear has been reviewed --> as per id, on vanc/zosyn-->zosyn --> wbc trend: 16.7 -->14.1-->10.8 # Anemia of chronic disease --> in this case due to hemodilution --> hgb trend: 12.3 # Hyperbilirubinemia --> gi aware as per their recs -> may need ercp/mrcp as per gi --> mri as needed # Dysphagia --> for peg # Cholestasis # Biliary obstruction # Elevated LFTs # PNA/Sepsis Appreciate consultation and will tasha Rn. Subjective Constitutional: Denies: no symptoms, chills, fever, malaise, weakness, other HEENT: Denies: no symptoms, eye pain, blurred vision, tearing, double vision, ear pain, ear discharge, nose pain, nose congestion, throat pain, throat swelling, mouth pain, mouth swelling, other Cardiovascular: Denies: no symptoms, chest pain, edema, irregular heart rate, lightheadedness, palpitations, syncope, other Respiratory: Denies: no symptoms, cough, shortness of breath, SOB with excertion, SOB at rest, sputum, wheezing, other Gastrointestinal/Abdominal: Denies: no symptoms, abdomen distended, abdominal pain, black stools, tarry stools, blood in stool, constipated, diarrhea, difficulty swallowing, nausea, poor appetite, poor fluid intake, rectal bleeding , vomiting, other Genitourinary: Denies: no symptoms, burning, discharge, frequency, flank pain, hematuria, incontinence, pain, urgency, other Neurologic/Psychiatric: Denies: no symptoms, anxiety, depressed, emotional problems, headache, numbness, paresthesia, pre-existing deficit, seizure, tingling, tremors, weakness, other Hematologic/Lymphatic: Denies: no symptoms, anemia, easy bleeding, easy bruising, adenopathy, other Allergies: Coded Allergies: No Known Allergies (Unverified , 03/19/17) Subjective 12/08: awake, no acute events, wbc 16.7, afebrile, on abx, us abd negative 12/09: no acute distress, lft's worsening, wbc improving, nc 3l 12/10: labs noted, plt remains stable, is unable to have mri, no bleeding Objective Objective Current Medications Medications (Trade) Dose Ordered Sig/Filemon Route PRN Reason Start Time Stop Time Status Last Admin Dose Admin Acetaminophen (Tylenol) 325 mg Q6H PRN ORAL Mild Pain/Temp > 100.5 12/07/19 09:30 01/06/20 09:29 12/09/19 22:50 Acetaminophen (Tylenol) 650 mg Q4H PRN RECTAL Mild Pain (Pain Scale 1-3) 12/10/19 00:15 01/09/20 00:14 Albuterol/ Ipratropium (Albuterol/ Ipratropium) 3 ml Q4H PRN HHN Shortness of Breath 12/05/19 23:15 12/10/19 23:14 12/07/19 12:02 Barium Sulfate (Varibar Honey) 250 ml NOW PRN MC RAD 12/07/19 14:45 12/10/19 14:35 Barium Sulfate (Varibar [place]) 240 ml NOW PRN MC RAD 12/07/19 14:45 12/10/19 14:35 Barium Sulfate (Varibar Pudding) 230 ml NOW PRN MC RAD 12/07/19 14:45 12/10/19 14:35 Dextrose 1,000 ml @ 100 mls/hr Q10H IV 12/09/19 08:30 01/08/20 08:29 12/09/19 22:31 Dextrose (Dextrose 50%) 25 ml Q30M PRN IV Hypoglycemia 12/06/19 11:45 01/05/20 11:44 Dextrose (Dextrose 50%) 50 ml Q30M PRN IV Hypoglycemia 12/06/19 11:45 01/05/20 11:44 Diltiazem HCl (Cardizem) 30 mg EVERY 8 HOURS ORAL 12/06/19 14:00 01/05/20 13:59 12/09/19 22:50 Docusate Sodium (Colace) 100 mg TID ORAL 12/09/19 13:00 01/05/20 17:59 12/09/19 18:00 Insulin Aspart (NovoLOG) BEFORE MEALS AND HS SUBQ 12/06/19 16:30 01/05/20 16:29 12/09/19 22:52 Pantoprazole (Protonix) 40 mg BID ORAL 12/09/19 18:00 01/05/20 14:44 12/09/19 10:12 Piperacillin Sod/ Tazobactam Sod 3.375 gm/Sodium Chloride 110 ml @ 27.5 mls/hr EVERY 8 HOURS IVPB 12/06/19 14:00 12/11/19 13:59 12/09/19 22:51 Potassium Chloride (K-Dur) 40 meq TWICE A DAY ORAL 12/09/19 10:00 01/08/20 09:59 12/09/19 18:01 Risperidone (RisperDAL) 0.5 mg Q12HR ORAL 12/06/19 09:00 01/05/20 08:59 12/09/19 22:49 Tamsulosin HCl (Flomax) 0.4 mg BEDTIME ORAL 12/06/19 21:00 01/05/20 20:59 12/09/19 22:49 Last 24 Hour Vital Signs Date Time Temp Pulse Resp B/P (MAP) Pulse Ox O2 Delivery O2 Flow Rate FiO2 12/10/19 04:00 88 12/10/19 04:00 99.0 102 20 123/52 (75) 95 12/10/19 04:00 Nasal Cannula 3.0 12/10/19 00:00 99.9 106 24 119/54 (75) 97 12/10/19 00:00 107 12/10/19 00:00 Nasal Cannula 3.0 12/09/19 23:20 99.9 12/09/19 22:50 103 115/60 12/09/19 20:00 103 12/09/19 20:00 100.3 109 24 115/60 (78) 97 12/09/19 20:00 Nasal Cannula 3.0 12/09/19 19:49 106 19 96 Nasal Cannula 3.0 32 12/09/19 19:49 96 Nasal Cannula 3.0 32 12/09/19 16:00 96 12/09/19 16:00 Nasal Cannula 3.0 12/09/19 16:00 98.9 101 18 129/87 (101) 94 12/09/19 15:05 95 123/54 12/09/19 12:00 83 12/09/19 12:00 98.9 85 18 104/56 (72) 97 12/09/19 12:00 Nasal Cannula 3.0 12/09/19 08:41 96 Nasal Cannula 3.0 32 12/09/19 08:40 91 22 96 Nasal Cannula 3.0 32 12/09/19 08:00 87 12/09/19 08:00 97.3 83 22 108/62 (77) 98 12/09/19 08:00 Nasal Cannula 3.0 12/09/19 06:11 101 112/64 12/09/19 04:00 Nasal Cannula 3.0 12/09/19 04:00 88 12/09/19 04:00 98.1 89 21 110/58 (75) 99 12/09/19 00:00 Nasal Cannula 3.0 12/09/19 00:00 99 12/09/19 00:00 98.1 97 20 117/60 (79) 99 12/08/19 21:05 101 145/70 12/08/19 20:15 97 Nasal Cannula 3.0 32 12/08/19 20:15 85 20 97 Nasal Cannula 3.0 32 12/08/19 20:00 98.1 88 23 107/60 (76) 99 12/08/19 20:00 86 12/08/19 20:00 Nasal Cannula 3.0 12/08/19 16:00 87 12/08/19 16:00 97.5 88 22 100/53 (69) 99 12/08/19 16:00 Nasal Cannula 3.0 12/08/19 15:16 91 105/77 12/08/19 12:00 Nasal Cannula 3.0 12/08/19 12:00 98.8 91 22 105/77 (86) 91 12/08/19 12:00 87 12/08/19 09:04 95 19 94 Nasal Cannula 3.0 32 12/08/19 08:00 Nasal Cannula 3.0 12/08/19 08:00 102 12/08/19 08:00 97.9 100 22 103/54 (70) 94 Intake and Output 12/09/19 12/10/19 19:00 07:00 Intake Total 400 ml 850 ml Output Total 800 ml Balance -400 ml 850 ml Intake Oral 400 ml IV Total 850 ml Output Urine Total 800 ml Labs Test 12/08/19 04:30 12/09/19 04:00 12/10/19 04:10 White Blood Count 16.7 K/UL (4.8-10.8) 14.1 K/UL (4.8-10.8) 10.8 K/UL (4.8-10.8) Red Blood Count 4.05 M/UL (4.70-6.10) 3.93 M/UL (4.70-6.10) 4.09 M/UL (4.70-6.10) Hemoglobin 12.6 G/DL (14.2-18.0) 12.3 G/DL (14.2-18.0) 12.5 G/DL (14.2-18.0) Hematocrit 37.3 % (42.0-52.0) 36.4 % (42.0-52.0) 37.5 % (42.0-52.0) Mean Corpuscular Volume 92 FL (80-99) 93 FL (80-99) 92 FL (80-99) Mean Corpuscular Hemoglobin 31.1 PG (27.0-31.0) 31.3 PG (27.0-31.0) 30.6 PG (27.0-31.0) Mean Corpuscular Hemoglobin Concent 33.7 G/DL (32.0-36.0) 33.8 G/DL (32.0-36.0) 33.3 G/DL (32.0-36.0) Red Cell Distribution Width 12.7 % (11.6-14.8) 12.9 % (11.6-14.8) 12.9 % (11.6-14.8) Platelet Count 141 K/UL (150-450) 128 K/UL (150-450) 135 K/UL (150-450) Mean Platelet Volume 6.9 FL (6.5-10.1) 7.4 FL (6.5-10.1) 7.5 FL (6.5-10.1) Neutrophils (%) (Auto) % (45.0-75.0) % (45.0-75.0) 80.4 % (45.0-75.0) Lymphocytes (%) (Auto) % (20.0-45.0) % (20.0-45.0) 10.5 % (20.0-45.0) Monocytes (%) (Auto) % (1.0-10.0) % (1.0-10.0) 8.2 % (1.0-10.0) Eosinophils (%) (Auto) % (0.0-3.0) % (0.0-3.0) 0.6 % (0.0-3.0) Basophils (%) (Auto) % (0.0-2.0) % (0.0-2.0) 0.3 % (0.0-2.0) Differential Total Cells Counted 100 100 Neutrophils % (Manual) 88 % (45-75) 82 % (45-75) Lymphocytes % (Manual) 8 % (20-45) 12 % (20-45) Monocytes % (Manual) 4 % (1-10) 6 % (1-10) Eosinophils % (Manual) 0 % (0-3) 0 % (0-3) Basophils % (Manual) 0 % (0-2) 0 % (0-2) Band Neutrophils 0 % (0-8) 0 % (0-8) Platelet Estimate Decreased Decreased Platelet Morphology Normal Normal Red Blood Cell Morphology Normal Normal Erythrocyte Sedimentation Rate 84 MM/HR (0-20) Prothrombin Time 12.0 SEC (9.30-11.50) Prothromb Time International Ratio 1.1 (0.9-1.1) Activated Partial Thromboplast Time 32 SEC (23-33) Sodium Level 150 MMOL/L (136-145) 153 MMOL/L (136-145) 151 MMOL/L (136-145) Potassium Level 3.2 MMOL/L (3.5-5.1) 3.0 MMOL/L (3.5-5.1) 3.7 MMOL/L (3.5-5.1) Chloride Level 114 MMOL/L (98-107) 116 MMOL/L (98-107) 116 MMOL/L (98-107) Carbon Dioxide Level 26 MMOL/L (21-32) 27 MMOL/L (21-32) 27 MMOL/L (21-32) Anion Gap 11 mmol/L (5-15) 10 mmol/L (5-15) 8 mmol/L (5-15) Blood Urea Nitrogen 41 mg/dL (7-18) 43 mg/dL (7-18) 38 mg/dL (7-18) Creatinine 2.0 MG/DL (0.55-1.30) 1.9 MG/DL (0.55-1.30) 1.9 MG/DL (0.55-1.30) Estimat Glomerular Filtration Rate mL/min (>60) mL/min (>60) mL/min (>60) Glucose Level 159 MG/DL (74-106) 159 MG/DL (74-106) 202 MG/DL (74-106) Lactic Acid Level 1.50 mmol/L (0.4-2.0) Uric Acid 3.7 MG/DL (2.6-7.2) Calcium Level 8.3 MG/DL (8.5-10.1) 8.5 MG/DL (8.5-10.1) 8.5 MG/DL (8.5-10.1) Phosphorus Level 3.3 MG/DL (2.5-4.9) 2.6 MG/DL (2.5-4.9) Magnesium Level 1.9 MG/DL (1.8-2.4) 2.0 MG/DL (1.8-2.4) Total Bilirubin 7.2 MG/DL (0.2-1.0) 8.2 MG/DL (0.2-1.0) 9.1 MG/DL (0.2-1.0) Direct Bilirubin 6.2 MG/DL (0.0-0.3) 7.2 MG/DL (0.0-0.3) 7.9 MG/DL (0.0-0.3) Aspartate Amino Transf (AST/SGOT) 38 U/L (15-37) 45 U/L (15-37) 58 U/L (15-37) Alanine Aminotransferase (ALT/SGPT) 36 U/L (12-78) 33 U/L (12-78) 35 U/L (12-78) Alkaline Phosphatase 214 U/L (46-116) 213 U/L (46-116) 220 U/L (46-116) C-Reactive Protein, Quantitative 45.7 mg/dL (0.00-0.90) 36.8 mg/dL (0.00-0.90) Pro-B-Type Natriuretic Peptide 1227 pg/mL (0-125) 1268 pg/mL (0-125) Total Protein 6.2 G/DL (6.4-8.2) 6.3 G/DL (6.4-8.2) 6.1 G/DL (6.4-8.2) Albumin 1.7 G/DL (3.4-5.0) 1.7 G/DL (3.4-5.0) 1.6 G/DL (3.4-5.0) Globulin 4.5 g/dL 4.6 g/dL 4.5 g/dL Albumin/Globulin Ratio 0.4 (1.0-2.7) 0.4 (1.0-2.7) 0.4 (1.0-2.7) Amylase Level 86 U/L (25-115) Lipase 272 U/L (73-393) Height (Feet): 5 Height (Inches): 6.00 Weight (Pounds): 159 Objective Physical Exam Vitals: noted General: no apparent distress HEENT: supple Resp: normal breath sounds, no respiratory distress, NC+ Cardiovascular: normal rate Gastrointestinal: normal inspection, non tender, soft, normal bowel sounds, non -distended Skin: normal inspection, normal color, no rash, warm/dry, palpation normal, well hydrated Lymphatic: normal inspection, no adenopathy Damian Batres MD Dec 10, 2019 06:11
[2019-12-10] MEDS: dilTIAZem HCl 30mg tab ORAL SCH ×3 (06:37→22:00)
[2019-12-10] MEDS: Piperacillin/Tazobactam 3.375 GM in NS 110 ML IVPB SCH ×3 (06:37→22:03)
[2019-12-10] MEDS: NovoLOG Insulin Flexpen SUBQ SCH ×4 (06:38→22:03)
--- NOTE | 2019-12-10 07:55 | NUR ---
HAND-OFF: Report given to sujey RN USING SBAR.PATIENT REMAINS IN STABLE CONDITION.
--- NOTE | 2019-12-10 07:55 | NUR ---
NURSE NOTES: Received patient from JAMAICA Manjarrez. Patient is resting in bed. Patient is aox1. Patient is on 3L NC and tolerating well. Patient has a RFA 22g running D5W at 100ml/hr IV site in patent and no s/s of infiltration at the site. Bed is locked, alarmed and in the lowest position. side rails x3, and call light is within reach. Will continue to monitor.
[2019-12-10 08:00] VITALS: BP 123/52
--- NOTE | 2019-12-10 08:30 | NUR ---
12/10...Concerning MRcp, Pt still has respiratory instability when laying flat, per RN. maria r 08:15
[2019-12-10] MEDS: Docusate 100mg cap ORAL SCH ×3 (08:56→18:00)
--- NOTE | 2019-12-10 10:38 | Infectious Diseases Prog Note ---
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 Hypernatremia Distended Gallbladder RECOMMENDATION: We will continue with Zosyn Subjective ROS Limited/Unobtainable: Yes Constitutional: Denies: fever Allergies: Coded Allergies: No Known Allergies (Unverified , 03/19/17) Objective Vital Signs Last 24 Hour Vital Signs Date Time Temp Pulse Resp B/P (MAP) Pulse Ox O2 Delivery O2 Flow Rate FiO2 12/10/19 08:00 Nasal Cannula 3.0 12/10/19 08:00 97.5 78 16 123/52 (75) 95 12/10/19 08:00 76 12/10/19 07:06 96 Nasal Cannula 2.0 28 12/10/19 07:05 79 20 96 Nasal Cannula 2.0 28 12/10/19 06:37 88 123/52 12/10/19 04:00 88 12/10/19 04:00 99.0 102 20 123/52 (75) 95 12/10/19 04:00 Nasal Cannula 3.0 12/10/19 00:00 99.9 106 24 119/54 (75) 97 12/10/19 00:00 107 12/10/19 00:00 Nasal Cannula 3.0 12/09/19 23:20 99.9 12/09/19 22:50 103 115/60 12/09/19 20:00 103 12/09/19 20:00 100.3 109 24 115/60 (78) 97 12/09/19 20:00 Nasal Cannula 3.0 12/09/19 19:49 106 19 96 Nasal Cannula 3.0 32 12/09/19 19:49 96 Nasal Cannula 3.0 32 12/09/19 16:00 96 12/09/19 16:00 Nasal Cannula 3.0 12/09/19 16:00 98.9 101 18 129/87 (101) 94 12/09/19 15:05 95 123/54 12/09/19 12:00 83 12/09/19 12:00 98.9 85 18 104/56 (72) 97 12/09/19 12:00 Nasal Cannula 3.0 Height (Feet): 5 Height (Inches): 6.00 Weight (Pounds): 159 General Appearance: no acute distress HEENT: other - yellowish sclera Respiratory/Chest: lungs clear Cardiovascular: normal rate Abdomen: soft, non tender Extremities: other - hands edema Neurologic/Psychiatric: other - sleeping Laboratory Tests Test 12/10/19 04:10 White Blood Count 10.8 K/UL (4.8-10.8) Red Blood Count 4.09 M/UL (4.70-6.10) L Hemoglobin 12.5 G/DL (14.2-18.0) L Hematocrit 37.5 % (42.0-52.0) L Mean Corpuscular Volume 92 FL (80-99) Mean Corpuscular Hemoglobin 30.6 PG (27.0-31.0) Mean Corpuscular Hemoglobin Concent 33.3 G/DL (32.0-36.0) Red Cell Distribution Width 12.9 % (11.6-14.8) Platelet Count 135 K/UL (150-450) L Mean Platelet Volume 7.5 FL (6.5-10.1) Neutrophils (%) (Auto) 80.4 % (45.0-75.0) H Lymphocytes (%) (Auto) 10.5 % (20.0-45.0) L Monocytes (%) (Auto) 8.2 % (1.0-10.0) Eosinophils (%) (Auto) 0.6 % (0.0-3.0) Basophils (%) (Auto) 0.3 % (0.0-2.0) Sodium Level 151 MMOL/L (136-145) H Potassium Level 3.7 MMOL/L (3.5-5.1) Chloride Level 116 MMOL/L (98-107) H Carbon Dioxide Level 27 MMOL/L (21-32) Anion Gap 8 mmol/L (5-15) Blood Urea Nitrogen 38 mg/dL (7-18) H Creatinine 1.9 MG/DL (0.55-1.30) H Estimat Glomerular Filtration Rate mL/min (>60) Glucose Level 202 MG/DL (74-106) H Calcium Level 8.5 MG/DL (8.5-10.1) Total Bilirubin 9.1 MG/DL (0.2-1.0) H Direct Bilirubin 7.9 MG/DL (0.0-0.3) H Aspartate Amino Transf (AST/SGOT) 58 U/L (15-37) H Alanine Aminotransferase (ALT/SGPT) 35 U/L (12-78) Alkaline Phosphatase 220 U/L (46-116) H Total Protein 6.1 G/DL (6.4-8.2) L Albumin 1.6 G/DL (3.4-5.0) L Globulin 4.5 g/dL Albumin/Globulin Ratio 0.4 (1.0-2.7) L Current Medications Medications (Trade) Dose Ordered Sig/Filemon Route PRN Reason Start Time Stop Time Status Last Admin Dose Admin Acetaminophen (Tylenol) 325 mg Q6H PRN ORAL Mild Pain/Temp > 100.5 12/07/19 09:30 01/06/20 09:29 12/09/19 22:50 Acetaminophen (Tylenol) 650 mg Q4H PRN RECTAL Mild Pain (Pain Scale 1-3) 12/10/19 00:15 01/09/20 00:14 Albuterol/ Ipratropium (Albuterol/ Ipratropium) 3 ml Q4H PRN HHN Shortness of Breath 12/05/19 23:15 12/10/19 23:14 12/07/19 12:02 Barium Sulfate (Varibar Honey) 250 ml NOW PRN MC RAD 12/07/19 14:45 12/10/19 14:35 Barium Sulfate (Varibar [place]) 240 ml NOW PRN MC RAD 12/07/19 14:45 12/10/19 14:35 Barium Sulfate (Varibar Pudding) 230 ml NOW PRN RAD 12/07/19 14:45 12/10/19 14:35 Dextrose 1,000 ml @ 100 mls/hr Q10H IV 12/09/19 08:30 01/08/20 08:29 12/09/19 22:31 Dextrose (Dextrose 50%) 25 ml Q30M PRN IV Hypoglycemia 12/06/19 11:45 01/05/20 11:44 Dextrose (Dextrose 50%) 50 ml Q30M PRN IV Hypoglycemia 12/06/19 11:45 01/05/20 11:44 Diltiazem HCl (Cardizem) 30 mg EVERY 8 HOURS ORAL 12/06/19 14:00 01/05/20 13:59 12/10/19 06:37 Docusate Sodium (Colace) 100 mg TID ORAL 12/09/19 13:00 01/05/20 17:59 12/10/19 08:56 Insulin Aspart (NovoLOG) BEFORE MEALS AND HS SUBQ 12/06/19 16:30 01/05/20 16:29 12/10/19 06:38 Pantoprazole (Protonix) 40 mg BID ORAL 12/09/19 18:00 01/05/20 14:44 12/10/19 08:55 Piperacillin Sod/ Tazobactam Sod 3.375 gm/Sodium Chloride 110 ml @ 27.5 mls/hr EVERY 8 HOURS IVPB 12/06/19 14:00 12/11/19 13:59 12/10/19 06:37 Potassium Chloride (K-Dur) 40 meq TWICE A DAY ORAL 12/09/19 10:00 01/08/20 09:59 12/10/19 08:55 Risperidone (RisperDAL) 0.5 mg Q12HR ORAL 12/06/19 09:00 01/05/20 08:59 12/10/19 08:55 Tamsulosin HCl (Flomax) 0.4 mg BEDTIME ORAL 12/06/19 21:00 01/05/20 20:59 12/09/19 22:49 Enrike Hadley MD Dec 10, 2019 10:38
--- NOTE | 2019-12-10 11:14 | Pulmonology Progress Note ---
Assessment/Plan Assessment/Plan IMPRESSION: 1. Left lower lobe pneumonia. Reviewed CXR with radiology; no definite pneumonia seen. 2. Sepsis with lactic acidemia. 3. Acute renal insufficiency. 4. History of CHF. 5. Dementia. 6. Jaundice; has intra-abdominal/biliary issue; GI and surgery following DISCUSSION: Fluid resuscitation. Continue broad-spectrum antibiotics. I will follow carefully as respiratory licensed tax consultant. GI/surgery following Kevin Lincoln M.D. Subjective Interval Events: None new Constitutional: Reports: no symptoms HEENT: Repors: no symptoms Respiratory: Reports: no symptoms Cardiovascular: Reports: no symptoms Gastrointestinal/Abdominal: Reports: no symptoms Allergies: Coded Allergies: No Known Allergies (Unverified , 03/19/17) Objective Last 24 Hour Vital Signs Date Time Temp Pulse Resp B/P (MAP) Pulse Ox O2 Delivery O2 Flow Rate FiO2 12/10/19 08:00 Nasal Cannula 3.0 12/10/19 08:00 97.5 78 16 123/52 (75) 95 12/10/19 08:00 76 12/10/19 07:06 96 Nasal Cannula 2.0 28 12/10/19 07:05 79 20 96 Nasal Cannula 2.0 28 12/10/19 06:37 88 123/52 12/10/19 04:00 88 12/10/19 04:00 99.0 102 20 123/52 (75) 95 12/10/19 04:00 Nasal Cannula 3.0 12/10/19 00:00 99.9 106 24 119/54 (75) 97 12/10/19 00:00 107 12/10/19 00:00 Nasal Cannula 3.0 12/09/19 23:20 99.9 12/09/19 22:50 103 115/60 12/09/19 20:00 103 12/09/19 20:00 100.3 109 24 115/60 (78) 97 12/09/19 20:00 Nasal Cannula 3.0 12/09/19 19:49 106 19 96 Nasal Cannula 3.0 32 12/09/19 19:49 96 Nasal Cannula 3.0 32 12/09/19 16:00 96 12/09/19 16:00 Nasal Cannula 3.0 12/09/19 16:00 98.9 101 18 129/87 (101) 94 12/09/19 15:05 95 123/54 12/09/19 12:00 83 12/09/19 12:00 98.9 85 18 104/56 (72) 97 12/09/19 12:00 Nasal Cannula 3.0 Intake and Output 12/09/19 12/10/19 19:00 07:00 Intake Total 400 ml 1180 ml Output Total 800 ml 1000 ml Balance -400 ml 180 ml Intake Oral 400 ml 30 ml IV Total 1150 ml Output Urine Total 800 ml 1000 ml # Bowel Movements 1 General Appearance: no acute distress HEENT: normocephalic Respiratory/Chest: chest wall non-tender Cardiovascular: normal peripheral pulses Abdomen: normal bowel sounds Laboratory Tests 12/10/19 04:10: White Blood Count 10.8, Red Blood Count 4.09L, Hemoglobin 12.5L, Hematocrit 37.5L, Mean Corpuscular Volume 92, Mean Corpuscular Hemoglobin 30.6, Mean Corpuscular Hemoglobin Concent 33.3, Red Cell Distribution Width 12.9, Platelet Count 135L, Mean Platelet Volume 7.5, Neutrophils (%) (Auto) 80.4H, Lymphocytes (%) (Auto) 10.5L, Monocytes (%) (Auto) 8.2, Eosinophils (%) (Auto) 0.6, Basophils (%) (Auto) 0.3, Sodium Level 151H, Potassium Level 3.7, Chloride Level 116H, Carbon Dioxide Level 27, Anion Gap 8, Blood Urea Nitrogen 38H, Creatinine 1.9H, Estimat Glomerular Filtration Rate , Glucose Level 202H, Calcium Level 8.5, Total Bilirubin 9.1H, Direct Bilirubin 7.9H, Aspartate Amino Transf (AST/SGOT) 58H, Alanine Aminotransferase (ALT/SGPT) 35, Alkaline Phosphatase 220H, Total Protein 6.1L, Albumin 1.6L, Globulin 4.5, Albumin/ Globulin Ratio 0.4L Current Medications Medications (Trade) Dose Ordered Sig/Filemon Route PRN Reason Start Time Stop Time Status Last Admin Dose Admin Acetaminophen (Tylenol) 325 mg Q6H PRN ORAL Mild Pain/Temp > 100.5 12/07/19 09:30 01/06/20 09:29 12/09/19 22:50 Acetaminophen (Tylenol) 650 mg Q4H PRN RECTAL Mild Pain (Pain Scale 1-3) 12/10/19 00:15 01/09/20 00:14 Albuterol/ Ipratropium (Albuterol/ Ipratropium) 3 ml Q4H PRN HHN Shortness of Breath 12/05/19 23:15 12/10/19 23:14 12/07/19 12:02 Barium Sulfate (Varibar Honey) 250 ml NOW PRN MC RAD 12/07/19 14:45 12/10/19 14:35 Barium Sulfate (Varibar [place]) 240 ml NOW PRN MC RAD 12/07/19 14:45 12/10/19 14:35 Barium Sulfate (Varibar Pudding) 230 ml NOW PRN RAD 12/07/19 14:45 12/10/19 14:35 Dextrose 1,000 ml @ 100 mls/hr Q10H IV 12/09/19 08:30 01/08/20 08:29 12/09/19 22:31 Dextrose (Dextrose 50%) 25 ml Q30M PRN IV Hypoglycemia 12/06/19 11:45 01/05/20 11:44 Dextrose (Dextrose 50%) 50 ml Q30M PRN IV Hypoglycemia 12/06/19 11:45 01/05/20 11:44 Diltiazem HCl (Cardizem) 30 mg EVERY 8 HOURS ORAL 12/06/19 14:00 01/05/20 13:59 12/10/19 06:37 Docusate Sodium (Colace) 100 mg TID ORAL 12/09/19 13:00 01/05/20 17:59 12/10/19 08:56 Insulin Aspart (NovoLOG) BEFORE MEALS AND HS SUBQ 12/06/19 16:30 01/05/20 16:29 12/10/19 06:38 Pantoprazole (Protonix) 40 mg BID ORAL 12/09/19 18:00 01/05/20 14:44 12/10/19 08:55 Piperacillin Sod/ Tazobactam Sod 3.375 gm/Sodium Chloride 110 ml @ 27.5 mls/hr EVERY 8 HOURS IVPB 12/06/19 14:00 12/11/19 13:59 12/10/19 06:37 Potassium Chloride (K-Dur) 40 meq TWICE A DAY ORAL 12/09/19 10:00 01/08/20 09:59 12/10/19 08:55 Risperidone (RisperDAL) 0.5 mg Q12HR ORAL 12/06/19 09:00 01/05/20 08:59 12/10/19 08:55 Tamsulosin HCl (Flomax) 0.4 mg BEDTIME ORAL 12/06/19 21:00 01/05/20 20:59 12/09/19 22:49 Kevin Lincoln MD Dec 10, 2019 11:14
--- NOTE | 2019-12-10 11:20 | GI Progress Note ---
Assessment/Plan Problems: (1) Elevated LFTs ICD Codes: R94.5 - Abnormal results of liver function studies SNOMED: 259484496, 642105360 (2) Biliary obstruction ICD Codes: K83.1 - Obstruction of bile duct SNOMED: 835629134 (3) Cholestasis ICD Codes: K83.1 - Obstruction of bile duct SNOMED: 01173797 (4) Hyperbilirubinemia ICD Codes: E80.6 - Other disorders of bilirubin metabolism SNOMED: 88157880 Status: unchanged Status Narrative Discussed with Dr. Escalante. Assessment/Plan This is a 89-year-old male patient that presented with hyperbilirubinemia with no transaminitis 2/2 to cholestasis abdominal US reviewed hepatitis panel negative GGT elevation rising bilirubin MRCP unable to be done, patient desaturates ? cholestasis due to sepsis insert NGT, patient unable to tolerate diet fu ST evaluation Repeat liver function test for tomorrow We will follow along on a daily basis with any additional recommendations The patient was seen and examined at bedside and all new and available data was reviewed in the patients chart. I agree with the above findings, impression and plan. (Patient seen earlier today. Signature stamp does not reflect patient encounter time.). - Bladimir Escalante MD Subjective Gastrointestinal/Abdominal: Reports: difficulty swallowing Subjective limited Objective Last 24 Hour Vital Signs Date Time Temp Pulse Resp B/P (MAP) Pulse Ox O2 Delivery O2 Flow Rate FiO2 12/10/19 08:00 Nasal Cannula 3.0 12/10/19 08:00 97.5 78 16 123/52 (75) 95 12/10/19 08:00 76 12/10/19 07:06 96 Nasal Cannula 2.0 28 12/10/19 07:05 79 20 96 Nasal Cannula 2.0 28 12/10/19 06:37 88 123/52 12/10/19 04:00 88 12/10/19 04:00 99.0 102 20 123/52 (75) 95 12/10/19 04:00 Nasal Cannula 3.0 12/10/19 00:00 99.9 106 24 119/54 (75) 97 12/10/19 00:00 107 12/10/19 00:00 Nasal Cannula 3.0 12/09/19 23:20 99.9 12/09/19 22:50 103 115/60 12/09/19 20:00 103 1/30/20 20:00 100.3 109 24 115/60 (78) 97 12/09/19 20:00 Nasal Cannula 3.0 12/09/19 19:49 106 19 96 Nasal Cannula 3.0 32 12/09/19 19:49 96 Nasal Cannula 3.0 32 12/09/19 16:00 96 12/09/19 16:00 Nasal Cannula 3.0 12/09/19 16:00 98.9 101 18 129/87 (101) 94 12/09/19 15:05 95 123/54 12/09/19 12:00 83 12/09/19 12:00 98.9 85 18 104/56 (72) 97 12/09/19 12:00 Nasal Cannula 3.0 Intake and Output 12/09/19 12/10/19 19:00 07:00 Intake Total 400 ml 1180 ml Output Total 800 ml 1000 ml Balance -400 ml 180 ml Intake Oral 400 ml 30 ml IV Total 1150 ml Output Urine Total 800 ml 1000 ml # Bowel Movements 1 Laboratory Tests Test 12/10/19 04:10 White Blood Count 10.8 K/UL (4.8-10.8) Red Blood Count 4.09 M/UL (4.70-6.10) L Hemoglobin 12.5 G/DL (14.2-18.0) L Hematocrit 37.5 % (42.0-52.0) L Mean Corpuscular Volume 92 FL (80-99) Mean Corpuscular Hemoglobin 30.6 PG (27.0-31.0) Mean Corpuscular Hemoglobin Concent 33.3 G/DL (32.0-36.0) Red Cell Distribution Width 12.9 % (11.6-14.8) Platelet Count 135 K/UL (150-450) L Mean Platelet Volume 7.5 FL (6.5-10.1) Neutrophils (%) (Auto) 80.4 % (45.0-75.0) H Lymphocytes (%) (Auto) 10.5 % (20.0-45.0) L Monocytes (%) (Auto) 8.2 % (1.0-10.0) Eosinophils (%) (Auto) 0.6 % (0.0-3.0) Basophils (%) (Auto) 0.3 % (0.0-2.0) Sodium Level 151 MMOL/L (136-145) H Potassium Level 3.7 MMOL/L (3.5-5.1) Chloride Level 116 MMOL/L (98-107) H Carbon Dioxide Level 27 MMOL/L (21-32) Anion Gap 8 mmol/L (5-15) Blood Urea Nitrogen 38 mg/dL (7-18) H Creatinine 1.9 MG/DL (0.55-1.30) H Estimat Glomerular Filtration Rate mL/min (>60) Glucose Level 202 MG/DL (74-106) H Calcium Level 8.5 MG/DL (8.5-10.1) Total Bilirubin 9.1 MG/DL (0.2-1.0) H Direct Bilirubin 7.9 MG/DL (0.0-0.3) H Aspartate Amino Transf (AST/SGOT) 58 U/L (15-37) H Alanine Aminotransferase (ALT/SGPT) 35 U/L (12-78) Alkaline Phosphatase 220 U/L (46-116) H Total Protein 6.1 G/DL (6.4-8.2) L Albumin 1.6 G/DL (3.4-5.0) L Globulin 4.5 g/dL Albumin/Globulin Ratio 0.4 (1.0-2.7) L Height (Feet): 5 Height (Inches): 6.00 Weight (Pounds): 159 General Appearance: WD/WN, no apparent distress, alert Cardiovascular: normal rate Respiratory/Chest: normal breath sounds, no respiratory distress Abdominal Exam: normal bowel sounds, non tender, soft Extremities: non-tender Demetrio Ash SKIAGRAPHER Dec 10, 2019 11:20
--- NOTE | 2019-12-10 11:38 | Cardiac Electrophysiology PN ---
Assessment/Plan Assessment/Plan 1. Hypertension. On Cardizem 30 mg every 8 hours. Echo Nl EF 2. Shortness of breath secondary to pneumonia. 3. Nonsustained VT 5 beats. K was replaced. Nl EF 4. Pneumonia, on vancomycin and Zosyn per Dr. Barth. 5. Renal failure. 6. Lactic acidosis. 7. Hyperbilirubinemia with total bilirubin of 6.6, direct bilirubin of 5.5. Fu Dr Escalante MRI abdomen couldn't be done as unable to lay flat 8. Renal failure with BUN of 35 and creatinine of 2.0. 9. Dysphagia. Passed swallow eval 10. Dementia. DW RN Subjective Subjective In SR. RN at bedside. passed swallow eval. Had 5 beats of VT yesterday but none since Objective Last 24 Hour Vital Signs Date Time Temp Pulse Resp B/P (MAP) Pulse Ox O2 Delivery O2 Flow Rate FiO2 12/10/19 08:00 Nasal Cannula 3.0 12/10/19 08:00 97.5 78 16 123/52 (75) 95 12/10/19 08:00 76 12/10/19 07:06 96 Nasal Cannula 2.0 28 12/10/19 07:05 79 20 96 Nasal Cannula 2.0 28 12/10/19 06:37 88 123/52 12/10/19 04:00 88 12/10/19 04:00 99.0 102 20 123/52 (75) 95 12/10/19 04:00 Nasal Cannula 3.0 12/10/19 00:00 99.9 106 24 119/54 (75) 97 12/10/19 00:00 107 12/10/19 00:00 Nasal Cannula 3.0 12/09/19 23:20 99.9 12/09/19 22:50 103 115/60 12/09/19 20:00 103 12/09/19 20:00 100.3 109 24 115/60 (78) 97 12/09/19 20:00 Nasal Cannula 3.0 12/09/19 19:49 106 19 96 Nasal Cannula 3.0 32 12/09/19 19:49 96 Nasal Cannula 3.0 32 12/09/19 16:00 96 12/09/19 16:00 Nasal Cannula 3.0 12/09/19 16:00 98.9 101 18 129/87 (101) 94 12/09/19 15:05 95 123/54 12/09/19 12:00 83 12/09/19 12:00 98.9 85 18 104/56 (72) 97 12/09/19 12:00 Nasal Cannula 3.0 Intake and Output 12/09/19 12/10/19 19:00 07:00 Intake Total 400 ml 1180 ml Output Total 800 ml 1000 ml Balance -400 ml 180 ml Intake Oral 400 ml 30 ml IV Total 1150 ml Output Urine Total 800 ml 1000 ml # Bowel Movements 1 Laboratory Tests Test 12/10/19 04:10 White Blood Count 10.8 K/UL (4.8-10.8) Red Blood Count 4.09 M/UL (4.70-6.10) L Hemoglobin 12.5 G/DL (14.2-18.0) L Hematocrit 37.5 % (42.0-52.0) L Mean Corpuscular Volume 92 FL (80-99) Mean Corpuscular Hemoglobin 30.6 PG (27.0-31.0) Mean Corpuscular Hemoglobin Concent 33.3 G/DL (32.0-36.0) Red Cell Distribution Width 12.9 % (11.6-14.8) Platelet Count 135 K/UL (150-450) L Mean Platelet Volume 7.5 FL (6.5-10.1) Neutrophils (%) (Auto) 80.4 % (45.0-75.0) H Lymphocytes (%) (Auto) 10.5 % (20.0-45.0) L Monocytes (%) (Auto) 8.2 % (1.0-10.0) Eosinophils (%) (Auto) 0.6 % (0.0-3.0) Basophils (%) (Auto) 0.3 % (0.0-2.0) Sodium Level 151 MMOL/L (136-145) H Potassium Level 3.7 MMOL/L (3.5-5.1) Chloride Level 116 MMOL/L (98-107) H Carbon Dioxide Level 27 MMOL/L (21-32) Anion Gap 8 mmol/L (5-15) Blood Urea Nitrogen 38 mg/dL (7-18) H Creatinine 1.9 MG/DL (0.55-1.30) H Estimat Glomerular Filtration Rate mL/min (>60) Glucose Level 202 MG/DL (74-106) H Calcium Level 8.5 MG/DL (8.5-10.1) Total Bilirubin 9.1 MG/DL (0.2-1.0) H Direct Bilirubin 7.9 MG/DL (0.0-0.3) H Aspartate Amino Transf (AST/SGOT) 58 U/L (15-37) H Alanine Aminotransferase (ALT/SGPT) 35 U/L (12-78) Alkaline Phosphatase 220 U/L (46-116) H Total Protein 6.1 G/DL (6.4-8.2) L Albumin 1.6 G/DL (3.4-5.0) L Globulin 4.5 g/dL Albumin/Globulin Ratio 0.4 (1.0-2.7) L Objective HEAD AND NECK: Shows no JVD. LUNGS: Decreased breath sounds. CARDIOVASCULAR: Shows regular S1 and S2 with no gallop. ABDOMEN: Soft. EXTREMITIES: No pitting edema. Kyle Reynoso MD Dec 10, 2019 11:38
--- NOTE | 2019-12-10 11:59 | Nephrology Progress Note ---
Assessment/Plan Problem List: (1) Renal failure (ARF), acute on chronic (2) Alzheimer's dementia (3) Sepsis (4) UTI (urinary tract infection) Assessment Acute on Chronic renal failure- CHF- Past echo 55% EjFx Sepsis, High Lactate- Leukocytosis Left lower lobe pneumonia Alzheimer's dementia UTI (urinary tract infection) Hyperglycemia, DM II Plan 2D echo noted KCL IV and Po as needed slow hydrate- D5w monitor renal parameters correct electrolytes BP and BS in check per orders Subjective ROS Limited/Unobtainable: No Constitutional: Reports: malaise, weakness Objective Objective Last 24 Hour Vital Signs Date Time Temp Pulse Resp B/P (MAP) Pulse Ox O2 Delivery O2 Flow Rate FiO2 12/10/19 08:00 Nasal Cannula 3.0 12/10/19 08:00 97.5 78 16 123/52 (75) 95 12/10/19 08:00 76 12/10/19 07:06 96 Nasal Cannula 2.0 28 12/10/19 07:05 79 20 96 Nasal Cannula 2.0 28 12/10/19 06:37 88 123/52 12/10/19 04:00 88 12/10/19 04:00 99.0 102 20 123/52 (75) 95 12/10/19 04:00 Nasal Cannula 3.0 12/10/19 00:00 99.9 106 24 119/54 (75) 97 12/10/19 00:00 107 12/10/19 00:00 Nasal Cannula 3.0 12/09/19 23:20 99.9 12/09/19 22:50 103 115/60 12/09/19 20:00 103 12/09/19 20:00 100.3 109 24 115/60 (78) 97 12/09/19 20:00 Nasal Cannula 3.0 12/09/19 19:49 106 19 96 Nasal Cannula 3.0 32 12/09/19 19:49 96 Nasal Cannula 3.0 32 12/09/19 16:00 96 12/09/19 16:00 Nasal Cannula 3.0 12/09/19 16:00 98.9 101 18 129/87 (101) 94 12/09/19 15:05 95 123/54 12/09/19 12:00 83 12/09/19 12:00 98.9 85 18 104/56 (72) 97 12/09/19 12:00 Nasal Cannula 3.0 Intake and Output 12/09/19 12/10/19 19:00 07:00 Intake Total 400 ml 1180 ml Output Total 800 ml 1000 ml Balance -400 ml 180 ml Intake Oral 400 ml 30 ml IV Total 1150 ml Output Urine Total 800 ml 1000 ml # Bowel Movements 1 Laboratory Tests 12/10/19 04:10: White Blood Count 10.8, Red Blood Count 4.09L, Hemoglobin 12.5L, Hematocrit 37.5L, Mean Corpuscular Volume 92, Mean Corpuscular Hemoglobin 30.6, Mean Corpuscular Hemoglobin Concent 33.3, Red Cell Distribution Width 12.9, Platelet Count 135L, Mean Platelet Volume 7.5, Neutrophils (%) (Auto) 80.4H, Lymphocytes (%) (Auto) 10.5L, Monocytes (%) (Auto) 8.2, Eosinophils (%) (Auto) 0.6, Basophils (%) (Auto) 0.3, Sodium Level 151H, Potassium Level 3.7, Chloride Level 116H, Carbon Dioxide Level 27, Anion Gap 8, Blood Urea Nitrogen 38H, Creatinine 1.9H, Estimat Glomerular Filtration Rate , Glucose Level 202H, Calcium Level 8.5, Total Bilirubin 9.1H, Direct Bilirubin 7.9H, Aspartate Amino Transf (AST/SGOT) 58H, Alanine Aminotransferase (ALT/SGPT) 35, Alkaline Phosphatase 220H, Total Protein 6.1L, Albumin 1.6L, Globulin 4.5, Albumin/ Globulin Ratio 0.4L Height (Feet): 5 Height (Inches): 6.00 Weight (Pounds): 159 Cardiovascular: normal rate Respiratory/Chest: decreased breath sounds Abdomen: distended Jose Ashraf MD Dec 10, 2019 11:59
[2019-12-10 12:00] VITALS: BP 116/61
--- NOTE | 2019-12-10 12:12 | NUR ---
RD ASSESSMENT & RECOMMENDATIONS SEE CARE ACTIVITY FOR COMPLETE ASSESSMENT DAILY ESTIMATED NEEDS: Needs based on DM, cardiac 67 kg adj 25-30 kcals/kg total kcals 1-1.3 g protein/kg 67-87 g total protein 20-25 mL/kg total fluid mLs NUTRITION DIAGNOSIS: * Swallowing difficulty R/T dysphagia as evidenced by pt on liquify pureed, NTL, pt appears to be high risk for aspiration even on the lowest dysphagia diet, now w/ an order for NGT insertion. * Altered nutrition related lab values r/t diabetes, clinical condition as evidenced by elev BGs (202 159), A1C of 7.2, low phos (2.0 -> wnl), low K (3.3 -> wnl), elev T bili (5.7 ->9.1). CURRENT DIET:CCHO MED, LIQUIFY PUREED, NTL PO DIET RECOMMENDATIONS: IF SAFE FOR ORAL DIET -> CCHO MED, LOW NA, LOW FAT/ texture per RIPPER OPERATOR ENTERAL NUTRITION RECOMMENDATIONS: Glucerna 1.2 @ 60ml/hr x 24 hrs to provide 1440ml, 1728kcal, 86g prot, 1159ml free water * W/ GI access, initiate Glucerna 1.2 @ 20ml/hr x 6 hrs * Advance 10ml q 4-6 hrs as tolerated to goal rate * HOB over 30 degrees/ water flush per MD. ADDITIONAL RECOMMENDATIONS: * Calibrated bed scale wt (bedscale 180lbs vs EMR wt 159lbs) * Monitor BGs closely, need for long acting insulin * Monitor lytes closely, replete as needed * TF rec as above w/ GI access: w/ an order for NGT insertion -> monitor POC. RIPPER OPERATOR recommends half-way nonoral feeds * Monitor liver fxn: T bili rising
--- NOTE | 2019-12-10 13:41 | NUR ---
CASE MANAGEMENT: REVIEW 12/10/2019 SI:BILIARY OBSTRUCTION. PNA 97.0 AX 97 22 116/61 NC 3L 97% PLT 135 NA 151 CO2 116 BUN 38 CREAT 1.9 GLU 202 AST 58 ALK-PHOS 220 TOT BILI 9.1 DIRECT BILI 7.9 ALBUMIN 1.6 IS:ZOSYN IV Q8H CARDIZEM PO Q8H D5W @ 100MLS/HR SS INSULIN K-DUR PO BID PROTONIX PO BID FLOMAX QHS RISPERIDONE Q12H NEB TX Q4H PRN PLAN: GI CONSULT ~~~MRCP ~~~~~ SDU STATUS
--- NOTE | 2019-12-10 14:51 | Surgery Progress Note ---
Surgery Progress Note Subjective Additional Comments leukocytosis resolved comfortable appearing labs improved Objective Last 24 Hour Vital Signs Date Time Temp Pulse Resp B/P (MAP) Pulse Ox O2 Delivery O2 Flow Rate FiO2 12/10/19 12:00 Nasal Cannula 3.0 12/10/19 12:00 97.0 97 22 116/61 (79) 97 12/10/19 08:00 Nasal Cannula 3.0 12/10/19 08:00 97.5 78 16 123/52 (75) 95 12/10/19 08:00 76 12/10/19 07:06 96 Nasal Cannula 2.0 28 12/10/19 07:05 79 20 96 Nasal Cannula 2.0 28 12/10/19 06:37 88 123/52 12/10/19 04:00 88 12/10/19 04:00 99.0 102 20 123/52 (75) 95 12/10/19 04:00 Nasal Cannula 3.0 12/10/19 00:00 99.9 106 24 119/54 (75) 97 12/10/19 00:00 107 12/10/19 00:00 Nasal Cannula 3.0 12/09/19 23:20 99.9 12/09/19 22:50 103 115/60 12/09/19 20:00 103 12/09/19 20:00 100.3 109 24 115/60 (78) 97 12/09/19 20:00 Nasal Cannula 3.0 12/09/19 19:49 106 19 96 Nasal Cannula 3.0 32 12/09/19 19:49 96 Nasal Cannula 3.0 32 12/09/19 16:00 96 12/09/19 16:00 Nasal Cannula 3.0 12/09/19 16:00 98.9 101 18 129/87 (101) 94 12/09/19 15:05 95 123/54 I&O Intake and Output 12/09/19 12/10/19 19:00 07:00 Intake Total 400 ml 1180 ml Output Total 800 ml 1000 ml Balance -400 ml 180 ml Intake Oral 400 ml 30 ml IV Total 1150 ml Output Urine Total 800 ml 1000 ml # Bowel Movements 1 Dressing: other Wound: other Drains: other Cardiovascular: RSR Respiratory: decreased breath sounds Abdomen: soft, present bowel sounds Extremities: no cyanosis, other Laboratory Tests Test 12/10/19 04:10 White Blood Count 10.8 K/UL (4.8-10.8) Red Blood Count 4.09 M/UL (4.70-6.10) L Hemoglobin 12.5 G/DL (14.2-18.0) L Hematocrit 37.5 % (42.0-52.0) L Mean Corpuscular Volume 92 FL (80-99) Mean Corpuscular Hemoglobin 30.6 PG (27.0-31.0) Mean Corpuscular Hemoglobin Concent 33.3 G/DL (32.0-36.0) Red Cell Distribution Width 12.9 % (11.6-14.8) Platelet Count 135 K/UL (150-450) L Mean Platelet Volume 7.5 FL (6.5-10.1) Neutrophils (%) (Auto) 80.4 % (45.0-75.0) H Lymphocytes (%) (Auto) 10.5 % (20.0-45.0) L Monocytes (%) (Auto) 8.2 % (1.0-10.0) Eosinophils (%) (Auto) 0.6 % (0.0-3.0) Basophils (%) (Auto) 0.3 % (0.0-2.0) Sodium Level 151 MMOL/L (136-145) H Potassium Level 3.7 MMOL/L (3.5-5.1) Chloride Level 116 MMOL/L (98-107) H Carbon Dioxide Level 27 MMOL/L (21-32) Anion Gap 8 mmol/L (5-15) Blood Urea Nitrogen 38 mg/dL (7-18) H Creatinine 1.9 MG/DL (0.55-1.30) H Estimat Glomerular Filtration Rate mL/min (>60) Glucose Level 202 MG/DL (74-106) H Calcium Level 8.5 MG/DL (8.5-10.1) Total Bilirubin 9.1 MG/DL (0.2-1.0) H Direct Bilirubin 7.9 MG/DL (0.0-0.3) H Aspartate Amino Transf (AST/SGOT) 58 U/L (15-37) H Alanine Aminotransferase (ALT/SGPT) 35 U/L (12-78) Alkaline Phosphatase 220 U/L (46-116) H Total Protein 6.1 G/DL (6.4-8.2) L Albumin 1.6 G/DL (3.4-5.0) L Globulin 4.5 g/dL Albumin/Globulin Ratio 0.4 (1.0-2.7) L Plan Problems: (1) Sepsis Assessment & Plan: 89-year-old male with leukocytosis, fevers, tachycardia, abnormal labs. Abdominal ultrasound nondiagnostic MRCP pending - eval for ERCP given condition appreciate GI input in discussion with GI likely believed to be related to hepatic insufficiency Continue IV antibiotics per infectious disease No acute surgical invention planned IV fluids Trend labs Resuscitation We will follow with recommendations Thank you for let me participate in patient's care (2) Biliary obstruction Assessment & Plan: Findings: The study was limited due to bowel gas body habitus. The liver is mildly heterogeneous with questionable surface nodularity. Doppler interrogation of the main portal vein shows patency with hepatopedal, monophasic flow. There is no biliary ductal dilatation identified. Gallbladder is grossly unremarkable. There demonstrated part of the pancreas, aorta and IVC show no obvious abnormalities. The structures are poorly seen. Both kidneys are poorly seen. There is no obvious hydronephrosis. IMPRESSION: No acute findings Very limited study Gallbladder is distended, but there are no gallstones and no wall thickening demonstrated. Negative for dilated bile ducts Equivocally mildly increased renal echogenicity, if real could indicate medical renal disease. Negative for evidence of hydronephrosis (3) Elevated LFTs Ajit Mcnulty Dec 10, 2019 14:51
[2019-12-10 16:00] VITALS: BP 121/60
--- NOTE | 2019-12-10 19:00 | Consultation ---
DATE OF CONSULTATION: 12/10/2019 CONSULTING PHYSICIAN: Melly Estrada M.D. REFERRING PHYSICIAN: Gurmeet Elizabeth M.D. HISTORY OF PRESENT ILLNESS: The patient is an 89-year-old male with history of multiple medical issues including renal failure, Alzheimer dementia, sepsis who has been admitted to the hospital due to UTI. The patient also has congestive heart failure, hyperglycemia, diabetes mellitus. The patient is confused, easily agitated. They have attempted to place the patient in NG-tube, however, the patient is pulling it out, as he is agitated. PAST PSYCHIATRIC HISTORY: Dementia, agitation. PAST MEDICAL HISTORY: As above. ALLERGIES: No known drug allergies. SUBSTANCE ABUSE HISTORY: No known history of illicit drug use or alcohol. MENTAL STATUS EXAMINATION: The patient is confused, disoriented. Mood is agitated. Affect is flat. Thought process is concrete. Thought content, no suicidal or homicidal ideation. Cognition is impaired. Insight and judgment is impaired. ASSESSMENT: [place] I Dementia, Alzheimer's type. Acute toxic encephalopathy. [place] II Deferred. [place] III As above. [place] IV Low. [place] V 25. PLAN: 1. We will start the patient on Seroquel p.r.n. 2. Soft restraints. 3. We will continue to follow and readjust the medications. Melly Estrada M.D. DR: SU JOB#: [id number] CC:
--- NOTE | 2019-12-10 19:20 | NUR ---
HAND-OFF: Report given to JAMAICA Manjarrez. Patient in stable condition. Endorsed care.
--- NOTE | 2019-12-10 19:22 | Diagnostic Imaging Report ---
EXAM: XR Abdomen, 2 Views CLINICAL HISTORY: NGT TECHNIQUE: Frontal view of the abdomen/pelvis with upright view of the abdomen. COMPARISON: No relevant prior studies available. FINDINGS: See Impression. IMPRESSION: 1. Transesophageal catheter side port is below the GE junction with tip at the fundus of the stomach. This should be satisfactory for use. 2. No bowel obstruction. No gross evidence for free air. 3. Elevation of the right hemidiaphragm with adjacent subsegmental atelectasis. 4. Degenerative spine changes.
--- NOTE | 2019-12-10 19:25 | NUR ---
NURSE NOTES: Received report from SWETA RN using SBAR. Patient is awake , agitated. keeps trying to pull out NG tube , NC and IV on both arms. on bilateral soft wrist restraints with no skin issues. Patient is on NC 3L with no respiratory distress noted. O2 saturation 96-100%. Denies any pain at this time.vs stable. Afebrile. SR on monitoring analyst.condom cath in place with clear yellow urine draining well. NG tube in left nares in place, patent.Placement confirmed with Abdomen x-ray. IV to RFA 18G intact and D5W running at 100/hr. bed in locked ,low position , alarm is on.will continue plan of care.
[2019-12-10 20:00] VITALS: BP 118/57
--- NOTE | 2019-12-10 21:52 | General Progress Note ---
Assessment/Plan Problem List: (1) Sepsis ICD Codes: A41.9 - Sepsis, unspecified organism SNOMED: 77326868 Qualifiers: Qualified Codes: A41.9 - Sepsis, unspecified organism; R65.20 - Severe sepsis without septic shock; N17.9 - Acute kidney failure, unspecified (2) Alzheimer's dementia ICD Codes: G30.9 - Alzheimer's disease, unspecified; F02.80 - Dementia in other diseases classified elsewhere without behavioral disturbance SNOMED: 71751271 Qualifiers: Qualified Codes: G30.9 - Alzheimer's disease, unspecified; F02.80 - Dementia in other diseases classified elsewhere without behavioral disturbance (3) Elevated LFTs ICD Codes: R94.5 - Abnormal results of liver function studies SNOMED: 204539047, 413302949 (4) Cholestasis ICD Codes: K83.1 - Obstruction of bile duct SNOMED: 87916530 (5) Hyperbilirubinemia ICD Codes: E80.6 - Other disorders of bilirubin metabolism SNOMED: 54383798 (6) Left lower lobe pneumonia ICD Codes: J18.9 - Pneumonia, unspecified organism SNOMED: 961942229 Qualifiers: Qualified Codes: J18.9 - Pneumonia, unspecified organism (7) Renal failure (ARF), acute on chronic ICD Codes: N17.9 - Acute kidney failure, unspecified; N18.9 - Chronic kidney disease, unspecified SNOMED: 239081982 Qualifiers: Qualified Codes: N17.9 - Acute kidney failure, unspecified; N18.3 - Chronic kidney disease, stage 3 (moderate) Status: unchanged Assessment/Plan: still elevated lft sepsis pna dry hypernatremia azotemia resp insuff peg per dr shiela delcid.elevated sugar Subjective ROS Limited/Unobtainable: Yes Allergies: Coded Allergies: No Known Allergies (Unverified , 03/19/17) Objective Last 24 Hour Vital Signs Date Time Temp Pulse Resp B/P (MAP) Pulse Ox O2 Delivery O2 Flow Rate FiO2 12/10/19 20:00 85 12/10/19 20:00 98.2 88 18 118/57 (77) 99 12/10/19 16:00 86 12/10/19 16:00 98.1 80 18 121/60 (80) 97 12/10/19 16:00 Nasal Cannula 3.0 12/10/19 12:00 85 12/10/19 12:00 Nasal Cannula 3.0 12/10/19 12:00 97.0 97 22 116/61 (79) 97 12/10/19 08:00 Nasal Cannula 3.0 12/10/19 08:00 97.5 78 16 123/52 (75) 95 12/10/19 08:00 76 12/10/19 07:06 96 Nasal Cannula 2.0 28 12/10/19 07:05 79 20 96 Nasal Cannula 2.0 28 12/10/19 06:37 88 123/52 12/10/19 04:00 88 12/10/19 04:00 99.0 102 20 123/52 (75) 95 12/10/19 04:00 Nasal Cannula 3.0 12/10/19 00:00 99.9 106 24 119/54 (75) 97 12/10/19 00:00 107 12/10/19 00:00 Nasal Cannula 3.0 12/09/19 23:20 99.9 12/09/19 22:50 103 115/60 Intake and Output 12/09/19 12/10/19 18:59 06:59 Intake Total 400 ml 1080 ml Output Total 800 ml 1000 ml Balance -400 ml 80 ml Intake Oral 400 ml 30 ml IV Total 1050 ml Output Urine Total 800 ml 1000 ml # Bowel Movements 1 Laboratory Tests 12/10/19 04:10: White Blood Count 10.8, Red Blood Count 4.09L, Hemoglobin 12.5L, Hematocrit 37.5L, Mean Corpuscular Volume 92, Mean Corpuscular Hemoglobin 30.6, Mean Corpuscular Hemoglobin Concent 33.3, Red Cell Distribution Width 12.9, Platelet Count 135L, Mean Platelet Volume 7.5, Neutrophils (%) (Auto) 80.4H, Lymphocytes (%) (Auto) 10.5L, Monocytes (%) (Auto) 8.2, Eosinophils (%) (Auto) 0.6, Basophils (%) (Auto) 0.3, Sodium Level 151H, Potassium Level 3.7, Chloride Level 116H, Carbon Dioxide Level 27, Anion Gap 8, Blood Urea Nitrogen 38H, Creatinine 1.9H, Estimat Glomerular Filtration Rate , Glucose Level 202H, Calcium Level 8.5, Total Bilirubin 9.1H, Direct Bilirubin 7.9H, Aspartate Amino Transf (AST/SGOT) 58H, Alanine Aminotransferase (ALT/SGPT) 35, Alkaline Phosphatase 220H, Total Protein 6.1L, Albumin 1.6L, Globulin 4.5, Albumin/ Globulin Ratio 0.4L Height (Feet): 5 Height (Inches): 6.00 Weight (Pounds): 159 General Appearance: lethargic, confused Gurmeet Elizabeth MD Dec 10, 2019 21:51
[2019-12-10] MEDS: Tamsulosin 0.4mg cap ORAL SCH (21:59)
[2019-12-11] VITALS: BP 110/57
--- NOTE | 2019-12-11 01:07 | NUR ---
NURSE NOTES: Patient still restless and pulled out NG tube.no acute distress noted. Turned and repositioned.Performed sponge bath.oral care given.
--- NOTE | 2019-12-11 02:35 | NUR ---
TRANSFER TO FLOOR: Patient transferred to .2E Room 212-2.Report given to Erwin BERUMEN. Checked Belongings and medications given to RN.Patient in stable condition upon transfer. Family and or S/O informed of transfer.
--- NOTE | 2019-12-11 03:49 | Diagnostic Imaging Report ---
EXAM: XR Abdomen, 2 Views CLINICAL HISTORY: NGT TECHNIQUE: Frontal view of the abdomen/pelvis with upright view of the abdomen. COMPARISON: No relevant prior studies available. FINDINGS: Lower thorax: Transesophageal catheter identified with side port below the GE junction tip at the proximal stomach. Bandlike opacity involving the right and left mid lung zone compatible with discoid atelectasis or scarring. Fullness of the central interstitial structures and paranasal structures. No dense consolidations. Intraperitoneal space: No free air. Gastrointestinal tract: Unremarkable. No dilation. Bones/joints: Unremarkable. IMPRESSION: 1. Satisfactory position of NG tube with tip at the proximal stomach. 2. Low lung volumes limits cardiopulmonary assessment. When able, suggest PA and lateral upright chest radiography for further evaluation.
[2019-12-11 04:00] VITALS: BP 123/65
[2019-12-11] MEDS ORDERED: Acetaminophen 650 MG SUPP RECTAL PRN (04:15)
[2019-12-11 05:59] LABS: BASOPHILS % (AUTO) 0.3 % (0.0-2.0); EOSINOPHILS % (AUTO) 2.4 % (0.0-3.0); HEMATOCRIT 34.8 % (42.0-52.0); HEMOGLOBIN 11.8 G/DL (14.2-18.0); LYMPHOCYTES % (AUTO) 12.9 % (20.0-45.0); MEAN CORPUSCULAR VOLUME 92 FL (80-99); MONOCYTES % (AUTO) 6.5 % (1.0-10.0); NEUTROPHILS % (AUTO) 77.8 % (45.0-75.0); PLATELET COUNT 139 K/UL (150-450); RED BLOOD COUNT 3.78 M/UL (4.70-6.10); WHITE BLOOD COUNT 9.2 K/UL (4.8-10.8)
[2019-12-11] MEDS: dilTIAZem HCl 30mg tab ORAL SCH ×3 (06:00→22:27)
[2019-12-11] MEDS: Piperacillin/Tazobactam 3.375 GM in NS 110 ML IVPB SCH ×3 (06:00→22:26)
[2019-12-11 06:37] LABS: ALANINE AMINOTRANSFERASE 33 U/L (12-78); ALBUMIN 1.4 G/DL (3.4-5.0); ALBUMIN/GLOBULIN RATIO 0.3 (1.0-2.7); ALKALINE PHOSPHATASE 208 U/L (46-116); ANION GAP 5 mmol/L (5-15); ASPARTATE AMINO TRANSFERASE 57 U/L (15-37); BILIRUBIN,TOTAL 9.7 MG/DL (0.2-1.0); BLOOD UREA NITROGEN 31 mg/dL (7-18); CALCIUM 8.3 MG/DL (8.5-10.1); CARBON DIOXIDE 30 MMOL/L (21-32); CHLORIDE 113 MMOL/L (98-107); CREATININE 1.7 MG/DL (0.55-1.30); POTASSIUM 3.7 MMOL/L (3.5-5.1); SODIUM 147 MMOL/L (136-145)
[2019-12-11 06:38] LABS: BILIRUBIN,DIRECT 7.8 MG/DL (0.0-0.3)
[2019-12-11] MEDS: NovoLOG Insulin Flexpen SUBQ SCH ×4 (06:51→21:00)
--- NOTE | 2019-12-11 07:55 | NUR ---
NURSE NOTES: Received bedside report from Vanessa BERUMEN. Pt. in bed, awake, confused. No sign of distress. On O2 at 3LPM via NC. No grimacing noted. NGT at right nare in placed. Bilateral soft wrist restrains in placed. (+) CMS. IV at right FA #18g. in placed patent/intact D5W at 100cc/hr. And left FA #22g. in placed SL. Bed in low position, locked. Call light within reach. Will cont. to monitor.
[2019-12-11 08:00] VITALS: BP 122/63
[2019-12-11] MEDS: Docusate 100mg cap ORAL SCH ×3 (09:27→18:00)
--- NOTE | 2019-12-11 10:22 | Pulmonology Progress Note ---
Assessment/Plan Assessment/Plan IMPRESSION: 1. Left lower lobe pneumonia. Reviewed CXR with radiology; no definite pneumonia seen. 2. Sepsis with lactic acidemia. 3. Acute renal insufficiency. 4. History of CHF. 5. Dementia. 6. Jaundice; has intra-abdominal/biliary issue; GI and surgery following DISCUSSION: Fluid resuscitation. Continue antibiotics. I will follow carefully as respiratory communications consultant. GI/surgery following. Currently saturating well on low flow O2 Kevin Lincoln M.D. Subjective Interval Events: None new Constitutional: Reports: no symptoms HEENT: Repors: no symptoms Respiratory: Reports: no symptoms Cardiovascular: Reports: no symptoms Gastrointestinal/Abdominal: Reports: no symptoms Allergies: Coded Allergies: No Known Allergies (Unverified , 03/19/17) Objective Last 24 Hour Vital Signs Date Time Temp Pulse Resp B/P (MAP) Pulse Ox O2 Delivery O2 Flow Rate FiO2 12/11/19 08:14 74 18 97 Nasal Cannula 2.0 28 12/11/19 08:14 97 Nasal Cannula 2.0 28 12/11/19 08:00 97.7 85 18 122/63 (82) 99 12/11/19 04:00 81 12/11/19 04:00 97.6 81 20 123/65 (84) 96 12/11/19 04:00 Nasal Cannula 3.0 12/11/19 00:00 Nasal Cannula 3.0 12/11/19 00:00 83 12/11/19 00:00 97.4 82 20 110/57 (74) 99 12/10/19 22:00 85 118/57 12/10/19 20:00 Nasal Cannula 3.0 12/10/19 20:00 85 12/10/19 20:00 98.2 88 18 118/57 (77) 99 12/10/19 16:00 86 12/10/19 16:00 98.1 80 18 121/60 (80) 97 12/10/19 16:00 Nasal Cannula 3.0 12/10/19 12:00 85 12/10/19 12:00 Nasal Cannula 3.0 12/10/19 12:00 97.0 97 22 116/61 (79) 97 Intake and Output 12/10/19 12/11/19 19:00 07:00 Intake Total 30 ml 632.5 ml Output Total 1000 ml 1025 ml Balance -970 ml -392.5 ml Intake Oral 30 ml IV Total 632.5 ml Output Urine Total 1000 ml 1025 ml # Bowel Movements 1 1 General Appearance: no acute distress HEENT: normocephalic Respiratory/Chest: chest wall non-tender Cardiovascular: normal peripheral pulses Abdomen: normal bowel sounds Laboratory Tests 12/11/19 05:28: White Blood Count 9.2, Red Blood Count 3.78L, Hemoglobin 11.8L, Hematocrit 34.8L , Mean Corpuscular Volume 92, Mean Corpuscular Hemoglobin 31.2H, Mean Corpuscular Hemoglobin Concent 33.9, Red Cell Distribution Width 13.0, Platelet Count 139L, Mean Platelet Volume 7.6, Neutrophils (%) (Auto) 77.8H, Lymphocytes (%) (Auto) 12.9L, Monocytes (%) (Auto) 6.5, Eosinophils (%) (Auto) 2.4, Basophils (%) (Auto) 0.3, Sodium Level 147H, Potassium Level 3.7, Chloride Level 113H, Carbon Dioxide Level 30, Anion Gap 5, Blood Urea Nitrogen 31H, Creatinine 1.7H, Estimat Glomerular Filtration Rate , Glucose Level 181H, Calcium Level 8.3L, Phosphorus Level 3.0, Magnesium Level 1.5L, Total Bilirubin 9.7H, Direct Bilirubin 7.8H, Aspartate Amino Transf (AST/SGOT) 57H, Alanine Aminotransferase (ALT/SGPT) 33, Alkaline Phosphatase 208H, C-Reactive Protein, Quantitative 20.1H, Pro-B-Type Natriuretic Peptide 899H, Total Protein 5.9L, Albumin 1.4L, Globulin 4.5, Albumin/Globulin Ratio 0.3L Current Medications Medications (Trade) Dose Ordered Sig/Filemon Route PRN Reason Start Time Stop Time Status Last Admin Dose Admin Acetaminophen (Tylenol) 325 mg Q6H PRN ORAL Mild Pain/Temp > 100.5 12/11/19 03:30 01/06/20 09:29 Acetaminophen (Tylenol) 650 mg Q4H PRN RECTAL Mild Pain (Pain Scale 1-3) 12/11/19 04:15 01/09/20 00:14 Dextrose 1,000 ml @ 100 mls/hr Q10H IV 12/11/19 02:45 01/08/20 08:29 12/11/19 02:45 Dextrose (Dextrose 50%) 25 ml Q30M PRN IV Hypoglycemia 12/11/19 03:15 01/05/20 11:44 Dextrose (Dextrose 50%) 50 ml Q30M PRN IV Hypoglycemia 12/11/19 03:15 01/05/20 11:44 Diltiazem HCl (Cardizem) 30 mg EVERY 8 HOURS ORAL 12/11/19 06:00 01/05/20 13:59 Docusate Sodium (Colace) 100 mg TID ORAL 12/11/19 09:00 01/05/20 17:59 12/11/19 09:27 Insulin Aspart (NovoLOG) BEFORE MEALS AND HS SUBQ 12/11/19 06:30 01/05/20 16:29 12/11/19 06:51 Pantoprazole (Protonix) 40 mg BID ORAL 12/11/19 09:00 01/05/20 14:44 12/11/19 09:27 Piperacillin Sod/ Tazobactam Sod 3.375 gm/Sodium Chloride 110 ml @ 27.5 mls/hr EVERY 8 HOURS IVPB 12/11/19 06:00 12/16/19 13:59 12/11/19 06:00 Potassium Chloride (K-Dur) 40 meq TWICE A DAY ORAL 12/11/19 09:00 01/08/20 09:59 12/11/19 09:27 Quetiapine Fumarate (SEROqueL) 25 mg EVERY 6 HOURS PRN ORAL For Anxiety 12/11/19 03:00 01/09/20 02:59 Risperidone (RisperDAL) 0.5 mg Q12HR ORAL 12/11/19 09:00 01/05/20 08:59 12/11/19 09:27 Tamsulosin HCl (Flomax) 0.4 mg BEDTIME ORAL 12/11/19 21:00 01/05/20 20:59 Kevin Lincoln MD Dec 11, 2019 10:22
[2019-12-11 12:00] VITALS: BP 153/93
--- NOTE | 2019-12-11 12:33 | Cardiac Electrophysiology PN ---
Assessment/Plan Assessment/Plan 1. Hypertension. On Cardizem 30 mg every 8 hours via NG tube. Echo Nl EF 2. Shortness of breath secondary to pneumonia. 3. Nonsustained VT 5 beats. K was replaced. Nl EF 4. Pneumonia, on vancomycin and Zosyn per Dr. Barth. 5. Renal failure. 6. Lactic acidosis. 7. Hyperbilirubinemia with total bilirubin of 6.6, direct bilirubin of 5.5. Fu Dr Escalante MRI abdomen couldn't be done as unable to lay flat 8. Renal failure with BUN of 35 and creatinine of 2.0. 9. Dysphagia. Passed swallow eval 10. Dementia. DW RN Subjective Subjective In SR. Confused in restraints. Passed swallow eval. No more VT Objective Last 24 Hour Vital Signs Date Time Temp Pulse Resp B/P (MAP) Pulse Ox O2 Delivery O2 Flow Rate FiO2 12/11/19 08:14 74 18 97 Nasal Cannula 2.0 28 12/11/19 08:14 97 Nasal Cannula 2.0 28 12/11/19 08:00 97.7 85 18 122/63 (82) 99 12/11/19 04:00 81 12/11/19 04:00 97.6 81 20 123/65 (84) 96 12/11/19 04:00 Nasal Cannula 3.0 12/11/19 00:00 Nasal Cannula 3.0 12/11/19 00:00 83 12/11/19 00:00 97.4 82 20 110/57 (74) 99 12/10/19 22:00 85 118/57 12/10/19 20:00 Nasal Cannula 3.0 12/10/19 20:00 85 12/10/19 20:00 98.2 88 18 118/57 (77) 99 12/10/19 16:00 86 12/10/19 16:00 98.1 80 18 121/60 (80) 97 12/10/19 16:00 Nasal Cannula 3.0 Intake and Output 12/10/19 12/11/19 19:00 07:00 Intake Total 30 ml 632.5 ml Output Total 1000 ml 1025 ml Balance -970 ml -392.5 ml Intake Oral 30 ml IV Total 632.5 ml Output Urine Total 1000 ml 1025 ml # Bowel Movements 1 1 Laboratory Tests Test 12/11/19 05:28 White Blood Count 9.2 K/UL (4.8-10.8) Red Blood Count 3.78 M/UL (4.70-6.10) L Hemoglobin 11.8 G/DL (14.2-18.0) L Hematocrit 34.8 % (42.0-52.0) L Mean Corpuscular Volume 92 FL (80-99) Mean Corpuscular Hemoglobin 31.2 PG (27.0-31.0) H Mean Corpuscular Hemoglobin Concent 33.9 G/DL (32.0-36.0) Red Cell Distribution Width 13.0 % (11.6-14.8) Platelet Count 139 K/UL (150-450) L Mean Platelet Volume 7.6 FL (6.5-10.1) Neutrophils (%) (Auto) 77.8 % (45.0-75.0) H Lymphocytes (%) (Auto) 12.9 % (20.0-45.0) L Monocytes (%) (Auto) 6.5 % (1.0-10.0) Eosinophils (%) (Auto) 2.4 % (0.0-3.0) Basophils (%) (Auto) 0.3 % (0.0-2.0) Sodium Level 147 MMOL/L (136-145) H Potassium Level 3.7 MMOL/L (3.5-5.1) Chloride Level 113 MMOL/L (98-107) H Carbon Dioxide Level 30 MMOL/L (21-32) Anion Gap 5 mmol/L (5-15) Blood Urea Nitrogen 31 mg/dL (7-18) H Creatinine 1.7 MG/DL (0.55-1.30) H Estimat Glomerular Filtration Rate mL/min (>60) Glucose Level 181 MG/DL (74-106) H Calcium Level 8.3 MG/DL (8.5-10.1) L Phosphorus Level 3.0 MG/DL (2.5-4.9) Magnesium Level 1.5 MG/DL (1.8-2.4) L Total Bilirubin 9.7 MG/DL (0.2-1.0) H Direct Bilirubin 7.8 MG/DL (0.0-0.3) H Aspartate Amino Transf (AST/SGOT) 57 U/L (15-37) H Alanine Aminotransferase (ALT/SGPT) 33 U/L (12-78) Alkaline Phosphatase 208 U/L (46-116) H C-Reactive Protein, Quantitative 20.1 mg/dL (0.00-0.90) H Pro-B-Type Natriuretic Peptide 899 pg/mL (0-125) H Total Protein 5.9 G/DL (6.4-8.2) L Albumin 1.4 G/DL (3.4-5.0) L Globulin 4.5 g/dL Albumin/Globulin Ratio 0.3 (1.0-2.7) L Objective HEAD AND NECK: Shows no JVD. LUNGS: Decreased breath sounds. CARDIOVASCULAR: Shows regular S1 and S2 with no gallop. ABDOMEN: Soft. EXTREMITIES: No pitting edema. Kyle Reynoso MD Dec 11, 2019 12:33
--- NOTE | 2019-12-11 12:37 | Nephrology Progress Note ---
Assessment/Plan Problem List: (1) Renal failure (ARF), acute on chronic (2) Alzheimer's dementia (3) Sepsis (4) UTI (urinary tract infection) (5) High bilirubin Assessment Acute on Chronic renal failure- CHF- Past echo 55% EjFx Sepsis, High Lactate- Leukocytosis Left lower lobe pneumonia Alzheimer's dementia UTI (urinary tract infection) Hyperglycemia, DM II Plan mag supplement 2D echo noted KCL IV and Po as needed slow hydrate- D5w monitor renal parameters correct electrolytes BP and BS in check per orders Subjective ROS Limited/Unobtainable: No Constitutional: Reports: malaise, weakness Objective Objective Last 24 Hour Vital Signs Date Time Temp Pulse Resp B/P (MAP) Pulse Ox O2 Delivery O2 Flow Rate FiO2 12/11/19 08:14 74 18 97 Nasal Cannula 2.0 28 12/11/19 08:14 97 Nasal Cannula 2.0 28 12/11/19 08:00 97.7 85 18 122/63 (82) 99 12/11/19 04:00 81 12/11/19 04:00 97.6 81 20 123/65 (84) 96 12/11/19 04:00 Nasal Cannula 3.0 12/11/19 00:00 Nasal Cannula 3.0 12/11/19 00:00 83 12/11/19 00:00 97.4 82 20 110/57 (74) 99 12/10/19 22:00 85 118/57 12/10/19 20:00 Nasal Cannula 3.0 12/10/19 20:00 85 12/10/19 20:00 98.2 88 18 118/57 (77) 99 12/10/19 16:00 86 12/10/19 16:00 98.1 80 18 121/60 (80) 97 12/10/19 16:00 Nasal Cannula 3.0 Intake and Output 12/10/19 12/11/19 19:00 07:00 Intake Total 30 ml 632.5 ml Output Total 1000 ml 1025 ml Balance -970 ml -392.5 ml Intake Oral 30 ml IV Total 632.5 ml Output Urine Total 1000 ml 1025 ml # Bowel Movements 1 1 Laboratory Tests 12/11/19 05:28: White Blood Count 9.2, Red Blood Count 3.78L, Hemoglobin 11.8L, Hematocrit 34.8L , Mean Corpuscular Volume 92, Mean Corpuscular Hemoglobin 31.2H, Mean Corpuscular Hemoglobin Concent 33.9, Red Cell Distribution Width 13.0, Platelet Count 139L, Mean Platelet Volume 7.6, Neutrophils (%) (Auto) 77.8H, Lymphocytes (%) (Auto) 12.9L, Monocytes (%) (Auto) 6.5, Eosinophils (%) (Auto) 2.4, Basophils (%) (Auto) 0.3, Sodium Level 147H, Potassium Level 3.7, Chloride Level 113H, Carbon Dioxide Level 30, Anion Gap 5, Blood Urea Nitrogen 31H, Creatinine 1.7H, Estimat Glomerular Filtration Rate , Glucose Level 181H, Calcium Level 8.3L, Phosphorus Level 3.0, Magnesium Level 1.5L, Total Bilirubin 9.7H, Direct Bilirubin 7.8H, Aspartate Amino Transf (AST/SGOT) 57H, Alanine Aminotransferase (ALT/SGPT) 33, Alkaline Phosphatase 208H, C-Reactive Protein, Quantitative 20.1H, Pro-B-Type Natriuretic Peptide 899H, Total Protein 5.9L, Albumin 1.4L, Globulin 4.5, Albumin/Globulin Ratio 0.3L Height (Feet): 5 Height (Inches): 6.00 Weight (Pounds): 159 General Appearance: no apparent distress EENT: other - ngt Cardiovascular: normal rate Respiratory/Chest: decreased breath sounds Abdomen: distended Jose Ashraf MD Dec 11, 2019 12:37
--- NOTE | 2019-12-11 13:13 | Surgery Progress Note ---
Surgery Progress Note Subjective Additional Comments bilirubin elevated exam stable kub noted tube in place Objective Last 24 Hour Vital Signs Date Time Temp Pulse Resp B/P (MAP) Pulse Ox O2 Delivery O2 Flow Rate FiO2 12/11/19 08:14 74 18 97 Nasal Cannula 2.0 28 12/11/19 08:14 97 Nasal Cannula 2.0 28 12/11/19 08:00 97.7 85 18 122/63 (82) 99 12/11/19 08:00 Nasal Cannula 3.0 12/11/19 07:42 84 12/11/19 04:00 81 12/11/19 04:00 97.6 81 20 123/65 (84) 96 12/11/19 04:00 Nasal Cannula 3.0 12/11/19 00:00 Nasal Cannula 3.0 12/11/19 00:00 83 12/11/19 00:00 97.4 82 20 110/57 (74) 99 12/10/19 22:00 85 118/57 12/10/19 20:00 Nasal Cannula 3.0 12/10/19 20:00 85 12/10/19 20:00 98.2 88 18 118/57 (77) 99 12/10/19 16:00 86 12/10/19 16:00 98.1 80 18 121/60 (80) 97 12/10/19 16:00 Nasal Cannula 3.0 I&O Intake and Output 12/10/19 12/11/19 19:00 07:00 Intake Total 30 ml 632.5 ml Output Total 1000 ml 1025 ml Balance -970 ml -392.5 ml Intake Oral 30 ml IV Total 632.5 ml Output Urine Total 1000 ml 1025 ml # Bowel Movements 1 1 Dressing: other Wound: other Drains: other Cardiovascular: RSR Respiratory: decreased breath sounds Abdomen: soft, present bowel sounds, non-distended Extremities: no tenderness, no cyanosis Laboratory Tests Test 12/11/19 05:28 White Blood Count 9.2 K/UL (4.8-10.8) Red Blood Count 3.78 M/UL (4.70-6.10) L Hemoglobin 11.8 G/DL (14.2-18.0) L Hematocrit 34.8 % (42.0-52.0) L Mean Corpuscular Volume 92 FL (80-99) Mean Corpuscular Hemoglobin 31.2 PG (27.0-31.0) H Mean Corpuscular Hemoglobin Concent 33.9 G/DL (32.0-36.0) Red Cell Distribution Width 13.0 % (11.6-14.8) Platelet Count 139 K/UL (150-450) L Mean Platelet Volume 7.6 FL (6.5-10.1) Neutrophils (%) (Auto) 77.8 % (45.0-75.0) H Lymphocytes (%) (Auto) 12.9 % (20.0-45.0) L Monocytes (%) (Auto) 6.5 % (1.0-10.0) Eosinophils (%) (Auto) 2.4 % (0.0-3.0) Basophils (%) (Auto) 0.3 % (0.0-2.0) Sodium Level 147 MMOL/L (136-145) H Potassium Level 3.7 MMOL/L (3.5-5.1) Chloride Level 113 MMOL/L (98-107) H Carbon Dioxide Level 30 MMOL/L (21-32) Anion Gap 5 mmol/L (5-15) Blood Urea Nitrogen 31 mg/dL (7-18) H Creatinine 1.7 MG/DL (0.55-1.30) H Estimat Glomerular Filtration Rate mL/min (>60) Glucose Level 181 MG/DL (74-106) H Calcium Level 8.3 MG/DL (8.5-10.1) L Phosphorus Level 3.0 MG/DL (2.5-4.9) Magnesium Level 1.5 MG/DL (1.8-2.4) L Total Bilirubin 9.7 MG/DL (0.2-1.0) H Direct Bilirubin 7.8 MG/DL (0.0-0.3) H Aspartate Amino Transf (AST/SGOT) 57 U/L (15-37) H Alanine Aminotransferase (ALT/SGPT) 33 U/L (12-78) Alkaline Phosphatase 208 U/L (46-116) H C-Reactive Protein, Quantitative 20.1 mg/dL (0.00-0.90) H Pro-B-Type Natriuretic Peptide 899 pg/mL (0-125) H Total Protein 5.9 G/DL (6.4-8.2) L Albumin 1.4 G/DL (3.4-5.0) L Globulin 4.5 g/dL Albumin/Globulin Ratio 0.3 (1.0-2.7) L Plan Problems: (1) Sepsis Assessment & Plan: 89-year-old male with leukocytosis, fevers, tachycardia, abnormal labs. Abdominal ultrasound nondiagnostic MRCP pending - eval for ERCP given condition appreciate GI input in discussion with GI likely believed to be related to hepatic insufficiency Continue IV antibiotics per infectious disease No acute surgical invention planned IV fluids Trend labs Resuscitation We will follow with recommendations Thank you for let me participate in patient's care (2) Biliary obstruction Assessment & Plan: Findings: The study was limited due to bowel gas body habitus. The liver is mildly heterogeneous with questionable surface nodularity. Doppler interrogation of the main portal vein shows patency with hepatopedal, monophasic flow. There is no biliary ductal dilatation identified. Gallbladder is grossly unremarkable. There demonstrated part of the pancreas, aorta and IVC show no obvious abnormalities. The structures are poorly seen. Both kidneys are poorly seen. There is no obvious hydronephrosis. IMPRESSION: No acute findings Very limited study Gallbladder is distended, but there are no gallstones and no wall thickening demonstrated. Negative for dilated bile ducts Equivocally mildly increased renal echogenicity, if real could indicate medical renal disease. Negative for evidence of hydronephrosis (3) Elevated LFTs Ajit Mcnulty Dec 11, 2019 13:13
[2019-12-11 16:00] VITALS: BP 135/70
--- NOTE | 2019-12-11 16:29 | General Progress Note ---
Assessment/Plan Status: unchanged Assessment/Plan: Assessment/Plan Problems: (1) Elevated LFTs suspect hepatitis (? autoimmune, ? 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 ICD Codes: R94.5 - Abnormal results of liver function studies SNOMED: 454001261, 728102239 (2) No Biliary obstruction on abdominal ultrasound SNOMED: 956141702 (3) Cholestasis ICD Codes: K83.1 - Obstruction of bile duct SNOMED: 47586089 (4) Hyperbilirubinemia ICD Codes: E80.6 - Other disorders of bilirubin metabolism SNOMED: 73351437 Status: unchanged Assessment/Plan Check viral serologies check autoimmune markers d/c all non vital meds check NH3 check INR follow LFT Subjective Allergies: Coded Allergies: No Known Allergies (Unverified , 03/19/17) Subjective confused restrained NGT in place Objective Last 24 Hour Vital Signs Date Time Temp Pulse Resp B/P (MAP) Pulse Ox O2 Delivery O2 Flow Rate FiO2 12/11/19 16:00 Nasal Cannula 3.0 12/11/19 14:32 109 153/93 12/11/19 12:00 Nasal Cannula 3.0 12/11/19 12:00 98.2 109 20 153/93 (113) 94 12/11/19 11:46 83 12/11/19 08:14 74 18 97 Nasal Cannula 2.0 28 12/11/19 08:14 97 Nasal Cannula 2.0 28 12/11/19 08:00 97.7 85 18 122/63 (82) 99 12/11/19 08:00 Nasal Cannula 3.0 12/11/19 07:42 84 12/11/19 04:00 81 12/11/19 04:00 97.6 81 20 123/65 (84) 96 12/11/19 04:00 Nasal Cannula 3.0 12/11/19 00:00 Nasal Cannula 3.0 12/11/19 00:00 83 12/11/19 00:00 97.4 82 20 110/57 (74) 99 12/10/19 22:00 85 118/57 12/10/19 20:00 Nasal Cannula 3.0 12/10/19 20:00 85 12/10/19 20:00 98.2 88 18 118/57 (77) 99 Intake and Output 1/31/20 2/1/20 19:00 07:00 Intake Total 30 ml 632.5 ml Output Total 1000 ml 1025 ml Balance -970 ml -392.5 ml Intake Oral 30 ml IV Total 632.5 ml Output Urine Total 1000 ml 1025 ml # Bowel Movements 1 1 Laboratory Tests 12/11/19 05:28: White Blood Count 9.2, Red Blood Count 3.78L, Hemoglobin 11.8L, Hematocrit 34.8L , Mean Corpuscular Volume 92, Mean Corpuscular Hemoglobin 31.2H, Mean Corpuscular Hemoglobin Concent 33.9, Red Cell Distribution Width 13.0, Platelet Count 139L, Mean Platelet Volume 7.6, Neutrophils (%) (Auto) 77.8H, Lymphocytes (%) (Auto) 12.9L, Monocytes (%) (Auto) 6.5, Eosinophils (%) (Auto) 2.4, Basophils (%) (Auto) 0.3, Sodium Level 147H, Potassium Level 3.7, Chloride Level 113H, Carbon Dioxide Level 30, Anion Gap 5, Blood Urea Nitrogen 31H, Creatinine 1.7H, Estimat Glomerular Filtration Rate , Glucose Level 181H, Calcium Level 8.3L, Phosphorus Level 3.0, Magnesium Level 1.5L, Total Bilirubin 9.7H, Direct Bilirubin 7.8H, Aspartate Amino Transf (AST/SGOT) 57H, Alanine Aminotransferase (ALT/SGPT) 33, Alkaline Phosphatase 208H, C-Reactive Protein, Quantitative 20.1H, Pro-B-Type Natriuretic Peptide 899H, Total Protein 5.9L, Albumin 1.4L, Globulin 4.5, Albumin/Globulin Ratio 0.3L Height (Feet): 5 Height (Inches): 6.00 Weight (Pounds): 159 Objective Elderly man NCAT, (+) NGT supple CTA RR Abd Soft ND no edema Shayy Viramontes MD Dec 11, 2019 16:29
--- NOTE | 2019-12-11 19:30 | NUR ---
NURSE NOTES: Received pt from JAMAICA Hernandez. pt is observed in bed, AO x1, Uzbek speaking, confused. no s/sx of pain noted at this time. pt is on 3 L O2 via NC, tolerating well, no s/sx of respiratory distress noted. NGT noted in right nare, placement confirmed via auscultation. bilateral soft wrist restraints noted, peripheral pulses present, skin surrounding areas intact. condom catheter in place, draining dark kelvin urine. skin alterations noted. LFA 22 g IV site is patent and intact, asymptomatic. RFA 18 g patent and intact,running D5W at 100 cc/hr. bed in lowest position and locked, siderails up X3, call light within reach. will continue to monitor.
[2019-12-11 20:00] VITALS: BP 122/66
[2019-12-11] MEDS: Tamsulosin 0.4mg cap ORAL SCH (21:15)
--- NOTE | 2019-12-11 22:25 | General Progress Note ---
Assessment/Plan Problem List: (1) Sepsis ICD Codes: A41.9 - Sepsis, unspecified organism SNOMED: 39582422 Qualifiers: Qualified Codes: A41.9 - Sepsis, unspecified organism; R65.20 - Severe sepsis without septic shock; N17.9 - Acute kidney failure, unspecified (2) Alzheimer's dementia ICD Codes: G30.9 - Alzheimer's disease, unspecified; F02.80 - Dementia in other diseases classified elsewhere without behavioral disturbance SNOMED: 11673092 Qualifiers: Qualified Codes: G30.9 - Alzheimer's disease, unspecified; F02.80 - Dementia in other diseases classified elsewhere without behavioral disturbance (3) Elevated LFTs ICD Codes: R94.5 - Abnormal results of liver function studies SNOMED: 881428980, 719797944 (4) Cholestasis ICD Codes: K83.1 - Obstruction of bile duct SNOMED: 98821008 (5) Hyperbilirubinemia ICD Codes: E80.6 - Other disorders of bilirubin metabolism SNOMED: 70576858 (6) Left lower lobe pneumonia ICD Codes: J18.9 - Pneumonia, unspecified organism SNOMED: 058112456 Qualifiers: Qualified Codes: J18.9 - Pneumonia, unspecified organism (7) Renal failure (ARF), acute on chronic ICD Codes: N17.9 - Acute kidney failure, unspecified; N18.9 - Chronic kidney disease, unspecified SNOMED: 643223059 Qualifiers: Qualified Codes: N17.9 - Acute kidney failure, unspecified; N18.3 - Chronic kidney disease, stage 3 (moderate) Status: progressing, unchanged Assessment/Plan: elevated lft sepsis pna not hypoxic not improving no wheezing hypernatremia azotemia resp insuff peg per dr kuo dm.elevated sugar Subjective ROS Limited/Unobtainable: Yes Allergies: Coded Allergies: No Known Allergies (Unverified , 03/19/17) Objective Last 24 Hour Vital Signs Date Time Temp Pulse Resp B/P (MAP) Pulse Ox O2 Delivery O2 Flow Rate FiO2 12/11/19 20:00 98.7 95 20 122/66 (84) 96 12/11/19 19:36 81 18 95 Nasal Cannula 2.0 28 12/11/19 19:36 97 Nasal Cannula 2.0 28 12/11/19 16:15 82 12/11/19 16:00 98.4 82 18 135/70 (91) 94 12/11/19 16:00 Nasal Cannula 3.0 12/11/19 14:32 109 153/93 12/11/19 12:00 Nasal Cannula 3.0 12/11/19 12:00 98.2 109 20 153/93 (113) 94 12/11/19 11:46 83 12/11/19 08:14 74 18 97 Nasal Cannula 2.0 28 12/11/19 08:14 97 Nasal Cannula 2.0 28 12/11/19 08:00 97.7 85 18 122/63 (82) 99 12/11/19 08:00 Nasal Cannula 3.0 12/11/19 07:42 84 12/11/19 04:00 81 12/11/19 04:00 97.6 81 20 123/65 (84) 96 12/11/19 04:00 Nasal Cannula 3.0 12/11/19 00:00 Nasal Cannula 3.0 12/11/19 00:00 83 12/11/19 00:00 97.4 82 20 110/57 (74) 99 Intake and Output 12/10/19 12/11/19 19:00 07:00 Intake Total 30 ml 632.5 ml Output Total 1000 ml 1025 ml Balance -970 ml -392.5 ml Intake Oral 30 ml IV Total 632.5 ml Output Urine Total 1000 ml 1025 ml # Bowel Movements 1 1 Laboratory Tests 12/11/19 05:28: White Blood Count 9.2, Red Blood Count 3.78L, Hemoglobin 11.8L, Hematocrit 34.8L , Mean Corpuscular Volume 92, Mean Corpuscular Hemoglobin 31.2H, Mean Corpuscular Hemoglobin Concent 33.9, Red Cell Distribution Width 13.0, Platelet Count 139L, Mean Platelet Volume 7.6, Neutrophils (%) (Auto) 77.8H, Lymphocytes (%) (Auto) 12.9L, Monocytes (%) (Auto) 6.5, Eosinophils (%) (Auto) 2.4, Basophils (%) (Auto) 0.3, Sodium Level 147H, Potassium Level 3.7, Chloride Level 113H, Carbon Dioxide Level 30, Anion Gap 5, Blood Urea Nitrogen 31H, Creatinine 1.7H, Estimat Glomerular Filtration Rate , Glucose Level 181H, Calcium Level 8.3L, Phosphorus Level 3.0, Magnesium Level 1.5L, Total Bilirubin 9.7H, Direct Bilirubin 7.8H, Aspartate Amino Transf (AST/SGOT) 57H, Alanine Aminotransferase (ALT/SGPT) 33, Alkaline Phosphatase 208H, C-Reactive Protein, Quantitative 20.1H, Pro-B-Type Natriuretic Peptide 899H, Total Protein 5.9L, Albumin 1.4L, Globulin 4.5, Albumin/Globulin Ratio 0.3L Height (Feet): 5 Height (Inches): 6.00 Weight (Pounds): 159 Cardiovascular: normal rate Respiratory/Chest: lungs clear Abdomen: soft Gurmeet Elizabeth MD Dec 11, 2019 22:25
[2019-12-12] VITALS: BP 111/61
[2019-12-12 04:00] VITALS: BP 127/63
[2019-12-12] MEDS: Piperacillin/Tazobactam 3.375 GM in NS 110 ML IVPB SCH ×3 (05:51→21:26)
[2019-12-12] MEDS: dilTIAZem HCl 30mg tab ORAL SCH ×3 (05:51→21:25)
[2019-12-12] MEDS: NovoLOG Insulin Flexpen SUBQ SCH ×4 (06:30→21:29)
--- NOTE | 2019-12-12 07:30 | NUR ---
NURSE NOTES: Received report from JAMAICA Fuller. The patient is resting on the bed but agitated. The patient's bed in the lowest position, call light in reach, and fall and aspiration precaution reinforced. IV site intact and patent running IVF as ordered. Oxygen therapy per order. NG tube in right nare but no formula running. Will clarify with GI. Bilateral soft wrist restraints applied per order and circulation and skin is intact. Will continue plan of care.
--- NOTE | 2019-12-12 07:47 | NUR ---
HAND-OFF: Report given to JAMAICA Hopper. endorsed plan of care.
[2019-12-12 08:00] VITALS: BP 113/51
[2019-12-12 08:05] LABS: BASOPHILS % (AUTO) 0.4 % (0.0-2.0); EOSINOPHILS % (AUTO) 3.6 % (0.0-3.0); HEMATOCRIT 34.1 % (42.0-52.0); HEMOGLOBIN 11.4 G/DL (14.2-18.0); LYMPHOCYTES % (AUTO) 16.5 % (20.0-45.0); MEAN CORPUSCULAR VOLUME 92 FL (80-99); MONOCYTES % (AUTO) 6.7 % (1.0-10.0); NEUTROPHILS % (AUTO) 72.7 % (45.0-75.0); PLATELET COUNT 135 K/UL (150-450); RED CELL DISTRIBUTION WIDTH 13.1 % (11.6-14.8)
[2019-12-12 08:33] LABS: INR 1.1 (0.9-1.1)
[2019-12-12 08:47] LABS: ALANINE AMINOTRANSFERASE 34 U/L (12-78); ALBUMIN 1.4 G/DL (3.4-5.0); ALBUMIN/GLOBULIN RATIO 0.3 (1.0-2.7); ALKALINE PHOSPHATASE 227 U/L (46-116); AMYLASE 59 U/L (25-115); ANION GAP 4 mmol/L (5-15); ASPARTATE AMINO TRANSFERASE 55 U/L (15-37); BILIRUBIN,TOTAL 9.8 MG/DL (0.2-1.0); BLOOD UREA NITROGEN 25 mg/dL (7-18); CARBON DIOXIDE 31 MMOL/L (21-32); CHLORIDE 108 MMOL/L (98-107); CREATININE 1.7 MG/DL (0.55-1.30); SODIUM 143 MMOL/L (136-145)
[2019-12-12] MEDS: Docusate 100mg cap ORAL SCH ×3 (08:53→18:00)
[2019-12-12 09:00] LABS: BILIRUBIN,DIRECT 8.7 MG/DL (0.0-0.3)
--- NOTE | 2019-12-12 09:15 | NUR ---
NURSE NOTES: Notified Dr. Viramontes and Brenden, FIBER ARTIST regarding abnormal lab including total and direct bilirubin, AST, Ammonia, and the patient's feature of generalized jaundice. Also, notified that the patient does not have tube feeding formula at this time. No new order yet. Will carry out the order as soon as receives it. Will continue plan of care.
--- NOTE | 2019-12-12 09:30 | NUR ---
NURSE NOTES: Dr. Ashraf ordered 2 bags of KCL 10mEq IVPB for potassium level of 3.0. Will administer as ordered. The patient is stable without acute distress or shortness of breath. Will continue plan of care.
[2019-12-12] MEDS ORDERED: NS 275ml ONE (10:04)
--- NOTE | 2019-12-12 10:30 | NUR ---
NURSE NOTES: Dr. Viramontes at the bedside assessed the patient. Notified again for abnormal lab and feature of jaundice. Per Dr. Viramontes, he did not order tube feeding as the patient is unstable to start tube feeding. Per Dr. Viramontes, he will review the patient condition again and will order if needed. Will wait for the order. Will continue plan of care.
--- NOTE | 2019-12-12 11:13 | Surgery Progress Note ---
Surgery Progress Note Subjective Symptoms: improved Objective Last 24 Hour Vital Signs Date Time Temp Pulse Resp B/P (MAP) Pulse Ox O2 Delivery O2 Flow Rate FiO2 12/12/19 05:51 81 127/63 12/12/19 04:00 Nasal Cannula 3.0 12/12/19 04:00 97.0 90 20 127/63 (84) 96 12/12/19 04:00 81 12/12/19 00:00 84 12/12/19 00:00 98.4 89 20 111/61 (78) 96 12/12/19 00:00 Nasal Cannula 3.0 12/11/19 22:27 95 122/66 12/11/19 20:00 98.7 95 20 122/66 (84) 96 12/11/19 20:00 Nasal Cannula 3.0 12/11/19 20:00 81 12/11/19 19:36 81 18 95 Nasal Cannula 2.0 28 12/11/19 19:36 97 Nasal Cannula 2.0 28 12/11/19 16:15 82 12/11/19 16:00 98.4 82 18 135/70 (91) 94 12/11/19 16:00 Nasal Cannula 3.0 12/11/19 14:32 109 153/93 12/11/19 12:00 Nasal Cannula 3.0 12/11/19 12:00 98.2 109 20 153/93 (113) 94 12/11/19 11:46 83 I&O Intake and Output 12/11/19 12/12/19 19:00 07:00 Intake Total 1270.785 ml Output Total 900 ml 1050 ml Balance -900 ml 220.785 ml IV Total 1270.785 ml Output Urine Total 900 ml 1050 ml # Voids 1 # Bowel Movements 2 Dressing: other Wound: other Drains: other Cardiovascular: RSR Respiratory: decreased breath sounds Abdomen: soft, present bowel sounds Extremities: no edema, no tenderness Laboratory Tests Test 12/12/19 07:05 White Blood Count 7.0 K/UL (4.8-10.8) Red Blood Count 3.70 M/UL (4.70-6.10) L Hemoglobin 11.4 G/DL (14.2-18.0) L Hematocrit 34.1 % (42.0-52.0) L Mean Corpuscular Volume 92 FL (80-99) Mean Corpuscular Hemoglobin 30.9 PG (27.0-31.0) Mean Corpuscular Hemoglobin Concent 33.5 G/DL (32.0-36.0) Red Cell Distribution Width 13.1 % (11.6-14.8) Platelet Count 135 K/UL (150-450) L Mean Platelet Volume 6.9 FL (6.5-10.1) Neutrophils (%) (Auto) 72.7 % (45.0-75.0) Lymphocytes (%) (Auto) 16.5 % (20.0-45.0) L Monocytes (%) (Auto) 6.7 % (1.0-10.0) Eosinophils (%) (Auto) 3.6 % (0.0-3.0) H Basophils (%) (Auto) 0.4 % (0.0-2.0) Erythrocyte Sedimentation Rate 76 MM/HR (0-20) H Prothrombin Time 11.8 SEC (9.30-11.50) H Prothromb Time International Ratio 1.1 (0.9-1.1) Sodium Level 143 MMOL/L (136-145) Potassium Level 3.0 MMOL/L (3.5-5.1) L Chloride Level 108 MMOL/L (98-107) H Carbon Dioxide Level 31 MMOL/L (21-32) Anion Gap 4 mmol/L (5-15) L Blood Urea Nitrogen 25 mg/dL (7-18) H Creatinine 1.7 MG/DL (0.55-1.30) H Estimat Glomerular Filtration Rate mL/min (>60) Glucose Level 187 MG/DL (74-106) H Calcium Level 8.0 MG/DL (8.5-10.1) L Total Bilirubin 9.8 MG/DL (0.2-1.0) H Direct Bilirubin 8.7 MG/DL (0.0-0.3) H Aspartate Amino Transf (AST/SGOT) 55 U/L (15-37) H Alanine Aminotransferase (ALT/SGPT) 34 U/L (12-78) Alkaline Phosphatase 227 U/L (46-116) H Ammonia 40 umol/L (11-32) H C-Reactive Protein, Quantitative 13.3 mg/dL (0.00-0.90) H Total Protein 5.7 G/DL (6.4-8.2) L Albumin 1.4 G/DL (3.4-5.0) L Globulin 4.3 g/dL Albumin/Globulin Ratio 0.3 (1.0-2.7) L Amylase Level 59 U/L (25-115) Lipase 193 U/L (73-393) Anti-Nuclear Antibody Screen Pending F-Actin IgG Antibody Pending Seth-Reed Virus Capsid Ag IgM Ab Pending Herpes Simplex Virus I IgM Ab (IFA) Pending Herpes Simplex Virus II IgM Ab (IFA Pending Plan Problems: (1) Sepsis Assessment & Plan: 89-year-old male with leukocytosis, fevers, tachycardia, abnormal labs. Abdominal ultrasound nondiagnostic MRCP pending - eval for ERCP given condition appreciate GI input in discussion with GI likely believed to be related to hepatic insufficiency Continue IV antibiotics per infectious disease No acute surgical invention planned IV fluids Trend labs Resuscitation We will follow with recommendations Thank you for let me participate in patient's care (2) Biliary obstruction Assessment & Plan: Findings: The study was limited due to bowel gas body habitus. The liver is mildly heterogeneous with questionable surface nodularity. Doppler interrogation of the main portal vein shows patency with hepatopedal, monophasic flow. There is no biliary ductal dilatation identified. Gallbladder is grossly unremarkable. There demonstrated part of the pancreas, aorta and IVC show no obvious abnormalities. The structures are poorly seen. Both kidneys are poorly seen. There is no obvious hydronephrosis. IMPRESSION: No acute findings Very limited study Gallbladder is distended, but there are no gallstones and no wall thickening demonstrated. Negative for dilated bile ducts Equivocally mildly increased renal echogenicity, if real could indicate medical renal disease. Negative for evidence of hydronephrosis (3) Elevated LFTs Ajit Mcnulty Dec 12, 2019 11:13
--- NOTE | 2019-12-12 11:16 | Pulmonology Progress Note ---
Assessment/Plan Assessment/Plan IMPRESSION: 1. Left lower lobe pneumonia. Reviewed CXR with radiology; no definite pneumonia seen. 2. Sepsis with lactic acidemia. 3. Acute renal insufficiency. 4. History of CHF. 5. Dementia. 6. Jaundice; has intra-abdominal/biliary issue; GI and surgery following DISCUSSION: Fluid resuscitation. Continue antibiotics. I will follow carefully as respiratory custom decorating consultant. GI/surgery following. Currently saturating well on low flow O2 Kevin Lincoln M.D. Subjective Interval Events: None new Constitutional: Reports: no symptoms HEENT: Repors: no symptoms Respiratory: Reports: no symptoms Cardiovascular: Reports: no symptoms Gastrointestinal/Abdominal: Reports: no symptoms Allergies: Coded Allergies: No Known Allergies (Unverified , 03/19/17) Objective Last 24 Hour Vital Signs Date Time Temp Pulse Resp B/P (MAP) Pulse Ox O2 Delivery O2 Flow Rate FiO2 12/12/19 05:51 81 127/63 12/12/19 04:00 Nasal Cannula 3.0 12/12/19 04:00 97.0 90 20 127/63 (84) 96 12/12/19 04:00 81 12/12/19 00:00 84 12/12/19 00:00 98.4 89 20 111/61 (78) 96 12/12/19 00:00 Nasal Cannula 3.0 12/11/19 22:27 95 122/66 12/11/19 20:00 98.7 95 20 122/66 (84) 96 12/11/19 20:00 Nasal Cannula 3.0 12/11/19 20:00 81 12/11/19 19:36 81 18 95 Nasal Cannula 2.0 28 12/11/19 19:36 97 Nasal Cannula 2.0 28 12/11/19 16:15 82 12/11/19 16:00 98.4 82 18 135/70 (91) 94 12/11/19 16:00 Nasal Cannula 3.0 12/11/19 14:32 109 153/93 12/11/19 12:00 Nasal Cannula 3.0 12/11/19 12:00 98.2 109 20 153/93 (113) 94 12/11/19 11:46 83 Intake and Output 12/11/19 12/12/19 19:00 07:00 Intake Total 1270.785 ml Output Total 900 ml 1050 ml Balance -900 ml 220.785 ml IV Total 1270.785 ml Output Urine Total 900 ml 1050 ml # Voids 1 # Bowel Movements 2 General Appearance: no acute distress HEENT: normocephalic Respiratory/Chest: chest wall non-tender, lungs clear Cardiovascular: normal peripheral pulses, normal rate Abdomen: normal bowel sounds Laboratory Tests 12/12/19 07:05: White Blood Count 7.0, Red Blood Count 3.70L, Hemoglobin 11.4L, Hematocrit 34.1L , Mean Corpuscular Volume 92, Mean Corpuscular Hemoglobin 30.9, Mean Corpuscular Hemoglobin Concent 33.5, Red Cell Distribution Width 13.1, Platelet Count 135L, Mean Platelet Volume 6.9, Neutrophils (%) (Auto) 72.7, Lymphocytes ( %) (Auto) 16.5L, Monocytes (%) (Auto) 6.7, Eosinophils (%) (Auto) 3.6H, Basophils (%) (Auto) 0.4, Erythrocyte Sedimentation Rate 76H, Prothrombin Time 11.8H, Prothromb Time International Ratio 1.1, Sodium Level 143, Potassium Level 3.0L, Chloride Level 108H, Carbon Dioxide Level 31, Anion Gap 4L, Blood Urea Nitrogen 25H, Creatinine 1.7H, Estimat Glomerular Filtration Rate , Glucose Level 187H, Calcium Level 8.0L, Total Bilirubin 9.8H, Direct Bilirubin 8.7H, Aspartate Amino Transf (AST/SGOT) 55H, Alanine Aminotransferase (ALT/SGPT ) 34, Alkaline Phosphatase 227H, Ammonia 40H, C-Reactive Protein, Quantitative 13.3H, Total Protein 5.7L, Albumin 1.4L, Globulin 4.3, Albumin/Globulin Ratio 0.3L, Amylase Level 59, Lipase 193, Anti-Nuclear Antibody Screen [Pending], F- Actin IgG Antibody [Pending], Seth-Reed Virus Capsid Ag IgM Ab [Pending], Herpes Simplex Virus I IgM Ab (IFA) [Pending], Herpes Simplex Virus II IgM Ab ( IFA [Pending] Current Medications Medications (Trade) Dose Ordered Sig/Filemon Route PRN Reason Start Time Stop Time Status Last Admin Dose Admin Acetaminophen (Tylenol) 325 mg Q6H PRN ORAL Mild Pain/Temp > 100.5 12/11/19 03:30 01/06/20 09:29 Acetaminophen (Tylenol) 650 mg Q4H PRN RECTAL Mild Pain (Pain Scale 1-3) 12/11/19 04:15 01/09/20 00:14 Dextrose 1,000 ml @ 100 mls/hr Q10H IV 12/11/19 02:45 01/08/20 08:29 12/12/19 08:53 Dextrose (Dextrose 50%) 25 ml Q30M PRN IV Hypoglycemia 12/11/19 03:15 01/05/20 11:44 Dextrose (Dextrose 50%) 50 ml Q30M PRN IV Hypoglycemia 12/11/19 03:15 01/05/20 11:44 Diltiazem HCl (Cardizem) 30 mg EVERY 8 HOURS ORAL 12/11/19 06:00 01/05/20 13:59 12/12/19 05:51 Docusate Sodium (Colace) 100 mg TID ORAL 12/11/19 09:00 01/05/20 17:59 12/12/19 08:53 Insulin Aspart (NovoLOG) BEFORE MEALS AND HS SUBQ 12/11/19 06:30 01/05/20 16:29 12/11/19 06:51 Pantoprazole (Protonix) 40 mg BID ORAL 12/11/19 09:00 01/05/20 14:44 12/12/19 08:53 Piperacillin Sod/ Tazobactam Sod 3.375 gm/Sodium Chloride 110 ml @ 27.5 mls/hr EVERY 8 HOURS IVPB 12/11/19 06:00 12/16/19 13:59 12/12/19 05:51 Potassium Chloride 100 ml @ 100 mls/hr Q1HR IVPB 12/12/19 10:00 12/12/19 11:59 12/12/19 11:05 Potassium Chloride (K-Dur) 40 meq TWICE A DAY ORAL 12/11/19 09:00 01/08/20 09:59 12/12/19 08:53 Quetiapine Fumarate (SEROqueL) 25 mg EVERY 6 HOURS PRN ORAL For Anxiety 12/11/19 03:00 01/09/20 02:59 Risperidone (RisperDAL) 0.5 mg Q12HR ORAL 12/11/19 09:00 01/05/20 08:59 12/12/19 08:54 Tamsulosin HCl (Flomax) 0.4 mg BEDTIME ORAL 12/11/19 21:00 01/05/20 20:59 12/11/19 21:15 Kevin Lincoln MD Dec 12, 2019 11:16
[2019-12-12 12:00] VITALS: BP 106/59
--- NOTE | 2019-12-12 12:02 | Nephrology Progress Note ---
Assessment/Plan Problem List: (1) Renal failure (ARF), acute on chronic (2) Alzheimer's dementia (3) Sepsis (4) UTI (urinary tract infection) (5) High bilirubin Assessment Acute on Chronic renal failure- CHF- Past echo 55% EjFx Sepsis, High Lactate- Leukocytosis Left lower lobe pneumonia Alzheimer's dementia UTI (urinary tract infection) Hyperglycemia, DM II Plan mag supplement 2D echo noted KCL IV and Po as needed slow hydrate- D5w monitor renal parameters correct electrolytes BP and BS in check per orders Subjective ROS Limited/Unobtainable: No Constitutional: Reports: malaise Objective Objective Last 24 Hour Vital Signs Date Time Temp Pulse Resp B/P (MAP) Pulse Ox O2 Delivery O2 Flow Rate FiO2 12/12/19 05:51 81 127/63 12/12/19 04:00 Nasal Cannula 3.0 12/12/19 04:00 97.0 90 20 127/63 (84) 96 12/12/19 04:00 81 12/12/19 00:00 84 12/12/19 00:00 98.4 89 20 111/61 (78) 96 12/12/19 00:00 Nasal Cannula 3.0 12/11/19 22:27 95 122/66 12/11/19 20:00 98.7 95 20 122/66 (84) 96 12/11/19 20:00 Nasal Cannula 3.0 12/11/19 20:00 81 12/11/19 19:36 81 18 95 Nasal Cannula 2.0 28 12/11/19 19:36 97 Nasal Cannula 2.0 28 12/11/19 16:15 82 12/11/19 16:00 98.4 82 18 135/70 (91) 94 12/11/19 16:00 Nasal Cannula 3.0 12/11/19 14:32 109 153/93 Intake and Output 12/11/19 12/12/19 19:00 07:00 Intake Total 1270.785 ml Output Total 900 ml 1050 ml Balance -900 ml 220.785 ml IV Total 1270.785 ml Output Urine Total 900 ml 1050 ml # Voids 1 # Bowel Movements 2 Laboratory Tests 12/12/19 07:05: White Blood Count 7.0, Red Blood Count 3.70L, Hemoglobin 11.4L, Hematocrit 34.1L , Mean Corpuscular Volume 92, Mean Corpuscular Hemoglobin 30.9, Mean Corpuscular Hemoglobin Concent 33.5, Red Cell Distribution Width 13.1, Platelet Count 135L, Mean Platelet Volume 6.9, Neutrophils (%) (Auto) 72.7, Lymphocytes ( %) (Auto) 16.5L, Monocytes (%) (Auto) 6.7, Eosinophils (%) (Auto) 3.6H, Basophils (%) (Auto) 0.4, Erythrocyte Sedimentation Rate 76H, Prothrombin Time 11.8H, Prothromb Time International Ratio 1.1, Sodium Level 143, Potassium Level 3.0L, Chloride Level 108H, Carbon Dioxide Level 31, Anion Gap 4L, Blood Urea Nitrogen 25H, Creatinine 1.7H, Estimat Glomerular Filtration Rate , Glucose Level 187H, Calcium Level 8.0L, Total Bilirubin 9.8H, Direct Bilirubin 8.7H, Aspartate Amino Transf (AST/SGOT) 55H, Alanine Aminotransferase (ALT/SGPT ) 34, Alkaline Phosphatase 227H, Ammonia 40H, C-Reactive Protein, Quantitative 13.3H, Total Protein 5.7L, Albumin 1.4L, Globulin 4.3, Albumin/Globulin Ratio 0.3L, Amylase Level 59, Lipase 193, Anti-Nuclear Antibody Screen [Pending], F- Actin IgG Antibody [Pending], Seth-Reed Virus Capsid Ag IgM Ab [Pending], Herpes Simplex Virus I IgM Ab (IFA) [Pending], Herpes Simplex Virus II IgM Ab ( IFA [Pending] Height (Feet): 5 Height (Inches): 6.00 Weight (Pounds): 159 General Appearance: no apparent distress EENT: other - NGT Cardiovascular: normal rate Respiratory/Chest: decreased breath sounds Abdomen: distended Jose Ashraf MD Dec 12, 2019 12:02
--- NOTE | 2019-12-12 13:49 | Infectious Diseases Prog Note ---
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, hypertension, Alzheimer dementia, acute renal failure, improving Hypernatremia Distended Gallbladder RECOMMENDATION: We will continue with Hue Subjective ROS Limited/Unobtainable: Yes Neurologic: Reports: confusion, other - on restraint Allergies: Coded Allergies: No Known Allergies (Unverified , 03/19/17) Objective Vital Signs Last 24 Hour Vital Signs Date Time Temp Pulse Resp B/P (MAP) Pulse Ox O2 Delivery O2 Flow Rate FiO2 12/12/19 13:22 75 106/59 12/12/19 12:00 97.7 81 20 106/59 (75) 96 12/12/19 12:00 75 12/12/19 12:00 Nasal Cannula 3.0 12/12/19 08:00 73 12/12/19 08:00 97.8 73 20 113/51 (71) 96 12/12/19 08:00 Nasal Cannula 3.0 12/12/19 05:51 81 127/63 12/12/19 04:00 Nasal Cannula 3.0 12/12/19 04:00 97.0 90 20 127/63 (84) 96 12/12/19 04:00 81 12/12/19 00:00 84 12/12/19 00:00 98.4 89 20 111/61 (78) 96 12/12/19 00:00 Nasal Cannula 3.0 12/11/19 22:27 95 122/66 12/11/19 20:00 98.7 95 20 122/66 (84) 96 12/11/19 20:00 Nasal Cannula 3.0 12/11/19 20:00 81 12/11/19 19:36 81 18 95 Nasal Cannula 2.0 28 12/11/19 19:36 97 Nasal Cannula 2.0 28 12/11/19 16:15 82 12/11/19 16:00 98.4 82 18 135/70 (91) 94 12/11/19 16:00 Nasal Cannula 3.0 12/11/19 14:32 109 153/93 Height (Feet): 5 Height (Inches): 6.00 Weight (Pounds): 159 General Appearance: no acute distress HEENT: mucous membranes moist Respiratory/Chest: rhonchi - bilaterally Cardiovascular: normal rate Abdomen: soft, non tender, other - NG tube Extremities: no edema Skin: other - icterus Neurologic/Psychiatric: alert, responsive Laboratory Tests Test 12/12/19 07:05 White Blood Count 7.0 K/UL (4.8-10.8) Red Blood Count 3.70 M/UL (4.70-6.10) L Hemoglobin 11.4 G/DL (14.2-18.0) L Hematocrit 34.1 % (42.0-52.0) L Mean Corpuscular Volume 92 FL (80-99) Mean Corpuscular Hemoglobin 30.9 PG (27.0-31.0) Mean Corpuscular Hemoglobin Concent 33.5 G/DL (32.0-36.0) Red Cell Distribution Width 13.1 % (11.6-14.8) Platelet Count 135 K/UL (150-450) L Mean Platelet Volume 6.9 FL (6.5-10.1) Neutrophils (%) (Auto) 72.7 % (45.0-75.0) Lymphocytes (%) (Auto) 16.5 % (20.0-45.0) L Monocytes (%) (Auto) 6.7 % (1.0-10.0) Eosinophils (%) (Auto) 3.6 % (0.0-3.0) H Basophils (%) (Auto) 0.4 % (0.0-2.0) Erythrocyte Sedimentation Rate 76 MM/HR (0-20) H Prothrombin Time 11.8 SEC (9.30-11.50) H Prothromb Time International Ratio 1.1 (0.9-1.1) Sodium Level 143 MMOL/L (136-145) Potassium Level 3.0 MMOL/L (3.5-5.1) L Chloride Level 108 MMOL/L (98-107) H Carbon Dioxide Level 31 MMOL/L (21-32) Anion Gap 4 mmol/L (5-15) L Blood Urea Nitrogen 25 mg/dL (7-18) H Creatinine 1.7 MG/DL (0.55-1.30) H Estimat Glomerular Filtration Rate mL/min (>60) Glucose Level 187 MG/DL (74-106) H Calcium Level 8.0 MG/DL (8.5-10.1) L Total Bilirubin 9.8 MG/DL (0.2-1.0) H Direct Bilirubin 8.7 MG/DL (0.0-0.3) H Aspartate Amino Transf (AST/SGOT) 55 U/L (15-37) H Alanine Aminotransferase (ALT/SGPT) 34 U/L (12-78) Alkaline Phosphatase 227 U/L (46-116) H Ammonia 40 umol/L (11-32) H C-Reactive Protein, Quantitative 13.3 mg/dL (0.00-0.90) H Total Protein 5.7 G/DL (6.4-8.2) L Albumin 1.4 G/DL (3.4-5.0) L Globulin 4.3 g/dL Albumin/Globulin Ratio 0.3 (1.0-2.7) L Amylase Level 59 U/L (25-115) Lipase 193 U/L (73-393) Anti-Nuclear Antibody Screen Pending F-Actin IgG Antibody Pending Seth-Reed Virus Capsid Ag IgM Ab Pending Herpes Simplex Virus I IgM Ab (IFA) Pending Herpes Simplex Virus II IgM Ab (IFA Pending Current Medications Medications (Trade) Dose Ordered Sig/Filemon Route PRN Reason Start Time Stop Time Status Last Admin Dose Admin Acetaminophen (Tylenol) 325 mg Q6H PRN ORAL Mild Pain/Temp > 100.5 12/11/19 03:30 01/06/20 09:29 Acetaminophen (Tylenol) 650 mg Q4H PRN RECTAL Mild Pain (Pain Scale 1-3) 12/11/19 04:15 01/09/20 00:14 Dextrose 1,000 ml @ 100 mls/hr Q10H IV 12/11/19 02:45 01/08/20 08:29 12/12/19 08:53 Dextrose (Dextrose 50%) 25 ml Q30M PRN IV Hypoglycemia 12/11/19 03:15 01/05/20 11:44 Dextrose (Dextrose 50%) 50 ml Q30M PRN IV Hypoglycemia 12/11/19 03:15 01/05/20 11:44 Diltiazem HCl (Cardizem) 30 mg EVERY 8 HOURS ORAL 12/11/19 06:00 01/05/20 13:59 12/12/19 05:51 Docusate Sodium (Colace) 100 mg TID ORAL 12/11/19 09:00 01/05/20 17:59 12/12/19 13:21 Insulin Aspart (NovoLOG) BEFORE MEALS AND HS SUBQ 12/11/19 06:30 01/05/20 16:29 12/11/19 06:51 Pantoprazole (Protonix) 40 mg BID ORAL 12/11/19 09:00 01/05/20 14:44 12/12/19 08:53 Piperacillin Sod/ Tazobactam Sod 3.375 gm/Sodium Chloride 110 ml @ 27.5 mls/hr EVERY 8 HOURS IVPB 12/11/19 06:00 12/16/19 13:59 12/12/19 13:22 Potassium Chloride (K-Dur) 40 meq TWICE A DAY ORAL 12/11/19 09:00 01/08/20 09:59 12/12/19 08:53 Quetiapine Fumarate (SEROqueL) 25 mg EVERY 6 HOURS PRN ORAL For Anxiety 12/11/19 03:00 01/09/20 02:59 Risperidone (RisperDAL) 0.5 mg Q12HR ORAL 12/11/19 09:00 01/05/20 08:59 12/12/19 08:54 Tamsulosin HCl (Flomax) 0.4 mg BEDTIME ORAL 12/11/19 21:00 01/05/20 20:59 12/11/19 21:15 Enrike Hadley MD Dec 12, 2019 13:49
--- NOTE | 2019-12-12 14:00 | NUR ---
NURSE NOTES: The patient is stable without acute distress or shortness of breath. Will continue plan of care.
--- NOTE | 2019-12-12 15:17 | General Progress Note ---
Assessment/Plan Status: progressing, unchanged Assessment/Plan: Assessment (1) Elevated LFTs --> suspect hepatitis (? autoimmune, ? 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 (2) No Biliary obstruction on abdominal ultrasound --> will check CT to better visualize liver (3) Hyperbilirubinemia (4) Malnutrition Recommendations Check viral (CMV, HSV, EBV) serologies - Pend check autoimmune markers - Pend d/c all non vital meds check NH3 - mildly elevated check INR - normal follow LFT Check CT scan Begin NGT feeds, slowly Subjective Allergies: Coded Allergies: No Known Allergies (Unverified , 03/19/17) Subjective confused restrained NGT in place Objective Last 24 Hour Vital Signs Date Time Temp Pulse Resp B/P (MAP) Pulse Ox O2 Delivery O2 Flow Rate FiO2 12/12/19 13:22 75 106/59 12/12/19 12:00 97.7 81 20 106/59 (75) 96 12/12/19 12:00 75 12/12/19 12:00 Nasal Cannula 3.0 12/12/19 08:00 73 12/12/19 08:00 97.8 73 20 113/51 (71) 96 12/12/19 08:00 Nasal Cannula 3.0 12/12/19 05:51 81 127/63 12/12/19 04:00 Nasal Cannula 3.0 12/12/19 04:00 97.0 90 20 127/63 (84) 96 12/12/19 04:00 81 12/12/19 00:00 84 12/12/19 00:00 98.4 89 20 111/61 (78) 96 12/12/19 00:00 Nasal Cannula 3.0 12/11/19 22:27 95 122/66 12/11/19 20:00 98.7 95 20 122/66 (84) 96 12/11/19 20:00 Nasal Cannula 3.0 12/11/19 20:00 81 12/11/19 19:36 81 18 95 Nasal Cannula 2.0 28 12/11/19 19:36 97 Nasal Cannula 2.0 28 12/11/19 16:15 82 12/11/19 16:00 98.4 82 18 135/70 (91) 94 12/11/19 16:00 Nasal Cannula 3.0 Intake and Output 12/11/19 12/12/19 19:00 07:00 Intake Total 1270.785 ml Output Total 900 ml 1050 ml Balance -900 ml 220.785 ml IV Total 1270.785 ml Output Urine Total 900 ml 1050 ml # Voids 1 # Bowel Movements 2 Laboratory Tests 12/12/19 07:05: White Blood Count 7.0, Red Blood Count 3.70L, Hemoglobin 11.4L, Hematocrit 34.1L , Mean Corpuscular Volume 92, Mean Corpuscular Hemoglobin 30.9, Mean Corpuscular Hemoglobin Concent 33.5, Red Cell Distribution Width 13.1, Platelet Count 135L, Mean Platelet Volume 6.9, Neutrophils (%) (Auto) 72.7, Lymphocytes ( %) (Auto) 16.5L, Monocytes (%) (Auto) 6.7, Eosinophils (%) (Auto) 3.6H, Basophils (%) (Auto) 0.4, Erythrocyte Sedimentation Rate 76H, Prothrombin Time 11.8H, Prothromb Time International Ratio 1.1, Sodium Level 143, Potassium Level 3.0L, Chloride Level 108H, Carbon Dioxide Level 31, Anion Gap 4L, Blood Urea Nitrogen 25H, Creatinine 1.7H, Estimat Glomerular Filtration Rate , Glucose Level 187H, Calcium Level 8.0L, Total Bilirubin 9.8H, Direct Bilirubin 8.7H, Aspartate Amino Transf (AST/SGOT) 55H, Alanine Aminotransferase (ALT/SGPT ) 34, Alkaline Phosphatase 227H, Ammonia 40H, C-Reactive Protein, Quantitative 13.3H, Total Protein 5.7L, Albumin 1.4L, Globulin 4.3, Albumin/Globulin Ratio 0.3L, Amylase Level 59, Lipase 193, Anti-Nuclear Antibody Screen [Pending], F- Actin IgG Antibody [Pending], Seth-Reed Virus Capsid Ag IgM Ab [Pending], Herpes Simplex Virus I IgM Ab (IFA) [Pending], Herpes Simplex Virus II IgM Ab ( IFA [Pending] Height (Feet): 5 Height (Inches): 6.00 Weight (Pounds): 159 Objective Elderly man NCAT, (+) NGT supple CTA RR Abd Soft ND no edema Shayy Viramontes MD Dec 12, 2019 15:17
[2019-12-12 16:00] VITALS: BP 143/88
--- NOTE | 2019-12-12 16:00 | NUR ---
NURSE NOTES: Dr. Viramontes ordered tube feeding (Glucerna 1.5 start @ 20mL/hr with goal of 45mL/hr) and CT of abd/pelvis w/o contrast. The patient almost pulled out NG tube and KUB repeat per Dr. Viramontes. Will check the NG tube placement again as stat and will start tube feeding as ordered. The patient is stable without acute distress or shortness of breath. Will continue plan of care. Addendum: 12/12/19 at 1823 by Erik Bravo RN Not KUB but Abdominal X-ray
--- NOTE | 2019-12-12 17:22 | Diagnostic Imaging Report ---
Indication: NG tube Comparison: None Single view of the abdomen obtained Findings: NG tube tip and proximal port are in the stomach in satisfactory position. Bowel gas pattern is nonspecific. Multilevel thoracic and lumbar vertebral endplate osteophytes noted. Interstitial densities demonstrated within the visualized lungs. IMPRESSION: NG tube satisfactory in position
--- NOTE | 2019-12-12 18:00 | NUR ---
NURSE NOTES: Unable to administer 1800 NG route medication as stat Abdominal x-ray final result is not available yet. As soon as NG tube placement confirms with abdominal x-ray, will start tube feeing per order. The patient is stable without acute distress or shortness of breath. Will continue plan of care.
--- NOTE | 2019-12-12 19:15 | NUR ---
HAND-OFF: Report given to JAMAICA Dela Cruz. The patient is resting on the bed without acute distress or shortness of breath. The patient's bed in the lowest position, call light in reach, and fall and aspiration precaution reinforced. IV site intact and patent, and running IVF per order. Oxygen therapy per order. NG tube intact and pending result for NG tube placement. Bilateral soft wrist restraints on per order and skin and circulation intact. The patient is scheduled for CT of abdomen and pelvis without contrast and endorsed to JAMAICA Dela Cruz. Endorsed plan of care.
--- NOTE | 2019-12-12 19:17 | NUR ---
NURSE NOTES: Received report from JAMAICA Hopper, pt. received in bed awake, no signs or symptoms of acute cardiac or respiratory distress noted, bed alarm on side rails up x's3 and safety brakes engaged, bed in low position, pt. appears to be resting comfortably in bed, pt. appears to be tolerating 3L NC - no distress noted, NGT to rt. nare intact- awaiting for KUB results before starting feeding- Also per endorsement pt. is to be NPO at midnight for CT of abd and pelvis w/out contrast for tomorrow. Condom cath intact and draining to gravity, LFA 22G iv intact and patent, RFA 18G D5W at 100cc/hr- iv intact and patent. Addendum: 12/12/19 at 1925 by GIOVANNI VALLADARES RN RN bilateral wrist restraints removed- skin intact and pulses palpable. Addendum: 12/12/19 at 193 by GIOVANNI VALLADARES RN RN pt. appears to be alert to name.
--- NOTE | 2019-12-12 19:55 | Hematology/Onc Progress Note ---
Assessment/Plan Assessment/Plan Assessment and Recs: # Thrombocytopenia -- is likely related to sepsis from pna, currently in 100- 150 range --> smear has been ordered and reviewed --> meds are noted --> okay to continue on abx --> plt trend 169-->148k-->141-->128-->135 --> hold off steriods --> hep and hiv NEG --> us abd negative for cirrhosis/hsm # Leukocytosis due to pna/lactic acidosis --> as per above --> smear has been reviewed --> as per id, on vanc/zosyn-->zosyn --> wbc trend: 16.7 -->14.1-->10.8-->7 # Anemia of chronic disease --> in this case due to hemodilution --> hgb trend: 12.3 # Hyperbilirubinemia --> gi aware as per their recs -> may need ercp/mrcp as per gi --> mri as needed # Dysphagia --> for peg # Cholestasis # Biliary obstruction # Elevated LFTs # PNA/Sepsis Appreciate consultation and will tasha Rn. Subjective Allergies: Coded Allergies: No Known Allergies (Unverified , 03/19/17) Subjective 12/08: awake, no acute events, wbc 16.7, afebrile, on abx, us abd negative 12/09: no acute distress, lft's worsening, wbc improving, nc 3l 12/10: labs noted, plt remains stable, is unable to have mri, no bleeding 12/12: bilat wrist restraints, wbc improved, remains on zosyn Objective Objective Current Medications Medications (Trade) Dose Ordered Sig/Filemon Route PRN Reason Start Time Stop Time Status Last Admin Dose Admin Acetaminophen (Tylenol) 325 mg Q6H PRN ORAL Mild Pain/Temp > 100.5 12/11/19 03:30 01/06/20 09:29 Acetaminophen (Tylenol) 650 mg Q4H PRN RECTAL Mild Pain (Pain Scale 1-3) 12/11/19 04:15 01/09/20 00:14 Barium Sulfate (Readi-Cat 2) 450 ml NOW PRN ORAL Radiology Procedure 12/12/19 15:15 12/14/19 15:08 Dextrose 1,000 ml @ 100 mls/hr Q10H IV 2/1/20 02:45 01/08/20 08:29 12/12/19 17:44 Dextrose (Dextrose 50%) 25 ml Q30M PRN IV Hypoglycemia 12/11/19 03:15 01/05/20 11:44 Dextrose (Dextrose 50%) 50 ml Q30M PRN IV Hypoglycemia 12/11/19 03:15 01/05/20 11:44 Diltiazem HCl (Cardizem) 30 mg EVERY 8 HOURS ORAL 12/11/19 06:00 01/05/20 13:59 12/12/19 05:51 Docusate Sodium (Colace) 100 mg TID ORAL 12/11/19 09:00 01/05/20 17:59 12/12/19 13:21 Insulin Aspart (NovoLOG) BEFORE MEALS AND HS SUBQ 12/11/19 06:30 01/05/20 16:29 12/11/19 06:51 Pantoprazole (Protonix) 40 mg BID ORAL 12/11/19 09:00 01/05/20 14:44 12/12/19 08:53 Piperacillin Sod/ Tazobactam Sod 3.375 gm/Sodium Chloride 110 ml @ 27.5 mls/hr EVERY 8 HOURS IVPB 12/11/19 06:00 12/16/19 13:59 12/12/19 13:22 Potassium Chloride (K-Dur) 40 meq TWICE A DAY ORAL 12/11/19 09:00 01/08/20 09:59 12/12/19 08:53 Quetiapine Fumarate (SEROqueL) 25 mg EVERY 6 HOURS PRN ORAL For Anxiety 12/11/19 03:00 01/09/20 02:59 Risperidone (RisperDAL) 0.5 mg Q12HR ORAL 12/11/19 09:00 01/05/20 08:59 12/12/19 08:54 Tamsulosin HCl (Flomax) 0.4 mg BEDTIME ORAL 12/11/19 21:00 01/05/20 20:59 12/11/19 21:15 Last 24 Hour Vital Signs Date Time Temp Pulse Resp B/P (MAP) Pulse Ox O2 Delivery O2 Flow Rate FiO2 12/12/19 16:00 Nasal Cannula 3.0 12/12/19 16:00 98.4 75 20 143/88 (106) 97 2/2/20 16:00 81 12/12/19 13:22 75 106/59 12/12/19 12:00 97.7 81 20 106/59 (75) 96 12/12/19 12:00 75 12/12/19 12:00 Nasal Cannula 3.0 12/12/19 08:00 73 12/12/19 08:00 97.8 73 20 113/51 (71) 96 12/12/19 08:00 Nasal Cannula 3.0 12/12/19 05:51 81 127/63 12/12/19 04:00 Nasal Cannula 3.0 12/12/19 04:00 97.0 90 20 127/63 (84) 96 12/12/19 04:00 81 12/12/19 00:00 84 12/12/19 00:00 98.4 89 20 111/61 (78) 96 12/12/19 00:00 Nasal Cannula 3.0 12/11/19 22:27 95 122/66 12/11/19 20:00 98.7 95 20 122/66 (84) 96 12/11/19 20:00 Nasal Cannula 3.0 12/11/19 20:00 81 12/11/19 19:36 81 18 95 Nasal Cannula 2.0 28 12/11/19 19:36 97 Nasal Cannula 2.0 28 12/11/19 16:15 82 12/11/19 16:00 98.4 82 18 135/70 (91) 94 12/11/19 16:00 Nasal Cannula 3.0 12/11/19 14:32 109 153/93 12/11/19 12:00 Nasal Cannula 3.0 12/11/19 12:00 98.2 109 20 153/93 (113) 94 12/11/19 11:46 83 12/11/19 08:14 74 18 97 Nasal Cannula 2.0 28 12/11/19 08:14 97 Nasal Cannula 2.0 28 12/11/19 08:00 97.7 85 18 122/63 (82) 99 12/11/19 08:00 Nasal Cannula 3.0 12/11/19 07:42 84 12/11/19 04:00 81 12/11/19 04:00 97.6 81 20 123/65 (84) 96 12/11/19 04:00 Nasal Cannula 3.0 12/11/19 00:00 Nasal Cannula 3.0 12/11/19 00:00 83 12/11/19 00:00 97.4 82 20 110/57 (74) 99 12/10/19 22:00 85 118/57 12/10/19 20:00 Nasal Cannula 3.0 12/10/19 20:00 85 12/10/19 20:00 98.2 88 18 118/57 (77) 99 Intake and Output 12/11/19 12/12/19 19:00 07:00 Intake Total 1270.785 ml Output Total 900 ml 1050 ml Balance -900 ml 220.785 ml IV Total 1270.785 ml Output Urine Total 900 ml 1050 ml # Voids 1 # Bowel Movements 2 Labs Test 12/10/19 04:10 12/11/19 05:28 12/12/19 07:05 White Blood Count 10.8 K/UL (4.8-10.8) 9.2 K/UL (4.8-10.8) 7.0 K/UL (4.8-10.8) Red Blood Count 4.09 M/UL (4.70-6.10) 3.78 M/UL (4.70-6.10) 3.70 M/UL (4.70-6.10) Hemoglobin 12.5 G/DL (14.2-18.0) 11.8 G/DL (14.2-18.0) 11.4 G/DL (14.2-18.0) Hematocrit 37.5 % (42.0-52.0) 34.8 % (42.0-52.0) 34.1 % (42.0-52.0) Mean Corpuscular Volume 92 FL (80-99) 92 FL (80-99) 92 FL (80-99) Mean Corpuscular Hemoglobin 30.6 PG (27.0-31.0) 31.2 PG (27.0-31.0) 30.9 PG (27.0-31.0) Mean Corpuscular Hemoglobin Concent 33.3 G/DL (32.0-36.0) 33.9 G/DL (32.0-36.0) 33.5 G/DL (32.0-36.0) Red Cell Distribution Width 12.9 % (11.6-14.8) 13.0 % (11.6-14.8) 13.1 % (11.6-14.8) Platelet Count 135 K/UL (150-450) 139 K/UL (150-450) 135 K/UL (150-450) Mean Platelet Volume 7.5 FL (6.5-10.1) 7.6 FL (6.5-10.1) 6.9 FL (6.5-10.1) Neutrophils (%) (Auto) 80.4 % (45.0-75.0) 77.8 % (45.0-75.0) 72.7 % (45.0-75.0) Lymphocytes (%) (Auto) 10.5 % (20.0-45.0) 12.9 % (20.0-45.0) 16.5 % (20.0-45.0) Monocytes (%) (Auto) 8.2 % (1.0-10.0) 6.5 % (1.0-10.0) 6.7 % (1.0-10.0) Eosinophils (%) (Auto) 0.6 % (0.0-3.0) 2.4 % (0.0-3.0) 3.6 % (0.0-3.0) Basophils (%) (Auto) 0.3 % (0.0-2.0) 0.3 % (0.0-2.0) 0.4 % (0.0-2.0) Sodium Level 151 MMOL/L (136-145) 147 MMOL/L (136-145) 143 MMOL/L (136-145) Potassium Level 3.7 MMOL/L (3.5-5.1) 3.7 MMOL/L (3.5-5.1) 3.0 MMOL/L (3.5-5.1) Chloride Level 116 MMOL/L (98-107) 113 MMOL/L (98-107) 108 MMOL/L (98-107) Carbon Dioxide Level 27 MMOL/L (21-32) 30 MMOL/L (21-32) 31 MMOL/L (21-32) Anion Gap 8 mmol/L (5-15) 5 mmol/L (5-15) 4 mmol/L (5-15) Blood Urea Nitrogen 38 mg/dL (7-18) 31 mg/dL (7-18) 25 mg/dL (7-18) Creatinine 1.9 MG/DL (0.55-1.30) 1.7 MG/DL (0.55-1.30) 1.7 MG/DL (0.55-1.30) Estimat Glomerular Filtration Rate mL/min (>60) mL/min (>60) mL/min (>60) Glucose Level 202 MG/DL (74-106) 181 MG/DL (74-106) 187 MG/DL (74-106) Calcium Level 8.5 MG/DL (8.5-10.1) 8.3 MG/DL (8.5-10.1) 8.0 MG/DL (8.5-10.1) Total Bilirubin 9.1 MG/DL (0.2-1.0) 9.7 MG/DL (0.2-1.0) 9.8 MG/DL (0.2-1.0) Direct Bilirubin 7.9 MG/DL (0.0-0.3) 7.8 MG/DL (0.0-0.3) 8.7 MG/DL (0.0-0.3) Aspartate Amino Transf (AST/SGOT) 58 U/L (15-37) 57 U/L (15-37) 55 U/L (15-37) Alanine Aminotransferase (ALT/SGPT) 35 U/L (12-78) 33 U/L (12-78) 34 U/L (12-78) Alkaline Phosphatase 220 U/L (46-116) 208 U/L (46-116) 227 U/L (46-116) Total Protein 6.1 G/DL (6.4-8.2) 5.9 G/DL (6.4-8.2) 5.7 G/DL (6.4-8.2) Albumin 1.6 G/DL (3.4-5.0) 1.4 G/DL (3.4-5.0) 1.4 G/DL (3.4-5.0) Globulin 4.5 g/dL 4.5 g/dL 4.3 g/dL Albumin/Globulin Ratio 0.4 (1.0-2.7) 0.3 (1.0-2.7) 0.3 (1.0-2.7) Phosphorus Level 3.0 MG/DL (2.5-4.9) Magnesium Level 1.5 MG/DL (1.8-2.4) C-Reactive Protein, Quantitative 20.1 mg/dL (0.00-0.90) 13.3 mg/dL (0.00-0.90) Pro-B-Type Natriuretic Peptide 899 pg/mL (0-125) Erythrocyte Sedimentation Rate 76 MM/HR (0-20) Prothrombin Time 11.8 SEC (9.30-11.50) Prothromb Time International Ratio 1.1 (0.9-1.1) Ammonia 40 umol/L (11-32) Amylase Level 59 U/L (25-115) Lipase 193 U/L (73-393) Height (Feet): 5 Height (Inches): 6.00 Weight (Pounds): 159 Objective Physical Exam Vitals: noted General: no apparent distress HEENT: supple Resp: normal breath sounds, no respiratory distress, NC+ Cardiovascular: normal rate Gastrointestinal: normal inspection, non tender, soft, normal bowel sounds, non -distended Skin: normal inspection, normal color, no rash, warm/dry, palpation normal, well hydrated Lymphatic: normal inspection, no adenopathy Damian Batres MD Dec 12, 2019 19:55
[2019-12-12 20:00] VITALS: BP 109/62
--- NOTE | 2019-12-12 20:50 | NUR ---
HAND-OFF: Report given to Mena Rousseau- pt. remains stable and no signs of distress noted. Aware pt. will be NPO at midnight.
--- NOTE | 2019-12-12 21:00 | NUR ---
NURSE NOTES: Received report from JAMAICA Dela Cruz, Pt. received in bed lying in semi-fowlers, eyes closed, arousable to name. Family just left, Pt has crackles, and called for RT treatment, order to be obtained and RT to come. Bed locked in lowest position, bed alarm on side rails up x3 On 3 L O2 via NC , NGT to rt. nare intact- to start feed as xray showed NGT in place.- Was endorsed that pt is to be NPO at midnight for CT of abd and pelvis without contrast tomorrow am 2/3 at 0700. Condom cath intact and draining to gravity, LFA 22G iv appears occluded. 18G D5W at 100cc/hr- iv intact and patent.
[2019-12-12] MEDS: Tamsulosin 0.4mg cap ORAL SCH (21:26)
--- NOTE | 2019-12-12 21:30 | General Progress Note ---
Assessment/Plan Problem List: (1) Sepsis ICD Codes: A41.9 - Sepsis, unspecified organism SNOMED: 87227925 Qualifiers: Qualified Codes: A41.9 - Sepsis, unspecified organism; R65.20 - Severe sepsis without septic shock; N17.9 - Acute kidney failure, unspecified (2) Alzheimer's dementia ICD Codes: G30.9 - Alzheimer's disease, unspecified; F02.80 - Dementia in other diseases classified elsewhere without behavioral disturbance SNOMED: 96792817 Qualifiers: Qualified Codes: G30.9 - Alzheimer's disease, unspecified; F02.80 - Dementia in other diseases classified elsewhere without behavioral disturbance (3) Elevated LFTs ICD Codes: R94.5 - Abnormal results of liver function studies SNOMED: 415488708, 842361920 (4) Cholestasis ICD Codes: K83.1 - Obstruction of bile duct SNOMED: 81796792 (5) Hyperbilirubinemia ICD Codes: E80.6 - Other disorders of bilirubin metabolism SNOMED: 53899264 (6) Left lower lobe pneumonia ICD Codes: J18.9 - Pneumonia, unspecified organism SNOMED: 342699514 Qualifiers: Qualified Codes: J18.9 - Pneumonia, unspecified organism (7) Renal failure (ARF), acute on chronic ICD Codes: N17.9 - Acute kidney failure, unspecified; N18.9 - Chronic kidney disease, unspecified SNOMED: 343501987 Qualifiers: Qualified Codes: N17.9 - Acute kidney failure, unspecified; N18.3 - Chronic kidney disease, stage 3 (moderate) Status: progressing, unchanged Assessment/Plan: elevated lft sepsis pna not improving malnutrition not ready for peg abx per id hypernatremia azotemia resp insuff peg per dr shiela delcid.elevated sugar Subjective ROS Limited/Unobtainable: Yes Allergies: Coded Allergies: No Known Allergies (Unverified , 03/19/17) Objective Last 24 Hour Vital Signs Date Time Temp Pulse Resp B/P (MAP) Pulse Ox O2 Delivery O2 Flow Rate FiO2 12/12/19 20:00 Nasal Cannula 3.0 12/12/19 20:00 98.0 85 20 109/62 (78) 97 12/12/19 16:00 Nasal Cannula 3.0 12/12/19 16:00 98.4 75 20 143/88 (106) 97 12/12/19 16:00 81 12/12/19 13:22 75 106/59 12/12/19 12:00 97.7 81 20 106/59 (75) 96 12/12/19 12:00 75 12/12/19 12:00 Nasal Cannula 3.0 12/12/19 08:00 73 12/12/19 08:00 97.8 73 20 113/51 (71) 96 12/12/19 08:00 Nasal Cannula 3.0 12/12/19 05:51 81 127/63 12/12/19 04:00 Nasal Cannula 3.0 12/12/19 04:00 97.0 90 20 127/63 (84) 96 12/12/19 04:00 81 12/12/19 00:00 84 12/12/19 00:00 98.4 89 20 111/61 (78) 96 12/12/19 00:00 Nasal Cannula 3.0 12/11/19 22:27 95 122/66 Intake and Output 12/11/19 12/12/19 19:00 07:00 Intake Total 1270.785 ml Output Total 900 ml 1050 ml Balance -900 ml 220.785 ml IV Total 1270.785 ml Output Urine Total 900 ml 1050 ml # Voids 1 # Bowel Movements 2 Laboratory Tests 12/12/19 07:05: White Blood Count 7.0, Red Blood Count 3.70L, Hemoglobin 11.4L, Hematocrit 34.1L , Mean Corpuscular Volume 92, Mean Corpuscular Hemoglobin 30.9, Mean Corpuscular Hemoglobin Concent 33.5, Red Cell Distribution Width 13.1, Platelet Count 135L, Mean Platelet Volume 6.9, Neutrophils (%) (Auto) 72.7, Lymphocytes ( %) (Auto) 16.5L, Monocytes (%) (Auto) 6.7, Eosinophils (%) (Auto) 3.6H, Basophils (%) (Auto) 0.4, Erythrocyte Sedimentation Rate 76H, Prothrombin Time 11.8H, Prothromb Time International Ratio 1.1, Sodium Level 143, Potassium Level 3.0L, Chloride Level 108H, Carbon Dioxide Level 31, Anion Gap 4L, Blood Urea Nitrogen 25H, Creatinine 1.7H, Estimat Glomerular Filtration Rate , Glucose Level 187H, Calcium Level 8.0L, Total Bilirubin 9.8H, Direct Bilirubin 8.7H, Aspartate Amino Transf (AST/SGOT) 55H, Alanine Aminotransferase (ALT/SGPT ) 34, Alkaline Phosphatase 227H, Ammonia 40H, C-Reactive Protein, Quantitative 13.3H, Total Protein 5.7L, Albumin 1.4L, Globulin 4.3, Albumin/Globulin Ratio 0.3L, Amylase Level 59, Lipase 193, Anti-Nuclear Antibody Screen [Pending], F- Actin IgG Antibody [Pending], Seth-Reed Virus Capsid Ag IgM Ab [Pending], Herpes Simplex Virus I IgM Ab (IFA) [Pending], Herpes Simplex Virus II IgM Ab ( IFA [Pending] Height (Feet): 5 Height (Inches): 6.00 Weight (Pounds): 159 General Appearance: confused Cardiovascular: normal rate Respiratory/Chest: lungs clear Abdomen: soft Gurmeet Elizabeth MD Dec 12, 2019 21:30
[2019-12-12] MEDS ORDERED: Albuterol/Ipratropium 3ml neb HHN PRN (21:45)
--- NOTE | 2019-12-12 23:13 | NUR ---
NURSE NOTES: Pt has right heel dti with lateral aspect redness, and redness on left heel. Optifoams applied to bilateral heels and heels floated
[2019-12-13] VITALS: BP 112/50
[2019-12-13 04:00] VITALS: BP 127/56
[2019-12-13] MEDS: Piperacillin/Tazobactam 3.375 GM in NS 110 ML IVPB SCH ×3 (04:54→22:00)
[2019-12-13] MEDS: dilTIAZem HCl 30mg tab ORAL SCH ×3 (05:25→22:00)
[2019-12-13] MEDS: NovoLOG Insulin Flexpen SUBQ SCH ×4 (05:32→21:00)
[2019-12-13 07:04] LABS: BASOPHILS % (AUTO) 0.5 % (0.0-2.0); EOSINOPHILS % (AUTO) 3.1 % (0.0-3.0); HEMATOCRIT 33.9 % (42.0-52.0); HEMOGLOBIN 11.8 G/DL (14.2-18.0); LYMPHOCYTES % (AUTO) 23.3 % (20.0-45.0); MEAN CORPUSCULAR VOLUME 90 FL (80-99); MONOCYTES % (AUTO) 7.6 % (1.0-10.0); NEUTROPHILS % (AUTO) 65.4 % (45.0-75.0); PLATELET COUNT 163 K/UL (150-450); RED BLOOD COUNT 3.75 M/UL (4.70-6.10); RED CELL DISTRIBUTION WIDTH 12.9 % (11.6-14.8); WHITE BLOOD COUNT 7.3 K/UL (4.8-10.8)
[2019-12-13 07:09] LABS: ALANINE AMINOTRANSFERASE 33 U/L (12-78); ALBUMIN 1.4 G/DL (3.4-5.0); ALBUMIN/GLOBULIN RATIO 0.3 (1.0-2.7); ALKALINE PHOSPHATASE 255 U/L (46-116); ANION GAP 7 mmol/L (5-15); ASPARTATE AMINO TRANSFERASE 55 U/L (15-37); BILIRUBIN,TOTAL 10.2 MG/DL (0.2-1.0); BLOOD UREA NITROGEN 21 mg/dL (7-18); CALCIUM 7.9 MG/DL (8.5-10.1); CARBON DIOXIDE 30 MMOL/L (21-32); CHLORIDE 103 MMOL/L (98-107); CREATININE 1.6 MG/DL (0.55-1.30); PHOSPHORUS 2.7 MG/DL (2.5-4.9); POTASSIUM 3.2 MMOL/L (3.5-5.1); SODIUM 139 MMOL/L (136-145)
[2019-12-13 07:15] LABS: BILIRUBIN,DIRECT 8.8 MG/DL (0.0-0.3)
--- NOTE | 2019-12-13 07:49 | NUR ---
HAND-OFF: Report given to JAMAICA Hopper.
--- NOTE | 2019-12-13 07:50 | NUR ---
NURSE NOTES: Received report from JAMAICA Garcia. The patient is resting on the bed but is congested and has jaundice. The patient's bed in the lowest position, call light in reach, and fall and aspiration precaution reinforced. IV site intact and patent. Oxygen therapy per order. NG tube in place. Bilateral soft wrist restraints intact and circulation and skin is intact. The patient is still agitated. Will continue plan of care.
[2019-12-13 08:00] VITALS: BP 114/54
--- NOTE | 2019-12-13 08:00 | Cardiac Electrophysiology PN ---
Assessment/Plan Assessment/Plan 1. Hypertension. On Cardizem 30 mg every 8 hours via NG tube. Echo Nl EF 2. Shortness of breath secondary to pneumonia. 3. Nonsustained VT 5 beats. K was replaced. Nl EF 4. Pneumonia, on Abx per Dr. Barth. 5. Renal failure. 6. Lactic acidosis. 7. Hyperbilirubinemia with total bilirubin of >10. Fu Dr Escalante MRI abdomen couldn't be done as unable to lay flat Going for CT abdomen and Pelvis. 8. Renal failure with BUN of 35 and creatinine of 2.0. 9. Dysphagia. Passed swallow eval. BUT NGT feeding due to AMS 10. Dementia. DW RN Subjective Subjective In SR. Confused in restraints. Passed swallow eval but for AMS. NGT feeding going on. No more VT NPO for CT abdomen and Pelvis for high bilirubin Objective Last 24 Hour Vital Signs Date Time Temp Pulse Resp B/P (MAP) Pulse Ox O2 Delivery O2 Flow Rate FiO2 12/13/19 05:25 75 127/58 12/13/19 04:00 97.5 74 20 127/56 (79) 97 12/13/19 04:00 75 12/13/19 04:00 Nasal Cannula 3.0 12/13/19 00:00 Nasal Cannula 3.0 12/13/19 00:00 98.0 83 20 112/50 (70) 95 12/13/19 00:00 86 12/12/19 22:53 Nasal Cannula 3.0 12/12/19 21:25 85 110/62 12/12/19 21:00 74 18 94 Nasal Cannula 2.0 28 12/12/19 21:00 95 Nasal Cannula 2.0 28 12/12/19 21:00 87 17 98 Nasal Cannula 2.0 28 82 18 95 12/12/19 20:00 Nasal Cannula 3.0 12/12/19 20:00 98.0 85 20 109/62 (78) 97 12/12/19 20:00 81 12/12/19 16:00 Nasal Cannula 3.0 12/12/19 16:00 98.4 75 20 143/88 (106) 97 12/12/19 16:00 81 12/12/19 13:22 75 106/59 12/12/19 12:00 97.7 81 20 106/59 (75) 96 12/12/19 12:00 75 12/12/19 12:00 Nasal Cannula 3.0 12/12/19 08:00 73 12/12/19 08:00 97.8 73 20 113/51 (71) 96 12/12/19 08:00 Nasal Cannula 3.0 Intake and Output 12/12/19 12/13/19 19:00 07:00 Intake Total 910.0 ml Output Total 900 ml Balance -900 ml 910.0 ml IV Total 910.0 ml Output Urine Total 900 ml Laboratory Tests Test 12/13/19 05:50 White Blood Count 7.3 K/UL (4.8-10.8) Red Blood Count 3.75 M/UL (4.70-6.10) L Hemoglobin 11.8 G/DL (14.2-18.0) L Hematocrit 33.9 % (42.0-52.0) L Mean Corpuscular Volume 90 FL (80-99) Mean Corpuscular Hemoglobin 31.5 PG (27.0-31.0) H Mean Corpuscular Hemoglobin Concent 34.9 G/DL (32.0-36.0) Red Cell Distribution Width 12.9 % (11.6-14.8) Platelet Count 163 K/UL (150-450) Mean Platelet Volume 7.9 FL (6.5-10.1) Neutrophils (%) (Auto) 65.4 % (45.0-75.0) Lymphocytes (%) (Auto) 23.3 % (20.0-45.0) Monocytes (%) (Auto) 7.6 % (1.0-10.0) Eosinophils (%) (Auto) 3.1 % (0.0-3.0) H Basophils (%) (Auto) 0.5 % (0.0-2.0) Sodium Level 139 MMOL/L (136-145) Potassium Level 3.2 MMOL/L (3.5-5.1) L Chloride Level 103 MMOL/L (98-107) Carbon Dioxide Level 30 MMOL/L (21-32) Anion Gap 7 mmol/L (5-15) Blood Urea Nitrogen 21 mg/dL (7-18) H Creatinine 1.6 MG/DL (0.55-1.30) H Estimat Glomerular Filtration Rate mL/min (>60) Glucose Level 173 MG/DL (74-106) H Uric Acid 2.3 MG/DL (2.6-7.2) L Calcium Level 7.9 MG/DL (8.5-10.1) L Phosphorus Level 2.7 MG/DL (2.5-4.9) Magnesium Level 1.5 MG/DL (1.8-2.4) L Total Bilirubin 10.2 MG/DL (0.2-1.0) H Direct Bilirubin 8.8 MG/DL (0.0-0.3) H Aspartate Amino Transf (AST/SGOT) 55 U/L (15-37) H Alanine Aminotransferase (ALT/SGPT) 33 U/L (12-78) Alkaline Phosphatase 255 U/L (46-116) H Total Protein 6.0 G/DL (6.4-8.2) L Albumin 1.4 G/DL (3.4-5.0) L Globulin 4.6 g/dL Albumin/Globulin Ratio 0.3 (1.0-2.7) L Objective HEAD AND NECK: Shows no JVD.Sclera icteric. NG tube is in LUNGS: Decreased breath sounds. CARDIOVASCULAR: Shows regular S1 and S2 with no gallop. ABDOMEN: Soft. EXTREMITIES: No pitting edema. Kyle Reynoso MD Dec 13, 2019 08:00
--- NOTE | 2019-12-13 08:45 | Hematology/Onc Progress Note ---
Assessment/Plan Assessment/Plan Assessment and Recs: # Thrombocytopenia -- is likely related to sepsis from pna, currently in 100- 150 range --> smear has been ordered and reviewed --> meds are noted --> okay to continue on abx --> plt trend 169-->148k-->141-->128-->135-->163 --> hold off steriods --> hep and hiv NEG --> us abd negative for cirrhosis/hsm # Leukocytosis due to pna/lactic acidosis --> as per above --> smear has been reviewed --> as per id, on vanc/zosyn-->zosyn --> wbc trend: 16.7 -->14.1-->10.8-->7 # Anemia of chronic disease --> in this case due to hemodilution --> hgb trend: 12.3-->11.8 # Hyperbilirubinemia --> gi aware as per their recs -> may need ercp/mrcp as per gi --> mri as needed # Dysphagia --> for peg # Cholestasis # Biliary obstruction # Elevated LFTs # PNA/Sepsis Appreciate consultation and will tasha Rn. Subjective Constitutional: Denies: no symptoms, chills, fever, malaise, weakness, other HEENT: Denies: no symptoms, eye pain, blurred vision, tearing, double vision, ear pain, ear discharge, nose pain, nose congestion, throat pain, throat swelling, mouth pain, mouth swelling, other Cardiovascular: Denies: no symptoms, chest pain, edema, irregular heart rate, lightheadedness, palpitations, syncope, other Respiratory: Denies: no symptoms, cough, shortness of breath, SOB with excertion, SOB at rest, sputum, wheezing, other Gastrointestinal/Abdominal: Denies: no symptoms, abdomen distended, abdominal pain, black stools, tarry stools, blood in stool, constipated, diarrhea, difficulty swallowing, nausea, poor appetite, poor fluid intake, rectal bleeding , vomiting, other Genitourinary: Denies: no symptoms, burning, discharge, frequency, flank pain, hematuria, incontinence, pain, urgency, other Neurologic/Psychiatric: Denies: no symptoms, anxiety, depressed, emotional problems, headache, numbness, paresthesia, pre-existing deficit, seizure, tingling, tremors, weakness, other Endocrine: Denies: no symptoms, excessive sweating, flushing, intolerance to cold, intolerance to heat, increased hunger, increased thirst, increased urine, unexplained weight gain, unexplained weight loss, other Allergies: Coded Allergies: No Known Allergies (Unverified , 03/19/17) Subjective 12/08: awake, no acute events, wbc 16.7, afebrile, on abx, us abd negative 12/09: no acute distress, lft's worsening, wbc improving, nc 3l 12/10: labs noted, plt remains stable, is unable to have mri, no bleeding 12/12: bilat wrist restraints, wbc improved, remains on zosyn 12/13: on ngt feeds and also abx, with restraints, remains confused Objective Objective Current Medications Medications (Trade) Dose Ordered Sig/Filemon Route PRN Reason Start Time Stop Time Status Last Admin Dose Admin Acetaminophen (Tylenol) 325 mg Q6H PRN ORAL Mild Pain/Temp > 100.5 12/11/19 03:30 01/06/20 09:29 Acetaminophen (Tylenol) 650 mg Q4H PRN RECTAL Mild Pain (Pain Scale 1-3) 12/11/19 04:15 01/09/20 00:14 Albuterol/ Ipratropium (Albuterol/ Ipratropium) 3 ml Q4H PRN HHN Shortness of Breath 12/12/19 21:45 12/17/19 21:44 12/12/19 22:06 Barium Sulfate (Readi-Cat 2) 450 ml NOW PRN ORAL Radiology Procedure 12/12/19 15:15 12/14/19 15:08 Dextrose 1,000 ml @ 100 mls/hr Q10H IV 12/11/19 02:45 01/08/20 08:29 12/13/19 04:54 Dextrose (Dextrose 50%) 25 ml Q30M PRN IV Hypoglycemia 12/11/19 03:15 01/05/20 11:44 Dextrose (Dextrose 50%) 50 ml Q30M PRN IV Hypoglycemia 12/11/19 03:15 01/05/20 11:44 Diltiazem HCl (Cardizem) 30 mg EVERY 8 HOURS ORAL 12/11/19 06:00 2/26/20 13:59 12/13/19 05:25 Docusate Sodium (Colace) 100 mg TID ORAL 12/11/19 09:00 01/05/20 17:59 12/12/19 13:21 Insulin Aspart (NovoLOG) BEFORE MEALS AND HS SUBQ 12/11/19 06:30 01/05/20 16:29 12/12/19 21:29 Pantoprazole (Protonix) 40 mg BID ORAL 12/11/19 09:00 01/05/20 14:44 12/12/19 08:53 Piperacillin Sod/ Tazobactam Sod 3.375 gm/Sodium Chloride 110 ml @ 27.5 mls/hr EVERY 8 HOURS IVPB 12/11/19 06:00 12/16/19 13:59 12/13/19 04:54 Potassium Chloride 100 ml @ 100 mls/hr Q1HR IVPB 12/13/19 10:00 12/13/19 12:59 Potassium Chloride (K-Dur) 40 meq TWICE A DAY ORAL 12/11/19 09:00 01/08/20 09:59 12/12/19 08:53 Quetiapine Fumarate (SEROqueL) 25 mg EVERY 6 HOURS PRN ORAL For Anxiety 12/11/19 03:00 01/09/20 02:59 Risperidone (RisperDAL) 0.5 mg Q12HR ORAL 12/11/19 09:00 01/05/20 08:59 12/12/19 21:26 Tamsulosin HCl (Flomax) 0.4 mg BEDTIME ORAL 12/11/19 21:00 01/05/20 20:59 12/12/19 21:26 Last 24 Hour Vital Signs Date Time Temp Pulse Resp B/P (MAP) Pulse Ox O2 Delivery O2 Flow Rate FiO2 12/13/19 05:25 75 127/58 12/13/19 04:00 97.5 74 20 127/56 (79) 97 12/13/19 04:00 75 12/13/19 04:00 Nasal Cannula 3.0 12/13/19 00:00 Nasal Cannula 3.0 12/13/19 00:00 98.0 83 20 112/50 (70) 95 12/13/19 00:00 86 12/12/19 22:53 Nasal Cannula 3.0 12/12/19 21:25 85 110/62 12/12/19 21:00 74 18 94 Nasal Cannula 2.0 28 12/12/19 21:00 95 Nasal Cannula 2.0 28 12/12/19 21:00 87 17 98 Nasal Cannula 2.0 28 82 18 95 12/12/19 20:00 Nasal Cannula 3.0 12/12/19 20:00 98.0 85 20 109/62 (78) 97 12/12/19 20:00 81 12/12/19 16:00 Nasal Cannula 3.0 12/12/19 16:00 98.4 75 20 143/88 (106) 97 12/12/19 16:00 81 12/12/19 13:22 75 106/59 12/12/19 12:00 97.7 81 20 106/59 (75) 96 12/12/19 12:00 75 12/12/19 12:00 Nasal Cannula 3.0 12/12/19 08:00 73 12/12/19 08:00 97.8 73 20 113/51 (71) 96 12/12/19 08:00 Nasal Cannula 3.0 12/12/19 05:51 81 127/63 12/12/19 04:00 Nasal Cannula 3.0 12/12/19 04:00 97.0 90 20 127/63 (84) 96 12/12/19 04:00 81 12/12/19 00:00 84 12/12/19 00:00 98.4 89 20 111/61 (78) 96 12/12/19 00:00 Nasal Cannula 3.0 12/11/19 22:27 95 122/66 12/11/19 20:00 98.7 95 20 122/66 (84) 96 12/11/19 20:00 Nasal Cannula 3.0 12/11/19 20:00 81 12/11/19 19:36 81 18 95 Nasal Cannula 2.0 28 12/11/19 19:36 97 Nasal Cannula 2.0 28 12/11/19 16:15 82 12/11/19 16:00 98.4 82 18 135/70 (91) 94 12/11/19 16:00 Nasal Cannula 3.0 12/11/19 14:32 109 153/93 12/11/19 12:00 Nasal Cannula 3.0 12/11/19 12:00 98.2 109 20 153/93 (113) 94 12/11/19 11:46 83 Intake and Output 12/12/19 12/13/19 19:00 07:00 Intake Total 910.0 ml Output Total 900 ml Balance -900 ml 910.0 ml IV Total 910.0 ml Output Urine Total 900 ml Labs Test 12/11/19 05:28 12/12/19 07:05 12/13/19 05:50 White Blood Count 9.2 K/UL (4.8-10.8) 7.0 K/UL (4.8-10.8) 7.3 K/UL (4.8-10.8) Red Blood Count 3.78 M/UL (4.70-6.10) 3.70 M/UL (4.70-6.10) 3.75 M/UL (4.70-6.10) Hemoglobin 11.8 G/DL (14.2-18.0) 11.4 G/DL (14.2-18.0) 11.8 G/DL (14.2-18.0) Hematocrit 34.8 % (42.0-52.0) 34.1 % (42.0-52.0) 33.9 % (42.0-52.0) Mean Corpuscular Volume 92 FL (80-99) 92 FL (80-99) 90 FL (80-99) Mean Corpuscular Hemoglobin 31.2 PG (27.0-31.0) 30.9 PG (27.0-31.0) 31.5 PG (27.0-31.0) Mean Corpuscular Hemoglobin Concent 33.9 G/DL (32.0-36.0) 33.5 G/DL (32.0-36.0) 34.9 G/DL (32.0-36.0) Red Cell Distribution Width 13.0 % (11.6-14.8) 13.1 % (11.6-14.8) 12.9 % (11.6-14.8) Platelet Count 139 K/UL (150-450) 135 K/UL (150-450) 163 K/UL (150-450) Mean Platelet Volume 7.6 FL (6.5-10.1) 6.9 FL (6.5-10.1) 7.9 FL (6.5-10.1) Neutrophils (%) (Auto) 77.8 % (45.0-75.0) 72.7 % (45.0-75.0) 65.4 % (45.0-75.0) Lymphocytes (%) (Auto) 12.9 % (20.0-45.0) 16.5 % (20.0-45.0) 23.3 % (20.0-45.0) Monocytes (%) (Auto) 6.5 % (1.0-10.0) 6.7 % (1.0-10.0) 7.6 % (1.0-10.0) Eosinophils (%) (Auto) 2.4 % (0.0-3.0) 3.6 % (0.0-3.0) 3.1 % (0.0-3.0) Basophils (%) (Auto) 0.3 % (0.0-2.0) 0.4 % (0.0-2.0) 0.5 % (0.0-2.0) Sodium Level 147 MMOL/L (136-145) 143 MMOL/L (136-145) 139 MMOL/L (136-145) Potassium Level 3.7 MMOL/L (3.5-5.1) 3.0 MMOL/L (3.5-5.1) 3.2 MMOL/L (3.5-5.1) Chloride Level 113 MMOL/L (98-107) 108 MMOL/L (98-107) 103 MMOL/L (98-107) Carbon Dioxide Level 30 MMOL/L (21-32) 31 MMOL/L (21-32) 30 MMOL/L (21-32) Anion Gap 5 mmol/L (5-15) 4 mmol/L (5-15) 7 mmol/L (5-15) Blood Urea Nitrogen 31 mg/dL (7-18) 25 mg/dL (7-18) 21 mg/dL (7-18) Creatinine 1.7 MG/DL (0.55-1.30) 1.7 MG/DL (0.55-1.30) 1.6 MG/DL (0.55-1.30) Estimat Glomerular Filtration Rate mL/min (>60) mL/min (>60) mL/min (>60) Glucose Level 181 MG/DL (74-106) 187 MG/DL (74-106) 173 MG/DL (74-106) Calcium Level 8.3 MG/DL (8.5-10.1) 8.0 MG/DL (8.5-10.1) 7.9 MG/DL (8.5-10.1) Phosphorus Level 3.0 MG/DL (2.5-4.9) 2.7 MG/DL (2.5-4.9) Magnesium Level 1.5 MG/DL (1.8-2.4) 1.5 MG/DL (1.8-2.4) Total Bilirubin 9.7 MG/DL (0.2-1.0) 9.8 MG/DL (0.2-1.0) 10.2 MG/DL (0.2-1.0) Direct Bilirubin 7.8 MG/DL (0.0-0.3) 8.7 MG/DL (0.0-0.3) 8.8 MG/DL (0.0-0.3) Aspartate Amino Transf (AST/SGOT) 57 U/L (15-37) 55 U/L (15-37) 55 U/L (15-37) Alanine Aminotransferase (ALT/SGPT) 33 U/L (12-78) 34 U/L (12-78) 33 U/L (12-78) Alkaline Phosphatase 208 U/L (46-116) 227 U/L (46-116) 255 U/L (46-116) C-Reactive Protein, Quantitative 20.1 mg/dL (0.00-0.90) 13.3 mg/dL (0.00-0.90) Pro-B-Type Natriuretic Peptide 899 pg/mL (0-125) Total Protein 5.9 G/DL (6.4-8.2) 5.7 G/DL (6.4-8.2) 6.0 G/DL (6.4-8.2) Albumin 1.4 G/DL (3.4-5.0) 1.4 G/DL (3.4-5.0) 1.4 G/DL (3.4-5.0) Globulin 4.5 g/dL 4.3 g/dL 4.6 g/dL Albumin/Globulin Ratio 0.3 (1.0-2.7) 0.3 (1.0-2.7) 0.3 (1.0-2.7) Erythrocyte Sedimentation Rate 76 MM/HR (0-20) Prothrombin Time 11.8 SEC (9.30-11.50) Prothromb Time International Ratio 1.1 (0.9-1.1) Ammonia 40 umol/L (11-32) Amylase Level 59 U/L (25-115) Lipase 193 U/L (73-393) Uric Acid 2.3 MG/DL (2.6-7.2) Height (Feet): 5 Height (Inches): 6.00 Weight (Pounds): 159 Objective Physical Exam Vitals: noted General: no apparent distress HEENT: supple Resp: normal breath sounds, no respiratory distress, NC+ Cardiovascular: normal rate Gastrointestinal: normal inspection, non tender, soft, normal bowel sounds, non -distended Skin: normal inspection, normal color, no rash, warm/dry, palpation normal, well hydrated Lymphatic: normal inspection, no adenopathy Damian Batres MD Dec 13, 2019 08:45
[2019-12-13] MEDS: Docusate 100mg cap ORAL SCH ×3 (09:23→17:15)
--- NOTE | 2019-12-13 09:30 | NUR ---
NURSE NOTES: Notified Dr. Ashraf regarding abnormal Potassium and Magnesium. Dr. Ashraf ordered supplement of Potassium and Magnesium. Will administer as ordered. Will continue plan of care.
--- NOTE | 2019-12-13 10:00 | NUR ---
NURSE NOTES: NILDA Wilcox at the bedside assessed the patient. Informed abnormal lab including elevated total and direct bilirubin and AST level. Also notified that the patient just pulled out NGT. Also notified that the patient has generalized jaundice. Per NILDA Wilcox insert NGT again after taking break. Unable to take CT of abdomen and pelvis at this time as the patient pulled out NGT and cannot administer oral contrast. The patient is resting on the bed. Will continue plan of care.
--- NOTE | 2019-12-13 10:25 | Pulmonology Progress Note ---
Assessment/Plan Assessment/Plan IMPRESSION: 1. Left lower lobe pneumonia. Reviewed CXR with radiology; no definite pneumonia seen. 2. Sepsis with lactic acidemia. 3. Acute renal insufficiency. 4. History of CHF. 5. Dementia. 6. Jaundice; has intra-abdominal/biliary issue; GI and surgery following DISCUSSION: Continue antibiotics. I will follow carefully as respiratory center consultant. GI/surgery following. Currently saturating well on low flow O2 Kevin Lincoln M.D. Subjective Interval Events: None new Constitutional: Reports: no symptoms HEENT: Repors: no symptoms Respiratory: Reports: no symptoms Cardiovascular: Reports: no symptoms Gastrointestinal/Abdominal: Reports: no symptoms Genitourinary: Reports: no symptoms Allergies: Coded Allergies: No Known Allergies (Unverified , 03/19/17) Objective Last 24 Hour Vital Signs Date Time Temp Pulse Resp B/P (MAP) Pulse Ox O2 Delivery O2 Flow Rate FiO2 12/13/19 05:25 75 127/58 12/13/19 04:00 97.5 74 20 127/56 (79) 97 12/13/19 04:00 75 12/13/19 04:00 Nasal Cannula 3.0 12/13/19 00:00 Nasal Cannula 3.0 12/13/19 00:00 98.0 83 20 112/50 (70) 95 12/13/19 00:00 86 12/12/19 22:53 Nasal Cannula 3.0 12/12/19 21:25 85 110/62 12/12/19 21:00 74 18 94 Nasal Cannula 2.0 28 12/12/19 21:00 95 Nasal Cannula 2.0 28 12/12/19 21:00 87 17 98 Nasal Cannula 2.0 28 82 18 95 12/12/19 20:00 Nasal Cannula 3.0 12/12/19 20:00 98.0 85 20 109/62 (78) 97 12/12/19 20:00 81 12/12/19 16:00 Nasal Cannula 3.0 12/12/19 16:00 98.4 75 20 143/88 (106) 97 12/12/19 16:00 81 12/12/19 13:22 75 106/59 12/12/19 12:00 97.7 81 20 106/59 (75) 96 12/12/19 12:00 75 12/12/19 12:00 Nasal Cannula 3.0 Intake and Output 12/12/19 12/13/19 19:00 07:00 Intake Total 910.0 ml Output Total 900 ml Balance -900 ml 910.0 ml IV Total 910.0 ml Output Urine Total 900 ml General Appearance: no acute distress HEENT: normocephalic Respiratory/Chest: chest wall non-tender, lungs clear Cardiovascular: normal peripheral pulses, normal rate Abdomen: normal bowel sounds Laboratory Tests 12/13/19 05:50: White Blood Count 7.3, Red Blood Count 3.75L, Hemoglobin 11.8L, Hematocrit 33.9L , Mean Corpuscular Volume 90, Mean Corpuscular Hemoglobin 31.5H, Mean Corpuscular Hemoglobin Concent 34.9, Red Cell Distribution Width 12.9, Platelet Count 163, Mean Platelet Volume 7.9, Neutrophils (%) (Auto) 65.4, Lymphocytes (% ) (Auto) 23.3, Monocytes (%) (Auto) 7.6, Eosinophils (%) (Auto) 3.1H, Basophils (%) (Auto) 0.5, Sodium Level 139, Potassium Level 3.2L, Chloride Level 103, Carbon Dioxide Level 30, Anion Gap 7, Blood Urea Nitrogen 21H, Creatinine 1.6H, Estimat Glomerular Filtration Rate , Glucose Level 173H, Uric Acid 2.3L, Calcium Level 7.9L, Phosphorus Level 2.7, Magnesium Level 1.5L, Total Bilirubin 10.2H, Direct Bilirubin 8.8H, Aspartate Amino Transf (AST/SGOT) 55H, Alanine Aminotransferase (ALT/SGPT) 33, Alkaline Phosphatase 255H, Total Protein 6.0L, Albumin 1.4L, Globulin 4.6, Albumin/Globulin Ratio 0.3L Current Medications Medications (Trade) Dose Ordered Sig/Filemon Route PRN Reason Start Time Stop Time Status Last Admin Dose Admin Acetaminophen (Tylenol) 325 mg Q6H PRN ORAL Mild Pain/Temp > 100.5 12/11/19 03:30 01/06/20 09:29 Acetaminophen (Tylenol) 650 mg Q4H PRN RECTAL Mild Pain (Pain Scale 1-3) 12/11/19 04:15 01/09/20 00:14 Albuterol/ Ipratropium (Albuterol/ Ipratropium) 3 ml Q4H PRN HHN Shortness of Breath 12/12/19 21:45 12/17/19 21:44 12/12/19 22:06 Barium Sulfate (Readi-Cat 2) 450 ml NOW PRN ORAL Radiology Procedure 12/12/19 15:15 12/14/19 15:08 Dextrose 1,000 ml @ 100 mls/hr Q10H IV 12/11/19 02:45 01/08/20 08:29 12/13/19 04:54 Dextrose (Dextrose 50%) 25 ml Q30M PRN IV Hypoglycemia 12/11/19 03:15 01/05/20 11:44 Dextrose (Dextrose 50%) 50 ml Q30M PRN IV Hypoglycemia 12/11/19 03:15 01/05/20 11:44 Diltiazem HCl (Cardizem) 30 mg EVERY 8 HOURS ORAL 12/11/19 06:00 01/05/20 13:59 12/13/19 05:25 Docusate Sodium (Colace) 100 mg TID ORAL 12/11/19 09:00 01/05/20 17:59 12/13/19 09:23 Insulin Aspart (NovoLOG) BEFORE MEALS AND HS SUBQ 12/11/19 06:30 01/05/20 16:29 12/12/19 21:29 Pantoprazole (Protonix) 40 mg BID ORAL 12/11/19 09:00 01/05/20 14:44 12/13/19 09:24 Piperacillin Sod/ Tazobactam Sod 3.375 gm/Sodium Chloride 110 ml @ 27.5 mls/hr EVERY 8 HOURS IVPB 12/11/19 06:00 12/16/19 13:59 12/13/19 04:54 Potassium Chloride 100 ml @ 100 mls/hr Q1HR IVPB 12/13/19 10:00 12/13/19 12:59 12/13/19 09:25 Potassium Chloride (K-Dur) 40 meq TWICE A DAY ORAL 12/11/19 09:00 01/08/20 09:59 12/13/19 09:24 Quetiapine Fumarate (SEROqueL) 25 mg EVERY 6 HOURS PRN ORAL For Anxiety 12/11/19 03:00 01/09/20 02:59 Risperidone (RisperDAL) 0.5 mg Q12HR ORAL 12/11/19 09:00 01/05/20 08:59 12/13/19 09:24 Tamsulosin HCl (Flomax) 0.4 mg BEDTIME ORAL 12/11/19 21:00 01/05/20 20:59 12/12/19 21:26 Kevin Lincoln MD Dec 13, 2019 10:25
--- NOTE | 2019-12-13 10:41 | Nephrology Progress Note ---
Assessment/Plan Problem List: (1) Renal failure (ARF), acute on chronic (2) Alzheimer's dementia (3) Sepsis (4) UTI (urinary tract infection) (5) High bilirubin Assessment Acute on Chronic renal failure- CHF- Past echo 55% EjFx Sepsis, High Lactate- Leukocytosis Left lower lobe pneumonia Alzheimer's dementia UTI (urinary tract infection) Hyperglycemia, DM II Plan mag supplement 2D echo noted KCL IV and Po as needed slow hydrate- D5w monitor renal parameters correct electrolytes BP and BS in check per orders Subjective ROS Limited/Unobtainable: Yes Constitutional: Reports: malaise Objective Objective Last 24 Hour Vital Signs Date Time Temp Pulse Resp B/P (MAP) Pulse Ox O2 Delivery O2 Flow Rate FiO2 12/13/19 05:25 75 127/58 12/13/19 04:00 97.5 74 20 127/56 (79) 97 12/13/19 04:00 75 12/13/19 04:00 Nasal Cannula 3.0 12/13/19 00:00 Nasal Cannula 3.0 12/13/19 00:00 98.0 83 20 112/50 (70) 95 12/13/19 00:00 86 12/12/19 22:53 Nasal Cannula 3.0 12/12/19 21:25 85 110/62 12/12/19 21:00 74 18 94 Nasal Cannula 2.0 28 12/12/19 21:00 95 Nasal Cannula 2.0 28 12/12/19 21:00 87 17 98 Nasal Cannula 2.0 28 82 18 95 12/12/19 20:00 Nasal Cannula 3.0 12/12/19 20:00 98.0 85 20 109/62 (78) 97 12/12/19 20:00 81 12/12/19 16:00 Nasal Cannula 3.0 12/12/19 16:00 98.4 75 20 143/88 (106) 97 12/12/19 16:00 81 12/12/19 13:22 75 106/59 12/12/19 12:00 97.7 81 20 106/59 (75) 96 12/12/19 12:00 75 12/12/19 12:00 Nasal Cannula 3.0 Intake and Output 12/12/19 12/13/19 19:00 07:00 Intake Total 910.0 ml Output Total 900 ml Balance -900 ml 910.0 ml IV Total 910.0 ml Output Urine Total 900 ml Laboratory Tests 12/13/19 05:50: White Blood Count 7.3, Red Blood Count 3.75L, Hemoglobin 11.8L, Hematocrit 33.9L , Mean Corpuscular Volume 90, Mean Corpuscular Hemoglobin 31.5H, Mean Corpuscular Hemoglobin Concent 34.9, Red Cell Distribution Width 12.9, Platelet Count 163, Mean Platelet Volume 7.9, Neutrophils (%) (Auto) 65.4, Lymphocytes (% ) (Auto) 23.3, Monocytes (%) (Auto) 7.6, Eosinophils (%) (Auto) 3.1H, Basophils (%) (Auto) 0.5, Sodium Level 139, Potassium Level 3.2L, Chloride Level 103, Carbon Dioxide Level 30, Anion Gap 7, Blood Urea Nitrogen 21H, Creatinine 1.6H, Estimat Glomerular Filtration Rate , Glucose Level 173H, Uric Acid 2.3L, Calcium Level 7.9L, Phosphorus Level 2.7, Magnesium Level 1.5L, Total Bilirubin 10.2H, Direct Bilirubin 8.8H, Aspartate Amino Transf (AST/SGOT) 55H, Alanine Aminotransferase (ALT/SGPT) 33, Alkaline Phosphatase 255H, Total Protein 6.0L, Albumin 1.4L, Globulin 4.6, Albumin/Globulin Ratio 0.3L Height (Feet): 5 Height (Inches): 6.00 Weight (Pounds): 159 General Appearance: no apparent distress EENT: other - NGT+ Cardiovascular: regular rhythm Respiratory/Chest: decreased breath sounds Abdomen: distended Jose Ashraf MD Dec 13, 2019 10:41
--- NOTE | 2019-12-13 10:42 | GI Progress Note ---
Assessment/Plan Problems: (1) Elevated LFTs ICD Codes: R94.5 - Abnormal results of liver function studies SNOMED: 645897267, 108124300 (2) Biliary obstruction ICD Codes: K83.1 - Obstruction of bile duct SNOMED: 243635569 (3) Cholestasis ICD Codes: K83.1 - Obstruction of bile duct SNOMED: 87141493 (4) Hyperbilirubinemia ICD Codes: E80.6 - Other disorders of bilirubin metabolism SNOMED: 37477391 Status: unchanged Status Narrative Discussed with Dr. Escalante. Assessment/Plan This is a 89-year-old male patient that presented with hyperbilirubinemia with no transaminitis 2/2 to cholestasis (1) Elevated LFTs --> suspect hepatitis (? autoimmune, ? 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, ? cholestasis due to sepsis) (2) No Biliary obstruction on abdominal ultrasound --> will check CT to better visualize liver (3) Hyperbilirubinemia (4) Malnutrition MRCP unable to be done, patient desaturates >> fu APCT NGTFs fu CT fu autoimmune markers stop all non-vital meds will consider liver biopsy Repeat liver function test for tomorrow We will follow along on a daily basis with any additional recommendations The patient was seen and examined at bedside and all new and available data was reviewed in the patients chart. I agree with the above findings, impression and plan. (Patient seen earlier today. Signature stamp does not reflect patient encounter time.). - Bladimir Escalante MD Subjective Subjective limited Objective Last 24 Hour Vital Signs Date Time Temp Pulse Resp B/P (MAP) Pulse Ox O2 Delivery O2 Flow Rate FiO2 12/13/19 05:25 75 127/58 12/13/19 04:00 97.5 74 20 127/56 (79) 97 12/13/19 04:00 75 12/13/19 04:00 Nasal Cannula 3.0 12/13/19 00:00 Nasal Cannula 3.0 12/13/19 00:00 98.0 83 20 112/50 (70) 95 12/13/19 00:00 86 12/12/19 22:53 Nasal Cannula 3.0 12/12/19 21:25 85 110/62 12/12/19 21:00 74 18 94 Nasal Cannula 2.0 28 12/12/19 21:00 95 Nasal Cannula 2.0 28 12/12/19 21:00 87 17 98 Nasal Cannula 2.0 28 82 18 95 12/12/19 20:00 Nasal Cannula 3.0 12/12/19 20:00 98.0 85 20 109/62 (78) 97 12/12/19 20:00 81 12/12/19 16:00 Nasal Cannula 3.0 12/12/19 16:00 98.4 75 20 143/88 (106) 97 12/12/19 16:00 81 12/12/19 13:22 75 106/59 12/12/19 12:00 97.7 81 20 106/59 (75) 96 12/12/19 12:00 75 12/12/19 12:00 Nasal Cannula 3.0 Intake and Output 12/12/19 12/13/19 19:00 07:00 Intake Total 910.0 ml Output Total 900 ml Balance -900 ml 910.0 ml IV Total 910.0 ml Output Urine Total 900 ml Laboratory Tests Test 12/13/19 05:50 White Blood Count 7.3 K/UL (4.8-10.8) Red Blood Count 3.75 M/UL (4.70-6.10) L Hemoglobin 11.8 G/DL (14.2-18.0) L Hematocrit 33.9 % (42.0-52.0) L Mean Corpuscular Volume 90 FL (80-99) Mean Corpuscular Hemoglobin 31.5 PG (27.0-31.0) H Mean Corpuscular Hemoglobin Concent 34.9 G/DL (32.0-36.0) Red Cell Distribution Width 12.9 % (11.6-14.8) Platelet Count 163 K/UL (150-450) Mean Platelet Volume 7.9 FL (6.5-10.1) Neutrophils (%) (Auto) 65.4 % (45.0-75.0) Lymphocytes (%) (Auto) 23.3 % (20.0-45.0) Monocytes (%) (Auto) 7.6 % (1.0-10.0) Eosinophils (%) (Auto) 3.1 % (0.0-3.0) H Basophils (%) (Auto) 0.5 % (0.0-2.0) Sodium Level 139 MMOL/L (136-145) Potassium Level 3.2 MMOL/L (3.5-5.1) L Chloride Level 103 MMOL/L (98-107) Carbon Dioxide Level 30 MMOL/L (21-32) Anion Gap 7 mmol/L (5-15) Blood Urea Nitrogen 21 mg/dL (7-18) H Creatinine 1.6 MG/DL (0.55-1.30) H Estimat Glomerular Filtration Rate mL/min (>60) Glucose Level 173 MG/DL (74-106) H Uric Acid 2.3 MG/DL (2.6-7.2) L Calcium Level 7.9 MG/DL (8.5-10.1) L Phosphorus Level 2.7 MG/DL (2.5-4.9) Magnesium Level 1.5 MG/DL (1.8-2.4) L Total Bilirubin 10.2 MG/DL (0.2-1.0) H Direct Bilirubin 8.8 MG/DL (0.0-0.3) H Aspartate Amino Transf (AST/SGOT) 55 U/L (15-37) H Alanine Aminotransferase (ALT/SGPT) 33 U/L (12-78) Alkaline Phosphatase 255 U/L (46-116) H Total Protein 6.0 G/DL (6.4-8.2) L Albumin 1.4 G/DL (3.4-5.0) L Globulin 4.6 g/dL Albumin/Globulin Ratio 0.3 (1.0-2.7) L Height (Feet): 5 Height (Inches): 6.00 Weight (Pounds): 159 General Appearance: WD/WN, no apparent distress, alert Cardiovascular: normal rate Respiratory/Chest: normal breath sounds, no respiratory distress Abdominal Exam: normal bowel sounds, non tender, soft Extremities: normal range of motion, non-tender Demetrio Ash NP Dec 13, 2019 10:42
--- NOTE | 2019-12-13 11:02 | Surgery Progress Note ---
Surgery Progress Note Subjective Additional Comments lft's cont to worsen GI input noted exam stable Objective Last 24 Hour Vital Signs Date Time Temp Pulse Resp B/P (MAP) Pulse Ox O2 Delivery O2 Flow Rate FiO2 12/13/19 05:25 75 127/58 12/13/19 04:00 97.5 74 20 127/56 (79) 97 12/13/19 04:00 75 12/13/19 04:00 Nasal Cannula 3.0 12/13/19 00:00 Nasal Cannula 3.0 12/13/19 00:00 98.0 83 20 112/50 (70) 95 12/13/19 00:00 86 12/12/19 22:53 Nasal Cannula 3.0 12/12/19 21:25 85 110/62 12/12/19 21:00 74 18 94 Nasal Cannula 2.0 28 12/12/19 21:00 95 Nasal Cannula 2.0 28 12/12/19 21:00 87 17 98 Nasal Cannula 2.0 28 82 18 95 12/12/19 20:00 Nasal Cannula 3.0 12/12/19 20:00 98.0 85 20 109/62 (78) 97 12/12/19 20:00 81 12/12/19 16:00 Nasal Cannula 3.0 12/12/19 16:00 98.4 75 20 143/88 (106) 97 12/12/19 16:00 81 12/12/19 13:22 75 106/59 12/12/19 12:00 97.7 81 20 106/59 (75) 96 12/12/19 12:00 75 12/12/19 12:00 Nasal Cannula 3.0 I&O Intake and Output 12/12/19 12/13/19 19:00 07:00 Intake Total 910.0 ml Output Total 900 ml Balance -900 ml 910.0 ml IV Total 910.0 ml Output Urine Total 900 ml Cardiovascular: RSR Respiratory: clear, decreased breath sounds Abdomen: soft, present bowel sounds Extremities: no edema, no tenderness, no cyanosis Laboratory Tests Test 12/13/19 05:50 White Blood Count 7.3 K/UL (4.8-10.8) Red Blood Count 3.75 M/UL (4.70-6.10) L Hemoglobin 11.8 G/DL (14.2-18.0) L Hematocrit 33.9 % (42.0-52.0) L Mean Corpuscular Volume 90 FL (80-99) Mean Corpuscular Hemoglobin 31.5 PG (27.0-31.0) H Mean Corpuscular Hemoglobin Concent 34.9 G/DL (32.0-36.0) Red Cell Distribution Width 12.9 % (11.6-14.8) Platelet Count 163 K/UL (150-450) Mean Platelet Volume 7.9 FL (6.5-10.1) Neutrophils (%) (Auto) 65.4 % (45.0-75.0) Lymphocytes (%) (Auto) 23.3 % (20.0-45.0) Monocytes (%) (Auto) 7.6 % (1.0-10.0) Eosinophils (%) (Auto) 3.1 % (0.0-3.0) H Basophils (%) (Auto) 0.5 % (0.0-2.0) Sodium Level 139 MMOL/L (136-145) Potassium Level 3.2 MMOL/L (3.5-5.1) L Chloride Level 103 MMOL/L (98-107) Carbon Dioxide Level 30 MMOL/L (21-32) Anion Gap 7 mmol/L (5-15) Blood Urea Nitrogen 21 mg/dL (7-18) H Creatinine 1.6 MG/DL (0.55-1.30) H Estimat Glomerular Filtration Rate mL/min (>60) Glucose Level 173 MG/DL (74-106) H Uric Acid 2.3 MG/DL (2.6-7.2) L Calcium Level 7.9 MG/DL (8.5-10.1) L Phosphorus Level 2.7 MG/DL (2.5-4.9) Magnesium Level 1.5 MG/DL (1.8-2.4) L Total Bilirubin 10.2 MG/DL (0.2-1.0) H Direct Bilirubin 8.8 MG/DL (0.0-0.3) H Aspartate Amino Transf (AST/SGOT) 55 U/L (15-37) H Alanine Aminotransferase (ALT/SGPT) 33 U/L (12-78) Alkaline Phosphatase 255 U/L (46-116) H Total Protein 6.0 G/DL (6.4-8.2) L Albumin 1.4 G/DL (3.4-5.0) L Globulin 4.6 g/dL Albumin/Globulin Ratio 0.3 (1.0-2.7) L Plan Problems: (1) Sepsis Assessment & Plan: 89-year-old male with leukocytosis, fevers, tachycardia, abnormal labs. Abdominal ultrasound nondiagnostic MRCP unable to tolerate - eval for ERCP given condition appreciate GI input in discussion with GI likely believed to be related to hepatic insufficiency Continue IV antibiotics per infectious disease No acute surgical invention planned IV fluids Trend labs Resuscitation We will follow with recommendations Thank you for let me participate in patient's care (2) Biliary obstruction Assessment & Plan: Findings: The study was limited due to bowel gas body habitus. The liver is mildly heterogeneous with questionable surface nodularity. Doppler interrogation of the main portal vein shows patency with hepatopedal, monophasic flow. There is no biliary ductal dilatation identified. Gallbladder is grossly unremarkable. There demonstrated part of the pancreas, aorta and IVC show no obvious abnormalities. The structures are poorly seen. Both kidneys are poorly seen. There is no obvious hydronephrosis. IMPRESSION: No acute findings Very limited study Gallbladder is distended, but there are no gallstones and no wall thickening demonstrated. Negative for dilated bile ducts Equivocally mildly increased renal echogenicity, if real could indicate medical renal disease. Negative for evidence of hydronephrosis (3) Elevated LFTs Ajit Mcnulty Dec 13, 2019 11:02
[2019-12-13 12:00] VITALS: BP 116/61
--- NOTE | 2019-12-13 12:00 | NUR ---
NURSE NOTES: The patient is stable without acute distress or shortness of breath. Still agitated to insert NGT. Will try to insert NGT again as soon as the patient calms down. Oxygen therapy per order. Bilateral soft wrist restraints on and circulation and skin is intact. Will continue plan of care.
--- NOTE | 2019-12-13 12:04 | Infectious Diseases Prog Note ---
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, hypertension, Alzheimer dementia, acute renal failure, improving Hypernatremia Distended Gallbladder RECOMMENDATION: We will continue with Zosyn Will f/u CT scan of abdomen Subjective ROS Limited/Unobtainable: Yes Neurologic: Reports: confusion, other - on restraint Allergies: Coded Allergies: No Known Allergies (Unverified , 03/19/17) Objective Vital Signs Last 24 Hour Vital Signs Date Time Temp Pulse Resp B/P (MAP) Pulse Ox O2 Delivery O2 Flow Rate FiO2 12/13/19 05:25 75 127/58 12/13/19 04:00 97.5 74 20 127/56 (79) 97 12/13/19 04:00 75 12/13/19 04:00 Nasal Cannula 3.0 12/13/19 00:00 Nasal Cannula 3.0 12/13/19 00:00 98.0 83 20 112/50 (70) 95 12/13/19 00:00 86 12/12/19 22:53 Nasal Cannula 3.0 12/12/19 21:25 85 110/62 12/12/19 21:00 74 18 94 Nasal Cannula 2.0 28 12/12/19 21:00 95 Nasal Cannula 2.0 28 12/12/19 21:00 87 17 98 Nasal Cannula 2.0 28 82 18 95 12/12/19 20:00 Nasal Cannula 3.0 12/12/19 20:00 98.0 85 20 109/62 (78) 97 12/12/19 20:00 81 12/12/19 16:00 Nasal Cannula 3.0 12/12/19 16:00 98.4 75 20 143/88 (106) 97 12/12/19 16:00 81 12/12/19 13:22 75 106/59 Height (Feet): 5 Height (Inches): 6.00 Weight (Pounds): 159 General Appearance: no acute distress HEENT: mucous membranes moist Respiratory/Chest: lungs clear, other - oxygen by nasal cannula Cardiovascular: normal rate Abdomen: soft, non tender Extremities: other - edema of right hand Skin: other - icterus Neurologic/Psychiatric: other - opens eyes Laboratory Tests Test 12/13/19 05:50 White Blood Count 7.3 K/UL (4.8-10.8) Red Blood Count 3.75 M/UL (4.70-6.10) L Hemoglobin 11.8 G/DL (14.2-18.0) L Hematocrit 33.9 % (42.0-52.0) L Mean Corpuscular Volume 90 FL (80-99) Mean Corpuscular Hemoglobin 31.5 PG (27.0-31.0) H Mean Corpuscular Hemoglobin Concent 34.9 G/DL (32.0-36.0) Red Cell Distribution Width 12.9 % (11.6-14.8) Platelet Count 163 K/UL (150-450) Mean Platelet Volume 7.9 FL (6.5-10.1) Neutrophils (%) (Auto) 65.4 % (45.0-75.0) Lymphocytes (%) (Auto) 23.3 % (20.0-45.0) Monocytes (%) (Auto) 7.6 % (1.0-10.0) Eosinophils (%) (Auto) 3.1 % (0.0-3.0) H Basophils (%) (Auto) 0.5 % (0.0-2.0) Sodium Level 139 MMOL/L (136-145) Potassium Level 3.2 MMOL/L (3.5-5.1) L Chloride Level 103 MMOL/L (98-107) Carbon Dioxide Level 30 MMOL/L (21-32) Anion Gap 7 mmol/L (5-15) Blood Urea Nitrogen 21 mg/dL (7-18) H Creatinine 1.6 MG/DL (0.55-1.30) H Estimat Glomerular Filtration Rate mL/min (>60) Glucose Level 173 MG/DL (74-106) H Uric Acid 2.3 MG/DL (2.6-7.2) L Calcium Level 7.9 MG/DL (8.5-10.1) L Phosphorus Level 2.7 MG/DL (2.5-4.9) Magnesium Level 1.5 MG/DL (1.8-2.4) L Total Bilirubin 10.2 MG/DL (0.2-1.0) H Direct Bilirubin 8.8 MG/DL (0.0-0.3) H Aspartate Amino Transf (AST/SGOT) 55 U/L (15-37) H Alanine Aminotransferase (ALT/SGPT) 33 U/L (12-78) Alkaline Phosphatase 255 U/L (46-116) H Total Protein 6.0 G/DL (6.4-8.2) L Albumin 1.4 G/DL (3.4-5.0) L Globulin 4.6 g/dL Albumin/Globulin Ratio 0.3 (1.0-2.7) L Current Medications Medications (Trade) Dose Ordered Sig/Filemon Route PRN Reason Start Time Stop Time Status Last Admin Dose Admin Acetaminophen (Tylenol) 325 mg Q6H PRN ORAL Mild Pain/Temp > 100.5 12/11/19 03:30 01/06/20 09:29 Acetaminophen (Tylenol) 650 mg Q4H PRN RECTAL Mild Pain (Pain Scale 1-3) 12/11/19 04:15 01/09/20 00:14 Albuterol/ Ipratropium (Albuterol/ Ipratropium) 3 ml Q4H PRN HHN Shortness of Breath 12/12/19 21:45 12/17/19 21:44 12/12/19 22:06 Barium Sulfate (Readi-Cat 2) 450 ml NOW PRN ORAL Radiology Procedure 12/12/19 15:15 12/14/19 15:08 Dextrose 1,000 ml @ 100 mls/hr Q10H IV 12/11/19 02:45 01/08/20 08:29 12/13/19 04:54 Dextrose (Dextrose 50%) 25 ml Q30M PRN IV Hypoglycemia 12/11/19 03:15 01/05/20 11:44 Dextrose (Dextrose 50%) 50 ml Q30M PRN IV Hypoglycemia 12/11/19 03:15 01/05/20 11:44 Diltiazem HCl (Cardizem) 30 mg EVERY 8 HOURS ORAL 12/11/19 06:00 01/05/20 13:59 12/13/19 05:25 Docusate Sodium (Colace) 100 mg TID ORAL 12/11/19 09:00 01/05/20 17:59 12/13/19 09:23 Insulin Aspart (NovoLOG) BEFORE MEALS AND HS SUBQ 12/11/19 06:30 01/05/20 16:29 12/13/19 11:51 Magnesium Sulfate 100 ml @ 100 mls/hr Q1H IVPB 12/13/19 10:45 12/13/19 14:44 12/13/19 11:50 Pantoprazole (Protonix) 40 mg BID ORAL 12/11/19 09:00 01/05/20 14:44 12/13/19 09:24 Piperacillin Sod/ Tazobactam Sod 3.375 gm/Sodium Chloride 110 ml @ 27.5 mls/hr EVERY 8 HOURS IVPB 12/11/19 06:00 12/16/19 13:59 12/13/19 04:54 Potassium Chloride 100 ml @ 100 mls/hr Q1HR IVPB 12/13/19 10:00 12/13/19 12:59 12/13/19 11:50 Potassium Chloride (K-Dur) 40 meq TWICE A DAY ORAL 12/11/19 09:00 01/08/20 09:59 12/13/19 09:24 Quetiapine Fumarate (SEROqueL) 25 mg EVERY 6 HOURS PRN ORAL For Anxiety 12/11/19 03:00 01/09/20 02:59 Risperidone (RisperDAL) 0.5 mg Q12HR ORAL 12/11/19 09:00 01/05/20 08:59 12/13/19 09:24 Tamsulosin HCl (Flomax) 0.4 mg BEDTIME ORAL 12/11/19 21:00 01/05/20 20:59 12/12/19 21:26 Enrike Hadley MD Dec 13, 2019 12:04
--- NOTE | 2019-12-13 12:32 | NUR ---
CASE MANAGEMENT: REVIEW 12/11/2019 SI:SEPSIS WITH LACTIC ACIDEMIA . ACUTE ON CHRONIC RENAL FAILURE . HIGH BILIRUBIN . JAUNDICE . PNA . (+) VRE 98.2 109 20 153/93 94% ON NC 3L H/H 11.8/33.9 NA+147 CL-113 BUN 31 CREAT 1.7 BG 181 CA+8.3 T.HIPOLITO/D.HIPOLITO 9.7/7.8 AST 57 ALK-PHOS 208 BNP 899 MG 1.5 C-REC PROT. 20.1 IS:ZOSYN IV Q8H IV D5@100ML/HR MG SULFATE @100ML/HR X3 BAGS CARDIZEM PO Q8H SS INSULIN K-DUR PO BID PROTONIX PO BID FLOMAX QHS RISPERIDONE Q12H NEB TX Q4H PRN PLAN: GI CONSULT ~~~MRCP \: 2E TELE UNIT CASE MANAGEMENT: REVIEW 12/12/2019 SI:SEPSIS WITH LACTIC ACIDEMIA . ACUTE ON CHRONIC RENAL FAILURE . HIGH BILIRUBIN . JAUNDICE . PNA . (+) VRE 97.8 73 20 113/51 96% ON 3L NC H/H 11.4/34.1 PLT 135 K+3.0 CL-108 BUN 25 CREAT1.7 BG 187 CA+8.0 D.HIPOLITO/T.HIPOLITO 9.8/8.7 AMMONIA 40 AST 55 ALK-PHOS 227 IS:ZOSYN IV Q8H IV D5@100ML/HR KCL @100ML/HR X2 BAGS CARDIZEM PO Q8H SS INSULIN K-DUR PO BID PROTONIX PO BID FLOMAX QHS RISPERIDONE Q12H NEB TX Q4H PRN PLAN: X-RAY ABD \: 2E TELE UNIT CASE MANAGEMENT: REVIEW 12/13/2019 SI:SEPSIS WITH LACTIC ACIDEMIA . ACUTE ON CHRONIC RENAL FAILURE . HIGH BILIRUBIN . JAUNDICE . PNA . (+) VRE 96.8 77 20 114/54 95% ON 3L NC K+ 3.2 BUN 21 CREAT 1.6 BG 173 URIC ACID 2.3 CA+7.9 MG 1.5 T.HIPOLITO/D.HIPOLITO 10.2/8.8 AST 55 ALK-PHOS 255 IS:ZOSYN IV Q8H IV D5@100ML/HR MG SULFATE @100ML/HR X4 BAGS CARDIZEM PO Q8H SS INSULIN K-DUR PO BID PROTONIX PO BID FLOMAX QHS RISPERIDONE Q12H NEB TX Q4H PRN PLAN: CT ABD/PEL- D/T HIGH D.HIPOLITO AND T.HIPOLITO MONITOR OFF RESTRAINTS \: 2E TELE UNIT
--- NOTE | 2019-12-13 15:20 | NUR ---
NURSE NOTES: The patient is stable without acute distress or shortness of breath. Inserted new NGT and Dr. Escalante ordered stat abdominal x-ray for placement. After confirmation of placement, will start administering medication as prescribed, oral contrast, and feeding. Will continue plan of care.
[2019-12-13 16:00] VITALS: BP 118/64
--- NOTE | 2019-12-13 16:25 | Diagnostic Imaging Report ---
Indication: NG tube adjustment Comparison: 12/12/2019 Single view of the abdomen obtained Findings: NG tube was further advanced and is in good position. IMPRESSION: NG tube in satisfactory position
--- NOTE | 2019-12-13 17:00 | NUR ---
NURSE NOTES: The patient is stable without acute distress or shortness of breath. NGT in correct place and will confirm schedule for CT scan. Will continue plan of care.
--- NOTE | 2019-12-13 18:20 | NUR ---
NURSE NOTES: Tried to d/c restraints and trial made. The patient still agitated and pulling out the device. New order of bilateral soft wrist restraint obtained from Dr. Estrada. Will continue plan of care.
--- NOTE | 2019-12-13 18:35 | NUR ---
NURSE NOTES: The patient went down for CT of abdomen and pelvis without contrast with off tele order from Dr. Escalante. Will continue plan of care as soon as the patient comes back to the floor. Will continue plan of care.
--- NOTE | 2019-12-13 19:30 | NUR ---
HAND-OFF: Report given to JAMAICA Toro. The patient is resting on the bed without acute distress or shortness of breath after getting back from CT scan of abdomen and pelvis. The patient's bed in the lowest position, call light in reach, and fall and aspiration precaution reinforced. IV site intact and patent and running IVF per order. Oxygen therapy per order. NGT in right nare in correct place and resumed tube feeding per order. Bilateral soft wrist restraints on per order and circulation and skin is intact. Endorsed plan of care.
--- NOTE | 2019-12-13 19:31 | NUR ---
NURSE NOTES: Received pt from JAMAICA Hopper. Pt is awake and resting in bed in no acute distress, patient has weak cough. Oxygen therapy via nasal cannula on, HOB elevated to high fowlers position. Iv site intact and patent. Bilateral soft wrist restraints on with 2 fingers length space. Ng tube in place in right nare. Bed locked in lowest position, bed alarm on, call light within reach. Will continue with plan of care.
[2019-12-13 20:00] VITALS: BP 132/62
--- NOTE | 2019-12-13 20:45 | NUR ---
NURSE NOTES: Walked in to make hourly rounds, and patient found with ng tube removed and in hand. Attempted to place new ng tube but patient is too agitated and aggressive. Will attempt at a later time
[2019-12-13] MEDS: Tamsulosin 0.4mg cap ORAL SCH (21:00)
--- NOTE | 2019-12-13 21:50 | General Progress Note ---
Assessment/Plan Problem List: (1) Sepsis ICD Codes: A41.9 - Sepsis, unspecified organism SNOMED: 82364999 Qualifiers: Qualified Codes: A41.9 - Sepsis, unspecified organism; R65.20 - Severe sepsis without septic shock; N17.9 - Acute kidney failure, unspecified (2) Alzheimer's dementia ICD Codes: G30.9 - Alzheimer's disease, unspecified; F02.80 - Dementia in other diseases classified elsewhere without behavioral disturbance SNOMED: 96938919 Qualifiers: Qualified Codes: G30.9 - Alzheimer's disease, unspecified; F02.80 - Dementia in other diseases classified elsewhere without behavioral disturbance (3) Elevated LFTs ICD Codes: R94.5 - Abnormal results of liver function studies SNOMED: 587888033, 202067783 (4) Cholestasis ICD Codes: K83.1 - Obstruction of bile duct SNOMED: 46815591 (5) Hyperbilirubinemia ICD Codes: E80.6 - Other disorders of bilirubin metabolism SNOMED: 52238023 (6) Left lower lobe pneumonia ICD Codes: J18.9 - Pneumonia, unspecified organism SNOMED: 050254523 Qualifiers: Qualified Codes: J18.9 - Pneumonia, unspecified organism (7) Renal failure (ARF), acute on chronic ICD Codes: N17.9 - Acute kidney failure, unspecified; N18.9 - Chronic kidney disease, unspecified SNOMED: 583522824 Qualifiers: Qualified Codes: N17.9 - Acute kidney failure, unspecified; N18.3 - Chronic kidney disease, stage 3 (moderate) Status: progressing, unchanged Assessment/Plan: sepsis' cholestasis pna lethargic poor prognosis hypernatremia azotemia resp insuff peg per dr kuo dm.elevated sugar Subjective ROS Limited/Unobtainable: Yes Allergies: Coded Allergies: No Known Allergies (Unverified , 03/19/17) Objective Last 24 Hour Vital Signs Date Time Temp Pulse Resp B/P (MAP) Pulse Ox O2 Delivery O2 Flow Rate FiO2 12/13/19 20:17 96 Nasal Cannula 2.0 28 12/13/19 20:17 90 18 96 Nasal Cannula 2.0 28 12/13/19 16:00 97.7 60 20 118/64 (82) 96 12/13/19 16:00 75 12/13/19 16:00 Nasal Cannula 3.0 12/13/19 14:00 80 116/61 12/13/19 12:00 97.6 80 20 116/61 (79) 98 12/13/19 12:00 Nasal Cannula 3.0 12/13/19 12:00 76 12/13/19 08:00 73 12/13/19 08:00 Nasal Cannula 3.0 12/13/19 08:00 96.8 77 20 114/54 (74) 95 12/13/19 07:05 71 18 98 Nasal Cannula 2.0 28 12/13/19 07:05 98 Nasal Cannula 2.0 28 12/13/19 05:25 75 127/58 12/13/19 04:00 97.5 74 20 127/56 (79) 97 12/13/19 04:00 75 12/13/19 04:00 Nasal Cannula 3.0 12/13/19 00:00 Nasal Cannula 3.0 12/13/19 00:00 98.0 83 20 112/50 (70) 95 12/13/19 00:00 86 12/12/19 22:53 Nasal Cannula 3.0 Intake and Output 12/12/19 12/13/19 19:00 07:00 Intake Total 910.0 ml Output Total 900 ml Balance -900 ml 910.0 ml IV Total 910.0 ml Output Urine Total 900 ml Laboratory Tests 12/13/19 05:50: White Blood Count 7.3, Red Blood Count 3.75L, Hemoglobin 11.8L, Hematocrit 33.9L , Mean Corpuscular Volume 90, Mean Corpuscular Hemoglobin 31.5H, Mean Corpuscular Hemoglobin Concent 34.9, Red Cell Distribution Width 12.9, Platelet Count 163, Mean Platelet Volume 7.9, Neutrophils (%) (Auto) 65.4, Lymphocytes (% ) (Auto) 23.3, Monocytes (%) (Auto) 7.6, Eosinophils (%) (Auto) 3.1H, Basophils (%) (Auto) 0.5, Sodium Level 139, Potassium Level 3.2L, Chloride Level 103, Carbon Dioxide Level 30, Anion Gap 7, Blood Urea Nitrogen 21H, Creatinine 1.6H, Estimat Glomerular Filtration Rate , Glucose Level 173H, Uric Acid 2.3L, Calcium Level 7.9L, Phosphorus Level 2.7, Magnesium Level 1.5L, Total Bilirubin 10.2H, Direct Bilirubin 8.8H, Aspartate Amino Transf (AST/SGOT) 55H, Alanine Aminotransferase (ALT/SGPT) 33, Alkaline Phosphatase 255H, Total Protein 6.0L, Albumin 1.4L, Globulin 4.6, Albumin/Globulin Ratio 0.3L Height (Feet): 5 Height (Inches): 6.00 Weight (Pounds): 159 Neck: supple Cardiovascular: normal rate Respiratory/Chest: lungs clear Gurmeet Elizabeth MD Dec 13, 2019 21:50
[2019-12-14] VITALS: BP 120/74
--- NOTE | 2019-12-14 02:30 | Progress Note ---
DATE: 12/13/2019 SUBJECTIVE: The patient is in bed, calm, unable to answer questions. The patient is in bed. No acute distress noted. Less agitated. He continues to be on a soft restraint. MENTAL STATUS EXAMINATION: The patient is alert, confused, and disoriented. Mood is anxious. Affect is flat. Thought process, there is a paucity of thought content. Thought content, no suicidal or homicidal ideation. Cognition is impaired. Insight and judgment is impaired. ASSESSMENT: 1. Dementia, Alzheimer's type. 2. Acute toxic encephalopathy. PLAN: 1. Continue soft restraints. Continue Seroquel p.r.n. 2. Discussed with the nurse. Melly Estrada M.D. DR: TONIA JOB#: [id number] CC:
[2019-12-14 04:00] VITALS: BP 111/65
[2019-12-14] MEDS: dilTIAZem HCl 30mg tab ORAL SCH ×3 (06:00→21:43)
[2019-12-14] MEDS: Piperacillin/Tazobactam 3.375 GM in NS 110 ML IVPB SCH (06:00)
[2019-12-14] MEDS: NovoLOG Insulin Flexpen SUBQ SCH ×4 (06:30→21:00)
--- NOTE | 2019-12-14 06:58 | Hematology/Onc Progress Note ---
Assessment/Plan Assessment/Plan Assessment and Recs: # Thrombocytopenia -- is likely related to sepsis from pna, currently in 100- 150 range --> smear has been ordered and reviewed --> meds are noted --> okay to continue on abx --> plt trend 169-->148k-->141-->128-->135-->163 --> hold off steriods --> hep and hiv NEG --> us abd negative for cirrhosis/hsm # Leukocytosis due to pna/lactic acidosis --> as per above --> smear has been reviewed --> as per id, on vanc/zosyn-->zosyn --> wbc trend: 16.7 -->14.1-->10.8-->7 # Anemia of chronic disease --> in this case due to hemodilution --> hgb trend: 12.3-->11.8 # Hyperbilirubinemia --> gi aware as per their recs -> may need ercp/mrcp as per gi --> mri as needed # AMS --> as per psych, on soft wr # Dysphagia --> for peg # Cholestasis # Biliary obstruction # Elevated LFTs # PNA/Sepsis Appreciate consultation and will tasha Rn. Subjective Constitutional: Denies: no symptoms, chills, fever, malaise, weakness, other HEENT: Denies: no symptoms, eye pain, blurred vision, tearing, double vision, ear pain, ear discharge, nose pain, nose congestion, throat pain, throat swelling, mouth pain, mouth swelling, other Cardiovascular: Denies: no symptoms, chest pain, edema, irregular heart rate, lightheadedness, palpitations, syncope, other Gastrointestinal/Abdominal: Denies: no symptoms, abdomen distended, abdominal pain, black stools, tarry stools, blood in stool, constipated, diarrhea, difficulty swallowing, nausea, poor appetite, poor fluid intake, rectal bleeding , vomiting, other Neurologic/Psychiatric: Denies: no symptoms, anxiety, depressed, emotional problems, headache, numbness, paresthesia, pre-existing deficit, seizure, tingling, tremors, weakness, other Endocrine: Denies: no symptoms, excessive sweating, flushing, intolerance to cold, intolerance to heat, increased hunger, increased thirst, increased urine, unexplained weight gain, unexplained weight loss, other Hematologic/Lymphatic: Denies: no symptoms, anemia, easy bleeding, easy bruising, adenopathy, other Allergies: Coded Allergies: No Known Allergies (Unverified , 03/19/17) Subjective 12/08: awake, no acute events, wbc 16.7, afebrile, on abx, us abd negative 12/09: no acute distress, lft's worsening, wbc improving, nc 3l 12/10: labs noted, plt remains stable, is unable to have mri, no bleeding 12/12: bilat wrist restraints, wbc improved, remains on zosyn 12/13: on ngt feeds and also abx, with restraints, remains confused 12/14: remains on soft restraints, seen by psych, no bleedng noted, smear reviewed Objective Objective Current Medications Medications (Trade) Dose Ordered Sig/Filemon Route PRN Reason Start Time Stop Time Status Last Admin Dose Admin Acetaminophen (Tylenol) 325 mg Q6H PRN ORAL Mild Pain/Temp > 100.5 12/11/19 03:30 01/06/20 09:29 Acetaminophen (Tylenol) 650 mg Q4H PRN RECTAL Mild Pain (Pain Scale 1-3) 12/11/19 04:15 01/09/20 00:14 Albuterol/ Ipratropium (Albuterol/ Ipratropium) 3 ml Q4H PRN HHN Shortness of Breath 12/12/19 21:45 12/17/19 21:44 12/12/19 22:06 Barium Sulfate (Readi-Cat 2) 450 ml NOW PRN ORAL Radiology Procedure 12/12/19 15:15 12/14/19 15:08 Dextrose 1,000 ml @ 100 mls/hr Q10H IV 12/11/19 02:45 01/08/20 08:29 12/14/19 00:45 Dextrose (Dextrose 50%) 25 ml Q30M PRN IV Hypoglycemia 12/11/19 03:15 01/05/20 11:44 Dextrose (Dextrose 50%) 50 ml Q30M PRN IV Hypoglycemia 12/11/19 03:15 01/05/20 11:44 Diltiazem HCl (Cardizem) 30 mg EVERY 8 HOURS ORAL 12/11/19 06:00 01/05/20 13:59 12/13/19 05:25 Docusate Sodium (Colace) 100 mg TID ORAL 12/11/19 09:00 01/05/20 17:59 12/13/19 17:15 Insulin Aspart (NovoLOG) BEFORE MEALS AND HS SUBQ 12/11/19 06:30 01/05/20 16:29 12/13/19 17:13 Pantoprazole (Protonix) 40 mg BID ORAL 12/11/19 09:00 01/05/20 14:44 12/13/19 17:18 Piperacillin Sod/ Tazobactam Sod 3.375 gm/Sodium Chloride 110 ml @ 27.5 mls/hr EVERY 8 HOURS IVPB 12/11/19 06:00 12/16/19 13:59 12/14/19 06:00 Potassium Chloride (K-Dur) 40 meq TWICE A DAY ORAL 12/11/19 09:00 01/08/20 09:59 12/13/19 17:15 Quetiapine Fumarate (SEROqueL) 25 mg EVERY 6 HOURS PRN ORAL For Anxiety 12/11/19 03:00 01/09/20 02:59 Risperidone (RisperDAL) 0.5 mg Q12HR ORAL 12/11/19 09:00 01/05/20 08:59 12/13/19 09:24 Tamsulosin HCl (Flomax) 0.4 mg BEDTIME ORAL 12/11/19 21:00 01/05/20 20:59 12/12/19 21:26 Last 24 Hour Vital Signs Date Time Temp Pulse Resp B/P (MAP) Pulse Ox O2 Delivery O2 Flow Rate FiO2 12/14/19 04:00 70 12/14/19 04:00 96.8 70 16 111/65 (80) 98 12/14/19 00:00 97.3 70 18 120/74 (89) 95 12/14/19 00:00 70 12/13/19 20:17 96 Nasal Cannula 2.0 28 12/13/19 20:17 90 18 96 Nasal Cannula 2.0 28 12/13/19 20:00 73 12/13/19 20:00 97.2 73 16 132/62 (85) 94 12/13/19 16:00 97.7 60 20 118/64 (82) 96 12/13/19 16:00 75 12/13/19 16:00 Nasal Cannula 3.0 12/13/19 14:00 80 116/61 12/13/19 12:00 97.6 80 20 116/61 (79) 98 12/13/19 12:00 Nasal Cannula 3.0 12/13/19 12:00 76 12/13/19 08:00 73 12/13/19 08:00 Nasal Cannula 3.0 12/13/19 08:00 96.8 77 20 114/54 (74) 95 12/13/19 07:05 71 18 98 Nasal Cannula 2.0 28 12/13/19 07:05 98 Nasal Cannula 2.0 28 12/13/19 05:25 75 127/58 12/13/19 04:00 97.5 74 20 127/56 (79) 97 12/13/19 04:00 75 12/13/19 04:00 Nasal Cannula 3.0 12/13/19 00:00 Nasal Cannula 3.0 12/13/19 00:00 98.0 83 20 112/50 (70) 95 12/13/19 00:00 86 12/12/19 22:53 Nasal Cannula 3.0 12/12/19 21:25 85 110/62 12/12/19 21:00 74 18 94 Nasal Cannula 2.0 28 12/12/19 21:00 95 Nasal Cannula 2.0 28 12/12/19 21:00 87 17 98 Nasal Cannula 2.0 28 82 18 95 12/12/19 20:00 Nasal Cannula 3.0 12/12/19 20:00 98.0 85 20 109/62 (78) 97 12/12/19 20:00 81 12/12/19 16:00 Nasal Cannula 3.0 12/12/19 16:00 98.4 75 20 143/88 (106) 97 12/12/19 16:00 81 12/12/19 13:22 75 106/59 12/12/19 12:00 97.7 81 20 106/59 (75) 96 12/12/19 12:00 75 12/12/19 12:00 Nasal Cannula 3.0 12/12/19 08:00 73 12/12/19 08:00 97.8 73 20 113/51 (71) 96 12/12/19 08:00 Nasal Cannula 3.0 Intake and Output 12/13/19 12/14/19 19:00 07:00 Output Total 1800 ml Balance -1800 ml Output Urine Total 1800 ml # Bowel Movements 1 Labs Test 12/12/19 07:05 12/13/19 05:50 White Blood Count 7.0 K/UL (4.8-10.8) 7.3 K/UL (4.8-10.8) Red Blood Count 3.70 M/UL (4.70-6.10) 3.75 M/UL (4.70-6.10) Hemoglobin 11.4 G/DL (14.2-18.0) 11.8 G/DL (14.2-18.0) Hematocrit 34.1 % (42.0-52.0) 33.9 % (42.0-52.0) Mean Corpuscular Volume 92 FL (80-99) 90 FL (80-99) Mean Corpuscular Hemoglobin 30.9 PG (27.0-31.0) 31.5 PG (27.0-31.0) Mean Corpuscular Hemoglobin Concent 33.5 G/DL (32.0-36.0) 34.9 G/DL (32.0-36.0) Red Cell Distribution Width 13.1 % (11.6-14.8) 12.9 % (11.6-14.8) Platelet Count 135 K/UL (150-450) 163 K/UL (150-450) Mean Platelet Volume 6.9 FL (6.5-10.1) 7.9 FL (6.5-10.1) Neutrophils (%) (Auto) 72.7 % (45.0-75.0) 65.4 % (45.0-75.0) Lymphocytes (%) (Auto) 16.5 % (20.0-45.0) 23.3 % (20.0-45.0) Monocytes (%) (Auto) 6.7 % (1.0-10.0) 7.6 % (1.0-10.0) Eosinophils (%) (Auto) 3.6 % (0.0-3.0) 3.1 % (0.0-3.0) Basophils (%) (Auto) 0.4 % (0.0-2.0) 0.5 % (0.0-2.0) Erythrocyte Sedimentation Rate 76 MM/HR (0-20) Prothrombin Time 11.8 SEC (9.30-11.50) Prothromb Time International Ratio 1.1 (0.9-1.1) Sodium Level 143 MMOL/L (136-145) 139 MMOL/L (136-145) Potassium Level 3.0 MMOL/L (3.5-5.1) 3.2 MMOL/L (3.5-5.1) Chloride Level 108 MMOL/L (98-107) 103 MMOL/L (98-107) Carbon Dioxide Level 31 MMOL/L (21-32) 30 MMOL/L (21-32) Anion Gap 4 mmol/L (5-15) 7 mmol/L (5-15) Blood Urea Nitrogen 25 mg/dL (7-18) 21 mg/dL (7-18) Creatinine 1.7 MG/DL (0.55-1.30) 1.6 MG/DL (0.55-1.30) Estimat Glomerular Filtration Rate mL/min (>60) mL/min (>60) Glucose Level 187 MG/DL (74-106) 173 MG/DL (74-106) Calcium Level 8.0 MG/DL (8.5-10.1) 7.9 MG/DL (8.5-10.1) Total Bilirubin 9.8 MG/DL (0.2-1.0) 10.2 MG/DL (0.2-1.0) Direct Bilirubin 8.7 MG/DL (0.0-0.3) 8.8 MG/DL (0.0-0.3) Aspartate Amino Transf (AST/SGOT) 55 U/L (15-37) 55 U/L (15-37) Alanine Aminotransferase (ALT/SGPT) 34 U/L (12-78) 33 U/L (12-78) Alkaline Phosphatase 227 U/L (46-116) 255 U/L (46-116) Ammonia 40 umol/L (11-32) C-Reactive Protein, Quantitative 13.3 mg/dL (0.00-0.90) Total Protein 5.7 G/DL (6.4-8.2) 6.0 G/DL (6.4-8.2) Albumin 1.4 G/DL (3.4-5.0) 1.4 G/DL (3.4-5.0) Globulin 4.3 g/dL 4.6 g/dL Albumin/Globulin Ratio 0.3 (1.0-2.7) 0.3 (1.0-2.7) Amylase Level 59 U/L (25-115) Lipase 193 U/L (73-393) Uric Acid 2.3 MG/DL (2.6-7.2) Phosphorus Level 2.7 MG/DL (2.5-4.9) Magnesium Level 1.5 MG/DL (1.8-2.4) Height (Feet): 5 Height (Inches): 6.00 Weight (Pounds): 159 Objective Physical Exam Vitals: noted General: no apparent distress HEENT: supple Resp: normal breath sounds, no respiratory distress, NC+ Cardiovascular: normal rate Gastrointestinal: normal inspection, non tender, soft, normal bowel sounds, non -distended Skin: normal inspection, normal color, no rash, warm/dry, palpation normal, well hydrated Lymphatic: normal inspection, no adenopathy Damian Batres MD Dec 14, 2019 06:58
[2019-12-14 07:25] LABS: BASOPHILS % (AUTO) 0.5 % (0.0-2.0); EOSINOPHILS % (AUTO) 4.1 % (0.0-3.0); HEMATOCRIT 32.2 % (42.0-52.0); LYMPHOCYTES % (AUTO) 14.6 % (20.0-45.0); MEAN CORPUSCULAR VOLUME 91 FL (80-99); MONOCYTES % (AUTO) 8.3 % (1.0-10.0); NEUTROPHILS % (AUTO) 72.5 % (45.0-75.0); PLATELET COUNT 157 K/UL (150-450); RED BLOOD COUNT 3.53 M/UL (4.70-6.10); RED CELL DISTRIBUTION WIDTH 13.4 % (11.6-14.8); WHITE BLOOD COUNT 6.1 K/UL (4.8-10.8)
--- NOTE | 2019-12-14 07:30 | NUR ---
NURSE NOTES: Received report from JAMAICA Toro. The patient is resting on the bed but still agitated. The patient's bed in the lowest position, call light in reach, and fall and aspiration precaution reinforced. IV site intact and patent and running IVF per order. Oxygen therapy per order. Per slot shift manager nurse, the patient removed NGT during slot shift manager and was unable to insert another one due to the patient's agitation. Bilateral soft wrist restraints on per order and circulation and skin intact. Condom cath intact and draining well. Will continue plan of care.
[2019-12-14 08:00] VITALS: BP 118/69
[2019-12-14 08:38] LABS: ALANINE AMINOTRANSFERASE 36 U/L (12-78); ALBUMIN 1.4 G/DL (3.4-5.0); ALBUMIN/GLOBULIN RATIO 0.3 (1.0-2.7); ALKALINE PHOSPHATASE 251 U/L (46-116); ANION GAP 4 mmol/L (5-15); ASPARTATE AMINO TRANSFERASE 57 U/L (15-37); BILIRUBIN,TOTAL 8.8 MG/DL (0.2-1.0); BLOOD UREA NITROGEN 13 mg/dL (7-18); CALCIUM 8.5 MG/DL (8.5-10.1); CARBON DIOXIDE 30 MMOL/L (21-32); CHLORIDE 101 MMOL/L (98-107); CREATININE 1.4 MG/DL (0.55-1.30); POTASSIUM 3.2 MMOL/L (3.5-5.1); SODIUM 135 MMOL/L (136-145)
[2019-12-14 08:39] LABS: BILIRUBIN,DIRECT 7.7 MG/DL (0.0-0.3)
[2019-12-14] MEDS: Docusate 100mg cap ORAL SCH ×3 (09:00→17:39)
--- NOTE | 2019-12-14 09:00 | NUR ---
NURSE NOTES: Notified Dr. Ashraf regarding abnormal lab including potassium level. No new order yet. Will continue plan of care.
--- NOTE | 2019-12-14 09:02 | Cardiac Electrophysiology PN ---
Assessment/Plan Assessment/Plan 1. Hypertension. On Cardizem 30 mg every 8 hours via NG tube. Echo Nl EF 2. Shortness of breath secondary to pneumonia. 3. Nonsustained VT 5 beats. K was replaced. Nl EF 4. Pneumonia, on Abx per Dr. Barth. 5. Renal failure. 6. Lactic acidosis. 7. Hyperbilirubinemia with total bilirubin of >10. Fu Dr Escalante MRI abdomen couldn't be done as unable to lay flat S/P CT abdomen and Pelvis. FU Dr Escalante 8. Renal failure with BUN of 35 and creatinine of 2.0. 9. Dysphagia. Passed swallow eval. BUT NGT feeding due to AMS May need PEG 10. Dementia. DW RN Subjective Subjective In SR. Confused in restraints. Passed swallow eval but for AMS. NGT feeding going on. No more VT S/P CT abdomen and Pelvis for high bilirubin last night. Dr Escalante following Objective Last 24 Hour Vital Signs Date Time Temp Pulse Resp B/P (MAP) Pulse Ox O2 Delivery O2 Flow Rate FiO2 12/14/19 04:00 70 12/14/19 04:00 96.8 70 16 111/65 (80) 98 12/14/19 00:00 97.3 70 18 120/74 (89) 95 12/14/19 00:00 70 12/13/19 20:17 96 Nasal Cannula 2.0 28 12/13/19 20:17 90 18 96 Nasal Cannula 2.0 28 12/13/19 20:00 73 12/13/19 20:00 97.2 73 16 132/62 (85) 94 12/13/19 16:00 97.7 60 20 118/64 (82) 96 12/13/19 16:00 75 12/13/19 16:00 Nasal Cannula 3.0 12/13/19 14:00 80 116/61 12/13/19 12:00 97.6 80 20 116/61 (79) 98 12/13/19 12:00 Nasal Cannula 3.0 12/13/19 12:00 76 Intake and Output 12/13/19 12/14/19 19:00 07:00 Output Total 1800 ml 900 ml Balance -1800 ml -900 ml Output Urine Total 1800 ml 900 ml # Bowel Movements 1 Laboratory Tests Test 12/14/19 06:27 White Blood Count 6.1 K/UL (4.8-10.8) Red Blood Count 3.53 M/UL (4.70-6.10) L Hemoglobin 11.0 G/DL (14.2-18.0) L Hematocrit 32.2 % (42.0-52.0) L Mean Corpuscular Volume 91 FL (80-99) Mean Corpuscular Hemoglobin 31.2 PG (27.0-31.0) H Mean Corpuscular Hemoglobin Concent 34.2 G/DL (32.0-36.0) Red Cell Distribution Width 13.4 % (11.6-14.8) Platelet Count 157 K/UL (150-450) Mean Platelet Volume 7.5 FL (6.5-10.1) Neutrophils (%) (Auto) 72.5 % (45.0-75.0) Lymphocytes (%) (Auto) 14.6 % (20.0-45.0) L Monocytes (%) (Auto) 8.3 % (1.0-10.0) Eosinophils (%) (Auto) 4.1 % (0.0-3.0) H Basophils (%) (Auto) 0.5 % (0.0-2.0) Sodium Level 135 MMOL/L (136-145) L Potassium Level 3.2 MMOL/L (3.5-5.1) L Chloride Level 101 MMOL/L (98-107) Carbon Dioxide Level 30 MMOL/L (21-32) Anion Gap 4 mmol/L (5-15) L Blood Urea Nitrogen 13 mg/dL (7-18) Creatinine 1.4 MG/DL (0.55-1.30) H Estimat Glomerular Filtration Rate mL/min (>60) Glucose Level 150 MG/DL (74-106) H Calcium Level 8.5 MG/DL (8.5-10.1) Total Bilirubin 8.8 MG/DL (0.2-1.0) H Direct Bilirubin 7.7 MG/DL (0.0-0.3) H Aspartate Amino Transf (AST/SGOT) 57 U/L (15-37) H Alanine Aminotransferase (ALT/SGPT) 36 U/L (12-78) Alkaline Phosphatase 251 U/L (46-116) H Total Protein 6.0 G/DL (6.4-8.2) L Albumin 1.4 G/DL (3.4-5.0) L Globulin 4.6 g/dL Albumin/Globulin Ratio 0.3 (1.0-2.7) L Objective HEAD AND NECK: Shows no JVD.Sclera icteric. NG tube is in LUNGS: Decreased breath sounds. CARDIOVASCULAR: Shows regular S1 and S2 with no gallop. ABDOMEN: Soft. EXTREMITIES: No pitting edema. Kyle Reynoso MD Dec 14, 2019 09:02
--- NOTE | 2019-12-14 09:02 | General Progress Note ---
Assessment/Plan Status: progressing, unchanged Assessment/Plan: Problems: (1) Elevated LFTs ICD Codes: R94.5 - Abnormal results of liver function studies SNOMED: 047121350, 458998697 (2) Biliary obstruction ICD Codes: K83.1 - Obstruction of bile duct SNOMED: 996802868 (3) Cholestasis ICD Codes: K83.1 - Obstruction of bile duct SNOMED: 54440258 (4) Hyperbilirubinemia ICD Codes: E80.6 - Other disorders of bilirubin metabolism Assessment/Plan This is a 89-year-old male patient that presented with hyperbilirubinemia with no transaminitis 2/2 to cholestasis possibly due to meds Vs sepsis now stable and trending down abdominal US reviewed hepatitis panel negative repeat labs neg hepatitis panel Avoid hepatotoxic's Repeat liver function test for tomorrow replace NGT and resume NGTF will d/w the family for possible PEG fu CT results We will follow along on a daily basis with any additional recommendations Subjective ROS Limited/Unobtainable: No Allergies: Coded Allergies: No Known Allergies (Unverified , 03/19/17) Objective Last 24 Hour Vital Signs Date Time Temp Pulse Resp B/P (MAP) Pulse Ox O2 Delivery O2 Flow Rate FiO2 12/14/19 04:00 70 12/14/19 04:00 96.8 70 16 111/65 (80) 98 12/14/19 00:00 97.3 70 18 120/74 (89) 95 12/14/19 00:00 70 12/13/19 20:17 96 Nasal Cannula 2.0 28 12/13/19 20:17 90 18 96 Nasal Cannula 2.0 28 12/13/19 20:00 73 12/13/19 20:00 97.2 73 16 132/62 (85) 94 12/13/19 16:00 97.7 60 20 118/64 (82) 96 12/13/19 16:00 75 12/13/19 16:00 Nasal Cannula 3.0 12/13/19 14:00 80 116/61 12/13/19 12:00 97.6 80 20 116/61 (79) 98 12/13/19 12:00 Nasal Cannula 3.0 12/13/19 12:00 76 Intake and Output 12/13/19 12/14/19 19:00 07:00 Output Total 1800 ml 900 ml Balance -1800 ml -900 ml Output Urine Total 1800 ml 900 ml # Bowel Movements 1 Laboratory Tests 12/14/19 06:27: White Blood Count 6.1, Red Blood Count 3.53L, Hemoglobin 11.0L, Hematocrit 32.2L , Mean Corpuscular Volume 91, Mean Corpuscular Hemoglobin 31.2H, Mean Corpuscular Hemoglobin Concent 34.2, Red Cell Distribution Width 13.4, Platelet Count 157, Mean Platelet Volume 7.5, Neutrophils (%) (Auto) 72.5, Lymphocytes (% ) (Auto) 14.6L, Monocytes (%) (Auto) 8.3, Eosinophils (%) (Auto) 4.1H, Basophils (%) (Auto) 0.5, Sodium Level 135L, Potassium Level 3.2L, Chloride Level 101, Carbon Dioxide Level 30, Anion Gap 4L, Blood Urea Nitrogen 13, Creatinine 1.4H, Estimat Glomerular Filtration Rate , Glucose Level 150H, Calcium Level 8.5, Total Bilirubin 8.8H, Direct Bilirubin 7.7H, Aspartate Amino Transf (AST/SGOT) 57H, Alanine Aminotransferase (ALT/SGPT) 36, Alkaline Phosphatase 251H, Total Protein 6.0L, Albumin 1.4L, Globulin 4.6, Albumin/ Globulin Ratio 0.3L Height (Feet): 5 Height (Inches): 6.00 Weight (Pounds): 159 General Appearance: lethargic EENT: normal ENT inspection, scleral icterus Neck: supple Cardiovascular: normal rate Respiratory/Chest: decreased breath sounds Abdomen: normal bowel sounds, non tender, soft Extremities: non-tender Bladimir Escalante MD Dec 14, 2019 09:02
--- NOTE | 2019-12-14 09:30 | NUR ---
NURSE NOTES: Dr. Escalante at the bedside assessed the patient. Notified Dr. Escalante regarding abnormal lab including total and direct bilirubin and AST. Also notified Dr. Escalante regarding generalized jaundice and pulling out of NGT. Per Dr. Escalante, he will talk to family member for possible additional test and PEG placement. Will wait for order. Will continue plan of care.
--- NOTE | 2019-12-14 09:39 | Diagnostic Imaging Report ---
INDICATION: Abdominal pain TECHNIQUE: Continuous helical transaxial imaging of the abdomen and pelvis was obtained from the lung bases to the pubic symphysis. No intravenous contrast was administered. Coronal 2-D reformats were also obtained. Automatic Exposure Control was utilized. Total Dose length Product (DLP): 1546.[address] Dose Index Volume (CTDIvol): 24.6 mGy Comparison: 07/14/2017 FINDINGS: Lungs: Pneumonia versus atelectasis demonstrated at the right lung base. Correlate clinically. Minimal atelectasis noted at both lung bases as well.. Liver: Unremarkable Gallbladder/biliary system: Gallbladder is abnormal. Gallbladder wall is thickened. There is pericholecystic stranding and ill-definition of the gallbladder wall. Findings concerning for cholecystitis. No obvious stones are seen on this exam within the gallbladder. There is no biliary duct dilatation identified. There is interposition of the hepatic flexure which resides between the diaphragm and the anterior part of the liver. There are small perihepatic nodes present.. Spleen: Spleen is normal in size. There is a small amount of perisplenic fluid present. Pancreas: Unremarkable Kidneys: No definite stone or hydronephrosis are identified.. Adrenal glands: Unremarkable Bowel: Bowel gas pattern is nonobstructive. The appendix is normal. There is diffuse underdistention of the colon. Bladder: There is mild thickening of the wall the urinary bladder. The bladder is relatively nondistended. Mild cystitis not excluded. Aorta/IVC: Aorta is tortuous. There are aortoiliac calcifications present consistent with atherosclerotic disease. Peritoneum: Trace free fluid demonstrated within the pelvis as well as surrounding the spleen.. Bones: There is narrowing of intervertebral discs and accompanying endplate osteophyte formation. Hypertrophied facet joints also demonstrated. There is a left dynamic hip screw present. Bones are diffusely osteopenic. IMPRESSION: Suspected acute cholecystitis with wall thickening and ill-definition slight dilatation of the gallbladder. No obvious gallstones seen on this examination. Trace ascites with fluid surrounding the spleen and within the pelvis. Right basilar pneumonia versus atelectasis. Query mild cystitis. Atherosclerotic vascular disease. Osteoporosis. Status post left dynamic hip screw. Moderate degenerative changes of the spine. Note: Evaluation of solid organs is limited on non contrast imaging. The CT scanner at [facility] is accredited by the [employer] and the scans are performed using dose optimization techniques as appropriate to a performed exam including Automatic Exposure control.
--- NOTE | 2019-12-14 09:50 | NUR ---
NURSE NOTES: Notified Dr. Escalante regarding CT of abdomen and pelvis result w/o contrast. Per Dr. Escalante, keep the patient on NPO except ice chips and medication via PO route till 12/15/2019 for EGD, ultrasound, and possible PEG placement. The patient is stable without acute distress or shortness of breath. Will continue plan of care.
--- NOTE | 2019-12-14 10:06 | Pulmonology Progress Note ---
Assessment/Plan Assessment/Plan IMPRESSION: 1. Left lower lobe pneumonia. Reviewed CXR with radiology; no definite pneumonia seen. 2. Sepsis with lactic acidemia. 3. Acute renal insufficiency. 4. History of CHF. 5. Dementia. 6. Jaundice; has intra-abdominal/biliary issue; GI and surgery following DISCUSSION: Continue antibiotics. I will follow carefully as respiratory loan consultant. GI/surgery following. Currently saturating well on low flow O2 Kevin Lincoln M.D. Subjective Interval Events: NPO this Am for GI procedures Constitutional: Reports: no symptoms HEENT: Repors: no symptoms Respiratory: Reports: no symptoms Cardiovascular: Reports: no symptoms Gastrointestinal/Abdominal: Reports: no symptoms Genitourinary: Reports: no symptoms Allergies: Coded Allergies: No Known Allergies (Unverified , 03/19/17) Objective Last 24 Hour Vital Signs Date Time Temp Pulse Resp B/P (MAP) Pulse Ox O2 Delivery O2 Flow Rate FiO2 12/14/19 09:29 74 20 97 Nasal Cannula 3.0 32 12/14/19 09:29 97 Nasal Cannula 2.0 28 12/14/19 04:00 70 12/14/19 04:00 96.8 70 16 111/65 (80) 98 12/14/19 00:00 97.3 70 18 120/74 (89) 95 12/14/19 00:00 70 12/13/19 20:17 96 Nasal Cannula 2.0 28 12/13/19 20:17 90 18 96 Nasal Cannula 2.0 28 12/13/19 20:00 73 12/13/19 20:00 97.2 73 16 132/62 (85) 94 12/13/19 16:00 97.7 60 20 118/64 (82) 96 12/13/19 16:00 75 12/13/19 16:00 Nasal Cannula 3.0 12/13/19 14:00 80 116/61 12/13/19 12:00 97.6 80 20 116/61 (79) 98 12/13/19 12:00 Nasal Cannula 3.0 12/13/19 12:00 76 Intake and Output 12/13/19 12/14/19 19:00 07:00 Output Total 1800 ml 900 ml Balance -1800 ml -900 ml Output Urine Total 1800 ml 900 ml # Bowel Movements 1 General Appearance: no acute distress HEENT: normocephalic Respiratory/Chest: chest wall non-tender, lungs clear Cardiovascular: normal peripheral pulses Abdomen: normal bowel sounds Laboratory Tests 12/14/19 06:27: White Blood Count 6.1, Red Blood Count 3.53L, Hemoglobin 11.0L, Hematocrit 32.2L , Mean Corpuscular Volume 91, Mean Corpuscular Hemoglobin 31.2H, Mean Corpuscular Hemoglobin Concent 34.2, Red Cell Distribution Width 13.4, Platelet Count 157, Mean Platelet Volume 7.5, Neutrophils (%) (Auto) 72.5, Lymphocytes (% ) (Auto) 14.6L, Monocytes (%) (Auto) 8.3, Eosinophils (%) (Auto) 4.1H, Basophils (%) (Auto) 0.5, Sodium Level 135L, Potassium Level 3.2L, Chloride Level 101, Carbon Dioxide Level 30, Anion Gap 4L, Blood Urea Nitrogen 13, Creatinine 1.4H, Estimat Glomerular Filtration Rate , Glucose Level 150H, Calcium Level 8.5, Total Bilirubin 8.8H, Direct Bilirubin 7.7H, Aspartate Amino Transf (AST/SGOT) 57H, Alanine Aminotransferase (ALT/SGPT) 36, Alkaline Phosphatase 251H, Total Protein 6.0L, Albumin 1.4L, Globulin 4.6, Albumin/ Globulin Ratio 0.3L Current Medications Medications (Trade) Dose Ordered Sig/Filemon Route PRN Reason Start Time Stop Time Status Last Admin Dose Admin Acetaminophen (Tylenol) 325 mg Q6H PRN ORAL Mild Pain/Temp > 100.5 12/11/19 03:30 01/06/20 09:29 Acetaminophen (Tylenol) 650 mg Q4H PRN RECTAL Mild Pain (Pain Scale 1-3) 12/11/19 04:15 01/09/20 00:14 Albuterol/ Ipratropium (Albuterol/ Ipratropium) 3 ml Q4H PRN HHN Shortness of Breath 12/12/19 21:45 12/17/19 21:44 12/12/19 22:06 Barium Sulfate (Readi-Cat 2) 450 ml NOW PRN ORAL Radiology Procedure 12/12/19 15:15 12/14/19 15:08 Dextrose 1,000 ml @ 100 mls/hr Q10H IV 12/11/19 02:45 01/08/20 08:29 12/14/19 00:45 Dextrose (Dextrose 50%) 25 ml Q30M PRN IV Hypoglycemia 12/11/19 03:15 01/05/20 11:44 Dextrose (Dextrose 50%) 50 ml Q30M PRN IV Hypoglycemia 12/11/19 03:15 01/05/20 11:44 Diltiazem HCl (Cardizem) 30 mg EVERY 8 HOURS ORAL 12/11/19 06:00 01/05/20 13:59 12/13/19 05:25 Docusate Sodium (Colace) 100 mg TID ORAL 12/11/19 09:00 01/05/20 17:59 12/13/19 17:15 Insulin Aspart (NovoLOG) BEFORE MEALS AND HS SUBQ 12/11/19 06:30 01/05/20 16:29 12/13/19 17:13 Pantoprazole (Protonix) 40 mg BID ORAL 12/11/19 09:00 01/05/20 14:44 12/13/19 17:18 Piperacillin Sod/ Tazobactam Sod 3.375 gm/Sodium Chloride 110 ml @ 27.5 mls/hr EVERY 8 HOURS IVPB 12/11/19 06:00 12/16/19 13:59 12/14/19 06:00 Potassium Chloride (K-Dur) 40 meq TWICE A DAY ORAL 12/11/19 09:00 01/08/20 09:59 12/13/19 17:15 Quetiapine Fumarate (SEROqueL) 25 mg EVERY 6 HOURS PRN ORAL For Anxiety 12/11/19 03:00 01/09/20 02:59 Risperidone (RisperDAL) 0.5 mg Q12HR ORAL 12/11/19 09:00 01/05/20 08:59 12/13/19 09:24 Tamsulosin HCl (Flomax) 0.4 mg BEDTIME ORAL 12/11/19 21:00 01/05/20 20:59 12/12/19 21:26 Kevin Lincoln MD Dec 14, 2019 10:06
--- NOTE | 2019-12-14 10:20 | Infectious Diseases Prog Note ---
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, hypertension, Alzheimer dementia, acute renal failure, improving Hypernatremia Acalculous cholecystitis Atelectasis/ Pneumonia RECOMMENDATION: Change Zosyn to Meropenem Will f/u CT scan of abdomen Subjective ROS Limited/Unobtainable: Yes Neurologic: Reports: confusion, other - on restraint Allergies: Coded Allergies: No Known Allergies (Unverified , 03/19/17) Objective Vital Signs Last 24 Hour Vital Signs Date Time Temp Pulse Resp B/P (MAP) Pulse Ox O2 Delivery O2 Flow Rate FiO2 12/14/19 09:29 74 20 97 Nasal Cannula 3.0 32 12/14/19 09:29 97 Nasal Cannula 2.0 28 12/14/19 04:00 70 12/14/19 04:00 96.8 70 16 111/65 (80) 98 12/14/19 00:00 97.3 70 18 120/74 (89) 95 12/14/19 00:00 70 12/13/19 20:17 96 Nasal Cannula 2.0 28 12/13/19 20:17 90 18 96 Nasal Cannula 2.0 28 12/13/19 20:00 73 12/13/19 20:00 97.2 73 16 132/62 (85) 94 12/13/19 16:00 97.7 60 20 118/64 (82) 96 12/13/19 16:00 75 12/13/19 16:00 Nasal Cannula 3.0 12/13/19 14:00 80 116/61 12/13/19 12:00 97.6 80 20 116/61 (79) 98 12/13/19 12:00 Nasal Cannula 3.0 12/13/19 12:00 76 Height (Feet): 5 Height (Inches): 6.00 Weight (Pounds): 159 General Appearance: no acute distress HEENT: mucous membranes moist Respiratory/Chest: lungs clear Cardiovascular: normal rate Abdomen: soft, non tender Extremities: other - hands edema Skin: other - icterus Neurologic/Psychiatric: alert, disoriented Laboratory Tests Test 12/14/19 06:27 White Blood Count 6.1 K/UL (4.8-10.8) Red Blood Count 3.53 M/UL (4.70-6.10) L Hemoglobin 11.0 G/DL (14.2-18.0) L Hematocrit 32.2 % (42.0-52.0) L Mean Corpuscular Volume 91 FL (80-99) Mean Corpuscular Hemoglobin 31.2 PG (27.0-31.0) H Mean Corpuscular Hemoglobin Concent 34.2 G/DL (32.0-36.0) Red Cell Distribution Width 13.4 % (11.6-14.8) Platelet Count 157 K/UL (150-450) Mean Platelet Volume 7.5 FL (6.5-10.1) Neutrophils (%) (Auto) 72.5 % (45.0-75.0) Lymphocytes (%) (Auto) 14.6 % (20.0-45.0) L Monocytes (%) (Auto) 8.3 % (1.0-10.0) Eosinophils (%) (Auto) 4.1 % (0.0-3.0) H Basophils (%) (Auto) 0.5 % (0.0-2.0) Sodium Level 135 MMOL/L (136-145) L Potassium Level 3.2 MMOL/L (3.5-5.1) L Chloride Level 101 MMOL/L (98-107) Carbon Dioxide Level 30 MMOL/L (21-32) Anion Gap 4 mmol/L (5-15) L Blood Urea Nitrogen 13 mg/dL (7-18) Creatinine 1.4 MG/DL (0.55-1.30) H Estimat Glomerular Filtration Rate mL/min (>60) Glucose Level 150 MG/DL (74-106) H Calcium Level 8.5 MG/DL (8.5-10.1) Total Bilirubin 8.8 MG/DL (0.2-1.0) H Direct Bilirubin 7.7 MG/DL (0.0-0.3) H Aspartate Amino Transf (AST/SGOT) 57 U/L (15-37) H Alanine Aminotransferase (ALT/SGPT) 36 U/L (12-78) Alkaline Phosphatase 251 U/L (46-116) H Total Protein 6.0 G/DL (6.4-8.2) L Albumin 1.4 G/DL (3.4-5.0) L Globulin 4.6 g/dL Albumin/Globulin Ratio 0.3 (1.0-2.7) L Current Medications Medications (Trade) Dose Ordered Sig/Filemon Route PRN Reason Start Time Stop Time Status Last Admin Dose Admin Acetaminophen (Tylenol) 325 mg Q6H PRN ORAL Mild Pain/Temp > 100.5 12/11/19 03:30 01/06/20 09:29 Acetaminophen (Tylenol) 650 mg Q4H PRN RECTAL Mild Pain (Pain Scale 1-3) 12/11/19 04:15 01/09/20 00:14 Albuterol/ Ipratropium (Albuterol/ Ipratropium) 3 ml Q4H PRN HHN Shortness of Breath 12/12/19 21:45 12/17/19 21:44 12/12/19 22:06 Barium Sulfate (Readi-Cat 2) 450 ml NOW PRN ORAL Radiology Procedure 12/12/19 15:15 12/14/19 15:08 Dextrose 1,000 ml @ 100 mls/hr Q10H IV 12/11/19 02:45 01/08/20 08:29 12/14/19 10:09 Dextrose (Dextrose 50%) 25 ml Q30M PRN IV Hypoglycemia 12/11/19 03:15 01/05/20 11:44 Dextrose (Dextrose 50%) 50 ml Q30M PRN IV Hypoglycemia 12/11/19 03:15 01/05/20 11:44 Diltiazem HCl (Cardizem) 30 mg EVERY 8 HOURS ORAL 12/11/19 06:00 01/05/20 13:59 12/13/19 05:25 Docusate Sodium (Colace) 100 mg TID ORAL 12/11/19 09:00 01/05/20 17:59 12/13/19 17:15 Insulin Aspart (NovoLOG) BEFORE MEALS AND HS SUBQ 12/11/19 06:30 01/05/20 16:29 12/13/19 17:13 Pantoprazole (Protonix) 40 mg BID ORAL 12/11/19 09:00 01/05/20 14:44 12/13/19 17:18 Piperacillin Sod/ Tazobactam Sod 3.375 gm/Sodium Chloride 110 ml @ 27.5 mls/hr EVERY 8 HOURS IVPB 12/11/19 06:00 12/16/19 13:59 12/14/19 06:00 Potassium Chloride (K-Dur) 40 meq TWICE A DAY ORAL 12/11/19 09:00 01/08/20 09:59 12/13/19 17:15 Quetiapine Fumarate (SEROqueL) 25 mg EVERY 6 HOURS PRN ORAL For Anxiety 12/11/19 03:00 01/09/20 02:59 Risperidone (RisperDAL) 0.5 mg Q12HR ORAL 12/11/19 09:00 01/05/20 08:59 12/13/19 09:24 Tamsulosin HCl (Flomax) 0.4 mg BEDTIME ORAL 12/11/19 21:00 01/05/20 20:59 12/12/19 21:26 Enrike Hadley MD Dec 14, 2019 10:20
[2019-12-14] MEDS: Meropenem 1 GM in NS 55 ML IVPB SCH ×2 (11:10→21:00)
--- NOTE | 2019-12-14 11:40 | NUR ---
CASE MANAGEMENT: REVIEW 12/13/2019 SI:SEPSIS WITH LACTIC ACIDEMIA . ACUTE ON CHRONIC RENAL FAILURE . HIGH BILIRUBIN . JAUNDICE . PNA . (+) VRE 96.8 70 16 111/65 98% NC 2L T.HIPOLITO/D.HIPOLITO 8.8/7.7 NA+ 135 K+ 3.2 ANION GAP 4 CREAT 1.4 BG 150 AST 57 ALK-PHOS 251 IS:IV MEROPENEM BID IVF D5@100ML/HR ALBUTEROL Q4HR/PRN NOVOLOG SQ AC&HS CARDIZEM PO Q8H PLAN: EGD WITH PEG PLACEMENT -TODAY CT PELIC/ABD - TRACE ASCITES FLUID SURROUNDING SPLEEN CT ABD/PEL- D/T HIGH D.HIPOLITO AND T.HIPOLITO MONITOR OFF RESTRAINTS \: 2E TELE UNIT Addendum: 12/15/19 at 1308 by MARCELO ROCKWELL LVN 12/14/19
[2019-12-14 12:00] VITALS: BP 122/73
--- NOTE | 2019-12-14 12:19 | NUR ---
RD ASSESSMENT & RECOMMENDATIONS SEE CARE ACTIVITY FOR COMPLETE ASSESSMENT DAILY ESTIMATED NEEDS: Needs based on DM, cardiac, wound 67 kg adj 25-30 kcals/kg total kcals 1.25-1.5 g protein/kg 83-100 g total protein 20-25 mL/kg total fluid mLs NUTRITION DIAGNOSIS: * Swallowing difficulty R/T dysphagia as evidenced by pt on liquify pureed, NTL, pt appears to be high risk for aspiration even on the lowest dysphagia diet, s/p insertion and self pulling out NGT, now pending possible PEG placement. * Altered nutrition related lab values r/t diabetes, clinical condition as evidenced by elev BGs (150 173), A1C of 7.2, low phos (2.0 -> wnl), low K (3.2), low mag (1.5), elev T bili (5.7 ->9.1-> 8.8). CURRENT TF:Glucerna 1.5 @ 20ml/hr x 24 hrs -> HELD, NGT pulled out, possible PEG placement tomorrow ENTERAL NUTRITION RECOMMENDATIONS: Glucerna 1.5 @ 50ml/hr x 24 hrs to provide 1200ml, 1800kcal, 99g prot, 911ml free water * W/ GI access, initiate Glucerna 1.5 @ 20ml/hr x 6 hrs * Advance 10ml q 4-6 hrs as tolerated to goal rate * HOB over 30 degrees/ water flush per MD. ADDITIONAL RECOMMENDATIONS: * Calibrated bed scale wt (bedscale 180lbs vs EMR wt 159lbs) * Monitor BGs closely w/ TF, need for long acting insulin * Monitor lytes closely, replete as needed (low K and mag) * Monitor for possible PEG placement- TF rec as above * Rec to adjust IVF: on D5 IVF at this time, Na low * Wound healing: Efren 1pkt BID w/ TF
--- NOTE | 2019-12-14 13:00 | NUR ---
ST NOTES: WEEKLY SWALLOW THERAPY SUMMMARY: PATIENT SEEN FOR DYSPHAGIA, PULLED OUT NGT YESTERDAY AND NPO TODAY FOR EGD. NOT ABLE TO HAVE MOD BARIUM SWALLOW STUDY (MBSS) TO DATE. GOALS MET FOR STAFF EDUCATED IN ORAL CARE NEEDS. PLAN: CONTINUE WITH NONORAL FEEDINGS (NGT) AND ORAL CARE AFTER EGD UNTIL HE IS READY FOR MBSS D/W JAMAICA GOODMAN
--- NOTE | 2019-12-14 13:00 | NUR ---
NURSE NOTES: The patient is stable without acute distress or shortness of breath. Will continue plan of care.
--- NOTE | 2019-12-14 13:12 | Surgery Progress Note ---
Surgery Progress Note Subjective Additional Comments Patient seen and examined at bedside. CT noted. Discussed with GI. Plan for EUS tomorrow. lft's improving Objective Last 24 Hour Vital Signs Date Time Temp Pulse Resp B/P (MAP) Pulse Ox O2 Delivery O2 Flow Rate FiO2 12/14/19 09:29 74 20 97 Nasal Cannula 3.0 32 12/14/19 09:29 97 Nasal Cannula 2.0 28 12/14/19 04:00 70 12/14/19 04:00 96.8 70 16 111/65 (80) 98 12/14/19 00:00 97.3 70 18 120/74 (89) 95 12/14/19 00:00 70 12/13/19 20:17 96 Nasal Cannula 2.0 28 12/13/19 20:17 90 18 96 Nasal Cannula 2.0 28 12/13/19 20:00 73 12/13/19 20:00 97.2 73 16 132/62 (85) 94 12/13/19 16:00 97.7 60 20 118/64 (82) 96 12/13/19 16:00 75 12/13/19 16:00 Nasal Cannula 3.0 12/13/19 14:00 80 116/61 I&O Intake and Output 12/13/19 12/14/19 19:00 07:00 Output Total 1800 ml 900 ml Balance -1800 ml -900 ml Output Urine Total 1800 ml 900 ml # Bowel Movements 1 Cardiovascular: RSR Respiratory: decreased breath sounds Abdomen: soft, present bowel sounds Extremities: no cyanosis Laboratory Tests Test 12/14/19 06:27 White Blood Count 6.1 K/UL (4.8-10.8) Red Blood Count 3.53 M/UL (4.70-6.10) L Hemoglobin 11.0 G/DL (14.2-18.0) L Hematocrit 32.2 % (42.0-52.0) L Mean Corpuscular Volume 91 FL (80-99) Mean Corpuscular Hemoglobin 31.2 PG (27.0-31.0) H Mean Corpuscular Hemoglobin Concent 34.2 G/DL (32.0-36.0) Red Cell Distribution Width 13.4 % (11.6-14.8) Platelet Count 157 K/UL (150-450) Mean Platelet Volume 7.5 FL (6.5-10.1) Neutrophils (%) (Auto) 72.5 % (45.0-75.0) Lymphocytes (%) (Auto) 14.6 % (20.0-45.0) L Monocytes (%) (Auto) 8.3 % (1.0-10.0) Eosinophils (%) (Auto) 4.1 % (0.0-3.0) H Basophils (%) (Auto) 0.5 % (0.0-2.0) Sodium Level 135 MMOL/L (136-145) L Potassium Level 3.2 MMOL/L (3.5-5.1) L Chloride Level 101 MMOL/L (98-107) Carbon Dioxide Level 30 MMOL/L (21-32) Anion Gap 4 mmol/L (5-15) L Blood Urea Nitrogen 13 mg/dL (7-18) Creatinine 1.4 MG/DL (0.55-1.30) H Estimat Glomerular Filtration Rate mL/min (>60) Glucose Level 150 MG/DL (74-106) H Calcium Level 8.5 MG/DL (8.5-10.1) Total Bilirubin 8.8 MG/DL (0.2-1.0) H Direct Bilirubin 7.7 MG/DL (0.0-0.3) H Aspartate Amino Transf (AST/SGOT) 57 U/L (15-37) H Alanine Aminotransferase (ALT/SGPT) 36 U/L (12-78) Alkaline Phosphatase 251 U/L (46-116) H Total Protein 6.0 G/DL (6.4-8.2) L Albumin 1.4 G/DL (3.4-5.0) L Globulin 4.6 g/dL Albumin/Globulin Ratio 0.3 (1.0-2.7) L Plan Problems: (1) Sepsis Assessment & Plan: 89-year-old male with leukocytosis, fevers, tachycardia, abnormal labs. Abdominal ultrasound nondiagnostic MRCP unable to tolerate - eval for ERCP given condition appreciate GI input in discussion with GI likely believed to be related to hepatic insufficiency Continue IV antibiotics per infectious disease No acute surgical invention planned IV fluids Trend labs Resuscitation CT evaluated. Noted abnormal gallbladder with thickened wall and pericholecystic fluid indicative of potential cholecystitis. Biliary tract without dilatation on CT. LFTs slightly improving. Given significant abnormal LFTs including bilirubin, no stones seen on CT, ultrasound findings, and new finding of potentially acute cholecystitis still unlikely for such abnormal bilirubin findings based on just cholecystitis alone without biliary obstruction. Unfortunately people unable to obtain MRCP therefore plan for EUS/ ERCP tomorrow discussed with GI. Hold on surgical intervention at this time given patient's age comorbidities and high risk surgery given above We will follow with recommendations Thank you for let me participate in patient's care (2) Biliary obstruction Assessment & Plan: Findings: The study was limited due to bowel gas body habitus. The liver is mildly heterogeneous with questionable surface nodularity. Doppler interrogation of the main portal vein shows patency with hepatopedal, monophasic flow. There is no biliary ductal dilatation identified. Gallbladder is grossly unremarkable. There demonstrated part of the pancreas, aorta and IVC show no obvious abnormalities. The structures are poorly seen. Both kidneys are poorly seen. There is no obvious hydronephrosis. IMPRESSION: No acute findings Very limited study Gallbladder is distended, but there are no gallstones and no wall thickening demonstrated. Negative for dilated bile ducts Equivocally mildly increased renal echogenicity, if real could indicate medical renal disease. Negative for evidence of hydronephrosis Gallbladder is abnormal. Gallbladder wall is thickened. There is pericholecystic stranding and ill-definition of the gallbladder wall. Findings concerning for cholecystitis. No obvious stones are seen on this exam within the gallbladder. There is no biliary duct dilatation identified. There is interposition of the hepatic flexure which resides between the diaphragm and the anterior part of the liver. There are small perihepatic nodes present.. (3) Elevated LFTs Ajit Mcnulty Dec 14, 2019 13:12
--- NOTE | 2019-12-14 13:36 | Nephrology Progress Note ---
Assessment/Plan Problem List: (1) Renal failure (ARF), acute on chronic (2) Alzheimer's dementia (3) Sepsis (4) UTI (urinary tract infection) (5) High bilirubin Assessment Acute on Chronic renal failure- CHF- Past echo 55% EjFx Sepsis, High Lactate- Leukocytosis Left lower lobe pneumonia Alzheimer's dementia UTI (urinary tract infection) Hyperglycemia, DM II Plan mag supplement 2D echo noted KCL IV and Po as needed slow hydrate- D5w monitor renal parameters correct electrolytes BP and BS in check per orders Subjective ROS Limited/Unobtainable: No Constitutional: Reports: malaise Objective Objective Last 24 Hour Vital Signs Date Time Temp Pulse Resp B/P (MAP) Pulse Ox O2 Delivery O2 Flow Rate FiO2 12/14/19 13:19 80 122/73 12/14/19 09:29 74 20 97 Nasal Cannula 3.0 32 12/14/19 09:29 97 Nasal Cannula 2.0 28 12/14/19 04:00 70 12/14/19 04:00 96.8 70 16 111/65 (80) 98 12/14/19 00:00 97.3 70 18 120/74 (89) 95 12/14/19 00:00 70 12/13/19 20:17 96 Nasal Cannula 2.0 28 12/13/19 20:17 90 18 96 Nasal Cannula 2.0 28 12/13/19 20:00 73 12/13/19 20:00 97.2 73 16 132/62 (85) 94 12/13/19 16:00 97.7 60 20 118/64 (82) 96 12/13/19 16:00 75 12/13/19 16:00 Nasal Cannula 3.0 12/13/19 14:00 80 116/61 Intake and Output 12/13/19 12/14/19 19:00 07:00 Output Total 1800 ml 900 ml Balance -1800 ml -900 ml Output Urine Total 1800 ml 900 ml # Bowel Movements 1 Laboratory Tests 12/14/19 06:27: White Blood Count 6.1, Red Blood Count 3.53L, Hemoglobin 11.0L, Hematocrit 32.2L , Mean Corpuscular Volume 91, Mean Corpuscular Hemoglobin 31.2H, Mean Corpuscular Hemoglobin Concent 34.2, Red Cell Distribution Width 13.4, Platelet Count 157, Mean Platelet Volume 7.5, Neutrophils (%) (Auto) 72.5, Lymphocytes (% ) (Auto) 14.6L, Monocytes (%) (Auto) 8.3, Eosinophils (%) (Auto) 4.1H, Basophils (%) (Auto) 0.5, Sodium Level 135L, Potassium Level 3.2L, Chloride Level 101, Carbon Dioxide Level 30, Anion Gap 4L, Blood Urea Nitrogen 13, Creatinine 1.4H, Estimat Glomerular Filtration Rate , Glucose Level 150H, Calcium Level 8.5, Total Bilirubin 8.8H, Direct Bilirubin 7.7H, Aspartate Amino Transf (AST/SGOT) 57H, Alanine Aminotransferase (ALT/SGPT) 36, Alkaline Phosphatase 251H, Total Protein 6.0L, Albumin 1.4L, Globulin 4.6, Albumin/ Globulin Ratio 0.3L Height (Feet): 5 Height (Inches): 6.00 Weight (Pounds): 159 General Appearance: no apparent distress, lethargic Cardiovascular: normal rate Respiratory/Chest: decreased breath sounds Abdomen: soft Jose Ashraf MD Dec 14, 2019 13:36
--- NOTE | 2019-12-14 14:00 | NUR ---
NURSE NOTES: Dr. Ashraf ordered KCL 10mEq IVBP x4 for hypokalmeia. Will administer as ordered. The patient is still agitated but stable without acute distress or shortness of breath. Will continue plan of care.
[2019-12-14 16:00] VITALS: BP 113/63
--- NOTE | 2019-12-14 18:00 | NUR ---
NURSE NOTES: The patient is being more agitated. The patient is otherwise stable without acute distress or shortness of breath. Will continue plan of care.
--- NOTE | 2019-12-14 19:30 | NUR ---
HAND-OFF: Report given to JAMAICA Toro. The patient is resting on the bed without acute distress or shortness of breath. The patient's bed in the lowest position, call light in reach, and fall and aspiration precaution reinforced. IV site intact and patent. Oxygen therapy per order. Bilateral soft wrist restraints on per order and circulation and skin is intact. Condom cath intact and draining well. The patient will kept in NPO for procedure on 12/15/2019. Endorsed plan of care.
--- NOTE | 2019-12-14 19:31 | NUR ---
Report given to JAMAICA Toro. The patient is resting on the bed without acute distress or shortness of breath. The patient's bed in the lowest position, call light in reach, and fall and aspiration precaution reinforced. IV site intact and patent. Oxygen therapy per order. Bilateral soft wrist restraints on per order and circulation and skin is intact. Will continue with plan of care.
[2019-12-14 20:00] VITALS: BP 142/74
[2019-12-14] MEDS: Tamsulosin 0.4mg cap ORAL SCH (21:00)
--- NOTE | 2019-12-14 21:24 | General Progress Note ---
Assessment/Plan Problem List: (1) Sepsis ICD Codes: A41.9 - Sepsis, unspecified organism SNOMED: 42352136 Qualifiers: Qualified Codes: A41.9 - Sepsis, unspecified organism; R65.20 - Severe sepsis without septic shock; N17.9 - Acute kidney failure, unspecified (2) Alzheimer's dementia ICD Codes: G30.9 - Alzheimer's disease, unspecified; F02.80 - Dementia in other diseases classified elsewhere without behavioral disturbance SNOMED: 40881813 Qualifiers: Qualified Codes: G30.9 - Alzheimer's disease, unspecified; F02.80 - Dementia in other diseases classified elsewhere without behavioral disturbance (3) Elevated LFTs ICD Codes: R94.5 - Abnormal results of liver function studies SNOMED: 992265800, 687326656 (4) Cholestasis ICD Codes: K83.1 - Obstruction of bile duct SNOMED: 11203382 (5) Hyperbilirubinemia ICD Codes: E80.6 - Other disorders of bilirubin metabolism SNOMED: 67459523 (6) Left lower lobe pneumonia ICD Codes: J18.9 - Pneumonia, unspecified organism SNOMED: 269629295 Qualifiers: Qualified Codes: J18.9 - Pneumonia, unspecified organism (7) Renal failure (ARF), acute on chronic ICD Codes: N17.9 - Acute kidney failure, unspecified; N18.9 - Chronic kidney disease, unspecified SNOMED: 510594728 Qualifiers: Qualified Codes: N17.9 - Acute kidney failure, unspecified; N18.3 - Chronic kidney disease, stage 3 (moderate) Status: progressing, unchanged Assessment/Plan: not hypoxic no fever nutrition route per gi pna lethargic poor prognosis hypernatremia azotemia resp insuff peg per dr kuo Subjective ROS Limited/Unobtainable: Yes Allergies: Coded Allergies: No Known Allergies (Unverified , 03/19/17) Objective Last 24 Hour Vital Signs Date Time Temp Pulse Resp B/P (MAP) Pulse Ox O2 Delivery O2 Flow Rate FiO2 12/14/19 16:00 75 12/14/19 16:00 98.6 72 18 113/63 (80) 97 12/14/19 13:19 80 122/73 12/14/19 12:00 74 12/14/19 12:00 97.8 80 18 122/73 (89) 99 12/14/19 09:29 74 20 97 Nasal Cannula 3.0 32 12/14/19 09:29 97 Nasal Cannula 2.0 28 12/14/19 09:00 Nasal Cannula 3.0 12/14/19 08:00 97.4 76 18 118/69 (85) 100 12/14/19 08:00 76 12/14/19 04:00 70 12/14/19 04:00 96.8 70 16 111/65 (80) 98 12/14/19 00:00 97.3 70 18 120/74 (89) 95 12/14/19 00:00 70 Intake and Output 12/13/19 12/14/19 19:00 07:00 Output Total 1800 ml 900 ml Balance -1800 ml -900 ml Output Urine Total 1800 ml 900 ml # Bowel Movements 1 Laboratory Tests 12/14/19 06:27: White Blood Count 6.1, Red Blood Count 3.53L, Hemoglobin 11.0L, Hematocrit 32.2L , Mean Corpuscular Volume 91, Mean Corpuscular Hemoglobin 31.2H, Mean Corpuscular Hemoglobin Concent 34.2, Red Cell Distribution Width 13.4, Platelet Count 157, Mean Platelet Volume 7.5, Neutrophils (%) (Auto) 72.5, Lymphocytes (% ) (Auto) 14.6L, Monocytes (%) (Auto) 8.3, Eosinophils (%) (Auto) 4.1H, Basophils (%) (Auto) 0.5, Sodium Level 135L, Potassium Level 3.2L, Chloride Level 101, Carbon Dioxide Level 30, Anion Gap 4L, Blood Urea Nitrogen 13, Creatinine 1.4H, Estimat Glomerular Filtration Rate , Glucose Level 150H, Calcium Level 8.5, Total Bilirubin 8.8H, Direct Bilirubin 7.7H, Aspartate Amino Transf (AST/SGOT) 57H, Alanine Aminotransferase (ALT/SGPT) 36, Alkaline Phosphatase 251H, Total Protein 6.0L, Albumin 1.4L, Globulin 4.6, Albumin/ Globulin Ratio 0.3L Height (Feet): 5 Height (Inches): 6.00 Weight (Pounds): 159 Neck: supple Cardiovascular: normal rate Respiratory/Chest: lungs clear Abdomen: soft Gurmeet Elizabeth MD Dec 14, 2019 21:24
[2019-12-15] VITALS (10 sets, daily range): BP systolic 104–126; BP diastolic 53–78
[2019-12-15] MEDS: dilTIAZem HCl 30mg tab ORAL SCH ×3 (06:00→22:23)
[2019-12-15] MEDS: NovoLOG Insulin Flexpen SUBQ SCH ×4 (06:27→21:10)
--- NOTE | 2019-12-15 06:45 | Anethesia Preoperative Eval ---
Anesthesia Pre-op PMH/ROS General Date of Evaluation: Dec 15, 2019 Anesthesiologist: Mark ASA Score: ASA 4 Mallampati Score Class I : Soft palate, uvula, fauces, pillars visible Class II: Soft palate, uvula, fauces visible Class III: Soft palate, base of uvula visible Class IV: Only hard plate visible Mallampati Classification: Class II Surgeon: Ava Diagnosis: Hyperbilirubineamia, jaundice, sepsis, AMS Surgical Procedure: EGd with PEG and EUS Anesthesia History: none Family History: no anesthesia problems Allergies: Coded Allergies: No Known Allergies (Unverified , 03/19/17) Medications: see eMAR Patient NPO?: Yes NPO Date: Dec 15, 2019 NPO Time: 00:00 Past Medical History Cardiovascular: Reports: HTN, other - CHF; Denies: CAD, [place], valve dz, arrhythmia Pulmonary: Reports: COPD, other - LLL pneumonia with sepsis, lactic acidemia; Denies: asthma, OMAR Gastrointestinal/Genitourinary: Reports: GERD, other - acute on chronic renal insufficiency; Denies: CRI, ESRD Neurologic/Psychiatric: Reports: dementia, CVA, depression/anxiety, other - seizures; Denies: TIA Endocrine: Reports: DM; Denies: hypothyroidism, steroids, other HEENT: Denies: cataract (L), cataract (R), glaucoma, GALENA (L), GALENA (R), other Hematology/Immune: Reports: anemia - chronic disease, DVT - bilateral; Denies: bleeding disorder, other Musculoskeletal/Integumentary: Denies: OA, RA, DJD, DDD, edema, other PSxH Narrative: Unable to assess Anesthesia Pre-op Phys. Exam Physician Exam Last Vital Signs Date Time Temp Pulse Resp B/P (MAP) Pulse Ox O2 Delivery O2 Flow Rate FiO2 12/15/19 04:00 78 12/15/19 04:00 98.1 18 110/66 (81) 94 12/14/19 21:00 Nasal Cannula 3.0 12/14/19 20:00 28 Constitutional: NAD, other - jaundice Cardiovascular: RRR Respiratory: other - decreased breath sounds bilaterally Airway Exam Mallampati Score: Class II MO: limited ROM: limited Anesthesia Pre-op A/P Labs see chart Studies Pre-op Studies: EKG - ST with nonsepcific st changes Risk Assessment & Plan Assessment: ASA IV Plan: MAC Status Change Before Surgery: No Pre-Antibiotics Drug: N/A Nicky Mullen MD Dec 15, 2019 06:45
[2019-12-15] MEDS ORDERED: LR 1000ml 1,000 ML IVLG SCH (06:46)
[2019-12-15 06:59] LABS: BASOPHILS % (AUTO) 0.6 % (0.0-2.0); EOSINOPHILS % (AUTO) 3.8 % (0.0-3.0); HEMATOCRIT 30.6 % (42.0-52.0); HEMOGLOBIN 10.6 G/DL (14.2-18.0); LYMPHOCYTES % (AUTO) 12.9 % (20.0-45.0); MEAN CORPUSCULAR VOLUME 90 FL (80-99); MONOCYTES % (AUTO) 8.5 % (1.0-10.0); NEUTROPHILS % (AUTO) 74.2 % (45.0-75.0); PLATELET COUNT 183 K/UL (150-450); RED BLOOD COUNT 3.38 M/UL (4.70-6.10); RED CELL DISTRIBUTION WIDTH 13.5 % (11.6-14.8); WHITE BLOOD COUNT 6.5 K/UL (4.8-10.8)
--- NOTE | 2019-12-15 07:36 | NUR ---
HAND-OFF: Report given to JAMAICA Garza. Endorsed plan of care.
--- NOTE | 2019-12-15 07:42 | NUR ---
NURSE NOTES: Received report and patient from JAMAICA Toro. Patient is in bed resting, denies any pain at this time. Patient is A/Ox4, breathing even and unlabored, RA. No s/sx of acute distress noted. Bed on lowest position, bedside rails up x3. brakes engaged for safety, call light within reach. Patient is on bilateral soft restraint, sites checked, no swelling no edema noted, pulse present. Will continue with the plan of care.
[2019-12-15 07:49] LABS: ALANINE AMINOTRANSFERASE 37 U/L (12-78); ALBUMIN 1.4 G/DL (3.4-5.0); ALBUMIN/GLOBULIN RATIO 0.3 (1.0-2.7); ALKALINE PHOSPHATASE 263 U/L (46-116); ANION GAP 7 mmol/L (5-15); ASPARTATE AMINO TRANSFERASE 55 U/L (15-37); BILIRUBIN,TOTAL 7.5 MG/DL (0.2-1.0); BLOOD UREA NITROGEN 11 mg/dL (7-18); CALCIUM 8.5 MG/DL (8.5-10.1); CARBON DIOXIDE 29 MMOL/L (21-32); CHLORIDE 99 MMOL/L (98-107); CREATININE 1.3 MG/DL (0.55-1.30); POTASSIUM 3.3 MMOL/L (3.5-5.1); SODIUM 135 MMOL/L (136-145)
[2019-12-15 07:54] LABS: BILIRUBIN,DIRECT 6.6 MG/DL (0.0-0.3)
[2019-12-15 07:56] LABS: PHOSPHORUS 2.2 MG/DL (2.5-4.9)
[2019-12-15] MEDS: Meropenem 1 GM in NS 55 ML IVPB SCH ×2 (09:00→21:09)
[2019-12-15] MEDS: Docusate 100mg cap ORAL SCH ×3 (09:00→17:56)
[2019-12-15] MEDS ORDERED: Propofol 200mg/20ml IV ONE (09:00)
[2019-12-15] MEDS ORDERED: LR 1000ml ONE (09:00)
[2019-12-15] MEDS ORDERED: Lidocaine 1% MPF 10mg/ml 5ml ONE (09:00)
--- NOTE | 2019-12-15 09:00 | Pre-Procedure Note/Attestation ---
Pre-Procedure Note/Attestation Complete Prior to Procedure Planned Procedure: not applicable Procedure Narrative: elevated LFTS dysphagia Indications for Procedure Pre-Operative Diagnosis: EUS, EGd and peg Attestation I attest that I discussed the nature of the procedure; its benefits; risks and complications; and alternatives (and the risks and benefits of such alternatives ), prior to the procedure, with the patient (or the patient's legal business services sales representative). I attest that, if there was a reasonable possibility of needing a blood transfusion, the patient (or the patient's legal business services sales representative) was given the [facility] standardized written summary, pursuant to the Lexa Yaneth Blood Safety Act ([place] Health and Safety Code # 1645, as amended). I attest that I re-evaluated the patient just prior to the surgery and that there has been no change in the patient's H&P, except as documented below: Bladimir Escalante MD Dec 15, 2019 09:00
[2019-12-15] MEDS ORDERED: NS 500ML IVPB ONE (09:25)
--- NOTE | 2019-12-15 09:33 | Pulmonology Progress Note ---
Assessment/Plan Assessment/Plan IMPRESSION: 1. RLL pneumonia. Reviewed CT; pneumonia demonstrated R lung base. 2. Sepsis with lactic acidemia. 3. Acute renal insufficiency. 4. History of CHF. 5. Dementia. 6. Jaundice; has intra-abdominal/biliary issue; GI and surgery following; probable acute cholecystitis DISCUSSION: Continue antibiotics. I will follow carefully as respiratory [place] consultant. GI/surgery following. Currently saturating well on low flow O2 Kevin Lincoln M.D. Subjective Interval Events: CT abdomen reviewed; none new Constitutional: Reports: no symptoms HEENT: Repors: no symptoms Respiratory: Reports: no symptoms Cardiovascular: Reports: no symptoms Gastrointestinal/Abdominal: Reports: no symptoms Allergies: Coded Allergies: No Known Allergies (Unverified , 03/19/17) Objective Last 24 Hour Vital Signs Date Time Temp Pulse Resp B/P (MAP) Pulse Ox O2 Delivery O2 Flow Rate FiO2 12/15/19 04:00 78 12/15/19 04:00 98.1 78 18 110/66 (81) 94 12/15/19 00:00 98.1 92 18 109/64 (79) 97 12/15/19 00:00 92 12/14/19 21:43 75 142/72 12/14/19 21:00 Nasal Cannula 3.0 12/14/19 20:00 101 12/14/19 20:00 95 Nasal Cannula 2.0 28 12/14/19 20:00 78 18 95 Nasal Cannula 2.0 28 12/14/19 20:00 97.5 101 18 142/74 (96) 98 12/14/19 16:00 75 12/14/19 16:00 98.6 72 18 113/63 (80) 97 12/14/19 13:19 80 122/73 12/14/19 12:00 74 12/14/19 12:00 97.8 80 18 122/73 (89) 99 Intake and Output 12/14/19 12/15/19 19:00 07:00 Output Total 1200 ml Balance -1200 ml Output Urine Total 1200 ml # Bowel Movements 1 1 General Appearance: no acute distress HEENT: normocephalic Respiratory/Chest: chest wall non-tender, lungs clear Cardiovascular: normal peripheral pulses Abdomen: normal bowel sounds Laboratory Tests 12/15/19 06:13: White Blood Count 6.5, Red Blood Count 3.38L, Hemoglobin 10.6L, Hematocrit 30.6L , Mean Corpuscular Volume 90, Mean Corpuscular Hemoglobin 31.4H, Mean Corpuscular Hemoglobin Concent 34.7, Red Cell Distribution Width 13.5, Platelet Count 183, Mean Platelet Volume 7.7, Neutrophils (%) (Auto) 74.2, Lymphocytes (% ) (Auto) 12.9L, Monocytes (%) (Auto) 8.5, Eosinophils (%) (Auto) 3.8H, Basophils (%) (Auto) 0.6, Sodium Level 135L, Potassium Level 3.3L, Chloride Level 99, Carbon Dioxide Level 29, Anion Gap 7, Blood Urea Nitrogen 11, Creatinine 1.3, Estimat Glomerular Filtration Rate , Glucose Level 157H, Calcium Level 8.5, Phosphorus Level 2.2L, Magnesium Level 1.5L, Total Bilirubin 7.5H, Direct Bilirubin 6.6H, Aspartate Amino Transf (AST/SGOT) 55H, Alanine Aminotransferase (ALT/SGPT) 37, Alkaline Phosphatase 263H, C-Reactive Protein, Quantitative 8.1H, Pro-B-Type Natriuretic Peptide 836H, Total Protein 5.9L, Albumin 1.4L, Globulin 4.5, Albumin/Globulin Ratio 0.3L Current Medications Medications (Trade) Dose Ordered Sig/Filemon Route PRN Reason Start Time Stop Time Status Last Admin Dose Admin Acetaminophen (Tylenol) 325 mg Q6H PRN ORAL Mild Pain/Temp > 100.5 12/11/19 03:30 01/06/20 09:29 Acetaminophen (Tylenol) 650 mg Q4H PRN ORAL Mild Pain (Pain Scale 1-3) 12/15/19 07:00 12/15/19 13:00 Acetaminophen (Tylenol) 650 mg Q4H PRN RECTAL Mild Pain (Pain Scale 1-3) 12/11/19 04:15 01/09/20 00:14 Albuterol/ Ipratropium (Albuterol/ Ipratropium) 3 ml Q4H PRN HHN Shortness of Breath 12/12/19 21:45 12/17/19 21:44 12/12/19 22:06 Dextrose 1,000 ml @ 100 mls/hr Q10H IV 12/11/19 02:45 01/08/20 08:29 12/14/19 17:40 Dextrose (Dextrose 50%) 25 ml Q30M PRN IV Hypoglycemia 12/11/19 03:15 01/05/20 11:44 Dextrose (Dextrose 50%) 50 ml Q30M PRN IV Hypoglycemia 12/11/19 03:15 01/05/20 11:44 Diltiazem HCl (Cardizem) 30 mg EVERY 8 HOURS ORAL 12/11/19 06:00 01/05/20 13:59 12/14/19 21:43 Docusate Sodium (Colace) 100 mg TID ORAL 12/11/19 09:00 01/05/20 17:59 12/14/19 17:39 Insulin Aspart (NovoLOG) BEFORE MEALS AND HS SUBQ 12/11/19 06:30 01/05/20 16:29 12/14/19 17:08 Meropenem 1 gm/ Sodium Chloride 55 ml @ 110 mls/hr Q12HR IVPB 12/14/19 11:00 12/19/19 10:59 12/14/19 21:00 Pantoprazole (Protonix) 40 mg BID ORAL 12/11/19 09:00 01/05/20 14:44 12/14/19 17:39 Potassium Chloride (K-Dur) 40 meq TWICE A DAY ORAL 12/11/19 09:00 01/08/20 09:59 12/14/19 17:39 Quetiapine Fumarate (SEROqueL) 25 mg EVERY 6 HOURS PRN ORAL For Anxiety 12/11/19 03:00 01/09/20 02:59 Risperidone (RisperDAL) 0.5 mg Q12HR ORAL 12/11/19 09:00 01/05/20 08:59 12/14/19 21:44 Tamsulosin HCl (Flomax) 0.4 mg BEDTIME ORAL 12/11/19 21:00 01/05/20 20:59 12/12/19 21:26 Kevin Lincoln MD Dec 15, 2019 09:33
--- NOTE | 2019-12-15 10:06 | Endoscopy Procedure Note ---
Endoscopy Procedure Note General Indication for Procedure: dysphagia Procedures Performed: EGD, other - EUS Operative Findings/Diagnosis: dilated CBD, gastritis Specimen: none Pt Tolerated Procedure Well: Yes Estimated Blood Loss: none Anesthesia Anesthesiologist: dusty Anesthesia: MAC Inserted Devices Implant(s) used?: No GI Core Measures 50 yrs or older w/o bx or poly: Not Applicable 10yrs. F/U recommended: Not Applicable Bladimir Escalante MD Dec 15, 2019 10:06
--- NOTE | 2019-12-15 10:13 | Immediate Post-Op Evaluation ---
Immediate Post-Op Evalulation Immediate Post-Op Evalulation Procedure: EGD, EUS, PEG Date of Evaluation: Dec 15, 2019 Time of Evaluation: 10:15 IV Fluids: 250 Blood Products: 0 Estimated Blood Loss: min Urinary Output: 0 Blood Pressure Systolic: 122 Blood Pressure Diastolic: 53 Pulse Rate: 80 Respiratory Rate: 16 O2 Sat by Pulse Oximetry: 95 Temperature (Fahrenheit): 97.1 Pain Score (1-10): 0 Nausea: No Vomiting: No Complications 0 Patient Status: awake, reacts, patent, none Hydration Status: adequate Drug: anceef 1g Given Within 1 Hr of Incision: Yes Nicky Mullen MD Dec 15, 2019 10:13
--- NOTE | 2019-12-15 10:14 | 48 Hour Post Anesthesia Eval ---
Post Anesthesia Evaluation Procedure: EGD, EUS, PEG Date of Evaluation: Dec 15, 2019 Airway: patent Nausea: No Vomiting: No Pain Intensity: 0 Hydration Status: adequate Cardiopulmonary Status: at baseline Mental Status/LOC: patient returned to baseline Post-Anesthesia Complications: 0 Follow-up care needed: N/A - further care as per primary team Nicky Mullen MD Dec 15, 2019 10:14
[2019-12-15] MEDS ORDERED: Potassium Phosphate 20 MM in NS 275 ML IV ONE (12:00)
--- NOTE | 2019-12-15 12:13 | Cardiac Electrophysiology PN ---
Assessment/Plan Assessment/Plan 1. Hypertension. On Cardizem 30 mg every 8 hours via PEG. Echo Nl EF 2. Shortness of breath secondary to pneumonia. 3. Nonsustained VT 5 beats. K was replaced. Nl EF 4. Pneumonia, on Abx per Dr. Barth. 5. Renal failure. 6. Lactic acidosis. 7. Hyperbilirubinemia with total bilirubin of >10. Fu Dr Escalante MRI abdomen couldn't be done as unable to lay flat S/P CT abdomen and Pelvis. FU Dr Escalante 8. Renal failure with BUN of 35 and creatinine of 2.0. 9. Dysphagia, S/P PEG today 10. Dementia. DW RN Subjective Subjective In SR. Confused in restraints. No more VT S/P CT abdomen and Pelvis for high bilirubin. S/P PEG by Dr Escalante today Objective Last 24 Hour Vital Signs Date Time Temp Pulse Resp B/P (MAP) Pulse Ox O2 Delivery O2 Flow Rate FiO2 12/15/19 10:35 97.2 69 19 118/68 94 Nasal Cannula 3 12/15/19 10:20 70 18 105/60 99 Simple Mask 6 12/15/19 10:15 73 20 111/62 98 Simple Mask 6 12/15/19 10:13 97.1 77 16 122/53 97 Simple Mask 6 12/15/19 10:13 80 16 95 12/15/19 09:00 Nasal Cannula 3.0 12/15/19 08:00 98.4 69 20 108/54 (72) 98 12/15/19 08:00 69 12/15/19 04:00 78 12/15/19 04:00 98.1 78 18 110/66 (81) 94 12/15/19 00:00 98.1 92 18 109/64 (79) 97 12/15/19 00:00 92 12/14/19 21:43 75 142/72 12/14/19 21:00 Nasal Cannula 3.0 12/14/19 20:00 101 12/14/19 20:00 95 Nasal Cannula 2.0 28 12/14/19 20:00 78 18 95 Nasal Cannula 2.0 28 12/14/19 20:00 97.5 101 18 142/74 (96) 98 12/14/19 16:00 75 12/14/19 16:00 98.6 72 18 113/63 (80) 97 12/14/19 13:19 80 122/73 Intake and Output 12/14/19 12/15/19 19:00 07:00 Output Total 1200 ml Balance -1200 ml Output Urine Total 1200 ml # Bowel Movements 1 1 Laboratory Tests Test 12/15/19 06:13 White Blood Count 6.5 K/UL (4.8-10.8) Red Blood Count 3.38 M/UL (4.70-6.10) L Hemoglobin 10.6 G/DL (14.2-18.0) L Hematocrit 30.6 % (42.0-52.0) L Mean Corpuscular Volume 90 FL (80-99) Mean Corpuscular Hemoglobin 31.4 PG (27.0-31.0) H Mean Corpuscular Hemoglobin Concent 34.7 G/DL (32.0-36.0) Red Cell Distribution Width 13.5 % (11.6-14.8) Platelet Count 183 K/UL (150-450) Mean Platelet Volume 7.7 FL (6.5-10.1) Neutrophils (%) (Auto) 74.2 % (45.0-75.0) Lymphocytes (%) (Auto) 12.9 % (20.0-45.0) L Monocytes (%) (Auto) 8.5 % (1.0-10.0) Eosinophils (%) (Auto) 3.8 % (0.0-3.0) H Basophils (%) (Auto) 0.6 % (0.0-2.0) Sodium Level 135 MMOL/L (136-145) L Potassium Level 3.3 MMOL/L (3.5-5.1) L Chloride Level 99 MMOL/L (98-107) Carbon Dioxide Level 29 MMOL/L (21-32) Anion Gap 7 mmol/L (5-15) Blood Urea Nitrogen 11 mg/dL (7-18) Creatinine 1.3 MG/DL (0.55-1.30) Estimat Glomerular Filtration Rate mL/min (>60) Glucose Level 157 MG/DL (74-106) H Calcium Level 8.5 MG/DL (8.5-10.1) Phosphorus Level 2.2 MG/DL (2.5-4.9) L Magnesium Level 1.5 MG/DL (1.8-2.4) L Total Bilirubin 7.5 MG/DL (0.2-1.0) H Direct Bilirubin 6.6 MG/DL (0.0-0.3) H Aspartate Amino Transf (AST/SGOT) 55 U/L (15-37) H Alanine Aminotransferase (ALT/SGPT) 37 U/L (12-78) Alkaline Phosphatase 263 U/L (46-116) H C-Reactive Protein, Quantitative 8.1 mg/dL (0.00-0.90) H Pro-B-Type Natriuretic Peptide 836 pg/mL (0-125) H Total Protein 5.9 G/DL (6.4-8.2) L Albumin 1.4 G/DL (3.4-5.0) L Globulin 4.5 g/dL Albumin/Globulin Ratio 0.3 (1.0-2.7) L Objective HEAD AND NECK: Shows no JVD.Sclera icteric. LUNGS: Decreased breath sounds. CARDIOVASCULAR: Shows regular S1 and S2 with no gallop. ABDOMEN: Soft.S/P PEG EXTREMITIES: No pitting edema. Kyle Reynoso MD Dec 15, 2019 12:13
--- NOTE | 2019-12-15 12:26 | Infectious Diseases Prog Note ---
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, hypertension, Alzheimer dementia, acute renal failure, improving Hypernatremia Acalculous cholecystitis Atelectasis/ Pneumonia RECOMMENDATION: Continue Meropenem Case was D/W GI specialist Subjective ROS Limited/Unobtainable: Yes Gastrointestinal/Abdominal: Reports: other - had EGD, PEG placement & EUS Neurologic: Reports: confusion, other - on restraint Allergies: Coded Allergies: No Known Allergies (Unverified , 03/19/17) Objective Vital Signs Last 24 Hour Vital Signs Date Time Temp Pulse Resp B/P (MAP) Pulse Ox O2 Delivery O2 Flow Rate FiO2 12/15/19 10:35 97.2 69 19 118/68 94 Nasal Cannula 3 12/15/19 10:20 70 18 105/60 99 Simple Mask 6 12/15/19 10:15 73 20 111/62 98 Simple Mask 6 12/15/19 10:13 97.1 77 16 122/53 97 Simple Mask 6 12/15/19 10:13 80 16 95 12/15/19 09:00 Nasal Cannula 3.0 12/15/19 08:00 98.4 69 20 108/54 (72) 98 12/15/19 08:00 69 12/15/19 04:00 78 12/15/19 04:00 98.1 78 18 110/66 (81) 94 12/15/19 00:00 98.1 92 18 109/64 (79) 97 12/15/19 00:00 92 12/14/19 21:43 75 142/72 12/14/19 21:00 Nasal Cannula 3.0 12/14/19 20:00 101 12/14/19 20:00 95 Nasal Cannula 2.0 28 12/14/19 20:00 78 18 95 Nasal Cannula 2.0 28 12/14/19 20:00 97.5 101 18 142/74 (96) 98 12/14/19 16:00 75 12/14/19 16:00 98.6 72 18 113/63 (80) 97 12/14/19 13:19 80 122/73 Height (Feet): 5 Height (Inches): 5.00 Weight (Pounds): 177 General Appearance: no acute distress HEENT: mucous membranes moist Respiratory/Chest: lungs clear Cardiovascular: normal rate Abdomen: soft, non tender, other - GT in place Extremities: other Neurologic/Psychiatric: alert, responsive Laboratory Tests Test 12/15/19 06:13 White Blood Count 6.5 K/UL (4.8-10.8) Red Blood Count 3.38 M/UL (4.70-6.10) L Hemoglobin 10.6 G/DL (14.2-18.0) L Hematocrit 30.6 % (42.0-52.0) L Mean Corpuscular Volume 90 FL (80-99) Mean Corpuscular Hemoglobin 31.4 PG (27.0-31.0) H Mean Corpuscular Hemoglobin Concent 34.7 G/DL (32.0-36.0) Red Cell Distribution Width 13.5 % (11.6-14.8) Platelet Count 183 K/UL (150-450) Mean Platelet Volume 7.7 FL (6.5-10.1) Neutrophils (%) (Auto) 74.2 % (45.0-75.0) Lymphocytes (%) (Auto) 12.9 % (20.0-45.0) L Monocytes (%) (Auto) 8.5 % (1.0-10.0) Eosinophils (%) (Auto) 3.8 % (0.0-3.0) H Basophils (%) (Auto) 0.6 % (0.0-2.0) Sodium Level 135 MMOL/L (136-145) L Potassium Level 3.3 MMOL/L (3.5-5.1) L Chloride Level 99 MMOL/L (98-107) Carbon Dioxide Level 29 MMOL/L (21-32) Anion Gap 7 mmol/L (5-15) Blood Urea Nitrogen 11 mg/dL (7-18) Creatinine 1.3 MG/DL (0.55-1.30) Estimat Glomerular Filtration Rate mL/min (>60) Glucose Level 157 MG/DL (74-106) H Calcium Level 8.5 MG/DL (8.5-10.1) Phosphorus Level 2.2 MG/DL (2.5-4.9) L Magnesium Level 1.5 MG/DL (1.8-2.4) L Total Bilirubin 7.5 MG/DL (0.2-1.0) H Direct Bilirubin 6.6 MG/DL (0.0-0.3) H Aspartate Amino Transf (AST/SGOT) 55 U/L (15-37) H Alanine Aminotransferase (ALT/SGPT) 37 U/L (12-78) Alkaline Phosphatase 263 U/L (46-116) H C-Reactive Protein, Quantitative 8.1 mg/dL (0.00-0.90) H Pro-B-Type Natriuretic Peptide 836 pg/mL (0-125) H Total Protein 5.9 G/DL (6.4-8.2) L Albumin 1.4 G/DL (3.4-5.0) L Globulin 4.5 g/dL Albumin/Globulin Ratio 0.3 (1.0-2.7) L Current Medications Medications (Trade) Dose Ordered Sig/Filemon Route PRN Reason Start Time Stop Time Status Last Admin Dose Admin Acetaminophen (Tylenol) 325 mg Q6H PRN ORAL Mild Pain/Temp > 100.5 12/11/19 03:30 01/06/20 09:29 Acetaminophen (Tylenol) 650 mg Q4H PRN RECTAL Mild Pain (Pain Scale 1-3) 12/11/19 04:15 01/09/20 00:14 Albuterol/ Ipratropium (Albuterol/ Ipratropium) 3 ml Q4H PRN HHN Shortness of Breath 12/12/19 21:45 12/17/19 21:44 12/12/19 22:06 Dextrose 1,000 ml @ 100 mls/hr Q10H IV 12/11/19 02:45 01/08/20 08:29 12/15/19 11:54 Dextrose (Dextrose 50%) 25 ml Q30M PRN IV Hypoglycemia 12/11/19 03:15 01/05/20 11:44 Dextrose (Dextrose 50%) 50 ml Q30M PRN IV Hypoglycemia 12/11/19 03:15 01/05/20 11:44 Diltiazem HCl (Cardizem) 30 mg EVERY 8 HOURS ORAL 12/11/19 06:00 01/05/20 13:59 12/14/19 21:43 Docusate Sodium (Colace) 100 mg TID ORAL 12/11/19 09:00 01/05/20 17:59 12/14/19 17:39 Insulin Aspart (NovoLOG) BEFORE MEALS AND HS SUBQ 12/11/19 06:30 01/05/20 16:29 12/14/19 17:08 Magnesium Sulfate 100 ml @ 100 mls/hr Q1H IVPB 12/15/19 12:00 12/15/19 15:59 12/15/19 11:49 Meropenem 1 gm/ Sodium Chloride 55 ml @ 110 mls/hr Q12HR IVPB 12/14/19 11:00 12/19/19 10:59 12/14/19 21:00 Pantoprazole (Protonix) 40 mg BID ORAL 12/11/19 09:00 01/05/20 14:44 12/14/19 17:39 Potassium Phosphate 20 mm/ Sodium Chloride 281.6667 ml @ 46.944 m... ONCE ONCE IV 12/15/19 12:00 12/15/19 17:59 12/15/19 11:50 Potassium Chloride (K-Dur) 40 meq TWICE A DAY ORAL 12/11/19 09:00 01/08/20 09:59 12/14/19 17:39 Quetiapine Fumarate (SEROqueL) 25 mg EVERY 6 HOURS PRN ORAL For Anxiety 12/11/19 03:00 01/09/20 02:59 Risperidone (RisperDAL) 0.5 mg Q12HR ORAL 12/11/19 09:00 01/05/20 08:59 12/14/19 21:44 Tamsulosin HCl (Flomax) 0.4 mg BEDTIME ORAL 12/11/19 21:00 01/05/20 20:59 12/12/19 21:26 Enrike Hadley MD Dec 15, 2019 12:26
--- NOTE | 2019-12-15 12:29 | Nephrology Progress Note ---
Assessment/Plan Problem List: (1) Renal failure (ARF), acute on chronic (2) Alzheimer's dementia (3) Sepsis (4) UTI (urinary tract infection) (5) High bilirubin Assessment Acute on Chronic renal failure- CHF- Past echo 55% EjFx Sepsis, High Lactate- Leukocytosis Left lower lobe pneumonia Alzheimer's dementia UTI (urinary tract infection) Hyperglycemia, DM II Plan mag supplement as needed 2D echo noted KCL IV and Po as needed slow hydrate- D5w monitor renal parameters correct electrolytes BP and BS in check per orders Subjective ROS Limited/Unobtainable: No Constitutional: Reports: malaise, weakness Objective Objective Last 24 Hour Vital Signs Date Time Temp Pulse Resp B/P (MAP) Pulse Ox O2 Delivery O2 Flow Rate FiO2 12/15/19 10:35 97.2 69 19 118/68 94 Nasal Cannula 3 12/15/19 10:20 70 18 105/60 99 Simple Mask 6 12/15/19 10:15 73 20 111/62 98 Simple Mask 6 12/15/19 10:13 97.1 77 16 122/53 97 Simple Mask 6 12/15/19 10:13 80 16 95 12/15/19 09:00 Nasal Cannula 3.0 12/15/19 08:00 98.4 69 20 108/54 (72) 98 12/15/19 08:00 69 12/15/19 04:00 78 12/15/19 04:00 98.1 78 18 110/66 (81) 94 12/15/19 00:00 98.1 92 18 109/64 (79) 97 12/15/19 00:00 92 12/14/19 21:43 75 142/72 12/14/19 21:00 Nasal Cannula 3.0 12/14/19 20:00 101 12/14/19 20:00 95 Nasal Cannula 2.0 28 12/14/19 20:00 78 18 95 Nasal Cannula 2.0 28 12/14/19 20:00 97.5 101 18 142/74 (96) 98 12/14/19 16:00 75 12/14/19 16:00 98.6 72 18 113/63 (80) 97 12/14/19 13:19 80 122/73 Intake and Output 12/14/19 12/15/19 19:00 07:00 Output Total 1200 ml Balance -1200 ml Output Urine Total 1200 ml # Bowel Movements 1 1 Laboratory Tests 12/15/19 06:13: White Blood Count 6.5, Red Blood Count 3.38L, Hemoglobin 10.6L, Hematocrit 30.6L , Mean Corpuscular Volume 90, Mean Corpuscular Hemoglobin 31.4H, Mean Corpuscular Hemoglobin Concent 34.7, Red Cell Distribution Width 13.5, Platelet Count 183, Mean Platelet Volume 7.7, Neutrophils (%) (Auto) 74.2, Lymphocytes (% ) (Auto) 12.9L, Monocytes (%) (Auto) 8.5, Eosinophils (%) (Auto) 3.8H, Basophils (%) (Auto) 0.6, Sodium Level 135L, Potassium Level 3.3L, Chloride Level 99, Carbon Dioxide Level 29, Anion Gap 7, Blood Urea Nitrogen 11, Creatinine 1.3, Estimat Glomerular Filtration Rate , Glucose Level 157H, Calcium Level 8.5, Phosphorus Level 2.2L, Magnesium Level 1.5L, Total Bilirubin 7.5H, Direct Bilirubin 6.6H, Aspartate Amino Transf (AST/SGOT) 55H, Alanine Aminotransferase (ALT/SGPT) 37, Alkaline Phosphatase 263H, C-Reactive Protein, Quantitative 8.1H, Pro-B-Type Natriuretic Peptide 836H, Total Protein 5.9L, Albumin 1.4L, Globulin 4.5, Albumin/Globulin Ratio 0.3L Height (Feet): 5 Height (Inches): 5.00 Weight (Pounds): 177 General Appearance: no apparent distress Cardiovascular: normal rate Respiratory/Chest: decreased breath sounds Abdomen: soft Objective no change Jose Ashraf MD Dec 15, 2019 12:29
--- NOTE | 2019-12-15 13:08 | NUR ---
CASE MANAGEMENT: REVIEW 12/15/2019 SI:SEPSIS WITH LACTIC ACIDEMIA . ACUTE ON CHRONIC RENAL FAILURE . HIGH BILIRUBIN . JAUNDICE . PNA . (+) VRE 98.2 71 18 104/59 95% NC 2L K+ 3.3 NA+ 135 H/H 10.6/30.6 BG 157 PHOS 2.2 MG 1.5 T.HIPOLITO/D.HIPOLITO 7.5/6.6 AST 55 ALK-PHOS 263 C-REC PRO- 8.1 BNP 836 IS:IV MAG SULFATE X4 BAGS IV MEROPENEM BID IVF D5@100ML/HR IV KPHOS X1 ALBUTEROL Q4HR/PRN NOVOLOG SQ AC&HS CARDIZEM PO Q8H PLAN: EGD WITH PEG PLACEMENT -TODAY MONITOR OFF RESTRAINTS START FEEDING TRAIL \: 2E TELE UNIT
--- NOTE | 2019-12-15 14:17 | Hematology/Onc Progress Note ---
Assessment/Plan Assessment/Plan Assessment and Recs: # Thrombocytopenia -- is likely related to sepsis from pna, currently in 100- 150 range --> smear has been ordered and reviewed --> meds are noted --> okay to continue on abx --> plt trend 169-->148k-->141-->128-->135-->163 --> hold off steriods --> hep and hiv NEG --> us abd negative for cirrhosis/hsm # Leukocytosis due to pna/lactic acidosis --> as per above --> smear has been reviewed --> as per id, on vanc/zosyn-->zosyn --> wbc trend: 16.7 -->14.1-->10.8-->7 # Anemia of chronic disease --> in this case due to hemodilution --> hgb trend: 12.3-->11.8 # Hyperbilirubinemia --> gi aware as per their recs -> may need ercp/mrcp as per gi --> mri as needed # AMS --> as per psych, on soft wr # Dysphagia -->2/5 s/p peg # Cholestasis # Biliary obstruction # Elevated LFTs # PNA/Sepsis Appreciate consultation and will tasha Rousseau. Subjective Constitutional: Denies: no symptoms, chills, fever, malaise, weakness, other HEENT: Denies: no symptoms, eye pain, blurred vision, tearing, double vision, ear pain, ear discharge, nose pain, nose congestion, throat pain, throat swelling, mouth pain, mouth swelling, other Cardiovascular: Denies: no symptoms, chest pain, edema, irregular heart rate, lightheadedness, palpitations, syncope, other Respiratory: Denies: no symptoms, cough, shortness of breath, SOB with excertion, SOB at rest, sputum, wheezing, other Genitourinary: Denies: no symptoms, burning, discharge, frequency, flank pain, hematuria, incontinence, pain, urgency, other Neurologic/Psychiatric: Denies: no symptoms, anxiety, depressed, emotional problems, headache, numbness, paresthesia, pre-existing deficit, seizure, tingling, tremors, weakness, other Endocrine: Denies: no symptoms, excessive sweating, flushing, intolerance to cold, intolerance to heat, increased hunger, increased thirst, increased urine, unexplained weight gain, unexplained weight loss, other Allergies: Coded Allergies: No Known Allergies (Unverified , 03/19/17) Subjective 12/08: awake, no acute events, wbc 16.7, afebrile, on abx, us abd negative 12/09: no acute distress, lft's worsening, wbc improving, nc 3l 12/10: labs noted, plt remains stable, is unable to have mri, no bleeding 12/12: bilat wrist restraints, wbc improved, remains on zosyn 12/13: on ngt feeds and also abx, with restraints, remains confused 12/14: remains on soft restraints, seen by psych, no bleedng noted, smear reviewed 12/15: no major events, no bleeding, labs noted, wbc better Objective Objective Current Medications Medications (Trade) Dose Ordered Sig/Filemon Route PRN Reason Start Time Stop Time Status Last Admin Dose Admin Acetaminophen (Tylenol) 325 mg Q6H PRN ORAL Mild Pain/Temp > 100.5 12/11/19 03:30 01/06/20 09:29 Acetaminophen (Tylenol) 650 mg Q4H PRN RECTAL Mild Pain (Pain Scale 1-3) 12/11/19 04:15 01/09/20 00:14 Albuterol/ Ipratropium (Albuterol/ Ipratropium) 3 ml Q4H PRN HHN Shortness of Breath 12/12/19 21:45 12/17/19 21:44 12/12/19 22:06 Dextrose 1,000 ml @ 100 mls/hr Q10H IV 12/11/19 02:45 01/08/20 08:29 12/15/19 11:54 Dextrose (Dextrose 50%) 25 ml Q30M PRN IV Hypoglycemia 12/11/19 03:15 01/05/20 11:44 Dextrose (Dextrose 50%) 50 ml Q30M PRN IV Hypoglycemia 12/11/19 03:15 01/05/20 11:44 Diltiazem HCl (Cardizem) 30 mg EVERY 8 HOURS ORAL 12/11/19 06:00 01/05/20 13:59 12/14/19 21:43 Docusate Sodium (Colace) 100 mg TID ORAL 12/11/19 09:00 01/05/20 17:59 12/15/19 13:42 Insulin Aspart (NovoLOG) BEFORE MEALS AND HS SUBQ 12/11/19 06:30 01/05/20 16:29 12/14/19 17:08 Magnesium Sulfate 100 ml @ 100 mls/hr Q1H IVPB 12/15/19 12:00 12/15/19 15:59 12/15/19 13:43 Meropenem 1 gm/ Sodium Chloride 55 ml @ 110 mls/hr Q12HR IVPB 12/14/19 11:00 12/19/19 10:59 12/14/19 21:00 Pantoprazole (Protonix) 40 mg BID ORAL 12/11/19 09:00 01/05/20 14:44 12/14/19 17:39 Potassium Phosphate 20 mm/ Sodium Chloride 281.6667 ml @ 46.944 m... ONCE ONCE IV 12/15/19 12:00 12/15/19 17:59 12/15/19 11:50 Potassium Chloride (K-Dur) 40 meq TWICE A DAY ORAL 12/11/19 09:00 01/08/20 09:59 12/14/19 17:39 Quetiapine Fumarate (SEROqueL) 25 mg EVERY 6 HOURS PRN ORAL For Anxiety 12/11/19 03:00 01/09/20 02:59 Risperidone (RisperDAL) 0.5 mg Q12HR ORAL 12/11/19 09:00 01/05/20 08:59 12/14/19 21:44 Tamsulosin HCl (Flomax) 0.4 mg BEDTIME ORAL 12/11/19 21:00 01/05/20 20:59 12/12/19 21:26 Last 24 Hour Vital Signs Date Time Temp Pulse Resp B/P (MAP) Pulse Ox O2 Delivery O2 Flow Rate FiO2 12/15/19 13:41 66 104/59 12/15/19 12:00 66 12/15/19 12:00 98.2 71 18 104/59 (74) 95 12/15/19 10:35 97.2 69 19 118/68 94 Nasal Cannula 3 12/15/19 10:20 70 18 105/60 99 Simple Mask 6 12/15/19 10:15 73 20 111/62 98 Simple Mask 6 12/15/19 10:13 97.1 77 16 122/53 97 Simple Mask 6 12/15/19 10:13 80 16 95 12/15/19 09:00 Nasal Cannula 3.0 12/15/19 08:00 98.4 69 20 108/54 (72) 98 12/15/19 08:00 69 12/15/19 04:00 78 12/15/19 04:00 98.1 78 18 110/66 (81) 94 12/15/19 00:00 98.1 92 18 109/64 (79) 97 12/15/19 00:00 92 12/14/19 21:43 75 142/72 12/14/19 21:00 Nasal Cannula 3.0 12/14/19 20:00 101 12/14/19 20:00 95 Nasal Cannula 2.0 28 12/14/19 20:00 78 18 95 Nasal Cannula 2.0 28 12/14/19 20:00 97.5 101 18 142/74 (96) 98 12/14/19 16:00 75 12/14/19 16:00 98.6 72 18 113/63 (80) 97 12/14/19 13:19 80 122/73 12/14/19 12:00 74 12/14/19 12:00 97.8 80 18 122/73 (89) 99 12/14/19 09:29 74 20 97 Nasal Cannula 3.0 32 12/14/19 09:29 97 Nasal Cannula 2.0 28 12/14/19 09:00 Nasal Cannula 3.0 12/14/19 08:00 97.4 76 18 118/69 (85) 100 12/14/19 08:00 76 12/14/19 04:00 70 12/14/19 04:00 96.8 70 16 111/65 (80) 98 12/14/19 00:00 97.3 70 18 120/74 (89) 95 12/14/19 00:00 70 12/13/19 20:17 96 Nasal Cannula 2.0 28 12/13/19 20:17 90 18 96 Nasal Cannula 2.0 28 12/13/19 20:00 73 12/13/19 20:00 97.2 73 16 132/62 (85) 94 12/13/19 16:00 97.7 60 20 118/64 (82) 96 12/13/19 16:00 75 12/13/19 16:00 Nasal Cannula 3.0 Intake and Output 12/14/19 12/15/19 19:00 07:00 Output Total 1200 ml Balance -1200 ml Output Urine Total 1200 ml # Bowel Movements 1 1 Labs Test 12/13/19 05:50 12/14/19 06:27 12/15/19 06:13 White Blood Count 7.3 K/UL (4.8-10.8) 6.1 K/UL (4.8-10.8) 6.5 K/UL (4.8-10.8) Red Blood Count 3.75 M/UL (4.70-6.10) 3.53 M/UL (4.70-6.10) 3.38 M/UL (4.70-6.10) Hemoglobin 11.8 G/DL (14.2-18.0) 11.0 G/DL (14.2-18.0) 10.6 G/DL (14.2-18.0) Hematocrit 33.9 % (42.0-52.0) 32.2 % (42.0-52.0) 30.6 % (42.0-52.0) Mean Corpuscular Volume 90 FL (80-99) 91 FL (80-99) 90 FL (80-99) Mean Corpuscular Hemoglobin 31.5 PG (27.0-31.0) 31.2 PG (27.0-31.0) 31.4 PG (27.0-31.0) Mean Corpuscular Hemoglobin Concent 34.9 G/DL (32.0-36.0) 34.2 G/DL (32.0-36.0) 34.7 G/DL (32.0-36.0) Red Cell Distribution Width 12.9 % (11.6-14.8) 13.4 % (11.6-14.8) 13.5 % (11.6-14.8) Platelet Count 163 K/UL (150-450) 157 K/UL (150-450) 183 K/UL (150-450) Mean Platelet Volume 7.9 FL (6.5-10.1) 7.5 FL (6.5-10.1) 7.7 FL (6.5-10.1) Neutrophils (%) (Auto) 65.4 % (45.0-75.0) 72.5 % (45.0-75.0) 74.2 % (45.0-75.0) Lymphocytes (%) (Auto) 23.3 % (20.0-45.0) 14.6 % (20.0-45.0) 12.9 % (20.0-45.0) Monocytes (%) (Auto) 7.6 % (1.0-10.0) 8.3 % (1.0-10.0) 8.5 % (1.0-10.0) Eosinophils (%) (Auto) 3.1 % (0.0-3.0) 4.1 % (0.0-3.0) 3.8 % (0.0-3.0) Basophils (%) (Auto) 0.5 % (0.0-2.0) 0.5 % (0.0-2.0) 0.6 % (0.0-2.0) Sodium Level 139 MMOL/L (136-145) 135 MMOL/L (136-145) 135 MMOL/L (136-145) Potassium Level 3.2 MMOL/L (3.5-5.1) 3.2 MMOL/L (3.5-5.1) 3.3 MMOL/L (3.5-5.1) Chloride Level 103 MMOL/L (98-107) 101 MMOL/L (98-107) 99 MMOL/L (98-107) Carbon Dioxide Level 30 MMOL/L (21-32) 30 MMOL/L (21-32) 29 MMOL/L (21-32) Anion Gap 7 mmol/L (5-15) 4 mmol/L (5-15) 7 mmol/L (5-15) Blood Urea Nitrogen 21 mg/dL (7-18) 13 mg/dL (7-18) 11 mg/dL (7-18) Creatinine 1.6 MG/DL (0.55-1.30) 1.4 MG/DL (0.55-1.30) 1.3 MG/DL (0.55-1.30) Estimat Glomerular Filtration Rate mL/min (>60) mL/min (>60) mL/min (>60) Glucose Level 173 MG/DL (74-106) 150 MG/DL (74-106) 157 MG/DL (74-106) Uric Acid 2.3 MG/DL (2.6-7.2) Calcium Level 7.9 MG/DL (8.5-10.1) 8.5 MG/DL (8.5-10.1) 8.5 MG/DL (8.5-10.1) Phosphorus Level 2.7 MG/DL (2.5-4.9) 2.2 MG/DL (2.5-4.9) Magnesium Level 1.5 MG/DL (1.8-2.4) 1.5 MG/DL (1.8-2.4) Total Bilirubin 10.2 MG/DL (0.2-1.0) 8.8 MG/DL (0.2-1.0) 7.5 MG/DL (0.2-1.0) Direct Bilirubin 8.8 MG/DL (0.0-0.3) 7.7 MG/DL (0.0-0.3) 6.6 MG/DL (0.0-0.3) Aspartate Amino Transf (AST/SGOT) 55 U/L (15-37) 57 U/L (15-37) 55 U/L (15-37) Alanine Aminotransferase (ALT/SGPT) 33 U/L (12-78) 36 U/L (12-78) 37 U/L (12-78) Alkaline Phosphatase 255 U/L (46-116) 251 U/L (46-116) 263 U/L (46-116) Total Protein 6.0 G/DL (6.4-8.2) 6.0 G/DL (6.4-8.2) 5.9 G/DL (6.4-8.2) Albumin 1.4 G/DL (3.4-5.0) 1.4 G/DL (3.4-5.0) 1.4 G/DL (3.4-5.0) Globulin 4.6 g/dL 4.6 g/dL 4.5 g/dL Albumin/Globulin Ratio 0.3 (1.0-2.7) 0.3 (1.0-2.7) 0.3 (1.0-2.7) C-Reactive Protein, Quantitative 8.1 mg/dL (0.00-0.90) Pro-B-Type Natriuretic Peptide 836 pg/mL (0-125) Height (Feet): 5 Height (Inches): 5.00 Weight (Pounds): 177 Objective Physical Exam Vitals: noted General: no apparent distress HEENT: supple Resp: normal breath sounds, no respiratory distress, NC+ Cardiovascular: normal rate Gastrointestinal: normal inspection, non tender, +peg Skin: normal inspection, normal color, no rash, warm/dry, palpation normal, well hydrated Lymphatic: normal inspection, no adenopathy Damian Batres MD Dec 15, 2019 14:17
--- NOTE | 2019-12-15 15:02 | Surgery Progress Note ---
Surgery Progress Note Subjective Additional Comments eus today pending report stable labs improved Objective Last 24 Hour Vital Signs Date Time Temp Pulse Resp B/P (MAP) Pulse Ox O2 Delivery O2 Flow Rate FiO2 12/15/19 13:41 66 104/59 12/15/19 12:00 66 12/15/19 12:00 98.2 71 18 104/59 (74) 95 12/15/19 10:35 97.2 69 19 118/68 94 Nasal Cannula 3 12/15/19 10:20 70 18 105/60 99 Simple Mask 6 12/15/19 10:15 73 20 111/62 98 Simple Mask 6 12/15/19 10:13 97.1 77 16 122/53 97 Simple Mask 6 12/15/19 10:13 80 16 95 12/15/19 09:00 Nasal Cannula 3.0 12/15/19 08:00 98.4 69 20 108/54 (72) 98 12/15/19 08:00 69 12/15/19 04:00 78 12/15/19 04:00 98.1 78 18 110/66 (81) 94 12/15/19 00:00 98.1 92 18 109/64 (79) 97 12/15/19 00:00 92 12/14/19 21:43 75 142/72 12/14/19 21:00 Nasal Cannula 3.0 12/14/19 20:00 101 12/14/19 20:00 95 Nasal Cannula 2.0 28 12/14/19 20:00 78 18 95 Nasal Cannula 2.0 28 12/14/19 20:00 97.5 101 18 142/74 (96) 98 12/14/19 16:00 75 12/14/19 16:00 98.6 72 18 113/63 (80) 97 I&O Intake and Output 12/14/19 12/15/19 18:59 06:59 Output Total 1200 ml Balance -1200 ml Output Urine Total 1200 ml # Bowel Movements 1 1 Dressing: other Wound: other Drains: other Cardiovascular: RSR Respiratory: clear, decreased breath sounds Abdomen: soft, present bowel sounds Extremities: no tenderness, no cyanosis Laboratory Tests Test 12/15/19 06:13 White Blood Count 6.5 K/UL (4.8-10.8) Red Blood Count 3.38 M/UL (4.70-6.10) L Hemoglobin 10.6 G/DL (14.2-18.0) L Hematocrit 30.6 % (42.0-52.0) L Mean Corpuscular Volume 90 FL (80-99) Mean Corpuscular Hemoglobin 31.4 PG (27.0-31.0) H Mean Corpuscular Hemoglobin Concent 34.7 G/DL (32.0-36.0) Red Cell Distribution Width 13.5 % (11.6-14.8) Platelet Count 183 K/UL (150-450) Mean Platelet Volume 7.7 FL (6.5-10.1) Neutrophils (%) (Auto) 74.2 % (45.0-75.0) Lymphocytes (%) (Auto) 12.9 % (20.0-45.0) L Monocytes (%) (Auto) 8.5 % (1.0-10.0) Eosinophils (%) (Auto) 3.8 % (0.0-3.0) H Basophils (%) (Auto) 0.6 % (0.0-2.0) Sodium Level 135 MMOL/L (136-145) L Potassium Level 3.3 MMOL/L (3.5-5.1) L Chloride Level 99 MMOL/L (98-107) Carbon Dioxide Level 29 MMOL/L (21-32) Anion Gap 7 mmol/L (5-15) Blood Urea Nitrogen 11 mg/dL (7-18) Creatinine 1.3 MG/DL (0.55-1.30) Estimat Glomerular Filtration Rate mL/min (>60) Glucose Level 157 MG/DL (74-106) H Calcium Level 8.5 MG/DL (8.5-10.1) Phosphorus Level 2.2 MG/DL (2.5-4.9) L Magnesium Level 1.5 MG/DL (1.8-2.4) L Total Bilirubin 7.5 MG/DL (0.2-1.0) H Direct Bilirubin 6.6 MG/DL (0.0-0.3) H Aspartate Amino Transf (AST/SGOT) 55 U/L (15-37) H Alanine Aminotransferase (ALT/SGPT) 37 U/L (12-78) Alkaline Phosphatase 263 U/L (46-116) H C-Reactive Protein, Quantitative 8.1 mg/dL (0.00-0.90) H Pro-B-Type Natriuretic Peptide 836 pg/mL (0-125) H Total Protein 5.9 G/DL (6.4-8.2) L Albumin 1.4 G/DL (3.4-5.0) L Globulin 4.5 g/dL Albumin/Globulin Ratio 0.3 (1.0-2.7) L Plan Problems: (1) Sepsis Assessment & Plan: 89-year-old male with leukocytosis, fevers, tachycardia, abnormal labs. Abdominal ultrasound nondiagnostic MRCP unable to tolerate - eval for ERCP given condition appreciate GI input in discussion with GI likely believed to be related to hepatic insufficiency Continue IV antibiotics per infectious disease No acute surgical invention planned IV fluids Trend labs Resuscitation CT evaluated. Noted abnormal gallbladder with thickened wall and pericholecystic fluid indicative of potential cholecystitis. Biliary tract without dilatation on CT. LFTs slightly improving. Given significant abnormal LFTs including bilirubin, no stones seen on CT, ultrasound findings, and new finding of potentially acute cholecystitis still unlikely for such abnormal bilirubin findings based on just cholecystitis alone without biliary obstruction. Unfortunately people unable to obtain MRCP therefore plan for EUS/ ERCP s/p discussed with GI. Hold on surgical intervention at this time given patient's age comorbidities and high risk surgery given above We will follow with recommendations Thank you for let me participate in patient's care (2) Biliary obstruction Assessment & Plan: Findings: The study was limited due to bowel gas body habitus. The liver is mildly heterogeneous with questionable surface nodularity. Doppler interrogation of the main portal vein shows patency with hepatopedal, monophasic flow. There is no biliary ductal dilatation identified. Gallbladder is grossly unremarkable. There demonstrated part of the pancreas, aorta and IVC show no obvious abnormalities. The structures are poorly seen. Both kidneys are poorly seen. There is no obvious hydronephrosis. IMPRESSION: No acute findings Very limited study Gallbladder is distended, but there are no gallstones and no wall thickening demonstrated. Negative for dilated bile ducts Equivocally mildly increased renal echogenicity, if real could indicate medical renal disease. Negative for evidence of hydronephrosis Gallbladder is abnormal. Gallbladder wall is thickened. There is pericholecystic stranding and ill-definition of the gallbladder wall. Findings concerning for cholecystitis. No obvious stones are seen on this exam within the gallbladder. There is no biliary duct dilatation identified. There is interposition of the hepatic flexure which resides between the diaphragm and the anterior part of the liver. There are small perihepatic nodes present.. (3) Elevated LFTs Ajit Mcnulty Dec 15, 2019 15:02
--- NOTE | 2019-12-15 15:15 | Procedure Note ---
DATE OF PROCEDURE: 12/15/2019 SURGEON: Bladimir Escalante M.D. REFERRING PHYSICIAN: Gurmeet Elizabeth M.D. PROCEDURE: Upper endoscopy with PEG placement and endoscopic ultrasound. ANESTHESIA: Per Dr. Flores. INSTRUMENT: Olympus adult flexible upper endoscope and EUS scope. INDICATION: Dilated common bile duct, abnormal liver function test, dysphagia with failure to thrive. REASON FOR PROCEDURE: The procedure, risks, benefits, and possible consequences, including hemorrhage, aspiration, perforation and infection, and alternative treatments, were explained to the patient/legal guardian by Dr. Bladimir Escalante and the patient/legal guardian understood and accepted these risks. DESCRIPTION OF PROCEDURE: After informed consent was obtained and the patient was adequately sedated, Olympus EUS scope was advanced from mouth into the second portion of duodenum. Pancreatic parenchyma was carefully examined through gastroduodenal mucosa. Starting at GE junction, celiac axis was examined. There was no obvious celiac . Pancreatic duct was not dilated in the pancreatic body nor in pancreatic tail. No evidence of any pancreatitis at this time. No pancreatic cyst or mass was seen. Then, the scope was advanced into the duodenal bulb and second portion of duodenum. Gallbladder was seen mildly distended. No obvious stones are seen. There was some sludge in both common bile duct and also in the gallbladder. Common bile duct was dilated to maximum diameter of 9 mm approximately and as we got close to the ampulla, shrink to about 6 mm. The common bile duct wall was a little bit thickened and there was some, maybe sludge in the common bile duct, but no obvious stone. Questionable cholangitis still in differential diagnosis. At this time, the EUS scope was retrieved and EGD scope was introduced and a 20-Canadian pull type of G-tube was successfully placed in epigastric area. The distance from the tip of the tube to skin was about 2 cm in size. The patient tolerated the procedure well without any complications. SUMMARY OF FINDINGS: 1. Atrophic gastritis. 2. Status post successful PEG placement. 3. Dilated gallbladder with some sludge in it. 4. Dilated common bile duct about 9 mm with common bile duct wall thickening and some sludge in the distal common bile duct, suggestive of possible cholangitis. RECOMMENDATIONS: 1. Abdominal binder. 2. Elevate the head of the bed at all times. 3. G-tube flush. 4. G-tube feeding. 5. Monitor labs. 6. If the patient has persistent elevated liver function test and not improving on antibiotics, may need ERCP. We will discuss with the family and primary care team. I want to thank, Dr. Gurmeet Elizabeth, for this kind referral. Bladimir Escalante M.D. DR: SERGEI JOB#: [id number] CC: Gurmeet Elizabeth M.D.; Fax#: [phone]
--- NOTE | 2019-12-15 15:45 | NUR ---
ST NOTES: SWALLOW STATUS: PATIENT SEEN FOR DYSPHAGIA. PEG PLACED TODAY PER RNTEJAS. PATIENT NOT ALERT FOR PO TRIALS BUT NEEDS A MODIFIED BARIUM SWALLOW STUDY TO FURTHER ASSESS SWALLOW, DETERMINE SILENT ASPIRATION RISK/ETIOLOGY, AND ATTEMPT TRIAL TX TECHNIQUES. PLAN: CONTINUE WITH NONORAL PEG FEEDINGS AND ORAL CARE CONSIDER MOD BARIUM SWALLOW STUDY (FOR ORAL GRATIFICATION MOSTLY) IP OR OP IF DC (DO NOT HOLD UP D/C FOR THIS STUDY)
--- NOTE | 2019-12-15 19:11 | NUR ---
HAND-OFF: Report given to JAMAICA Toro. Patient is in stable condition.
--- NOTE | 2019-12-15 19:12 | NUR ---
NURSE NOTES: Received pt from JAMAICA Garza. Pt is awake and resting in bed in no acute distress, no c/o pain. Pt on nasal cannula oxygen therapy with hob elevated. Iv sites intact. Bed locked in lowest position, bed alarm on, call light within reach. Will continue with plan of care
--- NOTE | 2019-12-15 20:39 | General Progress Note ---
Assessment/Plan Problem List: (1) Sepsis ICD Codes: A41.9 - Sepsis, unspecified organism SNOMED: 51217080 Qualifiers: Qualified Codes: A41.9 - Sepsis, unspecified organism; R65.20 - Severe sepsis without septic shock; N17.9 - Acute kidney failure, unspecified (2) Alzheimer's dementia ICD Codes: G30.9 - Alzheimer's disease, unspecified; F02.80 - Dementia in other diseases classified elsewhere without behavioral disturbance SNOMED: 28319260 Qualifiers: Qualified Codes: G30.9 - Alzheimer's disease, unspecified; F02.80 - Dementia in other diseases classified elsewhere without behavioral disturbance (3) Elevated LFTs ICD Codes: R94.5 - Abnormal results of liver function studies SNOMED: 719655659, 431913172 (4) Cholestasis ICD Codes: K83.1 - Obstruction of bile duct SNOMED: 79578516 (5) Hyperbilirubinemia ICD Codes: E80.6 - Other disorders of bilirubin metabolism SNOMED: 07024455 (6) Left lower lobe pneumonia ICD Codes: J18.9 - Pneumonia, unspecified organism SNOMED: 256971762 Qualifiers: Qualified Codes: J18.9 - Pneumonia, unspecified organism (7) Renal failure (ARF), acute on chronic ICD Codes: N17.9 - Acute kidney failure, unspecified; N18.9 - Chronic kidney disease, unspecified SNOMED: 438464982 Qualifiers: Qualified Codes: N17.9 - Acute kidney failure, unspecified; N18.3 - Chronic kidney disease, stage 3 (moderate) Status: progressing, unchanged Assessment/Plan: sepsis pna anemia no wheezing improved lft hypernatremia azotemia resp insuff peg per dr kuo Subjective ROS Limited/Unobtainable: Yes Allergies: Coded Allergies: No Known Allergies (Unverified , 03/19/17) Objective Last 24 Hour Vital Signs Date Time Temp Pulse Resp B/P (MAP) Pulse Ox O2 Delivery O2 Flow Rate FiO2 12/15/19 16:00 73 12/15/19 16:00 97.0 75 18 123/71 (88) 97 12/15/19 13:41 66 104/59 12/15/19 12:00 66 12/15/19 12:00 98.2 71 18 104/59 (74) 95 12/15/19 10:35 97.2 69 19 118/68 94 Nasal Cannula 3 12/15/19 10:20 70 18 105/60 99 Simple Mask 6 12/15/19 10:15 73 20 111/62 98 Simple Mask 6 12/15/19 10:13 97.1 77 16 122/53 97 Simple Mask 6 12/15/19 10:13 80 16 95 12/15/19 09:00 Nasal Cannula 3.0 12/15/19 08:00 98.4 69 20 108/54 (72) 98 12/15/19 08:00 69 12/15/19 07:00 96 Nasal Cannula 2.0 28 12/15/19 07:00 79 18 96 Nasal Cannula 2.0 28 12/15/19 04:00 78 12/15/19 04:00 98.1 78 18 110/66 (81) 94 12/15/19 00:00 98.1 92 18 109/64 (79) 97 12/15/19 00:00 92 12/14/19 21:43 75 142/72 12/14/19 21:00 Nasal Cannula 3.0 Intake and Output 12/14/19 12/15/19 19:00 07:00 Output Total 1200 ml Balance -1200 ml Output Urine Total 1200 ml # Bowel Movements 1 1 Laboratory Tests 12/15/19 06:13: White Blood Count 6.5, Red Blood Count 3.38L, Hemoglobin 10.6L, Hematocrit 30.6L , Mean Corpuscular Volume 90, Mean Corpuscular Hemoglobin 31.4H, Mean Corpuscular Hemoglobin Concent 34.7, Red Cell Distribution Width 13.5, Platelet Count 183, Mean Platelet Volume 7.7, Neutrophils (%) (Auto) 74.2, Lymphocytes (% ) (Auto) 12.9L, Monocytes (%) (Auto) 8.5, Eosinophils (%) (Auto) 3.8H, Basophils (%) (Auto) 0.6, Sodium Level 135L, Potassium Level 3.3L, Chloride Level 99, Carbon Dioxide Level 29, Anion Gap 7, Blood Urea Nitrogen 11, Creatinine 1.3, Estimat Glomerular Filtration Rate , Glucose Level 157H, Calcium Level 8.5, Phosphorus Level 2.2L, Magnesium Level 1.5L, Total Bilirubin 7.5H, Direct Bilirubin 6.6H, Aspartate Amino Transf (AST/SGOT) 55H, Alanine Aminotransferase (ALT/SGPT) 37, Alkaline Phosphatase 263H, C-Reactive Protein, Quantitative 8.1H, Pro-B-Type Natriuretic Peptide 836H, Total Protein 5.9L, Albumin 1.4L, Globulin 4.5, Albumin/Globulin Ratio 0.3L Height (Feet): 5 Height (Inches): 5.00 Weight (Pounds): 177 General Appearance: lethargic, confused Respiratory/Chest: lungs clear Gurmeet Elizabeth MD Dec 15, 2019 20:39
[2019-12-15] MEDS: Tamsulosin 0.4mg cap ORAL SCH (21:09)
[2019-12-16] VITALS: BP 121/64
--- NOTE | 2019-12-16 01:45 | Progress Note ---
DATE: 12/15/2019 SUBJECTIVE: The patient is doing well, calm, and cooperative. He has episodes of anxiety. No behavior issues noted. MENTAL STATUS EXAMINATION: The patient is alert. Mood is neutral. Affect is flat. Thought process is concrete. Thought content, no suicidal or homicidal ideation. Cognition is impaired. Insight and judgment fair. ASSESSMENT: Stable. PLAN: 1. We will continue current medications. 2. Provide the patient with reality orientation and supportive therapy. Melly Estrada M.D. DR: MYRNA JOB#: [id number] CC: LILY
[2019-12-16 04:00] VITALS: BP 118/82
--- NOTE | 2019-12-16 05:46 | Hematology/Onc Progress Note ---
Assessment/Plan Assessment/Plan Assessment and Recs: # Thrombocytopenia -- is likely related to sepsis from pna, currently in 100- 150 range --> smear has been ordered and reviewed --> meds are noted --> okay to continue on abx --> plt trend 169-->148k-->141-->128-->135-->163 --> hold off steriods --> hep and hiv NEG --> us abd negative for cirrhosis/hsm # Leukocytosis due to pna/lactic acidosis --> as per above --> smear has been reviewed --> as per id, on vanc/zosyn-->zosyn --> wbc trend: 16.7 -->14.1-->10.8-->7 --> PENDING eus/ercp # Anemia of chronic disease --> in this case due to hemodilution --> hgb trend: 12.3-->11.8 # Hyperbilirubinemia --> gi aware as per their recs --> mri as needed --> eus/ercp per surg # AMS --> as per psych, on soft wr # Dysphagia -->2/5 s/p peg # Cholestasis # Biliary obstruction # Elevated LFTs # PNA/Sepsis Appreciate consultation and will tasha Rousseau. Subjective Constitutional: Denies: no symptoms, chills, fever, malaise, weakness, other HEENT: Denies: no symptoms, eye pain, blurred vision, tearing, double vision, ear pain, ear discharge, nose pain, nose congestion, throat pain, throat swelling, mouth pain, mouth swelling, other Respiratory: Denies: no symptoms, cough, shortness of breath, SOB with excertion, SOB at rest, sputum, wheezing, other Genitourinary: Denies: no symptoms, burning, discharge, frequency, flank pain, hematuria, incontinence, pain, urgency, other Endocrine: Denies: no symptoms, excessive sweating, flushing, intolerance to cold, intolerance to heat, increased hunger, increased thirst, increased urine, unexplained weight gain, unexplained weight loss, other Allergies: Coded Allergies: No Known Allergies (Unverified , 03/19/17) Subjective 12/08: awake, no acute events, wbc 16.7, afebrile, on abx, us abd negative 12/09: no acute distress, lft's worsening, wbc improving, nc 3l 12/10: labs noted, plt remains stable, is unable to have mri, no bleeding 12/12: bilat wrist restraints, wbc improved, remains on zosyn 12/13: on ngt feeds and also abx, with restraints, remains confused 12/14: remains on soft restraints, seen by psych, no bleedng noted, smear reviewed 12/15: no major events, no bleeding, labs noted, wbc better 12/16: no events, labs noted, on abx, peg placed yesterday, no bleeding Objective Objective Current Medications Medications (Trade) Dose Ordered Sig/Filemon Route PRN Reason Start Time Stop Time Status Last Admin Dose Admin Acetaminophen (Tylenol) 325 mg Q6H PRN ORAL Mild Pain/Temp > 100.5 12/11/19 03:30 01/06/20 09:29 Acetaminophen (Tylenol) 650 mg Q4H PRN RECTAL Mild Pain (Pain Scale 1-3) 12/11/19 04:15 01/09/20 00:14 Albuterol/ Ipratropium (Albuterol/ Ipratropium) 3 ml Q4H PRN HHN Shortness of Breath 12/12/19 21:45 12/17/19 21:44 12/12/19 22:06 Dextrose 1,000 ml @ 100 mls/hr Q10H IV 12/11/19 02:45 01/08/20 08:29 12/16/19 03:32 Dextrose (Dextrose 50%) 25 ml Q30M PRN IV Hypoglycemia 12/11/19 03:15 01/05/20 11:44 Dextrose (Dextrose 50%) 50 ml Q30M PRN IV Hypoglycemia 12/11/19 03:15 01/05/20 11:44 Diltiazem HCl (Cardizem) 30 mg EVERY 8 HOURS ORAL 12/11/19 06:00 01/05/20 13:59 12/15/19 22:23 Docusate Sodium (Colace) 100 mg TID ORAL 12/11/19 09:00 01/05/20 17:59 12/15/19 17:56 Insulin Aspart (NovoLOG) BEFORE MEALS AND HS SUBQ 12/11/19 06:30 01/05/20 16:29 12/15/19 21:10 Meropenem 1 gm/ Sodium Chloride 55 ml @ 110 mls/hr Q12HR IVPB 12/14/19 11:00 12/19/19 10:59 12/15/19 21:09 Pantoprazole (Protonix) 40 mg BID ORAL 12/11/19 09:00 01/05/20 14:44 12/15/19 17:57 Potassium Chloride (K-Dur) 40 meq TWICE A DAY ORAL 12/11/19 09:00 01/08/20 09:59 12/15/19 17:57 Quetiapine Fumarate (SEROqueL) 25 mg EVERY 6 HOURS PRN ORAL For Anxiety 12/11/19 03:00 01/09/20 02:59 Risperidone (RisperDAL) 0.5 mg Q12HR ORAL 12/11/19 09:00 01/05/20 08:59 12/15/19 21:09 Tamsulosin HCl (Flomax) 0.4 mg BEDTIME ORAL 12/11/19 21:00 01/05/20 20:59 12/15/19 21:09 Last 24 Hour Vital Signs Date Time Temp Pulse Resp B/P (MAP) Pulse Ox O2 Delivery O2 Flow Rate FiO2 12/16/19 04:00 89 12/16/19 04:00 96.9 89 18 118/82 (94) 96 12/16/19 00:00 97.0 95 18 121/64 (83) 97 12/16/19 00:00 95 12/15/19 22:23 100 127/72 12/15/19 21:00 Nasal Cannula 3.0 12/15/19 20:04 83 18 96 Nasal Cannula 3.0 32 12/15/19 20:04 96 Nasal Cannula 3.0 32 12/15/19 20:00 84 12/15/19 20:00 96.6 84 18 126/78 (94) 96 12/15/19 16:00 73 12/15/19 16:00 97.0 75 18 123/71 (88) 97 12/15/19 13:41 66 104/59 12/15/19 12:00 66 12/15/19 12:00 98.2 71 18 104/59 (74) 95 12/15/19 10:35 97.2 69 19 118/68 94 Nasal Cannula 3 12/15/19 10:20 70 18 105/60 99 Simple Mask 6 12/15/19 10:15 73 20 111/62 98 Simple Mask 6 12/15/19 10:13 97.1 77 16 122/53 97 Simple Mask 6 12/15/19 10:13 80 16 95 12/15/19 09:00 Nasal Cannula 3.0 12/15/19 08:00 98.4 69 20 108/54 (72) 98 12/15/19 08:00 69 12/15/19 07:00 96 Nasal Cannula 2.0 28 12/15/19 07:00 79 18 96 Nasal Cannula 2.0 28 12/15/19 04:00 78 12/15/19 04:00 98.1 78 18 110/66 (81) 94 12/15/19 00:00 98.1 92 18 109/64 (79) 97 12/15/19 00:00 92 12/14/19 21:43 75 142/72 12/14/19 21:00 Nasal Cannula 3.0 12/14/19 20:00 101 12/14/19 20:00 95 Nasal Cannula 2.0 28 12/14/19 20:00 78 18 95 Nasal Cannula 2.0 28 12/14/19 20:00 97.5 101 18 142/74 (96) 98 12/14/19 16:00 75 12/14/19 16:00 98.6 72 18 113/63 (80) 97 12/14/19 13:19 80 122/73 12/14/19 12:00 74 12/14/19 12:00 97.8 80 18 122/73 (89) 99 12/14/19 09:29 74 20 97 Nasal Cannula 3.0 32 12/14/19 09:29 97 Nasal Cannula 2.0 28 12/14/19 09:00 Nasal Cannula 3.0 12/14/19 08:00 97.4 76 18 118/69 (85) 100 12/14/19 08:00 76 Intake and Output 12/15/19 12/16/19 19:00 07:00 Intake Total 300 ml Output Total 5 ml Balance 295 ml IV Total 300 ml Estimated Blood Loss 5 ml # Voids 2 # Bowel Movements 1 1 Labs Test 12/13/19 05:50 12/14/19 06:27 12/15/19 06:13 White Blood Count 7.3 K/UL (4.8-10.8) 6.1 K/UL (4.8-10.8) 6.5 K/UL (4.8-10.8) Red Blood Count 3.75 M/UL (4.70-6.10) 3.53 M/UL (4.70-6.10) 3.38 M/UL (4.70-6.10) Hemoglobin 11.8 G/DL (14.2-18.0) 11.0 G/DL (14.2-18.0) 10.6 G/DL (14.2-18.0) Hematocrit 33.9 % (42.0-52.0) 32.2 % (42.0-52.0) 30.6 % (42.0-52.0) Mean Corpuscular Volume 90 FL (80-99) 91 FL (80-99) 90 FL (80-99) Mean Corpuscular Hemoglobin 31.5 PG (27.0-31.0) 31.2 PG (27.0-31.0) 31.4 PG (27.0-31.0) Mean Corpuscular Hemoglobin Concent 34.9 G/DL (32.0-36.0) 34.2 G/DL (32.0-36.0) 34.7 G/DL (32.0-36.0) Red Cell Distribution Width 12.9 % (11.6-14.8) 13.4 % (11.6-14.8) 13.5 % (11.6-14.8) Platelet Count 163 K/UL (150-450) 157 K/UL (150-450) 183 K/UL (150-450) Mean Platelet Volume 7.9 FL (6.5-10.1) 7.5 FL (6.5-10.1) 7.7 FL (6.5-10.1) Neutrophils (%) (Auto) 65.4 % (45.0-75.0) 72.5 % (45.0-75.0) 74.2 % (45.0-75.0) Lymphocytes (%) (Auto) 23.3 % (20.0-45.0) 14.6 % (20.0-45.0) 12.9 % (20.0-45.0) Monocytes (%) (Auto) 7.6 % (1.0-10.0) 8.3 % (1.0-10.0) 8.5 % (1.0-10.0) Eosinophils (%) (Auto) 3.1 % (0.0-3.0) 4.1 % (0.0-3.0) 3.8 % (0.0-3.0) Basophils (%) (Auto) 0.5 % (0.0-2.0) 0.5 % (0.0-2.0) 0.6 % (0.0-2.0) Sodium Level 139 MMOL/L (136-145) 135 MMOL/L (136-145) 135 MMOL/L (136-145) Potassium Level 3.2 MMOL/L (3.5-5.1) 3.2 MMOL/L (3.5-5.1) 3.3 MMOL/L (3.5-5.1) Chloride Level 103 MMOL/L (98-107) 101 MMOL/L (98-107) 99 MMOL/L (98-107) Carbon Dioxide Level 30 MMOL/L (21-32) 30 MMOL/L (21-32) 29 MMOL/L (21-32) Anion Gap 7 mmol/L (5-15) 4 mmol/L (5-15) 7 mmol/L (5-15) Blood Urea Nitrogen 21 mg/dL (7-18) 13 mg/dL (7-18) 11 mg/dL (7-18) Creatinine 1.6 MG/DL (0.55-1.30) 1.4 MG/DL (0.55-1.30) 1.3 MG/DL (0.55-1.30) Estimat Glomerular Filtration Rate mL/min (>60) mL/min (>60) mL/min (>60) Glucose Level 173 MG/DL (74-106) 150 MG/DL (74-106) 157 MG/DL (74-106) Uric Acid 2.3 MG/DL (2.6-7.2) Calcium Level 7.9 MG/DL (8.5-10.1) 8.5 MG/DL (8.5-10.1) 8.5 MG/DL (8.5-10.1) Phosphorus Level 2.7 MG/DL (2.5-4.9) 2.2 MG/DL (2.5-4.9) Magnesium Level 1.5 MG/DL (1.8-2.4) 1.5 MG/DL (1.8-2.4) Total Bilirubin 10.2 MG/DL (0.2-1.0) 8.8 MG/DL (0.2-1.0) 7.5 MG/DL (0.2-1.0) Direct Bilirubin 8.8 MG/DL (0.0-0.3) 7.7 MG/DL (0.0-0.3) 6.6 MG/DL (0.0-0.3) Aspartate Amino Transf (AST/SGOT) 55 U/L (15-37) 57 U/L (15-37) 55 U/L (15-37) Alanine Aminotransferase (ALT/SGPT) 33 U/L (12-78) 36 U/L (12-78) 37 U/L (12-78) Alkaline Phosphatase 255 U/L (46-116) 251 U/L (46-116) 263 U/L (46-116) Total Protein 6.0 G/DL (6.4-8.2) 6.0 G/DL (6.4-8.2) 5.9 G/DL (6.4-8.2) Albumin 1.4 G/DL (3.4-5.0) 1.4 G/DL (3.4-5.0) 1.4 G/DL (3.4-5.0) Globulin 4.6 g/dL 4.6 g/dL 4.5 g/dL Albumin/Globulin Ratio 0.3 (1.0-2.7) 0.3 (1.0-2.7) 0.3 (1.0-2.7) C-Reactive Protein, Quantitative 8.1 mg/dL (0.00-0.90) Pro-B-Type Natriuretic Peptide 836 pg/mL (0-125) Height (Feet): 5 Height (Inches): 5.00 Weight (Pounds): 177 Objective Physical Exam Vitals: noted General: no apparent distress HEENT: supple Resp: normal breath sounds, no respiratory distress, NC+ Cardiovascular: normal rate Gastrointestinal: normal inspection, non tender, +peg Skin: normal inspection, normal color, no rash, warm/dry, palpation normal, well hydrated Lymphatic: normal inspection, no adenopathy Damian Batres MD Dec 16, 2019 05:46
[2019-12-16] MEDS: NovoLOG Insulin Flexpen SUBQ SCH ×4 (06:22→22:14)
[2019-12-16] MEDS: dilTIAZem HCl 30mg tab ORAL SCH ×3 (06:22→21:29)
--- NOTE | 2019-12-16 07:10 | NUR ---
HAND-OFF: Report given to JAMAICA Garza. Pt is awake and resting in bed in no acute distress. endorsed plan of care.
[2019-12-16 07:11] LABS: BASOPHILS % (AUTO) 0.5 % (0.0-2.0); HEMATOCRIT 30.4 % (42.0-52.0); HEMOGLOBIN 10.5 G/DL (14.2-18.0); LYMPHOCYTES % (AUTO) 15.2 % (20.0-45.0); MEAN CORPUSCULAR VOLUME 91 FL (80-99); MONOCYTES % (AUTO) 7.6 % (1.0-10.0); NEUTROPHILS % (AUTO) 74.7 % (45.0-75.0); PLATELET COUNT 211 K/UL (150-450); RED BLOOD COUNT 3.36 M/UL (4.70-6.10); RED CELL DISTRIBUTION WIDTH 13.3 % (11.6-14.8)
--- NOTE | 2019-12-16 07:17 | NUR ---
NURSE NOTES: Received report and patient from JAMAICA Toro. Patient is in bed resting, denies any pain at this time. Patient is A/Ox4, breathing even and unlabored, RA. No s/sx of acute distress noted. G-Tube site is intact and continuous running Glucerna 1.2 at 50cc/hr and patient is tolerating well, no residual, the goal is 60cc/hr. IV is intact and patent. Bed on lowest position, bedside rails up x3. brakes engaged for safety, call light within reach. Patient is on bilateral soft restraint, sites checked, no swelling no edema noted, pulse present. Will continue with the plan of care.
[2019-12-16 07:26] LABS: ALANINE AMINOTRANSFERASE 41 U/L (12-78); ALBUMIN 1.5 G/DL (3.4-5.0); ALBUMIN/GLOBULIN RATIO 0.3 (1.0-2.7); ALKALINE PHOSPHATASE 385 U/L (46-116); ANION GAP 3 mmol/L (5-15); ASPARTATE AMINO TRANSFERASE 74 U/L (15-37); BILIRUBIN,TOTAL 6.2 MG/DL (0.2-1.0); BLOOD UREA NITROGEN 11 mg/dL (7-18); CALCIUM 8.4 MG/DL (8.5-10.1); CARBON DIOXIDE 31 MMOL/L (21-32); CHLORIDE 99 MMOL/L (98-107); CREATININE 1.4 MG/DL (0.55-1.30); SODIUM 133 MMOL/L (136-145)
[2019-12-16 07:28] LABS: BILIRUBIN,DIRECT 5.5 MG/DL (0.0-0.3)
[2019-12-16 08:00] VITALS: BP 117/53
[2019-12-16] MEDS: Docusate 100mg cap ORAL SCH ×3 (08:05→17:52)
[2019-12-16] MEDS: Meropenem 1 GM in NS 55 ML IVPB SCH ×2 (08:05→21:29)
[2019-12-16 08:48] LABS: PHOSPHORUS 2.6 MG/DL (2.5-4.9)
--- NOTE | 2019-12-16 09:31 | Cardiac Electrophysiology PN ---
Assessment/Plan Assessment/Plan 1. Hypertension. On Cardizem 30 mg every 8 hours via PEG. 2. Shortness of breath secondary to pneumonia. Echo Nl EF 3. Nonsustained VT 5 beats. No further after K was replaced. Nl EF 4. Pneumonia, on Abx per Dr. Barth. 5. Renal failure. 6. Lactic acidosis. 7. Hyperbilirubinemia with total bilirubin of >10. Fu Dr Escalante MRI abdomen couldn't be done as unable to lay flat S/P CT abdomen and Pelvis. FU Dr. Escalante 8. Renal failure with BUN of 35 and creatinine of 2.0. 9. Dysphagia, S/P PEG 12/15/19 10. Dementia. DW RN Subjective Subjective In SR. Confused in restraints. No more VT S/P CT abdomen and Pelvis for high bilirubin. S/P PEG by Dr Escalante 12/15/19 Objective Last 24 Hour Vital Signs Date Time Temp Pulse Resp B/P (MAP) Pulse Ox O2 Delivery O2 Flow Rate FiO2 12/16/19 06:22 87 127/57 12/16/19 04:00 89 12/16/19 04:00 96.9 89 18 118/82 (94) 96 12/16/19 00:00 97.0 95 18 121/64 (83) 97 12/16/19 00:00 95 12/15/19 22:23 100 127/72 12/15/19 21:00 Nasal Cannula 3.0 12/15/19 20:04 83 18 96 Nasal Cannula 3.0 32 12/15/19 20:04 96 Nasal Cannula 3.0 32 12/15/19 20:00 84 12/15/19 20:00 96.6 84 18 126/78 (94) 96 12/15/19 16:00 73 12/15/19 16:00 97.0 75 18 123/71 (88) 97 12/15/19 13:41 66 104/59 12/15/19 12:00 66 12/15/19 12:00 98.2 71 18 104/59 (74) 95 12/15/19 10:35 97.2 69 19 118/68 94 Nasal Cannula 3 12/15/19 10:20 70 18 105/60 99 Simple Mask 6 12/15/19 10:15 73 20 111/62 98 Simple Mask 6 12/15/19 10:13 97.1 77 16 122/53 97 Simple Mask 6 12/15/19 10:13 80 16 95 Intake and Output 12/15/19 12/16/19 19:00 07:00 Intake Total 300 ml Output Total 5 ml Balance 295 ml IV Total 300 ml Estimated Blood Loss 5 ml # Voids 2 2 # Bowel Movements 1 1 Laboratory Tests Test 12/16/19 05:48 White Blood Count 8.0 K/UL (4.8-10.8) Red Blood Count 3.36 M/UL (4.70-6.10) L Hemoglobin 10.5 G/DL (14.2-18.0) L Hematocrit 30.4 % (42.0-52.0) L Mean Corpuscular Volume 91 FL (80-99) Mean Corpuscular Hemoglobin 31.3 PG (27.0-31.0) H Mean Corpuscular Hemoglobin Concent 34.5 G/DL (32.0-36.0) Red Cell Distribution Width 13.3 % (11.6-14.8) Platelet Count 211 K/UL (150-450) Mean Platelet Volume 7.4 FL (6.5-10.1) Neutrophils (%) (Auto) 74.7 % (45.0-75.0) Lymphocytes (%) (Auto) 15.2 % (20.0-45.0) L Monocytes (%) (Auto) 7.6 % (1.0-10.0) Eosinophils (%) (Auto) 2.0 % (0.0-3.0) Basophils (%) (Auto) 0.5 % (0.0-2.0) Sodium Level 133 MMOL/L (136-145) L Potassium Level 4.0 MMOL/L (3.5-5.1) Chloride Level 99 MMOL/L (98-107) Carbon Dioxide Level 31 MMOL/L (21-32) Anion Gap 3 mmol/L (5-15) L Blood Urea Nitrogen 11 mg/dL (7-18) Creatinine 1.4 MG/DL (0.55-1.30) H Estimat Glomerular Filtration Rate mL/min (>60) Glucose Level 171 MG/DL (74-106) H Osmolality 282 mOsm/kg (297-317) L Calcium Level 8.4 MG/DL (8.5-10.1) L Phosphorus Level 2.6 MG/DL (2.5-4.9) Magnesium Level 2.0 MG/DL (1.8-2.4) Total Bilirubin 6.2 MG/DL (0.2-1.0) H Direct Bilirubin 5.5 MG/DL (0.0-0.3) H Aspartate Amino Transf (AST/SGOT) 74 U/L (15-37) H Alanine Aminotransferase (ALT/SGPT) 41 U/L (12-78) Alkaline Phosphatase 385 U/L (46-116) H Total Protein 6.0 G/DL (6.4-8.2) L Albumin 1.5 G/DL (3.4-5.0) L Globulin 4.5 g/dL Albumin/Globulin Ratio 0.3 (1.0-2.7) L Objective HEAD AND NECK: Shows no JVD.Sclera icteric. LUNGS: Decreased breath sounds. CARDIOVASCULAR: Shows regular S1 and S2 with no gallop. ABDOMEN: Soft.S/P PEG EXTREMITIES: No pitting edema. Kyle Reynoso MD Dec 16, 2019 09:31
--- NOTE | 2019-12-16 10:54 | Nephrology Progress Note ---
Assessment/Plan Problem List: (1) Renal failure (ARF), acute on chronic (2) Alzheimer's dementia (3) Sepsis (4) UTI (urinary tract infection) (5) High bilirubin Assessment Acute on Chronic renal failure- CHF- Past echo 55% EjFx Sepsis, High Lactate- Leukocytosis Left lower lobe pneumonia Alzheimer's dementia UTI (urinary tract infection) Hyperglycemia, DM II Plan mag supplement as needed 2D echo noted KCL IV and Po as needed slow hydrate- D5w monitor renal parameters correct electrolytes BP and BS in check per orders Subjective ROS Limited/Unobtainable: No Constitutional: Reports: malaise, weakness Objective Objective Last 24 Hour Vital Signs Date Time Temp Pulse Resp B/P (MAP) Pulse Ox O2 Delivery O2 Flow Rate FiO2 12/16/19 09:00 Nasal Cannula 3.0 12/16/19 08:00 98.2 84 20 117/53 (74) 97 12/16/19 08:00 84 12/16/19 06:22 87 127/57 12/16/19 04:00 89 12/16/19 04:00 96.9 89 18 118/82 (94) 96 12/16/19 00:00 97.0 95 18 121/64 (83) 97 12/16/19 00:00 95 12/15/19 22:23 100 127/72 12/15/19 21:00 Nasal Cannula 3.0 12/15/19 20:04 83 18 96 Nasal Cannula 3.0 32 12/15/19 20:04 96 Nasal Cannula 3.0 32 12/15/19 20:00 84 12/15/19 20:00 96.6 84 18 126/78 (94) 96 12/15/19 16:00 73 12/15/19 16:00 97.0 75 18 123/71 (88) 97 12/15/19 13:41 66 104/59 12/15/19 12:00 66 12/15/19 12:00 98.2 71 18 104/59 (74) 95 Intake and Output 12/15/19 12/16/19 19:00 07:00 Intake Total 300 ml Output Total 5 ml Balance 295 ml IV Total 300 ml Estimated Blood Loss 5 ml # Voids 2 2 # Bowel Movements 1 1 Laboratory Tests 12/16/19 05:48: White Blood Count 8.0, Red Blood Count 3.36L, Hemoglobin 10.5L, Hematocrit 30.4L , Mean Corpuscular Volume 91, Mean Corpuscular Hemoglobin 31.3H, Mean Corpuscular Hemoglobin Concent 34.5, Red Cell Distribution Width 13.3, Platelet Count 211, Mean Platelet Volume 7.4, Neutrophils (%) (Auto) 74.7, Lymphocytes (% ) (Auto) 15.2L, Monocytes (%) (Auto) 7.6, Eosinophils (%) (Auto) 2.0, Basophils (%) (Auto) 0.5, Sodium Level 133L, Potassium Level 4.0, Chloride Level 99, Carbon Dioxide Level 31, Anion Gap 3L, Blood Urea Nitrogen 11, Creatinine 1.4H, Estimat Glomerular Filtration Rate , Glucose Level 171H, Osmolality 282L, Calcium Level 8.4L, Phosphorus Level 2.6, Magnesium Level 2.0, Total Bilirubin 6.2H, Direct Bilirubin 5.5H, Aspartate Amino Transf (AST/SGOT) 74H, Alanine Aminotransferase (ALT/SGPT) 41, Alkaline Phosphatase 385H, Total Protein 6.0L, Albumin 1.5L, Globulin 4.5, Albumin/Globulin Ratio 0.3L Height (Feet): 5 Height (Inches): 5.00 Weight (Pounds): 177 General Appearance: no apparent distress Cardiovascular: normal rate Respiratory/Chest: decreased breath sounds Abdomen: soft Objective no change Jose Ashraf MD Dec 16, 2019 10:53
--- NOTE | 2019-12-16 11:37 | GI Progress Note ---
Assessment/Plan Problems: (1) Elevated LFTs ICD Codes: R94.5 - Abnormal results of liver function studies SNOMED: 389956779, 034337785 (2) Biliary obstruction ICD Codes: K83.1 - Obstruction of bile duct SNOMED: 094846121 (3) Cholestasis ICD Codes: K83.1 - Obstruction of bile duct SNOMED: 51319570 (4) Hyperbilirubinemia ICD Codes: E80.6 - Other disorders of bilirubin metabolism SNOMED: 90976603 Status: progressing Status Narrative Discussed with Dr. Escalante. Assessment/Plan This is a 89-year-old male patient that presented with hyperbilirubinemia with no transaminitis 2/2 to cholestasis (1) Elevated LFTs --> suspect hepatitis (? autoimmune, ? 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, ? cholestasis due to sepsis) (2) No Biliary obstruction on abdominal ultrasound --> will check CT to better visualize liver (3) Hyperbilirubinemia (4) Malnutrition SUMMARY OF FINDINGS: 1. Atrophic gastritis. 2. Status post successful PEG placement. 3. Dilated gallbladder with some sludge in it. 4. Dilated common bile duct about 9 mm with common bile duct wall thickening and some sludge in the distal common bile duct, suggestive of possible cholangitis. RECOMMENDATIONS: Defer ERCP, improving bilirubin. GTF GT site care ppi abx trend LFTs The patient was seen and examined at bedside and all new and available data was reviewed in the patients chart. I agree with the above findings, impression and plan. (Patient seen earlier today. Signature stamp does not reflect patient encounter time.). - Bladimir Escalante MD Subjective Subjective limited Objective Last 24 Hour Vital Signs Date Time Temp Pulse Resp B/P (MAP) Pulse Ox O2 Delivery O2 Flow Rate FiO2 12/16/19 09:00 Nasal Cannula 3.0 12/16/19 08:00 98.2 84 20 117/53 (74) 97 12/16/19 08:00 84 12/16/19 06:22 87 127/57 12/16/19 04:00 89 12/16/19 04:00 96.9 89 18 118/82 (94) 96 12/16/19 00:00 97.0 95 18 121/64 (83) 97 12/16/19 00:00 95 12/15/19 22:23 100 127/72 12/15/19 21:00 Nasal Cannula 3.0 12/15/19 20:04 83 18 96 Nasal Cannula 3.0 32 12/15/19 20:04 96 Nasal Cannula 3.0 32 12/15/19 20:00 84 12/15/19 20:00 96.6 84 18 126/78 (94) 96 12/15/19 16:00 73 12/15/19 16:00 97.0 75 18 123/71 (88) 97 12/15/19 13:41 66 104/59 12/15/19 12:00 66 12/15/19 12:00 98.2 71 18 104/59 (74) 95 Intake and Output 12/15/19 12/16/19 19:00 07:00 Intake Total 300 ml Output Total 5 ml Balance 295 ml IV Total 300 ml Estimated Blood Loss 5 ml # Voids 2 2 # Bowel Movements 1 1 Laboratory Tests Test 12/16/19 05:48 White Blood Count 8.0 K/UL (4.8-10.8) Red Blood Count 3.36 M/UL (4.70-6.10) L Hemoglobin 10.5 G/DL (14.2-18.0) L Hematocrit 30.4 % (42.0-52.0) L Mean Corpuscular Volume 91 FL (80-99) Mean Corpuscular Hemoglobin 31.3 PG (27.0-31.0) H Mean Corpuscular Hemoglobin Concent 34.5 G/DL (32.0-36.0) Red Cell Distribution Width 13.3 % (11.6-14.8) Platelet Count 211 K/UL (150-450) Mean Platelet Volume 7.4 FL (6.5-10.1) Neutrophils (%) (Auto) 74.7 % (45.0-75.0) Lymphocytes (%) (Auto) 15.2 % (20.0-45.0) L Monocytes (%) (Auto) 7.6 % (1.0-10.0) Eosinophils (%) (Auto) 2.0 % (0.0-3.0) Basophils (%) (Auto) 0.5 % (0.0-2.0) Sodium Level 133 MMOL/L (136-145) L Potassium Level 4.0 MMOL/L (3.5-5.1) Chloride Level 99 MMOL/L (98-107) Carbon Dioxide Level 31 MMOL/L (21-32) Anion Gap 3 mmol/L (5-15) L Blood Urea Nitrogen 11 mg/dL (7-18) Creatinine 1.4 MG/DL (0.55-1.30) H Estimat Glomerular Filtration Rate mL/min (>60) Glucose Level 171 MG/DL (74-106) H Osmolality 282 mOsm/kg (297-317) L Calcium Level 8.4 MG/DL (8.5-10.1) L Phosphorus Level 2.6 MG/DL (2.5-4.9) Magnesium Level 2.0 MG/DL (1.8-2.4) Total Bilirubin 6.2 MG/DL (0.2-1.0) H Direct Bilirubin 5.5 MG/DL (0.0-0.3) H Aspartate Amino Transf (AST/SGOT) 74 U/L (15-37) H Alanine Aminotransferase (ALT/SGPT) 41 U/L (12-78) Alkaline Phosphatase 385 U/L (46-116) H Total Protein 6.0 G/DL (6.4-8.2) L Albumin 1.5 G/DL (3.4-5.0) L Globulin 4.5 g/dL Albumin/Globulin Ratio 0.3 (1.0-2.7) L Height (Feet): 5 Height (Inches): 5.00 Weight (Pounds): 177 General Appearance: WD/WN, no apparent distress, alert Cardiovascular: normal rate Respiratory/Chest: normal breath sounds, no respiratory distress Abdominal Exam: normal bowel sounds, non tender, soft, GT site Extremities: non-tender Demetrio Ash CEMETERY COUNSELOR Dec 16, 2019 11:37
[2019-12-16 12:00] VITALS: BP 113/57
--- NOTE | 2019-12-16 12:07 | Infectious Diseases Prog Note ---
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, hypertension, Alzheimer dementia, acute renal failure, improving Hypernatremia Acalculous cholecystitis Atelectasis/ Pneumonia RECOMMENDATION: Continue Meropenem Subjective ROS Limited/Unobtainable: Yes Neurologic: Reports: confusion, other - on restraint Allergies: Coded Allergies: No Known Allergies (Unverified , 03/19/17) Objective Vital Signs Last 24 Hour Vital Signs Date Time Temp Pulse Resp B/P (MAP) Pulse Ox O2 Delivery O2 Flow Rate FiO2 12/16/19 09:00 Nasal Cannula 3.0 12/16/19 08:00 98.2 84 20 117/53 (74) 97 12/16/19 08:00 84 12/16/19 06:22 87 127/57 12/16/19 04:00 89 12/16/19 04:00 96.9 89 18 118/82 (94) 96 12/16/19 00:00 97.0 95 18 121/64 (83) 97 12/16/19 00:00 95 12/15/19 22:23 100 127/72 12/15/19 21:00 Nasal Cannula 3.0 12/15/19 20:04 83 18 96 Nasal Cannula 3.0 32 12/15/19 20:04 96 Nasal Cannula 3.0 32 12/15/19 20:00 84 12/15/19 20:00 96.6 84 18 126/78 (94) 96 12/15/19 16:00 73 12/15/19 16:00 97.0 75 18 123/71 (88) 97 12/15/19 13:41 66 104/59 Height (Feet): 5 Height (Inches): 5.00 Weight (Pounds): 177 General Appearance: no acute distress HEENT: mucous membranes moist Respiratory/Chest: lungs clear Cardiovascular: normal rate Abdomen: soft, non tender, other - GT feeding Extremities: other - R hand edema Neurologic/Psychiatric: other - sleeping Laboratory Tests Test 12/16/19 05:48 White Blood Count 8.0 K/UL (4.8-10.8) Red Blood Count 3.36 M/UL (4.70-6.10) L Hemoglobin 10.5 G/DL (14.2-18.0) L Hematocrit 30.4 % (42.0-52.0) L Mean Corpuscular Volume 91 FL (80-99) Mean Corpuscular Hemoglobin 31.3 PG (27.0-31.0) H Mean Corpuscular Hemoglobin Concent 34.5 G/DL (32.0-36.0) Red Cell Distribution Width 13.3 % (11.6-14.8) Platelet Count 211 K/UL (150-450) Mean Platelet Volume 7.4 FL (6.5-10.1) Neutrophils (%) (Auto) 74.7 % (45.0-75.0) Lymphocytes (%) (Auto) 15.2 % (20.0-45.0) L Monocytes (%) (Auto) 7.6 % (1.0-10.0) Eosinophils (%) (Auto) 2.0 % (0.0-3.0) Basophils (%) (Auto) 0.5 % (0.0-2.0) Sodium Level 133 MMOL/L (136-145) L Potassium Level 4.0 MMOL/L (3.5-5.1) Chloride Level 99 MMOL/L (98-107) Carbon Dioxide Level 31 MMOL/L (21-32) Anion Gap 3 mmol/L (5-15) L Blood Urea Nitrogen 11 mg/dL (7-18) Creatinine 1.4 MG/DL (0.55-1.30) H Estimat Glomerular Filtration Rate mL/min (>60) Glucose Level 171 MG/DL (74-106) H Osmolality 282 mOsm/kg (297-317) L Calcium Level 8.4 MG/DL (8.5-10.1) L Phosphorus Level 2.6 MG/DL (2.5-4.9) Magnesium Level 2.0 MG/DL (1.8-2.4) Total Bilirubin 6.2 MG/DL (0.2-1.0) H Direct Bilirubin 5.5 MG/DL (0.0-0.3) H Aspartate Amino Transf (AST/SGOT) 74 U/L (15-37) H Alanine Aminotransferase (ALT/SGPT) 41 U/L (12-78) Alkaline Phosphatase 385 U/L (46-116) H Total Protein 6.0 G/DL (6.4-8.2) L Albumin 1.5 G/DL (3.4-5.0) L Globulin 4.5 g/dL Albumin/Globulin Ratio 0.3 (1.0-2.7) L Current Medications Medications (Trade) Dose Ordered Sig/Filemon Route PRN Reason Start Time Stop Time Status Last Admin Dose Admin Acetaminophen (Tylenol) 325 mg Q6H PRN ORAL Mild Pain/Temp > 100.5 12/11/19 03:30 01/06/20 09:29 Acetaminophen (Tylenol) 650 mg Q4H PRN RECTAL Mild Pain (Pain Scale 1-3) 12/11/19 04:15 01/09/20 00:14 Albuterol/ Ipratropium (Albuterol/ Ipratropium) 3 ml Q4H PRN HHN Shortness of Breath 12/12/19 21:45 12/17/19 21:44 12/12/19 22:06 Dextrose 1,000 ml @ 100 mls/hr Q10H IV 12/11/19 02:45 01/08/20 08:29 12/16/19 03:32 Dextrose (Dextrose 50%) 25 ml Q30M PRN IV Hypoglycemia 12/11/19 03:15 01/05/20 11:44 Dextrose (Dextrose 50%) 50 ml Q30M PRN IV Hypoglycemia 12/11/19 03:15 01/05/20 11:44 Diltiazem HCl (Cardizem) 30 mg EVERY 8 HOURS ORAL 12/11/19 06:00 01/05/20 13:59 12/16/19 06:22 Docusate Sodium (Colace) 100 mg TID ORAL 12/11/19 09:00 01/05/20 17:59 12/16/19 08:05 Insulin Aspart (NovoLOG) BEFORE MEALS AND HS SUBQ 12/11/19 06:30 01/05/20 16:29 12/16/19 11:36 Meropenem 1 gm/ Sodium Chloride 55 ml @ 110 mls/hr Q12HR IVPB 12/14/19 11:00 12/19/19 10:59 12/16/19 08:05 Pantoprazole (Protonix) 40 mg BID ORAL 12/11/19 09:00 01/05/20 14:44 12/16/19 08:04 Potassium Chloride (K-Dur) 40 meq TWICE A DAY ORAL 12/11/19 09:00 01/08/20 09:59 12/16/19 08:03 Quetiapine Fumarate (SEROqueL) 25 mg EVERY 6 HOURS PRN ORAL For Anxiety 12/11/19 03:00 01/09/20 02:59 12/16/19 08:36 Risperidone (RisperDAL) 0.5 mg Q12HR ORAL 12/11/19 09:00 01/05/20 08:59 12/16/19 08:04 Tamsulosin HCl (Flomax) 0.4 mg BEDTIME ORAL 12/11/19 21:00 01/05/20 20:59 12/15/19 21:09 Enrike Hadley MD Dec 16, 2019 12:07
--- NOTE | 2019-12-16 12:31 | NUR ---
CASE MANAGEMENT: REVIEW 12/16/2019 SI:POD# 1 PEG PLACEMENT SEPSIS WITH LACTIC ACIDEMIA . ACUTE ON CHRONIC RENAL FAILURE . HIGH BILIRUBIN . JAUNDICE . PNA . (+) VRE 98.1 83 20 113/57 97% NC 3L K+ 133 BG 171 CA+ 8.4 T.HIPOLITO/D.HIPOLITO 6.2/5.5 H/H 10.5/30.4 IS:IV MEROPENEM BID IVF D5@100ML/HR ALBUTEROL Q4HR/PRN NOVOLOG SQ AC&HS CARDIZEM PO Q8H FLOMAX PO QHS \: 2E TELE UNIT PLAN: TUBE FEEDING GOAL = 60ML
--- NOTE | 2019-12-16 13:30 | NUR ---
NURSE NOTES:WOUND CARE FOLLOW-UP NOTES: Skin Assessment completed with Primary nurse on unit.Sacrum and bilat gluteus .Non-blanching erythema without induration. R heel maroon and boggy (L)4cm x (W)5.6cm. New onset Maroon discoloration that is fluctuant at base noted to Lateral R heel . L heel is boggy but blanchable. Moisture Barrier Paste applied to Sacrum and covered with Optifoam drsg.Pt positioned with pillow on side. Cavilon Skin Barrier applied to both HIPS/trochanter and each covered with Optifoam drsg. Cavilon Skin Barrier applied to both heels. Each heel covered with Optifoam drsg and instructed staff to maintain heels off-loaded with pillows. Tx.plan: Apply Moisture Barrier Paste to Sacrum. Cover with Optifoam drsg. Change every 3 days and prn. Apply Cavilon Skin Barrier to Both heels . Cover each heel with Optifoam drsg. Change every 7 days and prn. Reposition at least every 2hours or as tolerated. Off-load heels with Pillow.
--- NOTE | 2019-12-16 15:31 | Surgery Progress Note ---
Surgery Progress Note Subjective Additional Comments no acute events lft's trending down exam stable Objective Last 24 Hour Vital Signs Date Time Temp Pulse Resp B/P (MAP) Pulse Ox O2 Delivery O2 Flow Rate FiO2 12/16/19 13:41 83 113/57 12/16/19 12:00 83 12/16/19 12:00 98.1 83 20 113/57 (75) 97 12/16/19 09:00 Nasal Cannula 3.0 12/16/19 08:00 98.2 84 20 117/53 (74) 97 12/16/19 08:00 84 12/16/19 06:22 87 127/57 12/16/19 04:00 89 12/16/19 04:00 96.9 89 18 118/82 (94) 96 12/16/19 00:00 97.0 95 18 121/64 (83) 97 12/16/19 00:00 95 12/15/19 22:23 100 127/72 12/15/19 21:00 Nasal Cannula 3.0 12/15/19 20:04 83 18 96 Nasal Cannula 3.0 32 12/15/19 20:04 96 Nasal Cannula 3.0 32 12/15/19 20:00 84 12/15/19 20:00 96.6 84 18 126/78 (94) 96 12/15/19 16:00 73 12/15/19 16:00 97.0 75 18 123/71 (88) 97 I&O Intake and Output 12/15/19 12/16/19 19:00 07:00 Intake Total 300 ml Output Total 5 ml Balance 295 ml IV Total 300 ml Estimated Blood Loss 5 ml # Voids 2 2 # Bowel Movements 1 1 Cardiovascular: RSR Respiratory: clear, decreased breath sounds Abdomen: soft, non-tender, present bowel sounds, non-distended Extremities: no tenderness, no cyanosis Laboratory Tests Test 12/16/19 05:48 White Blood Count 8.0 K/UL (4.8-10.8) Red Blood Count 3.36 M/UL (4.70-6.10) L Hemoglobin 10.5 G/DL (14.2-18.0) L Hematocrit 30.4 % (42.0-52.0) L Mean Corpuscular Volume 91 FL (80-99) Mean Corpuscular Hemoglobin 31.3 PG (27.0-31.0) H Mean Corpuscular Hemoglobin Concent 34.5 G/DL (32.0-36.0) Red Cell Distribution Width 13.3 % (11.6-14.8) Platelet Count 211 K/UL (150-450) Mean Platelet Volume 7.4 FL (6.5-10.1) Neutrophils (%) (Auto) 74.7 % (45.0-75.0) Lymphocytes (%) (Auto) 15.2 % (20.0-45.0) L Monocytes (%) (Auto) 7.6 % (1.0-10.0) Eosinophils (%) (Auto) 2.0 % (0.0-3.0) Basophils (%) (Auto) 0.5 % (0.0-2.0) Sodium Level 133 MMOL/L (136-145) L Potassium Level 4.0 MMOL/L (3.5-5.1) Chloride Level 99 MMOL/L (98-107) Carbon Dioxide Level 31 MMOL/L (21-32) Anion Gap 3 mmol/L (5-15) L Blood Urea Nitrogen 11 mg/dL (7-18) Creatinine 1.4 MG/DL (0.55-1.30) H Estimat Glomerular Filtration Rate mL/min (>60) Glucose Level 171 MG/DL (74-106) H Osmolality 282 mOsm/kg (297-317) L Calcium Level 8.4 MG/DL (8.5-10.1) L Phosphorus Level 2.6 MG/DL (2.5-4.9) Magnesium Level 2.0 MG/DL (1.8-2.4) Total Bilirubin 6.2 MG/DL (0.2-1.0) H Direct Bilirubin 5.5 MG/DL (0.0-0.3) H Aspartate Amino Transf (AST/SGOT) 74 U/L (15-37) H Alanine Aminotransferase (ALT/SGPT) 41 U/L (12-78) Alkaline Phosphatase 385 U/L (46-116) H Total Protein 6.0 G/DL (6.4-8.2) L Albumin 1.5 G/DL (3.4-5.0) L Globulin 4.5 g/dL Albumin/Globulin Ratio 0.3 (1.0-2.7) L Plan Problems: (1) Sepsis Assessment & Plan: 89-year-old male with leukocytosis, fevers, tachycardia, abnormal labs. Abdominal ultrasound nondiagnostic MRCP unable to tolerate - eval for ERCP given condition appreciate GI input in discussion with GI likely believed to be related to hepatic insufficiency Continue IV antibiotics per infectious disease No acute surgical invention planned IV fluids Trend labs Resuscitation CT evaluated. Noted abnormal gallbladder with thickened wall and pericholecystic fluid indicative of potential cholecystitis. Biliary tract without dilatation on CT. LFTs slightly improving. Given significant abnormal LFTs including bilirubin, no stones seen on CT, ultrasound findings, and new finding of potentially acute cholecystitis still unlikely for such abnormal bilirubin findings based on just cholecystitis alone without biliary obstruction. Unfortunately people unable to obtain MRCP therefore plan for EUS/ ERCP s/p discussed with GI. Hold on surgical intervention at this time given patient's age comorbidities and high risk surgery given above labs improving stable We will follow with recommendations Thank you for let me participate in patient's care (2) Biliary obstruction Assessment & Plan: Findings: The study was limited due to bowel gas body habitus. The liver is mildly heterogeneous with questionable surface nodularity. Doppler interrogation of the main portal vein shows patency with hepatopedal, monophasic flow. There is no biliary ductal dilatation identified. Gallbladder is grossly unremarkable. There demonstrated part of the pancreas, aorta and IVC show no obvious abnormalities. The structures are poorly seen. Both kidneys are poorly seen. There is no obvious hydronephrosis. IMPRESSION: No acute findings Very limited study Gallbladder is distended, but there are no gallstones and no wall thickening demonstrated. Negative for dilated bile ducts Equivocally mildly increased renal echogenicity, if real could indicate medical renal disease. Negative for evidence of hydronephrosis Gallbladder is abnormal. Gallbladder wall is thickened. There is pericholecystic stranding and ill-definition of the gallbladder wall. Findings concerning for cholecystitis. No obvious stones are seen on this exam within the gallbladder. There is no biliary duct dilatation identified. There is interposition of the hepatic flexure which resides between the diaphragm and the anterior part of the liver. There are small perihepatic nodes present.. (3) Elevated LFTs Ajit Mcnulty Dec 16, 2019 15:31
[2019-12-16 16:00] VITALS: BP 113/62
--- NOTE | 2019-12-16 19:18 | NUR ---
HAND-OFF: Report given to nurse Jane. Patient is in stable condition.
--- NOTE | 2019-12-16 19:48 | Pulmonology Progress Note ---
Assessment/Plan Assessment/Plan IMPRESSION: 1. RLL pneumonia. Reviewed CT; pneumonia demonstrated R lung base. 2. Sepsis with lactic acidemia. 3. Acute renal insufficiency. 4. History of CHF. 5. Dementia. 6. Jaundice; has intra-abdominal/biliary issue; GI and surgery following; probable acute cholecystitis DISCUSSION: Continue antibiotics. I will follow carefully as respiratory senior recruitment consultant. GI/surgery following. Currently saturating well on low flow O2 Kevin Lincoln M.D. Subjective Interval Events: None new Constitutional: Reports: no symptoms HEENT: Repors: no symptoms Respiratory: Reports: no symptoms Cardiovascular: Reports: no symptoms Allergies: Coded Allergies: No Known Allergies (Unverified , 03/19/17) Objective Last 24 Hour Vital Signs Date Time Temp Pulse Resp B/P (MAP) Pulse Ox O2 Delivery O2 Flow Rate FiO2 12/16/19 16:00 91 12/16/19 16:00 97.9 77 18 113/62 (79) 99 12/16/19 13:41 83 113/57 12/16/19 12:00 83 12/16/19 12:00 98.1 83 20 113/57 (75) 97 12/16/19 09:00 Nasal Cannula 3.0 12/16/19 08:00 98.2 84 20 117/53 (74) 97 12/16/19 08:00 84 12/16/19 06:22 87 127/57 12/16/19 04:00 89 12/16/19 04:00 96.9 89 18 118/82 (94) 96 12/16/19 00:00 97.0 95 18 121/64 (83) 97 12/16/19 00:00 95 12/15/19 22:23 100 127/72 12/15/19 21:00 Nasal Cannula 3.0 12/15/19 20:04 83 18 96 Nasal Cannula 3.0 32 12/15/19 20:04 96 Nasal Cannula 3.0 32 12/15/19 20:00 84 12/15/19 20:00 96.6 84 18 126/78 (94) 96 Intake and Output 12/15/19 12/16/19 19:00 07:00 Intake Total 300 ml Output Total 5 ml Balance 295 ml IV Total 300 ml Estimated Blood Loss 5 ml # Voids 2 2 # Bowel Movements 1 1 General Appearance: no acute distress HEENT: normocephalic Respiratory/Chest: chest wall non-tender Cardiovascular: normal peripheral pulses Abdomen: normal bowel sounds Extremities: no cyanosis Laboratory Tests 12/16/19 05:48: White Blood Count 8.0, Red Blood Count 3.36L, Hemoglobin 10.5L, Hematocrit 30.4L , Mean Corpuscular Volume 91, Mean Corpuscular Hemoglobin 31.3H, Mean Corpuscular Hemoglobin Concent 34.5, Red Cell Distribution Width 13.3, Platelet Count 211, Mean Platelet Volume 7.4, Neutrophils (%) (Auto) 74.7, Lymphocytes (% ) (Auto) 15.2L, Monocytes (%) (Auto) 7.6, Eosinophils (%) (Auto) 2.0, Basophils (%) (Auto) 0.5, Sodium Level 133L, Potassium Level 4.0, Chloride Level 99, Carbon Dioxide Level 31, Anion Gap 3L, Blood Urea Nitrogen 11, Creatinine 1.4H, Estimat Glomerular Filtration Rate , Glucose Level 171H, Osmolality 282L, Calcium Level 8.4L, Phosphorus Level 2.6, Magnesium Level 2.0, Total Bilirubin 6.2H, Direct Bilirubin 5.5H, Aspartate Amino Transf (AST/SGOT) 74H, Alanine Aminotransferase (ALT/SGPT) 41, Alkaline Phosphatase 385H, Total Protein 6.0L, Albumin 1.5L, Globulin 4.5, Albumin/Globulin Ratio 0.3L Current Medications Medications (Trade) Dose Ordered Sig/Filemon Route PRN Reason Start Time Stop Time Status Last Admin Dose Admin Acetaminophen (Tylenol) 325 mg Q6H PRN ORAL Mild Pain/Temp > 100.5 12/11/19 03:30 01/06/20 09:29 Acetaminophen (Tylenol) 650 mg Q4H PRN RECTAL Mild Pain (Pain Scale 1-3) 12/11/19 04:15 01/09/20 00:14 Albuterol/ Ipratropium (Albuterol/ Ipratropium) 3 ml Q4H PRN HHN Shortness of Breath 12/12/19 21:45 12/17/19 21:44 12/12/19 22:06 Dextrose 1,000 ml @ 100 mls/hr Q10H IV 12/11/19 02:45 01/08/20 08:29 12/16/19 13:42 Dextrose (Dextrose 50%) 25 ml Q30M PRN IV Hypoglycemia 12/11/19 03:15 01/05/20 11:44 Dextrose (Dextrose 50%) 50 ml Q30M PRN IV Hypoglycemia 12/11/19 03:15 01/05/20 11:44 Diltiazem HCl (Cardizem) 30 mg EVERY 8 HOURS ORAL 12/11/19 06:00 01/05/20 13:59 12/16/19 13:41 Docusate Sodium (Colace) 100 mg TID ORAL 12/11/19 09:00 01/05/20 17:59 12/16/19 17:52 Insulin Aspart (NovoLOG) BEFORE MEALS AND HS SUBQ 12/11/19 06:30 01/05/20 16:29 12/16/19 11:36 Meropenem 1 gm/ Sodium Chloride 55 ml @ 110 mls/hr Q12HR IVPB 12/14/19 11:00 12/19/19 10:59 12/16/19 08:05 Pantoprazole (Protonix) 40 mg BID ORAL 12/11/19 09:00 01/05/20 14:44 12/16/19 17:53 Potassium Chloride (K-Dur) 40 meq TWICE A DAY ORAL 12/11/19 09:00 01/08/20 09:59 12/16/19 17:52 Quetiapine Fumarate (SEROqueL) 25 mg EVERY 6 HOURS PRN ORAL For Anxiety 12/11/19 03:00 01/09/20 02:59 12/16/19 08:36 Risperidone (RisperDAL) 0.5 mg Q12HR ORAL 12/11/19 09:00 01/05/20 08:59 12/16/19 08:04 Tamsulosin HCl (Flomax) 0.4 mg BEDTIME ORAL 12/11/19 21:00 01/05/20 20:59 12/15/19 21:09 Kevin Lincoln MD Dec 16, 2019 19:48
[2019-12-16 20:00] VITALS: BP 135/83
--- NOTE | 2019-12-16 20:00 | NUR ---
NURSE NOTES: RECEIVED PATIENT LYING IN BED, AWAKE, NON VERBAL, ALL NEEDS ANTICIPATED AND MET BY NURSING STAFF. HEAD OF BED ELEVATED /ASPIRATION PRECAUTION. NO SIGNS AND SYMPTOMS OF ACUTE CARDIO RESPIRATORY DISTRESS/SHORTNESS OF BREATH, NO PERIPHERAL EDEMA NOTED. ABDOMEN ROUND/SOFT/AUDIBLE BOWEL SOUNDS, G TUBE INTACT, TOLERATING FEEDING, NO GASTRIC RESIDUAL ASPIRATED. ABDOMINAL BINDER INTACT. OPTIFOAM INTACT TO BILATERAL HEELS/SACRAL FOR PROPHYLAXIS. SIDE RAILS UP X3/BED IN LOWEST POSITION FOR SAFETY. FREQUENT ROUNDING FOR SAFETY/NEEDS. NAD.
[2019-12-16] MEDS: Tamsulosin 0.4mg cap ORAL SCH (21:23)
--- NOTE | 2019-12-16 21:47 | General Progress Note ---
Assessment/Plan Problem List: (1) Sepsis ICD Codes: A41.9 - Sepsis, unspecified organism SNOMED: 72408716 Qualifiers: Qualified Codes: A41.9 - Sepsis, unspecified organism; R65.20 - Severe sepsis without septic shock; N17.9 - Acute kidney failure, unspecified (2) Alzheimer's dementia ICD Codes: G30.9 - Alzheimer's disease, unspecified; F02.80 - Dementia in other diseases classified elsewhere without behavioral disturbance SNOMED: 79174295 Qualifiers: Qualified Codes: G30.9 - Alzheimer's disease, unspecified; F02.80 - Dementia in other diseases classified elsewhere without behavioral disturbance (3) Elevated LFTs ICD Codes: R94.5 - Abnormal results of liver function studies SNOMED: 390546531, 812699397 (4) Cholestasis ICD Codes: K83.1 - Obstruction of bile duct SNOMED: 15786389 (5) Hyperbilirubinemia ICD Codes: E80.6 - Other disorders of bilirubin metabolism SNOMED: 90872667 (6) Left lower lobe pneumonia ICD Codes: J18.9 - Pneumonia, unspecified organism SNOMED: 176849187 Qualifiers: Qualified Codes: J18.9 - Pneumonia, unspecified organism (7) Renal failure (ARF), acute on chronic ICD Codes: N17.9 - Acute kidney failure, unspecified; N18.9 - Chronic kidney disease, unspecified SNOMED: 900210604 Qualifiers: Qualified Codes: N17.9 - Acute kidney failure, unspecified; N18.3 - Chronic kidney disease, stage 3 (moderate) Status: progressing Assessment/Plan: sepsis pna check lft afebrile no wheezing check h/h anemia no wheezing improved lft hypernatremia azotemia Subjective ROS Limited/Unobtainable: Yes Allergies: Coded Allergies: No Known Allergies (Unverified , 03/19/17) Objective Last 24 Hour Vital Signs Date Time Temp Pulse Resp B/P (MAP) Pulse Ox O2 Delivery O2 Flow Rate FiO2 12/16/19 21:29 83 119/66 12/16/19 16:00 91 12/16/19 16:00 97.9 77 18 113/62 (79) 99 12/16/19 13:41 83 113/57 12/16/19 12:00 83 12/16/19 12:00 98.1 83 20 113/57 (75) 97 12/16/19 09:00 Nasal Cannula 3.0 12/16/19 08:00 98.2 84 20 117/53 (74) 97 12/16/19 08:00 84 12/16/19 06:22 87 127/57 12/16/19 04:00 89 12/16/19 04:00 96.9 89 18 118/82 (94) 96 12/16/19 00:00 97.0 95 18 121/64 (83) 97 12/16/19 00:00 95 12/15/19 22:23 100 127/72 Intake and Output 12/15/19 12/16/19 19:00 07:00 Intake Total 300 ml Output Total 5 ml Balance 295 ml IV Total 300 ml Estimated Blood Loss 5 ml # Voids 2 2 # Bowel Movements 1 1 Laboratory Tests 12/16/19 05:48: White Blood Count 8.0, Red Blood Count 3.36L, Hemoglobin 10.5L, Hematocrit 30.4L , Mean Corpuscular Volume 91, Mean Corpuscular Hemoglobin 31.3H, Mean Corpuscular Hemoglobin Concent 34.5, Red Cell Distribution Width 13.3, Platelet Count 211, Mean Platelet Volume 7.4, Neutrophils (%) (Auto) 74.7, Lymphocytes (% ) (Auto) 15.2L, Monocytes (%) (Auto) 7.6, Eosinophils (%) (Auto) 2.0, Basophils (%) (Auto) 0.5, Sodium Level 133L, Potassium Level 4.0, Chloride Level 99, Carbon Dioxide Level 31, Anion Gap 3L, Blood Urea Nitrogen 11, Creatinine 1.4H, Estimat Glomerular Filtration Rate , Glucose Level 171H, Osmolality 282L, Calcium Level 8.4L, Phosphorus Level 2.6, Magnesium Level 2.0, Total Bilirubin 6.2H, Direct Bilirubin 5.5H, Aspartate Amino Transf (AST/SGOT) 74H, Alanine Aminotransferase (ALT/SGPT) 41, Alkaline Phosphatase 385H, Total Protein 6.0L, Albumin 1.5L, Globulin 4.5, Albumin/Globulin Ratio 0.3L Height (Feet): 5 Height (Inches): 5.00 Weight (Pounds): 177 Respiratory/Chest: lungs clear Abdomen: soft Gurmeet Elizabeth MD Dec 16, 2019 21:47
[2019-12-17] VITALS: BP 154/81
[2019-12-17 04:00] VITALS: BP 118/62
[2019-12-17] MEDS: dilTIAZem HCl 30mg tab ORAL SCH ×3 (06:40→21:39)
[2019-12-17] MEDS: NovoLOG Insulin Flexpen SUBQ SCH ×4 (06:45→21:40)
--- NOTE | 2019-12-17 07:01 | NUR ---
NURSE NOTES: RESTED WELL, NO SIGNIFICANT CHANGE OF CONDITION NOTED THROUGHOUT THE NIGHT. SAFETY MAINTAINED. NAD.
[2019-12-17 08:00] VITALS: BP 114/66
--- NOTE | 2019-12-17 08:00 | NUR ---
NURSE NOTES: Nurse report given by AVTAR Eldridge. Patient's awake and laying in bed, eyes open spontaneously, confused, AO x 1, breathing unlabored and regular, no s/s of distress or SOB. Bed low and locked, call light within reach, side rails x 3 padded for seizure precaution, HOB > 40 for aspiration precaution. Bilateral soft wrist restraints applied on both wrists, pulse present on bilateral radial, no skin tear/trauma present at site. IV is running fluid, no s/s of tenderness or infiltration. PEG tube presents, running Glucerna 1.2 at 60ml, patient tolerated well. Will continue to monitor closely.
[2019-12-17] MEDS: Meropenem 1 GM in NS 55 ML IVPB SCH ×2 (08:55→21:39)
[2019-12-17] MEDS: Docusate 100mg cap ORAL SCH ×3 (08:56→17:20)
--- NOTE | 2019-12-17 09:35 | NUR ---
CASE MANAGEMENT: REVIEW 12/17/2019 SI:POD# 1 PEG PLACEMENT SEPSIS WITH LACTIC ACIDEMIA . ACUTE ON CHRONIC RENAL FAILURE . HIGH BILIRUBIN . JAUNDICE . PNA . (+) VRE 98.1 91 20 114/66 98% NC 3L IS:IV MEROPENEM BID IVF D5@100ML/HR SEROQUEL PO Q6HR RISPERDAL PO BID ALBUTEROL Q4HR/PRN NOVOLOG SQ AC&HS CARDIZEM PO Q8H FLOMAX PO QHS PROTONIX PO BID K-DUR PO BID \: 2E TELE UNIT DCP: BACK TO [facility] WHEN STABLE PLAN: TUBE FEEDING GOAL = 60ML MONITOR OFF RESTRAINTS
--- NOTE | 2019-12-17 10:13 | Cardiac Electrophysiology PN ---
Assessment/Plan Assessment/Plan 1. Hypertension. On Cardizem 30 mg every 8 hours via PEG. 2. Shortness of breath secondary to pneumonia. Echo Nl EF 3. Nonsustained VT 5 beats. No further after K was replaced. Nl EF 4. Pneumonia, on Abx per Dr. Barth. 5. Renal failure. 6. Lactic acidosis. 7. Hyperbilirubinemia with total bilirubin of >10. Fu Dr Escalante. Bilirubin down to 5.5 MRI abdomen couldn't be done as unable to lay flat S/P CT abdomen and Pelvis. FU Dr. Escalante Suspect hepatitis (? autoimmune, ? 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, ? cholestasis due to sepsis) No Biliary obstruction on abdominal ultrasound CT abdomen Suspected acute cholecystitis with wall thickening and ill- definition slight dilatation of the gallbladder. No obvious gallstones seen on this examination. FU Dr Mcnulty 8. Renal failure with BUN of 35 and creatinine of 2.0. 9. Dysphagia, S/P PEG 12/15/19 10. Dementia. DW RN Subjective Subjective In SR. No more VT S/P CT abdomen and Pelvis for high bilirubin. S/P PEG by Dr Escalante 12/15/19 Still on iv Abx Objective Last 24 Hour Vital Signs Date Time Temp Pulse Resp B/P (MAP) Pulse Ox O2 Delivery O2 Flow Rate FiO2 12/17/19 09:00 Nasal Cannula 3.0 12/17/19 08:00 90 12/17/19 08:00 90 16 97 Nasal Cannula 3.0 32 12/17/19 08:00 97 Nasal Cannula 3.0 32 12/17/19 08:00 98.1 91 20 114/66 (82) 98 12/17/19 06:40 88 131/66 12/17/19 04:00 89 12/17/19 04:00 97.5 88 19 118/62 (80) 96 12/17/19 00:00 83 12/17/19 00:00 98.1 84 18 154/81 (105) 95 12/16/19 21:29 83 119/66 12/16/19 21:00 83 12/16/19 21:00 Nasal Cannula 3.0 12/16/19 20:06 81 18 97 Nasal Cannula 3.0 32 12/16/19 20:06 97 Nasal Cannula 3.0 32 12/16/19 20:00 98.2 86 19 135/83 (100) 97 12/16/19 16:00 91 12/16/19 16:00 97.9 77 18 113/62 (79) 99 12/16/19 13:41 83 113/57 12/16/19 12:00 83 12/16/19 12:00 98.1 83 20 113/57 (75) 97 Intake and Output 12/16/19 12/17/19 19:00 07:00 Intake Total 160 ml 1755 ml Balance 160 ml 1755 ml Free Water 60 ml IV Total 100 ml 1155 ml Tube Feeding 60 ml 540 ml # Voids 3 1 # Bowel Movements 1 1 Objective HEAD AND NECK: Shows no JVD.Sclera icteric. LUNGS: Decreased breath sounds. CARDIOVASCULAR: Shows regular S1 and S2 with no gallop. ABDOMEN: Soft.S/P PEG EXTREMITIES: No pitting edema. Kyle Reynoso MD Dec 17, 2019 10:13
[2019-12-17 10:23] LABS: BASOPHILS % (AUTO) 0.8 % (0.0-2.0); EOSINOPHILS % (AUTO) 1.6 % (0.0-3.0); HEMATOCRIT 31.3 % (42.0-52.0); HEMOGLOBIN 10.5 G/DL (14.2-18.0); LYMPHOCYTES % (AUTO) 17.5 % (20.0-45.0); MEAN CORPUSCULAR VOLUME 92 FL (80-99); MONOCYTES % (AUTO) 10.1 % (1.0-10.0); PLATELET COUNT 258 K/UL (150-450); RED BLOOD COUNT 3.41 M/UL (4.70-6.10); RED CELL DISTRIBUTION WIDTH 13.5 % (11.6-14.8); WHITE BLOOD COUNT 8.6 K/UL (4.8-10.8)
--- NOTE | 2019-12-17 10:29 | General Progress Note ---
Assessment/Plan Status: progressing Assessment/Plan: Problems: (1) Elevated LFTs ICD Codes: R94.5 - Abnormal results of liver function studies SNOMED: 646968800, 876825009 (2) Biliary obstruction ICD Codes: K83.1 - Obstruction of bile duct SNOMED: 771456347 (3) Cholestasis ICD Codes: K83.1 - Obstruction of bile duct SNOMED: 72828056 (4) Hyperbilirubinemia ICD Codes: E80.6 - Other disorders of bilirubin metabolism Assessment/Plan This is a 89-year-old male patient that presented with hyperbilirubinemia with no transaminitis 2/2 to cholestasis possibly due to meds Vs sepsis now stable and trending down abdominal US reviewed hepatitis panel negative repeat labs Avoid hepatotoxic's Repeat liver function test for tomorrow s/p PEG, on GTF We will follow along on a daily basis with any additional recommendations Subjective ROS Limited/Unobtainable: No Allergies: Coded Allergies: No Known Allergies (Unverified , 03/19/17) Objective Last 24 Hour Vital Signs Date Time Temp Pulse Resp B/P (MAP) Pulse Ox O2 Delivery O2 Flow Rate FiO2 12/17/19 09:00 Nasal Cannula 3.0 12/17/19 08:00 90 12/17/19 08:00 90 16 97 Nasal Cannula 3.0 32 12/17/19 08:00 97 Nasal Cannula 3.0 32 12/17/19 08:00 98.1 91 20 114/66 (82) 98 12/17/19 06:40 88 131/66 12/17/19 04:00 89 12/17/19 04:00 97.5 88 19 118/62 (80) 96 12/17/19 00:00 83 12/17/19 00:00 98.1 84 18 154/81 (105) 95 12/16/19 21:29 83 119/66 12/16/19 21:00 83 12/16/19 21:00 Nasal Cannula 3.0 12/16/19 20:06 81 18 97 Nasal Cannula 3.0 32 12/16/19 20:06 97 Nasal Cannula 3.0 32 12/16/19 20:00 98.2 86 19 135/83 (100) 97 12/16/19 16:00 91 12/16/19 16:00 97.9 77 18 113/62 (79) 99 12/16/19 13:41 83 113/57 12/16/19 12:00 83 12/16/19 12:00 98.1 83 20 113/57 (75) 97 Intake and Output 12/16/19 12/17/19 19:00 07:00 Intake Total 160 ml 1755 ml Balance 160 ml 1755 ml Free Water 60 ml IV Total 100 ml 1155 ml Tube Feeding 60 ml 540 ml # Voids 3 1 # Bowel Movements 1 1 Laboratory Tests 12/17/19 10:00: White Blood Count 8.6, Red Blood Count 3.41L, Hemoglobin 10.5L, Hematocrit 31.3L , Mean Corpuscular Volume 92, Mean Corpuscular Hemoglobin 30.8, Mean Corpuscular Hemoglobin Concent 33.5, Red Cell Distribution Width 13.5, Platelet Count 258, Mean Platelet Volume 6.9, Neutrophils (%) (Auto) 70.0, Lymphocytes (% ) (Auto) 17.5L, Monocytes (%) (Auto) 10.1H, Eosinophils (%) (Auto) 1.6, Basophils (%) (Auto) 0.8, Sodium Level [Pending], Potassium Level [Pending], Chloride Level [Pending], Carbon Dioxide Level [Pending], Blood Urea Nitrogen [ Pending], Creatinine [Pending], Estimat Glomerular Filtration Rate [Pending], Glucose Level [Pending], Calcium Level [Pending], Phosphorus Level [Pending], Magnesium Level [Pending], Total Bilirubin [Pending], Aspartate Amino Transf ( AST/SGOT) [Pending], Alanine Aminotransferase (ALT/SGPT) [Pending], Alkaline Phosphatase [Pending], Total Protein [Pending], Albumin [Pending], Globulin [ Pending] Height (Feet): 5 Height (Inches): 5.00 Weight (Pounds): 177 General Appearance: lethargic EENT: normal ENT inspection Neck: supple Cardiovascular: normal rate Respiratory/Chest: decreased breath sounds Abdomen: normal bowel sounds, non tender, soft Extremities: non-tender Bladimir Escalante MD Dec 17, 2019 10:29
[2019-12-17 10:44] LABS: ALANINE AMINOTRANSFERASE 43 U/L (12-78); ALBUMIN 1.5 G/DL (3.4-5.0); ALBUMIN/GLOBULIN RATIO 0.3 (1.0-2.7); ALKALINE PHOSPHATASE 422 U/L (46-116); ANION GAP 3 mmol/L (5-15); ASPARTATE AMINO TRANSFERASE 88 U/L (15-37); BILIRUBIN,TOTAL 5.2 MG/DL (0.2-1.0); BLOOD UREA NITROGEN 13 mg/dL (7-18); CALCIUM 8.6 MG/DL (8.5-10.1); CARBON DIOXIDE 33 MMOL/L (21-32); CHLORIDE 98 MMOL/L (98-107); CREATININE 1.4 MG/DL (0.55-1.30); PHOSPHORUS 2.7 MG/DL (2.5-4.9); POTASSIUM 4.6 MMOL/L (3.5-5.1); SODIUM 134 MMOL/L (136-145)
[2019-12-17 10:45] LABS: BILIRUBIN,DIRECT 4.8 MG/DL (0.0-0.3)
--- NOTE | 2019-12-17 10:56 | Infectious Diseases Prog Note ---
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, hypertension, Alzheimer dementia, acute renal failure, improving Hypernatremia Acalculous cholecystitis Atelectasis/ Pneumonia RECOMMENDATION: Continue Meropenem Subjective ROS Limited/Unobtainable: Yes Constitutional: Denies: fever Neurologic: Reports: confusion, other - on restraint Allergies: Coded Allergies: No Known Allergies (Unverified , 03/19/17) Objective Vital Signs Last 24 Hour Vital Signs Date Time Temp Pulse Resp B/P (MAP) Pulse Ox O2 Delivery O2 Flow Rate FiO2 12/17/19 09:00 Nasal Cannula 3.0 12/17/19 08:00 90 12/17/19 08:00 90 16 97 Nasal Cannula 3.0 32 12/17/19 08:00 97 Nasal Cannula 3.0 32 12/17/19 08:00 98.1 91 20 114/66 (82) 98 12/17/19 06:40 88 131/66 12/17/19 04:00 89 12/17/19 04:00 97.5 88 19 118/62 (80) 96 12/17/19 00:00 83 12/17/19 00:00 98.1 84 18 154/81 (105) 95 12/16/19 21:29 83 119/66 12/16/19 21:00 83 12/16/19 21:00 Nasal Cannula 3.0 12/16/19 20:06 81 18 97 Nasal Cannula 3.0 32 12/16/19 20:06 97 Nasal Cannula 3.0 32 12/16/19 20:00 98.2 86 19 135/83 (100) 97 12/16/19 16:00 91 12/16/19 16:00 97.9 77 18 113/62 (79) 99 12/16/19 13:41 83 113/57 12/16/19 12:00 83 12/16/19 12:00 98.1 83 20 113/57 (75) 97 Height (Feet): 5 Height (Inches): 5.00 Weight (Pounds): 177 General Appearance: no acute distress HEENT: mucous membranes moist Respiratory/Chest: lungs clear Cardiovascular: normal rate Abdomen: other - edema of hands Neurologic/Psychiatric: disoriented Laboratory Tests Test 12/17/19 10:00 White Blood Count 8.6 K/UL (4.8-10.8) Red Blood Count 3.41 M/UL (4.70-6.10) L Hemoglobin 10.5 G/DL (14.2-18.0) L Hematocrit 31.3 % (42.0-52.0) L Mean Corpuscular Volume 92 FL (80-99) Mean Corpuscular Hemoglobin 30.8 PG (27.0-31.0) Mean Corpuscular Hemoglobin Concent 33.5 G/DL (32.0-36.0) Red Cell Distribution Width 13.5 % (11.6-14.8) Platelet Count 258 K/UL (150-450) Mean Platelet Volume 6.9 FL (6.5-10.1) Neutrophils (%) (Auto) 70.0 % (45.0-75.0) Lymphocytes (%) (Auto) 17.5 % (20.0-45.0) L Monocytes (%) (Auto) 10.1 % (1.0-10.0) H Eosinophils (%) (Auto) 1.6 % (0.0-3.0) Basophils (%) (Auto) 0.8 % (0.0-2.0) Sodium Level 134 MMOL/L (136-145) L Potassium Level 4.6 MMOL/L (3.5-5.1) Chloride Level 98 MMOL/L (98-107) Carbon Dioxide Level 33 MMOL/L (21-32) H Anion Gap 3 mmol/L (5-15) L Blood Urea Nitrogen 13 mg/dL (7-18) Creatinine 1.4 MG/DL (0.55-1.30) H Estimat Glomerular Filtration Rate mL/min (>60) Glucose Level 178 MG/DL (74-106) H Calcium Level 8.6 MG/DL (8.5-10.1) Phosphorus Level 2.7 MG/DL (2.5-4.9) Magnesium Level 1.6 MG/DL (1.8-2.4) L Total Bilirubin 5.2 MG/DL (0.2-1.0) H Direct Bilirubin 4.8 MG/DL (0.0-0.3) H Aspartate Amino Transf (AST/SGOT) 88 U/L (15-37) H Alanine Aminotransferase (ALT/SGPT) 43 U/L (12-78) Alkaline Phosphatase 422 U/L (46-116) H Total Protein 6.3 G/DL (6.4-8.2) L Albumin 1.5 G/DL (3.4-5.0) L Globulin 4.8 g/dL Albumin/Globulin Ratio 0.3 (1.0-2.7) L Current Medications Medications (Trade) Dose Ordered Sig/Filemon Route PRN Reason Start Time Stop Time Status Last Admin Dose Admin Acetaminophen (Tylenol) 325 mg Q6H PRN ORAL Mild Pain/Temp > 100.5 12/11/19 03:30 01/06/20 09:29 Acetaminophen (Tylenol) 650 mg Q4H PRN RECTAL Mild Pain (Pain Scale 1-3) 12/11/19 04:15 01/09/20 00:14 Albuterol/ Ipratropium (Albuterol/ Ipratropium) 3 ml Q4H PRN HHN Shortness of Breath 12/12/19 21:45 12/17/19 21:44 12/12/19 22:06 Dextrose 1,000 ml @ 100 mls/hr Q10H IV 12/11/19 02:45 01/08/20 08:29 12/17/19 08:56 Dextrose (Dextrose 50%) 25 ml Q30M PRN IV Hypoglycemia 12/11/19 03:15 01/05/20 11:44 Dextrose (Dextrose 50%) 50 ml Q30M PRN IV Hypoglycemia 12/11/19 03:15 01/05/20 11:44 Diltiazem HCl (Cardizem) 30 mg EVERY 8 HOURS ORAL 12/11/19 06:00 01/05/20 13:59 12/17/19 06:40 Docusate Sodium (Colace) 100 mg TID ORAL 12/11/19 09:00 01/05/20 17:59 12/17/19 08:56 Insulin Aspart (NovoLOG) BEFORE MEALS AND HS SUBQ 12/11/19 06:30 01/05/20 16:29 12/17/19 06:45 Meropenem 1 gm/ Sodium Chloride 55 ml @ 110 mls/hr Q12HR IVPB 12/14/19 11:00 12/19/19 10:59 12/17/19 08:55 Pantoprazole (Protonix) 40 mg BID ORAL 12/11/19 09:00 01/05/20 14:44 12/17/19 08:56 Potassium Chloride (K-Dur) 40 meq TWICE A DAY ORAL 12/11/19 09:00 01/08/20 09:59 12/17/19 08:56 Quetiapine Fumarate (SEROqueL) 25 mg EVERY 6 HOURS PRN ORAL For Anxiety 12/11/19 03:00 01/09/20 02:59 12/16/19 08:36 Risperidone (RisperDAL) 0.5 mg Q12HR ORAL 12/11/19 09:00 01/05/20 08:59 12/17/19 08:56 Tamsulosin HCl (Flomax) 0.4 mg BEDTIME ORAL 12/11/19 21:00 01/05/20 20:59 12/16/19 21:23 Enrike Hadley MD Dec 17, 2019 10:56
--- NOTE | 2019-12-17 11:07 | Surgery Progress Note ---
Surgery Progress Note Subjective Additional Comments no acute events comfortable appearing lft's improving Objective Last 24 Hour Vital Signs Date Time Temp Pulse Resp B/P (MAP) Pulse Ox O2 Delivery O2 Flow Rate FiO2 12/17/19 09:00 Nasal Cannula 3.0 12/17/19 08:00 90 12/17/19 08:00 90 16 97 Nasal Cannula 3.0 32 12/17/19 08:00 97 Nasal Cannula 3.0 32 12/17/19 08:00 98.1 91 20 114/66 (82) 98 12/17/19 06:40 88 131/66 12/17/19 04:00 89 12/17/19 04:00 97.5 88 19 118/62 (80) 96 12/17/19 00:00 83 12/17/19 00:00 98.1 84 18 154/81 (105) 95 12/16/19 21:29 83 119/66 12/16/19 21:00 83 12/16/19 21:00 Nasal Cannula 3.0 12/16/19 20:06 81 18 97 Nasal Cannula 3.0 32 12/16/19 20:06 97 Nasal Cannula 3.0 32 12/16/19 20:00 98.2 86 19 135/83 (100) 97 12/16/19 16:00 91 12/16/19 16:00 97.9 77 18 113/62 (79) 99 12/16/19 13:41 83 113/57 12/16/19 12:00 83 12/16/19 12:00 98.1 83 20 113/57 (75) 97 I&O Intake and Output 12/16/19 12/17/19 19:00 07:00 Intake Total 160 ml 1755 ml Balance 160 ml 1755 ml Free Water 60 ml IV Total 100 ml 1155 ml Tube Feeding 60 ml 540 ml # Voids 3 1 # Bowel Movements 1 1 Dressing: other Wound: other Cardiovascular: RSR Respiratory: decreased breath sounds Abdomen: soft, present bowel sounds Extremities: no tenderness, no cyanosis Laboratory Tests Test 12/17/19 10:00 White Blood Count 8.6 K/UL (4.8-10.8) Red Blood Count 3.41 M/UL (4.70-6.10) L Hemoglobin 10.5 G/DL (14.2-18.0) L Hematocrit 31.3 % (42.0-52.0) L Mean Corpuscular Volume 92 FL (80-99) Mean Corpuscular Hemoglobin 30.8 PG (27.0-31.0) Mean Corpuscular Hemoglobin Concent 33.5 G/DL (32.0-36.0) Red Cell Distribution Width 13.5 % (11.6-14.8) Platelet Count 258 K/UL (150-450) Mean Platelet Volume 6.9 FL (6.5-10.1) Neutrophils (%) (Auto) 70.0 % (45.0-75.0) Lymphocytes (%) (Auto) 17.5 % (20.0-45.0) L Monocytes (%) (Auto) 10.1 % (1.0-10.0) H Eosinophils (%) (Auto) 1.6 % (0.0-3.0) Basophils (%) (Auto) 0.8 % (0.0-2.0) Sodium Level 134 MMOL/L (136-145) L Potassium Level 4.6 MMOL/L (3.5-5.1) Chloride Level 98 MMOL/L (98-107) Carbon Dioxide Level 33 MMOL/L (21-32) H Anion Gap 3 mmol/L (5-15) L Blood Urea Nitrogen 13 mg/dL (7-18) Creatinine 1.4 MG/DL (0.55-1.30) H Estimat Glomerular Filtration Rate mL/min (>60) Glucose Level 178 MG/DL (74-106) H Calcium Level 8.6 MG/DL (8.5-10.1) Phosphorus Level 2.7 MG/DL (2.5-4.9) Magnesium Level 1.6 MG/DL (1.8-2.4) L Total Bilirubin 5.2 MG/DL (0.2-1.0) H Direct Bilirubin 4.8 MG/DL (0.0-0.3) H Aspartate Amino Transf (AST/SGOT) 88 U/L (15-37) H Alanine Aminotransferase (ALT/SGPT) 43 U/L (12-78) Alkaline Phosphatase 422 U/L (46-116) H Total Protein 6.3 G/DL (6.4-8.2) L Albumin 1.5 G/DL (3.4-5.0) L Globulin 4.8 g/dL Albumin/Globulin Ratio 0.3 (1.0-2.7) L Plan Problems: (1) Sepsis Assessment & Plan: 89-year-old male with leukocytosis, fevers, tachycardia, abnormal labs. Abdominal ultrasound nondiagnostic MRCP unable to tolerate - eval for ERCP given condition appreciate GI input in discussion with GI likely believed to be related to hepatic insufficiency Continue IV antibiotics per infectious disease No acute surgical invention planned IV fluids Trend labs Resuscitation CT evaluated. Noted abnormal gallbladder with thickened wall and pericholecystic fluid indicative of potential cholecystitis. Biliary tract without dilatation on CT. LFTs slightly improving. Given significant abnormal LFTs including bilirubin, no stones seen on CT, ultrasound findings, and new finding of potentially acute cholecystitis still unlikely for such abnormal bilirubin findings based on just cholecystitis alone without biliary obstruction. Unfortunately people unable to obtain MRCP therefore plan for EUS/ ERCP s/p discussed with GI. Hold on surgical intervention at this time given patient's age comorbidities and high risk surgery given above labs improving stable We will follow with recommendations Thank you for let me participate in patient's care (2) Biliary obstruction Assessment & Plan: Findings: The study was limited due to bowel gas body habitus. The liver is mildly heterogeneous with questionable surface nodularity. Doppler interrogation of the main portal vein shows patency with hepatopedal, monophasic flow. There is no biliary ductal dilatation identified. Gallbladder is grossly unremarkable. There demonstrated part of the pancreas, aorta and IVC show no obvious abnormalities. The structures are poorly seen. Both kidneys are poorly seen. There is no obvious hydronephrosis. IMPRESSION: No acute findings Very limited study Gallbladder is distended, but there are no gallstones and no wall thickening demonstrated. Negative for dilated bile ducts Equivocally mildly increased renal echogenicity, if real could indicate medical renal disease. Negative for evidence of hydronephrosis Gallbladder is abnormal. Gallbladder wall is thickened. There is pericholecystic stranding and ill-definition of the gallbladder wall. Findings concerning for cholecystitis. No obvious stones are seen on this exam within the gallbladder. There is no biliary duct dilatation identified. There is interposition of the hepatic flexure which resides between the diaphragm and the anterior part of the liver. There are small perihepatic nodes present.. (3) Elevated LFTs Ajit Mcnulty Dec 17, 2019 11:07
--- NOTE | 2019-12-17 11:30 | NUR ---
NURSE NOTES: Today AM shift, primary nurse and BARREL BUILDER constantly changed the patient because patient is incontinent. Noticed that sacral wound has partial thickness injury and notified wound nurse to double check. Patient was assessed by Wound nurse and primary nurse at bedside and Wound nurse measured that there is sacral open pressure ulcer stage 2: 1.7cm length to 1.5cm width. Wound nurse stated patient did not have it yesterday morning when she assessed. Primary nurse was endorsed by previous shift nurse that skin is intact and sacral redness only. Wound was measured, applied triad cream and optifoam dressing again. Notified Dr. Elizabeth regarding the incident.
--- NOTE | 2019-12-17 11:42 | Nephrology Progress Note ---
Assessment/Plan Problem List: (1) Renal failure (ARF), acute on chronic (2) Alzheimer's dementia (3) Sepsis (4) UTI (urinary tract infection) (5) High bilirubin Assessment Acute on Chronic renal failure- CHF- Past echo 55% EjFx Sepsis, High Lactate- Leukocytosis Left lower lobe pneumonia Alzheimer's dementia UTI (urinary tract infection) Hyperglycemia, DM II Plan PEG 2/5 mag supplement as needed 2D echo noted KCL IV and Po as needed slow hydrate- D5w monitor renal parameters correct electrolytes BP and BS in check per orders Subjective ROS Limited/Unobtainable: No Constitutional: Reports: malaise, weakness Objective Objective Last 24 Hour Vital Signs Date Time Temp Pulse Resp B/P (MAP) Pulse Ox O2 Delivery O2 Flow Rate FiO2 12/17/19 09:00 Nasal Cannula 3.0 12/17/19 08:00 90 12/17/19 08:00 90 16 97 Nasal Cannula 3.0 32 12/17/19 08:00 97 Nasal Cannula 3.0 32 12/17/19 08:00 98.1 91 20 114/66 (82) 98 12/17/19 06:40 88 131/66 12/17/19 04:00 89 12/17/19 04:00 97.5 88 19 118/62 (80) 96 12/17/19 00:00 83 12/17/19 00:00 98.1 84 18 154/81 (105) 95 12/16/19 21:29 83 119/66 12/16/19 21:00 83 12/16/19 21:00 Nasal Cannula 3.0 12/16/19 20:06 81 18 97 Nasal Cannula 3.0 32 12/16/19 20:06 97 Nasal Cannula 3.0 32 12/16/19 20:00 98.2 86 19 135/83 (100) 97 12/16/19 16:00 91 12/16/19 16:00 97.9 77 18 113/62 (79) 99 12/16/19 13:41 83 113/57 12/16/19 12:00 83 12/16/19 12:00 98.1 83 20 113/57 (75) 97 Intake and Output 12/16/19 12/17/19 18:59 06:59 Intake Total 1915 ml Balance 1915 ml Free Water 60 ml IV Total 1255 ml Tube Feeding 600 ml # Voids 3 1 # Bowel Movements 1 1 Laboratory Tests 12/17/19 10:00: White Blood Count 8.6, Red Blood Count 3.41L, Hemoglobin 10.5L, Hematocrit 31.3L , Mean Corpuscular Volume 92, Mean Corpuscular Hemoglobin 30.8, Mean Corpuscular Hemoglobin Concent 33.5, Red Cell Distribution Width 13.5, Platelet Count 258, Mean Platelet Volume 6.9, Neutrophils (%) (Auto) 70.0, Lymphocytes (% ) (Auto) 17.5L, Monocytes (%) (Auto) 10.1H, Eosinophils (%) (Auto) 1.6, Basophils (%) (Auto) 0.8, Sodium Level 134L, Potassium Level 4.6, Chloride Level 98, Carbon Dioxide Level 33H, Anion Gap 3L, Blood Urea Nitrogen 13, Creatinine 1.4H, Estimat Glomerular Filtration Rate , Glucose Level 178H, Calcium Level 8.6, Phosphorus Level 2.7, Magnesium Level 1.6L, Total Bilirubin 5.2H, Direct Bilirubin 4.8H, Aspartate Amino Transf (AST/SGOT) 88H, Alanine Aminotransferase (ALT/SGPT) 43, Alkaline Phosphatase 422H, Total Protein 6.3L, Albumin 1.5L, Globulin 4.8, Albumin/Globulin Ratio 0.3L Height (Feet): 5 Height (Inches): 5.00 Weight (Pounds): 177 General Appearance: no apparent distress, lethargic Neck: limited range of motion Cardiovascular: tachycardia Respiratory/Chest: decreased breath sounds Abdomen: distended, other - PEG + Objective no change Jose Ashraf MD Dec 17, 2019 11:42
[2019-12-17 12:00] VITALS: BP 127/58
--- NOTE | 2019-12-17 12:29 | Pulmonology Progress Note ---
Assessment/Plan Assessment/Plan IMPRESSION: 1. RLL pneumonia. Reviewed CT; pneumonia demonstrated R lung base. 2. Sepsis with lactic acidemia. 3. Acute renal insufficiency. 4. History of CHF. 5. Dementia. 6. S/P DISCUSSION: Continue antibiotics. I will follow carefully as respiratory documentum consultant. GI/surgery following. Currently saturating well on low flow O2 Kevin Lincoln M.D. Subjective Interval Events: S/P PEG Constitutional: Reports: no symptoms HEENT: Repors: no symptoms Respiratory: Reports: no symptoms Cardiovascular: Reports: no symptoms Gastrointestinal/Abdominal: Reports: no symptoms Genitourinary: Reports: no symptoms Allergies: Coded Allergies: No Known Allergies (Unverified , 03/19/17) Objective Last 24 Hour Vital Signs Date Time Temp Pulse Resp B/P (MAP) Pulse Ox O2 Delivery O2 Flow Rate FiO2 12/17/19 09:00 Nasal Cannula 3.0 12/17/19 08:00 90 12/17/19 08:00 90 16 97 Nasal Cannula 3.0 32 12/17/19 08:00 97 Nasal Cannula 3.0 32 12/17/19 08:00 98.1 91 20 114/66 (82) 98 12/17/19 06:40 88 131/66 12/17/19 04:00 89 12/17/19 04:00 97.5 88 19 118/62 (80) 96 12/17/19 00:00 83 12/17/19 00:00 98.1 84 18 154/81 (105) 95 12/16/19 21:29 83 119/66 12/16/19 21:00 83 12/16/19 21:00 Nasal Cannula 3.0 12/16/19 20:06 81 18 97 Nasal Cannula 3.0 32 12/16/19 20:06 97 Nasal Cannula 3.0 32 12/16/19 20:00 98.2 86 19 135/83 (100) 97 12/16/19 16:00 91 12/16/19 16:00 97.9 77 18 113/62 (79) 99 12/16/19 13:41 83 113/57 Intake and Output 12/16/19 12/17/19 19:00 07:00 Intake Total 160 ml 1755 ml Balance 160 ml 1755 ml Free Water 60 ml IV Total 100 ml 1155 ml Tube Feeding 60 ml 540 ml # Voids 3 1 # Bowel Movements 1 1 General Appearance: no acute distress HEENT: normocephalic Respiratory/Chest: chest wall non-tender, lungs clear Cardiovascular: normal peripheral pulses, normal rate Abdomen: normal bowel sounds Extremities: no cyanosis Laboratory Tests 12/17/19 10:00: White Blood Count 8.6, Red Blood Count 3.41L, Hemoglobin 10.5L, Hematocrit 31.3L , Mean Corpuscular Volume 92, Mean Corpuscular Hemoglobin 30.8, Mean Corpuscular Hemoglobin Concent 33.5, Red Cell Distribution Width 13.5, Platelet Count 258, Mean Platelet Volume 6.9, Neutrophils (%) (Auto) 70.0, Lymphocytes (% ) (Auto) 17.5L, Monocytes (%) (Auto) 10.1H, Eosinophils (%) (Auto) 1.6, Basophils (%) (Auto) 0.8, Sodium Level 134L, Potassium Level 4.6, Chloride Level 98, Carbon Dioxide Level 33H, Anion Gap 3L, Blood Urea Nitrogen 13, Creatinine 1.4H, Estimat Glomerular Filtration Rate , Glucose Level 178H, Calcium Level 8.6, Phosphorus Level 2.7, Magnesium Level 1.6L, Total Bilirubin 5.2H, Direct Bilirubin 4.8H, Aspartate Amino Transf (AST/SGOT) 88H, Alanine Aminotransferase (ALT/SGPT) 43, Alkaline Phosphatase 422H, Total Protein 6.3L, Albumin 1.5L, Globulin 4.8, Albumin/Globulin Ratio 0.3L Current Medications Medications (Trade) Dose Ordered Sig/Filemon Route PRN Reason Start Time Stop Time Status Last Admin Dose Admin Acetaminophen (Tylenol) 325 mg Q6H PRN ORAL Mild Pain/Temp > 100.5 12/11/19 03:30 01/06/20 09:29 Acetaminophen (Tylenol) 650 mg Q4H PRN RECTAL Mild Pain (Pain Scale 1-3) 12/11/19 04:15 01/09/20 00:14 Albuterol/ Ipratropium (Albuterol/ Ipratropium) 3 ml Q4H PRN HHN Shortness of Breath 2/2/20 21:45 12/17/19 21:44 12/12/19 22:06 Dextrose 1,000 ml @ 100 mls/hr Q10H IV 12/11/19 02:45 01/08/20 08:29 12/17/19 08:56 Dextrose (Dextrose 50%) 25 ml Q30M PRN IV Hypoglycemia 12/11/19 03:15 01/05/20 11:44 Dextrose (Dextrose 50%) 50 ml Q30M PRN IV Hypoglycemia 12/11/19 03:15 01/05/20 11:44 Diltiazem HCl (Cardizem) 30 mg EVERY 8 HOURS ORAL 12/11/19 06:00 01/05/20 13:59 12/17/19 06:40 Docusate Sodium (Colace) 100 mg TID ORAL 12/11/19 09:00 01/05/20 17:59 12/17/19 08:56 Insulin Aspart (NovoLOG) BEFORE MEALS AND HS SUBQ 12/11/19 06:30 01/05/20 16:29 12/17/19 06:45 Meropenem 1 gm/ Sodium Chloride 55 ml @ 110 mls/hr Q12HR IVPB 12/14/19 11:00 12/19/19 10:59 12/17/19 08:55 Pantoprazole (Protonix) 40 mg BID ORAL 12/11/19 09:00 01/05/20 14:44 12/17/19 08:56 Potassium Chloride (K-Dur) 40 meq TWICE A DAY ORAL 12/11/19 09:00 01/08/20 09:59 12/17/19 08:56 Quetiapine Fumarate (SEROqueL) 25 mg EVERY 6 HOURS PRN ORAL For Anxiety 12/11/19 03:00 01/09/20 02:59 12/16/19 08:36 Risperidone (RisperDAL) 0.5 mg Q12HR ORAL 12/11/19 09:00 01/05/20 08:59 12/17/19 08:56 Tamsulosin HCl (Flomax) 0.4 mg BEDTIME ORAL 12/11/19 21:00 01/05/20 20:59 12/16/19 21:23 Kevin Lincoln MD Dec 17, 2019 12:29
--- NOTE | 2019-12-17 14:05 | NUR ---
RD ASSESSMENT & RECOMMENDATIONS SEE CARE ACTIVITY FOR COMPLETE ASSESSMENT DAILY ESTIMATED NEEDS: Needs based on DM, cardiac, wound 67 kg adj 25-30 kcals/kg total kcals 1.25-1.5 g protein/kg 83-100 g total protein 20-25 mL/kg total fluid mLs NUTRITION DIAGNOSIS: * Swallowing difficulty R/T dysphagia as evidenced by pt on liquify pureed, NTL, pt appears to be high risk for aspiration even on the lowest dysphagia diet, s/p insertion and self pulling out NGT, now s/p PEG placement, on GT feeds. * Altered nutrition related lab values r/t diabetes, clinical condition as evidenced by elev BGs (178 172), A1C of 7.2, low phos (2.0 -> wnl), low K (3.2-> wnl), low mag (1.6), elev T bili (5.7 ->9.1-> 5.2). CURRENT TF:Glucerna 1.2 @ 60ml/hr x 24 hrs ENTERAL NUTRITION RECOMMENDATIONS: Glucerna 1.2 @ 60ml/hr x 24 hrs to provide 1440ml, 1728kccal, 86g prot, 1159ml free water * Maintain current TF: meets 100% est kcal/prot needs * HOB over 30 degrees * Without IVF, water flush 120ml q 4 hrs. ADDITIONAL RECOMMENDATIONS: * Calibrated bed scale wt (bedscale 186.5lbs vs EMR wt 177bs) * DC D5 IVF: TF now @ goal, for improved BG control * Monitor lytes closely, replete as needed (low mag) * Wound healing: Efren 1pkt BID w/ TF .
[2019-12-17 16:00] VITALS: BP 120/56
--- NOTE | 2019-12-17 16:19 | NUR ---
*-* INSURANCE *-* ALL CLINICALS AND REVIEWS HAVE BEEN FAXED TO: KENNETH HENRIQUEZ CM: BRANDI # [phone] FAX# [phone]
--- NOTE | 2019-12-17 16:45 | Hematology/Onc Progress Note ---
Assessment/Plan Assessment/Plan Assessment and Recs: # Thrombocytopenia -- is likely related to sepsis from pna, currently in 100- 150 range --> smear has been ordered and reviewed --> meds are noted --> okay to continue on abx --> plt trend 169-->148k-->141-->128-->135-->163-->258 --> hold off steriods --> hep and hiv NEG --> us abd negative for cirrhosis/hsm # Leukocytosis due to pna/lactic acidosis --> as per above --> smear has been reviewed --> as per id, on vanc/zosyn-->zosyn-->ligia --> wbc trend: 16.7 -->14.1-->0.8-->7-->8.6 --> PENDING eus/ercp # Anemia of chronic disease --> in this case due to hemodilution --> hgb trend: 12.3-->11.8-->10.5 # Hyperbilirubinemia --> gi aware as per their recs --> mri as needed --> eus/ercp per surg # AMS --> as per psych, on soft wr # Dysphagia -->2/5 s/p peg # Cholestasis # Biliary obstruction # Elevated LFTs # PNA/Sepsis Appreciate consultation and will tasha Rn. Subjective Allergies: Coded Allergies: No Known Allergies (Unverified , 03/19/17) Subjective 12/08: awake, no acute events, wbc 16.7, afebrile, on abx, us abd negative 12/09: no acute distress, lft's worsening, wbc improving, nc 3l 12/10: labs noted, plt remains stable, is unable to have mri, no bleeding 12/12: bilat wrist restraints, wbc improved, remains on zosyn 12/13: on ngt feeds and also abx, with restraints, remains confused 12/14: remains on soft restraints, seen by psych, no bleedng noted, smear reviewed 12/15: no major events, no bleeding, labs noted, wbc better 12/16: no events, labs noted, on abx, peg placed yesterday, no bleeding 12/17: confused, no acute events, nc, remains on ligia Objective Objective Current Medications Medications (Trade) Dose Ordered Sig/Filemon Route PRN Reason Start Time Stop Time Status Last Admin Dose Admin Acetaminophen (Tylenol) 325 mg Q6H PRN ORAL Mild Pain/Temp > 100.5 12/11/19 03:30 01/06/20 09:29 Acetaminophen (Tylenol) 650 mg Q4H PRN RECTAL Mild Pain (Pain Scale 1-3) 12/11/19 04:15 01/09/20 00:14 Albuterol/ Ipratropium (Albuterol/ Ipratropium) 3 ml Q4H PRN HHN Shortness of Breath 12/12/19 21:45 12/17/19 21:44 12/12/19 22:06 Dextrose 1,000 ml @ 100 mls/hr Q10H IV 12/11/19 02:45 01/08/20 08:29 12/17/19 15:21 Dextrose (Dextrose 50%) 25 ml Q30M PRN IV Hypoglycemia 12/11/19 03:15 01/05/20 11:44 Dextrose (Dextrose 50%) 50 ml Q30M PRN IV Hypoglycemia 12/11/19 03:15 01/05/20 11:44 Diltiazem HCl (Cardizem) 30 mg EVERY 8 HOURS ORAL 12/11/19 06:00 01/05/20 13:59 12/17/19 13:33 Docusate Sodium (Colace) 100 mg TID ORAL 12/11/19 09:00 01/05/20 17:59 12/17/19 13:33 Insulin Aspart (NovoLOG) BEFORE MEALS AND HS SUBQ 12/11/19 06:30 01/05/20 16:29 12/17/19 12:26 Meropenem 1 gm/ Sodium Chloride 55 ml @ 110 mls/hr Q12HR IVPB 12/14/19 11:00 12/19/19 10:59 12/17/19 08:55 Pantoprazole (Protonix) 40 mg BID ORAL 12/11/19 09:00 01/05/20 14:44 12/17/19 08:56 Potassium Chloride (K-Dur) 40 meq TWICE A DAY ORAL 12/11/19 09:00 01/08/20 09:59 12/17/19 08:56 Quetiapine Fumarate (SEROqueL) 25 mg EVERY 6 HOURS PRN ORAL For Anxiety 12/11/19 03:00 01/09/20 02:59 12/16/19 08:36 Risperidone (RisperDAL) 0.5 mg Q12HR ORAL 12/11/19 09:00 01/05/20 08:59 12/17/19 08:56 Tamsulosin HCl (Flomax) 0.4 mg BEDTIME ORAL 12/11/19 21:00 01/05/20 20:59 12/16/19 21:23 Last 24 Hour Vital Signs Date Time Temp Pulse Resp B/P (MAP) Pulse Ox O2 Delivery O2 Flow Rate FiO2 12/17/19 16:00 97.9 92 20 120/56 (77) 94 12/17/19 13:33 96 127/58 12/17/19 12:00 93 12/17/19 12:00 97.9 96 20 127/58 (81) 95 12/17/19 09:00 Nasal Cannula 3.0 12/17/19 08:00 90 12/17/19 08:00 90 16 97 Nasal Cannula 3.0 32 12/17/19 08:00 97 Nasal Cannula 3.0 32 12/17/19 08:00 98.1 91 20 114/66 (82) 98 12/17/19 06:40 88 131/66 12/17/19 04:00 89 12/17/19 04:00 97.5 88 19 118/62 (80) 96 12/17/19 00:00 83 12/17/19 00:00 98.1 84 18 154/81 (105) 95 12/16/19 21:29 83 119/66 12/16/19 21:00 83 12/16/19 21:00 Nasal Cannula 3.0 12/16/19 20:06 81 18 97 Nasal Cannula 3.0 32 12/16/19 20:06 97 Nasal Cannula 3.0 32 12/16/19 20:00 98.2 86 19 135/83 (100) 97 12/16/19 16:00 91 12/16/19 16:00 97.9 77 18 113/62 (79) 99 12/16/19 13:41 83 113/57 12/16/19 12:00 83 12/16/19 12:00 98.1 83 20 113/57 (75) 97 12/16/19 09:00 Nasal Cannula 3.0 12/16/19 08:00 98.2 84 20 117/53 (74) 97 12/16/19 08:00 84 12/16/19 06:22 87 127/57 12/16/19 04:00 89 12/16/19 04:00 96.9 89 18 118/82 (94) 96 12/16/19 00:00 97.0 95 18 121/64 (83) 97 12/16/19 00:00 95 12/15/19 22:23 100 127/72 12/15/19 21:00 Nasal Cannula 3.0 12/15/19 20:04 83 18 96 Nasal Cannula 3.0 32 12/15/19 20:04 96 Nasal Cannula 3.0 32 12/15/19 20:00 84 12/15/19 20:00 96.6 84 18 126/78 (94) 96 Intake and Output 12/16/19 12/17/19 19:00 07:00 Intake Total 160 ml 1755 ml Balance 160 ml 1755 ml Free Water 60 ml IV Total 100 ml 1155 ml Tube Feeding 60 ml 540 ml # Voids 3 1 # Bowel Movements 1 1 Labs Test 12/15/19 06:13 12/16/19 05:48 12/17/19 10:00 White Blood Count 6.5 K/UL (4.8-10.8) 8.0 K/UL (4.8-10.8) 8.6 K/UL (4.8-10.8) Red Blood Count 3.38 M/UL (4.70-6.10) 3.36 M/UL (4.70-6.10) 3.41 M/UL (4.70-6.10) Hemoglobin 10.6 G/DL (14.2-18.0) 10.5 G/DL (14.2-18.0) 10.5 G/DL (14.2-18.0) Hematocrit 30.6 % (42.0-52.0) 30.4 % (42.0-52.0) 31.3 % (42.0-52.0) Mean Corpuscular Volume 90 FL (80-99) 91 FL (80-99) 92 FL (80-99) Mean Corpuscular Hemoglobin 31.4 PG (27.0-31.0) 31.3 PG (27.0-31.0) 30.8 PG (27.0-31.0) Mean Corpuscular Hemoglobin Concent 34.7 G/DL (32.0-36.0) 34.5 G/DL (32.0-36.0) 33.5 G/DL (32.0-36.0) Red Cell Distribution Width 13.5 % (11.6-14.8) 13.3 % (11.6-14.8) 13.5 % (11.6-14.8) Platelet Count 183 K/UL (150-450) 211 K/UL (150-450) 258 K/UL (150-450) Mean Platelet Volume 7.7 FL (6.5-10.1) 7.4 FL (6.5-10.1) 6.9 FL (6.5-10.1) Neutrophils (%) (Auto) 74.2 % (45.0-75.0) 74.7 % (45.0-75.0) 70.0 % (45.0-75.0) Lymphocytes (%) (Auto) 12.9 % (20.0-45.0) 15.2 % (20.0-45.0) 17.5 % (20.0-45.0) Monocytes (%) (Auto) 8.5 % (1.0-10.0) 7.6 % (1.0-10.0) 10.1 % (1.0-10.0) Eosinophils (%) (Auto) 3.8 % (0.0-3.0) 2.0 % (0.0-3.0) 1.6 % (0.0-3.0) Basophils (%) (Auto) 0.6 % (0.0-2.0) 0.5 % (0.0-2.0) 0.8 % (0.0-2.0) Sodium Level 135 MMOL/L (136-145) 133 MMOL/L (136-145) 134 MMOL/L (136-145) Potassium Level 3.3 MMOL/L (3.5-5.1) 4.0 MMOL/L (3.5-5.1) 4.6 MMOL/L (3.5-5.1) Chloride Level 99 MMOL/L (98-107) 99 MMOL/L (98-107) 98 MMOL/L (98-107) Carbon Dioxide Level 29 MMOL/L (21-32) 31 MMOL/L (21-32) 33 MMOL/L (21-32) Anion Gap 7 mmol/L (5-15) 3 mmol/L (5-15) 3 mmol/L (5-15) Blood Urea Nitrogen 11 mg/dL (7-18) 11 mg/dL (7-18) 13 mg/dL (7-18) Creatinine 1.3 MG/DL (0.55-1.30) 1.4 MG/DL (0.55-1.30) 1.4 MG/DL (0.55-1.30) Estimat Glomerular Filtration Rate mL/min (>60) mL/min (>60) mL/min (>60) Glucose Level 157 MG/DL (74-106) 171 MG/DL (74-106) 178 MG/DL (74-106) Calcium Level 8.5 MG/DL (8.5-10.1) 8.4 MG/DL (8.5-10.1) 8.6 MG/DL (8.5-10.1) Phosphorus Level 2.2 MG/DL (2.5-4.9) 2.6 MG/DL (2.5-4.9) 2.7 MG/DL (2.5-4.9) Magnesium Level 1.5 MG/DL (1.8-2.4) 2.0 MG/DL (1.8-2.4) 1.6 MG/DL (1.8-2.4) Total Bilirubin 7.5 MG/DL (0.2-1.0) 6.2 MG/DL (0.2-1.0) 5.2 MG/DL (0.2-1.0) Direct Bilirubin 6.6 MG/DL (0.0-0.3) 5.5 MG/DL (0.0-0.3) 4.8 MG/DL (0.0-0.3) Aspartate Amino Transf (AST/SGOT) 55 U/L (15-37) 74 U/L (15-37) 88 U/L (15-37) Alanine Aminotransferase (ALT/SGPT) 37 U/L (12-78) 41 U/L (12-78) 43 U/L (12-78) Alkaline Phosphatase 263 U/L (46-116) 385 U/L (46-116) 422 U/L (46-116) C-Reactive Protein, Quantitative 8.1 mg/dL (0.00-0.90) Pro-B-Type Natriuretic Peptide 836 pg/mL (0-125) Total Protein 5.9 G/DL (6.4-8.2) 6.0 G/DL (6.4-8.2) 6.3 G/DL (6.4-8.2) Albumin 1.4 G/DL (3.4-5.0) 1.5 G/DL (3.4-5.0) 1.5 G/DL (3.4-5.0) Globulin 4.5 g/dL 4.5 g/dL 4.8 g/dL Albumin/Globulin Ratio 0.3 (1.0-2.7) 0.3 (1.0-2.7) 0.3 (1.0-2.7) Osmolality 282 mOsm/kg (297-317) Height (Feet): 5 Height (Inches): 5.00 Weight (Pounds): 177 Objective Physical Exam Vitals: noted General: no apparent distress HEENT: supple Resp: normal breath sounds, no respiratory distress, NC+ Cardiovascular: normal rate Gastrointestinal: normal inspection, non tender, +peg Skin: normal inspection, normal color, no rash, warm/dry, palpation normal, well hydrated Lymphatic: normal inspection, no adenopathy Damian Batres MD Dec 17, 2019 16:45
--- NOTE | 2019-12-17 17:44 | NUR ---
NURSE NOTES:WOUND CARE FOLLOW-UP NOTES:Pt re-evaluated along with Primary nurse on unit. Pt noted to have partial thickness pressure injury sacrum. Base of wound is moist and viable. Edges are macerated with surrounding Non-blanching erythema without fluctuance.(L)1.7cm x (W)1.5cm. Moisture Barrier Paste applied and covered with Optifoam drsg. Positioned on side with pillow. Pt observed to be very restless and easily agitated during skin assessment. Resistive to being positioned on his side and was able to slide self into supine position . Mattress upgraded to an APM/LEÓN Mattress overlay. L heel is blanchable . R heel DTPI's laterally and Posterior R heel are both maroon with fluctuance. Cavilon Skin Barrier applied to both heels and each heel covered with Optifoam drsg. Bopth heels floated off mattress with pillows. Tx.Plan: Apply Moisture Barrier Paste to Sacrum. Cover with Optifoam drsg. Change every 3 days and prn. Apply Cavilon Skin Barrier to R Heel and Lateral R heel. Cover with Optifoam drsg. Change every 7 days and prn. Apply Cavilon Skin Barrier to L heel. Cover with Optifoam drsg. Change every 7 days and prn. APM/LEÓN Mattress overlay. Reposition at least every 2hours or as tolerated. Off-load heels with pillows.
--- NOTE | 2019-12-17 19:18 | NUR ---
NURSE NOTES: DR. PEREZ response and ordered wound consult from Dr. Mcnulty. Order acknowledged and carried out.
--- NOTE | 2019-12-17 19:40 | NUR ---
HAND-OFF: Report given to JAMAICA Jackson. Patient's stable, plan of care endorsed.
[2019-12-17 20:00] VITALS: BP 126/68
--- NOTE | 2019-12-17 20:09 | NUR ---
NURSE NOTES: Report received from Geeta BERUMEN. Patient is asleep, arousable via tactile stimuli. Respiratory even and unlabored. IV site is asymptomatic, patent, and intact. GTF is running at a prescribed rate. <10cc residual noted. Head of the bed elevated. Bed is in lowest position with side rails up x2 and brakes are engaged. Bed alarm is on. Will continue to monitor.
--- NOTE | 2019-12-17 20:13 | NUR ---
HAND-OFF: Report given to JAMAICA TORIBIO.
--- NOTE | 2019-12-17 21:11 | General Progress Note ---
Assessment/Plan Problem List: (1) Sepsis ICD Codes: A41.9 - Sepsis, unspecified organism SNOMED: 81099732 Qualifiers: Qualified Codes: A41.9 - Sepsis, unspecified organism; R65.20 - Severe sepsis without septic shock; N17.9 - Acute kidney failure, unspecified (2) Alzheimer's dementia ICD Codes: G30.9 - Alzheimer's disease, unspecified; F02.80 - Dementia in other diseases classified elsewhere without behavioral disturbance SNOMED: 20034628 Qualifiers: Qualified Codes: G30.9 - Alzheimer's disease, unspecified; F02.80 - Dementia in other diseases classified elsewhere without behavioral disturbance (3) Elevated LFTs ICD Codes: R94.5 - Abnormal results of liver function studies SNOMED: 294930241, 276145957 (4) Cholestasis ICD Codes: K83.1 - Obstruction of bile duct SNOMED: 80294404 (5) Hyperbilirubinemia ICD Codes: E80.6 - Other disorders of bilirubin metabolism SNOMED: 39119601 (6) Left lower lobe pneumonia ICD Codes: J18.9 - Pneumonia, unspecified organism SNOMED: 813247522 Qualifiers: Qualified Codes: J18.9 - Pneumonia, unspecified organism (7) Renal failure (ARF), acute on chronic ICD Codes: N17.9 - Acute kidney failure, unspecified; N18.9 - Chronic kidney disease, unspecified SNOMED: 757318912 Qualifiers: Qualified Codes: N17.9 - Acute kidney failure, unspecified; N18.3 - Chronic kidney disease, stage 3 (moderate) Status: progressing Assessment/Plan: sepsis pna s/p peg more alert labs normalized anemia no wheezing improved lft hypernatremia azotemia Subjective ROS Limited/Unobtainable: Yes Allergies: Coded Allergies: No Known Allergies (Unverified , 03/19/17) Objective Last 24 Hour Vital Signs Date Time Temp Pulse Resp B/P (MAP) Pulse Ox O2 Delivery O2 Flow Rate FiO2 12/17/19 21:09 98 Nasal Cannula 3.0 32 12/17/19 21:09 82 18 98 Nasal Cannula 3.0 32 12/17/19 20:00 98.2 83 20 126/68 (87) 97 12/17/19 16:00 93 12/17/19 16:00 97.9 92 20 120/56 (77) 94 2/7/20 13:33 96 127/58 12/17/19 12:00 93 12/17/19 12:00 97.9 96 20 127/58 (81) 95 12/17/19 09:00 Nasal Cannula 3.0 12/17/19 08:00 90 12/17/19 08:00 90 16 97 Nasal Cannula 3.0 32 12/17/19 08:00 97 Nasal Cannula 3.0 32 12/17/19 08:00 98.1 91 20 114/66 (82) 98 12/17/19 06:40 88 131/66 12/17/19 04:00 89 12/17/19 04:00 97.5 88 19 118/62 (80) 96 12/17/19 00:00 83 12/17/19 00:00 98.1 84 18 154/81 (105) 95 12/16/19 21:29 83 119/66 Intake and Output 12/16/19 12/17/19 19:00 07:00 Intake Total 160 ml 1935 ml Balance 160 ml 1935 ml Free Water 60 ml IV Total 100 ml 1155 ml Tube Feeding 60 ml 720 ml # Voids 3 5 # Bowel Movements 1 2 Laboratory Tests 12/17/19 10:00: White Blood Count 8.6, Red Blood Count 3.41L, Hemoglobin 10.5L, Hematocrit 31.3L , Mean Corpuscular Volume 92, Mean Corpuscular Hemoglobin 30.8, Mean Corpuscular Hemoglobin Concent 33.5, Red Cell Distribution Width 13.5, Platelet Count 258, Mean Platelet Volume 6.9, Neutrophils (%) (Auto) 70.0, Lymphocytes (% ) (Auto) 17.5L, Monocytes (%) (Auto) 10.1H, Eosinophils (%) (Auto) 1.6, Basophils (%) (Auto) 0.8, Sodium Level 134L, Potassium Level 4.6, Chloride Level 98, Carbon Dioxide Level 33H, Anion Gap 3L, Blood Urea Nitrogen 13, Creatinine 1.4H, Estimat Glomerular Filtration Rate , Glucose Level 178H, Calcium Level 8.6, Phosphorus Level 2.7, Magnesium Level 1.6L, Total Bilirubin 5.2H, Direct Bilirubin 4.8H, Aspartate Amino Transf (AST/SGOT) 88H, Alanine Aminotransferase (ALT/SGPT) 43, Alkaline Phosphatase 422H, Total Protein 6.3L, Albumin 1.5L, Globulin 4.8, Albumin/Globulin Ratio 0.3L Height (Feet): 5 Height (Inches): 5.00 Weight (Pounds): 177 Cardiovascular: normal rate Respiratory/Chest: lungs clear Abdomen: soft Gurmeet Elizabeth MD Dec 17, 2019 21:11
[2019-12-17] MEDS: Tamsulosin 0.4mg cap ORAL SCH (21:39)
--- NOTE | 2019-12-18 | NUR ---
NURSE NOTES: Patient is asleep but arousable by voice. No s/s of acute distress at this time. Tolerated pericare. GTF is running at a prescribed rate. Will continue to monitor.
[2019-12-18 00:10] VITALS: BP 123/60
[2019-12-18 04:00] VITALS: BP 131/56
--- NOTE | 2019-12-18 04:00 | NUR ---
NURSE NOTES: Patient is asleep but arousable by voice. No s/s of acute distress at this time. Will continue to monitor.
[2019-12-18] MEDS: dilTIAZem HCl 30mg tab ORAL SCH ×3 (06:20→22:34)
[2019-12-18] MEDS: NovoLOG Insulin Flexpen SUBQ SCH ×4 (06:20→23:27)
--- NOTE | 2019-12-18 06:55 | General Progress Note ---
Assessment/Plan Status: progressing Assessment/Plan: Problems: (1) Elevated LFTs ICD Codes: R94.5 - Abnormal results of liver function studies SNOMED: 664694962, 520085854 (2) Biliary obstruction ICD Codes: K83.1 - Obstruction of bile duct SNOMED: 858755786 (3) Cholestasis ICD Codes: K83.1 - Obstruction of bile duct SNOMED: 65134775 (4) Hyperbilirubinemia ICD Codes: E80.6 - Other disorders of bilirubin metabolism Assessment/Plan This is a 89-year-old male patient that presented with hyperbilirubinemia with no transaminitis 2/2 to cholestasis possibly due to meds Vs sepsis now stable and trending down abdominal US reviewed hepatitis panel negative repeat labs Avoid hepatotoxic's Repeat liver function test for tomorrow s/p PEG, on GTF We will follow along on a daily basis with any additional recommendations Subjective ROS Limited/Unobtainable: No Allergies: Coded Allergies: No Known Allergies (Unverified , 03/19/17) Objective Last 24 Hour Vital Signs Date Time Temp Pulse Resp B/P (MAP) Pulse Ox O2 Delivery O2 Flow Rate FiO2 12/18/19 06:20 77 131/56 12/18/19 04:00 97.7 77 20 131/56 (81) 97 12/18/19 03:59 80 12/18/19 00:10 97.9 88 20 123/60 (81) 97 12/17/19 23:55 85 12/17/19 21:39 83 126/68 12/17/19 21:09 98 Nasal Cannula 3.0 32 12/17/19 21:09 82 18 98 Nasal Cannula 3.0 32 12/17/19 21:00 Nasal Cannula 3.0 12/17/19 20:01 85 12/17/19 20:00 98.2 83 20 126/68 (87) 97 12/17/19 16:00 93 12/17/19 16:00 97.9 92 20 120/56 (77) 94 12/17/19 13:33 96 127/58 12/17/19 12:00 93 12/17/19 12:00 97.9 96 20 127/58 (81) 95 12/17/19 09:00 Nasal Cannula 3.0 12/17/19 08:00 90 12/17/19 08:00 90 16 97 Nasal Cannula 3.0 32 12/17/19 08:00 97 Nasal Cannula 3.0 32 12/17/19 08:00 98.1 91 20 114/66 (82) 98 Intake and Output 12/17/19 12/18/19 19:00 07:00 Intake Total 1760 ml Balance 1760 ml Free Water 200 ml IV Total 900 ml Tube Feeding 660 ml # Voids 6 4 # Bowel Movements 4 5 Laboratory Tests 12/17/19 10:00: White Blood Count 8.6, Red Blood Count 3.41L, Hemoglobin 10.5L, Hematocrit 31.3L , Mean Corpuscular Volume 92, Mean Corpuscular Hemoglobin 30.8, Mean Corpuscular Hemoglobin Concent 33.5, Red Cell Distribution Width 13.5, Platelet Count 258, Mean Platelet Volume 6.9, Neutrophils (%) (Auto) 70.0, Lymphocytes (% ) (Auto) 17.5L, Monocytes (%) (Auto) 10.1H, Eosinophils (%) (Auto) 1.6, Basophils (%) (Auto) 0.8, Sodium Level 134L, Potassium Level 4.6, Chloride Level 98, Carbon Dioxide Level 33H, Anion Gap 3L, Blood Urea Nitrogen 13, Creatinine 1.4H, Estimat Glomerular Filtration Rate , Glucose Level 178H, Calcium Level 8.6, Phosphorus Level 2.7, Magnesium Level 1.6L, Total Bilirubin 5.2H, Direct Bilirubin 4.8H, Aspartate Amino Transf (AST/SGOT) 88H, Alanine Aminotransferase (ALT/SGPT) 43, Alkaline Phosphatase 422H, Total Protein 6.3L, Albumin 1.5L, Globulin 4.8, Albumin/Globulin Ratio 0.3L Height (Feet): 5 Height (Inches): 5.00 Weight (Pounds): 177 General Appearance: no apparent distress EENT: normal ENT inspection Neck: supple Cardiovascular: normal rate Respiratory/Chest: decreased breath sounds Abdomen: normal bowel sounds, non tender, soft Extremities: non-tender Bladimir Escalante MD Dec 18, 2019 06:55
--- NOTE | 2019-12-18 07:10 | NUR ---
NURSE NOTES: Report received from [place] Jackson. Pt sleeping comfortably. In 2L NC. No breathing distress noted. IV running D5W @100mL/hr. BLE edema noted. R wrist soft restraint removed at this time. Bed on lowest position, side rails upx2, brakes engaged. Alarm on.
[2019-12-18 07:15] LABS: BASOPHILS % (AUTO) 0.6 % (0.0-2.0); EOSINOPHILS % (AUTO) 2.4 % (0.0-3.0); HEMATOCRIT 30.3 % (42.0-52.0); HEMOGLOBIN 10.2 G/DL (14.2-18.0); LYMPHOCYTES % (AUTO) 18.2 % (20.0-45.0); MEAN CORPUSCULAR VOLUME 92 FL (80-99); NEUTROPHILS % (AUTO) 66.7 % (45.0-75.0); PLATELET COUNT 267 K/UL (150-450); RED BLOOD COUNT 3.28 M/UL (4.70-6.10); RED CELL DISTRIBUTION WIDTH 13.7 % (11.6-14.8); WHITE BLOOD COUNT 7.5 K/UL (4.8-10.8)
--- NOTE | 2019-12-18 07:23 | NUR ---
HAND-OFF: Report given to Richard BERUMEN. Patient is in stable condition. Endorsed plan of care.
[2019-12-18 07:54] LABS: ALANINE AMINOTRANSFERASE 42 U/L (12-78); ALBUMIN 1.5 G/DL (3.4-5.0); ALBUMIN/GLOBULIN RATIO 0.3 (1.0-2.7); ALKALINE PHOSPHATASE 418 U/L (46-116); ANION GAP 0 mmol/L (5-15); ASPARTATE AMINO TRANSFERASE 78 U/L (15-37); BILIRUBIN,TOTAL 4.7 MG/DL (0.2-1.0); BLOOD UREA NITROGEN 14 mg/dL (7-18); CALCIUM 8.7 MG/DL (8.5-10.1); CARBON DIOXIDE 35 MMOL/L (21-32); CHLORIDE 99 MMOL/L (98-107); CREATININE 1.3 MG/DL (0.55-1.30); POTASSIUM 4.8 MMOL/L (3.5-5.1); SODIUM 134 MMOL/L (136-145)
[2019-12-18 07:57] LABS: BILIRUBIN,DIRECT 4.2 MG/DL (0.0-0.3)
[2019-12-18 08:14] VITALS: BP 143/61
[2019-12-18] MEDS: Docusate 100mg cap ORAL SCH (09:00)
[2019-12-18] MEDS: Meropenem 1 GM in NS 55 ML IVPB SCH ×2 (09:17→22:19)
--- NOTE | 2019-12-18 09:38 | Surgery Progress Note ---
Surgery Progress Note Subjective Additional Comments no acute events comfortable stable Objective Last 24 Hour Vital Signs Date Time Temp Pulse Resp B/P (MAP) Pulse Ox O2 Delivery O2 Flow Rate FiO2 12/18/19 08:14 98.2 83 19 143/61 (88) 98 12/18/19 07:28 73 17 98 Nasal Cannula 3.0 32 12/18/19 07:28 98 Nasal Cannula 3.0 32 12/18/19 06:20 77 131/56 12/18/19 04:00 97.7 77 20 131/56 (81) 97 12/18/19 03:59 80 12/18/19 00:10 97.9 88 20 123/60 (81) 97 12/17/19 23:55 85 12/17/19 21:39 83 126/68 12/17/19 21:09 98 Nasal Cannula 3.0 32 12/17/19 21:09 82 18 98 Nasal Cannula 3.0 32 12/17/19 21:00 Nasal Cannula 3.0 12/17/19 20:01 85 12/17/19 20:00 98.2 83 20 126/68 (87) 97 12/17/19 16:00 93 12/17/19 16:00 97.9 92 20 120/56 (77) 94 12/17/19 13:33 96 127/58 12/17/19 12:00 93 12/17/19 12:00 97.9 96 20 127/58 (81) 95 I&O Intake and Output 12/17/19 12/18/19 19:00 07:00 Intake Total 1760 ml Balance 1760 ml Free Water 200 ml IV Total 900 ml Tube Feeding 660 ml # Voids 6 4 # Bowel Movements 4 5 Dressing: other Wound: other Drains: other Cardiovascular: RSR Respiratory: decreased breath sounds Abdomen: soft, non-tender, present bowel sounds Extremities: no cyanosis Laboratory Tests Test 12/17/19 10:00 12/18/19 06:17 White Blood Count 8.6 K/UL (4.8-10.8) 7.5 K/UL (4.8-10.8) Red Blood Count 3.41 M/UL (4.70-6.10) L 3.28 M/UL (4.70-6.10) L Hemoglobin 10.5 G/DL (14.2-18.0) L 10.2 G/DL (14.2-18.0) L Hematocrit 31.3 % (42.0-52.0) L 30.3 % (42.0-52.0) L Mean Corpuscular Volume 92 FL (80-99) 92 FL (80-99) Mean Corpuscular Hemoglobin 30.8 PG (27.0-31.0) 31.0 PG (27.0-31.0) Mean Corpuscular Hemoglobin Concent 33.5 G/DL (32.0-36.0) 33.5 G/DL (32.0-36.0) Red Cell Distribution Width 13.5 % (11.6-14.8) 13.7 % (11.6-14.8) Platelet Count 258 K/UL (150-450) 267 K/UL (150-450) Mean Platelet Volume 6.9 FL (6.5-10.1) 6.7 FL (6.5-10.1) Neutrophils (%) (Auto) 70.0 % (45.0-75.0) 66.7 % (45.0-75.0) Lymphocytes (%) (Auto) 17.5 % (20.0-45.0) L 18.2 % (20.0-45.0) L Monocytes (%) (Auto) 10.1 % (1.0-10.0) H 12.0 % (1.0-10.0) H Eosinophils (%) (Auto) 1.6 % (0.0-3.0) 2.4 % (0.0-3.0) Basophils (%) (Auto) 0.8 % (0.0-2.0) 0.6 % (0.0-2.0) Sodium Level 134 MMOL/L (136-145) L 134 MMOL/L (136-145) L Potassium Level 4.6 MMOL/L (3.5-5.1) 4.8 MMOL/L (3.5-5.1) Chloride Level 98 MMOL/L (98-107) 99 MMOL/L (98-107) Carbon Dioxide Level 33 MMOL/L (21-32) H 35 MMOL/L (21-32) H Anion Gap 3 mmol/L (5-15) L 0 mmol/L (5-15) L Blood Urea Nitrogen 13 mg/dL (7-18) 14 mg/dL (7-18) Creatinine 1.4 MG/DL (0.55-1.30) H 1.3 MG/DL (0.55-1.30) Estimat Glomerular Filtration Rate mL/min (>60) mL/min (>60) Glucose Level 178 MG/DL (74-106) H 167 MG/DL (74-106) H Calcium Level 8.6 MG/DL (8.5-10.1) 8.7 MG/DL (8.5-10.1) Phosphorus Level 2.7 MG/DL (2.5-4.9) Magnesium Level 1.6 MG/DL (1.8-2.4) L Total Bilirubin 5.2 MG/DL (0.2-1.0) H 4.7 MG/DL (0.2-1.0) H Direct Bilirubin 4.8 MG/DL (0.0-0.3) H 4.2 MG/DL (0.0-0.3) H Aspartate Amino Transf (AST/SGOT) 88 U/L (15-37) H 78 U/L (15-37) H Alanine Aminotransferase (ALT/SGPT) 43 U/L (12-78) 42 U/L (12-78) Alkaline Phosphatase 422 U/L (46-116) H 418 U/L (46-116) H Total Protein 6.3 G/DL (6.4-8.2) L 6.2 G/DL (6.4-8.2) L Albumin 1.5 G/DL (3.4-5.0) L 1.5 G/DL (3.4-5.0) L Globulin 4.8 g/dL 4.7 g/dL Albumin/Globulin Ratio 0.3 (1.0-2.7) L 0.3 (1.0-2.7) L Gamma Glutamyl Transpeptidase 104 U/L (5-85) H Plan Problems: (1) Sepsis Assessment & Plan: 89-year-old male with leukocytosis, fevers, tachycardia, abnormal labs. Abdominal ultrasound nondiagnostic MRCP unable to tolerate - eval for ERCP given condition appreciate GI input in discussion with GI likely believed to be related to hepatic insufficiency Continue IV antibiotics per infectious disease No acute surgical invention planned IV fluids Trend labs Resuscitation CT evaluated. Noted abnormal gallbladder with thickened wall and pericholecystic fluid indicative of potential cholecystitis. Biliary tract without dilatation on CT. LFTs slightly improving. Given significant abnormal LFTs including bilirubin, no stones seen on CT, ultrasound findings, and new finding of potentially acute cholecystitis still unlikely for such abnormal bilirubin findings based on just cholecystitis alone without biliary obstruction. Unfortunately people unable to obtain MRCP therefore plan for EUS/ ERCP s/p discussed with GI. Hold on surgical intervention at this time given patient's age comorbidities and high risk surgery given above labs improving stable We will follow with recommendations Thank you for let me participate in patient's care (2) Biliary obstruction Assessment & Plan: Findings: The study was limited due to bowel gas body habitus. The liver is mildly heterogeneous with questionable surface nodularity. Doppler interrogation of the main portal vein shows patency with hepatopedal, monophasic flow. There is no biliary ductal dilatation identified. Gallbladder is grossly unremarkable. There demonstrated part of the pancreas, aorta and IVC show no obvious abnormalities. The structures are poorly seen. Both kidneys are poorly seen. There is no obvious hydronephrosis. IMPRESSION: No acute findings Very limited study Gallbladder is distended, but there are no gallstones and no wall thickening demonstrated. Negative for dilated bile ducts Equivocally mildly increased renal echogenicity, if real could indicate medical renal disease. Negative for evidence of hydronephrosis Gallbladder is abnormal. Gallbladder wall is thickened. There is pericholecystic stranding and ill-definition of the gallbladder wall. Findings concerning for cholecystitis. No obvious stones are seen on this exam within the gallbladder. There is no biliary duct dilatation identified. There is interposition of the hepatic flexure which resides between the diaphragm and the anterior part of the liver. There are small perihepatic nodes present.. (3) Elevated LFTs Ajit Mcnulty Dec 18, 2019 09:38
--- NOTE | 2019-12-18 09:42 | Nephrology Progress Note ---
Assessment/Plan Problem List: (1) Renal failure (ARF), acute on chronic (2) Alzheimer's dementia (3) Sepsis (4) UTI (urinary tract infection) (5) High bilirubin Assessment Acute on Chronic renal failure- CHF- Past echo 55% EjFx Sepsis, High Lactate- Leukocytosis Left lower lobe pneumonia Alzheimer's dementia UTI (urinary tract infection) Hyperglycemia, DM II Plan PEG 2/5 mag supplement as needed 2D echo noted KCL IV and Po as needed slow hydrate- D5w monitor renal parameters correct electrolytes BP and BS in check per orders Subjective ROS Limited/Unobtainable: No Constitutional: Reports: malaise Objective Objective Last 24 Hour Vital Signs Date Time Temp Pulse Resp B/P (MAP) Pulse Ox O2 Delivery O2 Flow Rate FiO2 12/18/19 08:14 98.2 83 19 143/61 (88) 98 12/18/19 07:28 73 17 98 Nasal Cannula 3.0 32 12/18/19 07:28 98 Nasal Cannula 3.0 32 12/18/19 06:20 77 131/56 12/18/19 04:00 97.7 77 20 131/56 (81) 97 12/18/19 03:59 80 12/18/19 00:10 97.9 88 20 123/60 (81) 97 12/17/19 23:55 85 12/17/19 21:39 83 126/68 12/17/19 21:09 98 Nasal Cannula 3.0 32 12/17/19 21:09 82 18 98 Nasal Cannula 3.0 32 12/17/19 21:00 Nasal Cannula 3.0 12/17/19 20:01 85 12/17/19 20:00 98.2 83 20 126/68 (87) 97 12/17/19 16:00 93 12/17/19 16:00 97.9 92 20 120/56 (77) 94 12/17/19 13:33 96 127/58 12/17/19 12:00 93 12/17/19 12:00 97.9 96 20 127/58 (81) 95 Intake and Output 12/17/19 12/18/19 19:00 07:00 Intake Total 1760 ml Balance 1760 ml Free Water 200 ml IV Total 900 ml Tube Feeding 660 ml # Voids 6 4 # Bowel Movements 4 5 Laboratory Tests 12/17/19 10:00: White Blood Count 8.6, Red Blood Count 3.41L, Hemoglobin 10.5L, Hematocrit 31.3L , Mean Corpuscular Volume 92, Mean Corpuscular Hemoglobin 30.8, Mean Corpuscular Hemoglobin Concent 33.5, Red Cell Distribution Width 13.5, Platelet Count 258, Mean Platelet Volume 6.9, Neutrophils (%) (Auto) 70.0, Lymphocytes (% ) (Auto) 17.5L, Monocytes (%) (Auto) 10.1H, Eosinophils (%) (Auto) 1.6, Basophils (%) (Auto) 0.8, Sodium Level 134L, Potassium Level 4.6, Chloride Level 98, Carbon Dioxide Level 33H, Anion Gap 3L, Blood Urea Nitrogen 13, Creatinine 1.4H, Estimat Glomerular Filtration Rate , Glucose Level 178H, Calcium Level 8.6, Phosphorus Level 2.7, Magnesium Level 1.6L, Total Bilirubin 5.2H, Direct Bilirubin 4.8H, Aspartate Amino Transf (AST/SGOT) 88H, Alanine Aminotransferase (ALT/SGPT) 43, Alkaline Phosphatase 422H, Total Protein 6.3L, Albumin 1.5L, Globulin 4.8, Albumin/Globulin Ratio 0.3L 12/18/19 06:17: White Blood Count 7.5, Red Blood Count 3.28L, Hemoglobin 10.2L, Hematocrit 30.3L , Mean Corpuscular Volume 92, Mean Corpuscular Hemoglobin 31.0, Mean Corpuscular Hemoglobin Concent 33.5, Red Cell Distribution Width 13.7, Platelet Count 267, Mean Platelet Volume 6.7, Neutrophils (%) (Auto) 66.7, Lymphocytes (% ) (Auto) 18.2L, Monocytes (%) (Auto) 12.0H, Eosinophils (%) (Auto) 2.4, Basophils (%) (Auto) 0.6, Sodium Level 134L, Potassium Level 4.8, Chloride Level 99, Carbon Dioxide Level 35H, Anion Gap 0L, Blood Urea Nitrogen 14, Creatinine 1.3, Estimat Glomerular Filtration Rate , Glucose Level 167H, Calcium Level 8.7, Total Bilirubin 4.7H, Direct Bilirubin 4.2H, Aspartate Amino Transf (AST/SGOT) 78H, Alanine Aminotransferase (ALT/SGPT) 42, Alkaline Phosphatase 418H, Total Protein 6.2L, Albumin 1.5L, Globulin 4.7, Albumin/ Globulin Ratio 0.3L, Gamma Glutamyl Transpeptidase 104H Height (Feet): 5 Height (Inches): 5.00 Weight (Pounds): 177 General Appearance: no apparent distress Respiratory/Chest: decreased breath sounds Abdomen: distended Objective no change Jose Ashraf MD Dec 18, 2019 09:42
--- NOTE | 2019-12-18 09:54 | Pulmonology Progress Note ---
Assessment/Plan Assessment/Plan IMPRESSION: 1. RLL pneumonia. Reviewed CT; pneumonia demonstrated R lung base. 2. Sepsis with lactic acidemia. 3. Acute renal insufficiency. 4. History of CHF. 5. Dementia. 6. S/P DISCUSSION: Continue antibiotics. 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 GI/surgery following. Currently saturating well on low flow O2 Kevin Lincoln M.D. Subjective Interval Events: None new Constitutional: Reports: no symptoms HEENT: Repors: no symptoms Respiratory: Reports: no symptoms Cardiovascular: Reports: no symptoms Gastrointestinal/Abdominal: Reports: no symptoms Allergies: Coded Allergies: No Known Allergies (Unverified , 03/19/17) Objective Last 24 Hour Vital Signs Date Time Temp Pulse Resp B/P (MAP) Pulse Ox O2 Delivery O2 Flow Rate FiO2 12/18/19 08:14 98.2 83 19 143/61 (88) 98 12/18/19 07:28 73 17 98 Nasal Cannula 3.0 32 12/18/19 07:28 98 Nasal Cannula 3.0 32 12/18/19 06:20 77 131/56 12/18/19 04:00 97.7 77 20 131/56 (81) 97 12/18/19 03:59 80 12/18/19 00:10 97.9 88 20 123/60 (81) 97 12/17/19 23:55 85 12/17/19 21:39 83 126/68 12/17/19 21:09 98 Nasal Cannula 3.0 32 12/17/19 21:09 82 18 98 Nasal Cannula 3.0 32 12/17/19 21:00 Nasal Cannula 3.0 12/17/19 20:01 85 12/17/19 20:00 98.2 83 20 126/68 (87) 97 12/17/19 16:00 93 12/17/19 16:00 97.9 92 20 120/56 (77) 94 12/17/19 13:33 96 127/58 12/17/19 12:00 93 12/17/19 12:00 97.9 96 20 127/58 (81) 95 Intake and Output 12/17/19 12/18/19 19:00 07:00 Intake Total 1760 ml Balance 1760 ml Free Water 200 ml IV Total 900 ml Tube Feeding 660 ml # Voids 6 4 # Bowel Movements 4 5 General Appearance: no acute distress HEENT: normocephalic Respiratory/Chest: chest wall non-tender, lungs clear Cardiovascular: normal peripheral pulses, normal rate Abdomen: normal bowel sounds Laboratory Tests 12/17/19 10:00: White Blood Count 8.6, Red Blood Count 3.41L, Hemoglobin 10.5L, Hematocrit 31.3L , Mean Corpuscular Volume 92, Mean Corpuscular Hemoglobin 30.8, Mean Corpuscular Hemoglobin Concent 33.5, Red Cell Distribution Width 13.5, Platelet Count 258, Mean Platelet Volume 6.9, Neutrophils (%) (Auto) 70.0, Lymphocytes (% ) (Auto) 17.5L, Monocytes (%) (Auto) 10.1H, Eosinophils (%) (Auto) 1.6, Basophils (%) (Auto) 0.8, Sodium Level 134L, Potassium Level 4.6, Chloride Level 98, Carbon Dioxide Level 33H, Anion Gap 3L, Blood Urea Nitrogen 13, Creatinine 1.4H, Estimat Glomerular Filtration Rate , Glucose Level 178H, Calcium Level 8.6, Phosphorus Level 2.7, Magnesium Level 1.6L, Total Bilirubin 5.2H, Direct Bilirubin 4.8H, Aspartate Amino Transf (AST/SGOT) 88H, Alanine Aminotransferase (ALT/SGPT) 43, Alkaline Phosphatase 422H, Total Protein 6.3L, Albumin 1.5L, Globulin 4.8, Albumin/Globulin Ratio 0.3L 12/18/19 06:17: White Blood Count 7.5, Red Blood Count 3.28L, Hemoglobin 10.2L, Hematocrit 30.3L , Mean Corpuscular Volume 92, Mean Corpuscular Hemoglobin 31.0, Mean Corpuscular Hemoglobin Concent 33.5, Red Cell Distribution Width 13.7, Platelet Count 267, Mean Platelet Volume 6.7, Neutrophils (%) (Auto) 66.7, Lymphocytes (% ) (Auto) 18.2L, Monocytes (%) (Auto) 12.0H, Eosinophils (%) (Auto) 2.4, Basophils (%) (Auto) 0.6, Sodium Level 134L, Potassium Level 4.8, Chloride Level 99, Carbon Dioxide Level 35H, Anion Gap 0L, Blood Urea Nitrogen 14, Creatinine 1.3, Estimat Glomerular Filtration Rate , Glucose Level 167H, Calcium Level 8.7, Total Bilirubin 4.7H, Direct Bilirubin 4.2H, Aspartate Amino Transf (AST/SGOT) 78H, Alanine Aminotransferase (ALT/SGPT) 42, Alkaline Phosphatase 418H, Total Protein 6.2L, Albumin 1.5L, Globulin 4.7, Albumin/ Globulin Ratio 0.3L, Gamma Glutamyl Transpeptidase 104H Current Medications Medications (Trade) Dose Ordered Sig/Filemon Route PRN Reason Start Time Stop Time Status Last Admin Dose Admin Acetaminophen (Tylenol) 325 mg Q6H PRN ORAL Mild Pain/Temp > 100.5 12/11/19 03:30 01/06/20 09:29 Acetaminophen (Tylenol) 650 mg Q4H PRN RECTAL Mild Pain (Pain Scale 1-3) 12/11/19 04:15 01/09/20 00:14 Dextrose 1,000 ml @ 100 mls/hr Q10H IV 12/11/19 02:45 01/08/20 08:29 12/18/19 05:00 Dextrose (Dextrose 50%) 25 ml Q30M PRN IV Hypoglycemia 12/11/19 03:15 01/05/20 11:44 Dextrose (Dextrose 50%) 50 ml Q30M PRN IV Hypoglycemia 12/11/19 03:15 01/05/20 11:44 Diltiazem HCl (Cardizem) 30 mg EVERY 8 HOURS ORAL 12/11/19 06:00 01/05/20 13:59 12/18/19 06:20 Docusate Sodium (Colace) 100 mg TID ORAL 12/11/19 09:00 01/05/20 17:59 12/17/19 17:20 Insulin Aspart (NovoLOG) BEFORE MEALS AND HS SUBQ 12/11/19 06:30 01/05/20 16:29 12/18/19 06:20 Meropenem 1 gm/ Sodium Chloride 55 ml @ 110 mls/hr Q12HR IVPB 12/14/19 11:00 12/23/19 10:59 12/18/19 09:17 Pantoprazole (Protonix) 40 mg BID ORAL 12/11/19 09:00 01/05/20 14:44 12/18/19 09:20 Potassium Chloride (K-Dur) 40 meq TWICE A DAY ORAL 12/11/19 09:00 01/08/20 09:59 12/18/19 09:19 Quetiapine Fumarate (SEROqueL) 25 mg EVERY 6 HOURS PRN ORAL For Anxiety 12/11/19 03:00 01/09/20 02:59 12/17/19 23:09 Risperidone (RisperDAL) 0.5 mg Q12HR ORAL 12/11/19 09:00 01/05/20 08:59 12/18/19 09:20 Tamsulosin HCl (Flomax) 0.4 mg BEDTIME ORAL 12/11/19 21:00 01/05/20 20:59 12/17/19 21:39 Kevin Lincoln MD Dec 18, 2019 09:54
--- NOTE | 2019-12-18 10:10 | NUR ---
NURSE NOTES: Soft wrist restraints removed. BUE elevated with pillow. reoriented Pt. Bed bath given, made comfortable.
[2019-12-18 12:00] VITALS: BP 141/64
--- NOTE | 2019-12-18 13:35 | Cardiac Electrophysiology PN ---
Assessment/Plan Assessment/Plan 1. Hypertension. On Cardizem 30 mg every 8 hours via PEG. 2. SOB due to pneumonia. On Abx Echo Nl EF 3. Nonsustained VT 5 beats. No further after K was replaced. Nl EF 4. Pneumonia, on Abx per Dr. Barth. 5. Renal failure. 6. Lactic acidosis. 7. Hyperbilirubinemia with total bilirubin of >10. Fu Dr Escalante. Bilirubin down to 5.5 MRI abdomen couldn't be done as unable to lay flat S/P CT abdomen and Pelvis. FU Dr. Escalante Suspect hepatitis (? autoimmune, ? 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, ? cholestasis due to sepsis) No Biliary obstruction on abdominal ultrasound CT abdomen Suspected acute cholecystitis with wall thickening and ill- definition slight dilatation of the gallbladder. No obvious gallstones seen on this examination. FU Dr Mcnulty 8. Renal failure with BUN of 35 and creatinine of 2.0.Resolved. Cr 1.0 9. Dysphagia, S/P PEG 12/15/19 10. Dementia. ENEDINA RN Subjective Subjective In SR. Family at bedside. Feeding by PEG ongoing on iv Abx Objective Last 24 Hour Vital Signs Date Time Temp Pulse Resp B/P (MAP) Pulse Ox O2 Delivery O2 Flow Rate FiO2 12/18/19 12:00 97.8 79 19 141/64 (89) 98 12/18/19 12:00 76 12/18/19 09:00 Nasal Cannula 2.0 12/18/19 08:14 98.2 83 19 143/61 (88) 98 12/18/19 08:00 75 12/18/19 07:28 73 17 98 Nasal Cannula 3.0 32 12/18/19 07:28 98 Nasal Cannula 3.0 32 12/18/19 06:20 77 131/56 12/18/19 04:00 97.7 77 20 131/56 (81) 97 12/18/19 03:59 80 12/18/19 00:10 97.9 88 20 123/60 (81) 97 12/17/19 23:55 85 12/17/19 21:39 83 126/68 12/17/19 21:09 98 Nasal Cannula 3.0 32 12/17/19 21:09 82 18 98 Nasal Cannula 3.0 32 2/7/20 21:00 Nasal Cannula 3.0 12/17/19 20:01 85 12/17/19 20:00 98.2 83 20 126/68 (87) 97 12/17/19 16:00 93 12/17/19 16:00 97.9 92 20 120/56 (77) 94 Intake and Output 12/17/19 12/18/19 19:00 07:00 Intake Total 1760 ml Balance 1760 ml Free Water 200 ml IV Total 900 ml Tube Feeding 660 ml # Voids 6 4 # Bowel Movements 4 5 Laboratory Tests Test 12/18/19 06:17 White Blood Count 7.5 K/UL (4.8-10.8) Red Blood Count 3.28 M/UL (4.70-6.10) L Hemoglobin 10.2 G/DL (14.2-18.0) L Hematocrit 30.3 % (42.0-52.0) L Mean Corpuscular Volume 92 FL (80-99) Mean Corpuscular Hemoglobin 31.0 PG (27.0-31.0) Mean Corpuscular Hemoglobin Concent 33.5 G/DL (32.0-36.0) Red Cell Distribution Width 13.7 % (11.6-14.8) Platelet Count 267 K/UL (150-450) Mean Platelet Volume 6.7 FL (6.5-10.1) Neutrophils (%) (Auto) 66.7 % (45.0-75.0) Lymphocytes (%) (Auto) 18.2 % (20.0-45.0) L Monocytes (%) (Auto) 12.0 % (1.0-10.0) H Eosinophils (%) (Auto) 2.4 % (0.0-3.0) Basophils (%) (Auto) 0.6 % (0.0-2.0) Sodium Level 134 MMOL/L (136-145) L Potassium Level 4.8 MMOL/L (3.5-5.1) Chloride Level 99 MMOL/L (98-107) Carbon Dioxide Level 35 MMOL/L (21-32) H Anion Gap 0 mmol/L (5-15) L Blood Urea Nitrogen 14 mg/dL (7-18) Creatinine 1.3 MG/DL (0.55-1.30) Estimat Glomerular Filtration Rate mL/min (>60) Glucose Level 167 MG/DL (74-106) H Calcium Level 8.7 MG/DL (8.5-10.1) Total Bilirubin 4.7 MG/DL (0.2-1.0) H Direct Bilirubin 4.2 MG/DL (0.0-0.3) H Gamma Glutamyl Transpeptidase 104 U/L (5-85) H Aspartate Amino Transf (AST/SGOT) 78 U/L (15-37) H Alanine Aminotransferase (ALT/SGPT) 42 U/L (12-78) Alkaline Phosphatase 418 U/L (46-116) H Total Protein 6.2 G/DL (6.4-8.2) L Albumin 1.5 G/DL (3.4-5.0) L Globulin 4.7 g/dL Albumin/Globulin Ratio 0.3 (1.0-2.7) L Objective HEAD AND NECK: Shows no JVD.Sclera icteric. LUNGS: Decreased breath sounds. CARDIOVASCULAR: Shows regular S1 and S2 with no gallop. ABDOMEN: Soft.S/P PEG EXTREMITIES: No pitting edema. Kyle Reynoso MD Dec 18, 2019 13:35
[2019-12-18] MEDS: Docusate 100mg/10ml Liq ORAL SCH ×2 (14:09→18:04)
[2019-12-18 16:00] VITALS: BP 109/54
--- NOTE | 2019-12-18 16:46 | General Progress Note ---
Assessment/Plan Problem List: (1) Sepsis ICD Codes: A41.9 - Sepsis, unspecified organism SNOMED: 66692173 Qualifiers: Qualified Codes: A41.9 - Sepsis, unspecified organism; R65.20 - Severe sepsis without septic shock; N17.9 - Acute kidney failure, unspecified (2) Alzheimer's dementia ICD Codes: G30.9 - Alzheimer's disease, unspecified; F02.80 - Dementia in other diseases classified elsewhere without behavioral disturbance SNOMED: 71182688 Qualifiers: Qualified Codes: G30.9 - Alzheimer's disease, unspecified; F02.80 - Dementia in other diseases classified elsewhere without behavioral disturbance (3) Elevated LFTs ICD Codes: R94.5 - Abnormal results of liver function studies SNOMED: 172259195, 822692304 (4) Cholestasis ICD Codes: K83.1 - Obstruction of bile duct SNOMED: 69015145 (5) Hyperbilirubinemia ICD Codes: E80.6 - Other disorders of bilirubin metabolism SNOMED: 30732180 (6) Left lower lobe pneumonia ICD Codes: J18.9 - Pneumonia, unspecified organism SNOMED: 789441589 Qualifiers: Qualified Codes: J18.9 - Pneumonia, unspecified organism (7) Renal failure (ARF), acute on chronic ICD Codes: N17.9 - Acute kidney failure, unspecified; N18.9 - Chronic kidney disease, unspecified SNOMED: 210433307 Qualifiers: Qualified Codes: N17.9 - Acute kidney failure, unspecified; N18.3 - Chronic kidney disease, stage 3 (moderate) Status: progressing Assessment/Plan: sepsis pna s/p peg cholestasis afebrile no acute events anemia no azotemia Subjective ROS Limited/Unobtainable: Yes Allergies: Coded Allergies: No Known Allergies (Unverified , 03/19/17) Objective Last 24 Hour Vital Signs Date Time Temp Pulse Resp B/P (MAP) Pulse Ox O2 Delivery O2 Flow Rate FiO2 12/18/19 14:09 76 141/64 12/18/19 12:00 97.8 79 19 141/64 (89) 98 12/18/19 12:00 76 12/18/19 09:00 Nasal Cannula 2.0 12/18/19 08:14 98.2 83 19 143/61 (88) 98 12/18/19 08:00 75 12/18/19 07:28 73 17 98 Nasal Cannula 3.0 32 12/18/19 07:28 98 Nasal Cannula 3.0 32 12/18/19 06:20 77 131/56 12/18/19 04:00 97.7 77 20 131/56 (81) 97 12/18/19 03:59 80 12/18/19 00:10 97.9 88 20 123/60 (81) 97 12/17/19 23:55 85 12/17/19 21:39 83 126/68 12/17/19 21:09 98 Nasal Cannula 3.0 32 12/17/19 21:09 82 18 98 Nasal Cannula 3.0 32 12/17/19 21:00 Nasal Cannula 3.0 12/17/19 20:01 85 12/17/19 20:00 98.2 83 20 126/68 (87) 97 Intake and Output 12/17/19 12/18/19 19:00 07:00 Intake Total 1760 ml Balance 1760 ml Free Water 200 ml IV Total 900 ml Tube Feeding 660 ml # Voids 6 4 # Bowel Movements 4 5 Laboratory Tests 12/18/19 06:17: White Blood Count 7.5, Red Blood Count 3.28L, Hemoglobin 10.2L, Hematocrit 30.3L , Mean Corpuscular Volume 92, Mean Corpuscular Hemoglobin 31.0, Mean Corpuscular Hemoglobin Concent 33.5, Red Cell Distribution Width 13.7, Platelet Count 267, Mean Platelet Volume 6.7, Neutrophils (%) (Auto) 66.7, Lymphocytes (% ) (Auto) 18.2L, Monocytes (%) (Auto) 12.0H, Eosinophils (%) (Auto) 2.4, Basophils (%) (Auto) 0.6, Sodium Level 134L, Potassium Level 4.8, Chloride Level 99, Carbon Dioxide Level 35H, Anion Gap 0L, Blood Urea Nitrogen 14, Creatinine 1.3, Estimat Glomerular Filtration Rate , Glucose Level 167H, Calcium Level 8.7, Total Bilirubin 4.7H, Direct Bilirubin 4.2H, Gamma Glutamyl Transpeptidase 104H, Aspartate Amino Transf (AST/SGOT) 78H, Alanine Aminotransferase (ALT/SGPT) 42, Alkaline Phosphatase 418H, Total Protein 6.2L, Albumin 1.5L, Globulin 4.7, Albumin/Globulin Ratio 0.3L Height (Feet): 5 Height (Inches): 5.00 Weight (Pounds): 177 Neck: supple Cardiovascular: regular rhythm Respiratory/Chest: lungs clear Gurmeet Elizabeth MD Dec 18, 2019 16:46
--- NOTE | 2019-12-18 18:36 | NUR ---
CASE MANAGEMENT: REVIEW 12/18/2019 SI:SEPSIS WITH LACTIC ACIDEMIA . ACUTE ON CHRONIC RENAL FAILURE . HIGH BILIRUBIN . JAUNDICE . PNA . (+) VRE T 98.3 HR 82 RR 19 B/P 109/54 SATS 98% ON 2L/NC LABS: NA 134 CO2 35 GLU 167 TBILI 4.7 DBILI 4.2 AST 78 ALP 418 IS:IV MEROPENEM BID IVF D5@100ML/HR SEROQUEL PO Q6HR RISPERDAL PO BID ALBUTEROL Q4HR/PRN NOVOLOG SQ AC&HS CARDIZEM PO Q8H FLOMAX PO QHS PROTONIX PO BID K-DUR PO BID : 2E TELE UNIT DCP: BACK TO [facility] WHEN STABLE
--- NOTE | 2019-12-18 19:35 | NUR ---
NURSE NOTES: Received report from [facility] BERUMEN. PT is AO x0, non verbal-moaning. Pt is very agitated. Right FA IV is infiltrated. Will insert new IV. Per AM shift nurse MD Ashraf is aware about Mg level. ordered Mg level recheck in AM. Bed is on the lowest position. Bed alarm is on Zone 2. Rails are up x3. Will follow the plan of care. Addendum: 12/19/19 at 0005 by ELISA RAMOS RN HOB > 45 degree. NO GT residual noted.
--- NOTE | 2019-12-18 19:35 | NUR ---
HAND-OFF: Report given to JAMAICA Nuñez. Pt. in stable condition.
[2019-12-18 20:00] VITALS: BP 119/61
[2019-12-18] MEDS ORDERED: LORazepam 1mg tab ORAL PRN (22:15)
[2019-12-18] MEDS: Tamsulosin 0.4mg cap ORAL SCH (22:34)
[2019-12-19 04:00] VITALS: BP 127/70
[2019-12-19 06:00] VITALS: BP 127/70
[2019-12-19] MEDS: dilTIAZem HCl 30mg tab ORAL SCH ×3 (06:51→21:24)
[2019-12-19] MEDS: NovoLOG Insulin Flexpen SUBQ SCH ×4 (06:51→21:34)
--- NOTE | 2019-12-19 07:40 | NUR ---
HAND-OFF: Report given to Isiah Velasquez RN.
[2019-12-19 08:00] VITALS: BP 115/58
--- NOTE | 2019-12-19 08:28 | General Progress Note ---
Assessment/Plan Status: progressing Assessment/Plan: Problems: (1) Elevated LFTs ICD Codes: R94.5 - Abnormal results of liver function studies SNOMED: 855266713, 797862381 (2) Biliary obstruction ICD Codes: K83.1 - Obstruction of bile duct SNOMED: 561929739 (3) Cholestasis ICD Codes: K83.1 - Obstruction of bile duct SNOMED: 63617909 (4) Hyperbilirubinemia ICD Codes: E80.6 - Other disorders of bilirubin metabolism Assessment/Plan This is a 89-year-old male patient that presented with hyperbilirubinemia with no transaminitis 2/2 to cholestasis possibly due to meds Vs sepsis now stable and trending down abdominal US reviewed hepatitis panel negative repeat labs Avoid hepatotoxic's Repeat liver function test for tomorrow s/p PEG, on GTF We will follow along on a daily basis with any additional recommendations Subjective Allergies: Coded Allergies: No Known Allergies (Unverified , 03/19/17) Objective Last 24 Hour Vital Signs Date Time Temp Pulse Resp B/P (MAP) Pulse Ox O2 Delivery O2 Flow Rate FiO2 12/19/19 06:51 99 127/70 12/19/19 06:00 98.2 99 20 127/70 (89) 96 12/19/19 04:00 98 12/19/19 04:00 98.2 99 20 127/70 (89) 96 12/19/19 00:00 106 12/18/19 22:34 88 119/61 12/18/19 21:00 Nasal Cannula 2.0 12/18/19 20:04 80 18 96 Nasal Cannula 3.0 32 12/18/19 20:04 96 Nasal Cannula 3.0 32 12/18/19 20:00 85 12/18/19 20:00 98.4 88 20 119/61 (80) 96 12/18/19 16:00 98.3 82 19 109/54 (72) 98 12/18/19 16:00 80 12/18/19 14:09 76 141/64 12/18/19 12:00 97.8 79 19 141/64 (89) 98 12/18/19 12:00 76 12/18/19 09:00 Nasal Cannula 2.0 Intake and Output 12/18/19 12/19/19 19:00 07:00 Intake Total 920 ml Balance 920 ml Free Water 200 ml Tube Feeding 720 ml # Voids 2 5 # Bowel Movements 4 Laboratory Tests 12/19/19 07:25: Sodium Level [Pending], Potassium Level [Pending], Chloride Level [Pending], Carbon Dioxide Level [Pending], Blood Urea Nitrogen [Pending], Creatinine [ Pending], Estimat Glomerular Filtration Rate [Pending], Glucose Level [Pending] , Calcium Level [Pending], Total Bilirubin [Pending], Aspartate Amino Transf ( AST/SGOT) [Pending], Alanine Aminotransferase (ALT/SGPT) [Pending], Alkaline Phosphatase [Pending], Total Protein [Pending], Albumin [Pending], Globulin [ Pending] 12/19/19 07:28: White Blood Count [Pending], Red Blood Count [Pending], Hemoglobin [Pending], Hematocrit [Pending], Mean Corpuscular Volume [Pending], Mean Corpuscular Hemoglobin [Pending], Mean Corpuscular Hemoglobin Concent [Pending], Red Cell Distribution Width [Pending], Platelet Count [Pending], Mean Platelet Volume [ Pending], Neutrophils (%) (Auto) [Pending], Lymphocytes (%) (Auto) [Pending], Monocytes (%) (Auto) [Pending], Eosinophils (%) (Auto) [Pending], Basophils (%) (Auto) [Pending], Uric Acid [Pending], Phosphorus Level [Pending], Magnesium Level [Pending], Gamma Glutamyl Transpeptidase [Pending] Height (Feet): 5 Height (Inches): 5.00 Weight (Pounds): 177 General Appearance: alert EENT: normal ENT inspection Neck: supple Cardiovascular: normal rate Respiratory/Chest: decreased breath sounds Abdomen: normal bowel sounds, non tender, soft Extremities: non-tender Bladimir Escalante MD Dec 19, 2019 08:28
[2019-12-19 08:36] LABS: BASOPHILS % (AUTO) 0.8 % (0.0-2.0); EOSINOPHILS % (AUTO) 2.3 % (0.0-3.0); HEMATOCRIT 33.1 % (42.0-52.0); LYMPHOCYTES % (AUTO) 16.9 % (20.0-45.0); MEAN CORPUSCULAR VOLUME 93 FL (80-99); MONOCYTES % (AUTO) 11.2 % (1.0-10.0); NEUTROPHILS % (AUTO) 68.8 % (45.0-75.0); PLATELET COUNT 317 K/UL (150-450); RED BLOOD COUNT 3.56 M/UL (4.70-6.10); RED CELL DISTRIBUTION WIDTH 13.6 % (11.6-14.8); WHITE BLOOD COUNT 6.8 K/UL (4.8-10.8)
[2019-12-19] MEDS: Meropenem 1 GM in NS 55 ML IVPB SCH ×2 (08:44→21:24)
[2019-12-19] MEDS: Docusate 100mg/10ml Liq ORAL SCH ×3 (08:45→17:44)
[2019-12-19 09:00] LABS: ALANINE AMINOTRANSFERASE 40 U/L (12-78); ALBUMIN 1.7 G/DL (3.4-5.0); ALBUMIN/GLOBULIN RATIO 0.3 (1.0-2.7); ALKALINE PHOSPHATASE 432 U/L (46-116); ANION GAP 3 mmol/L (5-15); ASPARTATE AMINO TRANSFERASE 63 U/L (15-37); BILIRUBIN,TOTAL 4.5 MG/DL (0.2-1.0); BLOOD UREA NITROGEN 19 mg/dL (7-18); CALCIUM 9.1 MG/DL (8.5-10.1); CARBON DIOXIDE 33 MMOL/L (21-32); CHLORIDE 98 MMOL/L (98-107); CREATININE 1.5 MG/DL (0.55-1.30); POTASSIUM 5.1 MMOL/L (3.5-5.1); SODIUM 134 MMOL/L (136-145)
--- NOTE | 2019-12-19 11:08 | Infectious Diseases Prog Note ---
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, hypertension, Alzheimer dementia, acute renal failure, improving Hypernatremia Acalculous cholecystitis Atelectasis/ Pneumonia RECOMMENDATION: Continue Meropenem F/U LFT Subjective ROS Limited/Unobtainable: Yes Neurologic: Reports: confusion, other - on restraint Allergies: Coded Allergies: No Known Allergies (Unverified , 03/19/17) Objective Vital Signs Last 24 Hour Vital Signs Date Time Temp Pulse Resp B/P (MAP) Pulse Ox O2 Delivery O2 Flow Rate FiO2 12/19/19 09:33 73 20 93 Room Air 21 12/19/19 09:33 93 Room Air 21 12/19/19 06:51 99 127/70 12/19/19 06:00 98.2 99 20 127/70 (89) 96 12/19/19 04:00 98 12/19/19 04:00 98.2 99 20 127/70 (89) 96 12/19/19 00:00 106 12/18/19 22:34 88 119/61 12/18/19 21:00 Nasal Cannula 2.0 12/18/19 20:04 80 18 96 Nasal Cannula 3.0 32 12/18/19 20:04 96 Nasal Cannula 3.0 32 12/18/19 20:00 85 12/18/19 20:00 98.4 88 20 119/61 (80) 96 12/18/19 16:00 98.3 82 19 109/54 (72) 98 12/18/19 16:00 80 12/18/19 14:09 76 141/64 12/18/19 12:00 97.8 79 19 141/64 (89) 98 12/18/19 12:00 76 Height (Feet): 5 Height (Inches): 5.00 Weight (Pounds): 177 HEENT: mucous membranes moist Respiratory/Chest: lungs clear Cardiovascular: normal rate Abdomen: soft, non tender, other - GT feeding Extremities: no edema Neurologic/Psychiatric: disoriented Laboratory Tests Test 12/19/19 07:25 12/19/19 07:28 Sodium Level 134 MMOL/L (136-145) L Potassium Level 5.1 MMOL/L (3.5-5.1) Chloride Level 98 MMOL/L (98-107) Carbon Dioxide Level 33 MMOL/L (21-32) H Anion Gap 3 mmol/L (5-15) L Blood Urea Nitrogen 19 mg/dL (7-18) H Creatinine 1.5 MG/DL (0.55-1.30) H Estimat Glomerular Filtration Rate mL/min (>60) Glucose Level 187 MG/DL (74-106) H Calcium Level 9.1 MG/DL (8.5-10.1) Total Bilirubin 4.5 MG/DL (0.2-1.0) H Direct Bilirubin 4.0 MG/DL (0.0-0.3) H Aspartate Amino Transf (AST/SGOT) 63 U/L (15-37) H Alanine Aminotransferase (ALT/SGPT) 40 U/L (12-78) Alkaline Phosphatase 432 U/L (46-116) H Total Protein 7.0 G/DL (6.4-8.2) Albumin 1.7 G/DL (3.4-5.0) L Globulin 5.3 g/dL Albumin/Globulin Ratio 0.3 (1.0-2.7) L White Blood Count 6.8 K/UL (4.8-10.8) Red Blood Count 3.56 M/UL (4.70-6.10) L Hemoglobin 11.0 G/DL (14.2-18.0) L Hematocrit 33.1 % (42.0-52.0) L Mean Corpuscular Volume 93 FL (80-99) Mean Corpuscular Hemoglobin 30.7 PG (27.0-31.0) Mean Corpuscular Hemoglobin Concent 33.1 G/DL (32.0-36.0) Red Cell Distribution Width 13.6 % (11.6-14.8) Platelet Count 317 K/UL (150-450) Mean Platelet Volume 6.2 FL (6.5-10.1) L Neutrophils (%) (Auto) 68.8 % (45.0-75.0) Lymphocytes (%) (Auto) 16.9 % (20.0-45.0) L Monocytes (%) (Auto) 11.2 % (1.0-10.0) H Eosinophils (%) (Auto) 2.3 % (0.0-3.0) Basophils (%) (Auto) 0.8 % (0.0-2.0) Uric Acid 3.5 MG/DL (2.6-7.2) Phosphorus Level 3.0 MG/DL (2.5-4.9) Magnesium Level 1.5 MG/DL (1.8-2.4) L Gamma Glutamyl Transpeptidase 116 U/L (5-85) H Current Medications Medications (Trade) Dose Ordered Sig/Filemon Route PRN Reason Start Time Stop Time Status Last Admin Dose Admin Acetaminophen (Tylenol) 325 mg Q6H PRN ORAL Mild Pain/Temp > 100.5 12/11/19 03:30 01/06/20 09:29 Acetaminophen (Tylenol) 650 mg Q4H PRN RECTAL Mild Pain (Pain Scale 1-3) 12/11/19 04:15 01/09/20 00:14 Dextrose (Dextrose 50%) 25 ml Q30M PRN IV Hypoglycemia 12/11/19 03:15 01/05/20 11:44 Dextrose (Dextrose 50%) 50 ml Q30M PRN IV Hypoglycemia 12/11/19 03:15 01/05/20 11:44 Diltiazem HCl (Cardizem) 30 mg EVERY 8 HOURS ORAL 12/11/19 06:00 01/05/20 13:59 12/19/19 06:51 Docusate Sodium (Colace) 100 mg TID ORAL 12/18/19 13:00 01/17/20 12:59 12/19/19 08:45 Insulin Aspart (NovoLOG) BEFORE MEALS AND HS SUBQ 12/11/19 06:30 01/05/20 16:29 12/19/19 06:51 Lorazepam (Ativan) 1 mg Q4HR PRN ORAL For Anxiety 12/18/19 22:15 12/25/19 22:14 12/18/19 22:34 Meropenem 1 gm/ Sodium Chloride 55 ml @ 110 mls/hr Q12HR IVPB 12/14/19 11:00 12/23/19 10:59 12/19/19 08:44 Mirtazapine (Remeron) 15 mg BEDTIME ORAL 12/18/19 22:15 01/17/20 22:14 12/18/19 22:34 Pantoprazole (Protonix) 40 mg BID ORAL 12/11/19 09:00 01/05/20 14:44 12/19/19 08:45 Potassium Chloride (K-Dur) 40 meq TWICE A DAY ORAL 12/11/19 09:00 01/08/20 09:59 12/19/19 08:45 Quetiapine Fumarate (SEROqueL) 25 mg EVERY 6 HOURS PRN ORAL For Anxiety 12/11/19 03:00 01/09/20 02:59 12/17/19 23:09 Risperidone (RisperDAL) 1 mg BEDTIME ORAL 12/18/19 22:15 01/17/20 22:14 12/18/19 22:34 Tamsulosin HCl (Flomax) 0.4 mg BEDTIME ORAL 12/11/19 21:00 01/05/20 20:59 12/18/19 22:34 Enrike Hadley MD Dec 19, 2019 11:08
--- NOTE | 2019-12-19 11:34 | Pulmonology Progress Note ---
Assessment/Plan Assessment/Plan IMPRESSION: 1. RLL pneumonia. Reviewed CT; pneumonia demonstrated R lung base. 2. Sepsis with lactic acidemia. 3. Acute renal insufficiency. 4. History of CHF. 5. Dementia. 6. S/P DISCUSSION: Continue antibiotics. I will follow carefully as respiratory network consultant. GI/surgery following. No new recommendations Currently saturating well on low flow O2 Kevin Lincoln M.D. Subjective Interval Events: None new Constitutional: Reports: no symptoms HEENT: Repors: no symptoms Respiratory: Reports: no symptoms Gastrointestinal/Abdominal: Reports: no symptoms Allergies: Coded Allergies: No Known Allergies (Unverified , 03/19/17) Objective Last 24 Hour Vital Signs Date Time Temp Pulse Resp B/P (MAP) Pulse Ox O2 Delivery O2 Flow Rate FiO2 12/19/19 09:33 73 20 93 Room Air 21 12/19/19 09:33 93 Room Air 21 12/19/19 06:51 99 127/70 12/19/19 06:00 98.2 99 20 127/70 (89) 96 12/19/19 04:00 98 12/19/19 04:00 98.2 99 20 127/70 (89) 96 12/19/19 00:00 106 12/18/19 22:34 88 119/61 12/18/19 21:00 Nasal Cannula 2.0 12/18/19 20:04 80 18 96 Nasal Cannula 3.0 32 12/18/19 20:04 96 Nasal Cannula 3.0 32 12/18/19 20:00 85 12/18/19 20:00 98.4 88 20 119/61 (80) 96 12/18/19 16:00 98.3 82 19 109/54 (72) 98 12/18/19 16:00 80 12/18/19 14:09 76 141/64 12/18/19 12:00 97.8 79 19 141/64 (89) 98 12/18/19 12:00 76 Intake and Output 12/18/19 12/19/19 19:00 07:00 Intake Total 920 ml Balance 920 ml Free Water 200 ml Tube Feeding 720 ml # Voids 2 5 # Bowel Movements 4 General Appearance: no acute distress HEENT: normocephalic Respiratory/Chest: chest wall non-tender, lungs clear Cardiovascular: normal peripheral pulses Laboratory Tests 12/19/19 07:25: Sodium Level 134L, Potassium Level 5.1, Chloride Level 98, Carbon Dioxide Level 33H, Anion Gap 3L, Blood Urea Nitrogen 19H, Creatinine 1.5H, Estimat Glomerular Filtration Rate , Glucose Level 187H, Calcium Level 9.1, Total Bilirubin 4.5H, Direct Bilirubin 4.0H, Aspartate Amino Transf (AST/SGOT) 63H, Alanine Aminotransferase (ALT/SGPT) 40, Alkaline Phosphatase 432H, Total Protein 7.0, Albumin 1.7L, Globulin 5.3, Albumin/Globulin Ratio 0.3L 12/19/19 07:28: White Blood Count 6.8, Red Blood Count 3.56L, Hemoglobin 11.0L, Hematocrit 33.1L , Mean Corpuscular Volume 93, Mean Corpuscular Hemoglobin 30.7, Mean Corpuscular Hemoglobin Concent 33.1, Red Cell Distribution Width 13.6, Platelet Count 317, Mean Platelet Volume 6.2L, Neutrophils (%) (Auto) 68.8, Lymphocytes ( %) (Auto) 16.9L, Monocytes (%) (Auto) 11.2H, Eosinophils (%) (Auto) 2.3, Basophils (%) (Auto) 0.8, Uric Acid 3.5, Phosphorus Level 3.0, Magnesium Level 1.5L, Gamma Glutamyl Transpeptidase 116H Current Medications Medications (Trade) Dose Ordered Sig/Filemon Route PRN Reason Start Time Stop Time Status Last Admin Dose Admin Acetaminophen (Tylenol) 325 mg Q6H PRN ORAL Mild Pain/Temp > 100.5 12/11/19 03:30 01/06/20 09:29 Acetaminophen (Tylenol) 650 mg Q4H PRN RECTAL Mild Pain (Pain Scale 1-3) 12/11/19 04:15 01/09/20 00:14 Dextrose (Dextrose 50%) 25 ml Q30M PRN IV Hypoglycemia 12/11/19 03:15 01/05/20 11:44 Dextrose (Dextrose 50%) 50 ml Q30M PRN IV Hypoglycemia 12/11/19 03:15 01/05/20 11:44 Diltiazem HCl (Cardizem) 30 mg EVERY 8 HOURS ORAL 12/11/19 06:00 01/05/20 13:59 12/19/19 06:51 Docusate Sodium (Colace) 100 mg TID ORAL 12/18/19 13:00 01/17/20 12:59 12/19/19 08:45 Insulin Aspart (NovoLOG) BEFORE MEALS AND HS SUBQ 12/11/19 06:30 01/05/20 16:29 12/19/19 06:51 Lorazepam (Ativan) 1 mg Q4HR PRN ORAL For Anxiety 12/18/19 22:15 12/25/19 22:14 12/18/19 22:34 Magnesium Sulfate 100 ml @ 100 mls/hr Q1H IVPB 12/19/19 12:00 12/19/19 13:59 Meropenem 1 gm/ Sodium Chloride 55 ml @ 110 mls/hr Q12HR IVPB 12/14/19 11:00 12/23/19 10:59 12/19/19 08:44 Mirtazapine (Remeron) 15 mg BEDTIME ORAL 12/18/19 22:15 01/17/20 22:14 12/18/19 22:34 Pantoprazole (Protonix) 40 mg BID ORAL 12/11/19 09:00 01/05/20 14:44 12/19/19 08:45 Potassium Chloride (K-Dur) 40 meq TWICE A DAY ORAL 12/11/19 09:00 01/08/20 09:59 12/19/19 08:45 Quetiapine Fumarate (SEROqueL) 25 mg EVERY 6 HOURS PRN ORAL For Anxiety 12/11/19 03:00 01/09/20 02:59 12/17/19 23:09 Risperidone (RisperDAL) 1 mg BEDTIME ORAL 12/18/19 22:15 01/17/20 22:14 12/18/19 22:34 Tamsulosin HCl (Flomax) 0.4 mg BEDTIME ORAL 12/11/19 21:00 01/05/20 20:59 12/18/19 22:34 Kevin Lincoln MD Dec 19, 2019 11:34
[2019-12-19 12:00] VITALS: BP 109/58
--- NOTE | 2019-12-19 12:43 | Nephrology Progress Note ---
Assessment/Plan Problem List: (1) Renal failure (ARF), acute on chronic (2) Alzheimer's dementia (3) Sepsis (4) UTI (urinary tract infection) (5) High bilirubin Assessment Acute on Chronic renal failure- CHF- Past echo 55% EjFx Sepsis, High Lactate- Leukocytosis Left lower lobe pneumonia Alzheimer's dementia UTI (urinary tract infection) Hyperglycemia, DM II Plan PEG 2/5 mag supplement as needed 2D echo noted KCL IV and Po as needed slow hydrate- D5w monitor renal parameters correct electrolytes BP and BS in check per orders Subjective ROS Limited/Unobtainable: No Constitutional: Reports: malaise Objective Objective Last 24 Hour Vital Signs Date Time Temp Pulse Resp B/P (MAP) Pulse Ox O2 Delivery O2 Flow Rate FiO2 12/19/19 09:33 73 20 93 Room Air 21 12/19/19 09:33 93 Room Air 21 12/19/19 08:00 98.1 60 20 115/58 (77) 97 12/19/19 06:51 99 127/70 12/19/19 06:00 98.2 99 20 127/70 (89) 96 12/19/19 04:00 98 12/19/19 04:00 98.2 99 20 127/70 (89) 96 12/19/19 00:00 106 12/18/19 22:34 88 119/61 12/18/19 21:00 Nasal Cannula 2.0 12/18/19 20:04 80 18 96 Nasal Cannula 3.0 32 12/18/19 20:04 96 Nasal Cannula 3.0 32 12/18/19 20:00 85 12/18/19 20:00 98.4 88 20 119/61 (80) 96 12/18/19 16:00 98.3 82 19 109/54 (72) 98 12/18/19 16:00 80 12/18/19 14:09 76 141/64 Intake and Output 12/18/19 12/19/19 19:00 07:00 Intake Total 920 ml Balance 920 ml Free Water 200 ml Tube Feeding 720 ml # Voids 2 5 # Bowel Movements 4 Laboratory Tests 12/19/19 07:25: Sodium Level 134L, Potassium Level 5.1, Chloride Level 98, Carbon Dioxide Level 33H, Anion Gap 3L, Blood Urea Nitrogen 19H, Creatinine 1.5H, Estimat Glomerular Filtration Rate , Glucose Level 187H, Calcium Level 9.1, Total Bilirubin 4.5H, Direct Bilirubin 4.0H, Aspartate Amino Transf (AST/SGOT) 63H, Alanine Aminotransferase (ALT/SGPT) 40, Alkaline Phosphatase 432H, Total Protein 7.0, Albumin 1.7L, Globulin 5.3, Albumin/Globulin Ratio 0.3L 12/19/19 07:28: White Blood Count 6.8, Red Blood Count 3.56L, Hemoglobin 11.0L, Hematocrit 33.1L , Mean Corpuscular Volume 93, Mean Corpuscular Hemoglobin 30.7, Mean Corpuscular Hemoglobin Concent 33.1, Red Cell Distribution Width 13.6, Platelet Count 317, Mean Platelet Volume 6.2L, Neutrophils (%) (Auto) 68.8, Lymphocytes ( %) (Auto) 16.9L, Monocytes (%) (Auto) 11.2H, Eosinophils (%) (Auto) 2.3, Basophils (%) (Auto) 0.8, Uric Acid 3.5, Phosphorus Level 3.0, Magnesium Level 1.5L, Gamma Glutamyl Transpeptidase 116H Height (Feet): 5 Height (Inches): 5.00 Weight (Pounds): 177 General Appearance: no apparent distress, lethargic Cardiovascular: arrhythmia Respiratory/Chest: decreased breath sounds Abdomen: distended Objective no change Jose Ashraf MD Dec 19, 2019 12:43
--- NOTE | 2019-12-19 13:15 | General Progress Note ---
Assessment/Plan Problem List: (1) Sepsis ICD Codes: A41.9 - Sepsis, unspecified organism SNOMED: 03146021 Qualifiers: Qualified Codes: A41.9 - Sepsis, unspecified organism; R65.20 - Severe sepsis without septic shock; N17.9 - Acute kidney failure, unspecified (2) Alzheimer's dementia ICD Codes: G30.9 - Alzheimer's disease, unspecified; F02.80 - Dementia in other diseases classified elsewhere without behavioral disturbance SNOMED: 78230679 Qualifiers: Qualified Codes: G30.9 - Alzheimer's disease, unspecified; F02.80 - Dementia in other diseases classified elsewhere without behavioral disturbance (3) Elevated LFTs ICD Codes: R94.5 - Abnormal results of liver function studies SNOMED: 410607517, 961202886 (4) Cholestasis ICD Codes: K83.1 - Obstruction of bile duct SNOMED: 75989951 (5) Hyperbilirubinemia ICD Codes: E80.6 - Other disorders of bilirubin metabolism SNOMED: 83161708 (6) Left lower lobe pneumonia ICD Codes: J18.9 - Pneumonia, unspecified organism SNOMED: 552438469 Qualifiers: Qualified Codes: J18.9 - Pneumonia, unspecified organism (7) Renal failure (ARF), acute on chronic ICD Codes: N17.9 - Acute kidney failure, unspecified; N18.9 - Chronic kidney disease, unspecified SNOMED: 768383291 Qualifiers: Qualified Codes: N17.9 - Acute kidney failure, unspecified; N18.3 - Chronic kidney disease, stage 3 (moderate) Status: progressing Assessment/Plan: sepsis improving pna improving s/p peg cholestasis malnutrition lft is improving azotemia Subjective ROS Limited/Unobtainable: Yes Allergies: Coded Allergies: No Known Allergies (Unverified , 03/19/17) Objective Last 24 Hour Vital Signs Date Time Temp Pulse Resp B/P (MAP) Pulse Ox O2 Delivery O2 Flow Rate FiO2 12/19/19 12:00 105 12/19/19 12:00 98.1 104 20 109/58 (75) 93 12/19/19 09:33 73 20 93 Room Air 21 12/19/19 09:33 93 Room Air 21 12/19/19 08:00 98.1 60 20 115/58 (77) 97 12/19/19 08:00 110 12/19/19 06:51 99 127/70 12/19/19 06:00 98.2 99 20 127/70 (89) 96 12/19/19 04:00 98 12/19/19 04:00 98.2 99 20 127/70 (89) 96 12/19/19 00:00 106 12/18/19 22:34 88 119/61 12/18/19 21:00 Nasal Cannula 2.0 12/18/19 20:04 80 18 96 Nasal Cannula 3.0 32 12/18/19 20:04 96 Nasal Cannula 3.0 32 12/18/19 20:00 85 12/18/19 20:00 98.4 88 20 119/61 (80) 96 12/18/19 16:00 98.3 82 19 109/54 (72) 98 12/18/19 16:00 80 12/18/19 14:09 76 141/64 Intake and Output 12/18/19 12/19/19 19:00 07:00 Intake Total 920 ml Balance 920 ml Free Water 200 ml Tube Feeding 720 ml # Voids 2 5 # Bowel Movements 4 Laboratory Tests 12/19/19 07:25: Sodium Level 134L, Potassium Level 5.1, Chloride Level 98, Carbon Dioxide Level 33H, Anion Gap 3L, Blood Urea Nitrogen 19H, Creatinine 1.5H, Estimat Glomerular Filtration Rate , Glucose Level 187H, Calcium Level 9.1, Total Bilirubin 4.5H, Direct Bilirubin 4.0H, Aspartate Amino Transf (AST/SGOT) 63H, Alanine Aminotransferase (ALT/SGPT) 40, Alkaline Phosphatase 432H, Total Protein 7.0, Albumin 1.7L, Globulin 5.3, Albumin/Globulin Ratio 0.3L 12/19/19 07:28: White Blood Count 6.8, Red Blood Count 3.56L, Hemoglobin 11.0L, Hematocrit 33.1L , Mean Corpuscular Volume 93, Mean Corpuscular Hemoglobin 30.7, Mean Corpuscular Hemoglobin Concent 33.1, Red Cell Distribution Width 13.6, Platelet Count 317, Mean Platelet Volume 6.2L, Neutrophils (%) (Auto) 68.8, Lymphocytes ( %) (Auto) 16.9L, Monocytes (%) (Auto) 11.2H, Eosinophils (%) (Auto) 2.3, Basophils (%) (Auto) 0.8, Uric Acid 3.5, Phosphorus Level 3.0, Magnesium Level 1.5L, Gamma Glutamyl Transpeptidase 116H Height (Feet): 5 Height (Inches): 5.00 Weight (Pounds): 177 General Appearance: confused Cardiovascular: normal rate Respiratory/Chest: lungs clear Gurmeet Elizabeth MD Dec 19, 2019 13:15
--- NOTE | 2019-12-19 13:56 | Hematology/Onc Progress Note ---
Assessment/Plan Assessment/Plan Assessment and Recs: # Thrombocytopenia -- is likely related to sepsis from pna, currently in 100- 150 range --> smear has been ordered and reviewed --> meds are noted --> okay to continue on abx --> plt trend 169-->148k-->141-->128-->135-->163-->258-->317 --> hold off steriods --> hep and hiv NEG --> us abd negative for cirrhosis/hsm # Leukocytosis due to pna/lactic acidosis --> as per above --> smear has been reviewed --> as per id, on vanc/zosyn-->zosyn-->ligia --> wbc trend: 16.7 -->14.1-->0.8-->7-->8.6-->11 --> PENDING eus/ercp # Anemia of chronic disease --> in this case due to hemodilution --> hgb trend: 12.3-->11.8-->10.5 # Hyperbilirubinemia --> gi aware as per their recs --> mri as needed --> eus/ercp per surg # AMS --> as per psych, on soft wr # Dysphagia -->2/5 s/p peg # Cholestasis # Biliary obstruction # Elevated LFTs # PNA/Sepsis Appreciate consultation and will tasha Rn. Subjective Allergies: Coded Allergies: No Known Allergies (Unverified , 03/19/17) Subjective 12/08: awake, no acute events, wbc 16.7, afebrile, on abx, us abd negative 12/09: no acute distress, lft's worsening, wbc improving, nc 3l 12/10: labs noted, plt remains stable, is unable to have mri, no bleeding 12/12: bilat wrist restraints, wbc improved, remains on zosyn 2: on ngt feeds and also abx, with restraints, remains confused 12/14: remains on soft restraints, seen by psych, no bleedng noted, smear reviewed 12/15: no major events, no bleeding, labs noted, wbc better 12/16: no events, labs noted, on abx, peg placed yesterday, no bleeding 12/17: confused, no acute events, nc, remains on ligia 12/19: nonverbal, no acute events, labs reviewed, afebrile Objective Objective Current Medications Medications (Trade) Dose Ordered Sig/Filemon Route PRN Reason Start Time Stop Time Status Last Admin Dose Admin Acetaminophen (Tylenol) 325 mg Q6H PRN ORAL Mild Pain/Temp > 100.5 12/11/19 03:30 01/06/20 09:29 Acetaminophen (Tylenol) 650 mg Q4H PRN RECTAL Mild Pain (Pain Scale 1-3) 12/11/19 04:15 01/09/20 00:14 Dextrose (Dextrose 50%) 25 ml Q30M PRN IV Hypoglycemia 12/11/19 03:15 01/05/20 11:44 Dextrose (Dextrose 50%) 50 ml Q30M PRN IV Hypoglycemia 12/11/19 03:15 01/05/20 11:44 Diltiazem HCl (Cardizem) 30 mg EVERY 8 HOURS ORAL 12/11/19 06:00 01/05/20 13:59 12/19/19 06:51 Docusate Sodium (Colace) 100 mg TID ORAL 12/18/19 13:00 01/17/20 12:59 12/19/19 12:30 Insulin Aspart (NovoLOG) BEFORE MEALS AND HS SUBQ 12/11/19 06:30 01/05/20 16:29 12/19/19 12:33 Lorazepam (Ativan) 1 mg Q4HR PRN ORAL For Anxiety 12/18/19 22:15 12/25/19 22:14 12/18/19 22:34 Magnesium Sulfate 100 ml @ 100 mls/hr Q1H IVPB 12/19/19 12:00 12/19/19 13:59 12/19/19 12:30 Meropenem 1 gm/ Sodium Chloride 55 ml @ 110 mls/hr Q12HR IVPB 12/14/19 11:00 12/23/19 10:59 12/19/19 08:44 Mirtazapine (Remeron) 15 mg BEDTIME ORAL 12/18/19 22:15 01/17/20 22:14 12/18/19 22:34 Pantoprazole (Protonix) 40 mg BID ORAL 12/11/19 09:00 01/05/20 14:44 12/19/19 08:45 Potassium Chloride (K-Dur) 40 meq TWICE A DAY ORAL 12/11/19 09:00 01/08/20 09:59 12/19/19 08:45 Quetiapine Fumarate (SEROqueL) 25 mg EVERY 6 HOURS PRN ORAL For Anxiety 12/11/19 03:00 01/09/20 02:59 12/17/19 23:09 Risperidone (RisperDAL) 1 mg BEDTIME ORAL 12/18/19 22:15 01/17/20 22:14 12/18/19 22:34 Tamsulosin HCl (Flomax) 0.4 mg BEDTIME ORAL 12/11/19 21:00 01/05/20 20:59 12/18/19 22:34 Last 24 Hour Vital Signs Date Time Temp Pulse Resp B/P (MAP) Pulse Ox O2 Delivery O2 Flow Rate FiO2 12/19/19 12:00 105 12/19/19 12:00 98.1 104 20 109/58 (75) 93 12/19/19 09:33 73 20 93 Room Air 21 12/19/19 09:33 93 Room Air 21 12/19/19 08:00 98.1 60 20 115/58 (77) 97 12/19/19 08:00 110 12/19/19 06:51 99 127/70 12/19/19 06:00 98.2 99 20 127/70 (89) 96 12/19/19 04:00 98 12/19/19 04:00 98.2 99 20 127/70 (89) 96 12/19/19 00:00 106 12/18/19 22:34 88 119/61 12/18/19 21:00 Nasal Cannula 2.0 12/18/19 20:04 80 18 96 Nasal Cannula 3.0 32 12/18/19 20:04 96 Nasal Cannula 3.0 32 12/18/19 20:00 85 12/18/19 20:00 98.4 88 20 119/61 (80) 96 12/18/19 16:00 98.3 82 19 109/54 (72) 98 12/18/19 16:00 80 12/18/19 14:09 76 141/64 12/18/19 12:00 97.8 79 19 141/64 (89) 98 12/18/19 12:00 76 12/18/19 09:00 Nasal Cannula 2.0 12/18/19 08:14 98.2 83 19 143/61 (88) 98 12/18/19 08:00 75 12/18/19 07:28 73 17 98 Nasal Cannula 3.0 32 12/18/19 07:28 98 Nasal Cannula 3.0 32 12/18/19 06:20 77 131/56 12/18/19 04:00 97.7 77 20 131/56 (81) 97 12/18/19 03:59 80 12/18/19 00:10 97.9 88 20 123/60 (81) 97 12/17/19 23:55 85 12/17/19 21:39 83 126/68 12/17/19 21:09 98 Nasal Cannula 3.0 32 12/17/19 21:09 82 18 98 Nasal Cannula 3.0 32 12/17/19 21:00 Nasal Cannula 3.0 12/17/19 20:01 85 12/17/19 20:00 98.2 83 20 126/68 (87) 97 12/17/19 16:00 93 12/17/19 16:00 97.9 92 20 120/56 (77) 94 Intake and Output 12/18/19 12/19/19 19:00 07:00 Intake Total 920 ml Balance 920 ml Free Water 200 ml Tube Feeding 720 ml # Voids 2 5 # Bowel Movements 4 Labs Test 12/17/19 10:00 12/18/19 06:17 12/19/19 07:25 12/19/19 07:28 White Blood Count 8.6 K/UL (4.8-10.8) 7.5 K/UL (4.8-10.8) 6.8 K/UL (4.8-10.8) Red Blood Count 3.41 M/UL (4.70-6.10) 3.28 M/UL (4.70-6.10) 3.56 M/UL (4.70-6.10) Hemoglobin 10.5 G/DL (14.2-18.0) 10.2 G/DL (14.2-18.0) 11.0 G/DL (14.2-18.0) Hematocrit 31.3 % (42.0-52.0) 30.3 % (42.0-52.0) 33.1 % (42.0-52.0) Mean Corpuscular Volume 92 FL (80-99) 92 FL (80-99) 93 FL (80-99) Mean Corpuscular Hemoglobin 30.8 PG (27.0-31.0) 31.0 PG (27.0-31.0) 30.7 PG (27.0-31.0) Mean Corpuscular Hemoglobin Concent 33.5 G/DL (32.0-36.0) 33.5 G/DL (32.0-36.0) 33.1 G/DL (32.0-36.0) Red Cell Distribution Width 13.5 % (11.6-14.8) 13.7 % (11.6-14.8) 13.6 % (11.6-14.8) Platelet Count 258 K/UL (150-450) 267 K/UL (150-450) 317 K/UL (150-450) Mean Platelet Volume 6.9 FL (6.5-10.1) 6.7 FL (6.5-10.1) 6.2 FL (6.5-10.1) Neutrophils (%) (Auto) 70.0 % (45.0-75.0) 66.7 % (45.0-75.0) 68.8 % (45.0-75.0) Lymphocytes (%) (Auto) 17.5 % (20.0-45.0) 18.2 % (20.0-45.0) 16.9 % (20.0-45.0) Monocytes (%) (Auto) 10.1 % (1.0-10.0) 12.0 % (1.0-10.0) 11.2 % (1.0-10.0) Eosinophils (%) (Auto) 1.6 % (0.0-3.0) 2.4 % (0.0-3.0) 2.3 % (0.0-3.0) Basophils (%) (Auto) 0.8 % (0.0-2.0) 0.6 % (0.0-2.0) 0.8 % (0.0-2.0) Sodium Level 134 MMOL/L (136-145) 134 MMOL/L (136-145) 134 MMOL/L (136-145) Potassium Level 4.6 MMOL/L (3.5-5.1) 4.8 MMOL/L (3.5-5.1) 5.1 MMOL/L (3.5-5.1) Chloride Level 98 MMOL/L (98-107) 99 MMOL/L (98-107) 98 MMOL/L (98-107) Carbon Dioxide Level 33 MMOL/L (21-32) 35 MMOL/L (21-32) 33 MMOL/L (21-32) Anion Gap 3 mmol/L (5-15) 0 mmol/L (5-15) 3 mmol/L (5-15) Blood Urea Nitrogen 13 mg/dL (7-18) 14 mg/dL (7-18) 19 mg/dL (7-18) Creatinine 1.4 MG/DL (0.55-1.30) 1.3 MG/DL (0.55-1.30) 1.5 MG/DL (0.55-1.30) Estimat Glomerular Filtration Rate mL/min (>60) mL/min (>60) mL/min (>60) Glucose Level 178 MG/DL (74-106) 167 MG/DL (74-106) 187 MG/DL (74-106) Calcium Level 8.6 MG/DL (8.5-10.1) 8.7 MG/DL (8.5-10.1) 9.1 MG/DL (8.5-10.1) Phosphorus Level 2.7 MG/DL (2.5-4.9) 3.0 MG/DL (2.5-4.9) Magnesium Level 1.6 MG/DL (1.8-2.4) 1.5 MG/DL (1.8-2.4) Total Bilirubin 5.2 MG/DL (0.2-1.0) 4.7 MG/DL (0.2-1.0) 4.5 MG/DL (0.2-1.0) Direct Bilirubin 4.8 MG/DL (0.0-0.3) 4.2 MG/DL (0.0-0.3) 4.0 MG/DL (0.0-0.3) Aspartate Amino Transf (AST/SGOT) 88 U/L (15-37) 78 U/L (15-37) 63 U/L (15-37) Alanine Aminotransferase (ALT/SGPT) 43 U/L (12-78) 42 U/L (12-78) 40 U/L (12-78) Alkaline Phosphatase 422 U/L (46-116) 418 U/L (46-116) 432 U/L (46-116) Total Protein 6.3 G/DL (6.4-8.2) 6.2 G/DL (6.4-8.2) 7.0 G/DL (6.4-8.2) Albumin 1.5 G/DL (3.4-5.0) 1.5 G/DL (3.4-5.0) 1.7 G/DL (3.4-5.0) Globulin 4.8 g/dL 4.7 g/dL 5.3 g/dL Albumin/Globulin Ratio 0.3 (1.0-2.7) 0.3 (1.0-2.7) 0.3 (1.0-2.7) Gamma Glutamyl Transpeptidase 104 U/L (5-85) 116 U/L (5-85) Uric Acid 3.5 MG/DL (2.6-7.2) Height (Feet): 5 Height (Inches): 5.00 Weight (Pounds): 177 Objective Physical Exam Vitals: noted General: no apparent distress HEENT: supple Resp: normal breath sounds, no respiratory distress, NC+ Cardiovascular: normal rate Gastrointestinal: normal inspection, non tender, +peg Skin: normal inspection, normal color, no rash, warm/dry, palpation normal, well hydrated Lymphatic: normal inspection, no adenopathy Damian Batres MD Dec 19, 2019 13:56
[2019-12-19 16:00] VITALS: BP 104/51
[2019-12-19 20:00] VITALS: BP 124/60
--- NOTE | 2019-12-19 20:01 | NUR ---
HAND-OFF: Report given to [place] Longoria. Patient sitting HOB at 45 degress, sleeping, bed in lowest position, call light within reach, bilateral soft wrist restraints in place, IV running into left forearm 22 patent 22 gauge, GT running Glucerna 1.2 @ 60cc/hour, abdominal binder in place, no c/o pain, no SOB, in no apparent distress.
--- NOTE | 2019-12-19 20:05 | NUR ---
NURSE NOTES: Received report from Isiah Flynn RN. Pt in stable condition, denies pain at this time, SR. Will continue plan of care and close monitoring.
[2019-12-19] MEDS: Tamsulosin 0.4mg cap ORAL SCH (21:25)
[2019-12-20] VITALS: BP 128/54
[2019-12-20 04:00] VITALS: BP 116/65
[2019-12-20] MEDS: dilTIAZem HCl 30mg tab ORAL SCH ×2 (05:31→14:06)
[2019-12-20] MEDS: NovoLOG Insulin Flexpen SUBQ SCH ×3 (05:37→16:30)
--- NOTE | 2019-12-20 07:24 | NUR ---
HAND-OFF: Report given to Nohemi Mathews RN. Pt in stable condition, no signs or symtoms of pain at this time, SR. Will continue plan of care and close monitoring. .
[2019-12-20 07:34] LABS: BASOPHILS % (AUTO) 0.8 % (0.0-2.0); EOSINOPHILS % (AUTO) 2.1 % (0.0-3.0); HEMATOCRIT 31.4 % (42.0-52.0); HEMOGLOBIN 10.7 G/DL (14.2-18.0); LYMPHOCYTES % (AUTO) 24.6 % (20.0-45.0); MEAN CORPUSCULAR VOLUME 92 FL (80-99); MONOCYTES % (AUTO) 13.4 % (1.0-10.0); NEUTROPHILS % (AUTO) 59.1 % (45.0-75.0); PLATELET COUNT 336 K/UL (150-450); RED BLOOD COUNT 3.42 M/UL (4.70-6.10); RED CELL DISTRIBUTION WIDTH 13.6 % (11.6-14.8); WHITE BLOOD COUNT 6.9 K/UL (4.8-10.8)
[2019-12-20 07:54] LABS: ALANINE AMINOTRANSFERASE 36 U/L (12-78); ALBUMIN 1.6 G/DL (3.4-5.0); ALBUMIN/GLOBULIN RATIO 0.3 (1.0-2.7); ALKALINE PHOSPHATASE 407 U/L (46-116); ANION GAP 2 mmol/L (5-15); ASPARTATE AMINO TRANSFERASE 49 U/L (15-37); BILIRUBIN,TOTAL 3.8 MG/DL (0.2-1.0); BLOOD UREA NITROGEN 27 mg/dL (7-18); CALCIUM 8.8 MG/DL (8.5-10.1); CARBON DIOXIDE 33 MMOL/L (21-32); CHLORIDE 101 MMOL/L (98-107); CREATININE 1.8 MG/DL (0.55-1.30); POTASSIUM 5.5 MMOL/L (3.5-5.1); SODIUM 136 MMOL/L (136-145)
[2019-12-20 07:55] LABS: BILIRUBIN,DIRECT 3.3 MG/DL (0.0-0.3)
[2019-12-20 08:00] VITALS: BP 137/76
--- NOTE | 2019-12-20 08:00 | NUR ---
NURSE NOTES: Patient stable AOx0 with no s/sx of distress. RR even and unlabored on 2L NC. Abdominal binder in place protecting gtube. Side rails upx2, call light within reach, bed low and locked. Will continue to monitor.
--- NOTE | 2019-12-20 08:58 | General Progress Note ---
Assessment/Plan Status: progressing Assessment/Plan: Problems: (1) Elevated LFTs ICD Codes: R94.5 - Abnormal results of liver function studies SNOMED: 265211291, 982124067 (2) Biliary obstruction ICD Codes: K83.1 - Obstruction of bile duct SNOMED: 490836064 (3) Cholestasis ICD Codes: K83.1 - Obstruction of bile duct SNOMED: 33259204 (4) Hyperbilirubinemia ICD Codes: E80.6 - Other disorders of bilirubin metabolism Assessment/Plan This is a 89-year-old male patient that presented with hyperbilirubinemia with no transaminitis 2/2 to cholestasis possibly due to meds Vs sepsis now stable and trending down abdominal US reviewed hepatitis panel negative repeat labs Avoid hepatotoxic's Repeat liver function test for tomorrow>>> improving s/p PEG, on GTF We will follow along on a daily basis with any additional recommendations Subjective ROS Limited/Unobtainable: No Allergies: Coded Allergies: No Known Allergies (Unverified , 03/19/17) Objective Last 24 Hour Vital Signs Date Time Temp Pulse Resp B/P (MAP) Pulse Ox O2 Delivery O2 Flow Rate FiO2 12/20/19 08:00 98.1 60 20 137/76 (96) 95 12/20/19 05:31 113 116/65 12/20/19 04:00 99.1 113 28 116/65 (82) 93 12/20/19 04:00 111 12/20/19 00:00 99.0 113 20 128/54 (78) 99 12/20/19 00:00 113 12/19/19 21:24 106 124/60 12/19/19 21:00 Nasal Cannula 2.0 12/19/19 20:42 95 Room Air 21 12/19/19 20:00 98.9 106 19 124/60 (81) 98 12/19/19 20:00 106 12/19/19 16:00 100 12/19/19 16:00 97.6 102 19 104/51 (68) 98 12/19/19 14:00 105 109/58 12/19/19 12:00 105 12/19/19 12:00 98.1 104 20 109/58 (75) 93 12/19/19 09:33 73 20 93 Room Air 21 12/19/19 09:33 93 Room Air 21 12/19/19 09:00 Nasal Cannula 2.0 Intake and Output 12/19/19 12/20/19 19:00 07:00 Intake Total 1115 ml Output Total 600 ml Balance 515 ml Free Water 200 ml IV Total 255 ml Tube Feeding 660 ml Output Urine Total 600 ml # Voids 1 2 Laboratory Tests 12/20/19 06:05: White Blood Count 6.9, Red Blood Count 3.42L, Hemoglobin 10.7L, Hematocrit 31.4L , Mean Corpuscular Volume 92, Mean Corpuscular Hemoglobin 31.3H, Mean Corpuscular Hemoglobin Concent 34.1, Red Cell Distribution Width 13.6, Platelet Count 336, Mean Platelet Volume 6.5, Neutrophils (%) (Auto) 59.1, Lymphocytes (% ) (Auto) 24.6, Monocytes (%) (Auto) 13.4H, Eosinophils (%) (Auto) 2.1, Basophils (%) (Auto) 0.8, Sodium Level 136, Potassium Level 5.5H, Chloride Level 101, Carbon Dioxide Level 33H, Anion Gap 2L, Blood Urea Nitrogen 27H, Creatinine 1.8H, Estimat Glomerular Filtration Rate , Glucose Level 162H, Calcium Level 8.8, Total Bilirubin 3.8H, Direct Bilirubin 3.3H, Aspartate Amino Transf (AST/SGOT) 49H, Alanine Aminotransferase (ALT/SGPT) 36, Alkaline Phosphatase 407H, Total Protein 6.8, Albumin 1.6L, Globulin 5.2, Albumin/ Globulin Ratio 0.3L Height (Feet): 5 Height (Inches): 5.00 Weight (Pounds): 177 General Appearance: lethargic EENT: normal ENT inspection Neck: supple Cardiovascular: normal rate Respiratory/Chest: decreased breath sounds Abdomen: normal bowel sounds, non tender, soft Extremities: non-tender Bladimir Escalante MD Dec 20, 2019 08:58
--- NOTE | 2019-12-20 09:00 | Nephrology Progress Note ---
Assessment/Plan Problem List: (1) Renal failure (ARF), acute on chronic (2) Alzheimer's dementia (3) Sepsis (4) UTI (urinary tract infection) (5) High bilirubin Assessment Acute on Chronic renal failure- CHF- Past echo 55% EjFx Sepsis, High Lactate- Leukocytosis Left lower lobe pneumonia Alzheimer's dementia UTI (urinary tract infection) Hyperglycemia, DM II Plan PEG 2/ mag supplement as needed 2D echo noted KCL IV and Po as needed- DC KCl on 12/20 for high K slow hydrate- D5w monitor renal parameters correct electrolytes BP and BS in check per orders Subjective ROS Limited/Unobtainable: No Constitutional: Reports: malaise, weakness Objective Objective Last 24 Hour Vital Signs Date Time Temp Pulse Resp B/P (MAP) Pulse Ox O2 Delivery O2 Flow Rate FiO2 12/20/19 08:00 98.1 60 20 137/76 (96) 95 12/20/19 05:31 113 116/65 12/20/19 04:00 99.1 113 28 116/65 (82) 93 12/20/19 04:00 111 12/20/19 00:00 99.0 113 20 128/54 (78) 99 12/20/19 00:00 113 12/19/19 21:24 106 124/60 12/19/19 21:00 Nasal Cannula 2.0 12/19/19 20:42 95 Room Air 21 12/19/19 20:00 98.9 106 19 124/60 (81) 98 12/19/19 20:00 106 12/19/19 16:00 100 12/19/19 16:00 97.6 102 19 104/51 (68) 98 12/19/19 14:00 105 109/58 12/19/19 12:00 105 12/19/19 12:00 98.1 104 20 109/58 (75) 93 12/19/19 09:33 73 20 93 Room Air 21 12/19/19 09:33 93 Room Air 21 Intake and Output 12/19/19 12/20/19 19:00 07:00 Intake Total 1115 ml Output Total 600 ml Balance 515 ml Free Water 200 ml IV Total 255 ml Tube Feeding 660 ml Output Urine Total 600 ml # Voids 1 2 Current Medications Medications (Trade) Dose Ordered Sig/Filemon Route PRN Reason Start Time Stop Time Status Last Admin Dose Admin Acetaminophen (Tylenol) 325 mg Q6H PRN ORAL Mild Pain/Temp > 100.5 12/11/19 03:30 01/06/20 09:29 Acetaminophen (Tylenol) 650 mg Q4H PRN RECTAL Mild Pain (Pain Scale 1-3) 12/11/19 04:15 01/09/20 00:14 Dextrose (Dextrose 50%) 25 ml Q30M PRN IV Hypoglycemia 12/11/19 03:15 01/05/20 11:44 Dextrose (Dextrose 50%) 50 ml Q30M PRN IV Hypoglycemia 12/11/19 03:15 01/05/20 11:44 Diltiazem HCl (Cardizem) 30 mg EVERY 8 HOURS ORAL 12/11/19 06:00 01/05/20 13:59 12/20/19 05:31 Docusate Sodium (Colace) 100 mg TID ORAL 12/18/19 13:00 01/17/20 12:59 12/19/19 17:44 Insulin Aspart (NovoLOG) BEFORE MEALS AND HS SUBQ 12/11/19 06:30 01/05/20 16:29 12/20/19 05:37 Lorazepam (Ativan) 1 mg Q4HR PRN ORAL For Anxiety 12/18/19 22:15 12/25/19 22:14 12/18/19 22:34 Meropenem 1 gm/ Sodium Chloride 55 ml @ 110 mls/hr Q12HR IVPB 12/14/19 11:00 12/23/19 10:59 12/19/19 21:24 Mirtazapine (Remeron) 15 mg BEDTIME ORAL 12/18/19 22:15 01/17/20 22:14 12/19/19 21:24 Pantoprazole (Protonix) 40 mg BID ORAL 12/11/19 09:00 01/05/20 14:44 12/19/19 17:44 Potassium Chloride (K-Dur) 40 meq TWICE A DAY ORAL 12/11/19 09:00 01/08/20 09:59 12/19/19 17:44 Quetiapine Fumarate (SEROqueL) 25 mg EVERY 6 HOURS PRN ORAL For Anxiety 12/11/19 03:00 01/09/20 02:59 12/17/19 23:09 Risperidone (RisperDAL) 1 mg BEDTIME ORAL 12/18/19 22:15 01/17/20 22:14 12/19/19 21:25 Tamsulosin HCl (Flomax) 0.4 mg BEDTIME ORAL 12/11/19 21:00 01/05/20 20:59 12/19/19 21:25 Laboratory Tests 12/20/19 06:05: White Blood Count 6.9, Red Blood Count 3.42L, Hemoglobin 10.7L, Hematocrit 31.4L , Mean Corpuscular Volume 92, Mean Corpuscular Hemoglobin 31.3H, Mean Corpuscular Hemoglobin Concent 34.1, Red Cell Distribution Width 13.6, Platelet Count 336, Mean Platelet Volume 6.5, Neutrophils (%) (Auto) 59.1, Lymphocytes (% ) (Auto) 24.6, Monocytes (%) (Auto) 13.4H, Eosinophils (%) (Auto) 2.1, Basophils (%) (Auto) 0.8, Sodium Level 136, Potassium Level 5.5H, Chloride Level 101, Carbon Dioxide Level 33H, Anion Gap 2L, Blood Urea Nitrogen 27H, Creatinine 1.8H, Estimat Glomerular Filtration Rate , Glucose Level 162H, Calcium Level 8.8, Total Bilirubin 3.8H, Direct Bilirubin 3.3H, Aspartate Amino Transf (AST/SGOT) 49H, Alanine Aminotransferase (ALT/SGPT) 36, Alkaline Phosphatase 407H, Total Protein 6.8, Albumin 1.6L, Globulin 5.2, Albumin/ Globulin Ratio 0.3L Height (Feet): 5 Height (Inches): 5.00 Weight (Pounds): 177 General Appearance: no apparent distress Neck: limited range of motion Cardiovascular: tachycardia Respiratory/Chest: decreased breath sounds Abdomen: soft Objective no change Jose Ashraf MD Dec 20, 2019 09:00
[2019-12-20] MEDS: Meropenem 1 GM in NS 55 ML IVPB SCH (09:02)
[2019-12-20] MEDS: Docusate 100mg/10ml Liq ORAL SCH ×3 (09:02→17:02)
--- NOTE | 2019-12-20 10:15 | Cardiac Electrophysiology PN ---
Assessment/Plan Assessment/Plan 1. Hypertension. On Cardizem 30 mg tid via PEG. 2. SOB due to pneumonia. On Abx Echo Nl EF 3. Nonsustained VT 5 beats. No further after K was replaced. Nl EF 4. Pneumonia, on Abx per Dr. Barth. 5. Renal failure. 6. Lactic acidosis. 7. Hyperbilirubinemia with total bilirubin of >10. Fu Dr Escalante. Bilirubin down to 5.5 MRI abdomen couldn't be done as unable to lay flat S/P CT abdomen and Pelvis. FU Dr. Escalante Suspect hepatitis (? autoimmune, ? 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, ? cholestasis due to sepsis) No Biliary obstruction on abdominal ultrasound CT abdomen Suspected acute cholecystitis with wall thickening. No obvious gallstones seen . FU Dr Mcnulty 8. Renal failure with BUN of 35 and creatinine of 2.0.Resolved. Cr 1.0 9. Dysphagia, S/P PEG 12/15/19 10. Dementia. ENEDINA RN Subjective Subjective In SR. Feeding by PEG ongoing on iv Abx. RN at bedside Objective Last 24 Hour Vital Signs Date Time Temp Pulse Resp B/P (MAP) Pulse Ox O2 Delivery O2 Flow Rate FiO2 12/20/19 08:00 98.1 60 20 137/76 (96) 95 12/20/19 08:00 107 12/20/19 05:31 113 116/65 12/20/19 04:00 99.1 113 28 116/65 (82) 93 12/20/19 04:00 111 12/20/19 00:00 99.0 113 20 128/54 (78) 99 12/20/19 00:00 113 12/19/19 21:24 106 124/60 12/19/19 21:00 Nasal Cannula 2.0 12/19/19 20:42 95 Room Air 21 12/19/19 20:00 98.9 106 19 124/60 (81) 98 12/19/19 20:00 106 12/19/19 16:00 100 12/19/19 16:00 97.6 102 19 104/51 (68) 98 12/19/19 14:00 105 109/58 12/19/19 12:00 105 12/19/19 12:00 98.1 104 20 109/58 (75) 93 Intake and Output 12/19/19 12/20/19 19:00 07:00 Intake Total 1115 ml Output Total 600 ml Balance 515 ml Free Water 200 ml IV Total 255 ml Tube Feeding 660 ml Output Urine Total 600 ml # Voids 1 2 Laboratory Tests Test 12/20/19 06:05 White Blood Count 6.9 K/UL (4.8-10.8) Red Blood Count 3.42 M/UL (4.70-6.10) L Hemoglobin 10.7 G/DL (14.2-18.0) L Hematocrit 31.4 % (42.0-52.0) L Mean Corpuscular Volume 92 FL (80-99) Mean Corpuscular Hemoglobin 31.3 PG (27.0-31.0) H Mean Corpuscular Hemoglobin Concent 34.1 G/DL (32.0-36.0) Red Cell Distribution Width 13.6 % (11.6-14.8) Platelet Count 336 K/UL (150-450) Mean Platelet Volume 6.5 FL (6.5-10.1) Neutrophils (%) (Auto) 59.1 % (45.0-75.0) Lymphocytes (%) (Auto) 24.6 % (20.0-45.0) Monocytes (%) (Auto) 13.4 % (1.0-10.0) H Eosinophils (%) (Auto) 2.1 % (0.0-3.0) Basophils (%) (Auto) 0.8 % (0.0-2.0) Sodium Level 136 MMOL/L (136-145) Potassium Level 5.5 MMOL/L (3.5-5.1) H Chloride Level 101 MMOL/L (98-107) Carbon Dioxide Level 33 MMOL/L (21-32) H Anion Gap 2 mmol/L (5-15) L Blood Urea Nitrogen 27 mg/dL (7-18) H Creatinine 1.8 MG/DL (0.55-1.30) H Estimat Glomerular Filtration Rate mL/min (>60) Glucose Level 162 MG/DL (74-106) H Calcium Level 8.8 MG/DL (8.5-10.1) Total Bilirubin 3.8 MG/DL (0.2-1.0) H Direct Bilirubin 3.3 MG/DL (0.0-0.3) H Aspartate Amino Transf (AST/SGOT) 49 U/L (15-37) H Alanine Aminotransferase (ALT/SGPT) 36 U/L (12-78) Alkaline Phosphatase 407 U/L (46-116) H Total Protein 6.8 G/DL (6.4-8.2) Albumin 1.6 G/DL (3.4-5.0) L Globulin 5.2 g/dL Albumin/Globulin Ratio 0.3 (1.0-2.7) L Objective HEAD AND NECK: Shows no JVD.Sclera icteric. LUNGS: Decreased breath sounds. CARDIOVASCULAR: Shows regular S1 and S2 with no gallop. ABDOMEN: Soft.S/P PEG EXTREMITIES: No pitting edema. Kyle Reynoso MD Dec 20, 2019 10:15
--- NOTE | 2019-12-20 10:17 | Infectious Diseases Prog Note ---
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, hypertension, Alzheimer dementia, acute renal failure, improving Hypernatremia Acalculous cholecystitis Atelectasis/ Pneumonia RECOMMENDATION: Continue Meropenem F/U LFT Subjective ROS Limited/Unobtainable: Yes Constitutional: Denies: fever Allergies: Coded Allergies: No Known Allergies (Unverified , 03/19/17) Objective Vital Signs Last 24 Hour Vital Signs Date Time Temp Pulse Resp B/P (MAP) Pulse Ox O2 Delivery O2 Flow Rate FiO2 12/20/19 08:00 98.1 60 20 137/76 (96) 95 12/20/19 08:00 107 12/20/19 05:31 113 116/65 12/20/19 04:00 99.1 113 28 116/65 (82) 93 12/20/19 04:00 111 12/20/19 00:00 99.0 113 20 128/54 (78) 99 12/20/19 00:00 113 12/19/19 21:24 106 124/60 12/19/19 21:00 Nasal Cannula 2.0 12/19/19 20:42 95 Room Air 21 12/19/19 20:00 98.9 106 19 124/60 (81) 98 12/19/19 20:00 106 12/19/19 16:00 100 12/19/19 16:00 97.6 102 19 104/51 (68) 98 12/19/19 14:00 105 109/58 12/19/19 12:00 105 12/19/19 12:00 98.1 104 20 109/58 (75) 93 Height (Feet): 5 Height (Inches): 5.00 Weight (Pounds): 177 General Appearance: no acute distress HEENT: other - dry mouth Respiratory/Chest: lungs clear Cardiovascular: normal rate Abdomen: soft, non tender, other - Gt feeding Extremities: other - mild hands edema Neurologic/Psychiatric: unresponsiveness Laboratory Tests Test 12/20/19 06:05 White Blood Count 6.9 K/UL (4.8-10.8) Red Blood Count 3.42 M/UL (4.70-6.10) L Hemoglobin 10.7 G/DL (14.2-18.0) L Hematocrit 31.4 % (42.0-52.0) L Mean Corpuscular Volume 92 FL (80-99) Mean Corpuscular Hemoglobin 31.3 PG (27.0-31.0) H Mean Corpuscular Hemoglobin Concent 34.1 G/DL (32.0-36.0) Red Cell Distribution Width 13.6 % (11.6-14.8) Platelet Count 336 K/UL (150-450) Mean Platelet Volume 6.5 FL (6.5-10.1) Neutrophils (%) (Auto) 59.1 % (45.0-75.0) Lymphocytes (%) (Auto) 24.6 % (20.0-45.0) Monocytes (%) (Auto) 13.4 % (1.0-10.0) H Eosinophils (%) (Auto) 2.1 % (0.0-3.0) Basophils (%) (Auto) 0.8 % (0.0-2.0) Sodium Level 136 MMOL/L (136-145) Potassium Level 5.5 MMOL/L (3.5-5.1) H Chloride Level 101 MMOL/L (98-107) Carbon Dioxide Level 33 MMOL/L (21-32) H Anion Gap 2 mmol/L (5-15) L Blood Urea Nitrogen 27 mg/dL (7-18) H Creatinine 1.8 MG/DL (0.55-1.30) H Estimat Glomerular Filtration Rate mL/min (>60) Glucose Level 162 MG/DL (74-106) H Calcium Level 8.8 MG/DL (8.5-10.1) Total Bilirubin 3.8 MG/DL (0.2-1.0) H Direct Bilirubin 3.3 MG/DL (0.0-0.3) H Aspartate Amino Transf (AST/SGOT) 49 U/L (15-37) H Alanine Aminotransferase (ALT/SGPT) 36 U/L (12-78) Alkaline Phosphatase 407 U/L (46-116) H Total Protein 6.8 G/DL (6.4-8.2) Albumin 1.6 G/DL (3.4-5.0) L Globulin 5.2 g/dL Albumin/Globulin Ratio 0.3 (1.0-2.7) L Current Medications Medications (Trade) Dose Ordered Sig/Filemon Route PRN Reason Start Time Stop Time Status Last Admin Dose Admin Acetaminophen (Tylenol) 325 mg Q6H PRN ORAL Mild Pain/Temp > 100.5 12/11/19 03:30 01/06/20 09:29 Acetaminophen (Tylenol) 650 mg Q4H PRN RECTAL Mild Pain (Pain Scale 1-3) 12/11/19 04:15 01/09/20 00:14 Dextrose (Dextrose 50%) 25 ml Q30M PRN IV Hypoglycemia 12/11/19 03:15 01/05/20 11:44 Dextrose (Dextrose 50%) 50 ml Q30M PRN IV Hypoglycemia 12/11/19 03:15 01/05/20 11:44 Diltiazem HCl (Cardizem) 30 mg EVERY 8 HOURS ORAL 12/11/19 06:00 01/05/20 13:59 12/20/19 05:31 Docusate Sodium (Colace) 100 mg TID ORAL 12/18/19 13:00 01/17/20 12:59 12/20/19 09:02 Insulin Aspart (NovoLOG) BEFORE MEALS AND HS SUBQ 12/11/19 06:30 01/05/20 16:29 12/20/19 05:37 Lorazepam (Ativan) 1 mg Q4HR PRN ORAL For Anxiety 12/18/19 22:15 12/25/19 22:14 12/18/19 22:34 Meropenem 1 gm/ Sodium Chloride 55 ml @ 110 mls/hr Q12HR IVPB 12/14/19 11:00 12/23/19 10:59 12/20/19 09:02 Mirtazapine (Remeron) 15 mg BEDTIME ORAL 12/18/19 22:15 01/17/20 22:14 12/19/19 21:24 Pantoprazole (Protonix) 40 mg BID ORAL 12/11/19 09:00 01/05/20 14:44 12/20/19 09:02 Potassium Chloride (K-Dur) 40 meq TWICE A DAY ORAL 12/11/19 09:00 01/08/20 09:59 12/19/19 17:44 Quetiapine Fumarate (SEROqueL) 25 mg EVERY 6 HOURS PRN ORAL For Anxiety 12/11/19 03:00 01/09/20 02:59 12/17/19 23:09 Risperidone (RisperDAL) 1 mg BEDTIME ORAL 12/18/19 22:15 01/17/20 22:14 12/19/19 21:25 Tamsulosin HCl (Flomax) 0.4 mg BEDTIME ORAL 12/11/19 21:00 01/05/20 20:59 12/19/19 21:25 Enrike Hadley MD Dec 20, 2019 10:17
[2019-12-20 12:00] VITALS: BP 130/61
--- NOTE | 2019-12-20 14:42 | NUR ---
NURSE NOTES:WOUND CARE FOLLOW-UP NOTES:Partial thickness pressure injury Sacrum . Base of wound is moist and viable. Edges adherent to base of wound.Periwound skin tone is dark without erythema or induration. Pt did not exhibit any distress when palpated. DTPI's Lateral and posterior R heel reabsorbing . Both wounds are maroon with less fluctuance. L heel is soft but blanchable. Wound Tx are effective and continued as ordered. No new Skin concerns noted.
--- NOTE | 2019-12-20 15:40 | Pulmonology Progress Note ---
Assessment/Plan Assessment/Plan IMPRESSION: 1. RLL pneumonia. Reviewed CT; pneumonia demonstrated R lung base. 2. Sepsis with lactic acidemia. 3. Acute renal insufficiency. 4. History of CHF. 5. Dementia. 6. S/P DISCUSSION: Continue antibiotics. I will follow carefully as respiratory webmethods consultant. GI/surgery following. No new recommendations Currently saturating well on low flow O2 OK to dc Kevin Lincoln M.D. Subjective Interval Events: None new Constitutional: Reports: no symptoms HEENT: Repors: no symptoms Respiratory: Reports: no symptoms Cardiovascular: Reports: no symptoms Gastrointestinal/Abdominal: Reports: no symptoms Allergies: Coded Allergies: No Known Allergies (Unverified , 03/19/17) Objective Last 24 Hour Vital Signs Date Time Temp Pulse Resp B/P (MAP) Pulse Ox O2 Delivery O2 Flow Rate FiO2 12/20/19 14:06 70 130/61 12/20/19 12:00 101 12/20/19 12:00 96.6 70 19 130/61 (84) 100 12/20/19 09:00 Nasal Cannula 2.0 12/20/19 08:00 98.1 60 20 137/76 (96) 95 12/20/19 08:00 107 12/20/19 05:31 113 116/65 12/20/19 04:00 99.1 113 28 116/65 (82) 93 12/20/19 04:00 111 12/20/19 00:00 99.0 113 20 128/54 (78) 99 12/20/19 00:00 113 12/19/19 21:24 106 124/60 12/19/19 21:00 Nasal Cannula 2.0 12/19/19 20:42 95 Room Air 21 12/19/19 20:00 98.9 106 19 124/60 (81) 98 12/19/19 20:00 106 12/19/19 16:00 100 12/19/19 16:00 97.6 102 19 104/51 (68) 98 Intake and Output 12/19/19 12/20/19 19:00 07:00 Intake Total 1115 ml Output Total 600 ml Balance 515 ml Free Water 200 ml IV Total 255 ml Tube Feeding 660 ml Output Urine Total 600 ml # Voids 1 2 General Appearance: no acute distress HEENT: normocephalic Respiratory/Chest: chest wall non-tender, lungs clear Cardiovascular: normal peripheral pulses, normal rate Abdomen: normal bowel sounds Laboratory Tests 12/20/19 06:05: White Blood Count 6.9, Red Blood Count 3.42L, Hemoglobin 10.7L, Hematocrit 31.4L , Mean Corpuscular Volume 92, Mean Corpuscular Hemoglobin 31.3H, Mean Corpuscular Hemoglobin Concent 34.1, Red Cell Distribution Width 13.6, Platelet Count 336, Mean Platelet Volume 6.5, Neutrophils (%) (Auto) 59.1, Lymphocytes (% ) (Auto) 24.6, Monocytes (%) (Auto) 13.4H, Eosinophils (%) (Auto) 2.1, Basophils (%) (Auto) 0.8, Sodium Level 136, Potassium Level 5.5H, Chloride Level 101, Carbon Dioxide Level 33H, Anion Gap 2L, Blood Urea Nitrogen 27H, Creatinine 1.8H, Estimat Glomerular Filtration Rate , Glucose Level 162H, Calcium Level 8.8, Total Bilirubin 3.8H, Direct Bilirubin 3.3H, Aspartate Amino Transf (AST/SGOT) 49H, Alanine Aminotransferase (ALT/SGPT) 36, Alkaline Phosphatase 407H, Total Protein 6.8, Albumin 1.6L, Globulin 5.2, Albumin/ Globulin Ratio 0.3L Current Medications Medications (Trade) Dose Ordered Sig/Filemon Route PRN Reason Start Time Stop Time Status Last Admin Dose Admin Acetaminophen (Tylenol) 325 mg Q6H PRN ORAL Mild Pain/Temp > 100.5 12/11/19 03:30 01/06/20 09:29 Acetaminophen (Tylenol) 650 mg Q4H PRN RECTAL Mild Pain (Pain Scale 1-3) 12/11/19 04:15 01/09/20 00:14 Dextrose (Dextrose 50%) 25 ml Q30M PRN IV Hypoglycemia 12/11/19 03:15 01/05/20 11:44 Dextrose (Dextrose 50%) 50 ml Q30M PRN IV Hypoglycemia 12/11/19 03:15 01/05/20 11:44 Diltiazem HCl (Cardizem) 30 mg EVERY 8 HOURS ORAL 12/11/19 06:00 01/05/20 13:59 12/20/19 14:06 Docusate Sodium (Colace) 100 mg TID ORAL 12/18/19 13:00 01/17/20 12:59 12/20/19 14:06 Insulin Aspart (NovoLOG) BEFORE MEALS AND HS SUBQ 12/11/19 06:30 01/05/20 16:29 12/20/19 12:25 Lorazepam (Ativan) 1 mg Q4HR PRN ORAL For Anxiety 12/18/19 22:15 12/25/19 22:14 12/18/19 22:34 Meropenem 1 gm/ Sodium Chloride 55 ml @ 110 mls/hr Q12HR IVPB 12/14/19 11:00 12/23/19 10:59 12/20/19 09:02 Mirtazapine (Remeron) 15 mg BEDTIME ORAL 12/18/19 22:15 01/17/20 22:14 12/19/19 21:24 Pantoprazole (Protonix) 40 mg BID ORAL 12/11/19 09:00 01/05/20 14:44 12/20/19 09:02 Risperidone (RisperDAL) 1 mg BEDTIME ORAL 12/18/19 22:15 01/17/20 22:14 12/19/19 21:25 Tamsulosin HCl (Flomax) 0.4 mg BEDTIME ORAL 12/11/19 21:00 01/05/20 20:59 12/19/19 21:25 Kevin Lincoln MD Dec 20, 2019 15:40
--- NOTE | 2019-12-20 15:49 | NUR ---
DISCHARGE PLANNED: PATIENT IS RETURNING TO [facility] CONV T: [phone] FOR NURSE TO NURSE REPORT ROOM#[facility] PICKUP TIME 5:45PM MARTINE DAUGHTER IS AWARE OF RETURN TO FACILITY
--- NOTE | 2019-12-20 15:55 | NUR ---
CASE MANAGEMENT: REVIEW 12/19/2019 SI:SEPSIS WITH LACTIC ACIDEMIA . ACUTE ON CHRONIC RENAL FAILURE . HIGH BILIRUBIN . JAUNDICE . PNA . (+) VRE 98.1 105 20 109/58 93% ON 2L/NC H/H 11.0/33.1 NA134 IS:IV MEROPENEM BID RISPERDAL PO BID CARDIZEM PO Q8H FLOMAX PO QHS PROTONIX PO BID : 2E TELE UNIT DCP: BACK TO [facility] WHEN STABLE PLAN: POSS DC IN AM
[2019-12-20 16:00] VITALS: BP 136/89
--- NOTE | 2019-12-20 16:20 | Surgery Progress Note ---
Surgery Progress Note Subjective Additional Comments lft's improving discussed with GI improving overall Objective Last 24 Hour Vital Signs Date Time Temp Pulse Resp B/P (MAP) Pulse Ox O2 Delivery O2 Flow Rate FiO2 12/20/19 14:06 70 130/61 12/20/19 12:00 101 12/20/19 12:00 96.6 70 19 130/61 (84) 100 12/20/19 09:00 Nasal Cannula 2.0 12/20/19 08:00 98.1 60 20 137/76 (96) 95 12/20/19 08:00 107 12/20/19 05:31 113 116/65 12/20/19 04:00 99.1 113 28 116/65 (82) 93 12/20/19 04:00 111 12/20/19 00:00 99.0 113 20 128/54 (78) 99 12/20/19 00:00 113 12/19/19 21:24 106 124/60 12/19/19 21:00 Nasal Cannula 2.0 12/19/19 20:42 95 Room Air 21 12/19/19 20:00 98.9 106 19 124/60 (81) 98 12/19/19 20:00 106 I&O Intake and Output 12/19/19 12/20/19 19:00 07:00 Intake Total 1115 ml Output Total 600 ml Balance 515 ml Free Water 200 ml IV Total 255 ml Tube Feeding 660 ml Output Urine Total 600 ml # Voids 1 2 Dressing: other Wound: other Drains: other Cardiovascular: RSR Respiratory: decreased breath sounds Abdomen: soft, present bowel sounds, decreased bowel sounds Extremities: no tenderness, no cyanosis Laboratory Tests Test 12/20/19 06:05 White Blood Count 6.9 K/UL (4.8-10.8) Red Blood Count 3.42 M/UL (4.70-6.10) L Hemoglobin 10.7 G/DL (14.2-18.0) L Hematocrit 31.4 % (42.0-52.0) L Mean Corpuscular Volume 92 FL (80-99) Mean Corpuscular Hemoglobin 31.3 PG (27.0-31.0) H Mean Corpuscular Hemoglobin Concent 34.1 G/DL (32.0-36.0) Red Cell Distribution Width 13.6 % (11.6-14.8) Platelet Count 336 K/UL (150-450) Mean Platelet Volume 6.5 FL (6.5-10.1) Neutrophils (%) (Auto) 59.1 % (45.0-75.0) Lymphocytes (%) (Auto) 24.6 % (20.0-45.0) Monocytes (%) (Auto) 13.4 % (1.0-10.0) H Eosinophils (%) (Auto) 2.1 % (0.0-3.0) Basophils (%) (Auto) 0.8 % (0.0-2.0) Sodium Level 136 MMOL/L (136-145) Potassium Level 5.5 MMOL/L (3.5-5.1) H Chloride Level 101 MMOL/L (98-107) Carbon Dioxide Level 33 MMOL/L (21-32) H Anion Gap 2 mmol/L (5-15) L Blood Urea Nitrogen 27 mg/dL (7-18) H Creatinine 1.8 MG/DL (0.55-1.30) H Estimat Glomerular Filtration Rate mL/min (>60) Glucose Level 162 MG/DL (74-106) H Calcium Level 8.8 MG/DL (8.5-10.1) Total Bilirubin 3.8 MG/DL (0.2-1.0) H Direct Bilirubin 3.3 MG/DL (0.0-0.3) H Aspartate Amino Transf (AST/SGOT) 49 U/L (15-37) H Alanine Aminotransferase (ALT/SGPT) 36 U/L (12-78) Alkaline Phosphatase 407 U/L (46-116) H Total Protein 6.8 G/DL (6.4-8.2) Albumin 1.6 G/DL (3.4-5.0) L Globulin 5.2 g/dL Albumin/Globulin Ratio 0.3 (1.0-2.7) L Plan Problems: (1) Sepsis Assessment & Plan: 89-year-old male with leukocytosis, fevers, tachycardia, abnormal labs. Abdominal ultrasound nondiagnostic MRCP unable to tolerate appreciate GI input - monitor trend labs in discussion with GI likely believed to be related to hepatic insufficiency Continue IV antibiotics per infectious disease No acute surgical invention planned IV fluids Trend labs Resuscitation CT evaluated. Noted abnormal gallbladder with thickened wall and pericholecystic fluid indicative of potential cholecystitis. Biliary tract without dilatation on CT. LFTs slightly improving. Given significant abnormal LFTs including bilirubin, no stones seen on CT, ultrasound findings, and new finding of potentially acute cholecystitis still unlikely for such abnormal bilirubin findings based on just cholecystitis alone without biliary obstruction. Unfortunately people unable to obtain MRCP therefore plan for EUS/ ERCP s/p discussed with GI. defer to GI for this. Hold on surgical intervention at this time given patient's age comorbidities and high risk surgery given above labs improving stable We will follow with recommendations Thank you for let me participate in patient's care Partial thickness pressure injury Sacrum . Base of wound is moist and viable. Edges adherent to base of wound.Periwound skin tone is dark without erythema or induration. Pt did not exhibit any distress when palpated. DTPI's Lateral and posterior R heel reabsorbing . Both wounds are maroon with less fluctuance. L heel is soft but blanchable. Wound Tx are effective and continued as ordered. No new Skin concerns noted. (2) Biliary obstruction Assessment & Plan: Findings: The study was limited due to bowel gas body habitus. The liver is mildly heterogeneous with questionable surface nodularity. Doppler interrogation of the main portal vein shows patency with hepatopedal, monophasic flow. There is no biliary ductal dilatation identified. Gallbladder is grossly unremarkable. There demonstrated part of the pancreas, aorta and IVC show no obvious abnormalities. The structures are poorly seen. Both kidneys are poorly seen. There is no obvious hydronephrosis. IMPRESSION: No acute findings Very limited study Gallbladder is distended, but there are no gallstones and no wall thickening demonstrated. Negative for dilated bile ducts Equivocally mildly increased renal echogenicity, if real could indicate medical renal disease. Negative for evidence of hydronephrosis Gallbladder is abnormal. Gallbladder wall is thickened. There is pericholecystic stranding and ill-definition of the gallbladder wall. Findings concerning for cholecystitis. No obvious stones are seen on this exam within the gallbladder. There is no biliary duct dilatation identified. There is interposition of the hepatic flexure which resides between the diaphragm and the anterior part of the liver. There are small perihepatic nodes present.. (3) Elevated LFTs Ajit Mcnulty Dec 20, 2019 16:20
--- NOTE | 2019-12-20 16:33 | NUR ---
NURSE NOTES: Report given to Leyla at [facility]. IV, monitoring coordinator and restraints d/ch.
--- NOTE | 2019-12-20 18:32 | General Progress Note ---
Assessment/Plan Problem List: (1) Sepsis ICD Codes: A41.9 - Sepsis, unspecified organism SNOMED: 82768253 Qualifiers: Qualified Codes: A41.9 - Sepsis, unspecified organism; R65.20 - Severe sepsis without septic shock; N17.9 - Acute kidney failure, unspecified (2) Alzheimer's dementia ICD Codes: G30.9 - Alzheimer's disease, unspecified; F02.80 - Dementia in other diseases classified elsewhere without behavioral disturbance SNOMED: 91068071 Qualifiers: Qualified Codes: G30.9 - Alzheimer's disease, unspecified; F02.80 - Dementia in other diseases classified elsewhere without behavioral disturbance (3) Elevated LFTs ICD Codes: R94.5 - Abnormal results of liver function studies SNOMED: 928548460, 682472613 (4) Cholestasis ICD Codes: K83.1 - Obstruction of bile duct SNOMED: 10314766 (5) Hyperbilirubinemia ICD Codes: E80.6 - Other disorders of bilirubin metabolism SNOMED: 33500153 (6) Left lower lobe pneumonia ICD Codes: J18.9 - Pneumonia, unspecified organism SNOMED: 473363090 Qualifiers: Qualified Codes: J18.9 - Pneumonia, unspecified organism (7) Renal failure (ARF), acute on chronic ICD Codes: N17.9 - Acute kidney failure, unspecified; N18.9 - Chronic kidney disease, unspecified SNOMED: 893916700 Qualifiers: Qualified Codes: N17.9 - Acute kidney failure, unspecified; N18.3 - Chronic kidney disease, stage 3 (moderate) Status: progressing Assessment/Plan: dc if ok w id see dc summary for details Subjective ROS Limited/Unobtainable: Yes Allergies: Coded Allergies: No Known Allergies (Unverified , 03/19/17) Objective Last 24 Hour Vital Signs Date Time Temp Pulse Resp B/P (MAP) Pulse Ox O2 Delivery O2 Flow Rate FiO2 12/20/19 16:00 97.7 69 20 136/89 (105) 98 12/20/19 16:00 100 12/20/19 14:06 70 130/61 12/20/19 12:00 101 12/20/19 12:00 96.6 70 19 130/61 (84) 100 12/20/19 09:00 Nasal Cannula 2.0 12/20/19 08:00 98.1 60 20 137/76 (96) 95 12/20/19 08:00 107 12/20/19 05:31 113 116/65 12/20/19 04:00 99.1 113 28 116/65 (82) 93 12/20/19 04:00 111 12/20/19 00:00 99.0 113 20 128/54 (78) 99 12/20/19 00:00 113 12/19/19 21:24 106 124/60 12/19/19 21:00 Nasal Cannula 2.0 12/19/19 20:42 95 Room Air 21 12/19/19 20:00 98.9 106 19 124/60 (81) 98 12/19/19 20:00 106 Intake and Output 12/19/19 12/20/19 19:00 07:00 Intake Total 1115 ml Output Total 600 ml Balance 515 ml Free Water 200 ml IV Total 255 ml Tube Feeding 660 ml Output Urine Total 600 ml # Voids 1 2 Laboratory Tests 12/20/19 06:05: White Blood Count 6.9, Red Blood Count 3.42L, Hemoglobin 10.7L, Hematocrit 31.4L , Mean Corpuscular Volume 92, Mean Corpuscular Hemoglobin 31.3H, Mean Corpuscular Hemoglobin Concent 34.1, Red Cell Distribution Width 13.6, Platelet Count 336, Mean Platelet Volume 6.5, Neutrophils (%) (Auto) 59.1, Lymphocytes (% ) (Auto) 24.6, Monocytes (%) (Auto) 13.4H, Eosinophils (%) (Auto) 2.1, Basophils (%) (Auto) 0.8, Sodium Level 136, Potassium Level 5.5H, Chloride Level 101, Carbon Dioxide Level 33H, Anion Gap 2L, Blood Urea Nitrogen 27H, Creatinine 1.8H, Estimat Glomerular Filtration Rate , Glucose Level 162H, Calcium Level 8.8, Total Bilirubin 3.8H, Direct Bilirubin 3.3H, Aspartate Amino Transf (AST/SGOT) 49H, Alanine Aminotransferase (ALT/SGPT) 36, Alkaline Phosphatase 407H, Total Protein 6.8, Albumin 1.6L, Globulin 5.2, Albumin/ Globulin Ratio 0.3L Height (Feet): 5 Height (Inches): 5.00 Weight (Pounds): 177 Cardiovascular: regular rhythm Gurmeet Elizabeth MD Dec 20, 2019 18:32
--- NOTE | 2019-12-20 18:57 | Hematology/Onc Progress Note ---
Assessment/Plan Assessment/Plan Assessment and Recs: # Thrombocytopenia -- is likely related to sepsis from pna, currently in 100- 150 range --> smear has been ordered and reviewed --> meds are noted --> okay to continue on abx --> plt trend 169-->148k-->141-->128-->135-->163-->258-->317-->336 --> hold off steroids --> hep and hiv NEG --> us abd negative for cirrhosis/hsm # Leukocytosis due to pna/lactic acidosis --> as per above --> smear has been reviewed --> as per id, on vanc/zosyn-->zosyn-->ligia --> wbc trend: 16.7 -->14.1-->0.8-->7-->8.6-->11-->10.7 --> PENDING eus/ercp # Anemia of chronic disease --> in this case due to hemodilution --> hgb trend: 12.3-->11.8-->10.5 # Hyperbilirubinemia --> gi aware as per their recs --> mri as needed --> eus/ercp per surg # AMS --> as per psych, on soft wr # Dysphagia -->2/5 s/p peg # Cholestasis # Biliary obstruction # Elevated LFTs # PNA/Sepsis Appreciate consultation and will tasha Rn. Subjective Allergies: Coded Allergies: No Known Allergies (Unverified , 03/19/17) Subjective 12/08: awake, no acute events, wbc 16.7, afebrile, on abx, us abd negative 12/09: no acute distress, lft's worsening, wbc improving, nc 3l 12/10: labs noted, plt remains stable, is unable to have mri, no bleeding 12/12: bilat wrist restraints, wbc improved, remains on zosyn 2: on ngt feeds and also abx, with restraints, remains confused 12/14: remains on soft restraints, seen by psych, no bleedng noted, smear reviewed 12/15: no major events, no bleeding, labs noted, wbc better 12/16: no events, labs noted, on abx, peg placed yesterday, no bleeding 12/17: confused, no acute events, nc, remains on ligia 12/19: nonverbal, no acute events, labs reviewed, afebrile 12/20: restraints, no overnight events, nc 2l, ligia Objective Objective Current Medications Medications (Trade) Dose Ordered Sig/Filemon Route PRN Reason Start Time Stop Time Status Last Admin Dose Admin Acetaminophen (Tylenol) 325 mg Q6H PRN ORAL Mild Pain/Temp > 100.5 12/11/19 03:30 01/06/20 09:29 Acetaminophen (Tylenol) 650 mg Q4H PRN RECTAL Mild Pain (Pain Scale 1-3) 12/11/19 04:15 01/09/20 00:14 Dextrose (Dextrose 50%) 25 ml Q30M PRN IV Hypoglycemia 12/11/19 03:15 01/05/20 11:44 Dextrose (Dextrose 50%) 50 ml Q30M PRN IV Hypoglycemia 12/11/19 03:15 01/05/20 11:44 Diltiazem HCl (Cardizem) 30 mg EVERY 8 HOURS ORAL 12/11/19 06:00 01/05/20 13:59 12/20/19 14:06 Docusate Sodium (Colace) 100 mg TID ORAL 12/18/19 13:00 01/17/20 12:59 12/20/19 17:02 Insulin Aspart (NovoLOG) BEFORE MEALS AND HS SUBQ 12/11/19 06:30 01/05/20 16:29 12/20/19 12:25 Lorazepam (Ativan) 1 mg Q4HR PRN ORAL For Anxiety 12/18/19 22:15 12/25/19 22:14 12/18/19 22:34 Meropenem 1 gm/ Sodium Chloride 55 ml @ 110 mls/hr Q12HR IVPB 12/14/19 11:00 12/23/19 10:59 12/20/19 09:02 Mirtazapine (Remeron) 15 mg BEDTIME ORAL 12/18/19 22:15 01/17/20 22:14 12/19/19 21:24 Pantoprazole (Protonix) 40 mg BID ORAL 12/11/19 09:00 01/05/20 14:44 12/20/19 17:02 Risperidone (RisperDAL) 1 mg BEDTIME ORAL 12/18/19 22:15 3/9/20 22:14 12/19/19 21:25 Tamsulosin HCl (Flomax) 0.4 mg BEDTIME ORAL 12/11/19 21:00 01/05/20 20:59 12/19/19 21:25 Last 24 Hour Vital Signs Date Time Temp Pulse Resp B/P (MAP) Pulse Ox O2 Delivery O2 Flow Rate FiO2 12/20/19 16:00 97.7 69 20 136/89 (105) 98 12/20/19 16:00 100 12/20/19 14:06 70 130/61 12/20/19 12:00 101 12/20/19 12:00 96.6 70 19 130/61 (84) 100 12/20/19 09:00 Nasal Cannula 2.0 12/20/19 08:00 98.1 60 20 137/76 (96) 95 12/20/19 08:00 107 12/20/19 05:31 113 116/65 12/20/19 04:00 99.1 113 28 116/65 (82) 93 12/20/19 04:00 111 12/20/19 00:00 99.0 113 20 128/54 (78) 99 12/20/19 00:00 113 12/19/19 21:24 106 124/60 12/19/19 21:00 Nasal Cannula 2.0 12/19/19 20:42 95 Room Air 21 12/19/19 20:00 98.9 106 19 124/60 (81) 98 12/19/19 20:00 106 12/19/19 16:00 100 12/19/19 16:00 97.6 102 19 104/51 (68) 98 12/19/19 14:00 105 109/58 12/19/19 12:00 105 12/19/19 12:00 98.1 104 20 109/58 (75) 93 12/19/19 09:33 73 20 93 Room Air 21 12/19/19 09:33 93 Room Air 21 12/19/19 09:00 Nasal Cannula 2.0 12/19/19 08:00 98.1 60 20 115/58 (77) 97 12/19/19 08:00 110 12/19/19 06:51 99 127/70 12/19/19 06:00 98.2 99 20 127/70 (89) 96 12/19/19 04:00 98 12/19/19 04:00 98.2 99 20 127/70 (89) 96 12/19/19 00:00 106 12/18/19 22:34 88 119/61 12/18/19 21:00 Nasal Cannula 2.0 12/18/19 20:04 80 18 96 Nasal Cannula 3.0 32 12/18/19 20:04 96 Nasal Cannula 3.0 32 12/18/19 20:00 85 12/18/19 20:00 98.4 88 20 119/61 (80) 96 Intake and Output 12/19/19 12/20/19 19:00 07:00 Intake Total 1115 ml Output Total 600 ml Balance 515 ml Free Water 200 ml IV Total 255 ml Tube Feeding 660 ml Output Urine Total 600 ml # Voids 1 2 Labs Test 12/18/19 06:17 12/19/19 07:25 12/19/19 07:28 12/20/19 06:05 White Blood Count 7.5 K/UL (4.8-10.8) 6.8 K/UL (4.8-10.8) 6.9 K/UL (4.8-10.8) Red Blood Count 3.28 M/UL (4.70-6.10) 3.56 M/UL (4.70-6.10) 3.42 M/UL (4.70-6.10) Hemoglobin 10.2 G/DL (14.2-18.0) 11.0 G/DL (14.2-18.0) 10.7 G/DL (14.2-18.0) Hematocrit 30.3 % (42.0-52.0) 33.1 % (42.0-52.0) 31.4 % (42.0-52.0) Mean Corpuscular Volume 92 FL (80-99) 93 FL (80-99) 92 FL (80-99) Mean Corpuscular Hemoglobin 31.0 PG (27.0-31.0) 30.7 PG (27.0-31.0) 31.3 PG (27.0-31.0) Mean Corpuscular Hemoglobin Concent 33.5 G/DL (32.0-36.0) 33.1 G/DL (32.0-36.0) 34.1 G/DL (32.0-36.0) Red Cell Distribution Width 13.7 % (11.6-14.8) 13.6 % (11.6-14.8) 13.6 % (11.6-14.8) Platelet Count 267 K/UL (150-450) 317 K/UL (150-450) 336 K/UL (150-450) Mean Platelet Volume 6.7 FL (6.5-10.1) 6.2 FL (6.5-10.1) 6.5 FL (6.5-10.1) Neutrophils (%) (Auto) 66.7 % (45.0-75.0) 68.8 % (45.0-75.0) 59.1 % (45.0-75.0) Lymphocytes (%) (Auto) 18.2 % (20.0-45.0) 16.9 % (20.0-45.0) 24.6 % (20.0-45.0) Monocytes (%) (Auto) 12.0 % (1.0-10.0) 11.2 % (1.0-10.0) 13.4 % (1.0-10.0) Eosinophils (%) (Auto) 2.4 % (0.0-3.0) 2.3 % (0.0-3.0) 2.1 % (0.0-3.0) Basophils (%) (Auto) 0.6 % (0.0-2.0) 0.8 % (0.0-2.0) 0.8 % (0.0-2.0) Sodium Level 134 MMOL/L (136-145) 134 MMOL/L (136-145) 136 MMOL/L (136-145) Potassium Level 4.8 MMOL/L (3.5-5.1) 5.1 MMOL/L (3.5-5.1) 5.5 MMOL/L (3.5-5.1) Chloride Level 99 MMOL/L (98-107) 98 MMOL/L (98-107) 101 MMOL/L (98-107) Carbon Dioxide Level 35 MMOL/L (21-32) 33 MMOL/L (21-32) 33 MMOL/L (21-32) Anion Gap 0 mmol/L (5-15) 3 mmol/L (5-15) 2 mmol/L (5-15) Blood Urea Nitrogen 14 mg/dL (7-18) 19 mg/dL (7-18) 27 mg/dL (7-18) Creatinine 1.3 MG/DL (0.55-1.30) 1.5 MG/DL (0.55-1.30) 1.8 MG/DL (0.55-1.30) Estimat Glomerular Filtration Rate mL/min (>60) mL/min (>60) mL/min (>60) Glucose Level 167 MG/DL (74-106) 187 MG/DL (74-106) 162 MG/DL (74-106) Calcium Level 8.7 MG/DL (8.5-10.1) 9.1 MG/DL (8.5-10.1) 8.8 MG/DL (8.5-10.1) Total Bilirubin 4.7 MG/DL (0.2-1.0) 4.5 MG/DL (0.2-1.0) 3.8 MG/DL (0.2-1.0) Direct Bilirubin 4.2 MG/DL (0.0-0.3) 4.0 MG/DL (0.0-0.3) 3.3 MG/DL (0.0-0.3) Gamma Glutamyl Transpeptidase 104 U/L (5-85) 116 U/L (5-85) Aspartate Amino Transf (AST/SGOT) 78 U/L (15-37) 63 U/L (15-37) 49 U/L (15-37) Alanine Aminotransferase (ALT/SGPT) 42 U/L (12-78) 40 U/L (12-78) 36 U/L (12-78) Alkaline Phosphatase 418 U/L (46-116) 432 U/L (46-116) 407 U/L (46-116) Total Protein 6.2 G/DL (6.4-8.2) 7.0 G/DL (6.4-8.2) 6.8 G/DL (6.4-8.2) Albumin 1.5 G/DL (3.4-5.0) 1.7 G/DL (3.4-5.0) 1.6 G/DL (3.4-5.0) Globulin 4.7 g/dL 5.3 g/dL 5.2 g/dL Albumin/Globulin Ratio 0.3 (1.0-2.7) 0.3 (1.0-2.7) 0.3 (1.0-2.7) Uric Acid 3.5 MG/DL (2.6-7.2) Phosphorus Level 3.0 MG/DL (2.5-4.9) Magnesium Level 1.5 MG/DL (1.8-2.4) Height (Feet): 5 Height (Inches): 5.00 Weight (Pounds): 177 Objective Physical Exam Vitals: noted General: no apparent distress HEENT: supple Resp: normal breath sounds, no respiratory distress, NC+ Cardiovascular: normal rate Gastrointestinal: normal inspection, non tender, +peg Skin: normal inspection, normal color, no rash, warm/dry, palpation normal, well hydrated Lymphatic: normal inspection, no adenopathy Damian Batres MD Dec 20, 2019 18:57
--- NOTE | 2019-12-20 20:04 | NUR ---
NURSE NOTES: Patient discharged taken via ambulance. Patient has no belongings. Pictures taken of wounds. Gtube in place and clamped with abdominal binder on. Condom catheter left on per [facility].
--- NOTE | 2019-12-21 11:17 | Discharge Summary ---
Discharge Summary Discharge Summary _ DATE OF ADMISSION: 12/05/2019 DATE OF DISCHARGE: 12/20/2019 DISCHARGED BY: Dr. Elizabeth REASON FOR ADMISSION: 89 years old male with past medical history of diabetes mellitus, dementia, presented from the longterm facility for evaluation due to fever and hypoxia. In the emergency room patient was hypoxic and tachycardic. Laboratory work-up revealed evidence of leukocytosis ,acute renal failure, lactic acidosis and hyperglycemia. Lactic acid 5.3, repeated 5.9 . Troponin was negative. After initial evaluation patient was diagnosed with sepsis likely due to pneumonia and UTI, renal failure and hyperglycemia. Septic work-up initiated. Patient subsequently admitted to telemetry floor for further management. CONSULTANTS: residential manager Dr. Braxton pulmonary Dr. Lincoln ID specialist Dr. Hadley security patrol officer Dr. Ashraf injection mold tooling technician/oncologist Dr. Batres surgery Dr. Mcnulty psychiatrist [facility] COURSE: Patient admitted to telemetry floor. Patient started on the IV fluids and empiric antibiotics. Blood cultures were negative. Influenza swab was negative. Urine culture revealed Proteus. Venous duplex bilateral lower extremity revealed no evidence of acute DVT. Supplemental oxygen provided and titrated to keep pulse oximetry above 92%. Pulmonary toilet with bronchodilator provided. Bedside swallow evaluation was done. Patient did not tolerate 12 Malay NG tube insertion. His daughter wanted him to have some oral diet for quality of life. NG tube was hold , and patient started on trial of diet for quality of life with one-to-one feeding and strict aspiration /reflux precautions. Blood pressure was managed with Cardizem. Echocardiogram revealed preserved ejection fraction 55%. No evidence of wall motion abnormality to the extent visualized. Right ventricular systolic pressure of 13. Patient demonstrated nonsustained ventricular tachycardia, 5 beats. No further nonsustained ventricular tachycardia , after potassium was replaced. Renal parameters and electrolytes were closely monitored. Electrolytes corrected as needed. Patient was slowly hydrated. Nephrotoxic's were avoided.. Abdominal ultrasound revealed no obvious hydronephrosis, mildly increased renal echogenicity if real, could indicate medical renal disease. Trabeculated bladder wall, possibly indicative of chronic bladder outlet obstruction. Prior to discharge BUN from 39 down to 27 and creatinine from 2.6 down to 1.8. Patient noted to have hyperbilirubinemia and elevated AST. GI specialist followed. Hepatitis panel was negative. HIV test was nonreactive. HSV 1 and 2 titers IgM were negative. EBV IgM negative. KLAUS screen was negative. LFT and bilirubin were closely monitored. CT scan of the abdomen and pelvis revealed suspected acute cholecystitis with wall thickening and ill defined slight dilatation of the gallbladder. No obvious gallstones. Right basilar pneumonia versus atelectasis. Blood sugar was managed with sliding scale insulin as needed. Patient was unable to keep NG tube . Oral intake was not sufficient. Family agreed to placement of PEG. Patient subsequently undergone upper endoscopy with PEG placement and endoscopic ultrasound 12/15, which revealed atrophic gastritis and dilated gallbladder with some sludge in the dilated common bile duct, wall thickening and some sludge in the distal common bile duct , suggestive of possible cholangitis. Antibiotic provided per ID recommendation. Leukocytosis resolved. No fevers. Mild thrombocytopenia resolved, likely was due to infectious process Hemoglobin and hematocrit were closely monitored with goal to keep hemoglobin above 7. Anemia work-up was consistent with anemia of chronic disease. Prior to discharge hemoglobin 10.7, hematocrit 31.4. Patient started on G-tube feeding with tube feeding formula and goal rate as per outside plant supervisor recommendation. LFT and bilirubin were improving. Per GI specialist hyperbilirubinemia was likely due to cholestasis, trending down. Patient started on Seroquel as per psychiatrist. Reality orientation provided Patient clinically stabilized and was ready for discharge to longterm facility for continuation of care. 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 Nonsustained V. tach, 5 beats DISCHARGE MEDICATIONS: See Medication Reconciliation list. DISCHARGE INSTRUCTIONS: Patient was discharged to the longterm facility. Follow up with medical doctor at the facility. I have been assigned to dictate discharge summary for this account. I was not involved in the patient's management. Jane Herrera NP Dec 21, 2019 11:17
--- NOTE | 2019-12-21 15:57 | NUR ---
*-* INSURANCE *-* ALL CLINICALS AND REVIEWS HAVE BEEN FAXED TO: [employer]ENNET[facility] HENRIQUE[facility] CM: BRANDI # [phone] FAX# [phone]
== END 2019-12-20 19:30 | DRG 720 ==
LOC: EDBD 17:05 → EMR 18:21 → EDBEDREQ 18:33 → EDBEDREQSVC 18:33 → EDBEDREQ 20:24 → 2W 20:38 → 2E 12-11 02:31
PROC: BD47ZZZ Ultrasonography of Gastrointestinal Tract (ICD-10-PCS; principal; 2019-12-15 09:33)
PROC: 0DJ08ZZ Inspection of Upper Intestinal Tract, Via Natural or Artificial Opening Endoscopic (ICD-10-PCS; principal; 2019-12-15 09:33)
PROC: 3E0G76Z Introduction of Nutritional Substance into Upper GI, Via Natural or Artificial Opening (ICD-10-PCS; principal; 2019-12-15 09:33)
PROC: 0DH63UZ Insertion of Feeding Device into Stomach, Percutaneous Approach (ICD-10-PCS; principal; 2019-12-15 09:33)
DX: A41.59 Other Gram-negative sepsis (principal); I47.2 Ventricular tachycardia; K83.09 Other cholangitis; G92 Toxic encephalopathy; J18.9 Pneumonia, unspecified organism; K83.1 Obstruction of bile duct; N17.9 Acute kidney failure, unspecified; K81.0 Acute cholecystitis; N39.0 Urinary tract infection, site not specified; E87.2 Acidosis; E11.65 Type 2 diabetes mellitus with hyperglycemia; R65.20 Severe sepsis without septic shock; E86.0 Dehydration; D63.8 Anemia in other chronic diseases classified elsewhere; R74.8 Abnormal levels of other serum enzymes; N32.89 Other specified disorders of bladder; D69.59 Other secondary thrombocytopenia; D72.829 Elevated white blood cell count, unspecified; I13.0 Hypertensive heart and chronic kidney disease with heart failure and stage 1 through stage 4 chronic kidney disease, or unspecified chronic kidney disease; I50.9 Heart failure, unspecified; K82.8 Other specified diseases of gallbladder; N18.3 Chronic kidney disease, stage 3 (moderate); E11.22 Type 2 diabetes mellitus with diabetic chronic kidney disease; R13.10 Dysphagia, unspecified; G30.9 Alzheimer's disease, unspecified; F02.80 Dementia in other diseases classified elsewhere, unspecified severity, without behavioral disturbance, psychotic disturbance, mood disturbance, and anxiety; J44.0 Chronic obstructive pulmonary disease with (acute) lower respiratory infection; R00.0 Tachycardia, unspecified; E87.0 Hyperosmolality and hypernatremia; K29.40 Chronic atrophic gastritis without bleeding; R26.2 Difficulty in walking, not elsewhere classified; N40.0 Benign prostatic hyperplasia without lower urinary tract symptoms; R62.7 Adult failure to thrive; Z68.29 Body mass index [BMI] 29.0-29.9, adult; M62.81 Muscle weakness (generalized); G47.00 Insomnia, unspecified; Z79.4 Long term (current) use of insulin
CPT/HCPCS: 36415; 71045; 74018; 74176; 76700; 80053; 80061; 80202; 81003; 82140; 82150; 82248; 82533; 82550; 82607; 82728; 82746; 82962; 82977; 83036; 83540; 83550; 83605; 83690; 83735; 83880; 83930; 84100; 84443; 84484; 84550; 85007; 85025; 85610; 85651; 85730; 86039; 86140; 86235; 86665; 86695; 86703; 86705; 86709; 86710; 86803; 87040; 87081; 87086; 87181; 87340; 93005; 93306; 93970; 94003; 94150; 94640; 94664; 96361; 96365; 96368; 99285; J1815; J7030; J7620; J8499